=== PATIENT | male | born 1955 | race Caucasian/White ===

== ENCOUNTER 2021-11-30 05:06 | Emergency (ER) | payer OTHER, MEDICARE, MEDICAID, SELFPAY ==
--- NOTE | 2021-11-30 05:18 | ED_ITS ---
Documented by User: Jayesh Luther MD 12/12/21 01:41 HPI - General Adult General: Chief complaint: Shortness of Breath/Dyspnea Stated complaint: pt states low o2, high bp, heart problems Time Seen by Provider: 11/30/21 05:18 History of Present Illness: Mr. Siegel is a 66-year-old gentleman with significant past medical history of hypertension, hyperlipidemia, history of stroke on Eliquis, history of COPD with continued tobacco abuse who presents to the emergency department due to shortness of breath. Onset of symptoms was gradual few days ago. He endorses dyspnea on exertion as well as lying flat, this is gotten to the point that is marked including tachycardia with minimal exertion. He denies irregularity or associated chest pain. Mild associated increased cough. Overall course of symptoms has been worsening. Intensity is moderate to severe. No other specific changes in health, exacerbating, or alleviating factors identified. Onset (ago): day(s) Severity: moderate Exacerbating factors: movement Review of Systems General: Reports: 10 or more systems reviewed and unremarkable except in HPI and below PFSH ED PFSH: Medical History COPD (chronic obstructive pulmonary disease) Hypertension Stroke Social History Smoking and tobacco status: current every day smoker Physical Exam Const: COMMON NORMALS: alert GENERAL APPEARANCE: cooperative, well developed and ill appearing (Mildly) HENMT: COMMON NORMALS: normocephalic and atraumatic HEAD & SCALP: normocephalic and atraumatic THROAT: posterior oropharynx normal Eye: COMMON NORMALS: conjunctivae normal CONJUNCTIVA: Yes conjunctivae normal SCLERA: sclerae normal Neck/C-Spine: COMMON NORMALS: supple GENERAL: Yes trachea midline Resp: EFFORT & INSPECTION: Yes able to speak in complete sentences and Yes tachypneic AUSCULTATION: diminished lung sounds Cardio: COMMON NORMALS: regular rhythm RATE: tachycardic RHYTHM: regular rhythm GI: COMMON NORMALS: Soft to palpation PALPATION: Yes Soft to palpation and No Tenderness to palpation present (GI) PERCUSSION: normal to percussion Extremity: GENERAL: Yes normal exam except as noted and No edema Neuro: COMMON NORMALS: moves all extremities SENSORIUM/ORIENTATION: Yes alert and No Orientation impaired Psych: COMMON NORMALS: mental status grossly normal and Normal thought process present THOUGHT PROCESS: Normal thought process present Course ED course: - Patient was seen and evaluated by me at bedside - Patient placed on cardiac monitors, IV access obtained - Initial evaluation notable for exam as above - RT and COPD exacerbation treatment ordered -Patient care handed off to Dr. Mccauley pending completion of ED evaluation and reassessment for disposition. Vital Signs: Vital signs: Vital Signs Temperature 98.2 F 11/30/21 05:21 Pulse Rate 96 11/30/21 08:52 Respiratory Rate 17 11/30/21 08:52 Blood Pressure 136/84 11/30/21 05:21 Pulse Oximetry 92 11/30/21 08:52 MDM - General Adult Medical Records I reviewed the patient's medical records. Lab Data I reviewed the patient's lab results. : 11/30/21 05:31 11/30/21 05:31 Radiology Impressions Chest X-Ray 11/30/21 05:22 IMPRESSION: Consolidation in the peripheral left lower lung concerning for recurrent pneumonia. ADDENDUM: 11/30/21 0649 THIS REPORT CONTAINS FINDINGS THAT MAY BE CRITICAL TO PATIENT CARE. The findings were verbally communicated via telephone conference with ER Physician at 6:45 AM CDT on 11/30/2021. The findings were acknowledged and understood. ADDENDUM: 11/30/[address] Mccauley Laboratory Results WBC 21.3 10^3/uL (4.0-10.0) H 11/30/21 05:31 RBC 4.84 10^6/uL (4.1-5.3) 11/30/21 05:31 Hgb 14.7 g/dL (11.7-16.6) 11/30/21 05:31 Hct 43.3 % (42.0-52.0) 11/30/21 05:31 MCV 89.5 fl (80-94) 11/30/21 05:31 MCH 30.4 pg (28.0-34.0) 11/30/21 05:31 MCHC 33.9 g/dL (30.0-36.0) 11/30/21 05:31 RDW 12.4 % (12.1-15.1) 11/30/21 05:31 Plt Count 361 10^3/cmm (130-400) 11/30/21 05:31 MPV 8.8 fL (7.4-10.4) 11/30/21 05:31 Neut % (Auto) 84.4 % 11/30/21 05:31 Lymph % (Auto) 9.8 % 11/30/21 05:31 Runnels % (Auto) 4.5 % 11/30/21 05:31 Eos % (Auto) 0.3 % 11/30/21 05:31 Baso % (Auto) 0.3 % 11/30/21 05:31 Neut # (Auto) 17.97 10^3/uL (1.8-7.7) H 11/30/21 05:31 Lymph # (Auto) 2.1 10^3/uL (0.8-4.8) 11/30/21 05:31 Runnels # (Auto) 1.0 10^3/uL (0.2-0.9) H 11/30/21 05:31 Eos # (Auto) 0.1 10^3/uL (0.0-0.8) 11/30/21 05:31 Baso # (Auto) 0.1 10^3/uL (0.0-0.1) 11/30/21 05:31 Nucleated RBC % (auto) 0 % 11/30/21 05:31 Nucleated RBCs # 0.0 /100WBC 11/30/21 05:31 PT 19.20 SECONDS (12.1-14.9) H 11/30/21 05:31 INR 1.58 (0.8-1.2) H 11/30/21 05:31 Sodium 131 mmol/L (136-145) L 11/30/21 05:31 Potassium 4.3 mmol/L (3.5-5.1) 11/30/21 05:31 Chloride 95 mmol/L (98-107) L 11/30/21 05:31 Carbon Dioxide 21 mmol/L (22-29) L 11/30/21 05:31 Anion Gap 19.3 (5-19) H 11/30/21 05:31 BUN 12 mg/dL (8-23) 11/30/21 05:31 Creatinine 0.8 mg/dL (0.7-1.2) 11/30/21 05:31 GFR Calculation 97.0 mL/min (90-130) 11/30/21 05:31 Glucose 176 mg/dL (65-115) H 11/30/21 05:31 Calculated Osmolality 276 mOsm/kg (285-295) L 11/30/21 05:31 Lactate 1.6 mmol/L (0.5-2.2) 11/30/21 06:14 Calcium 9.6 mg/dL (8.5-10.5) 11/30/21 05:31 Total Bilirubin 0.4 mg/dL (0.15-1.2) 11/30/21 05:31 AST 8 U/L (0-40) 11/30/21 05:31 ALT 12 U/L (0-41) 11/30/21 05:31 Alkaline Phosphatase 131 IU/L (40-130) H 11/30/21 05:31 Troponin T Baseline 15 ng/L (0-15) 11/30/21 05:31 C-Reactive Protein 196.4 mg/L (0.0-4.9) H 11/30/21 05:31 NT-Pro-B Natriuret Pep 158 pg/mL (0-125) H 11/30/21 05:31 Total Protein 8.3 g/dL (6.6-8.7) 11/30/21 05:31 Albumin 3.7 g/dL (3.5-5.2) 11/30/21 05:31 Globulin 4.6 g/dL (1.3-4.6) 11/30/21 05:31 Procalcitonin 0.18 ng/mL (0-0.5) 11/30/21 05:31 TSH 2.52 uIU/mL (0.27-4.20) 11/30/21 05:31 Coronavirus 229E (PCR) Not detected (NOT DETECT) 11/30/21 07:40 SARS-CoV-2 (PCR) Not detected (NOT DETECT) 11/30/21 07:40 Discharge Plan Discharge Patient Disposition: Home Clinical Impression: Community acquired pneumonia, Acute exacerbation of chronic obstructive airways disease, Leukocytosis, Hyponatremia Condition: Stable Prescriptions: New Medrol (Mathieu) 4 mg tablets,dose pack See Rx Instructions .ROUTE .COMPLEX Qty: 21 0RF Rx Instructions: orally per package directions albuterol sulfate 90 mcg/actuation HFA aerosol inhaler 2 inh INHALATION Q4H PRN (Reason: shortness of breath or wheezing) Qty: 18 0RF Discharge Orders: Discharge ED (Routine); Ordered 11/30/21 Ordered By: Roberto Mccauley Other Ambulatory Orders: DME: Oxygen (Order) Location: None Selected Ordered By: Roberto Mccauley Referrals: Felton Edgar [Primary Care Provider] - Patient Instructions: Opioid Safety Activity Restrictions/Additional Instructions: Follow-up with your primary care doctor within the next 3 to 5 days. If you have any worsening symptoms return. Wear oxygen continuously. Sign Out Sign Out Data: Patient Sign Out occurred on 11/30/21 at 06:52. Patient's care was discussed, and care was transferred from to Roberto Mccauley DO. Coding Level of Care Code ED Embalmer/Funeral Director for Chg Fwd Exam Comprehensive Documented by User: Roberto Mccauley DO 12/09/21 15:57 HPI - General Adult General: Chief complaint: Shortness of Breath/Dyspnea Stated complaint: pt states low o2, high bp, heart problems Time Seen by Provider: 11/30/21 05:18 [facility] ED PFSH: Medical History COPD (chronic obstructive pulmonary disease) Hypertension Stroke Social History Smoking and tobacco status: current every day smoker Course Vital Signs: Vital signs: Vital Signs Temperature 98.2 F 11/30/21 05:21 Pulse Rate 96 11/30/21 08:52 Respiratory Rate 17 11/30/21 08:52 Blood Pressure 136/84 11/30/21 05:21 Pulse Oximetry 92 11/30/21 08:52 MDM - General Adult Medical Decision Making Care assumed at change of shift. Patient has significantly elevated CRP as well as leukocytosis. However looking back through his records the previous blood counts we have are frequently elevated over 20,000. He does not take steroids on a regular basis. Also he is on Eliquis although in talking to him I am not entirely sure why. He states he had a stroke but he does not remember ever being told he had atrial fibrillation or DVT. He also has known coronary disease has previously had a stent. He normally does not wear oxygen but is requiring it now. Chest x-ray shows a left lower lobe pneumonia which appears to be recurrent. On exam his lung sounds are relatively clear other than some slight rales at the left base. He would prefer to go home. His oxygen nation improved with 2 L by nasal cannula. We will discharge him home with home oxygen start him on doxycycline and steroid taper. Strongly recommend he follow-up with his primary care doctor for follow-up chest x-ray and lab work including a CBC BMP to reevaluate his leukocytosis and hyponatremia and chest x-ray to document resolution of his pneumonia. He has any worsening symptoms he was asked to return to the emergency room. His CRP is marked elevated this could be due to his pneumonia or due to COVID which we are screening him for. If he does have COVID he is tolerating relatively well. He does not have a chest x-ray consistent with a typical COVID course at this time. Medical Records I reviewed the patient's medical records. Lab Data I reviewed the patient's lab results. : 11/30/21 05:31 11/30/21 05:31 Radiology Impressions Chest X-Ray 11/30/21 05:22 IMPRESSION: Consolidation in the peripheral left lower lung concerning for recurrent pneumonia. ADDENDUM: 11/30/21 0649 THIS REPORT CONTAINS FINDINGS THAT MAY BE CRITICAL TO PATIENT CARE. The findings were verbally communicated via telephone conference with ER Physician at 6:45 AM CDT on 11/30/2021. The findings were acknowledged and understood. ADDENDUM: 11/30/21 [address] Mccauley Laboratory Results WBC 21.3 10^3/uL (4.0-10.0) H 11/30/21 05:31 RBC 4.84 10^6/uL (4.1-5.3) 11/30/21 05:31 Hgb 14.7 g/dL (11.7-16.6) 11/30/21 05:31 Hct 43.3 % (42.0-52.0) 11/30/21 05:31 MCV 89.5 fl (80-94) 11/30/21 05:31 MCH 30.4 pg (28.0-34.0) 11/30/21 05:31 MCHC 33.9 g/dL (30.0-36.0) 11/30/21 05:31 RDW 12.4 % (12.1-15.1) 11/30/21 05:31 Plt Count 361 10^3/cmm (130-400) 11/30/21 05:31 MPV 8.8 fL (7.4-10.4) 11/30/21 05:31 Neut % (Auto) 84.4 % 11/30/21 05:31 Lymph % (Auto) 9.8 % 11/30/21 05:31 Runnels % (Auto) 4.5 % 11/30/21 05:31 Eos % (Auto) 0.3 % 11/30/21 05:31 Baso % (Auto) 0.3 % 11/30/21 05:31 Neut # (Auto) 17.97 10^3/uL (1.8-7.7) H 11/30/21 05:31 Lymph # (Auto) 2.1 10^3/uL (0.8-4.8) 11/30/21 05:31 Runnels # (Auto) 1.0 10^3/uL (0.2-0.9) H 11/30/21 05:31 Eos # (Auto) 0.1 10^3/uL (0.0-0.8) 11/30/21 05:31 Baso # (Auto) 0.1 10^3/uL (0.0-0.1) 11/30/21 05:31 Nucleated RBC % (auto) 0 % 11/30/21 05:31 Nucleated RBCs # 0.0 /100WBC 11/30/21 05:31 PT 19.20 SECONDS (12.1-14.9) H 11/30/21 05:31 INR 1.58 (0.8-1.2) H 11/30/21 05:31 Sodium 131 mmol/L (136-145) L 11/30/21 05:31 Potassium 4.3 mmol/L (3.5-5.1) 11/30/21 05:31 Chloride 95 mmol/L (98-107) L 11/30/21 05:31 Carbon Dioxide 21 mmol/L (22-29) L 11/30/21 05:31 Anion Gap 19.3 (5-19) H 11/30/21 05:31 BUN 12 mg/dL (8-23) 11/30/21 05:31 Creatinine 0.8 mg/dL (0.7-1.2) 11/30/21 05:31 GFR Calculation 97.0 mL/min (90-130) 11/30/21 05:31 Glucose 176 mg/dL (65-115) H 11/30/21 05:31 Calculated Osmolality 276 mOsm/kg (285-295) L 11/30/21 05:31 Lactate 1.6 mmol/L (0.5-2.2) 11/30/21 06:14 Calcium 9.6 mg/dL (8.5-10.5) 11/30/21 05:31 Total Bilirubin 0.4 mg/dL (0.15-1.2) 11/30/21 05:31 AST 8 U/L (0-40) 11/30/21 05:31 ALT 12 U/L (0-41) 11/30/21 05:31 Alkaline Phosphatase 131 IU/L (40-130) H 11/30/21 05:31 Troponin T Baseline 15 ng/L (0-15) 11/30/21 05:31 C-Reactive Protein 196.4 mg/L (0.0-4.9) H 11/30/21 05:31 NT-Pro-B Natriuret Pep 158 pg/mL (0-125) H 11/30/21 05:31 Total Protein 8.3 g/dL (6.6-8.7) 11/30/21 05:31 Albumin 3.7 g/dL (3.5-5.2) 11/30/21 05:31 Globulin 4.6 g/dL (1.3-4.6) 11/30/21 05:31 Procalcitonin 0.18 ng/mL (0-0.5) 11/30/21 05:31 TSH 2.52 uIU/mL (0.27-4.20) 11/30/21 05:31 Coronavirus 229E (PCR) Not detected (NOT DETECT) 11/30/21 07:40 SARS-CoV-2 (PCR) Not detected (NOT DETECT) 11/30/21 07:40 Discharge Plan Discharge Patient Disposition: Home Clinical Impression: Community acquired pneumonia, Acute exacerbation of chronic obstructive airways disease, Leukocytosis, Hyponatremia Condition: Stable Prescriptions: New Medrol (Mathieu) 4 mg tablets,dose pack See Rx Instructions .ROUTE .COMPLEX Qty: 21 0RF Rx Instructions: orally per package directions albuterol sulfate 90 mcg/actuation HFA aerosol inhaler 2 inh INHALATION Q4H PRN (Reason: shortness of breath or wheezing) Qty: 18 0 RF Discharge Orders: Discharge ED (Routine); Ordered 11/30/21 Ordered By: Roberto Mccauley Other Ambulatory Orders: DME: Oxygen (Order) Location: None Selected Ordered By: Roberto Mccauley Referrals: Felton Edgar [Primary Care Provider] - Patient Instructions: Opioid Safety Activity Restrictions/Additional Instructions: Follow-up with your primary care doctor within the next 3 to 5 days. If you have any worsening symptoms return. Wear oxygen continuously. Sign Out Sign Out Data: Patient Sign Out occurred on 11/30/21 at 06:52. Patient's care was discussed, and care was transferred from to Roberto Mccauley DO. Coding Level of Care Code ED Embalmer/Funeral Director for Bernice Fwd Exam Comprehensive
[2021-11-30 05:21] VITALS: BP 136/84; PULSE 120; RESP 24; TEMP 36.8; O2SAT 91; BMI 33.2
--- NOTE | 2021-11-30 05:22 | XRR_ITS ---
PROCEDURE INFORMATION: Exam: XR Chest Exam date and time: 11/30/2021 5:52 AM Age: 66 years old Clinical indication: Shortness of breath; Patient HX: C/O SOB with elevated heart rate. TECHNIQUE: Imaging protocol: XR of the chest. Views: 1 view. COMPARISON: 1. CT[place] Chest[place]ulmonary [place] [id number] 09/09/2018 8:26 AM 2. CR Chest 1 [place] [id number] 09/09/2018 7:04 AM FINDINGS: Lungs: Consolidation in the peripheral left lower lung concerning for recurrent pneumonia. The remainder of the lung parenchyma is clear. Pleural spaces: No pneumothorax. No pleural effusion. Heart/Mediastinum: The cardiomediastinal silhouette is within normal limits. Bones/joints: Unremarkable. XR/XR chest 1V portable [id number] IMPRESSION: Consolidation in the peripheral left lower lung concerning for recurrent pneumonia.
--- NOTE | 2021-11-30 05:23 | ECG_ITS ---
[facility] Test Date: 2021-11-30 Pat Name: Chacorta Siegel Department: Room: Gender: Male Retention Representative: : [id number] Requested By: Jayesh Luther Order Number: [id number] Jannie MD: Sada Fay M.D. Measurements Intervals [place] Rate: 115 P: 76 AK: 165 QRS: -86 QRSD: 89 T: 79 QT: 307 QTc: 426 Interpretive Statements SINUS TACHYCARDIA LEFT AXIS DEVIATION [QRS AXIS < -30] POSSIBLE RIGHT VENTRICULAR CONDUCTION DELAY [RSR (QR) IN V1/V2] POSSIBLE ANTERIOR MYOCARDIAL INFARCTION , OF INDETERMINATE AGE [30 ms Q WAVE IN V3/V4, OR R < 0.2 mV IN V4] Compared to ECG 09/09/2018 12:38:22 Left-axis deviation now present Sinus rhythm no longer present Myocardial infarct finding still present Electronically Signed On 11-30-2021 20:10:01 CDT by Sada Fay M.D. [id number]
[2021-11-30 05:37] LABS: Basophils # 0.1 10^3/uL (0.0-0.1); Basophils % 0.3 %; Eosinophils # 0.1 10^3/uL (0.0-0.8); Eosinophils % 0.3 %; Hematocrit 43.3 % (42.0-52.0); Hemoglobin 14.7 g/dL (11.7-16.6); Lymphocytes # 2.1 10^3/uL (0.8-4.8); Lymphocytes % 9.8 %; Mean Corpuscular HGB Conc 33.9 g/dL (30.0-36.0); Mean Corpuscular Hemoglobin 30.4 pg (28.0-34.0); Mean Corpuscular Volume 89.5 fl (80-94); Mean Platelet Volume 8.8 fL (7.4-10.4); Monocytes % 4.5 %; Neutrophils # 17.97 10^3/uL (1.8-7.7); Neutrophils % 84.4 %; Nucleated Red Blood Cells % 0 %; Platelet Count 361 10^3/cmm (130-400); Red Blood Count 4.84 10^6/uL (4.1-5.3); Red Cell Distribution Width 12.4 % (12.1-15.1); White Blood Count 21.3 10^3/uL (4.0-10.0)
[2021-11-30 05:57] LABS: INR 1.58 (0.8-1.2)
[2021-11-30 06:07] LABS: Troponin(5th) Baseline 15 ng/L (0-15)
[2021-11-30 06:14] VITALS: PULSE 104; RESP 18; O2SAT 94
[2021-11-30 06:14] LABS: NT Pro B Type Natriuretic Pept 158 pg/mL (0-125); Procalcitonin 0.18 ng/mL (0-0.5); Thyroid Stimulating Hormone 2.52 uIU/mL (0.27-4.20)
[2021-11-30] MEDS: ipratropium-albuterol 3 mL Neb INHALATION (06:14)
[2021-11-30 06:18] VITALS: PULSE 103
[2021-11-30] MEDS: sodium chloride 0.9% 1,000 ML 999 ML IV (06:18)
[2021-11-30] MEDS: doxycycline 100 MG in sodium chloride 0.9% (plus) 100 ML IV (06:19)
[2021-11-30 06:25] LABS: Alanine Aminotransferase 12 U/L (0-41); Albumin Level 3.7 g/dL (3.5-5.2); Alkaline Phosphatase 131 IU/L (40-130); Anion Gap 19.3 (5-19); Aspartate Amino Transferase 8 U/L (0-40); Blood Urea Nitrogen 12 mg/dL (8-23); C Reactive Protein 196.4 mg/L (0.0-4.9); Calcium 9.6 mg/dL (8.5-10.5); Carbon Dioxide 21 mmol/L (22-29); Chloride 95 mmol/L (98-107); Creatinine Clr Calc Pharmacy 98.5104; Globulin 4.6 g/dL (1.3-4.6); Glucose 176 mg/dL (65-115); Osmolality Calculated 276 mOsm/kg (285-295); Potassium 4.3 mmol/L (3.5-5.1); Sodium 131 mmol/L (136-145); Total Bilirubin 0.4 mg/dL (0.15-1.2); Total Protein 8.3 g/dL (6.6-8.7)
[2021-11-30 06:42] LABS: Lactate (Lactic Acid level) 1.6 mmol/L (0.5-2.2)
[2021-11-30 08:46] VITALS: O2SAT 85; O2SAT 90; O2SAT 93
[2021-11-30 08:51] VITALS: PULSE 96; RESP 17; O2SAT 92
[2021-11-30 08:52] VITALS: PULSE 96; RESP 17; O2SAT 92
[2021-11-30 10:39] LABS: Adenovirus Not Detected (NOT DETECT); Chlamydia Pneumoniae Not Detected (NOT DETECT); Coronavirus 229E,HKU1,NL63,OC4 Not Detected (NOT DETECT); Human Metapneumovirus Not Detected (NOT DETECT); Human Rhinovirus/Enterovirus Not Detected (NOT DETECT); Influenza A Not Detected (NOT DETECT); Influenza A H1 Not Detected (NOT DETECT); Influenza A H1-2009 Not Detected (NOT DETECT); Influenza A H3 Not Detected (NOT DETECT); Influenza B Not Detected (NOT DETECT); Mycoplasma Pneumoniae Not Detected (NOT DETECT); Parainfluenza Virus Type 1 Not Detected (NOT DETECT); Parainfluenza Virus Type 2 Not Detected (NOT DETECT); Parainfluenza Virus Type 3 Not Detected (NOT DETECT); Parainfluenza Virus Type 4 Not Detected (NOT DETECT); Respiratory Syncytial Virus A Not Detected (NOT DETECT); Respiratory Syncytial Virus B Not Detected (NOT DETECT); SARS-COV-2 Not Detected (NOT DETECT)
== END 2021-11-30 08:53 | disposition home or self-care (01) ==
PROVIDERS: Emergency Medicine; Emergency Provider Family Medicine; PCP Internal Medicine
DX: J18.9 Pneumonia, unspecified organism (principal); J44.1 Chronic obstructive pulmonary disease with (acute) exacerbation; J44.0 Chronic obstructive pulmonary disease with (acute) lower respiratory infection; D72.829 Elevated white blood cell count, unspecified; E87.1 Hypo-osmolality and hyponatremia; I10 Essential (primary) hypertension; F17.200 Nicotine dependence, unspecified, uncomplicated; I25.10 Atherosclerotic heart disease of native coronary artery without angina pectoris; Z86.73 Personal history of transient ischemic attack (TIA), and cerebral infarction without residual deficits; Z95.5 Presence of coronary angioplasty implant and graft; Z20.822 Contact with and (suspected) exposure to COVID-19; Z79.01 Long term (current) use of anticoagulants
CPT/HCPCS: 71045; 80053; 83605; 83880; 84145; 84443; 84484; 85025; 85610; 86140; 87635; 93005; 94640; 96365; 96375; 99285; J2930; J3490; J7030

== ENCOUNTER 2021-12-01 14:16 | Emergency (ER) | payer OTHER, MEDICARE, MEDICAID, SELFPAY ==
[2021-12-01 14:27] VITALS: BP 108/52; PULSE 105; RESP 18; TEMP 36.9; O2SAT 95; BMI 34.2
--- NOTE | 2021-12-01 15:32 | PC.NURSE ---
hr:102 rr: 18 bp: 125/70 o2:90
== END 2021-12-01 16:15 | disposition left against medical advice (07) ==
PROVIDERS: Emergency Provider Family Medicine; PCP Internal Medicine
DX: Z53.21 Procedure and treatment not carried out due to patient leaving prior to being seen by health care provider (principal); I95.9 Hypotension, unspecified

== ENCOUNTER 2021-12-27 05:20 | Emergency (ER) | payer OTHER, MEDICARE, MEDICAID, SELFPAY ==
[2021-12-27 05:28] VITALS: BP 104/82; PULSE 113; RESP 20; TEMP 36.6; O2SAT 95; BMI 33.3
--- NOTE | 2021-12-27 05:29 | CTR_ITS ---
PROCEDURE INFORMATION: Exam: CT Neck With Contrast Exam date and time: 12/27/2021 6:22 AM Age: 66 years old Clinical indication: Neck pain TECHNIQUE: Imaging protocol: Computed tomography of the neck with contrast. Total images: 2 Radiation optimization: All CT scans at this facility use at least one of these dose optimization techniques: automated exposure control; mA and/or kV adjustment per patient size (includes targeted exams where dose is matched to clinical indication); or iterative reconstruction. Contrast material: OMNI 350; Contrast volume: 95 ml; Contrast route: INTRAVENOUS (IV); COMPARISON: CT head wo con* [id number] 05/02/2018 9:21 AM RADIATION DOSE METRICS: Total DLP (mGy-cm): 508.13 FINDINGS: Pharynx: Irregular fluid collections within the para tonsillar tissues bilaterally right greater than left with irregular lobulated wall enhancement. Communication with oropharynx and hypopharynx noted and findings felt to represent abscesses. A necrotic mass could give a similar appearance. Irregular fluid collection is largest on the right and measures approximately 4.1 x 2.4 x 2.0 cm. Larynx: Unremarkable. Epiglottis is normal. Prevertebral and retropharyngeal spaces: No extension into the prevertebral/retropharyngeal space. Salivary glands: Normal. Glands are normal in size. Thyroid: Normal. No enlarged or calcified nodules. Lymph nodes: Mildly prominent enhancing lymph nodes in the neck bilaterally. Largest in the right jugular chain along anterior margin of the sternocleidomastoid muscle has short axis diameter of 12 mm. Trachea: Visualized trachea is unremarkable. Lungs: Moderate centrilobular emphysematous changes are present. Ground-glass opacity present in the left upper lobe nonspecific and may represent atelectasis, edema and or pneumonia. Esophagus: Debris noted and upper thoracic esophagus. Bones/joints: Unremarkable. No acute fracture. Vasculature: Mild atherosclerotic disease is evident. Calcified atherosclerotic plaque is noted at the carotid bifurcations bilaterally. Soft tissues: Unremarkable. No significant soft tissue swelling. Other findings: Examination is motion limited. CT/CT neck w con* [id number] IMPRESSION: 1. Irregular fluid collections within the para tonsillar tissues bilaterally right greater than left with irregular lobulated wall enhancement. Communication with oropharynx and hypopharynx noted and findings felt to represent abscesses. A necrotic mass could give a similar appearance. Irregular fluid collection is largest on the right and measures approximately 4.1 x 2.4 x 2.0 cm. 2. No extension into the prevertebral/retropharyngeal space. 3. Mildly prominent enhancing lymph nodes in the neck bilaterally. Largest in the right jugular chain along anterior margin of the sternocleidomastoid muscle has short axis diameter of 12 mm. 4. Debris noted and upper thoracic esophagus. 5. Moderate centrilobular emphysematous changes are present. 6. Ground-glass opacity present in the left upper lobe nonspecific and may represent atelectasis, edema and or pneumonia.
--- NOTE | 2021-12-27 05:36 | W.ED.GENADLT ---
HPI - General Adult General: Chief complaint: General Medical Stated complaint: unable to eat or drink Time Seen by Provider: 12/27/21 05:29 Source: patient Mode of arrival: ambulatory Limitations: no limitations History of Present Illness: 66-year-old male has a history of COPD states that he has had a cough over the last 2 to 3 weeks seen here 2 weeks ago with his cough. He states that today though he started having severe sore throat after coughing fit. He states that he is having pain in the right side of his throat with slight muffled voice and he said he is having painful and difficulty swallowing. He is handling secretions well here. He had no fever no vomiting no diarrhea. Associated symptoms: Deny chest pain, headache(s), nausea, rash or vomiting Review of Systems Const: Denies: fever(s), chills, body aches or change in appetite Eyes: Denies: blurry vision or eye discomfort ENMT: Reports: throat pain and odynophagia Card: Denies: chest pain Resp: Reports: non-productive cough GI: Denies: abdominal pain, nausea, vomiting or diarrhea : Denies: dysuria Musc: Denies: neck pain or back pain Skin/Breast: Denies: rash Neuro: Denies: headache(s) Psych: Denies: depression Paco/Lymph: Denies: easy bruising All/Imm: Denies: urticaria PFSH ED PFSH: Medical History COPD (chronic obstructive pulmonary disease) Hypertension Stroke Social History Smoking and tobacco status: current every day smoker Physical Exam Const: COMMON NORMALS: patient oriented x3 HENMT: COMMON NORMALS: normocephalic and atraumatic HEAD & SCALP: normocephalic and atraumatic OTHER: slight uvula devation to left with erythema to posterior pharynx no difficulty handling secretions Eye: COMMON NORMALS: Equal, round and reactive pupils present and EOMs intact bilaterally PUPIL: Yes Equal, round and reactive pupils present Neck/C-Spine: COMMON NORMALS: full ROM and supple Chest: COMMONS NORMALS: normal inspection of the chest and normal palpation of entire chest wall Resp: COMMON NORMALS: normal respiratory effort, No retractions, No use of accessory muscles and clear to auscultation bilaterally AUSCULTATION: clear to auscultation bilaterally Cardio: COMMON NORMALS: regular rhythm and No murmurs present (Cardio) RATE: tachycardic RHYTHM: regular rhythm GI: COMMON NORMALS: Normal to inspection, nondistended, normoactive bowel sounds present, Soft to palpation, non-tender and no masses PALPATION: Yes Soft to palpation Extremity: COMMON NORMALS: normal to inspection and full ROM Neuro: COMMON NORMALS: patient oriented x3, moves all extremities and no focal motor deficits Psych: COMMON NORMALS: mental status grossly normal, Normal thought process present and cooperative THOUGHT PROCESS: Normal thought process present Skin: COMMON NORMALS: no rashes or lesions noted and no wounds GENERAL SKIN EXAM: no rashes or lesions noted Course Vital Signs: Vital signs: Vital Signs Temperature 97.9 F 12/27/21 05:28 Pulse Rate 88 12/27/21 07:19 Respiratory Rate 23 H 12/27/21 07:19 Blood Pressure 109/60 12/27/21 07:19 Pulse Oximetry 94 12/27/21 07:19 [facility] - General Adult Medical Decision Making pt care turned over to dr. seals pending ct soft tissue neck Lab Data : 12/27/21 05:40 12/27/21 05:[address] 12/27/21 05:29 IMPRESSION: 1. Irregular fluid collections within the para tonsillar tissues bilaterally right greater than left with irregular lobulated wall enhancement. Communication with oropharynx and hypopharynx noted and findings felt to represent abscesses. A necrotic mass could give a similar appearance. Irregular fluid collection is largest on the right and measures approximately 4.1 x 2.4 x 2.0 cm. 2. No extension into the prevertebral/retropharyngeal space. 3. Mildly prominent enhancing lymph nodes in the neck bilaterally. Largest in the right jugular chain along anterior margin of the sternocleidomastoid muscle has short axis diameter of 12 mm. 4. Debris noted and upper thoracic esophagus. 5. Moderate centrilobular emphysematous changes are present. 6. Ground-glass opacity present in the left upper lobe nonspecific and may represent atelectasis, edema and or pneumonia. Laboratory Results WBC 14.0 10^3/uL (4.0-10.0) H 12/27/21 05:40 RBC 4.91 10^6/uL (4.1-5.3) 12/27/21 05:40 Hgb 14.5 g/dL (11.7-16.6) 12/27/21 05:40 Hct 42.4 % (42.0-52.0) 12/27/21 05:40 MCV 86.4 fl (80-94) 12/27/21 05:40 MCH 29.5 pg (28.0-34.0) 12/27/21 05:40 MCHC 34.2 g/dL (30.0-36.0) 12/27/21 05:40 RDW 12.8 % (12.1-15.1) 12/27/21 05:40 Plt Count 541 10^3/cmm (130-400) H 12/27/21 05:40 MPV 9.0 fL (7.4-10.4) 12/27/21 05:40 Neut % (Auto) 71.3 % 12/27/21 05:40 Lymph % (Auto) 19.9 % 12/27/21 05:40 Harvey % (Auto) 6.5 % 12/27/21 05:40 Eos % (Auto) 0.8 % 12/27/21 05:40 Baso % (Auto) 0.4 % 12/27/21 05:40 Neut # (Auto) 9.95 10^3/uL (1.8-7.7) H 12/27/21 05:40 Lymph # (Auto) 2.8 10^3/uL (0.8-4.8) 12/27/21 05:40 Harvey # (Auto) 0.9 10^3/uL (0.2-0.9) 12/27/21 05:40 Eos # (Auto) 0.1 10^3/uL (0.0-0.8) 12/27/21 05:40 Baso # (Auto) 0.1 10^3/uL (0.0-0.1) 12/27/21 05:40 Nucleated RBC % (auto) 0 % 12/27/21 05:40 Nucleated RBCs # 0.0 /100WBC 12/27/21 05:40 Sodium 132 mmol/L (136-145) L 12/27/21 05:40 Potassium 4.4 mmol/L (3.5-5.1) 12/27/21 05:40 Chloride 96 mmol/L (98-107) L 12/27/21 05:40 Carbon Dioxide 20 mmol/L (22-29) L 12/27/21 05:40 Anion Gap 20.4 (5-19) H 12/27/21 05:40 BUN 14 mg/dL (8-23) 12/27/21 05:40 Creatinine 0.8 mg/dL (0.7-1.2) 12/27/21 05:40 GFR Calculation 97.0 mL/min (90-130) 12/27/21 05:40 Glucose 136 mg/dL (65-115) H 12/27/21 05:40 Calculated Osmolality 277 mOsm/kg (285-295) L 12/27/21 05:40 Calcium 9.3 mg/dL (8.5-10.5) 12/27/21 05:40 Total Bilirubin 0.3 mg/dL (0.15-1.2) 12/27/21 05:40 AST 14 U/L (0-40) 12/27/21 05:40 ALT 13 U/L (0-41) 12/27/21 05:40 Alkaline Phosphatase 102 IU/L (40-130) 12/27/21 05:40 Total Protein 7.7 g/dL (6.6-8.7) 12/27/21 05:40 Albumin 3.4 g/dL (3.5-5.2) L 12/27/21 05:40 Globulin 4.3 g/dL (1.3-4.6) 12/27/21 05:40 Discharge Plan Discharge Patient Disposition: Xfer Short-Term Hosp Condition: Stable Referrals: Felton Edgar [Primary Care Provider] - Coding Level of Care Code ED [facility] Fwd Exam Comprehensive
[2021-12-27] MEDS: sodium chloride 0.9% 1,000 ML 999 ML IV (05:43)
[2021-12-27] MEDS: dexamethasone 10 mg/mL INJ IVP (05:43)
[2021-12-27 05:47] LABS: Basophils # 0.1 10^3/uL (0.0-0.1); Basophils % 0.4 %; Eosinophils # 0.1 10^3/uL (0.0-0.8); Eosinophils % 0.8 %; Hematocrit 42.4 % (42.0-52.0); Hemoglobin 14.5 g/dL (11.7-16.6); Lymphocytes # 2.8 10^3/uL (0.8-4.8); Lymphocytes % 19.9 %; Mean Corpuscular HGB Conc 34.2 g/dL (30.0-36.0); Mean Corpuscular Hemoglobin 29.5 pg (28.0-34.0); Mean Corpuscular Volume 86.4 fl (80-94); Monocytes # 0.9 10^3/uL (0.2-0.9); Monocytes % 6.5 %; Neutrophils # 9.95 10^3/uL (1.8-7.7); Neutrophils % 71.3 %; Nucleated Red Blood Cells % 0 %; Platelet Count 541 10^3/cmm (130-400); Red Blood Count 4.91 10^6/uL (4.1-5.3); Red Cell Distribution Width 12.8 % (12.1-15.1)
[2021-12-27 06:03] LABS: Alanine Aminotransferase 13 U/L (0-41); Albumin Level 3.4 g/dL (3.5-5.2); Alkaline Phosphatase 102 IU/L (40-130); Anion Gap 20.4 (5-19); Aspartate Amino Transferase 14 U/L (0-40); Blood Urea Nitrogen 14 mg/dL (8-23); Calcium 9.3 mg/dL (8.5-10.5); Carbon Dioxide 20 mmol/L (22-29); Chloride 96 mmol/L (98-107); Globulin 4.3 g/dL (1.3-4.6); Glucose 136 mg/dL (65-115); Osmolality Calculated 277 mOsm/kg (285-295); Potassium 4.4 mmol/L (3.5-5.1); Sodium 132 mmol/L (136-145); Total Bilirubin 0.3 mg/dL (0.15-1.2); Total Protein 7.7 g/dL (6.6-8.7)
[2021-12-27] MEDS: iohexol 350 mg/mL 100 mL Btl IV (06:21)
[2021-12-27] MEDS: vancomycin 1,000 MG in sodium chloride 0.9% 250 ML 250 MG IV (07:18)
[2021-12-27 07:19] VITALS: BP 109/60; PULSE 88; RESP 23; O2SAT 94
[2021-12-27] MEDS: ampicillin-sulbactam 3 GM in sodium chloride 0.9% (plus) 50 ML IV (08:21)
[2021-12-27] MEDS: nicotine 21 mg Patch 1 PATCH TRANSDERMA (08:27)
[2021-12-27] MEDS: ketorolac 30 mg/mL INJ 15 MG IVP (09:11)
== END 2021-12-27 09:28 | disposition short-term general hospital (02) ==
PROVIDERS: Emergency Medicine; Emergency Provider Family Medicine; PCP Internal Medicine
DX: J36 Peritonsillar abscess (principal); R59.0 Localized enlarged lymph nodes; J44.9 Chronic obstructive pulmonary disease, unspecified; F17.200 Nicotine dependence, unspecified, uncomplicated; I10 Essential (primary) hypertension; Z86.73 Personal history of transient ischemic attack (TIA), and cerebral infarction without residual deficits
CPT/HCPCS: 70491; 80053; 85025; 96365; 96367; 96375; 99285; J0295; J1100; J1885; J3370; J7030; J7050; Q9967

== ENCOUNTER 2022-01-22 04:04 | Emergency (ER) | payer OTHER, MEDICARE, MEDICAID, SELFPAY ==
[2022-01-22] VITALS (7 sets, daily range): BP systolic 75–118; BP diastolic 53–66; PULSE 84–114; RESP 18–28; TEMP 37; O2SAT 91–94; BMI 34.2
--- NOTE | 2022-01-22 04:16 | ECG_ITS ---
[facility] Test Date: 2022-01-22 Pat Name: Chacorta Siegel Department: Room: Gender: Male [employer]: : [id number] Requested By: Mayur Sanchez Order Number: [id number] Jannie MD: Matthias Banerjee M.D. Measurements Intervals [place] Rate: 110 P: 56 VT: 150 QRS: 248 QRSD: 96 T: 45 QT: 321 QTc: 434 Interpretive Statements SINUS TACHYCARDIA POSSIBLE RIGHT VENTRICULAR HYPERTROPHY [SOME/ALL OF: PROMINENT R IN V1, LATE TRANSITION, RAD, TORI, SSS] POSSIBLE ANTERIOR MYOCARDIAL INFARCTION , OF INDETERMINATE AGE [30 ms Q WAVE IN V3/V4, OR R < 0.2 mV IN V4] Compared to ECG 11/30/2021 05:27:47 Atrial abnormality now present Left-axis deviation no longer present Myocardial infarct finding still present Electronically Signed On 01-22-2022 10:36:59 CDT by Matthias Banerjee M.D. [email or web address]
--- NOTE | 2022-01-22 04:44 | CTR_ITS ---
PROCEDURE INFORMATION: Exam: CTA Chest With Contrast Exam date and time: 01/22/2022 6:16 AM Age: 66 years old Clinical indication: Shortness of breath; Additional info: SOB, hypoxia, tachycardia TECHNIQUE: Imaging protocol: Computed tomographic angiography of the chest with contrast. 3D rendering (Not supervised by radiologist): MIP and/or 3D reconstructed images were created by the technologist. Radiation optimization: All CT scans at this facility use at least one of these dose optimization techniques: automated exposure control; mA and/or kV adjustment per patient size (includes targeted exams where dose is matched to clinical indication); or iterative reconstruction. Contrast material: OMNI 350; Contrast volume: 70 ml; Contrast route: INTRAVENOUS (IV); COMPARISON: CTA Chest-Pulmonary Emb [id number] 09/09/2018 8:26 AM RADIATION DOSE METRICS: Total DLP (mGy-cm): 396.51 FINDINGS: Pulmonary arteries: Normal. No pulmonary emboli. Aorta: Unremarkable. No aortic aneurysm. No aortic dissection. Lungs: Centrilobular emphysema is present. There is ground-glass opacities scattered throughout both lungs in a predominantly peripheral distribution, involving mainly the left lung. Pleural spaces: Unremarkable. No pneumothorax. No pleural effusion. Heart: Normal heart size. Coronary atherosclerotic calcifications seen. No pericardial effusion. Lymph nodes: Tiny calcified lymph nodes noted in the left hilar region, likely sequela of previous granulomatous disease. Liver: The liver demonstrates volume redistribution and nodular contour, consistent with cirrhosis. No discrete mass lesion seen. Spleen: There is tiny calcific densities scattered throughout the spleen, likely sequela of previous granulomatous disease. The spleen is otherwise unremarkable. Bones/joints: Degenerative changes of the spine seen. Old healed fracture deformity noted in the left lower ribcage. Soft tissues: Unremarkable. CT/CT angio chest PE protcl [id number] IMPRESSION: Commonly reported imaging features of (COVID-19) pneumonia are present. Other processes such as influenza pneumonia and organizing pneumonia, as can be seen with drug toxicity and connective tissue disease, can cause a similar imaging pattern.
--- NOTE | 2022-01-22 04:44 | CTR_ITS ---
PROCEDURE INFORMATION: Exam: CT Head Without Contrast Exam date and time: 01/22/2022 6:10 AM Age: 66 years old Clinical indication: Pain; Headache; Other: Throat cancer diagnosis recently; Additional info: Headache HX cancer TECHNIQUE: Imaging protocol: Computed tomography of the head without contrast. Radiation optimization: All CT scans at this facility use at least one of these dose optimization techniques: automated exposure control; mA and/or kV adjustment per patient size (includes targeted exams where dose is matched to clinical indication); or iterative reconstruction. COMPARISON: CT head wo con* [id number] 05/02/2018 9:21 AM RADIATION DOSE METRICS: Total DLP (mGy-cm): 1023.28 FINDINGS: Brain: Patchy hypoattenuation in the periventricular and subcortical white matter, consistent with chronic small vessel ischemia. No CT evidence of acute ischemia. No acute hemorrhage. No mass effect. Remote lacunar infarcts in the left basal ganglia. Cerebral ventricles: No ventriculomegaly. Paranasal sinuses: Moderate mucosal thickening of the left maxillary sinus. Mild mucosal thickening of the ethmoid air cells. Mastoid air cells: Visualized mastoid air cells are well aerated. Bones/joints: Unremarkable. No acute fracture. Soft tissues: Unremarkable. CT/CT head wo con* [id number] IMPRESSION: No acute intracranial abnormality. Please note that MRI is more sensitive for early changes of acute ischemia.
[2022-01-22] MEDS: sodium chloride 0.9% 1,000 ML 999 ML IV ×2 (04:55→09:26)
[2022-01-22 05:02] LABS: Basophils # 0.1 10^3/uL (0.0-0.1); Basophils % 0.3 %; Eosinophils # 0.2 10^3/uL (0.0-0.8); Eosinophils % 1.1 %; Hematocrit 41.9 % (42.0-52.0); Hemoglobin 13.7 g/dL (11.7-16.6); Lymphocytes # 2.8 10^3/uL (0.8-4.8); Lymphocytes % 14.2 %; Mean Corpuscular HGB Conc 32.7 g/dL (30.0-36.0); Mean Corpuscular Hemoglobin 29.3 pg (28.0-34.0); Mean Corpuscular Volume 89.5 fl (80-94); Mean Platelet Volume 9.7 fL (7.4-10.4); Monocytes # 1.3 10^3/uL (0.2-0.9); Monocytes % 6.8 %; Neutrophils # 14.83 10^3/uL (1.8-7.7); Neutrophils % 76.8 %; Nucleated Red Blood Cells % 0 %; Platelet Count 492 10^3/cmm (130-400); Red Blood Count 4.68 10^6/uL (4.1-5.3); Red Cell Distribution Width 13.3 % (12.1-15.1); White Blood Count 19.3 10^3/uL (4.0-10.0)
[2022-01-22] MEDS: iohexol 350 mg/mL 100 mL Btl IV (05:15)
[2022-01-22 05:19] LABS: Troponin(5th) Baseline 19 ng/L (0-15)
[2022-01-22 05:20] LABS: Lactate (Lactic Acid level) 2.1 mmol/L (0.5-2.2)
[2022-01-22 05:21] LABS: Alanine Aminotransferase 25 U/L (0-41); Albumin Level 3.2 g/dL (3.5-5.2); Alkaline Phosphatase 161 IU/L (40-130); Anion Gap 21.2 (5-19); Aspartate Amino Transferase 30 U/L (0-40); Blood Urea Nitrogen 46 mg/dL (8-23); C Reactive Protein 117.8 mg/L (0.0-4.9); Calcium 10.1 mg/dL (8.5-10.5); Carbon Dioxide 23 mmol/L (22-29); Chloride 93 mmol/L (98-107); Globulin 4.4 g/dL (1.3-4.6); Glomerular Filtration Rate 55.4 mL/min (90-130); Glucose 129 mg/dL (65-115); Osmolality Calculated 290 mOsm/kg (285-295); Potassium 4.2 mmol/L (3.5-5.1); Sodium 133 mmol/L (136-145); Total Bilirubin 0.3 mg/dL (0.15-1.2); Total Protein 7.6 g/dL (6.6-8.7)
[2022-01-22 05:24] LABS: D Dimer 7.11 ug/mIFEU (0-0.59)
[2022-01-22 05:28] LABS: Procalcitonin 0.31 ng/mL (0-0.5)
[2022-01-22 05:41] LABS: ABG PCO2 40.2 mmHg (35-45); ABG PH Result 7.39 (7.35-7.45); Base Excess ABG -0.9 mmol/L (-2.0-2.0); Blood Gas Allen Test Pos; Blood Gas Sample Site Radial, left; Blood Gas Sample Type Arterial; HCO3 ABG 24.1 mmol/L (22-26); Oxygen Device NC; PO2 ABG 63.6 mmHg (80.0-100.0)
--- NOTE | 2022-01-22 06:00 | W.ED.GENADLT ---
Documented by User: Mayur Henderson DO 01/22/22 19:07 HPI - General Adult General: Chief complaint: General Medical Stated complaint: weakness Time Seen by Provider: 01/22/22 04:22 History of Present Illness: 66-year-old gentleman who was diagnosed with throat cancer on 12/27. He recently had biopsies performed a couple of weeks ago. He does not know the results of these yet. He presents with multiple complaints including headache, shortness of breath, decreased appetite, weight loss, generalized weakness. He denies any fever. He has a chronic cough with sputum production, as he is a smoker. This has not changed significantly. Onset (ago): day(s) Radiation: non-radiation Severity: moderate Quality: other Pain Consistency: other Relieving factors: other Associated symptoms: Reports no associated symptoms, dyspnea and nausea; Deny chest pain, fevers/chills or vomiting Review of Systems Const: Denies: fever(s) ENMT: Reports: throat pain Card: Denies: chest pain Resp: Reports: dyspnea and productive cough GI: Reports: nausea; Denies: vomiting PFSH ED PFSH: Medical History COPD (chronic obstructive pulmonary disease) Hypertension Stroke Social History Smoking and tobacco status: current every day smoker Physical Exam Const: GENERAL APPEARANCE: cooperative and ill appearing (Mildly); not frail appearing HENMT: COMMON NORMALS: normocephalic, atraumatic and Normal external nose present HEAD & SCALP: normocephalic and atraumatic FACE & SINUS: normal facial exam NOSE: Normal external nose present Eye: COMMON NORMALS: Equal, round and reactive pupils present PUPIL: Yes Equal, round and reactive pupils present Chest: COMMONS NORMALS: normal inspection of the chest CHEST: Yes Symmetrical chest wall rise Resp: EFFORT & INSPECTION: Yes symmetric chest movement and Yes tachypneic AUSCULTATION: wheezes (intermittent) and diminished lung sounds Cardio: COMMON NORMALS: regular rate and regular rhythm RATE: regular rate RHYTHM: regular rhythm GI: COMMON NORMALS: Normal to inspection, nondistended, normoactive bowel sounds present, Soft to palpation and non-tender PALPATION: Yes Soft to palpation Neuro: HANSEL COMA SCALE: document GCS findings [place] coma scale eye opening: Spontaneous [place] coma scale verbal response: Orientated [place] coma scale motor response: Obey commands [place] coma scale total score: 15 Course Vital Signs: Vital signs: Vital Signs Temperature 98.6 F 01/22/22 04:10 Pulse Rate 84 01/22/22 09:37 Respiratory Rate 22 H 01/22/22 09:37 Blood Pressure 106/56 01/22/22 09:37 Pulse Oximetry 91 01/22/22 09:37 Oxygen Delivery Me thod 01/22/22 09:37 Oxygen Flow Rate 3 01/22/22 09:37 MDM - General Adult Medical Decision Making White blood cell count is 19.3. D-dimer is 7. Creatinine is 1.3 with a BUN of 46. CT of the head, and CTA of the chest are pending at this point. He will be checked out to Dr. Hernandez at shift change. Lab Data : 01/22/22 04:23 01/22/22 04:23 Radiology Impressions Chest CTA 01/22/22 04:44 IMPRESSION: Commonly reported imaging features of (COVID-19) pneumonia are present. Other processes such as influenza pneumonia and organizing pneumonia, as can be seen with drug toxicity and connective tissue disease, can cause a similar imaging pattern. Head CT 01/22/22 04:44 IMPRESSION: No acute intracranial abnormality. Please note that MRI is more sensitive for early changes of acute ischemia. Laboratory Results WBC 19.3 10^3/uL (4.0-10.0) H 01/22/22 04:23 RBC 4.68 10^6/uL (4.1-5.3) 01/22/22 04:23 Hgb 13.7 g/dL (11.7-16.6) 01/22/22 04:23 Hct 41.9 % (42.0-52.0) L 01/22/22 04:23 MCV 89.5 fl (80-94) 01/22/22 04:23 MCH 29.3 pg (28.0-34.0) 01/22/22 04:23 MCHC 32.7 g/dL (30.0-36.0) 01/22/22 04:23 RDW 13.3 % (12.1-15.1) 01/22/22 04:23 Plt Count 492 10^3/cmm (130-400) H 01/22/22 04:23 MPV 9.7 fL (7.4-10.4) 01/22/22 04:23 Neut % (Auto) 76.8 % 01/22/22 04:23 Lymph % (Auto) 14.2 % 01/22/22 04:23 [place] % (Auto) 6.8 % 01/22/22 04:23 Eos % (Auto) 1.1 % 01/22/22 04:23 Baso % (Auto) 0.3 % 01/22/22 04:23 Neut # (Auto) 14.83 10^3/uL (1.8-7.7) H 01/22/22 04:23 Lymph # (Auto) 2.8 10^3/uL (0.8-4.8) 01/22/22 04:23 [place] # (Auto) 1.3 10^3/uL (0.2-0.9) H 01/22/22 04:23 Eos # (Auto) 0.2 10^3/uL (0.0-0.8) 01/22/22 04:23 Baso # (Auto) 0.1 10^3/uL (0.0-0.1) 01/22/22 04:23 Nucleated RBC % (auto) 0 % 01/22/22 04:23 Nucleated RBCs # 0.0 /100WBC 01/22/22 04:23 D-Dimer 7.11 ug/mIFEU (0-0.59) H 01/22/22 04:23 Specimen Type Arterial 01/22/22 05:29 Sample Site Radial, left 01/22/22 05:29 ABG pH 7.39 (7.35-7.45) 01/22/22 05:29 ABG pCO2 40.2 mmHg (35-45) 01/22/22 05:29 ABG pO2 63.6 mmHg (80.0-100.0) L 01/22/22 05:29 ABG HCO3 24.1 mmol/L (22-26) 01/22/22 05:29 ABG Base Excess -0.9 mmol/L (-2.0-2.0) 01/22/22 05:29 Roge Test Pos 01/22/22 05:29 Hematocrit 37.0 % (42-52) L 01/22/22 05:29 O2 Delivery Device Nc 01/22/22 05:29 O2 Liters/Min 2.0 % 01/22/22 05:29 Criminal Psychologist ID Xiomara 01/22/22 05:29 Sodium 133 mmol/L (136-145) L 01/22/22 04:23 Potassium 4.2 mmol/L (3.5-5.1) 01/22/22 04:23 Chloride 93 mmol/L (98-107) L 01/22/22 04:23 Carbon Dioxide 23 mmol/L (22-29) 01/22/22 04:23 Anion Gap 21.2 (5-19) H 01/22/22 04:23 BUN 46 mg/dL (8-23) H 01/22/22 04:23 Creatinine 1.3 mg/dL (0.7-1.2) H 01/22/22 04:23 GFR Calculation 55.4 mL/min (90-130) L 01/22/22 04:23 Glucose 129 mg/dL (65-115) H 01/22/22 04:23 Calculated Osmolality 290 mOsm/kg (285-295) 01/22/22 04:23 Lactate 2.1 mmol/L (0.5-2.2) 01/22/22 04:23 Calcium 10.1 mg/dL (8.5-10.5) 01/22/22 04:23 Total Bilirubin 0.3 mg/dL (0.15-1.2) 01/22/22 04:23 AST 30 U/L (0-40) 01/22/22 04:23 ALT 25 U/L (0-41) 01/22/22 04:23 Alkaline Phosphatase 161 IU/L (40-130) H 01/22/22 04:23 Troponin T Baseline 19 ng/L (0-15) H 01/22/22 04:23 Troponin T 120 Minute 18.08 ng/L (0-15) H 01/22/22 06:34 Delta Troponin T -0.92 ABS# (0-10) L 01/22/22 06:34 C-Reactive Protein 117.8 mg/L (0.0-4.9) H 01/22/22 04:23 Total Protein 7.6 g/dL (6.6-8.7) 01/22/22 04:23 Albumin 3.2 g/dL (3.5-5.2) L 01/22/22 04:23 Globulin 4.4 g/dL (1.3-4.6) 01/22/22 04:23 Procalcitonin 0.31 ng/mL (0-0.5) 01/22/22 04:23 Urine Color Yellow (Yellow) 01/22/22 07:58 Urine Appearance Sl hazy (CLEAR) 01/22/22 07:58 Urine pH 5 (5-7) 01/22/22 07:58 Ur Specific [place] 1.005 (1.005-1.030) 01/22/22 07:58 Urine Protein Neg (Negative) 01/22/22 07:58 Urine Glucose (UA) Norm (Normal) 01/22/22 07:58 Urine Ketones 1+ (Negative) H 01/22/22 07:58 Urine Blood 3+ (Negative) H 01/22/22 07:58 Urine Nitrate Negative (Negative) 01/22/22 07:58 Urine Bilirubin Neg (Negative) 01/22/22 07:58 Urine Urobilinogen 1 mg/dL (Negative) H 01/22/22 07:58 Ur Leukocyte Esterase Negative (Negative) 01/22/22 07:58 Urine RBC 40-50 /hpf (0-2) H 01/22/22 07:58 Urine WBC 0-4 /hpf (0-5) H 01/22/22 07:58 Ur Squamous Epith Cells 0-4 /hpf (0-5) H 01/22/22 07:58 Ur Transition Epith Cell 0-4 /hpf 01/22/22 07:58 Amorphous Sediment Not Reportable 01/22/22 07:58 Urine Bacteria Trace /hpf (NONE) 01/22/22 07:58 Coarse Granular Casts 0-4 /lpf H 01/22/22 07:58 Other Casts Waxy /lpf 01/22/22 07:58 Urine Mucus Trace /hpf 01/22/22 07:58 SARS-CoV-2 Ag (Rapid) Negative (Negative) 01/22/22 08:30 Discharge Plan Discharge Patient Disposition: Home Clinical Impression: Left lower lobe pneumonia Condition: Stable Prescriptions: New azithromycin 250 mg tablet 250 mg PO DAILY 4 Days Qty: 4 0RF Rx Instructions: start on 01/23/22 lidocaine HCl 4 % (40 mg/mL) solution 2.5 ml mucous membrane Q6H PRN (Reason: pain) Qty: 50 0RF Rx Instructions: Swish, gargle and spit cefpodoxime 200 mg tablet 200 mg PO BID Qty: 14 0RF Rx Instructions: must administer with a meal/food No Action Medrol (Mathieu) 4 mg tablets,dose pack See Rx Instructions .ROUTE .COMPLEX Qty: 21 0RF Rx Instructions: orally per package directions albuterol sulfate 90 mcg/actuation HFA aerosol inhaler 2 inh INHALATION Q4H PRN (Reason: shortness of breath or wheezing) Qty: 18 0RF Discharge Orders: Discharge ED (Routine); Ordered 01/22/22 Ordered By: Shen Hernandez Referrals: Felton Edgar [Primary Care Provider] - Discharge Diet: Advance as tolerated Discharge Activity: Increase activity as tolerated Patient Instructions: Pneumonia (ED), Opioid Safety Activity Restrictions/Additional Instructions: Please wear your home oxygen at 2 to 3 L as needed Please follow-up with your primary care provider in 2 to 3 days for recheck Sign Out Sign Out Data: Patient Sign Out occurred on 01/22/22 at 06:40. Patient's care was discussed, and care was transferred from to Shen Hernandez DO. Coding Level of Care Code ED Concrete Bucket Loader for Chg Fwd Exam Expanded Problem Focused Documented by User: Shen Hernandez DO 01/22/22 10:14 HPI - General Adult General: Chief complaint: General Medical Stated complaint: weakness Time Seen by Provider: 01/22/22 04:22 [facility] ED PFSH: Medical History COPD (chronic obstructive pulmonary disease) Hypertension Stroke Social History Smoking and tobacco status: current every day smoker Course Vital Signs: Vital signs: Vital Signs Temperature 98.6 F 01/22/22 04:10 Pulse Rate 84 01/22/22 09:37 Respiratory Rate 22 H 01/22/22 09:37 Blood Pressure 106/56 01/22/22 09:37 Pulse Oximetry 91 01/22/22 09:37 Oxygen Delivery Me thod 01/22/22 09:37 Oxygen Flow Rate 3 01/22/22 09:37 MDM - General Adult Medical Decision Making White blood cell count is 19.3. D-dimer is 7. Creatinine is 1.3 with a BUN of 46. CT of the head, and CTA of the chest are pending at this point. He will be checked out to Dr. Hernandez at shift change. [id number] patient was recommended admission for pneumonia. However patient reports that he has oxygen at home and would prefer just to go home and be treated on outpatient basis. I will give him cefpodoxime and azithromycin for the pneumonia. He would also like something for throat discomfort and will give him a lidocaine swish and spit oral rinse. Patient had some abnormal low blood pressure readings however these were likely cuff issues since he had a very strong bounding pulses no mentation changes. I did give him an additional liter fluids since he went to be DC'd. Patient remained stable throughout the stay. He should follow-up with a primary care provider as needed. I instructed him to use his oxygen at 2 to 3 L at home. Patient stable upon discharge Lab Data : 01/22/22 04:23 01/22/22 04:23 Radiology Impressions Chest CTA 01/22/22 04:44 IMPRESSION: Commonly reported imaging features of (COVID-19) pneumonia are present. Other processes such as influenza pneumonia and organizing pneumonia, as can be seen with drug toxicity and connective tissue disease, can cause a similar imaging pattern. Head CT 01/22/22 04:44 IMPRESSION: No acute intracranial abnormality. Please note that MRI is more sensitive for early changes of acute ischemia. Laboratory Results WBC 19.3 10^3/uL (4.0-10.0) H 01/22/22 04:23 RBC 4.68 10^6/uL (4.1-5.3) 01/22/22 04:23 Hgb 13.7 g/dL (11.7-16.6) 01/22/22 04:23 Hct 41.9 % (42.0-52.0) L 01/22/22 04:23 MCV 89.5 fl (80-94) 01/22/22 04:23 MCH 29.3 pg (28.0-34.0) 01/22/22 04:23 MCHC 32.7 g/dL (30.0-36.0) 01/22/22 04:23 RDW 13.3 % (12.1-15.1) 01/22/22 04:23 Plt Count 492 10^3/cmm (130-400) H 01/22/22 04:23 MPV 9.7 fL (7.4-10.4) 01/22/22 04:23 Neut % (Auto) 76.8 % 01/22/22 04:23 Lymph % (Auto) 14.2 % 01/22/22 04:23 [place] % (Auto) 6.8 % 01/22/22 04:23 Eos % (Auto) 1.1 % 01/22/22 04:23 Baso % (Auto) 0.3 % 01/22/22 04:23 Neut # (Auto) 14.83 10^3/uL (1.8-7.7) H 01/22/22 04:23 Lymph # (Auto) 2.8 10^3/uL (0.8-4.8) 01/22/22 04:23 [place] # (Auto) 1.3 10^3/uL (0.2-0.9) H 01/22/22 04:23 Eos # (Auto) 0.2 10^3/uL (0.0-0.8) 01/22/22 04:23 Baso # (Auto) 0.1 10^3/uL (0.0-0.1) 01/22/22 04:23 Nucleated RBC % (auto) 0 % 01/22/22 04:23 Nucleated RBCs # 0.0 /100WBC 01/22/22 04:23 D-Dimer 7.11 ug/mIFEU (0-0.59) H 01/22/22 04:23 Specimen Type Arterial 01/22/22 05:29 Sample Site Radial, left 01/22/22 05:29 ABG pH 7.39 (7.35-7.45) 01/22/22 05:29 ABG pCO2 40.2 mmHg (35-45) 01/22/22 05:29 ABG pO2 63.6 mmHg (80.0-100.0) L 01/22/22 05:29 ABG HCO3 24.1 mmol/L (22-26) 01/22/22 05:29 ABG Base Excess -0.9 mmol/L (-2.0-2.0) 01/22/22 05:29 Roge Test Pos 01/22/22 05:29 Hematocrit 37.0 % (42-52) L 01/22/22 05:29 O2 Delivery Device Nc 01/22/22 05:29 O2 Liters/Min 2.0 % 01/22/22 05:29 Criminal Psychologist ID Hensa 01/22/22 05:29 Sodium 133 mmol/L (136-145) L 01/22/22 04:23 Potassium 4.2 mmol/L (3.5-5.1) 01/22/22 04:23 Chloride 93 mmol/L (98-107) L 01/22/22 04:23 Carbon Dioxide 23 mmol/L (22-29) 01/22/22 04:23 Anion Gap 21.2 (5-19) H 01/22/22 04:23 BUN 46 mg/dL (8-23) H 01/22/22 04:23 Creatinine 1.3 mg/dL (0.7-1.2) H 01/22/22 04:23 GFR Calculation 55.4 mL/min (90-130) L 01/22/22 04:23 Glucose 129 mg/dL (65-115) H 01/22/22 04:23 Calculated Osmolality 290 mOsm/kg (285-295) 01/22/22 04:23 Lactate 2.1 mmol/L (0.5-2.2) 01/22/22 04:23 Calcium 10.1 mg/dL (8.5-10.5) 01/22/22 04:23 Total Bilirubin 0.3 mg/dL (0.15-1.2) 01/22/22 04:23 AST 30 U/L (0-40) 01/22/22 04:23 ALT 25 U/L (0-41) 01/22/22 04:23 Alkaline Phosphatase 161 IU/L (40-130) H 01/22/22 04:23 Troponin T Baseline 19 ng/L (0-15) H 01/22/22 04:23 Troponin T 120 Minute 18.08 ng/L (0-15) H 01/22/22 06:34 Delta Troponin T -0.92 ABS# (0-10) L 01/22/22 06:34 C-Reactive Protein 117.8 mg/L (0.0-4.9) H 01/22/22 04:23 Total Protein 7.6 g/dL (6.6-8.7) 01/22/22 04:23 Albumin 3.2 g/dL (3.5-5.2) L 01/22/22 04:23 Globulin 4.4 g/dL (1.3-4.6) 01/22/22 04:23 Procalcitonin 0.31 ng/mL (0-0.5) 01/22/22 04:23 Urine Color Yellow (Yellow) 01/22/22 07:58 Urine Appearance Sl hazy (CLEAR) 01/22/22 07:58 Urine pH 5 (5-7) 01/22/22 07:58 Ur Specific [place] 1.005 (1.005-1.030) 01/22/22 07:58 Urine Protein Neg (Negative) 01/22/22 07:58 Urine Glucose (UA) Norm (Normal) 01/22/22 07:58 Urine Ketones 1+ (Negative) H 01/22/22 07:58 Urine Blood 3+ (Negative) H 01/22/22 07:58 Urine Nitrate Negative (Negative) 01/22/22 07:58 Urine Bilirubin Neg (Negative) 01/22/22 07:58 Urine Urobilinogen 1 mg/dL (Negative) H 01/22/22 07:58 Ur Leukocyte Esterase Negative (Negative) 01/22/22 07:58 Urine RBC 40-50 /hpf (0-2) H 01/22/22 07:58 Urine WBC 0-4 /hpf (0-5) H 01/22/22 07:58 Ur Squamous Epith Cells 0-4 /hpf (0-5) H 01/22/22 07:58 Ur Transition Epith Cell 0-4 /hpf 01/22/22 07:58 Amorphous Sediment Not Reportable 01/22/22 07:58 Urine Bacteria Trace /hpf (NONE) 01/22/22 07:58 Coarse Granular Casts 0-4 /lpf H 01/22/22 07:58 Other Casts Waxy /lpf 01/22/22 07:58 Urine Mucus Trace /hpf 01/22/22 07:58 SARS-CoV-2 Ag (Rapid) Negative (Negative) 01/22/22 08:30 Discharge Plan Discharge Patient Disposition: Home Clinical Impression: Left lower lobe pneumonia Condition: Stable Prescriptions: New azithromycin 250 mg tablet 250 mg PO DAILY 4 Days Qty: 4 0RF Rx Instructions: start on 01/23/22 lidocaine HCl 4 % (40 mg/mL) solution 2.5 ml mucous membrane Q6H PRN (Reason: pain) Qty: 50 0RF Rx Instructions: Swish, gargle and spit cefpodoxime 200 mg tablet 200 mg PO BID Qty: 14 0RF Rx Instructions: must administer with a meal/food No Action Medrol (Mathieu) 4 mg tablets,dose pack See Rx Instructions .ROUTE .COMPLEX Qty: 21 0RF Rx Instructions: orally per package directions albuterol sulfate 90 mcg/actuation HFA aerosol inhaler 2 inh INHALATION Q4H PRN (Reason: shortness of breath or wheezing) Qty: 18 0RF Discharge Orders: Discharge ED (Routine); Ordered 01/22/22 Ordered By: Shen Hernandez Referrals: Felton Edgar [Primary Care Provider] - Discharge Diet: Advance as tolerated Discharge Activity: Increase activity as tolerated Patient Instructions: Pneumonia (ED), Opioid Safety Activity Restrictions/Additional Instructions: Please wear your home oxygen at 2 to 3 L as needed Please follow-up with your primary care provider in 2 to 3 days for recheck Sign Out Sign Out Data: Patient Sign Out occurred on 01/22/22 at 06:40. Patient's care was discussed, and care was transferred from to Shen Hernandez DO. Coding Level of Care Code ED Concrete Bucket Loader for Chg Fwd Exam Expanded Problem Focused
--- NOTE | 2022-01-22 06:36 | ECG_ITS ---
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 Measurements Intervals [place] Rate: 99 P: 38 [place]: 173 QRS: -59 QRSD: 100 T: 44 QT: 335 QTc: 432 Interpretive Statements SINUS RHYTHM LEFT AXIS DEVIATION [QRS AXIS < -30] ANTERIOR MYOCARDIAL INFARCTION , OF INDETERMINATE AGE [40+ ms Q WAVE AND/OR ST/T ABNORMALITY IN V3/V4] INFERIOR MYOCARDIAL INFARCTION , OF INDETERMINATE AGE [40+ ms Q WAVE AND/OR ST/T ABNORMALITY IN II/aVF] Compared to ECG 01/22/2022 04:16:59 Left-axis deviation now present Sinus tachycardia no longer present Atrial abnormality no longer present Myocardial infarct finding still present Electronically Signed On 01-22-2022 10:39:29 CDT by Matthias Banerjee M.D. [email or web address]
[2022-01-22 07:05] LABS: Troponin 5 2HR 18.08 ng/L (0-15)
[2022-01-22 07:15] LABS: Troponin 5 2HR Delta -0.92 ABS# (0-10)
[2022-01-22] MEDS: cefTRIAXone 1,000 MG in sodium chloride 0.9% (plus) 50 ML 100 MG IV (07:43)
[2022-01-22] MEDS: azithromycin 500 MG in sodium chloride 0.9% 250 ML 250 MG IV (07:46)
[2022-01-22] MEDS: ipratropium-albuterol 3 mL Neb INHALATION (07:53)
[2022-01-22 08:20] LABS: Glucose Urine UA Norm (Normal); Protein Urine Neg (Negative); Specific Gravity, Urine 1.005 (1.005-1.030); Urine Appearance SL Hazy (CLEAR); Urine Color Yellow (Yellow); pH Urine 5 (5-7)
[2022-01-22 08:21] LABS: Add Urine Microscopic? YES; Bilirubin Urine Neg (Negative); Blood Urine 3+ (Negative); Ketones Urine 1+ (Negative); Leukocyte Esterase Urine Negative (Negative); Nitrate Urine Negative (Negative); Urobilinogen Urine 1 mg/dL (Negative)
[2022-01-22 08:39] LABS: RBC Urine 40-50 /hpf (0-2); WBC Urine 0-4 /hpf (0-5)
[2022-01-22 08:40] LABS: Add Urine Culture? Yes; Bacteria Urine TRACE /hpf; Coarse Granular Casts Urine 0-4 /lpf; Mucus Urine TRACE /hpf; Other Casts Urine WAXY /lpf; Squamous Epithelial Cell Urine 0-4 /hpf (0-5); Transitional Epi Cells Urine 0-4 /hpf
--- NOTE | 2022-01-22 09:08 | PC.NURSE ---
NOTIFIED DR. SKY OF VS OF HR OF 87BPM AND BP OF 75/53 HE VERBALIZED HE WOULD PUT ORDERS IN.
[2022-01-22 09:14] LABS: SARS Covid-2 Antigen Negative (Negative)
--- NOTE | 2022-01-22 09:40 | PC.NURSE ---
DR. SKY VERBALIZED AFTER ASSESSING PT AND EVALUATING MOST CURRENT VS THAT PT CAN BE DC'D AFTER FLUIDS.
--- NOTE | 2022-01-22 10:05 | PC.NURSE ---
APPROX 300 ML OF FLUID REMAIN PT STATES THAT THEY WOULD LIKE TO LEAVE. DR. SKY NOTIFIED VERBALIZED UNDERSTANDING AND VO TO CONTINUE WITH DC.
== END 2022-01-22 10:23 | disposition home or self-care (01) ==
PROVIDERS: Emergency Medicine; Emergency Provider Student in an Organized Health Care Education/Training Program; PCP Internal Medicine
DX: J18.1 Lobar pneumonia, unspecified organism (principal); J44.9 Chronic obstructive pulmonary disease, unspecified; I10 Essential (primary) hypertension; Z86.73 Personal history of transient ischemic attack (TIA), and cerebral infarction without residual deficits
CPT/HCPCS: 36415; 36600; 70450; 71275; 80053; 81001; 82803; 83605; 84145; 84484; 85025; 85378; 86140; 87040; 87086; 87426; 93005; 94640; 96365; 96367; 99285; J0456; J0696; J7030; J7050; Q9967

== ENCOUNTER 2022-01-25 08:56 | Inpatient (IN) | payer OTHER, MEDICARE, MEDICAID, SELFPAY ==
[2022-01-25] VITALS (13 sets, daily range): BP systolic 123–130; BP diastolic 73–82; PULSE 76–93; RESP 13–22; TEMP 36.2–36.5; O2SAT 86–98; BMI 33.3
--- NOTE | 2022-01-25 09:12 | ED_ITS ---
HPI - Neuro Symptoms/Deficit General: Chief Complaint: Neuro Symptoms/Deficit Stated Complaint: facial weakness, numbness to left arm Time Seen by Provider: 01/25/22 09:12 History of Present Illness: Mr. Siegel is a 66-year-old gentleman with history of stroke on Eliquis, hypertension, COPD, recent diagnosis of pneumonia who presents to the emergency department due to generalized symptoms. He reports approximately 4 days ago having gradual onset generalized malaise. He describes weakness and loss of coordination in his left arm specifically his hand losing dexterity as well as an off-balance feeling. Additionally he reports visual disturbance/hallucinations with things changing positions and believing that there are people in his yard though he does acknowledge that he knows that they are not there. Overall course of symptoms has worsened. Intensity is moderate. No other specific changes in health, exacerbating, or alleviating factors identified. Onset (ago): day(s) Location: left arm, ataxia and altered Severity: moderate Context: gradual onset On Anticoagulants: Yes Associated symptoms: Reports malaise Review of Systems General: Reports: 10 or more systems reviewed and unremarkable except in HPI and below Const: Reports: malaise [facility] ED PFSH: Medical History (Updated 01/30/22 @ 11:33 by John Justice MD) Acute exacerbation of chronic obstructive pulmonary disease COPD (chronic obstructive pulmonary disease) Coronary artery disease Diabetes mellitus Hyperlipidemia Hypertension Squamous cell carcinoma of right tonsil Stroke Throat cancer Surgical History (Updated 01/30/22 @ 08:12 by Nila Wright LPN) History of surgery on arm History of surgery on lower extremity Family History (Updated 01/30/22 @ 08:11 by Nila Wright LPN) Mother Cancer lung Father Stroke Sister Cancer lung Other Bleeding disorder Clotting disorder Diabetes Hyperlipidemia Denies family history of CAD (coronary artery disease) Dementia Psychiatric illness Chronic kidney disease (CKD) Suicide Anesthesia complication Lung disease Hypertension Social History (Updated 01/30/22 @ 08:08 by Nila Wright LPN) Smoking and tobacco status: current every day smoker (1.5 ppd) cigarettes Packs smoked per day: 1.5 Alcohol intake: current Alcohol intake frequency: holidays/special occasions only Physical Exam Const: COMMON NORMALS: patient oriented x3 and alert GENERAL APPEARANCE: cooperative and well developed HENMT: COMMON NORMALS: normocephalic and atraumatic HEAD & SCALP: normocephalic and atraumatic THROAT: posterior oropharynx normal Eye: COMMON NORMALS: conjunctivae normal CONJUNCTIVA: Yes conjunctivae normal SCLERA: sclerae normal Neck/C-Spine: COMMON NORMALS: supple GENERAL: Yes trachea midline Resp: COMMON NORMALS: normal respiratory effort and clear to auscultation bilaterally EFFORT & INSPECTION: Yes able to speak in complete sentences AUSCULTATION: clear to auscultation bilaterally Cardio: COMMON NORMALS: regular rate and regular rhythm RATE: regular rate RHYTHM: regular rhythm GI: COMMON NORMALS: Soft to palpation PALPATION: Yes Soft to palpation and No Tenderness to palpation present (GI) PERCUSSION: normal to percussion Extremity: GENERAL: Yes normal exam except as noted and No edema Neuro: COMMON NORMALS: patient oriented x3, CN's II-XII intact bilaterally, m oves all extremities, no focal motor deficits and no sensory deficits noted SENSORIUM/ORIENTATION: Yes alert and No Orientation impaired Psych: COMMON NORMALS: mental status grossly normal and Normal thought process present THOUGHT PROCESS: Normal thought process present Course ED course: - Patient was seen and evaluated by me at bedside - Patient placed on cardiac monitors, IV access obtained - Initial evaluation notable for exam as above. No focal neurodeficits. - Labs and xrays personally interpreted by me. EKG notable for sinus rhythm with nonspecific ST segment abnormalities. No STEMI. - RT treatment ordered - Labs notable for leukocytosis, normal hemoglobin. Metabolic panel with no acute electrolyte arrangement to explain symptoms. Initial lactate elevated. Urinalysis with RBCs. - Imaging notable for questionable infiltrate on chest x-ray, no pneumothorax. Head CT without acute pathology to explain symptoms. -Antibiotics ordered - Upon serial reexamination after treatment the patient was similar - Based on patient history, evaluation, and testing as interpreted the most likely cause of the patient's condition is pneumonia with neurologic symptoms of unclear etiology - The results of ED evaluation were discussed with the patient including plan for admission due to requirement for level of care not available if discharged to prevent significant worsening/deterioration. - Admitting service was contacted and Dr Weinberg with the hospitalist service agreed to admit the patient - Patient was admitted without further deterioration or significant events. Note: Click bubbles or prepopulated matson in note writing are used for assistance with data collection and billing and are inherently more limited than narrative and other text portions of this note. Please use narrative for additional clinical history and defer to narrative/free test for any case of contradictory information. If information appears in only free text or click bubble it should be considered present or absent as reported. Please contact note remote mortgage underwriter for clarifications of clinical information or contradictory information. MDM is a brief summary, contradictory or erroneous seeming information should be clarified and full note should be reviewed. Vital Signs: Vital signs: Vital Signs Temperature 97.4 F L 01/26/22 12:00 Pulse Rate 96 01/26/22 12:00 Respiratory Rate 18 01/26/22 12:00 Blood Pressure 125/78 01/26/22 12:00 Pulse Oximetry 92 01/26/22 12:00 Oxygen Delivery Me thod 01/26/22 12:00 Oxygen Flow Rate 2 01/26/22 09:50 MDM - Neuro Symptoms/Deficit Medical Decision Making 66-year-old gentleman with complex past medical history including recently diagnosed oropharyngeal cancer presenting with abnormal neurologic symptoms and hallucinations. Patient likely has pneumonia which may contribute to symptoms. Antibiotics given and patient admitted for further evaluation. Medical Records I reviewed the patient's medical records. Lab Data I reviewed the patient's lab results. : 01/26/22 04:45 01/26/22 04:45 Radiology Impressions Chest X-Ray 01/25/22 09:34 IMPRESSION: Minimal ground-glass density in the lung bases more prominent on the left versus the right may be consistent with mild airspace disease versus atelectasis or scarring. Head CT 01/25/22 09:34 IMPRESSION: 1. No evidence of intracranial hemorrhage or mass effect. 2. Mild small vessel changes. Moderate parenchymal volume loss. 3. No acute intracranial findings. Abdomen/Pelvis CT 01/25/22 14:31 IMPRESSION: 1. No evidence of urinary calculus or obstructive uropathy. 2. Mildly prominent prostate which indents the urinary bladder base. 3. Colonic diverticulosis without CT evidence of diverticulitis. 4. Atherosclerotic vascular disease including coronary artery disease. Head/Neck CTA 01/25/22 15:24 IMPRESSION: 1. No evidence of significant intracranial vascular disease or acute vessel occlusion. 2. Mild atrophy and chronic/remote ischemic changes without evidence of superimposed acute infarct, hemorrhage or mass-effect at this time. IMPRESSION: 1. Calcific plaque along the right carotid bifurcation and carotid bulb with mild less than 30% proximal right ICA stenosis with respect to the distal ICA lumen. 2. Calcific plaque along the left carotid bifurcation and carotid bulb with mild less than 50% proximal left ICA stenosis with respect to the distal ICA lumen. 3. Lobulated infiltrating necrotic pharyngeal/tonsillar mass right greater than left. Findings are highly suspicious for infiltrating neoplasm. 4. Mild cervical lymphadenopathy right greater than left. 5. Upper lung zone and biapical emphysema. REFERENCES: NASCET CRITERIA. The degree of internal carotid artery stenosis is based on NASCET criteria. Normal is no stenosis. Mild is less than 50% stenosis. Moderate is 50-69% stenosis. Severe is 70% to 99% stenosis. Total occlusion is no detectable patent lumen. ADDENDUM: 01/26/227 THIS REPORT CONTAINS FINDINGS THAT MAY BE CRITICAL TO PATIENT CARE. The findings were verbally communicated via telephone conference with IRISH Landon at 2:14 AM CDT on 01/26/2022. The findings were acknowledged and understood. Laboratory Results WBC 14.7 10^3/uL (4.0-10.0) H 01/25/22 09:51 RBC 4.05 10^6/uL (4.1-5.3) L 01/25/22 09:51 Hgb 11.7 g/dL (11.7-16.6) 01/25/22 09:51 Hct 36.5 % (42.0-52.0) L 01/25/22 09:51 MCV 90.1 fl (80-94) 01/25/22 09:51 MCH 28.9 pg (28.0-34.0) 01/25/22 09:51 MCHC 32.1 g/dL (30.0-36.0) 01/25/22 09:51 RDW 13.2 % (12.1-15.1) 01/25/22 09:51 Plt Count 480 10^3/cmm (130-400) H 01/25/22 09:51 MPV 9.5 fL (7.4-10.4) 01/25/22 09:51 Neut % (Auto) 72.6 % 01/25/22 09:51 Lymph % (Auto) 19.1 % 01/25/22 09:51 [place] % (Auto) 4.3 % 01/25/22 09:51 Eos % (Auto) 2.5 % 01/25/22 09:51 Baso % (Auto) 0.5 % 01/25/22 09:51 Neut # (Auto) 10.67 10^3/uL (1.8-7.7) H 01/25/22 09:51 Lymph # (Auto) 2.8 10^3/uL (0.8-4.8) 01/25/22 09:51 [place] # (Auto) 0.6 10^3/uL (0.2-0.9) 01/25/22 09:51 Eos # (Auto) 0.4 10^3/uL (0.0-0.8) 01/25/22 09:51 Baso # (Auto) 0.1 10^3/uL (0.0-0.1) 01/25/22 09:51 Nucleated RBC % (auto) 0 % 01/25/22 09:51 Nucleated RBCs # 0.0 /100WBC 01/25/22 09:51 Sodium 140 mmol/L (136-145) 01/25/22 09:51 Potassium 3.8 mmol/L (3.5-5.1) 01/25/22 09:51 Chloride 101 mmol/L (98-107) 01/25/22 09:51 Carbon Dioxide 25 mmol/L (22-29) 01/25/22 09:51 Anion Gap 17.8 (5-19) 01/25/22 09:51 BUN 16 mg/dL (8-23) 01/25/22 09:51 Creatinine 0.7 mg/dL (0.7-1.2) 01/25/22 09:51 GFR Calculation 113.2 mL/min (90-130) 01/25/22 09:51 Glucose 132 mg/dL (65-115) H 01/25/22 09:51 Calculated Osmolality 293 mOsm/kg (285-295) 01/25/22 09:51 Lactate 2.5 mmol/L (0.5-2.2) H 01/25/22 09:51 Calcium 9.6 mg/dL (8.5-10.5) 01/25/22 09:51 Magnesium 1.6 mg/dL (1.7-2.3) L 01/25/22 11:50 Total Bilirubin 0.2 mg/dL (0.15-1.2) 01/25/22 09:51 AST 24 U/L (0-40) 01/25/22 09:51 ALT 31 U/L (0-41) 01/25/22 09:51 Alkaline Phosphatase 132 IU/L (40-130) H 01/25/22 09:51 Troponin T Baseline 13 ng/L (0-15) 01/25/22 09:51 Troponin T 120 Minute 11.65 ng/L (0-15) 01/25/22 11:50 Delta Troponin T 0.92 ABS# (0-10) 01/25/22 11:50 C-Reactive Protein 27.8 mg/L (0.0-4.9) H 01/25/22 09:51 NT-Pro-B Natriuret Pep 122 pg/mL (0-125) 01/25/22 09:51 Total Protein 6.6 g/dL (6.6-8.7) 01/25/22 09:51 Albumin 3.2 g/dL (3.5-5.2) L 01/25/22 09:51 Globulin 3.4 g/dL (1.3-4.6) 01/25/22 09:51 Procalcitonin 0.13 ng/mL (0-0.5) 01/25/22 09:51 TSH 0.77 uIU/mL (0.27-4.20) 01/25/22 09:51 Urine Color Red (Yellow) 01/25/22 12:30 Urine Appearance Cloudy (CLEAR) 01/25/22 12:30 Urine pH 5 (5-7) 01/25/22 12:30 Ur Specific Hasty 1.020 (1.005-1.030) 01/25/22 12:30 Urine Protein 2+ (Negative) H 01/25/22 12:30 Urine Glucose (UA) Norm (Normal) 01/25/22 12:30 Urine Ketones Negative (Negative) 01/25/22 12:30 Urine Blood 3+ (Negative) H 01/25/22 12:30 Urine Nitrate Negative (Negative) 01/25/22 12:30 Urine Bilirubin 1+ (Negative) H 01/25/22 12:30 Urine Urobilinogen 1 mg/dL (Negative) H 01/25/22 12:30 Ur Leukocyte Esterase Trace (Negative) H 01/25/22 12:30 Urine RBC Too numerous to cnt /hpf (0-2) H 01/25/22 12:30 Urine WBC 10-15 /hpf (0-5) H 01/25/22 12:30 Ur Squamous Epith Cells 0-4 /hpf (0-5) H 01/25/22 12:30 Amorphous Sediment Not Reportable 01/25/22 12:30 Urine Bacteria 1+ /hpf (NONE) H 01/25/22 12:30 Fine Granular Casts 0-4 /lpf H 01/25/22 12:30 Urine Mucus Trace /hpf 01/25/22 12:30 Discharge Plan Discharge Patient Disposition: Admitted As Inpatient Admit Provider: Rodolfo Weinberg Clinical Impression: Pneumonia, Hypoxia, Acute exacerbation of chronic obstructive pulmonary disease, Hallucinations Condition: Stable Coding Level of Care Code ED Quality Control Inspector Heading for Chg Fwd Exam Comprehensive
--- NOTE | 2022-01-25 09:34 | CT_ITS ---
WS: [id number] CT HEAD TECHNIQUE: Noncontrast CT of the head obtained from the skullbase to the vertex. CLINICAL INFORMATION: LUE weakness, stroke like symptoms COMPARISON: CT January 22, 2022 DLP: 1052.[address] scans at [facility] use at least one of these dose optimization techniques: automated e xposure control; mA and/or kV adjustment per patient size (includes targeted exams where dose is matc hed to clinical indication); or iterative reconstruction. FINDINGS: No evidence of intracranial hemorrhage or mass effect. Ventricular system and basal cisterns are adrian nt. Mild small vessel changes with moderate parenchymal volume loss. Chronic lacunar infarcts LEFT co haresh radiata and LEFT thalamus. Intracranial vascular calcification. No extra-axial fluid collections . No evidence of mass or mass effect. Paranasal sinuses and mastoid air cells are well aerated. .Normal visualized soft tissues. CT/CT head wo con* [id number] IMPRESSION: 1. No evidence of intracranial hemorrhage or mass effect. 2. Mild small vessel changes. Moderate parenchymal volume loss. 3. No acute intracranial findings.
--- NOTE | 2022-01-25 09:34 | XRR_ITS ---
PROCEDURE INFORMATION: Exam: XR Chest Exam date and time: 01/25/2022 10:01 AM Age: 66 years old Clinical indication: Other: AMS; Patient HX: Facial weakness, numbness to left arm TECHNIQUE: Imaging protocol: Radiologic exam of the chest. Views: 1 view. COMPARISON: CT angio chest PE protcl [id number] 01/22/2022 6:16 AM FINDINGS: Lungs: Low left-sided lung volume compared to the right similar to prior exam. Minimal ground-glass density in the lung bases more prominent on the left versus the right. Pleural spaces: No pneumothorax. No pleural effusion. Heart/Mediastinum: The cardiomediastinal silhouette is within normal limits. Bones/joints: Unremarkable. XR/XR chest 1V portable [id number] IMPRESSION: Minimal ground-glass density in the lung bases more prominent on the left versus the right may be consistent with mild airspace disease versus atelectasis or scarring.
--- NOTE | 2022-01-25 09:35 | ECG_ITS ---
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 Measurements Intervals [place] Rate: 80 P: 29 [place]: 169 QRS: 44 QRSD: 100 T: 20 QT: 366 QTc: 422 Interpretive Statements SINUS RHYTHM INDETERMINATE AXIS ANTERIOR MYOCARDIAL INFARCTION , OF INDETERMINATE AGE [40+ ms Q WAVE AND/OR ST/T ABNORMALITY IN V3/V4] INFERIOR MYOCARDIAL INFARCTION , PROBABLY OLD [40+ ms Q WAVE AND/OR ST/T ABNORMALITY IN II/aVF] Compared to ECG 01/22/2022 06:36:10 Indeterminate axis now present Left-axis deviation no longer present Myocardial infarct finding still present Electronically Signed On 01-25-2022 19:39:28 CDT by Amanda Salomon M.D. [id number]
[2022-01-25 10:10] LABS: Basophils # 0.1 10^3/uL (0.0-0.1); Basophils % 0.5 %; Eosinophils # 0.4 10^3/uL (0.0-0.8); Eosinophils % 2.5 %; Hematocrit 36.5 % (42.0-52.0); Hemoglobin 11.7 g/dL (11.7-16.6); Lymphocytes # 2.8 10^3/uL (0.8-4.8); Lymphocytes % 19.1 %; Mean Corpuscular HGB Conc 32.1 g/dL (30.0-36.0); Mean Corpuscular Hemoglobin 28.9 pg (28.0-34.0); Mean Corpuscular Volume 90.1 fl (80-94); Mean Platelet Volume 9.5 fL (7.4-10.4); Monocytes # 0.6 10^3/uL (0.2-0.9); Monocytes % 4.3 %; Neutrophils # 10.67 10^3/uL (1.8-7.7); Neutrophils % 72.6 %; Nucleated Red Blood Cells % 0 %; Platelet Count 480 10^3/cmm (130-400); Red Blood Count 4.05 10^6/uL (4.1-5.3); Red Cell Distribution Width 13.2 % (12.1-15.1); White Blood Count 14.7 10^3/uL (4.0-10.0)
[2022-01-25 10:19] LABS: Lactate (Lactic Acid level) 2.5 mmol/L (0.5-2.2)
[2022-01-25 10:33] LABS: Troponin(5th) Baseline 13 ng/L (0-15)
[2022-01-25 10:46] LABS: Alanine Aminotransferase 31 U/L (0-41); Albumin Level 3.2 g/dL (3.5-5.2); Alkaline Phosphatase 132 IU/L (40-130); Anion Gap 17.8 (5-19); Aspartate Amino Transferase 24 U/L (0-40); Blood Urea Nitrogen 16 mg/dL (8-23); C Reactive Protein 27.8 mg/L (0.0-4.9); Calcium 9.6 mg/dL (8.5-10.5); Carbon Dioxide 25 mmol/L (22-29); Chloride 101 mmol/L (98-107); Globulin 3.4 g/dL (1.3-4.6); Glomerular Filtration Rate 113.2 mL/min (90-130); Glucose 132 mg/dL (65-115); NT Pro B Type Natriuretic Pept 122 pg/mL (0-125); Osmolality Calculated 293 mOsm/kg (285-295); Potassium 3.8 mmol/L (3.5-5.1); Procalcitonin 0.13 ng/mL (0-0.5); Sodium 140 mmol/L (136-145); Thyroid Stimulating Hormone 0.77 uIU/mL (0.27-4.20); Total Bilirubin 0.2 mg/dL (0.15-1.2); Total Protein 6.6 g/dL (6.6-8.7)
--- NOTE | 2022-01-25 10:49 | PC.PHAR ---
pt and pts verified pts medications-pts [facility] med list had bupropion hcl 150mg pt states not using-pts states the pt is no longer using the cyclobenzaprine 10mg tid prn rx filled 01/16/22 10d/s states the pt stop taking on 01/21/22-pts va med list has nicotine patches pt states he has not started using them-
--- NOTE | 2022-01-25 11:35 | ECG_ITS ---
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 Measurements Intervals [place] Rate: 73 P: 32 [place]: 156 QRS: 31 QRSD: 98 T: 17 QT: 375 QTc: 416 Interpretive Statements SINUS RHYTHM INDETERMINATE AXIS ANTERIOR MYOCARDIAL INFARCTION , OF INDETERMINATE AGE INFERIOR MYOCARDIAL INFARCTION , PROBABLY OLD Compared to ECG 01/25/2022 09:55:27 No significant changes Electronically Signed On 01-25-2022 19:47:55 CDT by Amanda Salomon M.D. [id number]
[2022-01-25] MEDS: ipratropium-albuterol 3 mL Neb INHALATION (12:15)
[2022-01-25 12:18] LABS: Troponin 5 2HR 11.65 ng/L (0-15)
[2022-01-25 12:26] LABS: Troponin 5 2HR Delta 0.92 ABS# (0-10)
--- NOTE | 2022-01-25 12:57 | PC.NURSE ---
AT 0930 PT O2 NOTED TO BE 88% ON ROOM AIR. UPON FURTHER ASSESSMENT, PT STATED 88-90 IS HIS NORMAL AT HOME AND HE WEARS OXYGEN NEEDED. PT HAS HX OF COPD AND STATES HE WAS AT HIS BASELINE SATURATION. PROVIDER AGREED THAT THIS SATURATION LEVEL WAS ACCEPTABLE FOR THIS PATIENT
[2022-01-25 13:38] LABS: Add Urine Microscopic? YES; Bilirubin Urine 1+ (Negative); Blood Urine 3+ (Negative); Glucose Urine UA Norm (Normal); Ketones Urine Negative (Negative); Leukocyte Esterase Urine Trace (Negative); Nitrate Urine Negative (Negative); Protein Urine 2+ (Negative); Urine Appearance Cloudy (CLEAR); Urine Color Red (Yellow); Urobilinogen Urine 1 mg/dL (Negative); pH Urine 5 (5-7)
[2022-01-25 13:39] LABS: RBC Urine TOO NUMEROUS TO CNT /hpf (0-2); Squamous Epithelial Cell Urine 0-4 /hpf (0-5)
[2022-01-25 13:40] LABS: Bacteria Urine 1+ /hpf
[2022-01-25 13:41] LABS: Add Urine Culture? Yes; Fine Granular Casts Urine 0-4 /lpf; Mucus Urine TRACE /hpf
[2022-01-25] MEDS: cefTRIAXone 1,000 MG in sodium chloride 0.9% (plus) 50 ML 100 MG IV (13:43)
--- NOTE | 2022-01-25 14:22 | P.HP_ITS ---
Providers/Chief Complaint Admitting Physician: Rodolfo Weinberg MD Primary Care Provider: Felton Edgar Chief Complaint: facial weakness, numbness to left arm History of Present Illness Chacorta Siegel is a 66 year old male who was presented to the emergency department twice lately. He would initially presented on 22 January and was diagnosed with a left lower lobe pneumonia. He did not want admitted at that time and was discharged on oxygen, 2 to 3 L as well as cefpodoxime and Zithromax. He reports he has been compliant with treatment. He had presented initially with 3 to 5-day history of shortness of breath, back discomfort, increased cough. He denied any fever or chills. He reports a lot of the symptoms have gone away but he is still short of breath, and significantly weak. He denies any chest pain or back discomfort. He reports his cough is productive at times but he swallows it. No pain with breathing, hematemesis, hemoptysis, blood in stool, black or tarry stool. He reports he also has a concern of his left hand being clumsy and numb but relates this is been going on several months. He reports he feels like he has had at least 1 hallucination in the evening where he saw somebody building a tent where others did not see this. He had not had anything happen like this before. He had recently been taking some tramadol and muscle relaxants he was not used to but does not believe he took any near this incident. He denies any hallucinations currently. Ports his speech is changed, and slurred at times but both believe it is related to his throat cancer he was recently diagnosed with. He is to see the oncologist next week. CTA was performed during one of his hospital visits, with some features consistent with COVID-19 pneumonia. A rapid COVID at that time was negative. Ports he feels off balance at times. He cannot really give me a reason he is on Eliquis. He believes it is for stroke prevention but denies history of atrial fibrillation. Review of Systems General: Reports: 10 or more systems reviewed and unremarkable except in HPI and below Const: Reports: fatigue and malaise; Denies: fever(s) or chills Eyes: Denies: change in vision ENMT: Reports: other (, Slurred speech, hoarse voice); Denies: throat pain Card: Denies: chest pain or palpitations Resp: Reports: dyspnea and productive cough; Denies: hemoptysis GI: Denies: abdominal pain, nausea, vomiting, hematochezia or melena : Denies: flank pain Musc: Denies: neck pain Skin/Breast: Denies: rash Neuro: Denies: headache(s) Psych: Denies: anxiety or depression Endo: Denies: polyuria Paco/Lymph: Denies: easy bruising All/Imm: Denies: urticaria Medications/Allergies Home Medications Medication Instructions Recorded Confirmed Last Taken Type albuterol sulfate 90 mcg/actuation 2 inh inhalation Q4H PRN shortness 11/30/21 01/25/22 Unknown Rx aerosol inhaler of breath or wheezing #18 grams azithromycin 250 mg tablet 250 mg PO DAILY 4 days #4 tabs 01/22/22 01/25/22 01/25/22 03:00 Rx cefpodoxime 200 mg tablet 200 mg PO BID #14 tabs 01/22/22 01/25/22 01/25/22 03:00 Rx apixaban 5 mg tablet (Eliquis) 5 mg PO BID 01/25/22 01/25/22 01/25/22 03:00 History cholecalciferol (vitamin D3) 50 2,000 unit PO QPM 01/25/22 01/25/22 01/24/22 History mcg (2,000 unit) tablet (Vitamin D3) cyanocobalamin (vitamin B-12) 1,000 mcg PO QAM 01/25/22 01/25/22 01/25/22 History 1,000 mcg tablet (Vitamin B-12) diltiazem HCl 360 mg capsule,24 360 mg PO QAM 01/25/22 01/25/22 01/25/22 History hr,extended release lidocaine HCl 2 % mucosal solution 5 ml mucous membrane Q6H PRN Pain 01/25/22 01/25/22 Unknown History (Lidocaine Viscous) lisinopril 40 mg tablet 40 mg PO BEDTIME 01/25/22 01/25/22 01/24/22 History metformin 1,000 mg tablet 500 mg PO QAM 01/25/22 01/25/22 01/25/22 03:00 History mometasone-formoterol HFA 200 2 puff inhalation BID 01/25/22 01/25/22 01/25/22 History mcg-5 mcg/actuation aerosol inhaler polyethylene glycol 3350 17 gram 17 g PO DAILY PRN Constipation 01/25/22 01/25/22 Unknown History oral powder packet (Miralax) rosuvastatin 20 mg tablet (Crestor) 10 mg PO QAM 01/25/22 01/25/22 01/25/22 03:00 History tiotropium bromide 2.5 2 inh inhalation QAM 01/25/22 01/25/22 01/25/22 History mcg/actuation mist for inhalation (Spiriva Respimat) Allergies Allergy/AdvReac Type Severity Reaction Status Date / Time No Known Allergies Allergy Verified 11/30/21 06:18 PFSH Acute PFSH: Medical History (Updated 01/25/22 @ 14:48 by Rodolfo Weinberg MD) COPD (chronic obstructive pulmonary disease) Coronary artery disease Diabetes mellitus Hyperlipidemia Hypertension Stroke Throat cancer Surgical History (Updated 01/25/22 @ 14:30 by Rodolfo Weinberg MD) History of surgery on arm History of surgery on lower extremity Social History (Updated 01/25/22 @ 14:38 by Rodolfo Weinberg MD) Smoking and tobacco status: current every day smoker Alcohol intake: never Vitals/I&O/Wt Last Vital Signs Temp 97.7 F 01/25/22 09:24 Pulse 89 01/25/22 14:08 Resp 22 H 01/25/22 14:08 BP 130/82 01/25/22 09:34 Pulse Ox 93 01/25/22 14:08 O2 Del Method 01/25/22 12:45 O2 Flow Rate 3 01/25/22 14:08 Weight last 48 hrs Weight 90.718 kg Physical Exam Narrative: General exam is a white male, with coarse voice, alert and oriented x3 denying any hallucinations. Mild tachypnea noted, on 3 L of oxygen. HEENT: Atraumatic and normocephalic. Pupils equally round. Oropharynx clear. Neck is supple no lymphadenopathy or thyromegaly Cardiovascular regular rate and rhythm without murmur. No S3 or S4 Lungs coarse breath sounds, with occasional expiratory wheeze. No crackles. Abdomen is soft with positive bowel sounds. No obvious organomegaly exam is deferred Extremities no cyanosis clubbing or edema Skin no rash Neuro: I do not find any neurologic deficit. Cranial nerves II through XII grossly intact. Cerebellar function intact. I cannot elicit weakness in the left upper extremity. Data : 01/25/22 09:51 01/25/22 09:51 Other Labs: Lactate 2.5 Calcium 9.6 LFTs normal with exception of alk phos with slight elevation of 132 Troponin 13 and repeat of 11 CRP 28 down from 118 Albumin 3.2 Urinalysis too numerous to count red blood cells with 10-15 white blood cells. 1+ bacteria. Negative nitrates. Previous urine demonstrated 40-50 red blood cells per high-powered field Previous COVID done on 01/22 was a rapid COVID and negative. CT head demonstrates no acute changes. Some chronic lacunar infarcts are present left whaley, left thalamus. Mild small vessel changes. Chest x-ray straits some groundglass opacities left greater than right, possible pneumonia CTA 07/25 was changes possibly consistent with COVID versus other pneumonia. Liver nodular possibly consistent with cirrhosis. Coronary artery calcifications noted. CT neck demonstrated abscess versus mass peritonsillar tissue bilaterally with no extension into the retropharyngeal space. This was done on 12/27 Cultures were collected EKG demonstrated sinus rhythm, normal axis, poor R wave progression. Cannot rule out previous anterior myocardial infarction Micro: Microbiology 01/25/22 11:55 Blood Culture - Preliminary Blood SPECIMEN COLLECTED 01/25/22 11:50 Blood Culture - Preliminary Blood SPECIMEN COLLECTED A&P Assessment and plan (1) Pneumonia: Recently diagnosed with pneumonia from the emergency department, and sent home on 3 L of oxygen. He has been receiving cephalosporin and Zithromax. At this point will initiate Zosyn ne and he is already been treated adequately for atypical organisms. Secondary to his throat cancer there may be risk of aspiration. ST evaluation Sputum culture Obtain COVID PCR Blood culture has already been obtained Status: Acute (2) Hypoxia: Likely secondary to pneumonia Status: Acute (3) Acute exacerbation of chronic obstructive pulmonary disease: Pulmonary toilet Inhaled steroid twice daily Smoking avoidance secondary to his tobacco dependence. Provide nicotine patch to try to prevent withdrawal in the hospital Dexamethasone currently. Status: Acute (4) Stroke: With past history of some occlusion or strokes. I believe he is on Eliquis for stroke prevention although I do not find a history of atrial fibrillation and records here at the hospital. Either way continue statin, Eliquis. Add low- dose aspirin. Check CTA head and neck, which does not need to be done stat or acutely considering chronicity of symptoms. CT head is already been done. Status: Acute (5) Hallucinations: Etiology unclear. Unlikely to be stroke related. Could have been related to tramadol, muscle relaxants which she recently took, hypoxia, or other etiology. Status: Acute (6) Throat cancer: Diagnosed with throat cancer. Previous CT suggested tonsillar cancer. He is to see oncology soon. This may contribute some to his slurred speech, voice change. Status: Acute (7) Diabetes mellitus: Mild sliding scale insulin, consistent carb diet Status: Acute (8) Coronary artery disease: Continue statin. Add low-dose aspirin Check echocardiogram secondary to history of coronary disease, recent elevation in troponin, abnormal EKG Status: Acute Plan Neurologic symptoms somewhat difficult to define with issues with imbalance, left hand clumsiness, hallucinations, slurred speech occurring at different times and with different chronicity. Check CTA head and neck. CT head is alre colin been done. Telemetry. Continue Eliquis. Add aspirin. Continue statin. Microscopic hematuria. Considering his acute illness will get CT renal protocol to rule out renal stone, bladder tumor. He had a significant amount of red blood cells noted microscopically last ER visit as well. Multiple other medical problems as noted in HPI Eliquis will suffice for DVT prophylaxis, SCDs as well Full code Attestations Medical Necessity Statement*: Will require greater than 2 midnight stay secondary to hypoxia with COPD exacerbation and pneumonia. Coding Level of Care Code Acute [facility] for [facility] Diagnoses Pneumonia J18.9 Hypoxia R09.02 Acute exacerbation of chronic obstructive pulmonary disease J44.1 Stroke I63.9 Hallucinations R44.3 Throat cancer C14.0 Diabetes mellitus E11.9 Coronary artery disease I25.10
--- NOTE | 2022-01-25 14:31 | CTR_ITS ---
PROCEDURE INFORMATION: Exam: CT Abdomen And Pelvis Without Contrast Exam date and time: 01/25/2022 11:38 PM Age: 66 years old Clinical indication: Other: Hematuria; Additional info: Microscopic hematuria TECHNIQUE: Imaging protocol: Computed tomography of the abdomen and pelvis without contrast. Radiation optimization: All CT scans at this facility use at least one of these dose optimization techniques: automated exposure control; mA and/or kV adjustment per patient size (includes targeted exams where dose is matched to clinical indication); or iterative reconstruction. COMPARISON: CT Abdomen/Pelvis [facility] [id number] 08/08/2018 10:05 AM RADIATION DOSE METRICS: Total DLP (mGy-cm): 681.03 FINDINGS: Lungs: Mild lingular and bibasilar atelectasis, fibrosis or scarring. Tiny right basilar calcified granuloma. Heart: Coronary artery calcifications. Liver: No acute abnormality on noncontrast imaging. Gallbladder and bile ducts: No acute abnormality. No calcified stones. No ductal dilation. Pancreas: No acute abnormality. No ductal dilation. Spleen: Punctate splenic calcified granulomas. Adrenal glands: No acute abnormality. No mass. Kidneys and ureters: Bilateral renal vascular calcifications. No renal or ureteral calculi. No hydronephrosis or hydroureter. Redemonstrated incidental tiny 8 mm left renal upper pole cyst. Stomach and bowel: No significant large or small bowel distention. Colonic diverticulosis without CT evidence of diverticulitis. Appendix: Appendix is visualized and appears normal. Intraperitoneal space: No significant fluid collection. No free air. Vasculature: Diffuse atherosclerotic vascular calcification. No aortic aneurysm. Lymph nodes: No enlarged lymph nodes. Urinary bladder: Incompletely distended urinary bladder. No bladder calculi. Reproductive: Mildly prominent prostate which indents the urinary bladder base. Bones/joints: Old left 10th and 11th rib fractures. Multilevel spondylosis and degenerative bony changes. Soft tissues: Small fat-containing right inguinal hernia. CT/CT kidney stone [id number] IMPRESSION: 1. No evidence of urinary calculus or obstructive uropathy. 2. Mildly prominent prostate which indents the urinary bladder base. 3. Colonic diverticulosis without CT evidence of diverticulitis. 4. Atherosclerotic vascular disease including coronary artery disease.
[2022-01-25] MEDS: doxycycline 100 MG in sodium chloride 0.9% (plus) 100 ML IV (14:40)
[2022-01-25 14:54] LABS: Magnesium 1.6 mg/dL (1.7-2.3)
[2022-01-25] MEDS: acetaminophen 500 mg Tablet 1000 MG PO (15:08)
--- NOTE | 2022-01-25 15:24 | CTR_ITS ---
PROCEDURE INFORMATION: Exam: CTA Head With Contrast, Arteriography Exam date and time: 01/25/2022 11:43 PM Age: 66 years old Clinical indication: Patient HX: C/O left hand numbness and altered gait. History of CVA. ; Additional info: Past history of CVA, recurrent intermittent vague symptoms, left hand numbness, imbalance TECHNIQUE: Imaging protocol: Computed tomographic angiography of the head with contrast. Exam focused on the arteries. 3D rendering (Not supervised by radiologist): MIP and/or 3D reconstructed images were created by the technologist. Radiation optimization: All CT scans at this facility use at least one of these dose optimization techniques: automated exposure control; mA and/or kV adjustment per patient size (includes targeted exams where dose is matched to clinical indication); or iterative reconstruction. Contrast material: OMNI 350; Contrast volume: 95 ml; Contrast route: INTRAVENOUS (IV); COMPARISON: CT head wo con* [id number] 01/25/2022 10:17 AM RADIATION DOSE METRICS: Total DLP (mGy-cm): 489.02 FINDINGS: ANTERIOR CIRCULATION: Right internal carotid artery: Unremarkable. Intracranial segment is patent with no significant stenosis. No aneurysm. Right middle cerebral artery: Unremarkable. No occlusion or significant stenosis. No aneurysm. Right anterior cerebral artery: Unremarkable. No occlusion or significant stenosis. No aneurysm. Left internal carotid artery: Unremarkable. Intracranial segment is patent with no significant stenosis. No aneurysm. Left middle cerebral artery: Unremarkable. No occlusion or significant stenosis. No aneurysm. Left anterior cerebral artery: Unremarkable. No occlusion or significant stenosis. No aneurysm. POSTERIOR CIRCULATION: Right vertebral artery: Unremarkable. No occlusion or significant stenosis. No aneurysm. Left vertebral artery: Unremarkable. No occlusion or significant stenosis. No aneurysm. Basilar artery: Unremarkable. No occlusion or significant stenosis. No aneurysm. Right posterior cerebral artery: Unremarkable. No occlusion or significant stenosis. No aneurysm. Left posterior cerebral artery: Unremarkable. No occlusion or significant stenosis. No aneurysm. Brain: Mild prominence of the sulci consistent with diffuse atrophy. No mass effect or midline shift. Periventricular and subcortical white matter low-attenuation consistent with chronic small vessel ischemic changes. Bilateral basal ganglia and thalami small remote lacunar infarcts. No evidence of acute intracranial hemorrhage. Cerebral ventricles: Ventricular prominence proportional to sulci. No hydrocephalus. Bones/joints: No acute osseous abnormality. No acute fracture. Soft tissues: No significant soft tissue abnormalities. PROCEDURE INFORMATION: Exam: CTA Neck With Contrast Exam date and time: 01/25/2022 11:43 PM Age: 66 years old Clinical indication: Patient HX: C/O left hand numbness and altered gait. History of CVA. ; Additional info: Past history of CVA, recurrent intermittent vague symptoms, left hand numbness, imbalance TECHNIQUE: Imaging protocol: Computed tomographic angiography of the neck with contrast. 3D rendering (Not supervised by radiologist): MIP and/or 3D reconstructed images were created by the technologist. Radiation optimization: All CT scans at this facility use at least one of these dose optimization techniques: automated exposure control; mA and/or kV adjustment per patient size (includes targeted exams where dose is matched to clinical indication); or iterative reconstruction. Contrast material: OMNI 350; Contrast volume: 95 ml; Contrast route: INTRAVENOUS (IV); COMPARISON: CT neck w con* [id number] 12/27/2021 6:22 AM RADIATION DOSE METRICS: Total DLP (mGy-cm): 489.02 FINDINGS: Limitations: Mild motion artifact. Right common carotid artery: Patent enhancing right common carotid artery. No significant stenosis. No dissection or occlusion. Right internal carotid artery: Calcific plaque along the right carotid bifurcation and carotid bulb with mild less than 30% proximal right ICA stenosis with respect to the distal ICA lumen. No dissection or occlusion. Right external carotid artery: Patent enhancing right external carotid artery. No occlusion or significant stenosis. Left common carotid artery: Patent enhancing left common carotid artery. No significant stenosis. No dissection or occlusion. Left internal carotid artery: Calcific plaque along the left carotid bifurcation and carotid bulb with mild less than 50% proximal left ICA stenosis with respect to the distal ICA lumen. No dissection or occlusion. Left external carotid artery: Patent enhancing left external carotid artery. No occlusion or significant stenosis. Right vertebral artery: Patent enhancing right vertebral artery. No significant stenosis. No dissection or occlusion. Left vertebral artery: Patent enhancing left vertebral artery. No significant stenosis. No dissection or occlusion. Pharynx: Lobulated infiltrating necrotic pharyngeal/tonsillar mass right greater than left. Pharyngeal lesion extension into the right parapharyngeal space and along the right aryepiglottic fold. Lymph nodes: Mild cervical lymphadenopathy right greater than left. Soft tissues: No significant soft tissue abnormalities. Bones/joints: No acute osseous abnormality. No acute fracture. Lungs: Upper lung zone and biapical emphysema. CT/CT angio headneck* [id number] IMPRESSION: 1. No evidence of significant intracranial vascular disease or acute vessel occlusion. 2. Mild atrophy and chronic/remote ischemic changes without evidence of superimposed acute infarct, hemorrhage or mass-effect at this time. IMPRESSION: 1. Calcific plaque along the right carotid bifurcation and carotid bulb with mild less than 30% proximal right ICA stenosis with respect to the distal ICA lumen. 2. Calcific plaque along the left carotid bifurcation and carotid bulb with mild less than 50% proximal left ICA stenosis with respect to the distal ICA lumen. 3. Lobulated infiltrating necrotic pharyngeal/tonsillar mass right greater than left. Findings are highly suspicious for infiltrating neoplasm. 4. Mild cervical lymphadenopathy right greater than left. 5. Upper lung zone and biapical emphysema. REFERENCES: NASCET CRITERIA. The degree of internal carotid artery stenosis is based on NASCET criteria. Normal is no stenosis. Mild is less than 50% stenosis. Moderate is 50-69% stenosis. Severe is 70% to 99% stenosis. Total occlusion is no detectable patent lumen.
--- NOTE | 2022-01-25 15:24 | USCV_ITS ---
Chacorta Siegel Age: 66 Gender: M : 1955 Exam Date: 01/25/2022 17:12 Ordering Phys: Rodolfo Weinberg MD Technologist: KATTY [place] [facility] [place]: ABNORMAL EKG BP: 123 / 73 HR: 82 Rhythm: Sinus Technical Quality: MEASUREMENTS (Male / Female) Normal Values 2D ECHO LVOT Diameter 2.1 cm LV Ejection Fraction MOD 2C 69.4 % LV Ejection Fraction 2C AL 68.5 % LA Diameter 4.1 cm LA Width 3.3 cm LA Height 3.6 cm RA Width 2.7 cm RA Height 4.6 cm Aorta at Sinotubular Diameter 2.6 cm IVC Diameter 1.6 cm DOPPLER AV Peak Velocity 146.0 cm/s LVOT Peak Velocity 118.0 cm/s AV Area Cont Eq vti 2.9 cm squared AV Area Cont Eq pk 2.7 cm squared MV Peak Velocity 94.0 cm/s MV Area PHT 3.9 cm squared Mitral E to A Ratio 0.7 MV E' Velocity 38.0 cm/s Mitral E to MV E' Ratio 6.4 Mitral E to LV E' Lateral Ratio 6.6 Mitral E to LV E' Septal Ratio 6.2 TR Peak Velocity 147.3 cm/s TR Peak Gradient 8.7 mmHg TR Mean Velocity 120.0 cm/s TR Mean Gradient 6.2 mmHg TR Velocity Time Integral 41.0 cm TV Peak E Velocity 52.0 cm/s Right Atrial Pressure 3.0 mmHg Pulmonary Artery Systolic Pressu 11.7 mmHg PV Peak Velocity 94.0 cm/s RV Acceleration Time 0.1 s RV Ejection Time 0.3 s RV AcT/ET 0.4 FINDINGS Left Ventricle Normal left ventricular size, systolic function and wall thickness, with no regional wall motion abnormalities. Left ventricular ejection fraction is estimated at 60 %. Grade I/IV diastolic dysfunction (abnormal relaxation filling pattern), normal to mildly elevated filling pressures. Right Ventricle Normal right ventricular size and systolic function. Normal right ventricular systolic pressure. Right Atrium The right atrium is normal in size. Left Atrium The left atrium is normal in size. Mitral Valve Structurally normal mitral valve. No mitral valve regurgitation. Aortic Valve Structurally normal aortic valve without significant sclerosis or stenosis. There is no aortic regurgitation. Tricuspid Valve Structurally normal tricuspid valve. Trace tricuspid valve regurgitation. Pulmonic Valve Pulmonic valve not well visualized. Pericardium Normal pericardium without effusion. Aorta Normal ascending aorta dimension. IVC The inferior vena cava pulmonary and hepatic veins appear normal. CONCLUSIONS Normal left ventricular size, systolic function and wall thickness, with no regional wall motion abnormalities. Left ventricular ejection fraction is estimated at 60 %. Grade I/IV diastolic dysfunction (abnormal relaxation filling pattern), normal to mildly elevated filling pressures. Dr. Matthias Banerjee MD (Electronically Signed) Final Date: 26 January 2022 08:30 S
--- NOTE | 2022-01-25 15:55 | ECG_ITS ---
[facility] Test Date: 2022-01-25 Pat Name: Chacorta Siegel Department: Room: 253 Gender: Male [employer]: : 1955 Requested By: Jayesh Luther Order Number: [id number] Jannie MD: Amanda Salomon M.D. Measurements Intervals [place] Rate: 79 P: 45 MS: 171 QRS: 73 QRSD: 97 T: 20 QT: 367 QTc: 423 Interpretive Statements SINUS RHYTHM ANTERIOR MYOCARDIAL INFARCTION , OF INDETERMINATE AGE [40+ ms Q WAVE AND/OR ST/T ABNORMALITY IN V3/V4] Compared to ECG 01/25/2022 11:35:44 Indeterminate axis no longer present Myocardial infarct finding still present Electronically Signed On 01-25-2022 19:45:16 CDT by Amanda Salomon M.D. [id number]
[2022-01-25] MEDS: piperacillin-tazobactam 3.375 GM in sodium chloride 0.9% (plus) 50 ML IV (16:27)
[2022-01-25] MEDS: dexamethasone 10 mg/mL INJ 6 MG IVP (16:28)
[2022-01-25] MEDS: nicotine 21 mg Patch 1 PATCH TRANSDERMA (16:28)
[2022-01-25] MEDS: magnesium sulfate premix 2 GM/50 ML PIGGYBACK IV (16:36)
[2022-01-25 16:43] LABS: Troponin 5 6HR 11.48 ng/L (0-15)
[2022-01-25 16:47] LABS: Troponin 5 6HR Delta 1.09 ng/L (0-12)
[2022-01-25 17:26] LABS: Glucose Point of Care 110 mg/dL (70-110)
[2022-01-25] MEDS: apixaban 5 mg Tablet PO (17:35)
[2022-01-25] MEDS: budesonide 0.5 mg/2 mL Neb INHALATION (20:13)
[2022-01-25] MEDS: lisinopril 20 mg Tablet 40 MG PO (21:43)
[2022-01-25 22:24] LABS: Glucose Point of Care 196 mg/dL (70-110)
[2022-01-25] MEDS: insulin lispro 100 unit/1 mL SUBCUT (22:33)
[2022-01-25] MEDS: iohexol 350 mg/mL 100 mL Btl IV (23:50)
[2022-01-26] VITALS: BP 95/53; PULSE 97; RESP 12; TEMP 36.5; O2SAT 96
[2022-01-26] MEDS: piperacillin-tazobactam 3.375 GM in sodium chloride 0.9% (plus) 50 ML IV ×2 (00:44→08:46)
[2022-01-26 04:00] VITALS: BP 135/78; PULSE 97; RESP 15; TEMP 36.7; O2SAT 95
[2022-01-26 04:51] LABS: Basophils % 0.1 %; Hematocrit 37.2 % (42.0-52.0); Hemoglobin 11.9 g/dL (11.7-16.6); Lymphocytes # 1.2 10^3/uL (0.8-4.8); Mean Corpuscular Volume 90.7 fl (80-94); Mean Platelet Volume 9.1 fL (7.4-10.4); Monocytes # 0.1 10^3/uL (0.2-0.9); Monocytes % 1.1 %; Neutrophils % 84.1 %; Nucleated Red Blood Cells % 0 %; Platelet Count 435 10^3/cmm (130-400); Red Cell Distribution Width 13.3 % (12.1-15.1); White Blood Count 9.2 10^3/uL (4.0-10.0)
[2022-01-26 05:21] LABS: Alanine Aminotransferase 24 U/L (0-41); Albumin Level 2.6 g/dL (3.5-5.2); Alkaline Phosphatase 120 IU/L (40-130); Anion Gap 16.7 (5-19); Aspartate Amino Transferase 20 U/L (0-40); Blood Urea Nitrogen 16 mg/dL (8-23); Calcium 9.3 mg/dL (8.5-10.5); Carbon Dioxide 23 mmol/L (22-29); Chloride 103 mmol/L (98-107); Globulin 4.3 g/dL (1.3-4.6); Glomerular Filtration Rate 135.2 mL/min (90-130); Glucose 140 mg/dL (65-115); Osmolality Calculated 289 mOsm/kg (285-295); Potassium 4.7 mmol/L (3.5-5.1); Sodium 138 mmol/L (136-145); Total Bilirubin 0.2 mg/dL (0.15-1.2); Total Protein 6.9 g/dL (6.6-8.7)
[2022-01-26] MEDS: dilTIAZem ER (24HR) 120 mg Capsule 360 MG PO (05:57)
[2022-01-26] MEDS: atorvastatin 40 mg Tablet 20 MG PO (05:57)
[2022-01-26 06:45] LABS: Glucose Point of Care 249 mg/dL (70-110)
[2022-01-26 08:00] VITALS: BP 126/74; PULSE 96; RESP 16; TEMP 36.7; O2SAT 93
[2022-01-26] MEDS: insulin lispro 100 unit/1 mL SUBCUT (08:46)
[2022-01-26] MEDS: aspirin 81 mg EC Tablet PO (08:46)
[2022-01-26] MEDS: apixaban 5 mg Tablet PO (08:46)
[2022-01-26 09:50] VITALS: PULSE 97; RESP 17; O2SAT 94
[2022-01-26] MEDS: budesonide 0.5 mg/2 mL Neb INHALATION (09:50)
[2022-01-26] MEDS: ipratropium-albuterol 3 mL Neb INHALATION (09:50)
[2022-01-26 09:57] VITALS: PULSE 102
--- NOTE | 2022-01-26 09:59 | PC.CHAP ---
Pastoral Care Encounter/Spiritual Assessment Type of Contact [] Declined road design engineer visit [] Patient/Family/Request visit [] Outpatient visit [] Follow-up visit [] Physician referral [] Code/Alert [] Routine visit [] Staff referral [] Actively dying [] Patient sleeping [] Family support [] [] Out of room [] Palliative care [] [] Receiving care in room [] Pre-surgical visit [] Trauma [] Long length of stay [] ICU visit [x] Other: Lsolation Relational/Emotional Strength [] Patient feels connected with others/family/visitors/staff [] Distress [] Loneliness/isolation [] Abandonment Spirituality of Patient [] Person of Sonya [] Attends Amish of their Sonya [] Believes in Prayer [] Reads Bible or Gnosticist materials [] There are Spiritual issues to be addressed Top Frame Fitter Interventions [] Prayer [] Active listening [] Non-anxious presence [] Spiritual/emotional support [] Crisis/trauma care [] Spiritual counseling [] Bereavement support [] Provided bereavement packet [] Provided Bible/devotional materials [] Provided toy/stuffed animal, coloring book to patient or family member [] Provided Communion [] Anointing/[place] [] Salvation [] Completed spiritual assessment [] Other: Impact on Illness or Injury [] Angry [] Fearful [] Anxious [] Often cries [] Exhaustion [] Unable to work [] Unable to attend oriental orthodox [] Unable to walk/stand [] Unable to read [] Unable to drive [] Unable to eat/drink [] Unable to sleep [] Unable to be with family [] Patient intubated [] Other: Summary Lsolation Time spent with patient 5 mins
[2022-01-26 10:58] LABS: Adenovirus Not Detected (NOT DETECT); Chlamydia Pneumoniae Not Detected (NOT DETECT); Coronavirus 229E,HKU1,NL63,OC4 Not Detected (NOT DETECT); Human Metapneumovirus Not Detected (NOT DETECT); Human Rhinovirus/Enterovirus Not Detected (NOT DETECT); Influenza A Not Detected (NOT DETECT); Influenza A H1 Not Detected (NOT DETECT); Influenza A H1-2009 Not Detected (NOT DETECT); Influenza A H3 Not Detected (NOT DETECT); Influenza B Not Detected (NOT DETECT); Mycoplasma Pneumoniae Not Detected (NOT DETECT); Parainfluenza Virus Type 1 Not Detected (NOT DETECT); Parainfluenza Virus Type 2 Not Detected (NOT DETECT); Parainfluenza Virus Type 3 Not Detected (NOT DETECT); Parainfluenza Virus Type 4 Not Detected (NOT DETECT); Respiratory Syncytial Virus A Not Detected (NOT DETECT); Respiratory Syncytial Virus B Not Detected (NOT DETECT); SARS-COV-2 Not Detected (NOT DETECT)
[2022-01-26 11:12] LABS: Glucose Point of Care 139 mg/dL (70-110)
[2022-01-26 12:00] VITALS: BP 125/78; PULSE 96; RESP 18; TEMP 36.3; O2SAT 92
--- NOTE | 2022-01-26 12:29 | P.DS_ITS ---
Discharge Providers Date of Admission: 01/25/22 15:24 Date of Discharge: January 26, 2022 Attending Provider at Admission: Rodolfo Weinberg MD Attending Provider at Discharge: Rodolfo Weinberg MD Primary Care Provider: Felton Edgar Diagnoses at Discharge Discharge Diagnosis (1) Pneumonia: Status: Acute (2) Hypoxia: Status: Acute (3) Acute exacerbation of chronic obstructive pulmonary disease: Status: Acute (4) Stroke: Status: Acute (5) Hallucinations: Status: Acute (6) Throat cancer: Status: Acute (7) Diabetes mellitus: Status: Acute (8) Coronary artery disease: Status: Acute Reason for Visit Reason for Visit: facial weakness, numbness to left arm Hospital Course Hospital Course Chacorta is a 66-year-old white male who presented to the hospital with complaints of weakness, cough, recent treatment for pneumonia, and some neurologic symptoms that were different agents. He also had some hallucinations but he been taking some tramadol and muscle relaxants. A CTA head performed on an earlier ER visit and was consistent with pneumonia and likely COVID. During this stay, he was treated for pneumonia with IV antibiotics. He was treated for COPD exacerbation with IV steroids and frequent nebs. A COVID PCR was done and negative. Secondary to his neurologic symptoms, a CTA of the head and neck was obtained which demonstrated some atherosclerotic disease but no surgical disease. Noncontrast CT of head had already been done. No evidence of stroke was noted on CTA head and neck. The patient had no hallucinations while in the hospital. He was currently under evaluation for throat cancer and has an oncology visit next week. An echocardiogram was also done secondary to history of coronary disease, previous elevation in troponin and abnormal EKG. This demonstrated preserved EF, mild diastolic dysfunction. After spending the night in the hospital energy was significantly better. He denied any significant shortness of breath. He reported he would like to go home. With his significant improvement, adequate oxygenation on 2 L of nasal cannula which he is chronically on it was thought he could be discharged home in stable condition with close follow-up with his oncologist as well as his primary care provider. He was instructed not to take his metformin for 2 days secondary to radiologic dye he received. His questions were answered and he agreed with plan. He will finish a course of Augmentin for his pneumonia. This was chosen secondary to possibility of aspiration secondary to his throat malignancy. He will also finish a short course of steroids. He is return for any significant hallucinations. He is to avoid any muscle relaxants or tramadol. Physical Exam Narrative: General exam no apparent distress Neck is supple no lymphadenopathy or thyromegaly Cardiovascular regular rate and rhythm without murmur Lungs diminished breath sounds at the bases and a few coarse breath sounds but no wheezing today. Abdomen is soft nontender positive bowel sounds Extremities no cyanosis clubbing or edema Neuro no obvious focal deficits Discharge Data Studies Completed and Pending Completed Studies During Hospitalization Category Date Time Status CT abdomen renal stone [CT kidney stone 84901] Urgent Cat Scan 01/25/22 14:[address] head wo con* [id number] Stat Cat Scan 01/25/22 09:34 Completed CTA head neck [CT angio headneck* 64410/[id number]] Routine Cat Scan 01/25/22 15:24 Completed XR chest 1V portable [id number] Urgent Exams 01/25/22 09:34 Completed US echo complete [CV. echo complete* [id number]] Routine Ultrasound 01/25/22 15:24 Completed Pending at discharge Category Date Time Status Blood Culture Stat Lab 01/25/22 11:55 Results COVID OZH [Coronavirus PCR] Routine Lab 01/25/22 13:50 Uncollected Sputum Culture and Gram Stain Routine Lab 01/25/22 14:31 Ordered Urine Culture Routine Lab 01/25/22 21:30 Received Urine Culture Stat Lab 01/25/22 12:30 Results Radiology Impressions Chest X-Ray 01/25/22 09:34 IMPRESSION: Minimal ground-glass density in the lung bases more prominent on the left versus the right may be consistent with mild airspace disease versus atelectasis or scarring. Head CT 01/25/22 09:34 IMPRESSION: 1. No evidence of intracranial hemorrhage or mass effect. 2. Mild small vessel changes. Moderate parenchymal volume loss. 3. No acute intracranial findings. Abdomen/Pelvis CT 01/25/22 14:31 IMPRESSION: 1. No evidence of urinary calculus or obstructive uropathy. 2. Mildly prominent prostate which indents the urinary bladder base. 3. Colonic diverticulosis without CT evidence of diverticulitis. 4. Atherosclerotic vascular disease including coronary artery disease. Head/Neck CTA 01/25/22 15:24 IMPRESSION: 1. No evidence of significant intracranial vascular disease or acute vessel occlusion. 2. Mild atrophy and chronic/remote ischemic changes without evidence of superimposed acute infarct, hemorrhage or mass-effect at this time. IMPRESSION: 1. Calcific plaque along the right carotid bifurcation and carotid bulb with mild less than 30% proximal right ICA stenosis with respect to the distal ICA lumen. 2. Calcific plaque along the left carotid bifurcation and carotid bulb with mild less than 50% proximal left ICA stenosis with respect to the distal ICA lumen. 3. Lobulated infiltrating necrotic pharyngeal/tonsillar mass right greater than left. Findings are highly suspicious for infiltrating neoplasm. 4. Mild cervical lymphadenopathy right greater than left. 5. Upper lung zone and biapical emphysema. REFERENCES: NASCET CRITERIA. The degree of internal carotid artery stenosis is based on NASCET criteria. Normal is no stenosis. Mild is less than 50% stenosis. Moderate is 50-69% stenosis. Severe is 70% to 99% stenosis. Total occlusion is no detectable patent lumen. ADDENDUM: 01/26/22 0217 THIS REPORT CONTAINS FINDINGS THAT MAY BE CRITICAL TO PATIENT CARE. The findings were verbally communicated via telephone conference with IRISH Landon at 2:14 AM CDT on 01/26/2022. The findings were acknowledged and understood. Laboratory Results WBC 9.2 10^3/uL (4.0-10.0) 01/26/22 04:45 RBC 4.10 10^6/uL (4.1-5.3) 01/26/22 04:45 Hgb 11.9 g/dL (11.7-16.6) 01/26/22 04:45 Hct 37.2 % (42.0-52.0) L 01/26/22 04:45 MCV 90.7 fl (80-94) 01/26/22 04:45 MCH 29.0 pg (28.0-34.0) 01/26/22 04:45 MCHC 32.0 g/dL (30.0-36.0) 01/26/22 04:45 RDW 13.3 % (12.1-15.1) 01/26/22 04:45 Plt Count 435 10^3/cmm (130-400) H 01/26/22 04:45 MPV 9.1 fL (7.4-10.4) 01/26/22 04:45 Neut % (Auto) 84.1 % 01/26/22 04:45 Lymph % (Auto) 13.0 % 01/26/22 04:45 [place] % (Auto) 1.1 % 01/26/22 04:45 Eos % (Auto) 0.0 % 01/26/22 04:45 Baso % (Auto) 0.1 % 01/26/22 04:45 Neut # (Auto) 7.70 10^3/uL (1.8-7.7) 01/26/22 04:45 Lymph # (Auto) 1.2 10^3/uL (0.8-4.8) 01/26/22 04:45 [place] # (Auto) 0.1 10^3/uL (0.2-0.9) L 01/26/22 04:45 Eos # (Auto) 0.0 10^3/uL (0.0-0.8) 01/26/22 04:45 Baso # (Auto) 0.0 10^3/uL (0.0-0.1) 01/26/22 04:45 Nucleated RBC % (auto) 0 % 01/26/22 04:45 Nucleated RBCs # 0.0 /100WBC 01/26/22 04:45 Sodium 138 mmol/L (136-145) 01/26/22 04:45 Potassium 4.7 mmol/L (3.5-5.1) 01/26/22 04:45 Chloride 103 mmol/L (98-107) 01/26/22 04:45 Carbon Dioxide 23 mmol/L (22-29) 01/26/22 04:45 Anion Gap 16.7 (5-19) 01/26/22 04:45 BUN 16 mg/dL (8-23) 01/26/22 04:45 Creatinine 0.6 mg/dL (0.7-1.2) L 01/26/22 04:45 GFR Calculation 135.2 mL/min (90-130) H 01/26/22 04:45 Glucose 140 mg/dL (65-115) H 01/26/22 04:45 POC Glucose 139 mg/dL (70-110) H 01/26/22 10:59 Calculated Osmolality 289 mOsm/kg (285-295) 01/26/22 04:45 Lactate 2.5 mmol/L (0.5-2.2) H 01/25/22 09:51 Calcium 9.3 mg/dL (8.5-10.5) 01/26/22 04:45 Magnesium 1.6 mg/dL (1.7-2.3) L 01/25/22 11:50 Total Bilirubin 0.2 mg/dL (0.15-1.2) 01/26/22 04:45 AST 20 U/L (0-40) 01/26/22 04:45 ALT 24 U/L (0-41) 01/26/22 04:45 Alkaline Phosphatase 120 IU/L (40-130) 01/26/22 04:45 Troponin T Baseline 13 ng/L (0-15) 01/25/22 09:51 Troponin T 120 Minute 11.65 ng/L (0-15) 01/25/22 11:50 Delta Troponin T 0.92 ABS# (0-10) 01/25/22 11:50 Troponin T Hi Sens 6Hr 11.48 ng/L (0-15) 01/25/22 16:03 Troponin T Hi Sens 6Hr Delta 1.09 ng/L (0-12) 01/25/22 16:03 C-Reactive Protein 27.8 mg/L (0.0-4.9) H 01/25/22 09:51 NT-Pro-B Natriuret Pep 122 pg/mL (0-125) 01/25/22 09:51 Total Protein 6.9 g/dL (6.6-8.7) 01/26/22 04:45 Albumin 2.6 g/dL (3.5-5.2) L 01/26/22 04:45 Globulin 4.3 g/dL (1.3-4.6) 01/26/22 04:45 Procalcitonin 0.13 ng/mL (0-0.5) 01/25/22 09:51 TSH 0.77 uIU/mL (0.27-4.20) 01/25/22 09:51 Urine Color Red (Yellow) 01/25/22 12:30 Urine Appearance Cloudy (CLEAR) 01/25/22 12:30 Urine pH 5 (5-7) 01/25/22 12:30 Ur Specific [place] 1.020 (1.005-1.030) 01/25/22 12:30 Urine Protein 2+ (Negative) H 01/25/22 12:30 Urine Glucose (UA) Norm (Normal) 01/25/22 12:30 Urine Ketones Negative (Negative) 01/25/22 12:30 Urine Blood 3+ (Negative) H 01/25/22 12:30 Urine Nitrate Negative (Negative) 01/25/22 12:30 Urine Bilirubin 1+ (Negative) H 01/25/22 12:30 Urine Urobilinogen 1 mg/dL (Negative) H 01/25/22 12:30 Ur Leukocyte Esterase Trace (Negative) H 01/25/22 12:30 Urine RBC Too numerous to cnt /hpf (0-2) H 01/25/22 12:30 Urine WBC 10-15 /hpf (0-5) H 01/25/22 12:30 Ur Squamous Epith Cells 0-4 /hpf (0-5) H 01/25/22 12:30 Amorphous Sediment Not Reportable 01/25/22 12:30 Urine Bacteria 1+ /hpf (NONE) H 01/25/22 12:30 Fine Granular Casts 0-4 /lpf H 01/25/22 12:30 Urine Mucus Trace /hpf 01/25/22 12:30 Coronavirus 229E (PCR) Not detected (NOT DETECT) 01/25/22 20:50 SARS-CoV-2 (PCR) Not detected (NOT DETECT) 01/25/22 20:50 SARS-CoV-2 RNA (RT-PCR) Cancelled 01/25/22 20:50 Vitals Last Vital Signs Temp 98.0 F 01/26/22 08:00 Pulse 102 H 01/26/22 09:57 Resp 17 01/26/22 09:50 BP 126/74 01/26/22 08:00 Pulse Ox 94 01/26/22 09:50 O2 Del Method 01/26/22 09:50 O2 Flow Rate 2 01/26/22 09:50 Discharge Plan Discharge Patient Disposition: Home Condition: Stable Prescriptions: New amoxicillin-pot clavulanate 875-125 mg tablet 1 tab PO BID Qty: 14 0RF prednisone 20 mg tablet 20 mg PO DAILY 4 Days Qty: 8 0RF aspirin 81 mg Tablet,Delayed Release (Dr/Ec) 81 mg PO DAILY Qty: 30 0RF Continued albuterol sulfate 90 mcg/actuation HFA aerosol inhaler 2 inh INHALATION Q4H PRN (Reason: shortness of breath or wheezing) Qty: 18 0RF Vitamin B-12 1,000 mcg Tablet 1,000 mcg PO QAM diltiazem HCl 360 mg Capsule,Extended Release 24 Hr 360 mg PO QAM metformin 1,000 mg Tablet 500 mg PO QAM Lidocaine Viscous 2 % solution 5 ml mucous membrane Q6H PRN (Reason: Pain) lisinopril 40 mg Tablet 40 mg PO BEDTIME Crestor 20 mg Tablet 10 mg PO QAM Vitamin D3 50 mcg (2,000 unit) Tablet 2,000 unit PO QPM Eliquis 5 mg Tablet 5 mg PO BID Spiriva Respimat 2.5 mcg/actuation Mist 2 inh INHALATION QAM mometasone-formoterol 200-5 mcg/actuation Hfa Aerosol Inhaler 2 puff INHALATION BID Miralax 17 gram Powder In Packet 17 g PO DAILY PRN (Reason: Constipation) Discontinued azithromycin 250 mg tablet 250 mg PO DAILY 4 Days Qty: 4 0RF Rx Instructions: start on 01/23/22 cefpodoxime 200 mg tablet 200 mg PO BID Qty: 14 0RF Rx Instructions: must administer with a meal/food Discharge Orders: Discharge Order (Routine); Ordered 01/26/22 Ordered By: Rodolfo Weinberg Referrals: Felton Edgar [Primary Care Provider] - 4-7 days Patient Instructions: Opioid Safety Activity Restrictions/Additional Instructions: Do not take your metformin until January 28 secondary to radiological dye you rec eived. Take all medicine as prescribed Follow-up with your oncologist next week with the appointment you already have See your primary care provider in 3 to 5 days. No smoking Use your 2 L of oxygen continuously. Discharge Attestations Time Spent in Discharge Care*: greater than 30 min Quality Metrics Clinical Quality Measures [ No reported AMI, CVA or VTE this stay] Coding Level of Care Code Acute Chg [facility] note Diagnoses Pneumonia J18.9 Hypoxia R09.02 Acute exacerbation of chronic obstructive pulmonary disease J44.1 Stroke I63.9 Hallucinations R44.3 Throat cancer C14.0 Diabetes mellitus E11.9 Coronary artery disease I25.10
--- NOTE | 2022-01-26 13:27 | PC.OT ---
OT EVAL ATTEMPTED. PT DISCHARGED BEFORE OT EVAL OCCURED.
== END 2022-01-26 13:00 | disposition home or self-care (01) | DRG 190 ==
LOC: ER 13:46 → MEDSURG 01-26 08:13
PROVIDERS: Admitting Provider Internal Medicine; Emergency Provider Emergency Medicine; PCP Internal Medicine; Visit Provider Internal Medicine
DX: J44.0 Chronic obstructive pulmonary disease with (acute) lower respiratory infection (principal); J18.9 Pneumonia, unspecified organism; R44.3 Hallucinations, unspecified; J44.1 Chronic obstructive pulmonary disease with (acute) exacerbation; C11.1 Malignant neoplasm of posterior wall of nasopharynx; I25.10 Atherosclerotic heart disease of native coronary artery without angina pectoris; E11.9 Type 2 diabetes mellitus without complications; E78.5 Hyperlipidemia, unspecified; I10 Essential (primary) hypertension; F17.210 Nicotine dependence, cigarettes, uncomplicated; Z79.51 Long term (current) use of inhaled steroids; Z79.01 Long term (current) use of anticoagulants
CPT/HCPCS: 36415; 36416; 70450; 70496; 70498; 71045; 74176; 80053; 81001; 82962; 83605; 83735; 83880; 84145; 84443; 84484; 85025; 86140; 87040; 87086; 87635; 92610; 93005; 93306; 94640; 96365; 96367; 96372; 99285; J0696; J1100; J1815; J2543; J3475; J3490; J7626; Q9967

== ENCOUNTER 2022-02-20 08:00 | Oncology outpatient (recurring) (ONCR) | payer OTHER, MEDICARE, MEDICAID, SELFPAY ==
--- NOTE | 2022-02-01 09:39 | N.ONRAD NP_ITS ---
Radiation Oncology Consultation Patient Name: Chacorta Sigeel Date of : 1955 Date of Service: 02/01/2022 Attending Physician: Rahat Parham M.D. Chacorta Siegel was seen in consultation this morning of the [facility] for evaluation regarding head and neck radiotherapy in the management of a recently diagnosed tonsil cancer. The patient was evaluated at the [facility]'s Emergency Department in December for odynophagia. A CT scan of the neck (independently visualized in synapse) ordered on December 27, 2021 demonstrated irregular fluid collections within the bilateral sienna-tonsillar tissues measuring 4.1 cm x 2.4 cm x 2 cm and bilateral enhancing cervical lymphadenopathy. He was transferred to [facility] in [place], [place] for further management. A flexible laryngoscopy was performed by the on-call wildlife ecology professor. Significant findings included enlargement of the right tonsil with exudate. 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 A repeat neck CT scan described irregular mucosal thickening and enhancement of the oropharyngeal and hypopharyngeal mucosa involving the tonsils, glossotonsillar pillars, base of tongue, and inferior soft palate. Also reported were bilateral cervical lymphadenopathy within level II and level III lymph node stations. He was discharged with referral for definitive management. The patient was evaluated for definitive head and neck radiotherapy. I discussed with Mr. 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 I will order a PET scan to complete staging and have requested an otolaryngology consultation for surgical evaluation. If the patient elects definitive chemoradiotherapy, I would recommend a 7 week course of radiation therapy. Prior to beginning treatment, a radiotherapy planning CT scan with contrast will be acquired and co-registered to the patient's PET CT scan to delineate the gross target volumes. I reviewed the potential toxicities of head and neck radiotherapy. A dental evaluation has been requested. The patient has verbalized understanding and would like to proceed as advocated. The patient's medical treatment has been discussed with Celeste Justice M.D. Signed by: Dr. Rahat Parham 03/08/2022 1:18:34 PM
[2022-02-20 09:05] LABS: Basophils # 0.1 10^3/uL (0.0-0.1); Basophils % 0.4 %; Eosinophils # 0.2 10^3/uL (0.0-0.8); Eosinophils % 0.8 %; Hematocrit 40.5 % (42.0-52.0); Hemoglobin 12.7 g/dL (11.7-16.6); Lymphocytes # 2.9 10^3/uL (0.8-4.8); Mean Corpuscular HGB Conc 31.4 g/dL (30.0-36.0); Mean Corpuscular Volume 89.2 fl (80-94); Mean Platelet Volume 9.3 fL (7.4-10.4); Monocytes % 5.1 %; Neutrophils % 76.6 %; Nucleated Red Blood Cells % 0 %; Platelet Count 581 10^3/cmm (130-400); Red Blood Count 4.54 10^6/uL (4.1-5.3); Red Cell Distribution Width 13.9 % (12.1-15.1); White Blood Count 19.2 10^3/uL (4.0-10.0)
[2022-02-20 09:18] LABS: Alanine Aminotransferase 25 U/L (0-41); Alkaline Phosphatase 119 U/L (40-130); Aspartate Amino Transferase 27 U/L (0-40); Blood Urea Nitrogen 34 mg/dL (8-23); Calcium 10.4 mg/dL (8.5-10.5); Carbon Dioxide 25 mmol/L (22-29); Chloride 93 mmol/L (98-107); Globulin 4.4 g/dL (1.3-4.6); Glucose 123 mg/dL (65-115); Osmolality Calculated 287 mOsm/kg (285-295); Sodium 134 mmol/L (136-145); Total Bilirubin 0.2 mg/dL (0.15-1.2); Total Protein 7.4 g/dL (6.6-8.7)
[2022-02-20 09:22] LABS: Anion Gap 20.5 (5-19); Potassium 4.5 mmol/L (3.5-5.1)
[2022-02-20 11:00] VITALS: BP 76/50; PULSE 118; RESP 14; TEMP 35.7
--- NOTE | 2022-02-20 14:52 | PC.NURSE ---
pt BP still low, Dr. valentine wants patient sent to ER for evaluation and rule out of sepsis. PT agrees with plan, family notified, at bed side. IV fluids completed, disconnected. IV access left in place. REport called to charge nurse at ER. Pt placed in wheel chair and wheeled over to ER registration desk. patient checked in.
== END 2022-02-22 23:59 | disposition home or self-care (01) ==
PROVIDERS: Nurse Practitioner; PCP Internal Medicine; Visit Provider Radiology Radiation Oncology
DX: C09.8 Malignant neoplasm of overlapping sites of tonsil (principal); C77.8 Secondary and unspecified malignant neoplasm of lymph nodes of multiple regions; J43.9 Emphysema, unspecified; F17.210 Nicotine dependence, cigarettes, uncomplicated; Z99.81 Dependence on supplemental oxygen; E11.9 Type 2 diabetes mellitus without complications; Z79.4 Long term (current) use of insulin; J18.9 Pneumonia, unspecified organism; Z79.2 Long term (current) use of antibiotics; E86.0 Dehydration; Z79.899 Other long term (current) drug therapy
CPT/HCPCS: 36415; 80053; 85025; 96365; 99204; 99214; 99215

== ENCOUNTER 2022-02-20 11:42 | Inpatient (IN) | payer OTHER, MEDICARE, SELFPAY ==
[2022-02-20] VITALS (38 sets, daily range): BP systolic 75–140; BP diastolic 51–79; PULSE 56–120; RESP 13–116; TEMP 36.4–37; O2SAT 86–100; BMI 27.3; BMI 27.5
--- NOTE | 2022-02-20 11:55 | CT_ITS ---
WS: [id number] CT CHEST, ABDOMEN AND PELVIS WITH CONTRAST. HISTORY: sepsis TECHNIQUE: Contiguous 5 mm axial imaging performed through the chest, abdomen and pelvis with IV cont rast, oral contrast has not been provided. Coronal and sagittal reformats chest. Coronal and sagittal reformats through the abdomen and pelvis. All CT scans at [facility] use at least one of the se dose optimization techniques: automated exposure control; mA and/or kV adjustment per patient size (includes targeted exams where dose is matched to clinical indication); or iterative reconstruction. CONTRAST: Omnipaque 350; 95 mL IV. DLP: 1193.98 mGy.cm COMPARISON: 01/25/[address]: Mild pulmonary hyperinflation. Groundglass attenuation with mild tree-in-bud airspace disea se involving the LEFT upper lobe into the lingula. Similar findings to a lesser extent in the periphe ry of the LEFT lower lobe. No mass or focal nodule. Normal size pulmonary artery. Mild atherosclerosi s aorta. Heart is normal size. No hiatal hernia. No axillary, mediastinal or hilar adenopathy. Bilate ral gynecomastia. Abdomen CT: Cirrhotic appearance of the liver. No bile duct dilatation or mass. Mild gallbladder hydr ops with no wall thickening or adjacent inflammation. Normal common bile duct. Normal pancreas. Yolanda l size spleen with a few scattered granulomata. Calcification in the periphery of the spleen. No adre nal mass. Mild bilateral perinephric stranding with no obstruction. Neither ureter is dilated. Mild a therosclerosis aorta. Small amount of calcium at the origin of the celiac axis and SMA. No ascites or adenopathy. Stomach is moderately well distended with fluid. No small bowel obstruction or wall thickening. The a ppendix is normal. Numerous diverticula in the descending and sigmoid colon. Pelvic CT: No free fluid or adenopathy. Minimally distended urinary bladder. Mild heterogeneity withi n a nonenlarged prostate gland. No osteoblastic or osteolytic bone lesions. Healed rib fracture in the posterior lateral lower LEFT t horax. CT/CT chest abd pel w con* IMPRESSION: 1. Mixture of groundglass attenuation and tree-in-bud airspace disease LEFT up per lobe with lesser extension into the LEFT lower lobe. Consider consider endo bronchial pneumonia/pneumonitis and aspiration pneumonia. 2. Cirrhotic liver. 3. Distal colon diverticulosis without acute diverticulitis. 4. Normal appendix. 5. No renal obstruction.
--- NOTE | 2022-02-20 11:55 | CT_ITS ---
WS: [id number] CT NECK WITH CONTRAST HISTORY: sepsis, throat cancer TECHNIQUE: Contiguous 5 mm axial images are performed through the neck with intravenous contrast. Sag ittal and coronal reformats are also submitted. All CT scans at [facility] use at least one o f these dose optimization techniques: automated exposure control; mA and/or kV adjustment per patient size (includes targeted exams where dose is matched to clinical indication); or iterative reconstruc tion. CONTRAST: CONTRAST: Omnipaque 350; 75 mL IV. DLP: 1193.98 mGy.cm COMPARISON: 12/27/2021 Patient has a known large necrotic mass centered in the RIGHT peritonsillar bed. This mass extends fr om the RIGHT tongue base to involve the palatine and lingual tonsil inferiorly by 7.[address] and ju st above the level of the thyroid cartilage. Lobulated enhancing component in the periphery. There ar e cystic changes centrally. Mass extends across the midline at the level of the hypopharynx. Transver se diameter by 4.6 cm. Anterior posterior diameter 3.4 cm at its maximum. Tumor appears to extend int o the uvula and through the vallecula and the posterior oropharyngeal wall. Mass crosses the midline both anteriorly and posteriorly. Enlarged cervical chain lymph nodes bilaterally. These lymph nodes are hyperemic. The largest at leve l IIa on the RIGHT measures 1.4 cm transversely. There are additional hypervascular enlarged lymph no mirna with loss of the normal fatty slim bilaterally. No osseous abnormalities. Visualized portions of the skull base demonstrate no abnormalities. Orbits and globes are within norm al limits. No soft tissue masses. Small amount of mucus in the LEFT maxillary sinus. Lung apices are clear. CT/CT neck w con* [id number] IMPRESSION: 1. Necrotic soft tissue mass has been previously described centered in the RIG HT tonsillar bed and hypopharynx. Necrotic neoplasm is likely. Mass extends ove r a length of 7.3 cm beginning at the RIGHT tongue base. There is extension acr oss the midline with narrowing of the ifeanyi- pharynx. No significant improvement since 12/27/2021. 2. Bilateral cervical chain lymphadenopathy.
--- NOTE | 2022-02-20 11:56 | XR_ITS ---
WS: [id number] Exam: XR chest 1V portable [id number] Date/Time of Exam: 02/20/2022 11:59 AM Reason For Exam: sepsis Comparison 01/25/2022. The lungs are fully expanded. Areas of chronic plaque atelectasis in the bilateral bases. Normal card iomediastinal silhouette. Regional bony elements are intact. XR/XR chest 1V portable [id number] IMPRESSION: 1. No acute cardiopulmonary finding. No change. 2. Areas of chronic mild plaque atelectasis in the bilateral lung bases
--- NOTE | 2022-02-20 11:58 | ED_ITS ---
HPI - General Adult General: Chief complaint: General Medical Stated complaint: Possible hypotension/sepis eval Time Seen by Provider: 02/20/22 11:49 History of Present Illness: 66-year-old male with a history of throat cancer who is not currently on chemo presents due to hypotension and concern for sepsis. Last week he was diagnosed with pneumonia and has been on oral antibiotics since then. Today during an oncology appointment his blood pressure was in the 70s over 50s and he was sent to the ER. Does report some sore throat which she has had chronically due to his throat cancer and is not changed today. Reports some cough and abdominal pain that is diffuse. Denies nausea vomiting diarrhea or constipation. Denies headache or neck pain. Denies rash or fever. Normally blood pressures are normotensive. Review of Systems Narrative: - CONSTITUTIONAL: Denies weight loss, fever and chills. - HEENT: As above - RESPIRATORY: As above - CV: Denies palpitations and CP. - GI: As above - : Denies dysuria and urinary frequency. - MSK: Denies myalgia and joint pain. - SKIN: Denies rash and pruritus. - NEUROLOGICAL: Denies headache, weakness, numbness and syncope. - PSYCHIATRIC: Denies suicidal ideation PFSH ED PFSH: Medical History Acute exacerbation of chronic obstructive pulmonary disease COPD (chronic obstructive pulmonary disease) Coronary artery disease Diabetes mellitus Hyperlipidemia Hypertension Squamous cell carcinoma of right tonsil Stroke Throat cancer Surgical History History of surgery on arm History of surgery on lower extremity Family History Mother Cancer lung Father Stroke Sister Cancer lung Other Bleeding disorder Clotting disorder Diabetes Hyperlipidemia Denies family history of CAD (coronary artery disease) Dementia Psychiatric illness Chronic kidney disease (CKD) Suicide Anesthesia complication Lung disease Hypertension Social History Smoking and tobacco status: current every day smoker (1 ppd, smoked since 1971) cigarettes Packs smoked per day: 1.5 Alcohol intake: never Physical Exam Narrative: EXAM NARRATIVE: - GENERAL: Alert and oriented x 3. No acute distress. Well-nourished. - EYES: EOMI. Anicteric. - HENT: Atraumatic, no C-spine tenderness. Moist mucous membranes. No scleral icterus. No cervical lymphadenopathy. Uvula is midline, no stridor, no induration under the tongue around neck, no signs of Rocky's angina. - LUNGS: Clear to auscultation bilaterally. No accessory muscle use. Equal lung sounds bilaterally. No respiratory distress. - CARDIOVASCULAR: Regular rate and rhythm. No murmur. No JVD. - ABDOMEN: Soft, mild diffuse tenderness, non-distended. Negative CVA tenderness bilaterally, no rebound or guarding, negative Madrid sign. No palpable masses. - EXTREMITIES: No edema. Non-tender. - SKIN: No rashes or lesions. Warm. - NEUROLOGIC: No meningismus or focal neurological deficits. CN II-XII grossly intact. - PSYCHIATRIC: Cooperative. Appropriate mood and affect. Course Vital Signs: Vital signs: Vital Signs Temperature 98.2 F 02/20/22 11:52 Pulse Rate 108 H 02/20/22 14:06 Respiratory Rate 15 02/20/22 14:06 Blood Pressure 81/62 02/20/22 14:06 Pulse Oximetry 94 02/20/22 14:06 Oxygen Delivery Me thod 02/20/22 11:52 MDM - General Adult Medical Decision Making 66-year-old presents due to hypotension. Patient does have a history of cancer but is not on chemotherapy and recently was diagnosed with pneumonia and had outpatient antibiotics. Upon arrival he is hypotensive and tachycardic. Sepsis order set initiated. Does complain of mild sore throat but CT scan does not reveal significant change compared to previous however there is a necrotic appearing lesion. Imaging of the chest abdomen pelvis is concerning for possible pneumonia. Remainder of lab work and imaging reviewed. Discussed with hospitalist and they agreed patient would benefit from admission. Patient admitted in stable condition. Further evaluation management per hospitalist team. Lab Data : 02/20/22 12:15 02/20/22 12:15 Radiology Impressions Chest/Abdomen/Pelvis CT 02/20/22 11:55 IMPRESSION: 1. Mixture of groundglass attenuation and tree-in-bud airspace disease LEFT upper lobe with lesser extension into the LEFT lower lobe. Consider consider endobronchial pneumonia/pneumonitis and aspiration pneumonia. 2. Cirrhotic liver. 3. Distal colon diverticulosis without acute diverticulitis. 4. Normal appendix. 5. No renal obstruction. Neck CT 02/20/22 11:55 IMPRESSION: 1. Necrotic soft tissue mass has been previously described centered in the RIGHT tonsillar bed and hypopharynx. Necrotic neoplasm is likely. Mass extends over a length of 7.3 cm beginning at the RIGHT tongue base. There is extension across the midline with narrowing of the ifeanyi- pharynx. No significant improvement since 12/27/2021. 2. Bilateral cervical chain lymphadenopathy. Chest X-Ray 02/20/22 11:56 IMPRESSION: 1. No acute cardiopulmonary finding. No change. 2. Areas of chronic mild plaque atelectasis in the bilateral lung bases Laboratory Results WBC 21.9 10^3/uL (4.0-10.0) H 02/20/22 12:15 RBC 4.42 10^6/uL (4.1-5.3) 02/20/22 12:15 Hgb 12.5 g/dL (11.7-16.6) 02/20/22 12:15 Hct 39.1 % (42.0-52.0) L 02/20/22 12:15 MCV 88.5 fl (80-94) 02/20/22 12:15 MCH 28.3 pg (28.0-34.0) 02/20/22 12:15 MCHC 32.0 g/dL (30.0-36.0) 02/20/22 12:15 RDW 14.0 % (12.1-15.1) 02/20/22 12:15 Plt Count 539 10^3/cmm (130-400) H 02/20/22 12:15 MPV 8.8 fL (7.4-10.4) 02/20/22 12:15 Neut % (Auto) 82.3 % 02/20/22 12:15 Lymph % (Auto) 8.7 % 02/20/22 12:15 Har[place]on % (Auto) 5.7 % 02/20/22 12:15 Eos % (Auto) 0.3 % 02/20/22 12:15 Baso % (Auto) 0.3 % 02/20/22 12:15 Neut # (Auto) 18.01 10^3/uL (1.8-7.7) H 02/20/22 12:15 Lymph # (Auto) 1.9 10^3/uL (0.8-4.8) 02/20/22 12:15 Haralson # (Auto) 1.3 10^3/uL (0.2-0.9) H 02/20/22 12:15 Eos # (Auto) 0.1 10^3/uL (0.0-0.8) 02/20/22 12:15 Baso # (Auto) 0.1 10^3/uL (0.0-0.1) 02/20/22 12:15 Nucleated RBC % (auto) 0 % 02/20/22 12:15 Nucleated RBCs # 0.0 /100WBC 02/20/22 12:15 Sodium 133 mmol/L (136-145) L 02/20/22 12:15 Potassium 4.8 mmol/L (3.5-5.1) 02/20/22 12:15 Chloride 93 mmol/L (98-107) L 02/20/22 12:15 Carbon Dioxide 27 mmol/L (22-29) 02/20/22 12:15 Anion Gap 17.8 (5-19) 02/20/22 12:15 BUN 35 mg/dL (8-23) H 02/20/22 12:15 Creatinine 1.4 mg/dL (0.7-1.2) H 02/20/22 12:15 GFR Calculation 50.9 mL/min (90-130) L 02/20/22 12:15 Glucose 101 mg/dL (65-115) 02/20/22 12:15 Calculated Osmolality 284 mOsm/kg (285-295) L 02/20/22 12:15 Lactate 2.8 mmol/L (0.5-2.2) H 02/20/22 12:15 Calcium 10.2 mg/dL (8.5-10.5) 02/20/22 12:15 Magnesium 1.9 mg/dL (1.7-2.3) 02/20/22 12:15 Total Bilirubin 0.2 mg/dL (0.15-1.2) 02/20/22 12:15 AST 28 U/L (0-40) 02/20/22 12:15 ALT 25 U/L (0-41) 02/20/22 12:15 Alkaline Phosphatase 121 U/L (40-130) 02/20/22 12:15 Troponin T Baseline 25 ng/L (0-15) H 02/20/22 12:15 Troponin T 120 Minute 20.71 ng/L (0-15) H 02/20/22 14:10 Delta Troponin T -4.29 ABS# (0-10) L 02/20/22 14:10 Total Protein 7.3 g/dL (6.6-8.7) 02/20/22 12:15 Albumin 3.0 g/dL (3.5-5.2) L 02/20/22 12:15 Globulin 4.3 g/dL (1.3-4.6) 02/20/22 12:15 Lipase 23 U/L (13-60) 02/20/22 12:15 Amorphous Sediment Not Reportable 02/20/22 14:56 Coronavirus 229E (PCR) Not detected (NOT DETECT) 02/20/22 12:15 SARS-CoV-2 (PCR) Not detected (NOT DETECT) 02/20/22 12:15 EKG Data EKG 1: Computer generated interpretation: Chest/Abdomen/Pelvis CT 02/20/22 11:55 IMPRESSION: 1. Mixture of groundglass attenuation and tree-in-bud airspace disease LEFT upper lobe with lesser extension into the LEFT lower lobe. Consider consider endobronchial pneumonia/pneumonitis and aspiration pneumonia. 2. Cirrhotic liver. 3. Distal colon diverticulosis without acute diverticulitis. 4. Normal appendix. 5. No renal obstruction. Neck CT 02/20/22 11:55 IMPRESSION: 1. Necrotic soft tissue mass has been previously described centered in the RIGHT tonsillar bed and hypopharynx. Necrotic neoplasm is likely. Mass extends over a length of 7.3 cm beginning at the RIGHT tongue base. There is extension across the midline with narrowing of the ifeanyi- pharynx. No significant improvement since 12/27/2021. 2. Bilateral cervical chain lymphadenopathy. Chest X-Ray 02/20/22 11:56 IMPRESSION: 1. No acute cardiopulmonary finding. No change. 2. Areas of chronic mild plaque atelectasis in the bilateral lung bases Other EKG comments: Sinus tachycardia, rate of 120, no sign of acute ischemia or other acute abnormality. Critical Care Time Critical Care Time: Critical Care Time: Yes Total Critical Care Time: 35 Attestation: This case had a high probability of a clinically significant, sudden, or life threatening deterioration of this patient's condition which required my full and direct attention, intervention and personal management. Discharge Plan Discharge Condition: Stable Prescriptions: No Action oxycodone-acetaminophen [Percocet] 5-325 mg tablet 1 - 2 tab PO .q4-6hr PRN (Reason: pain) 30 Days Qty: 60 0RF Lidocaine Viscous 2 % solution 5 ml mucous membrane Q6H PRN (Reason: Pain) Qty: 100 0RF albuterol sulfate 90 mcg/actuation HFA aerosol inhaler 2 inh INHALATION Q4H PRN (Reason: shortness of breath or wheezing) Qty: 18 0RF cyanocobalamin (vitamin B-12) [Vitamin B-12] 1,000 mcg Tablet 1,000 mcg PO QAM metformin 1,000 mg Tablet 500 mg PO QAM rosuvastatin [Crestor] 20 mg Tablet 10 mg PO QAM cholecalciferol (vitamin D3) [Vitamin D3] 50 mcg (2,000 unit) Tablet 2,000 unit PO QPM Eliquis 5 mg Tablet 5 mg PO BID Spiriva Respimat 2.5 mcg/actuation Mist 2 inh INHALATION QAM mometasone-formoterol 200-5 mcg/actuation Hfa Aerosol Inhaler 2 puff INHALATION BID polyethylene glycol 3350 [Miralax] 17 gram Powder In Packet 17 g PO DAILY PRN (Reason: Constipation) aspirin 81 mg Tablet,Delayed Release (Dr/Ec) 81 mg PO DAILY Qty: 30 0RF diltiazem HCl 360 mg Capsule,Extended Release 24 Hr 360 mg PO DAILY lisinopril 40 mg Tablet 40 mg PO DAILY cyclobenzaprine 10 mg Tablet 10 mg PO TID PRN (Reason: Muscle Spasm) nicotine 14 mg/24 hr Patch 24 Hour 1 patch TRANSDERMAL Q24H nicotine 7 mg/24 hr Patch 24 Hour 1 patch TRANSDERMAL Q24H nicotine (polacrilex) 4 mg Mini Lozenge 4 mg BUCCAL Q4H PRN (Reason: Smoking Cessation) Referrals: Felton Edgar [Primary Care Provider] - Coding Level of Care Code ED Stretching Machine Tender Frame for Bernice Day
--- NOTE | 2022-02-20 12:19 | ECG_ITS ---
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 Measurements Intervals [place] Rate: 120 P: 46 ID: 144 QRS: 240 QRSD: 86 T: 46 QT: 311 QTc: 440 Interpretive Statements SINUS TACHYCARDIA POSSIBLE RIGHT VENTRICULAR HYPERTROPHY [SOME/ALL OF: PROMINENT R IN V1, LATE TRANSITION, RAD, TORI, SSS] ANTERIOR MYOCARDIAL INFARCTION , OF INDETERMINATE AGE [40+ ms Q WAVE AND/OR ST/T ABNORMALITY IN V3/V4] Compared to ECG 01/25/2022 15:55:02 Sinus rhythm no longer present Myocardial infarct finding still present Electronically Signed On 02-20-2022 14:00:57 CDT by Matthias Banerjee M.D. [id number]
[2022-02-20] MEDS: sodium chloride 0.9% 1,000 ML 999 ML IV ×2 (12:21→16:20)
[2022-02-20 12:24] LABS: Basophils # 0.1 10^3/uL (0.0-0.1); Basophils % 0.3 %; Eosinophils # 0.1 10^3/uL (0.0-0.8); Eosinophils % 0.3 %; Hematocrit 39.1 % (42.0-52.0); Hemoglobin 12.5 g/dL (11.7-16.6); Lymphocytes # 1.9 10^3/uL (0.8-4.8); Lymphocytes % 8.7 %; Mean Corpuscular Hemoglobin 28.3 pg (28.0-34.0); Mean Corpuscular Volume 88.5 fl (80-94); Mean Platelet Volume 8.8 fL (7.4-10.4); Monocytes # 1.3 10^3/uL (0.2-0.9); Monocytes % 5.7 %; Neutrophils # 18.01 10^3/uL (1.8-7.7); Neutrophils % 82.3 %; Nucleated Red Blood Cells % 0 %; Platelet Count 539 10^3/cmm (130-400); Red Blood Count 4.42 10^6/uL (4.1-5.3); White Blood Count 21.9 10^3/uL (4.0-10.0)
[2022-02-20 12:41] LABS: Troponin(5th) Baseline 25 ng/L (0-15)
[2022-02-20 12:42] LABS: Alanine Aminotransferase 25 U/L (0-41); Alkaline Phosphatase 121 U/L (40-130); Anion Gap 17.8 (5-19); Aspartate Amino Transferase 28 U/L (0-40); Blood Urea Nitrogen 35 mg/dL (8-23); Calcium 10.2 mg/dL (8.5-10.5); Carbon Dioxide 27 mmol/L (22-29); Chloride 93 mmol/L (98-107); Globulin 4.3 g/dL (1.3-4.6); Glomerular Filtration Rate 50.9 mL/min (90-130); Glucose 101 mg/dL (65-115); Lactate (Lactic Acid level) 2.8 mmol/L (0.5-2.2); Lipase 23 U/L (13-60); Magnesium 1.9 mg/dL (1.7-2.3); Osmolality Calculated 284 mOsm/kg (285-295); Potassium 4.8 mmol/L (3.5-5.1); Sodium 133 mmol/L (136-145); Total Bilirubin 0.2 mg/dL (0.15-1.2); Total Protein 7.3 g/dL (6.6-8.7)
[2022-02-20] MEDS: iohexol 350 mg/mL 100 mL Btl IV ×2 (12:59→13:04)
[2022-02-20] MEDS: cefepime 2,000 MG in sodium chloride 0.9% (plus) 50 ML 100 MG IV (13:15)
[2022-02-20] MEDS: vancomycin 1,500 MG/300 ML PIGGYBACK 250 MG IV (13:29)
--- NOTE | 2022-02-20 13:57 | ECG_ITS ---
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 Measurements Intervals [place] Rate: 112 P: 49 OR: 148 QRS: -76 QRSD: 94 T: 56 QT: 326 QTc: 446 Interpretive Statements SINUS TACHYCARDIA LEFT AXIS DEVIATION [QRS AXIS < -30] ANTERIOR MYOCARDIAL INFARCTION , OF INDETERMINATE AGE [40+ ms Q WAVE AND/OR ST/T ABNORMALITY IN V3/V4] Compared to ECG 02/20/2022 12:19:10 Left-axis deviation now present Atrial abnormality no longer present Myocardial infarct finding still present Electronically Signed On 02-21-2022 16:35:22 CDT by Livan Napier M.D. [id number]
--- NOTE | 2022-02-20 13:59 | PC.NURSE ---
PY PLACED ON CONTINUOUS NIBP, SPO2, AND CM
[2022-02-20 14:35] LABS: Adenovirus Not Detected (NOT DETECT); Chlamydia Pneumoniae Not Detected (NOT DETECT); Coronavirus 229E,HKU1,NL63,OC4 Not Detected (NOT DETECT); Human Metapneumovirus Not Detected (NOT DETECT); Human Rhinovirus/Enterovirus Not Detected (NOT DETECT); Influenza A Not Detected (NOT DETECT); Influenza A H1 Not Detected (NOT DETECT); Influenza A H1-2009 Not Detected (NOT DETECT); Influenza A H3 Not Detected (NOT DETECT); Influenza B Not Detected (NOT DETECT); Mycoplasma Pneumoniae Not Detected (NOT DETECT); Parainfluenza Virus Type 1 Not Detected (NOT DETECT); Parainfluenza Virus Type 2 Not Detected (NOT DETECT); Parainfluenza Virus Type 3 Not Detected (NOT DETECT); Parainfluenza Virus Type 4 Not Detected (NOT DETECT); Respiratory Syncytial Virus A Not Detected (NOT DETECT); Respiratory Syncytial Virus B Not Detected (NOT DETECT); SARS-COV-2 Not Detected (NOT DETECT)
[2022-02-20 15:31] LABS: Troponin 5 2HR 20.71 ng/L (0-15)
[2022-02-20 15:32] LABS: Troponin 5 2HR Delta -4.29 ABS# (0-10)
[2022-02-20 15:54] LABS: Add Urine Culture? Yes; Amorphous Sediment Urine 1+ /hpf; Bacteria Urine 1+ /hpf; Bilirubin Urine Neg (Negative); Blood Urine 3+ (Negative); Glucose Urine UA Norm (Normal); Ketones Urine Negative (Negative); Leukocyte Esterase Urine Trace (Negative); Mucus Urine TRACE /hpf; Nitrate Urine Negative (Negative); Protein Urine 1+ (Negative); Specific Gravity, Urine 1.005 (1.005-1.030); Squamous Epithelial Cell Urine 0-4 /hpf (0-5); Urine Appearance Hazy (CLEAR); Urine Color Yellow (Yellow); Urobilinogen Urine Norm (Negative); WBC Urine >100 /hpf (0-5); pH Urine 5 (5-7)
[2022-02-20] MEDS: lidocaine 2% viscous 15 mL UDC PO (16:20)
[2022-02-20 16:25] LABS: Cortisol Random 19.72 ug/dL (2.47-19.5)
--- NOTE | 2022-02-20 17:17 | P.HP_ITS ---
Providers/Chief Complaint Primary Care Provider: Felton Edgar Chief Complaint: Possible hypotension/sepis eval History of Present Illness Pleasant 66-year-old gentleman with recently diagnosed tonsil cancer, currently in process of evaluation by oncology, radiation oncology, was sent over to ER for evaluation from oncology clinic where he was noted to be hypotensive, blood pressures in the 70s over 50s. He states that he has been feeling out of sorts in the last several days. He has been coughing with productive cough. Denies chest pain. Has been having difficult time eating, with dysphagia has not been able to take in solids. Has been drinking ensures. Occasionally coughs with food or drink, not commonly. Some chills at home, no fever. Has been having some dysuria. In ER noted again hypotensive, as low as 76/50. Received fluid boluses. Afebrile with leukocytosis 21.9, predominantly neutrophilic. With CHRIS, creatinine 1.4, lactic acidosis 2.8. Chest x-ray nonacute, areas of chronic mild plaque atelectasis and bilateral lower lungs. CT of the neck with noted necrotic soft tissue mass previously described centered in the right tonsillar bed and hypopharynx. Necrotic neoplasm likely. Mass extends over a length of 7.3 cm beginning in the right tongue base. There is extension across the midline with narrowing of the oropharynx. No significant improvement since 12/27/2021. Bilateral cervical chain lymphadenopathy. CT chest abdomen pelvis with contrast with noted mixture of groundglass attenuation and tree-in-bud airspace disease left upper lobe with lesser extension into the left lower lobe. Consider endobronchial pneumonia/pneumonitis and aspiration pneumonia. Cirrhotic liver. Distal colon diverticulosis without diverticulitis. Normal appendix. No renal obstruction. UA with 5-10 RBC, more than 100 WBC, 0-4 squamous Pelo cells. 1+ bacteria. Negative nitrate. Negative COVID-19 PCR. In ER blood cultures collected. He is started on cefepime and vancomycin. She asked me if he can go home, but in discussion with him and his son of the findings so far he is agreeable to stay for further assessment and treatment. Review of Systems Const: Reports: chills, change in weight, malaise and other (Poor oral intake due to dysphagia); Denies: fever(s) Eyes: Denies: change in vision, eye discomfort or eye redness ENMT: Denies: throat pain, oral sores or ear or mastoid pain Card: Denies: chest pain, edema, pre-syncope or dyspnea on exertion Resp: Denies: dyspnea, productive cough, change in phlegm color or hemoptysis GI: Denies: abdominal pain, nausea, vomiting, diarrhea, constipation, hematochezia or melena : Denies: flank pain, difficulty urinating, urinary frequency or hematuria Musc: Denies: back pain, joint swelling or joint redness Skin/Breast: Denies: rash or new lesions Neuro: Reports: headache(s); Denies: numbness in extremities, weakness in extremities, dizziness, confusion or seizure-like activity Endo: Denies: polyuria or polydipsia Paco/Lymph: Denies: easy bleeding or tender lymph nodes All/Imm: Denies: urticaria or tongue swelling Medications/Allergies Home Medications Medication Instructions Recorded Confirmed Last Taken Type albuterol sulfate 90 mcg/actuation 2 inh inhalation Q4H PRN shortness 11/30/21 02/20/22 Unknown Rx aerosol inhaler of breath or wheezing #18 grams apixaban 5 mg tablet (Eliquis) 5 mg PO BID 01/25/22 02/20/22 02/20/22 History cholecalciferol (vitamin D3) 50 2,000 unit PO QPM 01/25/22 02/20/22 02/20/22 History mcg (2,000 unit) tablet (Vitamin D3) cyanocobalamin (vitamin B-12) 1,000 mcg PO QAM 01/25/22 02/20/22 02/20/22 History 1,000 mcg tablet (Vitamin B-12) metformin 1,000 mg tablet 500 mg PO QAM 01/25/22 02/20/22 02/20/22 History mometasone-formoterol HFA 200 2 puff inhalation BID 01/25/22 02/20/22 02/20/22 History mcg-5 mcg/actuation aerosol inhaler polyethylene glycol 3350 17 gram 17 g PO DAILY PRN Constipation 01/25/22 02/20/22 Unknown History oral powder packet (Miralax) rosuvastatin 20 mg tablet (Crestor) 10 mg PO QAM 01/25/22 02/20/22 02/20/22 History tiotropium bromide 2.5 2 inh inhalation QAM 01/25/22 02/20/22 02/20/22 History mcg/actuation mist for inhalation (Spiriva Respimat) aspirin 81 mg tablet,delayed 81 mg PO DAILY #30 tabs 01/26/22 02/20/22 02/20/22 Rx release lidocaine HCl 2 % mucosal solution 5 ml mucous membrane Q6H PRN Pain 02/03/22 02/20/22 Unknown Rx (Lidocaine Viscous) #100 mL cyclobenzaprine 10 mg tablet 10 mg PO TID PRN Muscle Spasm 02/20/22 02/20/22 Unknown History diltiazem HCl 360 mg capsule,24 360 mg PO DAILY 02/20/22 02/20/22 02/16/22 History hr,extended release lisinopril 40 mg tablet 40 mg PO DAILY 02/20/22 02/20/22 02/16/22 History nicotine (polacrilex) 4 mg buccal 4 mg buccal Q4H PRN Smoking 02/20/22 02/20/22 Unknown History mini lozenge Cessation nicotine 14 mg/24 hr daily 1 patch transdermal Q24H 02/20/22 02/20/22 Unknown History transdermal patch nicotine 7 mg/24 hr daily 1 patch transdermal Q24H 02/20/22 02/20/22 Unknown History transdermal patch oxycodone-acetaminophen 5 mg-325 1 - 2 tab PO .q4-6hr PRN pain 30 02/20/22 02/20/22 Unknown Rx mg tablet (Percocet) days #60 tabs Allergies Allergy/AdvReac Type Severity Reaction Status Date / Time No Known Allergies Allergy Verified 02/20/22 12:23 PFSH Acute PFSH: Medical History (Updated 02/20/22 @ 18:11 by Gianfranco Mendez MD) Acute exacerbation of chronic obstructive pulmonary disease COPD (chronic obstructive pulmonary disease) Coronary artery disease Diabetes mellitus Hyperlipidemia Hypertension Squamous cell carcinoma of right tonsil Stroke Throat cancer Surgical History (Updated 02/20/22 @ 18:11 by Gianfranco Mendez MD) History of heart artery stent 1996 History of surgery on arm History of surgery on lower extremity Family History Mother Cancer lung Father Stroke Sister Cancer lung Other Bleeding disorder Clotting disorder Diabetes Hyperlipidemia Denies family history of CAD (coronary artery disease) Dementia Psychiatric illness Chronic kidney disease (CKD) Suicide Anesthesia complication Lung disease Hypertension Social History Smoking and tobacco status: current every day smoker (1 ppd, smoked since 1971) cigarettes Packs smoked per day: 1.5 Alcohol intake: never Lives independently: Yes Household members: family Vitals/I&O/Wt Last Vital Signs Temp 98.2 F 02/20/22 11:52 Pulse 110 H 02/20/22 16:00 Resp 21 H 02/20/22 16:00 BP 114/62 02/20/22 16:00 Pulse Ox 93 02/20/22 16:00 O2 Del Method 02/20/22 16:00 02/20/22 02/20/22 02/20/22 06:59 14:59 22:59 Intake Total 1350 / 1350 Balance 1350 / 1350 Weight last 48 hrs Weight 74.389 kg Physical Exam Narrative: Son at bedside Const: COMMON NORMALS: patient oriented x3 and alert GENERAL APPEARANCE: cooperative ORIENTATION/CONSCIOUSNESS: Yes awake OTHER: COCOPAH HENMT: COMMON NORMALS: oropharynx normal Neck/C-Spine: COMMON NORMALS: no JVD Resp: COMMON NORMALS: normal respiratory effort and clear to auscultation bilaterally AUSCULTATION: clear to auscultation bilaterally Cardio: COMMON NORMALS: no JVD, regular rhythm, S1 normal heart sound present, S2 normal heart sound present and No murmurs present (Cardio) RHYTHM: regular rhythm HEART SOUNDS: S1 normal heart sound present and S2 normal heart sound present GI: COMMON NORMALS: Normal to inspection, nondistended, normoactive bowel sounds present, Soft to palpation and non-tender PALPATION: Yes Soft to palpation Extremity: COMMON NORMALS: no joint enlargement and no pedal edema Neuro: COMMON NORMALS: patient oriented x3 and moves all extremities SENSORIUM/ORIENTATION: Yes alert Skin: COMMON NORMALS: no rashes or lesions noted GENERAL SKIN EXAM: no rashes or lesions noted Data : 02/20/22 12:15 02/20/22 12:15 Micro: Microbiology 02/20/22 12:27 Blood Culture - Preliminary Blood SPECIMEN COLLECTED 02/20/22 12:27 Blood Culture - Preliminary Blood SPECIMEN COLLECTED A&P Assessment and plan (1) Pneumonia: Pneumonia, possible sepsis, leukocytosis 12.9, tachycardia 110. Hypotension. Lactic acidosis 2.8. Endorgan injury with CHRIS creatinine 1.4. With Continue cefepime, vancomycin. Follow-up blood culture. Follow-up urine culture. Collect sputum culture. MRSA PCR. COVID-19 PCR negative. Possibility of component of aspiration pneumonia, intermittent cough with food/drink, possible aspiration pneumonia on imaging. We will request ST evalua tion as well. Status: Acute (2) UTI (urinary tract infection): Continue cefepime. Follow-up urine culture. No sign of obstructive uropathy on CT. Status: Acute (3) Hypotension: Hypotensive at oncology clinic and on presentation here. Possibly septic shock. Did respond to initial fluid challenge. Blood pressure improved. Has been endorsing orthopnea as well. We will keep fluid resuscitation conservative. He states he has not been on his blood pressure medications, diltiazem, lisinopril for a while. Possible contribution of hypovolemia due to poor oral intake. Serum cortisol level requested. Status: Acute (4) Dysphagia: Has been having difficulty eating solids. Has had poor oral intake due to this. ST evaluation. For liquid diet. Protein shakes. Status: Acute (5) Squamous cell carcinoma of right tonsil: Pending additional evaluation by oncology. Status: Acute Plan Incidentally noted liver cirrhosis: Will need follow-up. COPD: Currently does not appear exacerbation CAD DM2 HLD HTN History of CVA Smoking addiction: Nicotine replacement Attestations Medical Necessity Statement*: Admission of over 2 midnights anticipated for assessment of management of possible sepsis, possible septic shock, pneumonia, dysphagia and gentleman with tonsil cancer, UTI Coding Level of Care Code Acute Applications Engineer Manufacturing for [facility] Fwd Exam Comprehensive Diagnoses Pneumonia J18.9 UTI (urinary tract infection) N39.0 Hypotension I95.9 Dysphagia R13.10 Squamous cell carcinoma of right tonsil C09.9
--- NOTE | 2022-02-20 17:55 | ECG_ITS ---
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 Measurements Intervals [place] Rate: 102 P: 28 OR: 152 QRS: 236 QRSD: 96 T: 44 QT: 326 QTc: 425 Interpretive Statements SINUS TACHYCARDIA INDETERMINATE AXIS POSSIBLE INFERIOR MYOCARDIAL INFARCTION , PROBABLY OLD [30 ms Q WAVE IN II/aVF] ANTEROSEPTAL MYOCARDIAL INFARCTION , OF INDETERMINATE AGE [40+ ms Q WAVE IN V1-V4] Compared to ECG 02/20/2022 14:59:48 Indeterminate axis now present Left-axis deviation no longer present Myocardial infarct finding still present Electronically Signed On 02-21-2022 16:34:28 CDT by Livan Napier M.D. [id number]
[2022-02-20 18:43] LABS: Troponin 5 6HR 21.61 ng/L (0-15)
[2022-02-20 18:44] LABS: Troponin 5 6HR Delta -3.39 ng/L (0-12)
--- NOTE | 2022-02-20 20:13 | PC.NURSE ---
Antigen not completed secondary to pt having PCR done at noon today. Those have been resulted. Spoke with ED who said no need to do antigen if PCR already completed.
--- NOTE | 2022-02-20 21:55 | PC.PHAR ---
Vancomycin is dosed at 1250mg IVPB every 24 hours to produce a predicted trough level of 14.16 (population based pharmacokinetic analysis). A trough level has been ordered from the lab to be obtained before the fourth dose to confirm and adjust if needed.
[2022-02-20] MEDS: nicotine 14 mg Patch 1 PATCH TRANSDERMA (22:39)
[2022-02-20] MEDS: pantoprazole 40 mg SDV IVP (22:39)
[2022-02-20] MEDS: acetaminophen 325 mg Tablet 650 MG PO (22:42)
[2022-02-20 23:22] LABS: Glucose Point of Care 104 mg/dL (70-110)
[2022-02-21] VITALS (74 sets, daily range): BP systolic 85–150; BP diastolic 49–104; PULSE 55–133; RESP 14–34; TEMP 36.6–36.8; O2SAT 81–97; BMI 27.8
[2022-02-21] MEDS: cefepime 2,000 MG in sodium chloride 0.9% (plus) 50 ML 100 MG IV ×3 (00:57→22:58)
[2022-02-21 04:13] LABS: Basophils # 0.1 10^3/uL (0.0-0.1); Basophils % 0.4 %; Eosinophils # 0.3 10^3/uL (0.0-0.8); Eosinophils % 1.6 %; Hematocrit 33.1 % (42.0-52.0); Hemoglobin 10.3 g/dL (11.7-16.6); Mean Corpuscular HGB Conc 31.1 g/dL (30.0-36.0); Mean Corpuscular Hemoglobin 28.1 pg (28.0-34.0); Mean Corpuscular Volume 90.4 fl (80-94); Mean Platelet Volume 9.2 fL (7.4-10.4); Monocytes # 0.9 10^3/uL (0.2-0.9); Monocytes % 5.8 %; Neutrophils # 12.05 10^3/uL (1.8-7.7); Nucleated Red Blood Cells % 0 %; Platelet Count 484 10^3/cmm (130-400); Red Blood Count 3.66 10^6/uL (4.1-5.3); Red Cell Distribution Width 14.1 % (12.1-15.1); White Blood Count 15.6 10^3/uL (4.0-10.0)
[2022-02-21 04:29] LABS: Alanine Aminotransferase 20 U/L (0-41); Albumin Level 2.6 g/dL (3.5-5.2); Alkaline Phosphatase 102 U/L (40-130); Anion Gap 15.1 (5-19); Aspartate Amino Transferase 21 U/L (0-40); Blood Urea Nitrogen 26 mg/dL (8-23); Calcium 9.4 mg/dL (8.5-10.5); Carbon Dioxide 23 mmol/L (22-29); Chloride 102 mmol/L (98-107); Globulin 3.7 g/dL (1.3-4.6); Glucose 95 mg/dL (65-115); Osmolality Calculated 287 mOsm/kg (285-295); Potassium 4.1 mmol/L (3.5-5.1); Sodium 136 mmol/L (136-145); Total Bilirubin 0.2 mg/dL (0.15-1.2); Total Protein 6.3 g/dL (6.6-8.7)
--- NOTE | 2022-02-21 05:21 | ECG_ITS ---
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 Measurements Intervals Walker Rate: 105 P: 49 NE: 163 QRS: 206 QRSD: 88 T: 28 QT: 317 QTc: 420 Interpretive Statements SINUS TACHYCARDIA POSSIBLE RIGHT VENTRICULAR HYPERTROPHY [SOME/ALL OF: PROMINENT R IN V1, LATE TRANSITION, RAD, TORI, SSS] INFERIOR MYOCARDIAL INFARCTION , PROBABLY OLD [40+ ms Q WAVE AND/OR ST/T ABNORMALITY IN II/aVF] ANTEROSEPTAL MYOCARDIAL INFARCTION , OF INDETERMINATE AGE [40+ ms Q WAVE IN V1-V4] Compared to ECG 02/20/2022 17:55:32 Indeterminate axis no longer present Myocardial infarct finding still present Electronically Signed On 02-21-2022 16:26:51 CDT by Livan Napier M.D. [id number]
[2022-02-21] MEDS: atorvastatin 40 mg Tablet PO (05:33)
[2022-02-21 05:45] LABS: Glucose Point of Care 100 mg/dL (70-110)
[2022-02-21] MEDS: apixaban 5 mg Tablet PO ×2 (08:32→17:22)
[2022-02-21] MEDS: aspirin 81 mg EC Tablet PO (08:32)
--- NOTE | 2022-02-21 10:22 | PC.CHAP ---
Pastoral Care Encounter/Spiritual Assessment Type of Contact [] Declined vice president visit [] Patient/Family/Request visit [] Outpatient visit [] Follow-up visit [] Physician referral [] Code/Alert [x Routine visit [] Staff referral [] Actively dying [x] Patient sleeping [] Family support [] [] Out of room [] Palliative care [] [] Receiving care in room [] Pre-surgical visit [] Trauma [] Long length of stay [x] ICU visit [] Other: Relational/Emotional Strength [] Patient feels connected with others/family/visitors/staff [] Distress [] Loneliness/isolation [] Abandonment Spirituality of Patient [] Person of Sonya [] Attends Orthodoxy of their Sonya [] Believes in Prayer [] Reads Bible or Zoroastrian materials [] There are Spiritual issues to be addressed Double Spindle Shaper Operator Interventions [x] Prayer [] Active listening [] Non-anxious presence [] Spiritual/emotional support [] Crisis/trauma care [] Spiritual counseling [] Bereavement support [] Provided bereavement packet [] Provided Bible/devotional materials [] Provided toy/stuffed animal, coloring book to patient or family member [] Provided Communion [] Anointing/[place] [] Salvation [x] Completed spiritual assessment [] Other: Impact on Illness or Injury [] Angry [] Fearful [] Anxious [] Often cries [] Exhaustion [] Unable to work [] Unable to attend scientologist [] Unable to walk/stand [] Unable to read [] Unable to drive [] Unable to eat/drink [] Unable to sleep [] Unable to be with family [] Patient intubated [] Other: Summary Time spent with patient
[2022-02-21 12:41] LABS: Glucose Point of Care 113 mg/dL (70-110)
--- NOTE | 2022-02-21 13:38 | PM.PN ---
Subjective Subjective: Today he is feeling better. He denies chest pain or pressure. He has been having some cough. Requiring low rate oxygen support. Requesting some more solid oral intake, tolerating liquids, but wanted some pudding. Vitals/I&O/Wt Last Vital Signs Temp 97.8 F 02/21/22 05:25 Pulse 126 H 02/21/22 13:00 Resp 26 H 02/21/22 13:00 BP 110/57 02/21/22 13:00 Pulse Ox 96 02/21/22 13:00 O2 Del Method 02/21/22 13:00 O2 Flow Rate 1 02/21/22 13:00 02/20/22 02/21/22 02/21/22 22:59 06:59 14:59 Intake Total 2350 / 2350 200 / 2550 730 / 730 Output Total 175 / 175 350 / 525 300 / 300 Balance 2175 / 2175 -150 / 2025 430 / 430 Weight last 48 hrs Weight 75.863 kg Weight 74.984 kg Weight 74.389 kg Physical Exam Narrative: at bedside Const: COMMON NORMALS: patient oriented x3 and alert GENERAL APPEARANCE: cooperative ORIENTATION/CONSCIOUSNESS: Yes awake OTHER: [place] HENMT: COMMON NORMALS: oropharynx normal Neck/C-Spine: COMMON NORMALS: no JVD Resp: COMMON NORMALS: normal respiratory effort AUSCULTATION: wheezes (mild) Cardio: COMMON NORMALS: no JVD, regular rhythm, S1 normal heart sound present, S2 normal heart sound present and No murmurs present (Cardio) RHYTHM: regular rhythm HEART SOUNDS: S1 normal heart sound present and S2 normal heart sound present GI: COMMON NORMALS: Normal to inspection, nondistended, normoactive bowel sounds present, Soft to palpation and non-tender PALPATION: Yes Soft to palpation Extremity: COMMON NORMALS: no joint enlargement and no pedal edema Neuro: COMMON NORMALS: patient oriented x3 and moves all extremities SENSORIUM/ORIENTATION: Yes alert Skin: COMMON NORMALS: no rashes or lesions noted GENERAL SKIN EXAM: no rashes or lesions noted Data : 02/21/22 03:24 02/21/22 03:24 Micro: Microbiology 02/20/22 12:27 Blood Culture - Preliminary Blood NEGATIVE TO DATE 02/20/22 12:27 Blood Culture - Preliminary Blood NEGATIVE TO DATE 02/21/22 06:43 MRSA Culture - Final Nose 02/20/22 14:56 Urine Culture - Preliminary Urine,Clean Catch A&P Assessment and plan (1) Pneumonia: Requiring low rate oxygen support. Continue empiric antibiotic coverage with cefepime and vancomycin. Pneumonia, possible sepsis, leukocytosis 12.9, tachycardia 110. Hypotension. Lactic acidosis 2.8. Endorgan injury with CHRIS creatinine 1.4. With Continue cefepime, vancomycin. Follow-up blood culture. So far negative. Follow-up urine culture. So far negative. Collect sputum culture. Negative MRSA PCR. COVID-19 PCR negative. Possibility of component of aspiration pneumonia, intermittent cough with food/drink, possible aspiration pneumonia on imaging. Requested ST evaluation as well. Status: Acute (2) UTI (urinary tract infection): Continue cefepime. Follow-up urine culture. No sign of obstructive uropathy on CT. Status: Acute (3) Hypotension: Hypotension is better. He is having flutter intermittently and sinus tachycardia. Hypotensive at oncology clinic and on presentation here. Possibly septic shock. Did respond to initial fluid challenge. Blood pressure improved. Has been endorsing orthopnea as well. We will keep fluid resuscitation conservative. He states he has not been on his blood pressure medications, diltiazem, lisinopril for a while. Possible contribution of hypovolemia due to poor oral intake. Serum cortisol adequate. Status: Acute (4) Dysphagia: Has been having difficulty eating solids. Has had poor oral intake due to this. ST evaluation. For liquid diet. Protein shakes. Status: Acute (5) Squamous cell carcinoma of right tonsil: Pending additional evaluation by oncology. Status: Acute (6) Tachycardia: Sinus tachycardia, but does appear to have some intermittent runs of flutter. He is not on Cardizem. Blood pressure is soft. We will give a dose of digoxin. Continue Eliquis. Status: Acute Plan Incidentally noted liver cirrhosis: Will need follow-up. COPD: Currently does not appear exacerbation CAD DM2 HLD HTN History of CVA Smoking addiction: Nicotine replacement Attestations Medical Necessity Statement*: Continue admission for assessment management of pneumonia, UTI, possible sepsis. 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
[2022-02-21] MEDS: vancomycin 1,250 MG/250 ML PIGGYBACK 250 MG IV (13:39)
--- NOTE | 2022-02-21 13:57 | PC.NURSE ---
Report called to IRISH Chan. Patient and belongings taken to room 255-1, accompanied by . Beside report given. PT AAOx4, no complaints of pain or discomfort, oriented to room and call system.
[2022-02-21] MEDS: oxyCODONE-APAP 5-325 mg Tablet 1 TAB PO ×2 (14:36→18:45)
[2022-02-21] MEDS: lanolin oint 7 gm 1 APPLIC TOPICAL (14:37)
[2022-02-21] MEDS: digoxin 250 mcg/ml INJ 2 mL IVP (14:37)
[2022-02-21 17:20] LABS: Glucose Point of Care 105 mg/dL (70-110)
[2022-02-21] MEDS: nicotine 14 mg Patch 1 PATCH TRANSDERMA (19:49)
[2022-02-21] MEDS: pantoprazole 40 mg SDV IVP (19:50)
[2022-02-21 20:37] LABS: Glucose Point of Care 108 mg/dL (70-110)
[2022-02-22] VITALS (8 sets, daily range): BP systolic 87–121; BP diastolic 62–74; PULSE 92–124; RESP 16–18; TEMP 36.4–36.7; O2SAT 90–96
--- NOTE | 2022-02-22 02:12 | PC.NURSE ---
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 Original Note: Dr. Coronado notified of patient's heart rate ranging from 40s-130s on monitor. Strips printed, posted in patient's chart, and shown to Dr. Coronado. Patient is asymptomatic. Oxygen saturation 93 percent on room air.
[2022-02-22 04:41] LABS: Basophils # 0.1 10^3/uL (0.0-0.1); Basophils % 0.4 %; Eosinophils # 0.2 10^3/uL (0.0-0.8); Eosinophils % 1.7 %; Hematocrit 34.1 % (42.0-52.0); Hemoglobin 10.7 g/dL (11.7-16.6); Lymphocytes # 1.5 10^3/uL (0.8-4.8); Lymphocytes % 11.2 %; Mean Corpuscular HGB Conc 31.4 g/dL (30.0-36.0); Mean Corpuscular Hemoglobin 27.6 pg (28.0-34.0); Mean Corpuscular Volume 88.1 fl (80-94); Mean Platelet Volume 8.8 fL (7.4-10.4); Monocytes # 0.8 10^3/uL (0.2-0.9); Monocytes % 5.6 %; Neutrophils # 10.83 10^3/uL (1.8-7.7); Neutrophils % 79.5 %; Nucleated Red Blood Cells % 0 %; Platelet Count 431 10^3/cmm (130-400); Red Blood Count 3.87 10^6/uL (4.1-5.3); Red Cell Distribution Width 13.9 % (12.1-15.1); White Blood Count 13.6 10^3/uL (4.0-10.0)
[2022-02-22 05:09] LABS: Alanine Aminotransferase 22 U/L (0-41); Albumin Level 2.5 g/dL (3.5-5.2); Alkaline Phosphatase 102 U/L (40-130); Anion Gap 11.9 (5-19); Aspartate Amino Transferase 24 U/L (0-40); Blood Urea Nitrogen 17 mg/dL (8-23); Calcium 9.9 mg/dL (8.5-10.5); Carbon Dioxide 26 mmol/L (22-29); Chloride 102 mmol/L (98-107); Globulin 3.7 g/dL (1.3-4.6); Glomerular Filtration Rate 135.2 mL/min (90-130); Glucose 105 mg/dL (65-115); Osmolality Calculated 284 mOsm/kg (285-295); Potassium 3.9 mmol/L (3.5-5.1); Sodium 136 mmol/L (136-145); Total Bilirubin 0.2 mg/dL (0.15-1.2); Total Protein 6.2 g/dL (6.6-8.7)
[2022-02-22 06:26] LABS: Glucose Point of Care 118 mg/dL (70-110)
[2022-02-22] MEDS: oxyCODONE-APAP 5-325 mg Tablet 1 TAB PO ×2 (06:59→11:27)
[2022-02-22] MEDS: apixaban 5 mg Tablet PO (08:37)
[2022-02-22] MEDS: aspirin 81 mg EC Tablet PO (08:38)
[2022-02-22] MEDS: atorvastatin 40 mg Tablet PO (08:38)
[2022-02-22 11:52] LABS: Glucose Point of Care 128 mg/dL (70-110)
--- NOTE | 2022-02-22 13:22 | P.DS_ITS ---
Discharge Providers Date of Admission: 02/20/22 15:45 Date of Discharge: February 22, 2022 Attending Provider at Admission: Gianfranco Mendez Attending Provider at Discharge: Gianfranco Mendez Primary Care Provider: Felton Edgar Diagnoses at Discharge Discharge Diagnosis (1) Pneumonia: Status: Acute (2) UTI (urinary tract infection): Status: Acute (3) Hypotension: Status: Acute (4) Dysphagia: Status: Acute (5) Squamous cell carcinoma of right tonsil: Status: Acute (6) Tachycardia: Status: Acute Reason for Visit Reason for Visit: Possible hypotension/sepis eval Hospital Course Hospital Course Pleasant 66-year-old gentleman with recently diagnosed tonsil cancer, currently in process of evaluation by oncology, radiation oncology as well as referral to surgery for arrangements for Port-A-Cath and PEG tube, was sent over to ER for evaluation from oncology clinic where he was noted to be hypotensive, blood pressures in the 70s over 50s. He states that he has been feeling out of sorts in the last several days. He has been coughing with productive cough. Denies chest pain. Has been having difficult time eating, with dysphagia has not been able to take in solids. Has been drinking ensures. Occasionally coughs with food or drink, not commonly. Some chills at home, no fever. Has been having some dysuria. In ER noted again hypotensive, as low as 76/50. On presentation with CHRIS, creatinine 1.4. With lactic acidosis of 2.8. Chest x-ray nonacute, areas of chronic mild plaque atelectasis and bilateral lower lungs. CT of the neck with noted necrotic soft tissue mass previously described centered in the right tonsillar bed and hypopharynx. Necrotic neoplasm likely. Mass extends over a length of 7.3 cm beginning in the right tongue base. There is extension across the midline with narrowing of the oropharynx. No significant improvement since 12/27/2021. Bilateral cervical chain lymphadenopathy. CT chest abdomen pelvis with contrast with noted mixture of groundglass attenuation and tree-in-bud airspace disease left upper lobe with lesser extension into the left lower lobe. Consider endobronchial pneumonia/pneumonitis and aspiration pneumonia. Cirrhotic liver. Distal colon diverticulosis without diverticulit is. Normal appendix. No renal obstruction. UA with 5-10 RBC, more than 100 WBC, 0-4 squamous Pelo cells. 1+ bacteria. Negative nitrate. Negative COVID-19 PCR. He received fluid resuscitation with improvement in blood pressure. Diltiazem and lisinopril were not resumed. He was treated with cefepime and vancomycin for pneumonia, UTI. His blood pressure is gradually improved. His heart rates remain variable, with sinus tachycardia likely secondary to pneumonia and UTI and anticipated to improve, with intermittent atrial flutter, but also noted intermittent bradycardia, especially at night. Discussed with him and his spouse, especially 1 episodes was down below 30 bpm, although he was not otherwise symptomatic. He states he has been previously told about having sleep apnea although was hesitant in proceeding with sleep study. Currently sleep apnea likely exacerbated also with tonsillar mass. Discussed with him and his spouse. Today he states he is feeling much better and requested to return home. He states his breathing has been much better, he has been feeling much more energetic, and states that he would likely discharge but would return in case of any trouble. His oxygen requirement has decreased. He was assessed by speech therapy as well. We discussed with him regarding tachycardia, as well as episodes of bradycardia. Sinus tachycardia has been improving, heart rates have been decreasing likely should continue to improve with resolution of pneumonia and UTI. She will continue on empiric antibiotic. However, discussed with him also intermittent atrial flutter as well as intermittent bradycardia and concern that he may be progressing to sick sinus syndrome. Discussed with him again regarding sleep study, and likely the symptoms also should improve with treatment of GIDEON as well as with initiation of treatment for his cancer which she would not like to delay further. However, we discussed also evaluating further with cardiac event monitor to which she is agreeable. He is also agreeable for referral for sleep study in the next 1-2 weeks. He has had improved oral intake while in the hospital with full liquid diet. He has been taking nutritional supplements as well. He is encouraged to continue dysphagia diet after discharge to maintain adequate oral intake. He has follow- up appointment with surgery as mentioned for consideration of PEG and Port-A-Cath placement. Please follow-up regarding recovery from current infections. Reassess risk of aspiration. Continue arrangements for treatment of malignancy. Encouraged him to quit smoking. Physical Exam Narrative: at bedside Const: COMMON NORMALS: patient oriented x3 and alert GENERAL APPEARANCE: cooperative ORIENTATION/CONSCIOUSNESS: Yes awake OTHER: [place] HENMT: COMMON NORMALS: oropharynx normal Neck/C-Spine: COMMON NORMALS: no JVD Resp: COMMON NORMALS: normal respiratory effort OTHER: Few rhonchi Cardio: COMMON NORMALS: no JVD, regular rhythm, S1 normal heart sound present, S2 normal heart sound present and No murmurs present (Cardio) RHYTHM: regular rhythm HEART SOUNDS: S1 normal heart sound present and S2 normal heart sound present GI: COMMON NORMALS: Normal to inspection, nondistended, normoactive bowel sounds present, Soft to palpation and non-tender PALPATION: Yes Soft to palpation Extremity: COMMON NORMALS: no joint enlargement and no pedal edema Neuro: COMMON NORMALS: patient oriented x3 and moves all extremities SENSORIUM/ORIENTATION: Yes alert Skin: COMMON NORMALS: no rashes or lesions noted GENERAL SKIN EXAM: no rashes or lesions noted Discharge Data Studies Completed and Pending Completed Studies During Hospitalization Category Date Time Status CT chest abd pel w con* Stat Cat Scan 02/20/22 11:[address] neck w con* [id number] Stat Cat Scan 02/20/22 11:55 Completed XR chest 1V portable [id number] Stat Exams 02/20/22 11:56 Completed Pending at discharge Category Date Time Status Blood Culture Stat Lab 02/20/22 12:27 Results Complete Blood Count w/Auto AM LABS Lab 02/23/22 04:00 Ordered Comprehensive Metabolic Panel AM LABS Lab 02/23/22 04:00 Ordered Sputum Culture and Gram Stain Routine Lab 02/21/22 09:16 Received Radiology Impressions Chest/Abdomen/Pelvis CT 02/20/22 11:55 IMPRESSION: 1. Mixture of groundglass attenuation and tree-in-bud airspace disease LEFT upper lobe with lesser extension into the LEFT lower lobe. Consider consider endobronchial pneumonia/pneumonitis and aspiration pneumonia. 2. Cirrhotic liver. 3. Distal colon diverticulosis without acute diverticulitis. 4. Normal appendix. 5. No renal obstruction. Neck CT 02/20/22 11:55 IMPRESSION: 1. Necrotic soft tissue mass has been previously described centered in the RIGHT tonsillar bed and hypopharynx. Necrotic neoplasm is likely. Mass extends over a length of 7.3 cm beginning at the RIGHT tongue base. There is extension across the midline with narrowing of the ifeanyi- pharynx. No significant improvement since 12/27/2021. 2. Bilateral cervical chain lymphadenopathy. Chest X-Ray 02/20/22 11:56 IMPRESSION: 1. No acute cardiopulmonary finding. No change. 2. Areas of chronic mild plaque atelectasis in the bilateral lung bases Laboratory Results WBC 13.6 10^3/uL (4.0-10.0) H 02/22/22 04:31 RBC 3.87 10^6/uL (4.1-5.3) L 02/22/22 04:31 Hgb 10.7 g/dL (11.7-16.6) L 02/22/22 04:31 Hct 34.1 % (42.0-52.0) L 02/22/22 04:31 MCV 88.1 fl (80-94) 02/22/22 04:31 MCH 27.6 pg (28.0-34.0) L 02/22/22 04:31 MCHC 31.4 g/dL (30.0-36.0) 02/22/22 04:31 RDW 13.9 % (12.1-15.1) 02/22/22 04:31 Plt Count 431 10^3/cmm (130-400) H 02/22/22 04:31 MPV 8.8 fL (7.4-10.4) 02/22/22 04:31 Neut % (Auto) 79.5 % 02/22/22 04:31 Lymph % (Auto) 11.2 % 02/22/22 04:31 Sully % (Auto) 5.6 % 02/22/22 04:31 Eos % (Auto) 1.7 % 02/22/22 04:31 Baso % (Auto) 0.4 % 02/22/22 04:31 Neut # (Auto) 10.83 10^3/uL (1.8-7.7) H 02/22/22 04:31 Lymph # (Auto) 1.5 10^3/uL (0.8-4.8) 02/22/22 04:31 Sully # (Auto) 0.8 10^3/uL (0.2-0.9) 02/22/22 04:31 Eos # (Auto) 0.2 10^3/uL (0.0-0.8) 02/22/22 04:31 Baso # (Auto) 0.1 10^3/uL (0.0-0.1) 02/22/22 04:31 Nucleated RBC % (auto) 0 % 02/22/22 04:31 Nucleated RBCs # 0.0 /100WBC 02/22/22 04:31 Sodium 136 mmol/L (136-145) 02/22/22 04:31 Potassium 3.9 mmol/L (3.5-5.1) 02/22/22 04:31 Chloride 102 mmol/L (98-107) 02/22/22 04:31 Carbon Dioxide 26 mmol/L (22-29) 02/22/22 04:31 Anion Gap 11.9 (5-19) 02/22/22 04:31 BUN 17 mg/dL (8-23) 02/22/22 04:31 Creatinine 0.6 mg/dL (0.7-1.2) L 02/22/22 04:31 GFR Calculation 135.2 mL/min (90-130) H 02/22/22 04:31 Glucose 105 mg/dL (65-115) 02/22/22 04:31 POC Glucose 128 mg/dL (70-110) H 02/22/22 11:10 Calculated Osmolality 284 mOsm/kg (285-295) L 02/22/22 04:31 Lactate 2.8 mmol/L (0.5-2.2) H 02/20/22 12:15 Calcium 9.9 mg/dL (8.5-10.5) 02/22/22 04:31 Magnesium 1.9 mg/dL (1.7-2.3) 02/20/22 12:15 Total Bilirubin 0.2 mg/dL (0.15-1.2) 02/22/22 04:31 AST 24 U/L (0-40) 02/22/22 04:31 ALT 22 U/L (0-41) 02/22/22 04:31 Alkaline Phosphatase 102 U/L (40-130) 02/22/22 04:31 Troponin T Baseline 25 ng/L (0-15) H 02/20/22 12:15 Troponin T 120 Minute 20.71 ng/L (0-15) H 02/20/22 14:10 Delta Troponin T -4.29 ABS# (0-10) L 02/20/22 14:10 Troponin T Hi Sens 6Hr 21.61 ng/L (0-15) H 02/20/22 18:15 Troponin T Hi Sens 6Hr Delta -3.39 ng/L (0-12) L 02/20/22 18:15 Total Protein 6.2 g/dL (6.6-8.7) L 02/22/22 04:31 Albumin 2.5 g/dL (3.5-5.2) L 02/22/22 04:31 Globulin 3.7 g/dL (1.3-4.6) 02/22/22 04:31 Lipase 23 U/L (13-60) 02/20/22 12:15 Random Cortisol 19.72 ug/dL (2.47-19.5) H 02/20/22 12:15 Urine Color Yellow (Yellow) 02/20/22 14:56 Urine Appearance Hazy (CLEAR) A 02/20/22 14:56 Urine pH 5 (5-7) 02/20/22 14:56 Ur Specific [place] 1.005 (1.005-1.030) 02/20/22 14:56 Urine Protein 1+ (Negative) H 02/20/22 14:56 Urine Glucose (UA) Norm (Normal) 02/20/22 14:56 Urine Ketones Negative (Negative) 02/20/22 14:56 Urine Blood 3+ (Negative) H 02/20/22 14:56 Urine Nitrate Negative (Negative) 02/20/22 14:56 Urine Bilirubin Neg (Negative) 02/20/22 14:56 Urine Urobilinogen Norm mg/dL (Negative) 02/20/22 14:56 Ur Leukocyte Esterase Trace (Negative) H 02/20/22 14:56 Urine RBC 5-10 /hpf (0-2) H 02/20/22 14:56 Urine WBC >100 /hpf (0-5) H 02/20/22 14:56 Ur Squamous Epith Cells 0-4 /hpf (0-5) H 02/20/22 14:56 Amorphous Sediment 1+ /hpf 02/20/22 14:56 Urine Bacteria 1+ /hpf (NONE) H 02/20/22 14:56 Urine Mucus Trace /hpf 02/20/22 14:56 Coronavirus 229E (PCR) Not detected (NOT DETECT) 02/20/22 12:15 SARS-CoV-2 (PCR) Not detected (NOT DETECT) 02/20/22 12:15 Vitals Last Vital Signs Temp 98 F 02/22/22 12:00 Pulse 124 H 02/22/22 12:00 Resp 18 02/22/22 12:00 BP 87/62 02/22/22 12:00 Pulse Ox 94 02/22/22 12:00 O2 Del Method 02/22/22 03:46 O2 Flow Rate 1 02/22/22 08:00 Discharge Plan Discharge Patient Disposition: Home Condition: Stable Prescriptions: New levofloxacin 500 mg tablet 500 mg PO DAILY 5 Days Qty: 5 0RF Continued oxycodone-acetaminophen [Percocet] 5-325 mg tablet 1 - 2 tab PO .q4-6hr PRN (Reason: pain) 30 Days Qty: 60 0RF Lidocaine Viscous 2 % solution 5 ml mucous membrane Q6H PRN (Reason: Pain) Qty: 100 0RF albuterol sulfate 90 mcg/actuation HFA aerosol inhaler 2 inh INHALATION Q4H PRN (Reason: shortness of breath or wheezing) Qty: 18 0RF cyanocobalamin (vitamin B-12) [Vitamin B-12] 1,000 mcg Tablet 1,000 mcg PO QAM metformin 1,000 mg Tablet 500 mg PO QAM rosuvastatin [Crestor] 20 mg Tablet 10 mg PO QAM cholecalciferol (vitamin D3) [Vitamin D3] 50 mcg (2,000 unit) Tablet 2,000 unit PO QPM Eliquis 5 mg Tablet 5 mg PO BID Spiriva Respimat 2.5 mcg/actuation Mist 2 inh INHALATION QAM mometasone-formoterol 200-5 mcg/actuation Hfa Aerosol Inhaler 2 puff INHALATION BID polyethylene glycol 3350 [Miralax] 17 gram Powder In Packet 17 g PO DAILY PRN (Reason: Constipation) aspirin 81 mg Tablet,Delayed Release (Dr/Ec) 81 mg PO DAILY Qty: 30 0RF cyclobenzaprine 10 mg Tablet 10 mg PO TID PRN (Reason: Muscle Spasm) nicotine 14 mg/24 hr Patch 24 Hour 1 patch TRANSDERMAL Q24H nicotine (polacrilex) 4 mg Mini Lozenge 4 mg BUCCAL Q4H PRN (Reason: Smoking Cessation) Discontinued diltiazem HCl 360 mg Capsule,Extended Release 24 Hr 360 mg PO DAILY lisinopril 40 mg Tablet 40 mg PO DAILY nicotine 7 mg/24 hr Patch 24 Hour 1 patch TRANSDERMAL Q24H Discharge Orders: Discharge Order (Routine); Ordered 02/22/22 Ordered By: Gianfranco Mendez Other Ambulatory Orders: MCT/Event Monitor 21 Days (Routine) Timeframe: 1 Day Facility: [facility] - Location: Radiology Ordered By: Gianfranco Mendez Sleep Study/Titration (Routine) Timeframe: 2 Weeks Facility: [facility] - Location: [facility] Ordered By: Gianfranco Mendez Referrals: Matthias Banerjee MD [Physician] - 04/20/22 12:45 pm (Tachy taz. MONITOR APPT: SundayMar.01 @ 1:[address] Redmond will see him in [facility] because he is not a current patient with heartcare. ) Felton Edgar [Primary Care Provider] - (WILL CALL PATIENT WITH FOLLOW UP APPOINTMENT.) Katrina Gaytan MD [Referring] - None (First available appt - to be contacted) Discharge Diet: Full LIquid Discharge Activity: Oxygen as instructed Patient Instructions: Levofloxacin (By mouth), How to Stop Smoking (GEN), Urinary Tract Infection in Men (GEN), Cigarette Smoking and Your Health (GEN), Using Oxygen at Home (GEN), Community Acquired Pneumonia (GEN), Bradycardia (GEN), Hypoxia (GEN), Sleep Study (GEN), Holter Monitor (GEN), Obstructive Sleep Apnea Activity Restrictions/Additional Instructions: Complete antibiotic course for pneumonia and urinary tract infection. Resume your prehospitalization follow-up with specialist physicians. As discussed you are also being set up with a heart monitor to further assess episodes of fast and slow heart rate. It is also suspected these likely are related to your sleep apnea as well, so you are also referred for sleep study as we had discussed. Treatment of sleep apnea may help prevent worsening of slow and/or fast heart rates. Discharge Attestations Time Spent in Discharge Care*: greater than 30 min Quality Metrics Clinical Quality Measures [ No reported AMI, CVA or VTE this stay] Coding Level of Care Code Acute Chg FW DC note Diagnoses Pneumonia J18.9 UTI (urinary tract infection) N39.0 Hypotension I95.9 Dysphagia R13.10 Squamous cell carcinoma of right tonsil C09.9 Tachycardia R00.0
== END 2022-02-22 14:29 | disposition home or self-care (01) | DRG 178 ==
LOC: ER 17:58 → ICU 20:49 → MEDSURG 02-21 14:36
PROVIDERS: Admitting Provider Internal Medicine; Emergency Provider Emergency Medicine; PCP Internal Medicine; Visit Provider Internal Medicine
DX: J69.0 Pneumonitis due to inhalation of food and vomit (principal); E87.2 Acidosis; I48.92 Unspecified atrial flutter; N17.9 Acute kidney failure, unspecified; N39.0 Urinary tract infection, site not specified; J44.9 Chronic obstructive pulmonary disease, unspecified; C09.8 Malignant neoplasm of overlapping sites of tonsil; I95.9 Hypotension, unspecified; K74.60 Unspecified cirrhosis of liver; I25.10 Atherosclerotic heart disease of native coronary artery without angina pectoris; E11.9 Type 2 diabetes mellitus without complications; E78.5 Hyperlipidemia, unspecified; F17.210 Nicotine dependence, cigarettes, uncomplicated; R13.10 Dysphagia, unspecified; G47.30 Sleep apnea, unspecified; R00.1 Bradycardia, unspecified; R00.0 Tachycardia, unspecified; I10 Essential (primary) hypertension; Z79.82 Long term (current) use of aspirin; Z79.01 Long term (current) use of anticoagulants; Z79.84 Long term (current) use of oral hypoglycemic drugs; Z79.51 Long term (current) use of inhaled steroids; Z79.891 Long term (current) use of opiate analgesic; Z86.73 Personal history of transient ischemic attack (TIA), and cerebral infarction without residual deficits
CPT/HCPCS: 36415; 36416; 70491; 71045; 71260; 74177; 80053; 81001; 82533; 82962; 83605; 83690; 83735; 84484; 85025; 87040; 87070; 87086; 87205; 87635; 87641; 92523; 92610; 93005; 94760; 96365; 99215; 99285; C9113; J0692; J1160; J3370; J7030; Q9967

== ENCOUNTER → 2022-02-23 12:43 | Outpatient (BNVA) | payer OTHER, MEDICARE, MEDICAID, SELFPAY | PROVIDERS: PCP Internal Medicine; Referring Provider Radiology Radiation Oncology; Visit Provider Surgery | DX: C09.9 Malignant neoplasm of tonsil, unspecified (principal); R13.10 Dysphagia, unspecified | CPT/HCPCS: 99203 ==

== ENCOUNTER 2022-02-28 14:10 | Emergency (ER) | payer OTHER, SELFPAY ==
[2022-02-28 14:47] VITALS: BP 99/63; PULSE 115; RESP 14; TEMP 36.9; O2SAT 95
--- NOTE | 2022-02-28 14:53 | XRR_ITS ---
PROCEDURE INFORMATION: Exam: XR Chest Exam date and time: 02/28/2022 3:02 PM Age: 66 years old Clinical indication: Cough and shortness of breath; Patient HX: HX of throat cancer TECHNIQUE: Imaging protocol: Radiologic exam of the chest. Views: 1 view. COMPARISON: CT chest abd pel w con* 02/20/2022 12:45 PM FINDINGS: Lungs: The lung bases are suboptimally assessed due to technique however the upper lungs are clear of focal consolidation. Probable mild interstitial prominence in the lateral left lung base. Most recent CT demonstrated ground-glass and tree-in-bud opacities in this region. There probably has been minimal interval change. Reassessment by CT may be obtained if clinically indicated. Pleural spaces: Unremarkable. No pleural effusion. No pneumothorax. Heart/Mediastinum: Cardiac silhouette appears normal in size. No obvious vascular congestion. Bones/joints: No acute osseous findings. Other findings: Two frontal views submitted. XR/XR chest 1V portable [id number] IMPRESSION: Left basilar interstitial opacities. See discussion above.
[2022-02-28 17:17] LABS: Basophils # 0.1 10^3/uL (0.0-0.1); Basophils % 0.3 %; Eosinophils # 0.1 10^3/uL (0.0-0.8); Eosinophils % 0.6 %; Hematocrit 37.1 % (42.0-52.0); Hemoglobin 11.9 g/dL (11.7-16.6); Lymphocytes # 2.1 10^3/uL (0.8-4.8); Lymphocytes % 8.9 %; Mean Corpuscular HGB Conc 32.1 g/dL (30.0-36.0); Mean Corpuscular Hemoglobin 28.1 pg (28.0-34.0); Mean Corpuscular Volume 87.7 fl (80-94); Mean Platelet Volume 8.6 fL (7.4-10.4); Monocytes # 1.1 10^3/uL (0.2-0.9); Monocytes % 4.6 %; Neutrophils # 19.95 10^3/uL (1.8-7.7); Neutrophils % 84.6 %; Nucleated Red Blood Cells % 0 %; Platelet Count 539 10^3/cmm (130-400); Red Blood Count 4.23 10^6/uL (4.1-5.3); Red Cell Distribution Width 14.6 % (12.1-15.1); White Blood Count 23.6 10^3/uL (4.0-10.0)
[2022-02-28 17:43] LABS: Alanine Aminotransferase 7 U/L (0-41); Albumin Level 2.8 g/dL (3.5-5.2); Alkaline Phosphatase 116 U/L (40-130); Blood Urea Nitrogen 12 mg/dL (8-23); Calcium 9.7 mg/dL (8.5-10.5); Carbon Dioxide 28 mmol/L (22-29); Chloride 101 mmol/L (98-107); Globulin 4.1 g/dL (1.3-4.6); Glomerular Filtration Rate 166.9 mL/min (90-130); Glucose 110 mg/dL (65-115); Osmolality Calculated 292 mOsm/kg (285-295); Sodium 141 mmol/L (136-145); Total Bilirubin 0.2 mg/dL (0.15-1.2); Total Protein 6.9 g/dL (6.6-8.7)
[2022-02-28 17:50] LABS: Anion Gap 16.2 (5-19); Aspartate Amino Transferase 13 U/L (0-40); Potassium 4.2 mmol/L (3.5-5.1)
--- NOTE | 2022-02-28 17:55 | ED_ITS ---
HPI - General Adult General: Chief complaint: General Medical Stated complaint: puking blood Time Seen by Provider: 02/28/22 14:53 History of Present Illness: 66-year-old male patient presents to the emergency department with blood-tinged sputum. Patient states he has throat cancer and had a coughing spell and noticed his sputum had blood in it. Patient denies any chest pain or shortness of breath. Patient denies any throat swelling or difficulty swallowing that is not his normal for him secondary to his throat cancer. Patient denies any chest pain. Patient denies any new or worsening shortness of breath. Patient denies any fever. Associated symptoms: Deny chest pain, confusion, diaphoresis, dyspnea, headache(s), malaise, nausea, rash, palpitations, syncope or vomiting Review of Systems 2 Const: Denies: fever(s), chills, body aches, change in appetite, change in weight, fatigue, malaise or diaphoresis Eyes: Denies: change in vision, blurry vision, blind spots, photophobia, eye discomfort, eye discharge, eye redness, floaters or seeing flashes ENMT: Denies: throat pain, enlarged tonsils, odynophagia, mouth pain, swelling of lips/tongue, oral sores, bleeding gums, dental pain, dry mouth, ear or mastoid pain, ear discharge, change in hearing, tinnitus, disequilibrium, nasal discharge, nasal congestion, post nasal drip or sinus pain Card: Denies: chest pain, palpitations, irregular heart rhythm, edema, swelling of feet/ankles, lightheadedness, syncope, pre-syncope, dyspnea on exertion, orthopnea, leg pain with exertion or acrocyanosis Resp: Denies: dyspnea, non-productive cough, wheezing, stridor, pain on inspiration, change in phlegm color, hemoptysis or chest congestion GI: Denies: abdominal pain, nausea, vomiting, hematemesis, dysphagia, diarrhea, constipation, GI cramping, change in bowel habits or rectal pain : Denies: flank pain, dysuria, urinary frequency, urinary urgency, urinary hesitancy or hematuria Musc: Denies: neck pain, back pain, extremity pain, extremity swelling, joint pain, joint swelling, joint redness, joint warmth or deformity Skin/Breast: Denies: rash, pruritus, erythema, sores, new lesions, changes in skin color or dry skin Neuro: Denies: headache(s), numbness in extremities, weakness in extremities, sensory changes, lack of coordination, difficulty walking, frequent falls, dizziness, vertigo, confusion, behavioral changes, Slurred speech present, difficulty communicating thoughts or seizure-like activity Psych: Denies: anxiety, depression, suicidal ideation or homicidal ideation Endo: Denies: polyuria, polydipsia, tired all the time, cold intolerance, excessive sweating, flushing, hot flashes or heat intolerance Paco/Lymph: Denies: easy bruising, easy bleeding, petechiae, purpura, enlarged lymph nodes or tender lymph nodes All/Imm: Denies: urticaria, throat swelling, tongue swelling, facial swelling, acute wheezing or itchy eyes PFSH ED PFSH: Medical History Acute exacerbation of chronic obstructive pulmonary disease COPD (chronic obstructive pulmonary disease) Coronary artery disease Diabetes mellitus Hyperlipidemia Hypertension GIDEON (obstructive sleep apnea) Squamous cell carcinoma of right tonsil Stroke Throat cancer Surgical History History of heart artery stent 1996 History of surgery on arm History of surgery on lower extremity Family History Mother Cancer lung Father Stroke Sister Cancer lung Other Bleeding disorder Clotting disorder Diabetes Hyperlipidemia Denies family history of CAD (coronary artery disease) Dementia Psychiatric illness Chronic kidney disease (CKD) Suicide Anesthesia complication Lung disease Hypertension Social History Smoking and tobacco status: current every day smoker (1 ppd, smoked since 1971) cigarettes Packs smoked per day: 1.5 Alcohol intake: never Lives independently: Yes Household members: family Physical Exam Const: COMMON NORMALS: no acute distress, average body habitus, patient oriented x3, no limitations, healthy appearing, alert and well nourished HENMT: COMMON NORMALS: normocephalic, atraumatic, hearing grossly normal bilaterally, EAC's normal, TM's normal bilaterally, Normal external nose p resent, Normal nasal mucous membranes and turbinates present, moist oral mucous membranes and oropharynx normal HEAD & SCALP: normocephalic and atraumatic NOSE: Normal external nose present and Normal nasal mucous membranes and turbinates present EXTERNAL AUDITORY CANAL: EAC's normal TYMPANIC MEMBRANE: TM's normal bilaterally THROAT: other (Patient has erythema to the posterior oropharynx patient has a swollen uvul) Neck/C-Spine: COMMON NORMALS: full ROM, no lymphadenopathy, supple, no meningeal signs, no JVD, Thyroid normal and No carotid bruits THYROID: Thyroid normal Chest: COMMONS NORMALS: normal inspection of the chest and normal palpation of entire chest wall Resp: COMMON NORMALS: normal respiratory effort, No retractions, No use of accessory muscles, clear to auscultation bilaterally and percussion normal AUSCULTATION: clear to auscultation bilaterally PERCUSSION: percussion normal Cardio: COMMON NORMALS: no JVD, regular rate and regular rhythm RATE: regular rate RHYTHM: regular rhythm GI: COMMON NORMALS: Normal to inspection, nondistended, normoactive bowel sounds present, Soft to palpation and non-tender PALPATION: Yes Soft to palpation Neuro: COMMON NORMALS: patient oriented x3, CN's II-XII intact bilaterally, moves all extremities, no focal motor deficits and no sensory deficits noted SENSORIUM/ORIENTATION: Yes alert MENINGEAL SIGNS: Yes no meningeal signs Course Vital Signs: Vital signs: Vital Signs Temperature 98.4 F 02/28/22 14:47 Pulse Rate 115 H 02/28/22 14:47 Respiratory Rate 14 02/28/22 14:47 Blood Pressure 99/63 02/28/22 14:47 Pulse Oximetry 95 02/28/22 14:47 Oxygen Delivery Me thod 02/28/22 14:47 MDM - General Adult Medical Decision Making Patient is well-appearing nontoxic and in no acute distress.rtness of breath. Patient denies any throat swelling or difficulty swallowing that is not his normal for him secondary to his throat cancer. Patient denies any chest pain. Patient denies any new or worsening shortness of breath. Patient denies any fever. Patient is noted to have erythema noted to the posterior oropharynx as well as uvula swelling. Patient states this is all normal findings for him as he has severe extended throat cancer. Patient states he does not have any changes to his breathing swallowing or throat pain. Patient's H&H is stable however patient did have an elevated white blood cell count of 23.6 patient does tend to run high on his white blood cell count however this is quite a bit of a jump from his previous based on these findings I feel ordering a CT chest and throat is indicated to rule out any life-threatening or serious conditions given patient's complaint and past medical history as well as lab findings. Patient does not want to have a CT of his chest done patient states he sees his oncologist tomorrow and his oncologist can take care of this however he sees fit. I described and discussed with patient and family at bedside how serious this could be and by not having this checked he could possibly worsen his medical condition become disabled or even . Patient is not intoxicated does not have altered mental status and has the capacity to make his own medical decisions while I tried to convince him to stay and have these test done patient still refuses to have these and wants to sign out AGAINST MEDICAL ADVICE I tried to answer all of his questions to the best of my ability patient assures me he will follow-up with his oncologist tomorrow and return to the ER with any worsening of his symptoms Lab Data : 02/28/22 17:07 02/28/22 17:07 Radiology Impressions Chest X-Ray 02/28/22 14:53 IMPRESSION: Left basilar interstitial opacities. See discussion above. Laboratory Results WBC 23.6 10^3/uL (4.0-10.0) H 02/28/22 17:07 RBC 4.23 10^6/uL (4.1-5.3) 02/28/22 17:07 Hgb 11.9 g/dL (11.7-16.6) 02/28/22 17:07 Hct 37.1 % (42.0-52.0) L 02/28/22 17:07 MCV 87.7 fl (80-94) 02/28/22 17:07 MCH 28.1 pg (28.0-34.0) 02/28/22 17:07 MCHC 32.1 g/dL (30.0-36.0) 02/28/22 17:07 RDW 14.6 % (12.1-15.1) 02/28/22 17:07 Plt Count 539 10^3/cmm (130-400) H 02/28/22 17:07 MPV 8.6 fL (7.4-10.4) 02/28/22 17:07 Neut % (Auto) 84.6 % 02/28/22 17:07 Lymph % (Auto) 8.9 % 02/28/22 17:07 [place] % (Auto) 4.6 % 02/28/22 17:07 Eos % (Auto) 0.6 % 02/28/22 17:07 Baso % (Auto) 0.3 % 02/28/22 17:07 Neut # (Auto) 19.95 10^3/uL (1.8-7.7) H 02/28/22 17:07 Lymph # (Auto) 2.1 10^3/uL (0.8-4.8) 02/28/22 17:07 [place] # (Auto) 1.1 10^3/uL (0.2-0.9) H 02/28/22 17:07 Eos # (Auto) 0.1 10^3/uL (0.0-0.8) 02/28/22 17:07 Baso # (Auto) 0.1 10^3/uL (0.0-0.1) 02/28/22 17:07 Nucleated RBC % (auto) 0 % 02/28/22 17:07 Nucleated RBCs # 0.0 /100WBC 02/28/22 17:07 Sodium 141 mmol/L (136-145) 02/28/22 17:07 Potassium 4.2 mmol/L (3.5-5.1) 02/28/22 17:07 Chloride 101 mmol/L (98-107) 02/28/22 17:07 Carbon Dioxide 28 mmol/L (22-29) 02/28/22 17:07 Anion Gap 16.2 (5-19) 02/28/22 17:07 BUN 12 mg/dL (8-23) 02/28/22 17:07 Creatinine 0.5 mg/dL (0.7-1.2) L 02/28/22 17:07 GFR Calculation 166.9 mL/min (90-130) H 02/28/22 17:07 Glucose 110 mg/dL (65-115) 02/28/22 17:07 Calculated Osmolality 292 mOsm/kg (285-295) 02/28/22 17:07 Calcium 9.7 mg/dL (8.5-10.5) 02/28/22 17:07 Total Bilirubin 0.2 mg/dL (0.15-1.2) 02/28/22 17:07 AST 13 U/L (0-40) 02/28/22 17:07 ALT 7 U/L (0-41) 02/28/22 17:07 Alkaline Phosphatase 116 U/L (40-130) 02/28/22 17:07 Total Protein 6.9 g/dL (6.6-8.7) 02/28/22 17:07 Albumin 2.8 g/dL (3.5-5.2) L 02/28/22 17:07 Globulin 4.1 g/dL (1.3-4.6) 02/28/22 17:07 Discharge Plan Discharge Patient Disposition: Left Against Medical Advice Clinical Impression: Throat cancer Condition: Stable Prescriptions: No Action oxycodone-acetaminophen [Percocet] 5-325 mg tablet 1 - 2 tab PO .q4-6hr PRN (Reason: pain) 30 Days Qty: 60 0RF Lidocaine Viscous 2 % solution 5 ml mucous membrane Q6H PRN (Reason: Pain) Qty: 100 0RF albuterol sulfate 90 mcg/actuation HFA aerosol inhaler 2 inh INHALATION Q4H PRN (Reason: shortness of breath or wheezing) Qty: 18 0RF prochlorperazine maleate [Compazine] 10 mg tablet 10 mg PO Q4H PRN (Reason: Mild Nausea) Qty: 30 3RF lorazepam 1 mg tablet 0.5 - 1 mg PO Q6H PRN (Reason: Severe Nausea) Qty: 30 3RF cyanocobalamin (vitamin B-12) [Vitamin B-12] 1,000 mcg Tablet 1,000 mcg PO QAM metformin 1,000 mg Tablet 500 mg PO QAM rosuvastatin [Crestor] 20 mg Tablet 10 mg PO QAM cholecalciferol (vitamin D3) [Vitamin D3] 50 mcg (2,000 unit) Tablet 2,000 unit PO QPM Eliquis 5 mg Tablet 5 mg PO BID Spiriva Respimat 2.5 mcg/actuation Mist 2 inh INHALATION QAM mometasone-formoterol 200-5 mcg/actuation Hfa Aerosol Inhaler 2 puff INHALATION BID polyethylene glycol 3350 [Miralax] 17 gram Powder In Packet 17 g PO DAILY PRN (Reason: Constipation) aspirin 81 mg Tablet,Delayed Release (Dr/Ec) 81 mg PO DAILY Qty: 30 0RF cyclobenzaprine 10 mg Tablet 10 mg PO TID PRN (Reason: Muscle Spasm) nicotine 14 mg/24 hr Patch 24 Hour 1 patch TRANSDERMAL Q24H nicotine (polacrilex) 4 mg Mini Lozenge 4 mg BUCCAL Q4H PRN (Reason: Smoking Cessation) Discharge Orders: Discharge ED (Routine); Ordered 02/28/22 Ordered By: Maylin Mcclure Referrals: Katrina Gaytan MD [Primary Care Provider] - Activity Restrictions/Additional Instructions: Please keep your oncology appointment tomorrow with oncologist and discuss todays test results Please return immedtialy to ER with any worsening of symptoms Coding Level of Care Code ED Schedule Planning Manager for Chg Fwd Exam Comprehensive
== END 2022-02-28 18:11 | disposition left against medical advice (07) ==
PROVIDERS: Emergency Provider Registered Nurse; PCP Family Medicine
DX: C14.0 Malignant neoplasm of pharynx, unspecified (principal); Z53.29 Procedure and treatment not carried out because of patient's decision for other reasons; F17.210 Nicotine dependence, cigarettes, uncomplicated; J44.9 Chronic obstructive pulmonary disease, unspecified; E11.9 Type 2 diabetes mellitus without complications; I10 Essential (primary) hypertension; E78.5 Hyperlipidemia, unspecified
CPT/HCPCS: 71045; 80053; 85025; 99284

== ENCOUNTER 2022-03-07 05:40 | Day surgery (SDC) | payer OTHER, SELFPAY ==
[2022-03-06 11:07] VITALS: BMI 27.8
[2022-03-07] VITALS (13 sets, daily range): BP systolic 90–132; BP diastolic 61–92; PULSE 86–125; RESP 16–20; TEMP 36.5–37.1; O2SAT 90–100
--- NOTE | 2022-03-07 | SCC_ITS ---
Procedure done: 1. Placement of PowerPort via left subclavian vein 2. Fluoroscopic guidance and interpretation for placement of catheter 3. Percutaneous endoscopic guided gastrostomy feeding tube placement 10.5 seconds of fluoroscopic guidance, for a cumulative dose of 1.96 mGy, was provided to Dr. Mead by the radiology department. C-arm images of the chest were saved for the patient's permanent record. [facility]
--- NOTE | 2022-03-07 06:08 | W.PM.OPSUD ---
Surgery/Procedure H&P Update DATE OF PROCEDURE: March 07, 2022 DATE H&P PERFORMED: 02/23/22 H&P UPDATE INFORMATION: I have reviewed H&P completed within last 30 days, I have examined patient prior to procedure and Changes to prior documentation as noted here (Patient was placed recently on Holter monitor, will defer to anesthesia for further preop evaluation) PREOP DIAGNOSIS: Tonsillar cancer PRIMARY INDICATION FOR PROCEDURE: The same PLANNED PROCEDURE: Operation Date: 03/07/22 07:00 Proposed Procedures p endoscopic guided gastrostomy feeding tube and power port placement [id number],C09.9(Not Applicable) - Vinicius Mead MD s Power Port Placement(Not Applicable) - Vinicius Mead MD
--- NOTE | 2022-03-07 06:20 | P.ANESASSM_ITS ---
Pre-Anesthetic Assessment Height/Weight: Height 1.65 m Weight 75.75 kg Temp Pulse Resp BP Pulse Ox O2 Del Method 97.7 F 125 H 18 103/80 97 03/07/22 06:09 03/07/22 06:03/07/22 06:09 03/07/22 06:09 03/07/22 06:03/07/22 06:09 Preop Diagnosis: Tonsillar cancer Operation Date: 03/07/22 07:00 Proposed Procedures p endoscopic guided gastrostomy feeding tube and power port placement [id number],C09.9(Not Applicable) - Vinicius Mead MD s Power Port Placement(Not Applicable) - Vinicius Mead MD Familial anesthetic complications: none Was Beta Hui taken within 24 hours: N/A Was Clonidine taken within 24 hours: N/A Last intake: 03/06/22 Social Tobacco and No alcohol Exam alert, oriented x 3 and regular rate & rhythm wheezing b/l Airway Submandibular: within normal limits Cervical ROM: within normal limits Mallampati: Class III Dentition: false Pulmonary Chronic Obstructive Pulmonary Disease, Sleep Apnea and Shortness of Breath throat cancer CV/HEM Arrythmia (Sinus tachycardia on Holter, concern for sick sinus ), Coronary Artery Disease (Hx of CA stent ) and Hypertension None reported Hepatic None reported GI Dysphagia Metabolic Diabetes Mellitus and Hyperlipidemia Neuropsych Cerebrovascular Accident (Residual facial weakness ) Anesthetic Plan ASA status: 4 Anesthesia: Anesthesia Evaluation and General Other: We discussed risk and benefits of general anesthesia including PONV, sore throat (sometimes severe), corneal abrasion, positioning and peripheral nerve injuries, life threatening allergic reaction, post operative ICU admission requiring prolonged intubation, aspiration, stroke, heart attack, , and rare incidences of recall. Patient consents to proceed with general anesthesia. ' Plan maintenance of SV, sedation, topicalization of airway, video laryngoscope intubation, general anesthesia - discussed with patient. Risk of > 500 ml blood loss (7ml/kg in children): No Medications/Allergies Home Medications Medication Instructions Recorded Confirmed Last Taken Type albuterol sulfate 90 mcg/actuation 2 inh inhalation Q4H PRN shortness 11/30/21 03/07/22 03/06/22 Rx aerosol inhaler of breath or wheezing #18 grams apixaban 5 mg tablet (Eliquis) 5 mg PO BID 01/25/22 03/06/22 03/05/22 03:00 History cholecalciferol (vitamin D3) 50 2,000 unit PO QPM 01/25/22 03/07/22 03/06/22 History mcg (2,000 unit) tablet (Vitamin D3) cyanocobalamin (vitamin B-12) 1,000 mcg PO QAM 01/25/22 03/07/22 03/07/22 03:00 History 1,000 mcg tablet (Vitamin B-12) metformin 1,000 mg tablet 500 mg PO QAM 01/25/22 03/07/22 03/07/22 03:00 History mometasone-formoterol HFA 200 2 puff inhalation BID 01/25/22 03/06/22 02/20/22 History mcg-5 mcg/actuation aerosol inhaler polyethylene glycol 3350 17 gram 17 g PO DAILY PRN Constipation 01/25/22 03/06/22 Unknown History oral powder packet (Miralax) rosuvastatin 20 mg tablet (Crestor) 10 mg PO QAM 01/25/22 03/07/22 03/07/22 03:00 History tiotropium bromide 2.5 2 inh inhalation QAM 01/25/22 03/07/22 03/07/22 History mcg/actuation mist for inhalation (Spiriva Respimat) aspirin 81 mg tablet,delayed 81 mg PO DAILY #30 tabs 01/26/22 03/07/22 03/07/22 03:00 Rx release oxycodone-acetaminophen 5 mg-325 1 - 2 tab PO .q4-6hr PRN pain 30 02/20/22 03/07/22 03/07/22 03:00 Rx mg tablet (Percocet) days #60 tabs lidocaine HCl 2 % mucosal solution 5 ml mucous membrane Q6H PRN Pain 02/22/22 03/06/22 Unknown Rx (Lidocaine Viscous) #100 mL acetaminophen 500 mg tablet 1,000 mg PO BID 03/06/22 03/07/22 03/07/22 03:00 History Allergies Allergy/AdvReac Type Severity Reaction Status Date / Time No Known Allergies Allergy Verified 03/06/22 11:00 [facility] Anesthesia Medical History Acute exacerbation of chronic obstructive pulmonary disease COPD (chronic obstructive pulmonary disease) Coronary artery disease Diabetes mellitus Hyperlipidemia Hypertension GIDEON (obstructive sleep apnea) Squamous cell carcinoma of right tonsil Stroke Throat cancer Surgical History History of heart artery stent 1996 History of surgery on arm History of surgery on lower extremity Family History Mother Cancer lung Father Stroke Sister Cancer lung Other Bleeding disorder Clotting disorder Diabetes Hyperlipidemia Denies family history of CAD (coronary artery disease) Dementia Psychiatric illness Chronic kidney disease (CKD) Suicide Anesthesia complication Lung disease Hypertension Social History Smoking and tobacco status: current every day smoker (1 ppd, smoked since 1971) cigarettes Packs smoked per day: 1.5 Alcohol intake: never Lives independently: Yes Household members: family Data Anesthesia Cardiac Studies: Echocardiogram 01/25/22
[2022-03-07] MEDS: sodium chloride 0.9% 1,000 ML 30 ML IV (06:30)
[2022-03-07 06:42] LABS: Glucose Point of Care 119 mg/dL (70-110)
--- NOTE | 2022-03-07 06:47 | SC_ITS ---
WS: [id number] INTRAOPERATIVE TECHNIQUE: 2 Spot fluoroscopic images for intraoperative purposes. FLUOROSCOPY TIME: 10.5 seconds CLINICAL INFORMATION: intra-op COMPARISON: None. FINDINGS: RIGHT Port-A-Cath with tip in the mid to distal SVC. No visualized pneumothorax. Endotracheal tube wi th tip above the bladimir. SC/C-arm [place] for CVA [id number] IMPRESSION: Images obtained for intraoperative purposes.
[2022-03-07] MEDS: lidocaine 4% PF 5 mL INJ INHALATION (07:18)
[2022-03-07] MEDS: ceFAZolin 2,000 MG in sodium chloride 0.9% (plus) 50 ML 100 MG IV (07:20)
--- NOTE | 2022-03-07 07:34 | XRR_ITS ---
PROCEDURE INFORMATION: Exam: XR Chest Exam date and time: 03/07/2022 7:38 AM Age: 66 years old Clinical indication: Device placement; Ett placement (vent status); Additional info: Intubation TECHNIQUE: Imaging protocol: Radiologic exam of the chest. Views: 1 view. COMPARISON: CR XR chest 1V portable [id number] 02/28/2022 3:02 PM FINDINGS: Tubes, catheters and devices: Endotracheal tube just below the thoracic inlet approximately 7 to 8 cm above the bladimir. Lungs: The lung parenchyma is clear. Pleural spaces: No pneumothorax. No pleural effusion. Heart/Mediastinum: The cardiomediastinal silhouette is within normal limits. Bones/joints: Unremarkable. Other findings: Patient is rotated on the radiograph. XR/XR chest 1V portable [id number] IMPRESSION: No acute cardiopulmonary abnormality identified.
[2022-03-07] MEDS: heparin, porcine 1,000 unit/mL INJ 10 mL 10000 UNIT IRRIGATION (08:03)
--- NOTE | 2022-03-07 08:43 | PM.OP ---
Operative Report Date of procedure: March 07, 2022 Pre-op diagnosis: Preop Diagnosis Tonsillar cancer Post-op diagnosis: The same Procedure done: 1. Placement of PowerPort via left subclavian vein 2. Fluoroscopic guidance and interpretation for placement of catheter 3. Percutaneous endoscopic guided gastrostomy feeding tube placement Implants: Right upper chest PowerPort Upper abdominal peg tube 20 Gabonese Surgeon: Vinicius Mead MD Process Engineering Intern: body technician/painter Johana NOE tech Shefali Circulating nurse Sue Anesthesia: General (Dr. Hunt/GALI Mireles and COAGULATION OPERATOR student Robin) Procedure: Patient was identified in the holding area and taken to the operative room and placed in supine position patient was intubated by the anesthesia provider ,both arms were tucked,Time-out was done verifying the patient's name/date of /planned procedure and destination after the procedure, all were in agreement. SCDs confirmed to be functioning, preoperative antibiotics administered per protocol, and beta nai protocol was confirmed, appropriate positioning of the patient was done by me and the staff. Prior to start the port placement procedure I elected to perform a chest x-ray that did show appropriate position of the endotracheal tube and no evidence of pneumothorax. Also I did talk with Dr. Zhang nutrition services manager on-call for potential removal of the Holter monitor during the procedure and replace it at the end and he did agree on that as it did not show to cause any harm to the patient. Medications were reviewed to assess for anticoagulant usage. Risks and benefits and prevention of central line associated blood stream infection (CLABSI) were discussed with the patient/CPOA, and a consent was obtained. Monitors were in place and monitored throughout the procedure. All necessary supplies were available prior to start. Hand hygiene was completed prior to starting. Maximum barrier technique was utilized including a sterile gown, sterile gloves with a hat and mask. Site was was prepped with [chlorhexidine] and a full body drape was placed. 5 mL of 2% lidocaine was injected into the skin with a 25 gauge needle. Prep& drape was done under the usual sterile technique, lidocaine 2% was injected at the site of the stick, started by right sub-clavian vein stick that retrieved venous blood was obtained from the first stick, a guide wire was then threaded and under the guidance of fluoroscopy position was confirmed to be in the IVC and my interpretation, there were no PVC changes, at that point the guide wire was secured to the drapes with a hemostat and the needle was taken out, attention was then deviated towards creation of a pocket for the port were lidocaine 2% was injected using an 15 blade knife skin incision was created dissection using the Bovie to create a pocket for the Power Port to be accommodated. Hemostasis was secured, after the port being appropriately flushed it was inserted into the pocket and a tunneler was used to accommodate the catheter of the port catheter to be delivered through the incision first created at the site of the stick, at that point under fluoroscopy an estimated length was measured for the catheter and was cut at the designed level, followed by that a dilator with the sheath introduced onto the guide wire the dilator and the wire were retrieved and the catheter of the port was introduced via the sheath where it was peeled off and the catheter maintained to be in the SVC that was confirmed with fluoroscopy, and the fluoroscopy interpretation was done by me throughout the entire procedure. The port was kept in its pocket,3-0 Vicryl deep subdermal interrupted sutures, skin was then closed by 4-0 Monocryl as subcuticular closure.The port was appropriately flushed with heparin and venous blood was withdrawn without difficulty.The stick site was closed by 4-0 Monocryl and Dermabond was used followed by dressing.Count was correct at the end of the procedure.Patient tolerated the procedure well was taken to the recovery area. Attention now was deviated towards the PEG tube placement; Patient continued to be in supine position after a bite block was placed in her mouth, started by introducing the EGD via the mouth under direct visualization, the patient was continuously monitored via front desk monitor, I was able to assess the esophagus stomach and duodenum till the second part. GE junction at 40 cm from the incisors,the remaining of the examination was unremarkable except for prepyloric gastritis. I was able to identify a good light reflex through the anterior abdominal wall, corresponding to appropriate indentation of the examining finger At this point prep and drape of the anterior abdominal wall was done under the usual sterile technique, sterile gowns and gloves were used, lidocaine was infiltrated at the site of the needle insertion, my speech assistant held onto the EGD, under direct visualization a needle with the sheath was inserted by me that come with the PEG kit, once the needle and catheter were inserted into the inflated stomach, a needle was taken out, and through the catheter the blue loop wire introduced through the catheter, and via the working channel of the EGD, the retrieval device was inserted under direct visualization, the blue loop was caught by the retrieval device, at this point the scope was taken out and a firm conductor/brakeman was continued to be applied onto the blue loop wire, the blue loop was then released and the PEG tube was tightened to it outside the patient's mouth, and with the remaining of the blue loop wire was Outside the abdominal wall, I was able to pull the PEG down all the way to the stomach, and have it placed in a good position at the level of 4-5 cm at the skin. The EGD was reintroduced by me, there was no evidence of bleeding, good spinning of the PEG tube was witnessed The scope was then retrieved and on my way back there was no active bleeding at the site of the growth or around the endotracheal tube. The scope was retrieved under direct visualization and gas was deflated,no biopsies were obtained at that point. The PEG tube base and clamp were applied and the PEG tube was connected to gravity. Patient tolerated the procedure well and was taken to the recovery area after being extubated I was present for the whole entire procedure
--- NOTE | 2022-03-07 09:17 | SUR.PHASEI ---
0855 PT TO PACU 5 PT AWAKES TO VOICE, GOOD RESP EFFORT, PT ON 8L MASK, PT GURGLING AND COUGHING SUCTIONED WITH YANKER SX SATS 100% ON MASK, MONITOR SR NO ECTOPY NOTED RT SUBCLAVIAN CHEST PORT SITE D/I HOB AT 40 DEGREES, ABDOMEN SOFT WITH DRESSING TO ABDOMEN IN PLACE ABD BINDER , BILAT SCDS ON IV#20 TO LT FA, PATENT TO NS 100ML UP AT KVO RATE PER GRAVITY, ID BRACELET TO RT WRIST, PT ID'D WITH 2 IDENTIFIERS [id number] PT MORE ALERT COUGHING UP PINK TINGED SECRETIONS IN MODERATE AMT PT USING YANKER SX PER SELF AT TIMES, HOB AT 40 DEGREES , PT DENIES PAIN VSS RESP EVEN AND UNLABORED, PT ORIENTED X
--- NOTE | 2022-03-07 09:39 | SUR.PHASEI ---
0932 PT AWAKE ALERT TALKATIVE PT COUGHS ONLY OCCASIONALLY , HAS NO GURGLING WITH RESP NOW, PT STILL USES YANKER SX NEEDED FOR LT PINK SECRETIONS, DRESSING X 2 SITE D/I PT TO OPS ROOM 3 HANDOFF AT BEDSIDE WITH ASPEN RN, PT FAMILY IN ROOM. PT ON 2LNC VSS.
--- NOTE | 2022-03-07 15:28 | ANE.PACU2 ---
Inpatient post-anesthesia follow up: Airway intact: Yes Vital signs: Temperature 98.7 F Pulse Rate 99 Respiratory Rate 20 Blood Pressure 127/76 Pulse Oximetry 97 Oxygen Delivery Me thod Room Air Oxygen Flow Rate 2 Fraction of Inspir ed Oxygen Hydration adequate: Yes Nausea and vomiting: No Pain level: 1 Mental status: Baseline
== END 2022-03-07 10:38 | disposition home or self-care (01) ==
PROVIDERS: PCP Family Medicine; Visit Provider Surgery
PROC: 0DH63UZ Insertion of Feeding Device into Stomach, Percutaneous Approach (ICD-10-PCS; CPT 43246; principal; 2022-03-07 07:00)
PROC: (CPT 36561; 2022-03-07 07:00)
DX: C09.9 Malignant neoplasm of tonsil, unspecified (principal); J44.9 Chronic obstructive pulmonary disease, unspecified; I25.10 Atherosclerotic heart disease of native coronary artery without angina pectoris; Z95.5 Presence of coronary angioplasty implant and graft; I10 Essential (primary) hypertension; E11.9 Type 2 diabetes mellitus without complications; E78.5 Hyperlipidemia, unspecified; Z86.73 Personal history of transient ischemic attack (TIA), and cerebral infarction without residual deficits; Z79.82 Long term (current) use of aspirin; G47.33 Obstructive sleep apnea (adult) (pediatric)
CPT/HCPCS: 36561; 36416; 71045; 76000; 77001; 82962; 94640; C1788; J1100; J1644; J2250; J2370; J2405; J2704; J3010; J3490; J7030

== ENCOUNTER → 2022-03-13 07:44 | Outpatient (BNVA) | payer OTHER, MEDICARE, SELFPAY | PROVIDERS: PCP Family Medicine; Visit Provider Nurse Practitioner | DX: Z51.0 Encounter for antineoplastic radiation therapy (principal); C09.8 Malignant neoplasm of overlapping sites of tonsil; J43.2 Centrilobular emphysema; C77.0 Secondary and unspecified malignant neoplasm of lymph nodes of head, face and neck; N40.0 Benign prostatic hyperplasia without lower urinary tract symptoms; F17.210 Nicotine dependence, cigarettes, uncomplicated; Z99.81 Dependence on supplemental oxygen; E11.9 Type 2 diabetes mellitus without complications; Z79.4 Long term (current) use of insulin; R11.2 Nausea with vomiting, unspecified; F41.9 Anxiety disorder, unspecified; Z79.899 Other long term (current) drug therapy | CPT/HCPCS: 77336; 77386; 99024; 99214; 99215 ==

== ENCOUNTER 2022-03-15 11:31 | Emergency (ER) | payer OTHER, SELFPAY ==
[2022-03-15 11:54] VITALS: BMI 26.1
--- NOTE | 2022-03-15 13:42 | W.ED.GENADLT ---
HPI - General Adult General: Chief complaint: General Medical Stated complaint: FEEDING TUBE LEAKING Time Seen by Provider: 03/15/22 13:19 History of Present Illness: Patient is a 66-year-old male comes to the ED with feeding tube issues. Patient had a gastrostomy feeding tube placed on March 07. Since tubes been placed he has had a lot of drainage outside of the tube or around surgical wound site. He describes some of the drainage as stomach contents. Patient has not done any feedings through PEG tube yet. He is still doing oral intake and had food via p.o. today and drainage around PEG tube was worse today. He has a follow-up appointment with Dr. Mead on 03/13 for same complaint. Associated symptoms: Deny chest pain, dyspnea, headache(s), nausea, rash, palpitations or vomiting Review of Systems Narrative: PEG tube complaints Const: Denies: fever(s), chills or fatigue Eyes: Denies: change in vision or eye discomfort ENMT: Denies: throat pain, odynophagia, nasal discharge or nasal congestion Card: Denies: chest pain, palpitations, edema, swelling of feet/ankles, dyspnea on exertion or orthopnea Resp: Denies: dyspnea, productive cough or non-productive cough GI: Denies: abdominal pain, nausea, vomiting, diarrhea, constipation or hematochezia : Denies: flank pain, difficulty urinating, dysuria or hematuria Musc: Denies: neck pain, back pain or extremity swelling Skin/Breast: Denies: rash or new lesions Neuro: Denies: headache(s), numbness in extremities or weakness in extremities PFSH ED PFSH: Medical History Acute exacerbation of chronic obstructive pulmonary disease COPD (chronic obstructive pulmonary disease) Coronary artery disease Diabetes mellitus Hyperlipidemia Hypertension GIDEON (obstructive sleep apnea) Squamous cell carcinoma of right tonsil Stroke Throat cancer Surgical History History of heart artery stent 1996 History of surgery on arm History of surgery on lower extremity Family History Mother Cancer lung Father Stroke Sister Cancer lung Other Bleeding disorder Clotting disorder Diabetes Hyperlipidemia Denies family history of CAD (coronary artery disease) Dementia Psychiatric illness Chronic kidney disease (CKD) Suicide Anesthesia complication Lung disease Hypertension Social History Smoking and tobacco status: current every day smoker cigarettes Packs smoked per day: 1.5 Alcohol intake: never Lives independently: Yes Household members: family Physical Exam Const: COMMON NORMALS: no acute distress, patient oriented x3 and alert GENERAL APPEARANCE: cooperative HENMT: COMMON NORMALS: normocephalic HEAD & SCALP: normocephalic MOUTH: Normal oral and palatal mucosa present THROAT: posterior oropharynx normal and uvula midline Neck/C-Spine: COMMON NORMALS: supple GENERAL: Yes normal visual inspection Resp: COMMON NORMALS: normal respiratory effort, No retractions, No use of accessory muscles and clear to auscultation bilaterally AUSCULTATION: clear to auscultation bilaterally Cardio: COMMON NORMALS: regular rate, regular rhythm, S1 normal heart sound present, S2 normal heart sound present, No gallops present (Cardio), No clicks present (Cardio), No murmurs present (Cardio) and Peripheral pulses 2+ throughout RATE: regular rate RHYTHM: regular rhythm HEART SOUNDS: S1 normal heart sound present and S2 normal heart sound present PERIPHERAL PULSES: Peripheral pulses 2+ throughout GI: COMMON NORMALS: Normal to inspection, nondistended, normoactive bowel sounds present, Soft to palpation, non-tender and no masses INSPECTION: Yes GI tube present PALPATION: Yes Soft to palpation OTHER: PEG tube in place and intact. Bag bag attached to PEG tube has stomach contents present. Skin around PEG tube appears a little irritated but no signs of any cellulitis or infection noted. : COMMON NORMALS: Yes no CVA tenderness BLADDER/KIDNEY EXAM: Yes no CVA tenderness Back/Pelvis: COMMON NORMALS: no CVA tenderness Extremity: COMMON NORMALS: normal to inspection Neuro: COMMON NORMALS: patient oriented x3 SENSORIUM/ORIENTATION: Yes alert GAIT: Yes Normal gait present Skin: GENERAL SKIN EXAM: dry skin Course Consultations: Consultation #1: I contacted Dr. Mead and told about patient case. Dr. Mead was the one who placed the PEG tube and saw patient 2 days ago for same complaint. He states that patient needs to cut back on oral intake and the oral intake is what is causing some leaking around PEG tube site. Patient needs to start tube feedings. He told me that he will have the office set an appointment up with patient tomorrow to discuss PEG tube education and coordinating feeding supplies to patient as well. Time: 14:00 MDM - General Adult Medical Decision Making Patient is a 66-year-old male comes to the ED with feeding tube issues. Patient had a gastrostomy feeding tube placed on March 07. Since tubes been placed he has had a lot of drainage outside of the tube or around surgical wound site. He describes some of the drainage as stomach contents. Patient has not done any feedings through PEG tube yet. He is still doing oral intake and had food via p.o. today and drainage around PEG tube was worse today. Vitals are stable. Patient appears nontoxic in no acute distress. PEG tube is intact and there is a little bit of irritation of skin around surgical site but no signs of any cellulitis or infection noted. I contacted Dr. Mead and told about patient case. Dr. Mead was the one who placed the PEG tube and saw patient 2 days ago for same complaint. He states that patient needs to cut back on oral intake and the oral intake is what is causing some leaking around PEG tube site. Patient needs to start tube feedings. He told me that he will have the office set an appointment up with patient tomorrow to discuss PEG tube education and coordinating feeding supplies to patient as well. Patient was stable for discharge home and told to cut down on any oral feedings and to contact Dr. Mead tomorrow for further instruction and coordinating supplies for feeding tube. Patient understood and agreed with plan. Discharge Plan Discharge Patient Disposition: Home Clinical Impression: Leaking PEG tube Condition: Stable Prescriptions: No Action prochlorperazine maleate [Compazine] 10 mg tablet 10 mg PO Q6H PRN (Reason: nausea and vomiting) Qty: 30 5RF lorazepam 0.5 mg tablet 0.5 mg PO TID PRN (Reason: nausea and vomiting) Qty: 30 1RF Rx Instructions: for SEVERE NAUSEA/VOMITING, anxiety and or insomnia Lidocaine Viscous 2 % solution 5 ml mucous membrane Q6H PRN (Reason: Pain) Qty: 100 0RF oxycodone-acetaminophen [Percocet] 5-325 mg tablet 1 - 2 tab PO .q4-6hr PRN (Reason: pain) 30 Days Qty: 60 0RF levofloxacin 500 mg tablet 500 mg PO DAILY Qty: 7 0RF albuterol sulfate 90 mcg/actuation HFA aerosol inhaler 2 inh INHALATION Q4H PRN (Reason: shortness of breath or wheezing) Qty: 18 0RF acetaminophen 500 mg Tablet 1,000 mg PO BID cyanocobalamin (vitamin B-12) [Vitamin B-12] 1,000 mcg Tablet 1,000 mcg PO QAM metformin 1,000 mg Tablet 500 mg PO QAM rosuvastatin [Crestor] 20 mg Tablet 10 mg PO QAM cholecalciferol (vitamin D3) [Vitamin D3] 50 mcg (2,000 unit) Tablet 2,000 unit PO QPM Eliquis 5 mg Tablet 5 mg PO BID Hold Instructions: Resume on 03/11/22. Spiriva Respimat 2.5 mcg/actuation Mist 2 inh INHALATION QAM mometasone-formoterol 200-5 mcg/actuation Hfa Aerosol Inhaler 2 puff INHALATION BID polyethylene glycol 3350 [Miralax] 17 gram Powder In Packet 17 g PO DAILY PRN (Reason: Constipation) aspirin 81 mg Tablet,Delayed Release (Dr/Ec) 81 mg PO DAILY Qty: 30 0RF Hold Instructions: Resume on 03/12/22. Discharge Orders: Discharge ED (Routine); Ordered 03/15/22 Ordered By: Daniel Rojas Referrals: Katrina Gaytan MD [Primary Care Provider] - Discharge Diet: Regular Discharge Activity: Increase activity as tolerated Patient Instructions: How to Use and Care for Your PEG Tube (ED) Activity Restrictions/Additional Instructions: Contact Dr. Mead office tomorrow morning and they will let you know the appointment time for telehealth visit tomorrow. Dr. Mead office will coordinate PEG tube feeding supplies and education. return to the ER or your medical provider if condition worsens. Please read and understand discharge instructions. Thank you for choosing [facility] for your healthcare needs today. Please realize this is an emergency room and that we are providing you with a medical screening exam and this may not be complete and all inclusive of all the testing and or work up that you may need to determine your ailment or severity of your illness. It is very important that you follow up as instructed or that you return to the Emergency Department should you have concerns or if your condition changes or worsens in any way. Coding Level of Care Code ED Pipe Bowl Paint Trimmer for Bernice Fwd Exam Comprehensive
== END 2022-03-15 15:00 | disposition home or self-care (01) ==
PROVIDERS: Emergency Provider Physician Assistant; PCP Family Medicine
DX: K94.29 Other complications of gastrostomy (principal); Z79.01 Long term (current) use of anticoagulants; Z79.84 Long term (current) use of oral hypoglycemic drugs; Z79.82 Long term (current) use of aspirin; F17.210 Nicotine dependence, cigarettes, uncomplicated; J44.9 Chronic obstructive pulmonary disease, unspecified; I25.10 Atherosclerotic heart disease of native coronary artery without angina pectoris; E11.9 Type 2 diabetes mellitus without complications; E78.5 Hyperlipidemia, unspecified; I10 Essential (primary) hypertension; Z85.89 Personal history of malignant neoplasm of other organs and systems
CPT/HCPCS: 99282

== ENCOUNTER → 2022-03-16 16:13 | Outpatient (BNVA) | payer OTHER, MEDICARE, SELFPAY | PROVIDERS: PCP Family Medicine; Visit Provider Surgery | DX: K94.23 Gastrostomy malfunction (principal) | CPT/HCPCS: 99212 ==

== ENCOUNTER 2022-03-17 08:07 | Oncology outpatient (recurring) (ONCR) | payer OTHER, SELFPAY ==
[2022-03-01 10:05] LABS: Basophils # 0.1 10^3/uL (0.0-0.1); Basophils % 0.5 %; Eosinophils # 0.2 10^3/uL (0.0-0.8); Eosinophils % 0.9 %; Hematocrit 36.3 % (42.0-52.0); Hemoglobin 11.6 g/dL (11.7-16.6); Lymphocytes # 3.3 10^3/uL (0.8-4.8); Lymphocytes % 17.1 %; Mean Corpuscular Hemoglobin 28.1 pg (28.0-34.0); Mean Corpuscular Volume 87.9 fl (80-94); Mean Platelet Volume 9.2 fL (7.4-10.4); Monocytes # 1.2 10^3/uL (0.2-0.9); Monocytes % 6.3 %; Neutrophils # 14.48 10^3/uL (1.8-7.7); Neutrophils % 74.4 %; Nucleated Red Blood Cells % 0 %; Platelet Count 567 10^3/cmm (130-400); Red Blood Count 4.13 10^6/uL (4.1-5.3); Red Cell Distribution Width 14.7 % (12.1-15.1); White Blood Count 19.5 10^3/uL (4.0-10.0)
[2022-03-01 10:23] LABS: Alanine Aminotransferase 6 U/L (0-41); Albumin Level 2.8 g/dL (3.5-5.2); Alkaline Phosphatase 113 U/L (40-130); Anion Gap 14.5 (5-19); Aspartate Amino Transferase 10 U/L (0-40); Blood Urea Nitrogen 14 mg/dL (8-23); Calcium 9.4 mg/dL (8.5-10.5); Carbon Dioxide 29 mmol/L (22-29); Chloride 98 mmol/L (98-107); Globulin 3.8 g/dL (1.3-4.6); Glomerular Filtration Rate 166.9 mL/min (90-130); Glucose 97 mg/dL (65-115); Osmolality Calculated 286 mOsm/kg (285-295); Potassium 3.5 mmol/L (3.5-5.1); Sodium 138 mmol/L (136-145); Total Bilirubin 0.2 mg/dL (0.15-1.2); Total Protein 6.6 g/dL (6.6-8.7)
[2022-03-02 14:42] LABS: Leukemia Profile (BBPL) See Report
--- NOTE | 2022-03-08 | CT_ITS ---
Radiation Therapy Planning CT images; total exam DLP: 887.97 mGy-cm MTDD
[2022-03-13 08:19] VITALS: BMI 26.3
[2022-03-13 08:22] LABS: Basophils # 0.1 10^3/uL (0.0-0.1); Basophils % 0.3 %; Eosinophils # 0.3 10^3/uL (0.0-0.8); Eosinophils % 1.7 %; Hematocrit 33.7 % (42.0-52.0); Hemoglobin 10.6 g/dL (11.7-16.6); Lymphocytes # 2.1 10^3/uL (0.8-4.8); Lymphocytes % 11.6 %; Mean Corpuscular HGB Conc 31.5 g/dL (30.0-36.0); Mean Corpuscular Hemoglobin 27.7 pg (28.0-34.0); Mean Corpuscular Volume 88.2 fl (80-94); Monocytes # 0.9 10^3/uL (0.2-0.9); Monocytes % 5.2 %; Neutrophils # 14.15 10^3/uL (1.8-7.7); Neutrophils % 80.2 %; Nucleated Red Blood Cells % 0 %; Platelet Count 490 10^3/cmm (130-400); Red Blood Count 3.82 10^6/uL (4.1-5.3); Red Cell Distribution Width 14.2 % (12.1-15.1); White Blood Count 17.6 10^3/uL (4.0-10.0)
[2022-03-13] MEDS: magnesium sulfate premix 2 GM/50 ML PIGGYBACK IV (08:53)
[2022-03-13] MEDS: sodium chlor 0.9% + KCl 20 mEq 20 MEQ/1,000 ML BAG 500 MEQ IV (08:53)
[2022-03-13 08:55] LABS: Alanine Aminotransferase 23 U/L (0-41); Albumin Level 2.3 g/dL (3.5-5.2); Alkaline Phosphatase 145 U/L (40-130); Anion Gap 10.3 (5-19); Aspartate Amino Transferase 30 U/L (0-40); Blood Urea Nitrogen 8 mg/dL (8-23); Carbon Dioxide 35 mmol/L (22-29); Chloride 96 mmol/L (98-107); Globulin 4.1 g/dL (1.3-4.6); Glomerular Filtration Rate 166.9 mL/min (90-130); Glucose 118 mg/dL (65-115); Osmolality Calculated 285 mOsm/kg (285-295); Potassium 3.3 mmol/L (3.5-5.1); Sodium 138 mmol/L (136-145); Total Bilirubin 0.3 mg/dL (0.15-1.2); Total Protein 6.4 g/dL (6.6-8.7)
[2022-03-13 12:22] VITALS: BP 112/72; PULSE 108; RESP 18; TEMP 36.4; O2SAT 97
[2022-03-14] MEDS: diphenhydrAMINE 50 mg/mL SDV 1mL 25 MG IVP (11:32)
[2022-03-14] MEDS: famotidine 20 mg/2 mL INJ IVP (11:33)
[2022-03-14] MEDS: OLANZapine 5 mg TABLET PO (11:41)
[2022-03-14] MEDS: fosaprepitant 150 MG in sodium chloride 0.9% 150 ML 300 MG IV (11:43)
[2022-03-14] MEDS: palonosetron 0.25 mg/5 mL SDV IVP (11:49)
[2022-03-14] MEDS: SODIUM CHLORIDE 0.9% IV (12:39)
[2022-03-14] MEDS: CISPLATIN IV (12:39)
[2022-03-14] MEDS: FUROsemide 10 mg/mL SDV 2mL 20 MG IVP (13:40)
[2022-03-14] MEDS: potassium chloride 20 MEQ in sodium chloride 0.9% 500 ML 500 MEQ IV (13:40)
== END 2022-03-24 23:59 | disposition home or self-care (01) ==
PROVIDERS: Internal Medicine Hematology & Oncology; Nurse Practitioner; PCP Family Medicine; Visit Provider Radiology Radiation Oncology
DX: Z53.9 Procedure and treatment not carried out, unspecified reason (principal)
CPT/HCPCS: 77300; 77301; 77334; 77338; 77386; 77470; 80053; 85025; 87070; 87075; 87205; 88184; 88185; 96365; 96366; 96367; 96368; 96375; 96413; 99212; 99214; J1100; J1200; J1453; J1940; J1956; J2405; J2469; J2704; J3475; J3480; J3490; J7030; J7040; J9060

== ENCOUNTER 2022-03-19 18:48 | Inpatient (IN) | payer OTHER, SELFPAY ==
[2022-03-19] VITALS (7 sets, daily range): BP systolic 85–119; BP diastolic 45–93; PULSE 101–121; RESP 16–21; TEMP 36.4–36.7; O2SAT 89–97; BMI 26.1
--- NOTE | 2022-03-19 18:51 | W.ED.GENADLT ---
HPI - General Adult General: Chief complaint: General Medical Stated complaint: PEG TUBE BLEED Time Seen by Provider: 03/19/22 18:50 History of Present Illness: Mr. Siegel was is a 66-year-old gentleman with complex past medical history including percutaneous gastrostomy tube placement on 03/07 who presents to the emergency department due to concern over bleeding from the site. He noticed nonpainful onset of bleeding earlier today. Otherwise has been a chronic baseline. No active bleeding upon arrival. Unsure of how much blood loss. He thinks he is back on his Eliquis and aspirin. No other specific changes in health, exacerbating, or alleviating factors identified. Onset (ago): hour(s) Review of Systems General: Reports: 10 or more systems reviewed and unremarkable except in HPI and below PFSH ED PFSH: Medical History Acute exacerbation of chronic obstructive pulmonary disease Cellulitis COPD (chronic obstructive pulmonary disease) Coronary artery disease Diabetes mellitus Hyperlipidemia Hypertension GIDEON (obstructive sleep apnea) Squamous cell carcinoma of right tonsil Stroke Throat cancer Surgical History History of heart artery stent 1996 History of surgery on arm History of surgery on lower extremity Family History Mother Cancer lung Father Stroke Sister Cancer lung Other Bleeding disorder Clotting disorder Diabetes Hyperlipidemia Denies family history of CAD (coronary artery disease) Dementia Psychiatric illness Chronic kidney disease (CKD) Suicide Anesthesia complication Lung disease Hypertension Social History Smoking and tobacco status: current every day smoker (1 ppd, smoked since 1971) cigarettes Packs smoked per day: 1.5 Alcohol intake: never Lives independently: Yes Household members: family Physical Exam Const: COMMON NORMALS: alert GENERAL APPEARANCE: cooperative and well developed HENMT: COMMON NORMALS: normocephalic and atraumatic HEAD & SCALP: normocephalic and atraumatic Eye: COMMON NORMALS: conjunctivae normal CONJUNCTIVA: Yes conjunctivae normal SCLERA: sclerae normal Neck/C-Spine: COMMON NORMALS: supple GENERAL: Yes trachea midline Resp: COMMON NORMALS: normal respiratory effort EFFORT & INSPECTION: Yes able to speak in complete sentences Cardio: COMMON NORMALS: regular rate and regular rhythm RATE: regular rate RHYTHM: regular rhythm GI: COMMON NORMALS: Soft to palpation PALPATION: Yes Soft to palpation, Yes Tenderness to palpation present (GI), No Guarding due to palpation present (GI) and No Rigid due to palpation OTHER: gastrostomy site without hemorrhage, significant area of skin irritation Extremity: GENERAL: Yes normal exam except as noted and No edema Neuro: COMMON NORMALS: moves all extremities SENSORIUM/ORIENTATION: Yes alert and No Orientation impaired Psych: COMMON NORMALS: mental status grossly normal and Normal thought process present THOUGHT PROCESS: Normal thought process present Course Vital Signs: Vital signs: Vital Signs Temperature 98.3 F 03/22/22 14:15 Pulse Rate 95 03/22/22 14:15 Respiratory Rate 16 03/22/22 14:15 Blood Pressure 155/90 03/22/22 14:15 Pulse Oximetry 96 03/22/22 14:15 Oxygen Delivery Me thod 03/22/22 11:19 Oxygen Flow Rate 6 03/20/22 14:30 [facility] - General Adult Medical Decision Making 66-year-old gentleman with concerns over leaking and bleeding G-tube. On exam no active hemorrhage however there is significant area of skin irritation. Leukocytosis and normocytic anemia on hematologic panel. Dehydration and hypokalemia on metabolic panel. No lobar consolidation or pneumothorax on chest x-ray. Protonix and fluids as well as potassium and magnesium replenishment ordered. CT imaging notable for erosion of G-tube bumper. General surgery service consulted and came to evaluate patient. Though the patient does have some postoperative free air his abdominal exam is not consistent with leaking gastric contents into the abdominal cavity. I suspect blood loss is secondary to gastric oozing secondary to postoperative procedure and Eliquis use. Patient admitted for further management. Medical Records I reviewed the patient's medical records. Lab Data I reviewed the patient's lab results. : 03/22/22 01:43 03/22/22 01:43 Radiology Impressions Chest X-Ray 03/19/22 19:15 IMPRESSION: 1. Interval placement of a right subclavian Port-A-Cath with the tip in the superior vena cava. 2. Linear atelectasis or scarring in right lower lobe. 3. Incidental/nonacute findings are listed in the report. The Abdomen/Pelvis CTA 03/19/22 20:19 IMPRESSION: 1. Interval placement of a percutaneous gastrostomy tube. The buried bumper has eroded through the anterior gastric wall and abuts the posterior surface of the anterior abdominal wall. Free intraperitoneal air and inflammation around the bumper as well as an additional few foci of inflammation more laterally in the left upper quadrant adjacent to the left lobe of the liver. 2. Mildly hyperdense focus in the right bladder base. This is better visualized compared with the prior imaging studies, possibly due to better bladder distention. It is uncertain whether this may represent a small bladder stone versus a bladder mass. Recommend clinical correlation and consider further evaluation with cystoscopy. 3. No evidence for gastrointestinal bleed. Nuclear medicine imaging with tagged red blood cell scan may be obtained for further evaluation if clinical concern for gastrointestinal bleed persists. 4. Multiple areas of fatty infiltration of the liver. 5. Atherosclerotic disease with multilevel stenoses in the pelvis. No occlusion, thrombosis, extravasation, dissection, or aneurysm. 6. Variant arterial anatomy as described in the report. 7. Incidental/nonacute findings are listed in the report. COMMENTS: THIS REPORT CONTAINS FINDINGS THAT MAY BE CRITICAL TO PATIENT CARE. The findings were verbally communicated via telephone conference with Dr. Giron at 9:53 PM CDT on 03/19/2022. The findings were acknowledged and understood. ADDENDUM: 03/19/22 [id number] THIS REPORT CONTAINS FINDINGS THAT MAY BE CRITICAL TO PATIENT CARE. The findings were verbally communicated via telephone conference with the patient's surgeon at 11:08 PM CDT on 03/19/2022. The findings were acknowledged and understood. Specifically, position of the gastric tube outside the gastric lumen within a largely contained perforation was discussed. Gastrografin Study 03/21/22 08:00 IMPRESSION: 1. Patent esophagus. 2. Prominent gastric mucosa suggesting mild gastritis. No gastric mass or ulceration. No duodenal ulcer. Barium spills freely into the proximal jejunum. Laboratory Results WBC 17.3 10^3/uL (4.0-10.0) H 03/19/22 19:17 RBC 2.73 10^6/uL (4.1-5.3) L 03/19/22 19:17 Hgb 7.7 g/dL (11.7-16.6) L 03/19/22 19:17 Hct 24.2 % (42.0-52.0) L 03/19/22 19:17 MCV 88.6 fl (80-94) 03/19/22 19:17 MCH 28.2 pg (28.0-34.0) 03/19/22 19:17 MCHC 31.8 g/dL (30.0-36.0) 03/19/22 19:17 RDW 14.3 % (12.1-15.1) 03/19/22 19:17 Plt Count 448 10^3/cmm (130-400) H 03/19/22 19:17 MPV 9.1 fL (7.4-10.4) 03/19/22 19:17 Neut % (Auto) 84.8 % 03/19/22 19:17 Lymph % (Auto) 8.8 % 03/19/22 19:17 [place] % (Auto) 3.4 % 03/19/22 19:17 Eos % (Auto) 1.2 % 03/19/22 19:17 Baso % (Auto) 0.1 % 03/19/22 19:17 Neut # (Auto) 14.67 10^3/uL (1.8-7.7) H 03/19/22 19:17 Lymph # (Auto) 1.5 10^3/uL (0.8-4.8) 03/19/22 19:17 [place] # (Auto) 0.6 10^3/uL (0.2-0.9) 03/19/22 19:17 Eos # (Auto) 0.2 10^3/uL (0.0-0.8) 03/19/22 19:17 Baso # (Auto) 0.0 10^3/uL (0.0-0.1) 03/19/22 19:17 Nucleated RBC % (auto) 0.2 % 03/19/22 19:17 Nucleated RBCs # 0.0 /100WBC 03/19/22 19:17 PT 20.20 SECONDS (12.1-14.9) H 03/19/22 19:17 INR 1.69 (0.8-1.2) H 03/19/22 19:17 APTT 34.9 SECONDS (23.9-36.7) 03/19/22 19:17 Sodium 137 mmol/L (136-145) 03/19/22 19:17 Potassium 2.6 mmol/L (3.5-5.1) L* 03/19/22 19:17 Chloride 87 mmol/L (98-107) L 03/19/22 19:17 Carbon Dioxide 39 mmol/L (22-29) H 03/19/22 19:17 Anion Gap 13.6 (5-19) 03/19/22 19:17 BUN 42 mg/dL (8-23) H 03/19/22 19:17 Creatinine 1.0 mg/dL (0.7-1.2) 03/19/22 19:17 GFR Calculation 75.0 mL/min (90-130) L 03/19/22 19:17 Glucose 135 mg/dL (65-115) H 03/19/22 19:17 Calculated Osmolality 297 mOsm/kg (285-295) H 03/19/22 19:17 Lactic Acid 2.0 mmol/L (0.5-2.2) 03/19/22 19:17 Calcium 8.6 mg/dL (8.5-10.5) 03/19/22 19:17 Magnesium 1.8 mg/dL (1.7-2.3) 03/19/22 19:17 Iron 44 ug/dL (59-158) L 03/19/22 19:17 TIBC 187 mcg/dl 03/19/22 19:17 % Saturation 23.5 % (20-50) 03/19/22 19:17 Unsat Iron Binding 143 ug/dL (112-347) 03/19/22 19:17 Ferritin 359 ng/mL (30-400) 03/19/22 19:17 Total Bilirubin 0.3 mg/dL (0.15-1.2) 03/19/22 19:17 AST 29 U/L (0-40) 03/19/22 19:17 ALT 23 U/L (0-41) 03/19/22 19:17 Alkaline Phosphatase 95 U/L (40-130) 03/19/22 19:17 C-Reactive Protein 75.1 mg/L (0.0-4.9) H 03/19/22 19:17 Total Protein 5.6 g/dL (6.6-8.7) L 03/19/22 19:17 Albumin 2.3 g/dL (3.5-5.2) L 03/19/22 19:17 Globulin 3.3 g/dL (1.3-4.6) 03/19/22 19:17 Procalcitonin 0.40 ng/mL (0-0.5) 03/19/22 19:17 Blood Type B Positive 03/19/22 19:17 Rho(D) Type Positive 03/19/22 19:17 Antibody Screen Negative 03/19/22 19:17 Crossmatch See Detail 03/19/22 19:17 Critical Care Time Critical Care Time: Critical Care Time: Yes Total Critical Care Time: 35 Attestation: Due to a high probability of clinically significant, possibly life threatening deterioration, the patient required my highest level of attention and preparedness to intervene emergently and I personally spent this critical care time directly and personally managing the patient. This critical care time included obtaining a history; examining the patient; pulse oximetry; ordering and review of laboratory and imaging studies; arranging urgent treatment with development of a management plan; evaluation of patient's response to treatment; frequent reassessment; and, discussions with other providers as applicable. It was exclusive of separately billable procedures. Primary system involved is vascular and GI. Discharge Plan Discharge Patient Disposition: Admitted As Inpatient Admit Provider: Barrett Burks Clinical Impression: Acute blood loss as cause of postoperative anemia, Leaking PEG tube, Hypokalemia Condition: Stable Discharge Diet: Full LIquid Discharge Activity: Resume usual activity Coding Level of Care Code ED Plant Puller for Bernice Day
--- NOTE | 2022-03-19 19:15 | XRR_ITS ---
PROCEDURE INFORMATION: Exam: XR Chest Exam date and time: 03/19/2022 7:20 PM Age: 66 years old Clinical indication: Shortness of breath; Additional info: Hypoxia TECHNIQUE: Imaging protocol: Radiologic exam of the chest. Views: 1 view. COMPARISON: CR XR chest 1V portable [id number] 03/07/2022 7:38 AM FINDINGS: Tubes, catheters and devices: Interval placement of a right subclavian Port-A-Cath with the tip in the superior vena cava. Lungs: Linear atelectasis or scarring in right lower lobe. No focal consolidation. No pulmonary edema. Pleural spaces: No pleural effusion. No pneumothorax. Heart/Mediastinum: Stable mild enlargement of the cardiac silhouette. Mediastinal contours are unremarkable. Bones/joints: Unremarkable for age. XR/XR chest 1V portable [id number] IMPRESSION: 1. Interval placement of a right subclavian Port-A-Cath with the tip in the superior vena cava. 2. Linear atelectasis or scarring in right lower lobe. 3. Incidental/nonacute findings are listed in the report. The
[2022-03-19 19:26] LABS: Basophils % 0.1 %; Eosinophils # 0.2 10^3/uL (0.0-0.8); Eosinophils % 1.2 %; Hematocrit 24.2 % (42.0-52.0); Hemoglobin 7.7 g/dL (11.7-16.6); Lymphocytes # 1.5 10^3/uL (0.8-4.8); Lymphocytes % 8.8 %; Mean Corpuscular HGB Conc 31.8 g/dL (30.0-36.0); Mean Corpuscular Hemoglobin 28.2 pg (28.0-34.0); Mean Corpuscular Volume 88.6 fl (80-94); Mean Platelet Volume 9.1 fL (7.4-10.4); Monocytes # 0.6 10^3/uL (0.2-0.9); Monocytes % 3.4 %; Neutrophils # 14.67 10^3/uL (1.8-7.7); Neutrophils % 84.8 %; Nucleated Red Blood Cells % 0.2 %; Platelet Count 448 10^3/cmm (130-400); Red Blood Count 2.73 10^6/uL (4.1-5.3); Red Cell Distribution Width 14.3 % (12.1-15.1); White Blood Count 17.3 10^3/uL (4.0-10.0)
[2022-03-19] MEDS: sodium chloride 0.9% 1,000 ML 999 ML IV (19:32)
[2022-03-19 19:38] LABS: INR 1.69 (0.8-1.2)
[2022-03-19 19:39] LABS: Partial Thromboplastin Time 34.9 SECONDS (23.9-36.7)
[2022-03-19 19:45] LABS: Alanine Aminotransferase 23 U/L (0-41); Albumin Level 2.3 g/dL (3.5-5.2); Alkaline Phosphatase 95 U/L (40-130); Anion Gap 13.6 (5-19); Aspartate Amino Transferase 29 U/L (0-40); Blood Urea Nitrogen 42 mg/dL (8-23); Calcium 8.6 mg/dL (8.5-10.5); Carbon Dioxide 39 mmol/L (22-29); Chloride 87 mmol/L (98-107); Globulin 3.3 g/dL (1.3-4.6); Glucose 135 mg/dL (65-115); Osmolality Calculated 297 mOsm/kg (285-295); Sodium 137 mmol/L (136-145); Total Bilirubin 0.3 mg/dL (0.15-1.2); Total Protein 5.6 g/dL (6.6-8.7)
[2022-03-19] MEDS: pantoprazole 40 mg SDV 80 MG IVP (19:45)
[2022-03-19 19:57] LABS: Potassium 2.6 mmol/L (3.5-5.1)
[2022-03-19] MEDS: potassium chloride premix 100 ML 25 MEQ IV (20:15)
[2022-03-19] MEDS: magnesium sulfate premix 2 GM/50 ML PIGGYBACK IV (20:15)
[2022-03-19] MEDS: potassium chloride oral liq 20 mEq/15 mL UDC 40 MEQ PO (20:15)
--- NOTE | 2022-03-19 20:19 | CTR_ITS ---
PROCEDURE INFORMATION: Exam: CTA Abdomen and Pelvis With Contrast, GI Bleeding Exam date and time: 03/19/2022 9:01 PM Age: 66 years old Clinical indication: Other: Gi bleed; Difficulty breathing or dyspnea TECHNIQUE: Imaging protocol: Computed tomographic angiography of the abdomen and pelvis with contrast. 3D rendering (Not supervised by radiologist): MIP and/or 3D reconstructed images were created by the technologist. Radiation optimization: All CT scans at this facility use at least one of these dose optimization techniques: automated exposure control; mA and/or kV adjustment per patient size (includes targeted exams where dose is matched to clinical indication); or iterative reconstruction. Contrast material: OMNIPAQUE 350; Contrast volume: 95 ml; Contrast route: INTRAVENOUS (IV); COMPARISON: CT chest abd pel w con* 02/20/2022 12:45 PM RADIATION DOSE METRICS: Total DLP (mGy-cm): 616.07 FINDINGS: Lungs: Visualized lungs are clear. Few centrilobular emphysematous changes in the visualized lungs. Pleural space: No pleural effusion. No pleural effusion. Heart: Stable moderate enlargement of the visualized portions of the heart. Visualized portions of the heart are unremarkable. Aorta: Moderate calcified and noncalcified plaque. No occlusion, thrombosis, stenosis, extravasation, dissection, or aneurysm. Celiac trunk and mesenteric arteries: Incidental note of a separate origin of the left hepatic artery from the aorta. The left hepatic artery also gives branches to the lesser curvature of the stomach. Mild calcified plaque at the celiac, superior mesenteric, and inferior mesenteric arteries. No occlusion, thrombosis, stenosis, extravasation, dissection, or aneurysm. Renal arteries: Mild calcified plaque bilaterally. No occlusion, thrombosis, stenosis, extravasation, dissection, or aneurysm. Right iliac arteries: Moderate calcified and noncalcified plaque. Up to 50% stenosis in the right internal and external iliac arteries. No occlusion, thrombosis, extravasation, dissection, or aneurysm. Left iliac arteries: Moderate calcified and noncalcified plaque. Up to 50% stenoses in the left common iliac, internal iliac, and external iliac arteries. No occlusion, thrombosis, extravasation, dissection, or aneurysm. Liver: The liver is unremarkable. Multiple areas of fatty infiltration of the liver. Gallbladder and bile ducts: The gallbladder is unremarkable. No biliary ductal dilatation. Pancreas: The pancreas is unremarkable. No pancreatic ductal dilatation. Spleen: Multiple calcified granulomas in the spleen. Calcification with mild retraction along the lateral surface of the spleen, suggesting sequela of remote trauma. Adrenal glands: The right and left adrenal glands are unremarkable. Kidneys and ureters: The right and left kidneys are unremarkable. The right and left ureters are unremarkable. Stomach and bowel: No evidence for gastrointestinal bleed. Interval placement of a percutaneous gastrostomy tube. The buried bumper has eroded through the anterior gastric wall and abuts the posterior surface of the anterior abdominal wall. Free intraperitoneal air and inflammation around the bumper as well as an additional few foci of inflammation more laterally in the left upper quadrant adjacent to the left lobe of the liver (series 6, images 23-35 and series 4, images 45-70). No acute abnormality in the small bowel or colon. Appendix: The appendix is visualized and is unremarkable. No findings to suggest acute appendicitis. Intraperitoneal space: No ascites. No intra-abdominal abscess. See also under stomach and bowel . Lymph nodes: No lymphadenopathy. Urinary bladder: Mildly hyperdense focus in the right bladder base measuring 6.7 x 5.7 mm (series 4, image 185). This is better visualized compared with the prior imaging studies, possibly due to better bladder distention. It is uncertain whether this may represent a small bladder stone versus a bladder mass. Recommend clinical correlation and consider further evaluation with cystoscopy. Reproductive: Stable mild enlargement of the prostate gland. Bones/joints: There is a bone island in the left proximal femur. Degenerative changes in the spine, sacroiliac joints, and hips. Soft tissues: No acute abnormality in the extra-abdominal soft tissues. CT/CT angio abdomen pelvis [id number] IMPRESSION: 1. Interval placement of a percutaneous gastrostomy tube. The buried bumper has eroded through the anterior gastric wall and abuts the posterior surface of the anterior abdominal wall. Free intraperitoneal air and inflammation around the bumper as well as an additional few foci of inflammation more laterally in the left upper quadrant adjacent to the left lobe of the liver. 2. Mildly hyperdense focus in the right bladder base. This is better visualized compared with the prior imaging studies, possibly due to better bladder distention. It is uncertain whether this may represent a small bladder stone versus a bladder mass. Recommend clinical correlation and consider further evaluation with cystoscopy. 3. No evidence for gastrointestinal bleed. Nuclear medicine imaging with tagged red blood cell scan may be obtained for further evaluation if clinical concern for gastrointestinal bleed persists. 4. Multiple areas of fatty infiltration of the liver. 5. Atherosclerotic disease with multilevel stenoses in the pelvis. No occlusion, thrombosis, extravasation, dissection, or aneurysm. 6. Variant arterial anatomy as described in the report. 7. Incidental/nonacute findings are listed in the report. COMMENTS: THIS REPORT CONTAINS FINDINGS THAT MAY BE CRITICAL TO PATIENT CARE. The findings were verbally communicated via telephone conference with Dr. Giron at 9:53 PM CDT on 03/19/2022. The findings were acknowledged and understood.
[2022-03-19 20:28] LABS: Magnesium 1.8 mg/dL (1.7-2.3)
--- NOTE | 2022-03-19 21:48 | PM.HP ---
Providers/Chief Complaint Primary Care Provider: Katrina Gaytan MD Chief Complaint: PEG TUBE BLEED History of Present Illness Chacorta Siegel is a 66 year old male with a past medical history of noninsulin-dependent type diabetes mellitus, history of CAD status post stenting to LAD, history of atrial flutter on Eliquis, history of CVA no documentation of atrial fibrillation that I could find in the chart, history of recently diagnosed tonsillar cancer seen by oncology, radiation oncology, status post port placement, PEG tube placement, recent round of chemotherapy on Sunday, with PEG tube placement with concerns for leak, hypertension, sleep apnea who presents [facility] due to black tarry seepage around PEG tube, he tells me he is chronically constipated, no nausea, no vomiting, no hemoptysis, no fevers, chills, does report fatigue, malaise, weight loss, poor appetite. He denies any bloody or black stools. But does tell me that around the PEG tube site and the PEG tube he has noticed black tarry output, and also bloody output. He is on Eliquis 5 mg twice daily for history of atrial flutter, diagnosed in 2019. Also on aspirin 81 mg once daily. He also reports erythema, tenderness, around PEG tube site Review of Systems Const: Denies: fever(s) Card: Denies: chest pain Resp: Denies: dyspnea GI: Denies: abdominal pain Medications/Allergies Home Medications Medication Instructions Recorded Confirmed Last Taken Type albuterol sulfate 90 mcg/actuation 2 inh inhalation Q4H PRN shortness 11/30/21 03/17/22 03/06/22 Rx aerosol inhaler of breath or wheezing #18 grams apixaban 5 mg tablet (Eliquis) 5 mg PO BID 01/25/22 03/17/22 03/05/22 03:00 History cholecalciferol (vitamin D3) 50 2,000 unit PO QPM 01/25/22 03/17/22 03/06/22 History mcg (2,000 unit) tablet (Vitamin D3) cyanocobalamin (vitamin B-12) 1,000 mcg PO QAM 01/25/22 03/17/22 03/07/22 03:00 History 1,000 mcg tablet (Vitamin B-12) metformin 1,000 mg tablet 500 mg PO QAM 01/25/22 03/17/22 03/07/22 03:00 History mometasone-formoterol HFA 200 2 puff inhalation BID 01/25/22 03/17/22 02/20/22 History mcg-5 mcg/actuation aerosol inhaler polyethylene glycol 3350 17 gram 17 g PO DAILY PRN Constipation 01/25/22 03/17/22 Unknown History oral powder packet (Miralax) rosuvastatin 20 mg tablet (Crestor) 10 mg PO QAM 01/25/22 03/17/22 03/07/22 03:00 History tiotropium bromide 2.5 2 inh inhalation QAM 01/25/22 03/17/22 03/07/22 History mcg/actuation mist for inhalation (Spiriva Respimat) aspirin 81 mg tablet,delayed 81 mg PO DAILY #30 tabs 01/26/22 03/17/22 03/07/22 03:00 Rx release lidocaine HCl 2 % mucosal solution 5 ml mucous membrane Q6H PRN Pain 02/22/22 03/17/22 Unknown Rx (Lidocaine Viscous) #100 mL acetaminophen 500 mg tablet 1,000 mg PO BID 03/06/22 03/17/22 03/07/22 03:00 History oxycodone-acetaminophen 5 mg-325 1 - 2 tab PO .q4-6hr PRN pain 30 03/08/22 03/17/22 Unknown Rx mg tablet (Percocet) days #60 tabs lorazepam 0.5 mg tablet 0.5 mg PO TID PRN nausea and 03/13/22 03/17/22 Unknown Rx vomiting #30 tabs prochlorperazine maleate 10 mg 10 mg PO Q6H PRN nausea and 03/13/22 03/17/22 Unknown Rx tablet (Compazine) vomiting #30 tabs levofloxacin 500 mg tablet 500 mg PO DAILY #7 tabs 03/14/22 03/17/22 Unknown Rx Allergies Allergy/AdvReac Type Severity Reaction Status Date / Time No Known Allergies Allergy Verified 03/19/22 18:55 PFSH Acute PFSH: Medical History Acute exacerbation of chronic obstructive pulmonary disease COPD (chronic obstructive pulmonary disease) Coronary artery disease Diabetes mellitus Hyperlipidemia Hypertension GIDEON (obstructive sleep apnea) Squamous cell carcinoma of right tonsil Stroke Throat cancer Surgical History History of heart artery stent 1996 History of surgery on arm History of surgery on lower extremity Family History Mother Cancer lung Father Stroke Sister Cancer lung Other Bleeding disorder Clotting disorder Diabetes Hyperlipidemia Denies family history of CAD (coronary artery disease) Dementia Psychiatric illness Chronic kidney disease (CKD) Suicide Anesthesia complication Lung disease Hypertension Social History Smoking and tobacco status: current every day smoker cigarettes Packs smoked per day: 1.5 Alcohol intake: never Lives independently: Yes Household members: family Vitals/I&O/Wt Last Vital Signs Temp 97.6 F 03/19/22 19:25 Pulse 105 H 03/19/22 21:00 Resp 18 03/19/22 21:00 BP 99/60 03/19/22 21:00 Pulse Ox 97 03/19/22 21:00 O2 Del Method 03/19/22 21:00 Weight last 48 hrs Weight 71.214 kg Physical Exam Const: COMMON NORMALS: no acute distress and patient oriented x3 HENMT: COMMON NORMALS: normocephalic HEAD & SCALP: normocephalic Neck/C-Spine: COMMON NORMALS: no JVD Resp: COMMON NORMALS: normal respiratory effort, No retractions, No use of accessory muscles and clear to auscultation bilaterally AUSCULTATION: clear to auscultation bilaterally Cardio: COMMON NORMALS: no JVD, regular rate, regular rhythm, S1 normal heart sound present and S2 normal heart sound present RATE: regular rate RHYTHM: regular rhythm HEART SOUNDS: S1 normal heart sound present and S2 normal heart sound present GI: COMMON NORMALS: Normal to inspection, nondistended, normoactive bowel sounds present, Soft to palpation and no masses PALPATION: Yes Soft to palpation OTHER: On exam, PEG tube site, does have black tarry discharge around PEG tube site, with surrounding erythema, swelling, irregular borders, measuring 3 x 4 cm, round Extremity: COMMON NORMALS: capillary refill normal, no clubbing, cyanosis or edema, no calf tenderness and no pedal edema Neuro: COMMON NORMALS: patient oriented x3 Psych: COMMON NORMALS: mental status grossly normal Data : 03/19/22 19:17 03/19/22 19:17 Micro: Microbiology 03/19/22 19:18 Blood Culture - Preliminary Blood SPECIMEN COLLECTED 03/19/22 19:17 Blood Culture - Preliminary Blood SPECIMEN COLLECTED A&P Assessment and plan (1) Leaking PEG tube: (2) Acute blood loss as cause of postoperative anemia: (3) Hypokalemia: (4) Cellulitis: (5) COPD (chronic obstructive pulmonary disease): (6) Hypertension: (7) Throat cancer: (8) Diabetes mellitus: (9) Coronary artery disease: Plan Status post PEG tube placement, PEG tube CT scan shows 1. Interval placement of a percutaneous gastrostomy tube. The buried bumper has eroded through the anterior gastric wall and abuts the posterior surface of the anterior abdominal wall. Free intraperitoneal air and inflammation around the bumper as well as an additional few foci of inflammation more laterally in the left upper quadrant adjacent to the left lobe of the liver. 2. Mildly hyperdense focus in the right bladder base. This is better visualized compared with the prior imaging studies, possibly due to better bladder distention. It is uncertain whether this may represent a small bladder stone versus a bladder mass. Recommend clinical correlation and consider further evaluation with cystoscopy. 3. No evidence for gastrointestinal bleed. Nuclear medicine imaging with tagged red blood cell scan may be obtained for further evaluation if clinical concern for gastrointestinal bleed persists. 4. Multiple areas of fatty infiltration of the liver. 5. Atherosclerotic disease with multilevel stenoses in the pelvis. No occlusion, thrombosis, extravasation, dissection, or aneurysm. 6. Variant arterial anatomy as described in the report. 7. Incidental/nonacute findings are listed in the report. -Dr. Mead has been called by ER physician will come in and take a look at patient, and there are plans on repeating CAT scan Concerns for GI bleed -Is on Eliquis, aspirin -Hold Eliquis, hold aspirin -Serial hemoglobins, ferritin, iron, Hemoccult stool -Transfuse less than 7 -Protonix, Carafate Hypokalemia, has received replacement Type 2 diabetes mellitus, low-dose sliding scale PEG tube site, with surrounding erythema, tenderness -Concerning for cellulitis, continue vancomycin, cefepime, is on chemotherapy,, immunocompromise state Squamous cell carcinoma right tonsil -Status postchemotherapy SCDs for DVT prophylaxis, full code Attestations Medical Necessity Statement*: Patient requires hospital station in due to PEG tube findings, GI bleed, cellulitis, inpatient, greater than 2 midnights Coding Level of Care Code Acute Personal Injury Paralegal for Chg Fwd Exam Comprehensive Diagnoses Leaking PEG tube K94.23 Acute blood loss as cause of postoperative anemia D62 Hypokalemia E87.6 Cellulitis L03.90 COPD (chronic obstructive pulmonary disease) J44.9 Hypertension I10 Throat cancer C14.0 Diabetes mellitus E11.9 Coronary artery disease I25.10
[2022-03-19 22:12] LABS: C Reactive Protein 75.1 mg/L (0.0-4.9)
--- NOTE | 2022-03-19 22:41 | P.CONIM_ITS ---
Providers/Reason For Consult Consulting Physician/Specialty*: Vinicius Mead MD Reason for Consult*: G tube complications Requesting Physician: Attending Physician: Barrett Burks MD Primary Care Provider: Katrina Gaytan MD History of Present Illness History of Present Illness Mr.Kenneth Dick Siegel is a 66 year old male well known to me as he did undergo a peg tube placement 03/07/22 and he has been having some leaking arround it and appropriate and in-depth education was given to the patient and the family by my staff and myself for the coming week or so, but today he came to the ED as he started to have bleeding arround the tube,questinoable trauma applied to the PEG,patient and family not certain.A CT scan done and showed: 1. Interval placement of a percutaneous gastrostomy tube. The buried bumper has eroded through the anterior gastric wall and abuts the posterior surface of the anterior abdominal wall. Free intraperitoneal air and inflammation around the bumper as well as an additional few foci of inflammation more laterally in the left upper quadrant adjacent to the left lobe of the liver. 2. Mildly hyperdense focus in the right bladder base. This is better visualized compared with the prior imaging studies, possibly due to better bladder distention. It is uncertain whether this may represent a small bladder stone versus a bladder mass. Recommend clinical correlation and consider further evaluation with cystoscopy. 3. No evidence for gastrointestinal bleed. Nuclear medicine imaging with tagged red blood cell scan may be obtained for further evaluation if clinical concern for gastrointestinal bleed persists. 4. Multiple areas of fatty infiltration of the liver. 5. Atherosclerotic disease with multilevel stenoses in the pelvis. No occlusion, thrombosis, extravasation, dissection, or aneurysm. 6. Variant arterial anatomy as described in the report. General surgery was consulted for further evaluation Review of Systems General: Reports: 10 or more systems reviewed and unremarkable except in HPI and below Medications/Allergies Home Medications Medication Instructions Recorded Confirmed Last Taken Type albuterol sulfate 90 mcg/actuation 2 inh inhalation Q4H PRN shortness 11/30/21 03/17/22 03/06/22 Rx aerosol inhaler of breath or wheezing #18 grams apixaban 5 mg tablet (Eliquis) 5 mg PO BID 01/25/22 03/17/22 03/05/22 03:00 History cholecalciferol (vitamin D3) 50 2,000 unit PO QPM 01/25/22 03/17/22 03/06/22 History mcg (2,000 unit) tablet (Vitamin D3) cyanocobalamin (vitamin B-12) 1,000 mcg PO QAM 01/25/22 03/17/22 03/07/22 03:00 History 1,000 mcg tablet (Vitamin B-12) metformin 1,000 mg tablet 500 mg PO QAM 01/25/22 03/17/22 03/07/22 03:00 History mometasone-formoterol HFA 200 2 puff inhalation BID 01/25/22 03/17/22 02/20/22 History mcg-5 mcg/actuation aerosol inhaler polyethylene glycol 3350 17 gram 17 g PO DAILY PRN Constipation 01/25/22 03/17/22 Unknown History oral powder packet (Miralax) rosuvastatin 20 mg tablet (Crestor) 10 mg PO QAM 01/25/22 03/17/22 03/07/22 03:00 History tiotropium bromide 2.5 2 inh inhalation QAM 01/25/22 03/17/22 03/07/22 History mcg/actuation mist for inhalation (Spiriva Respimat) aspirin 81 mg tablet,delayed 81 mg PO DAILY #30 tabs 01/26/22 03/17/22 03/07/22 03:00 Rx release lidocaine HCl 2 % mucosal solution 5 ml mucous membrane Q6H PRN Pain 02/22/22 03/17/22 Unknown Rx (Lidocaine Viscous) #100 mL acetaminophen 500 mg tablet 1,000 mg PO BID 03/06/22 03/17/22 03/07/22 03:00 History oxycodone-acetaminophen 5 mg-325 1 - 2 tab PO .q4-6hr PRN pain 30 03/08/22 03/17/22 Unknown Rx mg tablet (Percocet) days #60 tabs lorazepam 0.5 mg tablet 0.5 mg PO TID PRN nausea and 03/13/22 03/17/22 Unknown Rx vomiting #30 tabs prochlorperazine maleate 10 mg 10 mg PO Q6H PRN nausea and 03/13/22 03/17/22 Unknown Rx tablet (Compazine) vomiting #30 tabs levofloxacin 500 mg tablet 500 mg PO DAILY #7 tabs 03/14/22 03/17/22 Unknown Rx Allergies Allergy/AdvReac Type Severity Reaction Status Date / Time No Known Allergies Allergy Verified 03/19/22 18:55 Current Medications Generic Name Dose Route Start Last Admin Trade Name Anali PRN Reason Stop Dose Admin Potassium Chloride 100 mls @ 25 mls/hr 03/19/22 19:59 03/19/22 20:15 K-Paul IV 03/19/22 23:58 25 mls/hr ONCE ONE Administration PFSH Acute PFSH: Medical History Acute exacerbation of chronic obstructive pulmonary disease COPD (chronic obstructive pulmonary disease) Coronary artery disease Diabetes mellitus Hyperlipidemia Hypertension GIDEON (obstructive sleep apnea) Squamous cell carcinoma of right tonsil Stroke Throat cancer Surgical History History of heart artery stent 1996 History of surgery on arm History of surgery on lower extremity Family History Mother Cancer lung Father Stroke Sister Cancer lung Other Bleeding disorder Clotting disorder Diabetes Hyperlipidemia Denies family history of CAD (coronary artery disease) Dementia Psychiatric illness Chronic kidney disease (CKD) Suicide Anesthesia complication Lung disease Hypertension Social History Smoking and tobacco status: current every day smoker cigarettes Packs smoked per day: 1.5 Alcohol intake: never Lives independently: Yes Household members: family Vitals/I&O/Wt Last Vital Signs Temp 98.1 F 03/19/22 22:23 Pulse 101 H 03/19/22 22:23 Resp 18 03/19/22 22:23 BP 103/60 03/19/22 22:23 Pulse Ox 97 03/19/22 22:23 O2 Del Method 03/19/22 21:00 Weight last 48 hrs Weight 157 lb Physical Exam Const: COMMON NORMALS: no acute distress and patient oriented x3 GENERAL APPEARANCE: cooperative ORIENTATION/CONSCIOUSNESS: Yes awake, Yes oriented to person, Yes oriented to place and Yes oriented to time HENMT: COMMON NORMALS: normocephalic HEAD & SCALP: normocephalic Eye: COMMON NORMALS: Equal, round and reactive pupils present and no scleral icterus PUPIL: Yes Equal, round and reactive pupils present Lymph: LYMPHATIC: no lymphadenopathy noted Chest: COMMONS NORMALS: normal inspection of the chest Resp: COMMON NORMALS: normal respiratory effort and clear to auscultation bilaterally AUSCULTATION: clear to auscultation bilaterally Cardio: COMMON NORMALS: S1 normal heart sound present and S2 normal heart sound present; negative for No murmurs present (Cardio) HEART SOUNDS: S1 normal heart sound present and S2 normal heart sound present GI: COMMON NORMALS: Soft to palpation; negative for No hepatosplenomegaly present INSPECTION: Yes normal to inspection PALPATION: Yes Soft to palpation, No Firmness to palpation present (GI), No Tenderness to palpation present (GI), No Guarding due to palpation present (GI), No Rigid due to palpation, No No hepatosplenomegaly present, Yes Splenomegaly present and Yes Other GI palpation findings present (PEG tube in p lace and no active bleeding) Neuro: COMMON NORMALS: patient oriented x3 SENSORIUM/ORIENTATION: Yes oriented to person, Yes oriented to place and Yes oriented to time Psych: COMMON NORMALS: mental status grossly normal Skin: COMMON NORMALS: no rashes or lesions noted GENERAL SKIN EXAM: no rashes or lesions noted Data : 03/20/22 04:38 03/20/22 04:38 Micro: Microbiology 03/19/22 19:18 Blood Culture - Preliminary Blood SPECIMEN COLLECTED 03/19/22 19:17 Blood Culture - Preliminary Blood SPECIMEN COLLECTED A&P Assessment and plan (1) PEG tube malfunction: I was abale to discuss the case with the [employer] service engineer Dr Reis and he is certain that the PEG tube is dislodged and leaving behind contained perforation,yet not in contunuity with general peritoneum. So basically it is a contained perforation. Patint does not have signs of peritonitis and I will plan to take him for surgery after resusscitation and correction of electrolytes/INR and hemoglobin levels and perform a diagnotic lapaproscopy possible open. Likely a partial gastrectomy and remove the current tube and intraoperative EGD Broad spetrum antibiotics. IVF resussciation. I Did discuss in length and in depth with the patient as well as his and his son that the rationale to take the tube out and perform a partial gastrectomy would be potentially the best approach, as placing another tube now it will be suboptimal due to the surrounding environment of inflammation associated with the partially dislodged tube. I did discuss the case with Dr. Justice over the phone as well and both of us agreed on the plan of care now once the patient heals from this process and he will to require a feeding tube down the road we can provide him with one. Plan of care; After thorough history and physical examination and reviewing the chart and images with my personal interpretation, plan to perform a laparoscopic partial gastrectomy possible open with intraoperative diagnostic esophagogastroduodenoscopy with possible biopsy. I discussed with the patient and his family in detail the risk,benefits,alternatives and indications.The risk of aspiration, bleeding, soft tissue injury, perforation of the stomach/esophagus and other potential concomitant complications were explained to the patient in details,also the potential need for Thoracic and or open abdominal surgery to repair any complications.The patient understood this well and did agree to proceed. Rationale was carefully and clearly discussed with the patient.Appropriate informed consent have been reviewed and signed All questions have been answered and all concerns have been addressed to p cortney's satisfaction. discussed with the patient and family,agreed to proceed accordingly Consult Attestations Time Spent in Patient Care: 16 - 35 minutes Coding Level of Care Code Acute Bowling Ball Marker for Chg Fwd Exam Comprehensive Diagnoses PEG tube malfunction K94.23
[2022-03-19 22:52] LABS: Hematocrit 22.8 % (42.0-52.0)
--- NOTE | 2022-03-19 22:55 | PC.PHAR ---
Pharmacokinetic dosing service Date: 03/19/22 Time: 2254 Objective: Patient: Chacorta Siegel Floor: 258[address]1 Age: 66 yo Serum creatinine: 1.0 mg/dL Height: 65.0 Inches Weight (kg): 71.214 Diagnosis: Relevant medical/social history: Cultures and sensitivities: Other labs: Assessment: IBW (kg): 61.50 Dosing wt(kg): 71.214 Estimated Creatinine clearance (ml/min): 64.1 CRCL method: Cockcroft and Gault using ibw(default). Drug selected: Vancomycin Loading dose (mg): 0 Vd (liters): 64.1 (factor used: 0.9 L/kg) Larry (hr-1): 0.058 Half life (hrs): 11.95 Recommended dose: 1000 mg Interval: 12 hrs Infusion time (hrs): 1 Predicted peak (mcg/mL): 30.2 Predicted trough (mcg/mL): 15.96 Total body weight is being used for vancomycin dosing. Renal function is stable [ ] /unstable [ ] Recommendations: Give Vancomycin 1000 mg q 12 hrs with an expected Cpeak of 30.2 mcg/ml and an expected Ctrough of 15.96 mcg/ml Renal dosing of other antibiotics (review renal dosing of other medications and list guidelines here): Thank you for the consult, will continue to follow. Signature: Camila Barboza [facility]
[2022-03-19] MEDS: morphine 4 mg/mL SDV 1 mL 2 MG IVP (23:59)
[2022-03-20] VITALS (30 sets, daily range): BP systolic 104–160; BP diastolic 55–86; PULSE 78–100; RESP 15–24; TEMP 36.2–36.9; O2SAT 90–100
[2022-03-20] MEDS: sodium chlor 0.9% + KCl 40 mEq 40 MEQ/1,000 ML BAG 125 MEQ IV ×3 (00:01→17:04)
[2022-03-20 00:22] LABS: Ferritin 359 ng/mL (30-400); Iron 44 ug/dL (59-158); Percent Saturation 23.5 % (20-50); Total Iron Binding Capacity 187 mcg/dl; Unsaturated Iron Binding 143 ug/dL (112-347)
[2022-03-20] MEDS: piperacillin-tazobactam 3.375 GM in sodium chloride 0.9% (plus) 50 ML IV ×3 (01:17→17:04)
--- NOTE | 2022-03-20 03:34 | PC.NURSE ---
Discussed order to receive 1 unit PRBC and 1 unit FFP with patient. Patient declines stating he wanted to discuss with his oncologist prior to receiving any blood products. Update Dr. Burks, no further orders at this time. Will continue to monitor patient.
[2022-03-20 05:12] LABS: Basophils % 0.1 %; Eosinophils # 0.2 10^3/uL (0.0-0.8); Eosinophils % 1.9 %; Lymphocytes # 1.2 10^3/uL (0.8-4.8); Lymphocytes % 10.9 %; Mean Corpuscular Hemoglobin 27.8 pg (28.0-34.0); Mean Corpuscular Volume 92.8 fl (80-94); Mean Platelet Volume 9.3 fL (7.4-10.4); Monocytes # 0.4 10^3/uL (0.2-0.9); Monocytes % 3.4 %; Neutrophils # 9.25 10^3/uL (1.8-7.7); Neutrophils % 81.7 %; Nucleated Red Blood Cells % 0.3 %; Platelet Count 368 10^3/cmm (130-400); Red Blood Count 2.23 10^6/uL (4.1-5.3); Red Cell Distribution Width 14.6 % (12.1-15.1); White Blood Count 11.3 10^3/uL (4.0-10.0)
[2022-03-20 05:25] LABS: Anion Gap 10.4 (5-19); Blood Urea Nitrogen 30 mg/dL (8-23); Carbon Dioxide 33 mmol/L (22-29); Chloride 101 mmol/L (98-107); Creatinine Clr Calc Pharmacy 108.5495; Glomerular Filtration Rate 113.2 mL/min (90-130); Glucose 97 mg/dL (65-115); Magnesium 2.4 mg/dL (1.7-2.3); Osmolality Calculated 298 mOsm/kg (285-295); Potassium 3.4 mmol/L (3.5-5.1); Sodium 141 mmol/L (136-145)
[2022-03-20 05:34] LABS: Hematocrit 20.7 % (42.0-52.0); Hemoglobin 6.2 g/dL (11.7-16.6)
--- NOTE | 2022-03-20 06:35 | PC.NURSE ---
Discussed with patient importance of transfusion of FFP and PRBC as H&H continues to drop to critical value. Spoke with Dr Burks regarding the lab values as well. After educating patient about the importance of the transfusion, and patient in agreeance to transfusion.
[2022-03-20 06:49] LABS: Glucose Point of Care 113 mg/dL (70-110)
[2022-03-20] MEDS: sodium chloride 0.9% (100 ml) 100 ML ×2 (08:26→08:27)
[2022-03-20] MEDS: pantoprazole 40 mg SDV IVP ×2 (09:45→18:00)
--- NOTE | 2022-03-20 10:20 | PM.PN ---
Subjective Subjective: This morning. Patient will be going for surgery secondary to dislodged PEG tube and perforation. Procedure will be today around 10:30 AM. Vitals/I&O/Wt Last Vital Signs Temp 97.2 F L 03/20/22 10:10 Pulse 98 03/20/22 10:10 Resp 16 03/20/22 10:10 BP 124/72 03/20/22 10:10 Pulse Ox 91 03/20/22 10:10 O2 Del Method 03/20/22 10:10 03/19/22 03/20/22 03/20/22 22:59 06:59 14:59 Intake Total 50 / 50 1400 / 1450 1488.000 / 1488.000 Balance 50 / 50 1400 / 1450 1488.000 / 1488.000 Weight last 48 hrs Weight 116.165 kg Weight 71.214 kg Physical Exam Narrative: General: Alert oriented x3, patient seen sitting up in bed appearing comfortable at this time with family at bedside. HEENT: Normocephalic, atraumatic, EOMI, breathing normally. Cardio: Regular rate rhythm, normal S1-S2, Respiratory: Good bilateral air entry, no wheezes no rhonchi appreciated GI: Abdomen soft, nontender, nondistended, bowel sounds +, PEG tube in place Extremities: NO LE EDEMA Data : 03/20/22 04:38 03/20/22 04:38 Micro: Microbiology 03/19/22 19:18 Blood Culture - Preliminary Blood SPECIMEN COLLECTED 03/19/22 19:17 Blood Culture - Preliminary Blood SPECIMEN COLLECTED A&P Assessment and plan (1) Leaking PEG tube: (2) Acute blood loss as cause of postoperative anemia: (3) Hypokalemia: (4) Cellulitis: (5) COPD (chronic obstructive pulmonary disease): (6) Hypertension: (7) Throat cancer: (8) Diabetes mellitus: (9) Coronary artery disease: Plan #Perforation secondary to PEG tube dislodgment #Initially PEG tube placed secondary to squamous cell carcinoma right tonsil #Anemia, postoperative? #Diabetes mellitus #Hypertension #CAD #COPD #Immunocompromise status #Squamous cell cancer right tonsil status postchemotherapy -Continue to hold Eliquis and aspirin ? Continue to monitor H&H ? Check ferritin, iron panel, FOBT ? Transfuse less than 7 ? Continue Protonix twice daily, Carafate ? Continue to replete electrolytes ? Order sliding scale ? Concern for cellulitis around PEG tube site. Continue vancomycin, cefepime. -Metformin on hold. ? Rosuvastatin continued ? Further management to be decided after surgery. SCDs for DVT prophylaxis, full code Attestations Medical Necessity Statement*: Patient going for surgical repair of PEG tube site today. Coding Level of Care Code Acute Racecourse Barrier Attendant for Chg Fwd Diagnoses Leaking PEG tube K94.23 Acute blood loss as cause of postoperative anemia D62 Hypokalemia E87.6 Cellulitis L03.90 COPD (chronic obstructive pulmonary disease) J44.9 Hypertension I10 Throat cancer C14.0 Diabetes mellitus E11.9 Coronary artery disease I25.10
--- NOTE | 2022-03-20 10:24 | PC.PHAR ---
pts verified pts medications
[2022-03-20] MEDS: sodium chloride 0.9% 1,000 ML 30 ML IV (11:15)
--- NOTE | 2022-03-20 11:30 | PC.CHAP ---
Pastoral Care Encounter/Spiritual Assessment Type of Contact [] Declined application support intern visit [] Patient/Family/Request visit [] Outpatient visit [] Follow-up visit [] Physician referral [] Code/Alert [x Routine visit [] Staff referral [] Actively dying [] Patient sleeping [] Family support [] [] Out of room [] Palliative care [] [] Receiving care in room [] Pre-surgical visit [] Trauma [] Long length of stay [] ICU visit [] Other: Relational/Emotional Strength [x] Patient feels connected with others/family/visitors/staff [] Distress [] Loneliness/isolation [] Abandonment Spirituality of Patient [x]x Person of Sonya [] Attends Methodist of their Sonya [x] Believes in Prayer [] Reads Bible or Buddhism materials [] There are Spiritual issues to be addressed Band Edger Interventions [x] Prayer [x] Active listening [] Non-anxious presence [] Spiritual/emotional support [] Crisis/trauma care [] Spiritual counseling [] Bereavement support [] Provided bereavement packet [] Provided Bible/devotional materials [] Provided toy/stuffed animal, coloring book to patient or family member [] Provided Communion [] Anointing/Archbald [] Salvation [x] Completed spiritual assessment [] Other: Impact on Illness or Injury [] Angry [] Fearful [] Anxious [] Often cries [] Exhaustion [] Unable to work [] Unable to attend anabaptism [] Unable to walk/stand [] Unable to read [] Unable to drive [] Unable to eat/drink [] Unable to sleep [] Unable to be with family [] Patient intubated [] Other: Summary Time spent with patient 15 min x
--- NOTE | 2022-03-20 12:56 | ANES.PREANE2 ---
Pre-Anesthetic Assessment Height/Weight: Height 1.65 m Weight 116.165 kg Temp Pulse Resp BP Pulse Ox O2 Del Method 97.3 F L 96 16 127/80 90 03/20/22 10:30 03/20/22 10:30 03/20/22 10:30 03/20/22 10:30 03/20/22 10:30 03/20/22 10:10 Preop Diagnosis: Tonsillar cancer Operation Date: 03/20/22 10:30 Proposed Procedures p laparoscopic partial gastrectomy(Not Applicable) - Vinicius Mead MD Familial anesthetic complications: none Was Beta Hui taken within 24 hours: N/A Was Clonidine taken within 24 hours: N/A Last intake: Intake Last Liquid Date 03/19/22 Last Liquid Time 18:30 Last Solid Date 03/19/22 Last Solid Time 09:00 Social Tobacco and No alcohol Exam alert, oriented x 3 and regular rate & rhythm rhonchi Airway Submandibular: within normal limits Cervical ROM: within normal limits Mallampati: Class III Dentition: false Comments: Comments: h/o laryngeal/tonsillar CA, no strider Pulmonary Chronic Obstructive Pulmonary Disease and Sleep Apnea CV/HEM Anemia (severe), Arrythmia, Coronary Artery Disease and Hypertension Metabolic Diabetes Mellitus, Hyperlipidemia and Morbid Obesity Anesthetic Plan ASA status: 3 Anesthesia: General Medications/Allergies Home Medications Medication Instructions Recorded Confirmed Last Taken Type albuterol sulfate 90 mcg/actuation 2 inh inhalation Q4H PRN shortness 11/30/21 03/20/22 03/06/22 Rx aerosol inhaler of breath or wheezing #18 grams apixaban 5 mg tablet (Eliquis) 5 mg PO BID 01/25/22 03/20/22 03/05/22 03:00 History cyanocobalamin (vitamin B-12) 1,000 mcg PO QAM 01/25/22 03/20/22 03/07/22 03:00 History 1,000 mcg tablet (Vitamin B-12) metformin 1,000 mg tablet 500 mg PO QAM 01/25/22 03/20/22 03/07/22 03:00 History mometasone-formoterol HFA 200 2 puff inhalation BID 01/25/22 03/20/22 02/20/22 History mcg-5 mcg/actuation aerosol inhaler polyethylene glycol 3350 17 gram 17 g PO DAILY PRN Constipation 01/25/22 03/20/22 Unknown History oral powder packet (Miralax) rosuvastatin 20 mg tablet (Crestor) 10 mg PO QAM 01/25/22 03/20/22 03/07/22 03:00 History tiotropium bromide 2.5 2 inh inhalation QAM 01/25/22 03/20/22 03/07/22 History mcg/actuation mist for inhalation (Spiriva Respimat) lidocaine HCl 2 % mucosal solution 5 ml mucous membrane Q6H PRN Pain 02/22/22 03/20/22 Unknown Rx (Lidocaine Viscous) #100 mL acetaminophen 500 mg tablet 1,000 mg PO BID 03/06/22 03/20/22 03/07/22 03:00 History oxycodone-acetaminophen 5 mg-325 1 - 2 tab PO .q4-6hr PRN pain 30 03/08/22 03/20/22 Unknown Rx mg tablet (Percocet) days #60 tabs lorazepam 0.5 mg tablet 0.5 mg PO TID PRN nausea and 03/13/22 03/20/22 Unknown Rx vomiting #30 tabs prochlorperazine maleate 10 mg 10 mg PO Q6H PRN nausea and 03/13/22 03/20/22 Unknown Rx tablet (Compazine) vomiting #30 tabs levofloxacin 500 mg tablet 500 mg PO DAILY #7 tabs 03/14/22 03/20/22 Unknown Rx albuterol sulfate 2.5 mg inhalation Q6H PRN 03/20/22 03/20/22 Unknown History Shortness Of Breath aspirin 81 mg tablet,delayed 81 mg PO QAM 03/20/22 03/20/22 Unknown History release cholecalciferol (vitamin D3) 25 25 mcg PO QPM 03/20/22 03/20/22 Unknown History mcg (1,000 unit) tablet (Vitamin D3) cyclobenzaprine 10 mg tablet 10 mg PO TID PRN Muscle Spasm 03/20/22 03/20/22 Unknown History Allergies Allergy/AdvReac Type Severity Reaction Status Date / Time No Known Allergies Allergy Verified 03/20/22 10:23 Current Medications Generic Name Dose Route Start Last Admin Trade Name Freq PRN Reason Stop Dose Admin Aspirin 81 mg 03/20/22 09:00 03/20/22 09:45 Aspirin 81 Mg Ec Tablet PO Not Given DAILY SAMMY Atorvastatin Calcium 80 mg 03/20/22 06:00 03/20/22 05:31 Atorvastatin 40 Mg Tablet PO Not Given QAM SAMMY Cyanocobalamin 1,000 mcg 03/20/22 06:00 03/20/22 05:31 Cyanocobalamin 1,000 Mcg Tablet PO Not Given QAM SAMMY Vancomycin HCl 1,000 mg/ 250 mls @ 250 mls/hr 03/19/22 23:00 03/20/22 01:00 Sodium Chloride IV Infused Q12H SAMMY Infusion Piperacillin Sod/Tazobactam 50 mls @ 12.5 mls/hr 03/20/22 00:00 03/20/22 10:10 Sod 3.375 gm/ Sodium Chloride IV Infused Q8H SAMMY Infusion Protocol Potassium Chloride/Sodium Chloride 40 meq in 1,000 mls @ 125 mls/hr 03/19/22 23:30 03/20/22 08:26 Sodium Chlor 0.9% + Kcl 40 Meq IV 125 mls/hr .Q8H SAMMY Administration Sodium Chloride 1,000 mls @ 30 mls/hr 03/20/22 11:15 03/20/22 11:15 Sodium Chloride 0.9% IV 03/21/22 11:14 30 mls/hr .Q24H SAMMY Administration Insulin Human Lispro 0 unit 03/20/22 08:00 03/20/22 07:39 Insulin Lispro 100 Unit/1 Ml SUBCUT Not Given TIDWM SAMMY Protocol Morphine Sulfate 2 mg 03/19/22 23:41 03/19/22 23:59 Morphine 4 Mg/Ml Sdv 1 Ml IVP 2 mg Q2H PRN Administration SEVERE PAIN Pantoprazole Sodium 40 mg 03/20/22 07:00 03/20/22 09:45 Pantoprazole 40 Mg Sdv IVP 40 mg Q12H SAMMY Administration Sucralfate 1 gm 03/19/22 22:33 03/19/22 23:43 Sucralfate 1 Gm/10 Ml Oral Liq Udc PO Not Given Q12H SAMMY PFSH Anesthesia Medical History Acute exacerbation of chronic obstructive pulmonary disease COPD (chronic obstructive pulmonary disease) Coronary artery disease Diabetes mellitus Hyperlipidemia Hypertension GIDEON (obstructive sleep apnea) Squamous cell carcinoma of right tonsil Stroke Throat cancer Surgical History History of heart artery stent 1996 History of surgery on arm History of surgery on lower extremity Family History Mother Cancer lung Father Stroke Sister Cancer lung Other Bleeding disorder Clotting disorder Diabetes Hyperlipidemia Denies family history of CAD (coronary artery disease) Dementia Psychiatric illness Chronic kidney disease (CKD) Suicide Anesthesia complication Lung disease Hypertension Social History Smoking and tobacco status: current every day smoker cigarettes Packs smoked per day: 1.5 Alcohol intake: never Lives independently: Yes Household members: family Data Anesthesia : 03/20/22 04:38 03/20/22 04:38 Short CBC 03/19/22 03/19/22 03/20/22 Range/Units 19:17 22:34 04:38 WBC 17.3 H 11.3 H (4.0-10.0) 10^3/uL Hgb 7.7 L 7.0 L 6.2 L* (11.7-16.6) g/dL Hct 24.2 L 22.8 L 20.7 L* (42.0-52.0) % MCV 88.6 92.8 (80-94) fl Plt Count 448 H 368 (130-400) 10^3/cmm Neut % (Auto) 84.8 81.7 % Neut # (Auto) 14.67 H 9.25 H (1.8-7.7) 10^3/uL BMP 03/19/22 03/20/22 19:17 04:38 Sodium 137 141 Potassium 2.6 L* 3.4 L Chloride 87 L 101 Carbon Dioxide 39 H 33 H BUN 42 H 30 H Creatinine 1.0 0.7 Glucose 135 H 97 Calcium 8.6 8.0 L Liver Function 03/19/22 Range/Units 19:17 Total Bilirubin 0.3 (0.15-1.2) mg/dL AST 29 (0-40) U/L ALT 23 (0-41) U/L Alkaline Phosphatase 95 (40-130) U/L Albumin 2.3 L (3.5-5.2) g/dL Blood Bank 03/19/22 19:17 Blood Type B Positive Rho(D) Type Positive Antibody Screen Negative Coags 03/19/22 03/19/22 19:17 19:17 PT 20.20 H INR 1.69 H APTT 34.9 C-Reactive Protein 75.1 H Microbiology 03/19/22 19:18 Blood Culture - Preliminary Blood SPECIMEN COLLECTED 03/19/22 19:17 Blood Culture - Preliminary Blood SPECIMEN COLLECTED Cardiac Studies: Echocardiogram 01/25/22
--- NOTE | 2022-03-20 13:09 | PC.SLP ---
Patient was taken to surgery prior to my arrival to assess. Patient will be assessed on 03/21 if he is able to to fully participate in the evaluation.
--- NOTE | 2022-03-20 14:15 | PM.OP ---
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 will smart, Chi and carry) Estimated blood loss (mL): 50 IV fluids (mL): 1,000 IV fluids: 250 mL 25 percent albumin and blood transfusion 350 ml Urine output (mL): 250 Procedure: Patient was identified in the holding area,preoperative IV fluid hydration, patient was then taken to the operating room where the patient was placed in supine position, intubated by anesthesia prophylactic antibiotics were given per protocol, Time-out was done verifying the patient's name/date of /planned procedure and destination after the procedure, all were in agreement.SCDs confirmed to be functioning, and beta nai protocol was confirmed. A Denise catheter was inserted by the circulating nurse revealing clear urine. A foot board was applied to secure the patient while the patient is placed in reversed Trendelenburg, all pressure points were padded, and the patient was appropriately secured to the table, anesthesia was asked to rotate the table back and forth to verify that the patient is appropriately secured, and that was the case. The abdomen was prepped and draped under the usual sterile technique. A transverse incision was made with a 15 blade scalpel approximately 20 cm below the xiphoid process and 3 cm left of the midline. A 5 mm optical trocar port was placed under direct vision into the peritoneal cavity without initial evidence of injury to peritoneal structures upon entry. The peritoneal cavity was insufflated with carbon dioxide gas up to 15 mmHg pressure. A 30? angle laparoscopy was placed through the port into the peritoneal cavity there was no significant blood, fluid, or evidence of intra-abdominal injury under direct visualization, trocars were then used; a 12 mm trocar port was placed in the right epigastric region and a 5 mm trocar port was placed in the mid epigastric region more caudad than and medial to the previous port. A 5 mm trocar port was placed in the left lateral flank and additional 5 mm trocar was inserted at the right lower quadrant. There after the index 5 mm trocar was switched to a 12 mm trocar under direct visualization after extending the skin incision. I lifted the omentum up to make sure there were no injuries and there were superficial mesenteric tears at the index trocar insertion, the underlying transverse colon and small bowel viscera were normal otherwise. I managed to put couple of 2-0 silk sutures under direct visual visualization to approximate the mesentery without compromising the blood supply of the bowel. Patient was then placed in the reversed Trendelenburg. Following this, the greater curvature of the stomach was freed from the omentum using the LigaSure device, omentum sealing the PEG tube onto the contained perforated stomach were taken down. This dissection was carried from approximately 4 cm-6 cm proximal to the pylorus and extending slightly proximally. There was intense adhesions and inflammation surrounding the gastrotomy site that was all freed bluntly and by LigaSure dissection.During this process the posterior aspect of the stomach was mobilized from the underlying peritoneum and the posterior aspect of the stomach was well exposed. With the greater curvature of the stomach exposed from within 4-6 cm of the pylorus and extending proximal which also included the posterior stomach. Using the [place] Laparoscopic HECTOR linear cutting stapler with [place] Endopath enforcement, a series of олег were used to transect the stomach in a vertical fashion. This was carried all the way to about 2 inches proximal to the perforated distal stomach. [place] 60 mm Green loads were used for the distal third of the stomach and Gold loads were used for the more proximal part of the stomach with reinforcement and then blue load as a final stapler without reinforcement material. There was no encroachment onto the lumen of the stomach. The staple line along the remaining stomach was tested for leaks and bleeding under direct vision.standard diagnostic EGD via the mouth by my me after I scrubbed out, insufflation was achieved using CO2 gas and the staple line submerged under saline, meanwhile a clamp was applied distally onto the end of the stomach to allow insufflation test for leak. There was no evidence of leak .There was adequate hemostasis along the staple line.EGD was taken out at this point after deflation of the stomach. I scrubbed the back in. The transected partial stomach,was removed from the peritoneum through the first 12 mm trocar site using Endo Catch bag, and was sent for permanent pathology. Prior to closure of the fascia. A final look laparoscopy identified no injuries or bleeding. And sutures marked approximately. At that point the PEG tube was removed and the site was cleaned and irrigated and I elected to apply a [id number] PDS suture to approximate the edges. Followed by packing of the wound. An interrupted #1 PDS suture on a granny needle suture passer was used to close the right epigastric and the other 12 mm trocar left of the midline fascial defects under direct visualization. The other trocars were removed under direct vision and no evidence of bleeding was identified. I elected to place pieces of Surgicel towards the distal part of the stomach and onto the repaired mesenteric tears that were approximated by 2-0 silk sutures to secure final hemostasis. The pneumoperitoneum was decompressed. All skin incisions were irrigated with saline, then closed with олег, followed by application of sterile dressings. The patient was extubated and taken to the recovery room with normal vital signs. The site of the PEG tube removal was irrigated and packed with half-inch Nu Gauze. Denise catheter was maintained All counts of instruments, sponges and needles were completed at the end of the procedure I was present for the whole entire procedure
[2022-03-20 15:54] LABS: Hematocrit 31.6 % (42.0-52.0); Hemoglobin 9.9 g/dL (11.7-16.6)
--- NOTE | 2022-03-20 15:55 | ANE.PACU2 ---
Inpatient post-anesthesia follow up: Airway intact: Yes Vital signs: Temperature 97.1 F Pulse Rate 85 Respiratory Rate 18 Blood Pressure 129/72 Pulse Oximetry 93 Oxygen Delivery Me thod Room Air Oxygen Flow Rate 6 Fraction of Inspir ed Oxygen Hydration adequate: Yes Nausea and vomiting: No Pain level: 3 Mental status: Baseline
[2022-03-20 16:59] LABS: Glucose Point of Care 128 mg/dL (70-110)
[2022-03-20] MEDS: oxyCODONE-APAP 5-325 mg Tablet 1 TAB PO (17:03)
[2022-03-20] MEDS: vancomycin 1,000 MG in sodium chloride 0.9% 250 ML 250 MG IV ×2 (17:04)
[2022-03-20 21:11] LABS: Glucose Point of Care 96 mg/dL (70-110)
[2022-03-20] MEDS: sucralfate 1 gm/10 mL Oral Liq UDC PO (21:49)
[2022-03-21] VITALS (9 sets, daily range): BP systolic 136–164; BP diastolic 74–94; PULSE 88–100; RESP 15–19; TEMP 36.6–36.9; O2SAT 93–95
[2022-03-21] MEDS: piperacillin-tazobactam 3.375 GM in sodium chloride 0.9% (plus) 50 ML IV ×3 (00:05→20:53)
[2022-03-21] MEDS: oxyCODONE-APAP 5-325 mg Tablet 1 TAB PO ×3 (00:16→15:55)
[2022-03-21] MEDS: sodium chlor 0.9% + KCl 40 mEq 40 MEQ/1,000 ML BAG 125 MEQ IV ×3 (01:16→19:19)
[2022-03-21 02:39] LABS: Basophils % 0.2 %; Eosinophils % 0.2 %; Hematocrit 29.6 % (42.0-52.0); Lymphocytes # 0.7 10^3/uL (0.8-4.8); Lymphocytes % 5.3 %; Mean Corpuscular HGB Conc 30.4 g/dL (30.0-36.0); Mean Corpuscular Hemoglobin 29.3 pg (28.0-34.0); Mean Corpuscular Volume 96.4 fl (80-94); Mean Platelet Volume 9.6 fL (7.4-10.4); Monocytes # 0.4 10^3/uL (0.2-0.9); Neutrophils % 89.2 %; Nucleated Red Blood Cells % 0.2 %; Platelet Count 302 10^3/cmm (130-400); Red Blood Count 3.07 10^6/uL (4.1-5.3); Red Cell Distribution Width 14.3 % (12.1-15.1); White Blood Count 13.2 10^3/uL (4.0-10.0)
[2022-03-21] MEDS: vancomycin 1,000 MG in sodium chloride 0.9% 250 ML 250 MG IV ×2 (04:59→17:31)
[2022-03-21 05:42] LABS: Blood Urea Nitrogen 12 mg/dL (8-23); Calcium 8.4 mg/dL (8.5-10.5); Carbon Dioxide 19 mmol/L (22-29); Chloride 106 mmol/L (98-107); Glomerular Filtration Rate 135.2 mL/min (90-130); Glucose 87 mg/dL (65-115); Osmolality Calculated 287 mOsm/kg (285-295); Sodium 139 mmol/L (136-145)
[2022-03-21 05:47] LABS: Anion Gap 18.9 (5-19); Creatinine Clr Calc Pharmacy 108.5495; Potassium 4.9 mmol/L (3.5-5.1)
--- NOTE | 2022-03-21 06:53 | P.PN_ITS ---
Subjective Subjective: Overall patient feels better No acute events overnight Medications: Reviewed: Yes Vitals/I&O/Wt Last Vital Signs Temp 97.8 F 03/21/22 04:00 Pulse 88 03/21/22 04:00 Resp 16 03/21/22 04:58 BP 164/75 03/21/22 04:00 Pulse Ox 94 03/21/22 04:00 O2 Del Method 03/21/22 04:00 O2 Flow Rate 6 03/20/22 14:30 03/20/22 03/20/22 03/21/22 14:59 22:59 06:59 Intake Total 2238.000 / 2238.000 2360 / 4598.000 1300 / 5898.000 Output Total 550 / 550 1450 / 2000 Balance 1688.000 / 0472.481 8705 / 4048.000 -150 / 3898.000 Weight last 48 hrs Weight 256 lb 1.6 oz Weight 157 lb Physical Exam Narrative: Patient is conscious alert oriented X3 No apparent distress BMI 43 Head and neck examination PERRLA Abdomen nontender except mildly at the incision sites. Dressing in place nondistended soft no organomegaly guarding or rigidity/no signs of peritonitis Urinary Catheter Management: Denise: Cath Placed During This Visit: yes Reason for Continuing Indwelling Catheter: Perioperative Use in Selected Surgeries Urinary Catheter Date of Insertion: 03/20/22 Urinary Catheter Time of Insertion: 12:30 Data : 03/22/22 01:43 03/22/22 01:43 Micro: Microbiology 03/19/22 19:18 Blood Culture - Preliminary Blood NEGATIVE TO DATE 03/19/22 19:17 Blood Culture - Preliminary Blood NEGATIVE TO DATE 03/20/22 01:20 MRSA Culture - Final Nose A&P Assessment and plan (1) PEG tube malfunction: Assessment 66 years old gentleman status post laparoscopic partial gastrectomy and removal of PEG tube 03/20/2022 Plan DC Denise catheter patient has been having adequate urine output Dressing change as ordered in the form of daily packing of the wound with half- inch Nu Gauze wet-to-dry and application of zinc oxide cream 2-3 times a day on the excoriated skin area or as needed Encourage ambulation with assistance Incentive spirometer every hour Before we start feeding the patient on clear liquid diet we will obtain an upper GI study once this is done we will start feeding the patient slowly and focus on protein shakes. Patient and family education and set expectations Assurance and education All questions have been answered and all concerns have been addressed to patient's satisfaction. Attestations Medical Necessity Statement*: Patient requiring inpatient hospitalization for perioperative care Time Spent in Patient Care: 16 - 35 minutes Coding Level of Care Code Acute Gravity Prospecting Supervisor for Chg Fwd Diagnoses PEG tube malfunction K94.23
[2022-03-21 06:54] LABS: Glucose Point of Care 93 mg/dL (70-110)
--- NOTE | 2022-03-21 08:00 | FL_ITS ---
WS: [id number] Exam: [place] upper GI gastrografin [id number] Date/Time of Exam: 03/21/2022 9:07 AM Reason For Exam: Status post partial gastrectomy after dislodgment of PEG tub Swallowing function at the level of the oropharynx was normal. The esophagus is smooth in contour wit h normal motility. The stomach is freely distensible. Prominent gastric mucosa suggesting mild gastri tis. No gastric mass or ulceration. The duodenal bulb is smooth in contour without ulcer. The duodena l C-loop is not widened or displaced. Free spillage of contrast into the proximal small bowel. FL/FL upper GI gastrografin [id number] IMPRESSION: 1. Patent esophagus. 2. Prominent gastric mucosa suggesting mild gastritis. No gastric mass or ulcer ation. No duodenal ulcer. Barium spills freely into the proximal jejunum.
[2022-03-21] MEDS: diatrizoate meglumine 120 mL Sol PO (09:51)
[2022-03-21] MEDS: atorvastatin 40 mg Tablet 80 MG PO (11:11)
[2022-03-21] MEDS: sucralfate 1 gm/10 mL Oral Liq UDC PO ×2 (11:11→20:53)
[2022-03-21] MEDS: cyanocobalamin 1,000 mcg Tablet 1000 MCG PO (11:12)
[2022-03-21 12:07] LABS: Glucose Point of Care 116 mg/dL (70-110)
[2022-03-21] MEDS: pantoprazole 40 mg SDV IVP ×2 (12:13→20:53)
--- NOTE | 2022-03-21 12:57 | PM.PN ---
Subjective Subjective: seen this am after upper gi series study. pt had swallow study and drinking sprite when seen. he was very happy that he is able to drink. placed on clear liquid diet. Vitals/I&O/Wt Last Vital Signs Temp 98.2 F 03/21/22 12:00 Pulse 93 03/21/22 12:00 Resp 15 03/21/22 12:00 BP 136/79 03/21/22 12:00 Pulse Ox 95 03/21/22 12:00 O2 Del Method 03/21/22 08:00 O2 Flow Rate 6 03/20/22 14:30 03/20/22 03/21/22 03/21/22 22:59 06:59 14:59 Intake Total 2360 / 4598.000 1300 / 5898.000 1000 / 1000 Output Total 1450 / 2000 Balance 2360 / 4048.000 -150 / 3898.000 1000 / 1000 Weight last 48 hrs Weight 116.165 kg Weight 71.214 kg Physical Exam Narrative: General: Alert oriented x3, patient seen sitting up in bed appearing comfortable at this time with significant other at bedside. HEENT: Normocephalic, atraumatic, EOMI, breathing normally. Cardio: Regular rate rhythm, normal S1-S2, Respiratory: Good bilateral air entry, no wheezes no rhonchi appreciated GI: Abdomen soft, nontender, nondistended, bowel sounds +, abdomen covered with dressing. I did not take down dressing. Extremities: NO LE EDEMA Urinary Catheter Management: Denise: Cath Placed During This Visit: yes Reason for Continuing Indwelling Catheter: Perioperative Use in Selected Surgeries Urinary Catheter Date of Insertion: 03/20/22 Urinary Catheter Time of Insertion: 12:30 Data : 03/21/22 13:18 03/21/22 05:01 Micro: Microbiology 03/19/22 19:18 Blood Culture - Preliminary Blood NEGATIVE TO DATE 03/19/22 19:17 Blood Culture - Preliminary Blood NEGATIVE TO DATE 03/20/22 01:20 MRSA Culture - Final Nose A&P Assessment and plan (1) Leaking PEG tube: (2) Acute blood loss as cause of postoperative anemia: (3) Hypokalemia: (4) Cellulitis: (5) COPD (chronic obstructive pulmonary disease): (6) Hypertension: (7) Throat cancer: (8) Diabetes mellitus: (9) Coronary artery disease: Plan #Perforation secondary to PEG tube dislodgment s/p surgical repair and PEG removal, POD 1 #Initially PEG tube placed secondary to squamous cell carcinoma right tonsil #Anemia, postoperative? #Diabetes mellitus #Hypertension #CAD #COPD #Immunocompromise status #Squamous cell cancer right tonsil status postchemotherapy #severe protein calorie malnutrition -Continue to hold Eliquis and aspirin. Will discuss with sx regarding resuming them. ? iron panel, ferritin ok. ? Transfuse less than 7. HB 9.9 today. ? Continue Protonix twice daily, Carafate ? Continue to replete electrolytes ? Order sliding scale ? Concern for cellulitis around PEG tube site. Continue vancomycin, cefepime. -Metformin on hold. ? Rosuvastatin continued ? Speech eval complete. gi series complete - start clear liquids - f/u with gen surg outpt - Dressing change as ordered in the form of daily packing of the wound with half-inch Nu Gauze wet-to-dry and application of zinc oxide cream 2-3 times a day on the excoriated skin area or as needed -Encourage ambulation with assistance -nutrition consult placed. optimize nutrition. encourage protein shakes - advance diet as tolerated SCDs for DVT prophylaxis, full code Attestations Medical Necessity Statement*: possible dc in 24-48 hours Coding Level of Care Code Acute Featheredge Machine Operator for g Fwd Diagnoses Leaking PEG tube K94.23 Acute blood loss as cause of postoperative anemia D62 Hypokalemia E87.6 Cellulitis L03.90 COPD (chronic obstructive pulmonary disease) J44.9 Hypertension I10 Throat cancer C14.0 Diabetes mellitus E11.9 Coronary artery disease I25.10
[2022-03-21 13:44] LABS: Hematocrit 31.9 % (42.0-52.0); Hemoglobin 9.9 g/dL (11.7-16.6)
[2022-03-21 17:42] LABS: Glucose Point of Care 117 mg/dL (70-110)
--- NOTE | 2022-03-21 18:37 | PC.NURSE ---
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
[2022-03-21 20:58] LABS: Glucose Point of Care 114 mg/dL (70-110)
[2022-03-21] MEDS: hyDROXYzine 25 mg Capsule PO (23:07)
[2022-03-22] VITALS (8 sets, daily range): BP systolic 145–167; BP diastolic 82–90; PULSE 90–111; RESP 16–20; TEMP 36.4–36.8; O2SAT 94–97; BMI 42.5
[2022-03-22 01:53] LABS: Basophils % 0.1 %; Eosinophils # 0.1 10^3/uL (0.0-0.8); Eosinophils % 0.7 %; Hematocrit 30.5 % (42.0-52.0); Hemoglobin 9.6 g/dL (11.7-16.6); Lymphocytes # 1.2 10^3/uL (0.8-4.8); Lymphocytes % 7.6 %; Mean Corpuscular HGB Conc 31.5 g/dL (30.0-36.0); Mean Corpuscular Hemoglobin 28.8 pg (28.0-34.0); Mean Corpuscular Volume 91.6 fl (80-94); Mean Platelet Volume 9.1 fL (7.4-10.4); Monocytes # 0.6 10^3/uL (0.2-0.9); Neutrophils # 13.68 10^3/uL (1.8-7.7); Neutrophils % 86.2 %; Nucleated Red Blood Cells % 0.2 %; Platelet Count 330 10^3/cmm (130-400); Red Blood Count 3.33 10^6/uL (4.1-5.3); Red Cell Distribution Width 14.5 % (12.1-15.1); White Blood Count 15.9 10^3/uL (4.0-10.0)
[2022-03-22 02:12] LABS: Anion Gap 15.4 (5-19); Blood Urea Nitrogen 7 mg/dL (8-23); Calcium 8.6 mg/dL (8.5-10.5); Carbon Dioxide 24 mmol/L (22-29); Chloride 108 mmol/L (98-107); Creatinine Clr Calc Pharmacy 108.5495; Glomerular Filtration Rate 135.2 mL/min (90-130); Glucose 97 mg/dL (65-115); Osmolality Calculated 294 mOsm/kg (285-295); Potassium 4.4 mmol/L (3.5-5.1); Sodium 143 mmol/L (136-145)
[2022-03-22] MEDS: vancomycin 1,000 MG in sodium chloride 0.9% 250 ML 250 MG IV (03:04)
[2022-03-22] MEDS: sodium chlor 0.9% + KCl 40 mEq 40 MEQ/1,000 ML BAG 125 MEQ IV (03:20)
[2022-03-22 05:30] LABS: Vancomycin Trough 30.7 ug/mL (10-15)
[2022-03-22 06:44] LABS: Glucose Point of Care 90 mg/dL (70-110)
--- NOTE | 2022-03-22 06:55 | PM.PN ---
Subjective Subjective: Patient was seen and evaluated today and yesterday evening as well. Continues to do well and tolerating p.o. intake. Upper GI study was done yesterday per my request and it did show 1. Patent esophagus. 2. Prominent gastric mucosa suggesting mild gastritis. No gastric mass or ulceration. No duodenal ulcer. Barium spills freely into the proximal jejunum. ? Started on clear liquid diet with aspiration precautions. Medications: Reviewed: Yes Vitals/I&O/Wt Last Vital Signs Temp 97.9 F 03/22/22 04:00 Pulse 98 03/22/22 04:00 Resp 16 03/22/22 04:00 BP 167/82 03/22/22 04:00 Pulse Ox 97 03/22/22 04:00 O2 Del Method 03/22/22 04:00 O2 Flow Rate 6 03/20/22 14:30 03/21/22 03/21/22 03/22/22 14:59 22:59 06:59 Intake Total 1480 / 1480 1300 / 2780 1300 / 4080 Output Total 200 / 200 Balance 1480 / 1480 1300 / 2780 1100 / 3880 Physical Exam Narrative: Patient is conscious alert oriented X3 No apparent distress Head and neck examination PERRLA Abdomen nontender soft mildly at the incision sites and skin excoriation is stable and responding to local measures , pack was removed and repacked by half-inch Nu Gauze nondistended soft no organomegaly guarding or rigidity/no signs of peritonitis Rest of the incisions are clean dry and intact and skin олег in place Urinary Catheter Management: Denise: Cath Placed During This Visit: yes Reason for Continuing Indwelling Catheter: Perioperative Use in Selected Surgeries Urinary Catheter Date of Insertion: 03/20/22 Urinary Catheter Time of Insertion: 12:30 Data : 03/22/22 01:43 03/22/22 01:43 A&P Assessment and plan (1) PEG tube malfunction: Assessment 66 years old gentleman status post laparoscopic partial gastrectomy and removal of PEG tube 03/20/2022 Plan Continue Dressing change as ordered in the form of daily packing of the wound with half-inch Nu Gauze wet-to-dry and application of zinc oxide cream 2-3 times a day on the excoriated skin area or as needed Encourage ambulation with assistance Incentive spirometer every hour Will advance to full liquid diet and protein shakes(patient was educated that he would be on full liquid diet at least for the coming week before starting and advancing to soft GI diet) Patient and family education and set expectations From surgical standpoint of view patient can be discharged home when appropriate by medical service. Assurance and education All questions have been answered and all concerns have been addressed to patient's satisfaction. Attestations Medical Necessity Statement*: Per admitting service Time Spent in Patient Care: 16 - 35 minutes Coding Level of Care Code Acute Conference And Event Organiser for Chg Fwd Diagnoses PEG tube malfunction K94.23
[2022-03-22] MEDS: cyanocobalamin 1,000 mcg Tablet 1000 MCG PO (08:59)
[2022-03-22] MEDS: pantoprazole 40 mg SDV IVP (08:59)
[2022-03-22] MEDS: atorvastatin 40 mg Tablet 80 MG PO (08:59)
[2022-03-22] MEDS: piperacillin-tazobactam 3.375 GM in sodium chloride 0.9% (plus) 50 ML IV (09:00)
[2022-03-22] MEDS: oxyCODONE-APAP 5-325 mg Tablet 1 TAB PO (09:02)
[2022-03-22] MEDS: sucralfate 1 gm/10 mL Oral Liq UDC PO (10:10)
--- NOTE | 2022-03-22 10:43 | PC.SOCIAL ---
IMM update IMM updated with patient at bedside. Copy of page 2 provided. Patient verbalized understanding. Copy in chart initialed, dated and timed.
[2022-03-22 12:58] LABS: Glucose Point of Care 88 mg/dL (70-110)
--- NOTE | 2022-03-22 13:54 | PM.DCS ---
Discharge Providers Date of Admission: 03/19/22 20:51 Date of Discharge: March 22, 2022 Attending Provider at Admission: Barrett Burks MD Attending Provider at Discharge: Cristine Whitley MD Primary Care Provider: Katrina Gaytan MD Diagnoses at Discharge Discharge Diagnosis (1) PEG tube malfunction: Status: Resolved Reason for Visit Reason for Visit: PEG TUBE BLEED Brief History: Chacorta Siegel is a 66 year old male with a past medical history of noninsulin-dependent type diabetes mellitus, history of CAD status post stenting to LAD, history of atrial flutter on Eliquis, history of CVA no documentation of atrial fibrillation that I could find in the chart, history of recently diagnosed tonsillar cancer seen by oncology, radiation oncology, status post port placement, PEG tube placement, recent round of chemotherapy on Sunday, with PEG tube placement with concerns for leak, hypertension, sleep apnea who presents [facility] due to black tarry seepage around PEG tube, he tells me he is chronically constipated, no nausea, no vomiting, no hemoptysis, no fevers, chills, does report fatigue, malaise, weight loss, poor appetite.? He denies any bloody or black stools.? But does tell me that around the PEG tube site and the PEG tube he has noticed black tarry output, and also bloody output.? He is on Eliquis 5 mg twice daily for history of atrial flutter, diagnosed in 2019.? Also on aspirin 81 mg once daily.? He also reports erythema, tenderness, around PEG tube site Hospital Course Hospital Course Patient was admitted for dislodged PEG tube and perforation. He was taken to surgery for repair and PEG tube removal. Hemoglobin was also low during that admission but patient did not require blood transfusion. Most likely etiology was bleeding due to perforation and PEG tube dislodgment. Evaluation was done and patient was started on clear liquids. He is to remain on full liquid diet until seen by surgery as an outpatient. He also had a little bit of cellulitis around PEG tube site. He was placed on vancomycin and Zosyn during hospital stay. Patient was discharged home on Augmentin. Of note during hospital stay GI series was also completed postsurgery which did not show any leaks. Patient able to ambulate and was taught dressing changes. Patient discharged home in stable condition. Discussed with general surgery. Eliquis to be resumed within 48 hours of discharge. Physical Exam Narrative: General: Alert oriented x3, patient seen sitting up in bed appearing comfortable at this time with significant other at bedside. HEENT: Normocephalic, atraumatic, EOMI, breathing normally. Cardio: Regular rate rhythm, normal S1-S2, Respiratory: Good bilateral air entry, no wheezes no rhonchi appreciated GI: Abdomen soft, nontender, nondistended, bowel sounds +, abdomen covered with dressing. I did not take down dressing. Extremities: NO LE EDEMA Urinary Catheter Management: Denise: Cath Placed During This Visit: yes Reason for Continuing Indwelling Catheter: Perioperative Use in Selected Surgeries Urinary Catheter Date of Insertion: 03/20/22 Urinary Catheter Time of Insertion: 12:30 Discharge Data Studies Completed and Pending Completed Studies During Hospitalization Category Date Time Status CTA abdomen pelvis [CT angio abdomen pelvis 83224] Stat Cat Scan 03/19/22 20:19 Completed [place] upper GI gastrografin [id number] Routine Exams 03/21/22 08:00 Completed XR chest 1V portable [id number] Stat Exams 03/19/22 19:15 Completed Pending at discharge Category Date Time Status ES surgery / GI images Routine Exams 03/20/22 10:25 Ordered ABO/Rh Type Routine Lab 03/19/22 19:17 Results Blood Culture Stat Lab 03/19/22 19:18 Results Complete Crossmatch Routine Lab 03/19/22 19:17 Results FFP [Frozen Plasma FZ <24 1st Cont] Routine Lab 03/19/22 19:17 Results Gastricult Occult BLD Stat Lab 03/19/22 18:59 Ordered Leukocyte Reduced RBC Stat Lab 03/19/22 19:17 Results Type and Screen Routine Lab 03/19/22 19:17 Results Vancomycin Trough Timed Lab 03/22/22 16:00 Ordered Pathology: Surgical [PTH] Routine Pth 03/20/22 14:33 Received Radiology Impressions Chest X-Ray 03/19/22 19:15 IMPRESSION: 1. Interval placement of a right subclavian Port-A-Cath with the tip in the superior vena cava. 2. Linear atelectasis or scarring in right lower lobe. 3. Incidental/nonacute findings are listed in the report. The Abdomen/Pelvis CTA 03/19/22 20:19 IMPRESSION: 1. Interval placement of a percutaneous gastrostomy tube. The buried bumper has eroded through the anterior gastric wall and abuts the posterior surface of the anterior abdominal wall. Free intraperitoneal air and inflammation around the bumper as well as an additional few foci of inflammation more laterally in the left upper quadrant adjacent to the left lobe of the liver. 2. Mildly hyperdense focus in the right bladder base. This is better visualized compared with the prior imaging studies, possibly due to better bladder distention. It is uncertain whether this may represent a small bladder stone versus a bladder mass. Recommend clinical correlation and consider further evaluation with cystoscopy. 3. No evidence for gastrointestinal bleed. Nuclear medicine imaging with tagged red blood cell scan may be obtained for further evaluation if clinical concern for gastrointestinal bleed persists. 4. Multiple areas of fatty infiltration of the liver. 5. Atherosclerotic disease with multilevel stenoses in the pelvis. No occlusion, thrombosis, extravasation, dissection, or aneurysm. 6. Variant arterial anatomy as described in the report. 7. Incidental/nonacute findings are listed in the report. COMMENTS: THIS REPORT CONTAINS FINDINGS THAT MAY BE CRITICAL TO PATIENT CARE. The findings were verbally communicated via telephone conference with Dr. Giron at 9:53 PM CDT on 03/19/2022. The findings were acknowledged and understood. ADDENDUM: 03/19/22 [id number] THIS REPORT CONTAINS FINDINGS THAT MAY BE CRITICAL TO PATIENT CARE. The findings were verbally communicated via telephone conference with the patient's surgeon at 11:08 PM CDT on 03/19/2022. The findings were acknowledged and understood. Specifically, position of the gastric tube outside the gastric lumen within a largely contained perforation was discussed. Gastrografin Study 03/21/22 08:00 IMPRESSION: 1. Patent esophagus. 2. Prominent gastric mucosa suggesting mild gastritis. No gastric mass or ulceration. No duodenal ulcer. Barium spills freely into the proximal jejunum. Laboratory Results WBC 15.9 10^3/uL (4.0-10.0) H 03/22/22 01:43 RBC 3.33 10^6/uL (4.1-5.3) L 03/22/22 01:43 Hgb 9.6 g/dL (11.7-16.6) L 03/22/22 01:43 Hct 30.5 % (42.0-52.0) L 03/22/22 01:43 MCV 91.6 fl (80-94) 03/22/22 01:43 MCH 28.8 pg (28.0-34.0) 03/22/22 01:43 MCHC 31.5 g/dL (30.0-36.0) 03/22/22 01:43 RDW 14.5 % (12.1-15.1) 03/22/22 01:43 Plt Count 330 10^3/cmm (130-400) 03/22/22 01:43 MPV 9.1 fL (7.4-10.4) 03/22/22 01:43 Neut % (Auto) 86.2 % 03/22/22 01:43 Lymph % (Auto) 7.6 % 03/22/22 01:43 Gilchrist % (Auto) 4.0 % 03/22/22 01:43 Eos % (Auto) 0.7 % 03/22/22 01:43 Baso % (Auto) 0.1 % 03/22/22 01:43 Neut # (Auto) 13.68 10^3/uL (1.8-7.7) H 03/22/22 01:43 Lymph # (Auto) 1.2 10^3/uL (0.8-4.8) 03/22/22 01:43 Gilchrist # (Auto) 0.6 10^3/uL (0.2-0.9) 03/22/22 01:43 Eos # (Auto) 0.1 10^3/uL (0.0-0.8) 03/22/22 01:43 Baso # (Auto) 0.0 10^3/uL (0.0-0.1) 03/22/22 01:43 Nucleated RBC % (auto) 0.2 % 03/22/22 01:43 Nucleated RBCs # 0.0 /100WBC 03/22/22 01:43 PT 20.20 SECONDS (12.1-14.9) H 03/19/22 19:17 INR 1.69 (0.8-1.2) H 03/19/22 19:17 APTT 34.9 SECONDS (23.9-36.7) 03/19/22 19:17 Sodium 143 mmol/L (136-145) 03/22/22 01:43 Potassium 4.4 mmol/L (3.5-5.1) 03/22/22 01:43 Chloride 108 mmol/L (98-107) H 03/22/22 01:43 Carbon Dioxide 24 mmol/L (22-29) 03/22/22 01:43 Anion Gap 15.4 (5-19) 03/22/22 01:43 BUN 7 mg/dL (8-23) L 03/22/22 01:43 Creatinine 0.6 mg/dL (0.7-1.2) L 03/22/22 01:43 GFR Calculation 135.2 mL/min (90-130) H 03/22/22 01:43 Glucose 97 mg/dL (65-115) 03/22/22 01:43 POC Glucose 88 mg/dL (70-110) 03/22/22 12:54 Calculated Osmolality 294 mOsm/kg (285-295) 03/22/22 01:43 Lactic Acid 2.0 mmol/L (0.5-2.2) 03/19/22 19:17 Calcium 8.6 mg/dL (8.5-10.5) 03/22/22 01:43 Magnesium 2.0 mg/dL (1.7-2.3) 03/21/22 05:01 Iron 44 ug/dL (59-158) L 03/19/22 19:17 TIBC 187 mcg/dl 03/19/22 19:17 % Saturation 23.5 % (20-50) 03/19/22 19:17 Unsat Iron Binding 143 ug/dL (112-347) 03/19/22 19:17 Ferritin 359 ng/mL (30-400) 03/19/22 19:17 Total Bilirubin 0.3 mg/dL (0.15-1.2) 03/19/22 19:17 AST 29 U/L (0-40) 03/19/22 19:17 ALT 23 U/L (0-41) 03/19/22 19:17 Alkaline Phosphatase 95 U/L (40-130) 03/19/22 19:17 C-Reactive Protein 75.1 mg/L (0.0-4.9) H 03/19/22 19:17 Total Protein 5.6 g/dL (6.6-8.7) L 03/19/22 19:17 Albumin 2.3 g/dL (3.5-5.2) L 03/19/22 19:17 Globulin 3.3 g/dL (1.3-4.6) 03/19/22 19:17 Procalcitonin 0.40 ng/mL (0-0.5) 03/19/22 19:17 Vancomycin Trough 30.7 ug/mL (10-15) H* 03/22/22 04:41 Blood Type B Positive 03/19/22 19:17 Rho(D) Type Positive 03/19/22 19:17 Antibody Screen Negative 03/19/22 19:17 Crossmatch See Detail 03/19/22 19:17 Vitals Last Vital Signs Temp 98.3 F 03/22/22 11:19 Pulse 95 03/22/22 11:19 Resp 16 03/22/22 11:19 BP 155/90 03/22/22 11:19 Pulse Ox 96 03/22/22 11:19 O2 Del Method 03/22/22 11:19 O2 Flow Rate 6 03/20/22 14:30 Discharge Plan Discharge Patient Disposition: Home Condition: Stable Prescriptions: New sucralfate 1 gram tablet 1 g PO BID 7 Days Qty: 14 0RF amoxicillin-pot clavulanate 875-125 mg tablet 1 tab PO BID 7 Days Qty: 14 0RF Protonix 40 mg tablet,delayed release (DR/EC) 40 mg PO DAILY 30 Days Qty: 30 0RF Continued prochlorperazine maleate [Compazine] 10 mg tablet 10 mg PO Q6H PRN (Reason: nausea and vomiting) Qty: 30 5RF lorazepam 0.5 mg tablet 0.5 mg PO TID PRN (Reason: nausea and vomiting) Qty: 30 1RF Rx Instructions: for SEVERE NAUSEA/VOMITING, anxiety and or insomnia Lidocaine Viscous 2 % solution 5 ml mucous membrane Q6H PRN (Reason: Pain) Qty: 100 0RF oxycodone-acetaminophen [Percocet] 5-325 mg tablet 1 - 2 tab PO .q4-6hr PRN (Reason: pain) 30 Days Qty: 60 0RF albuterol sulfate 90 mcg/actuation HFA aerosol inhaler 2 inh INHALATION Q4H PRN (Reason: shortness of breath or wheezing) Qty: 18 0RF acetaminophen 500 mg Tablet 1,000 mg PO BID cyclobenzaprine 10 mg Tablet 10 mg PO TID PRN (Reason: Muscle Spasm) albuterol sulfate 2.5 mg /3 mL (0.083 %) Solution For Nebulization 2.5 mg INHALATION Q6H PRN (Reason: Shortness Of Breath) aspirin 81 mg Tablet,Delayed Release (Dr/Ec) 81 mg PO QAM Vitamin D3 25 mcg (1,000 unit) Tablet 25 mcg PO QPM cyanocobalamin (vitamin B-12) [Vitamin B-12] 1,000 mcg Tablet 1,000 mcg PO QAM metformin 1,000 mg Tablet 500 mg PO QAM rosuvastatin [Crestor] 20 mg Tablet 10 mg PO QAM Spiriva Respimat 2.5 mcg/actuation Mist 2 inh INHALATION QAM mometasone-formoterol 200-5 mcg/actuation Hfa Aerosol Inhaler 2 puff INHALATION BID polyethylene glycol 3350 [Miralax] 17 gram Powder In Packet 17 g PO DAILY PRN (Reason: Constipation) Held Eliquis 5 mg Tablet 5 mg PO BID Hold Instructions: Resume on 03/11/22. Discontinued levofloxacin 500 mg tablet 500 mg PO DAILY Qty: 7 0RF Rx Instructions: rx filled 03/14/22 7d/s Discharge Orders: Discharge Order (Routine); Ordered 03/22/22 Ordered By: Cristine Whitley Other Ambulatory Orders: Basic Metabolic Panel (Routine) Timeframe: 3 Days Facility: [facility] - Location: Lab - Main Lab Ordered By: Cristine Whitley Referrals: Vinicius Mead MD [Physician] - 03/30/22 2:50 pm Katrina Gaytan MD [Primary Care Provider] - 03/30/22 8:30 am Discharge Diet: Full LIquid Discharge Activity: Resume usual activity Patient Instructions: Opioid Safety Activity Restrictions/Additional Instructions: Please follow-up for liquid diet until seen by general surgery as an outpatient. Please resume your Eliquis tomorrow 03/23/2022. Discharge Attestations Time Spent in Discharge Care*: less than 30 min Quality Metrics Clinical Quality Measures [ No reported AMI, CVA or VTE this stay] Coding Level of Care Code Acute Chg FW DC note Diagnoses PEG tube malfunction K94.23
== END 2022-03-22 14:16 | disposition home or self-care (01) | DRG 326 ==
LOC: ER 20:54 → MEDSURG 21:58
PROVIDERS: Anesthesiology; Surgery; Admitting Provider Family Medicine; Emergency Provider Emergency Medicine; PCP Family Medicine; Visit Provider Internal Medicine
PROC: 0DB64Z3 Excision of Stomach, Percutaneous Endoscopic Approach, Vertical (ICD-10-PCS; CPT 43775; principal; 2022-03-20 10:30)
PROC: 0DJ08ZZ Inspection of Upper Intestinal Tract, Via Natural or Artificial Opening Endoscopic (ICD-10-PCS; CPT 43235; 2022-03-20 10:30)
DX: K94.23 Gastrostomy malfunction (principal); E43 Unspecified severe protein-calorie malnutrition; I48.92 Unspecified atrial flutter; Z68.41 Body mass index [BMI] 40.0-44.9, adult; D84.821 Immunodeficiency due to drugs; L03.311 Cellulitis of abdominal wall; D62 Acute posthemorrhagic anemia; E11.9 Type 2 diabetes mellitus without complications; I25.10 Atherosclerotic heart disease of native coronary artery without angina pectoris; Z95.5 Presence of coronary angioplasty implant and graft; Z86.73 Personal history of transient ischemic attack (TIA), and cerebral infarction without residual deficits; C09.9 Malignant neoplasm of tonsil, unspecified; Z95.828 Presence of other vascular implants and grafts; Z79.899 Other long term (current) drug therapy; I10 Essential (primary) hypertension; G47.33 Obstructive sleep apnea (adult) (pediatric); K59.09 Other constipation; F17.210 Nicotine dependence, cigarettes, uncomplicated; Z79.82 Long term (current) use of aspirin; Z79.51 Long term (current) use of inhaled steroids; Z79.891 Long term (current) use of opiate analgesic; T45.1X5A Adverse effect of antineoplastic and immunosuppressive drugs, initial encounter; E87.6 Hypokalemia
CPT/HCPCS: 36415; 36416; 36430; 51702; 71045; 74174; 74240; 80048; 80053; 80202; 82728; 82962; 83540; 83550; 83605; 83735; 84145; 85014; 85018; 85025; 85610; 85730; 86140; 86850; 86900; 86920; 86927; 87040; 87641; 88300; 88309; 92523; 92524; 92610; 96365; 96367; 96375; 99285; C9113; J0330; J2270; J2370; J2405; J2543; J2704; J2710; J3010; J3370; J3475; J3480; J3490; J7030; J7050; P9016; P9017; P9041; Q9963; Q9967

== ENCOUNTER → 2022-03-30 14:45 | Outpatient (BNVA) | payer OTHER, MEDICARE, SELFPAY | PROVIDERS: PCP Family Medicine; Visit Provider Surgery | DX: Z09 Encounter for follow-up examination after completed treatment for conditions other than malignant neoplasm (principal) | CPT/HCPCS: 99024 ==

== ENCOUNTER → 2022-04-03 07:47 | Outpatient (BNVA) | payer OTHER, MEDICARE, SELFPAY | PROVIDERS: PCP Family Medicine; Visit Provider Nurse Practitioner | DX: Z51.0 Encounter for antineoplastic radiation therapy (principal); C09.8 Malignant neoplasm of overlapping sites of tonsil; C77.8 Secondary and unspecified malignant neoplasm of lymph nodes of multiple regions; J43.2 Centrilobular emphysema; N40.0 Benign prostatic hyperplasia without lower urinary tract symptoms; F17.210 Nicotine dependence, cigarettes, uncomplicated; Z99.81 Dependence on supplemental oxygen; E11.9 Type 2 diabetes mellitus without complications; Z95.828 Presence of other vascular implants and grafts; D64.9 Anemia, unspecified; Z79.899 Other long term (current) drug therapy; Z79.4 Long term (current) use of insulin | CPT/HCPCS: 77386; 99214 ==

== ENCOUNTER → 2022-04-10 07:57 | Outpatient (BNVA) | payer OTHER, MEDICARE, SELFPAY | PROVIDERS: PCP Family Medicine; Visit Provider Nurse Practitioner | DX: Z51.0 Encounter for antineoplastic radiation therapy (principal); C09.8 Malignant neoplasm of overlapping sites of tonsil; C77.8 Secondary and unspecified malignant neoplasm of lymph nodes of multiple regions; Z79.899 Other long term (current) drug therapy | CPT/HCPCS: 77386; 99214 ==

== ENCOUNTER 2022-04-13 06:46 | Outpatient (CLI) | payer OTHER, MEDICARE, SELFPAY ==
--- NOTE | 2022-04-13 | USCV_ITS ---
Chacorta Siegel Age: 66 Gender: M : 1955 Exam Date: 04/13/2022 07:04 Ordering Phys: Katrina Gaytan MD Technologist: DAYSI Exam Location[place] [facility] [place]: AAA Screening HISTORY: Diameter (cm) AP x Transverse x Length Velocity (cm/s) Waveform Prox Aorta: 2.16 x 2.78 x 55.40 Triphasic Mid Aorta: 1.97 x 2.13 x 63.85 Triphasic Distal Aorta: 1.65 x 1.58 x 30.10 Triphasic Right Iliac Prox: 1.51 x 1.09 x 49.40 Triphasic Left Iliac Prox: 1.28 x 1.07 x 80.00 Triphasic Stent Prox Landing x x Aneurysmal Sac Max x x Lt Lat Sac Dim Rt Lat Sac Dim Stent Dist Landing x x Right Iliac Stent x x Left Iliac Stent x x Right Renal Art Left Renal Art FINDINGS: Limited exam due to heavy gas. No AAA seen at this time Mild diffuse plaques in the abdominal aorta Normal Doppler flow velocities in the aorta and iliac arteries Normal aortic and iliac artery dimensions CONCLUSIONS 1. Normal abdominal aortic dimensions with no evidence of aneurysm. 2. Normal /near normal proximal common iliac artery dimensions. 3. No evidence of any significant stenosis in the abdominal aorta or in the proximal common iliac arteries, based on the Doppler flow velocities. 4. Mild diffuse plaques in the abdominal aorta. Dr Sada Fay MD FAC (Electronically Signed) Final Date: 13 April 2022 22:37 S
== END 2022-04-13 06:47 | disposition home or self-care (01) ==
LOC: RAD 06:47
PROVIDERS: PCP Family Medicine; Visit Provider Family Medicine
DX: Z13.6 Encounter for screening for cardiovascular disorders (principal); I70.0 Atherosclerosis of aorta
CPT/HCPCS: 76706

== ENCOUNTER → 2022-04-20 12:45 | Outpatient (BNVA) | payer OTHER, SELFPAY | PROVIDERS: PCP Family Medicine; Visit Provider Internal Medicine Cardiovascular Disease | DX: R00.0 Tachycardia, unspecified (principal); I10 Essential (primary) hypertension; F17.210 Nicotine dependence, cigarettes, uncomplicated; I25.10 Atherosclerotic heart disease of native coronary artery without angina pectoris | CPT/HCPCS: 99204 ==

== ENCOUNTER 2022-04-24 09:00 | Oncology outpatient (recurring) (ONCR) | payer OTHER, MEDICARE, MEDICAID, SELFPAY ==
[2022-03-27 08:18] VITALS: BMI 26.5
[2022-03-27 08:35] LABS: Basophils % 0.4 %; Eosinophils # 0.1 10^3/uL (0.0-0.8); Eosinophils % 1.2 %; Hematocrit 29.8 % (42.0-52.0); Hemoglobin 9.2 g/dL (11.7-16.6); Lymphocytes # 1.3 10^3/uL (0.8-4.8); Mean Corpuscular HGB Conc 30.9 g/dL (30.0-36.0); Mean Corpuscular Hemoglobin 28.4 pg (28.0-34.0); Mean Platelet Volume 9.3 fL (7.4-10.4); Monocytes # 0.5 10^3/uL (0.2-0.9); Monocytes % 4.5 %; Neutrophils # 8.94 10^3/uL (1.8-7.7); Neutrophils % 81.1 %; Nucleated Red Blood Cells % 0 %; Platelet Count 407 10^3/cmm (130-400); Red Blood Count 3.24 10^6/uL (4.1-5.3); Red Cell Distribution Width 14.6 % (12.1-15.1)
[2022-03-27 09:04] LABS: Alanine Aminotransferase 15 U/L (0-41); Albumin Level 2.2 g/dL (3.5-5.2); Alkaline Phosphatase 123 U/L (40-130); Anion Gap 12.8 (5-19); Aspartate Amino Transferase 13 U/L (0-40); Blood Urea Nitrogen 6 mg/dL (8-23); Calcium 8.1 mg/dL (8.5-10.5); Carbon Dioxide 27 mmol/L (22-29); Chloride 106 mmol/L (98-107); Globulin 3.1 g/dL (1.3-4.6); Glomerular Filtration Rate 113.2 mL/min (90-130); Glucose 87 mg/dL (65-115); Osmolality Calculated 291 mOsm/kg (285-295); Potassium 3.8 mmol/L (3.5-5.1); Sodium 142 mmol/L (136-145); Total Bilirubin 0.2 mg/dL (0.15-1.2); Total Protein 5.3 g/dL (6.6-8.7)
--- NOTE | 2022-03-27 11:23 | ONCRAD TMN_ITS ---
Radiation Oncology Treatment Management Note Patient Name: Chacorta Siegel Date of : 1955 Date of Service: 03/27/2022 Attending Physician: Rahat Parham M.D. 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 The patient was evaluated at the [facility]'s Emergency Department in December for odynophagia. A CT scan of the neck ordered on December 27, 2021 demonstrated irregular fluid collections within the bilateral sienna-tonsillar tissues measuring 4.1 cm x 2.4 cm x 2 cm and bilateral enhancing cervical lymphadenopathy. He was transferred to the [facility] in [place], [place] for further management. A flexible laryngoscopy was performed by the on-call tube skiver. Significant findings included enlargement of the right tonsil with exudate. 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 A repeat neck CT scan described irregular mucosal thickening and enhancement of the oropharyngeal and hypopharyngeal mucosa involving the tonsils, glossotonsillar pillars, base of tongue, and inferior soft palate. Also reported were bilateral cervical lymphadenopathy within level II and level III lymph node stations. He was discharged with referral for definitive management. PET imaging obtained on February 07, 2022 confirmed hypermetabolic activity within the oropharyngeal mass and bilateral cervical levels II and III. Combined modality treatment was recommended. The patient has received 12 Gy of a prescribed 50 [place] with an intensity modulated radiotherapy plan utilizing a step and shoot treatment technique. An additional 20 Gy will be delivered to the gross tumor volume and high risk cervical lymph nodes subsequent to the initial treatment plan. He has been prescribed cisplatin (40 mg/m2) weekly during radiotherapy. Upon review of systems, he denied any complaints related to radiotherapy. On physical examination, the patient weighed 159 lbs. His temperature was 97.5 ???F and the blood pressure was 120/74 mmHg. His pulse was 107 bpm and the respiratory rate was 16. There was no erythema within the treatment matson. Continue head and neck radiotherapy as planned. Signed by: Dr. Rahat Parham 03/27/2022 11:23:01 AM
[2022-03-27] MEDS: fosaprepitant 150 MG in sodium chloride 0.9% 150 ML 300 MG IV (11:39)
[2022-03-27] MEDS: famotidine 20 mg/2 mL INJ IVP (11:40)
[2022-03-27] MEDS: OLANZapine 5 mg TABLET PO (11:40)
[2022-03-27] MEDS: diphenhydrAMINE 50 mg/mL SDV 1mL 25 MG IVP (11:40)
[2022-03-27] MEDS: palonosetron 0.25 mg/5 mL SDV IVP (12:21)
[2022-03-27] MEDS: CISPLATIN IV (13:04)
[2022-03-27] MEDS: SODIUM CHLORIDE 0.9% IV (13:04)
[2022-03-27 13:28] LABS: Ferritin 250 ng/mL (30-400); Iron 18 ug/dL (59-158); Percent Saturation 12.3 % (20-50); Total Iron Binding Capacity 146 mcg/dl; Unsaturated Iron Binding 128 ug/dL (112-347)
[2022-03-27 13:43] LABS: Vitamin B12 1045 pg/mL (232-1245)
[2022-03-27] MEDS: potassium chloride 20 MEQ in sodium chloride 0.9% 500 ML 500 MEQ IV (14:13)
[2022-03-27] MEDS: FUROsemide 10 mg/mL SDV 2mL 20 MG IVP (14:20)
[2022-03-27 16:01] VITALS: BP 122/64; PULSE 66; RESP 16; TEMP 36.1; O2SAT 98
[2022-04-03 08:15] LABS: Basophils % 0.3 %; Eosinophils # 0.1 10^3/uL (0.0-0.8); Eosinophils % 1.4 %; Hematocrit 31.5 % (42.0-52.0); Hemoglobin 9.7 g/dL (11.7-16.6); Lymphocytes # 1.2 10^3/uL (0.8-4.8); Lymphocytes % 12.6 %; Mean Corpuscular HGB Conc 30.8 g/dL (30.0-36.0); Mean Corpuscular Hemoglobin 28.1 pg (28.0-34.0); Mean Corpuscular Volume 91.3 fl (80-94); Mean Platelet Volume 8.8 fL (7.4-10.4); Monocytes # 0.6 10^3/uL (0.2-0.9); Monocytes % 6.2 %; Neutrophils # 7.37 10^3/uL (1.8-7.7); Neutrophils % 77.7 %; Nucleated Red Blood Cells % 0 %; Platelet Count 286 10^3/cmm (130-400); Red Blood Count 3.45 10^6/uL (4.1-5.3); Red Cell Distribution Width 14.7 % (12.1-15.1); White Blood Count 9.5 10^3/uL (4.0-10.0)
[2022-04-03 08:39] LABS: Alanine Aminotransferase 10 U/L (0-41); Albumin Level 2.5 g/dL (3.5-5.2); Alkaline Phosphatase 127 U/L (40-130); Anion Gap 14.2 (5-19); Aspartate Amino Transferase 14 U/L (0-40); Blood Urea Nitrogen 10 mg/dL (8-23); Calcium 8.6 mg/dL (8.5-10.5); Carbon Dioxide 30 mmol/L (22-29); Chloride 98 mmol/L (98-107); Globulin 3.6 g/dL (1.3-4.6); Glomerular Filtration Rate 166.9 mL/min (90-130); Glucose 106 mg/dL (65-115); Osmolality Calculated 285 mOsm/kg (285-295); Potassium 4.2 mmol/L (3.5-5.1); Sodium 138 mmol/L (136-145); Total Bilirubin 0.2 mg/dL (0.15-1.2); Total Protein 6.1 g/dL (6.6-8.7)
[2022-04-03] MEDS: famotidine 20 mg/2 mL INJ IVP (10:48)
[2022-04-03] MEDS: OLANZapine 5 mg TABLET PO (10:48)
[2022-04-03] MEDS: diphenhydrAMINE 50 mg/mL SDV 1mL 25 MG IVP (10:49)
[2022-04-03] MEDS: fosaprepitant 150 MG in sodium chloride 0.9% 150 ML 300 MG IV (10:55)
[2022-04-03] MEDS: palonosetron 0.25 mg/5 mL SDV IVP (11:29)
[2022-04-03] MEDS: SODIUM CHLORIDE 0.9% IV (11:54)
[2022-04-03] MEDS: CISPLATIN IV (11:54)
[2022-04-03] MEDS: FUROsemide 10 mg/mL SDV 2mL 20 MG IVP (13:04)
[2022-04-03] MEDS: potassium chloride 20 MEQ in sodium chloride 0.9% 500 ML 500 MEQ IV (13:04)
[2022-04-03 14:25] VITALS: BP 139/81; PULSE 107; TEMP 36.5; O2SAT 97
[2022-04-10 08:23] LABS: Basophils % 0.4 %; Eosinophils # 0.1 10^3/uL (0.0-0.8); Eosinophils % 1.3 %; Hematocrit 30.5 % (42.0-52.0); Hemoglobin 9.7 g/dL (11.7-16.6); Lymphocytes # 0.8 10^3/uL (0.8-4.8); Lymphocytes % 11.4 %; Mean Corpuscular HGB Conc 31.8 g/dL (30.0-36.0); Mean Corpuscular Hemoglobin 28.5 pg (28.0-34.0); Mean Corpuscular Volume 89.7 fl (80-94); Mean Platelet Volume 8.9 fL (7.4-10.4); Monocytes # 0.5 10^3/uL (0.2-0.9); Monocytes % 6.7 %; Neutrophils # 5.64 10^3/uL (1.8-7.7); Neutrophils % 78.7 %; Nucleated Red Blood Cells % 0 %; Platelet Count 239 10^3/cmm (130-400); Red Cell Distribution Width 14.9 % (12.1-15.1); White Blood Count 7.2 10^3/uL (4.0-10.0)
[2022-04-10 08:56] LABS: Alanine Aminotransferase 9 U/L (0-41); Albumin Level 2.7 g/dL (3.5-5.2); Alkaline Phosphatase 120 U/L (40-130); Anion Gap 15.2 (5-19); Aspartate Amino Transferase 11 U/L (0-40); Blood Urea Nitrogen 8 mg/dL (8-23); Calcium 8.5 mg/dL (8.5-10.5); Carbon Dioxide 28 mmol/L (22-29); Chloride 97 mmol/L (98-107); Globulin 3.1 g/dL (1.3-4.6); Glomerular Filtration Rate 166.9 mL/min (90-130); Glucose 122 mg/dL (65-115); Osmolality Calculated 284 mOsm/kg (285-295); Potassium 3.2 mmol/L (3.5-5.1); Sodium 137 mmol/L (136-145); Total Bilirubin 0.2 mg/dL (0.15-1.2); Total Protein 5.8 g/dL (6.6-8.7)
[2022-04-10] MEDS: sodium chloride 0.9% 250 ML IV (11:18)
[2022-04-10] MEDS: famotidine 20 mg/2 mL INJ IVP (11:19)
[2022-04-10] MEDS: diphenhydrAMINE 50 mg/mL SDV 1mL 25 MG IVP (11:19)
[2022-04-10] MEDS: OLANZapine 5 mg TABLET PO (11:20)
[2022-04-10] MEDS: palonosetron 0.25 mg/5 mL SDV IVP (11:25)
[2022-04-10] MEDS: fosaprepitant 150 MG in sodium chloride 0.9% 150 ML 300 MG IV (11:47)
[2022-04-10] MEDS: CISPLATIN IV (12:29)
[2022-04-10] MEDS: SODIUM CHLORIDE 0.9% IV (12:29)
[2022-04-10] MEDS: FUROsemide 10 mg/mL SDV 2mL 20 MG IVP (13:47)
[2022-04-10] MEDS: potassium chloride 20 MEQ in sodium chloride 0.9% 500 ML 500 MEQ IV (13:51)
[2022-04-10 15:12] VITALS: BP 129/84; PULSE 108; TEMP 36.5; O2SAT 99
[2022-04-17 08:26] LABS: Basophils % 0.5 %; Eosinophils # 0.1 10^3/uL (0.0-0.8); Eosinophils % 0.8 %; Hematocrit 31.3 % (42.0-52.0); Lymphocytes % 17.2 %; Mean Corpuscular HGB Conc 31.9 g/dL (30.0-36.0); Mean Corpuscular Hemoglobin 28.3 pg (28.0-34.0); Mean Corpuscular Volume 88.7 fl (80-94); Mean Platelet Volume 9.5 fL (7.4-10.4); Monocytes # 0.6 10^3/uL (0.2-0.9); Monocytes % 9.8 %; Neutrophils # 4.14 10^3/uL (1.8-7.7); Nucleated Red Blood Cells % 0 %; Platelet Count 242 10^3/cmm (130-400); Red Blood Count 3.53 10^6/uL (4.1-5.3); Red Cell Distribution Width 15.6 % (12.1-15.1); White Blood Count 5.9 10^3/uL (4.0-10.0)
[2022-04-17 08:44] LABS: Alanine Aminotransferase 9 U/L (0-41); Albumin Level 2.7 g/dL (3.5-5.2); Alkaline Phosphatase 124 U/L (40-130); Anion Gap 16.1 (5-19); Aspartate Amino Transferase 13 U/L (0-40); Blood Urea Nitrogen 11 mg/dL (8-23); Calcium 8.8 mg/dL (8.5-10.5); Carbon Dioxide 28 mmol/L (22-29); Chloride 97 mmol/L (98-107); Globulin 3.6 g/dL (1.3-4.6); Glomerular Filtration Rate 135.2 mL/min (90-130); Glucose 112 mg/dL (65-115); Osmolality Calculated 284 mOsm/kg (285-295); Potassium 4.1 mmol/L (3.5-5.1); Sodium 137 mmol/L (136-145); Total Bilirubin 0.2 mg/dL (0.15-1.2); Total Protein 6.3 g/dL (6.6-8.7)
[2022-04-17] MEDS: OLANZapine 5 mg TABLET PO (11:02)
[2022-04-17] MEDS: sodium chloride 0.9% 250 ML IV (11:02)
[2022-04-17] MEDS: diphenhydrAMINE 50 mg/mL SDV 1mL 25 MG IVP (11:03)
[2022-04-17] MEDS: famotidine 20 mg/2 mL INJ IVP (11:03)
[2022-04-17] MEDS: palonosetron 0.25 mg/5 mL SDV IVP (11:10)
[2022-04-17] MEDS: fosaprepitant 150 MG in sodium chloride 0.9% 150 ML 300 MG IV (11:30)
[2022-04-17] MEDS: CISPLATIN IV (12:08)
[2022-04-17] MEDS: SODIUM CHLORIDE 0.9% IV (12:08)
[2022-04-17] MEDS: FUROsemide 10 mg/mL SDV 2mL 20 MG IVP (13:21)
[2022-04-17] MEDS: potassium chloride 20 MEQ in sodium chloride 0.9% 500 ML 500 MEQ IV (13:25)
[2022-04-17 15:06] VITALS: BP 125/84; PULSE 106; TEMP 36.7; O2SAT 99
[2022-04-24] MEDS: sodium chloride 0.9% 500 ML 999 ML IV (08:59)
[2022-04-24 09:05] LABS: Basophils % 0.5 %; Eosinophils % 0.8 %; Hematocrit 31.2 % (42.0-52.0); Lymphocytes # 0.5 10^3/uL (0.8-4.8); Lymphocytes % 12.5 %; Mean Corpuscular HGB Conc 32.1 g/dL (30.0-36.0); Mean Corpuscular Hemoglobin 28.4 pg (28.0-34.0); Mean Corpuscular Volume 88.6 fl (80-94); Mean Platelet Volume 9.5 fL (7.4-10.4); Monocytes # 0.6 10^3/uL (0.2-0.9); Monocytes % 14.5 %; Neutrophils # 2.77 10^3/uL (1.8-7.7); Neutrophils % 70.7 %; Nucleated Red Blood Cells % 0 %; Platelet Count 165 10^3/cmm (130-400); Red Blood Count 3.52 10^6/uL (4.1-5.3); Red Cell Distribution Width 16.4 % (12.1-15.1); White Blood Count 3.9 10^3/uL (4.0-10.0)
[2022-04-24 09:25] LABS: Alanine Aminotransferase 7 U/L (0-41); Albumin Level 2.6 g/dL (3.5-5.2); Alkaline Phosphatase 130 U/L (40-130); Anion Gap 15.3 (5-19); Aspartate Amino Transferase 11 U/L (0-40); Blood Urea Nitrogen 14 mg/dL (8-23); Calcium 8.9 mg/dL (8.5-10.5); Carbon Dioxide 25 mmol/L (22-29); Chloride 93 mmol/L (98-107); Globulin 3.7 g/dL (1.3-4.6); Glomerular Filtration Rate 113.2 mL/min (90-130); Glucose 153 mg/dL (65-115); Osmolality Calculated 272 mOsm/kg (285-295); Potassium 4.3 mmol/L (3.5-5.1); Sodium 129 mmol/L (136-145); Total Bilirubin 0.3 mg/dL (0.15-1.2); Total Protein 6.3 g/dL (6.6-8.7)
[2022-04-24 09:51] LABS: Digoxin 0.4 ng/mL (0.6-1.2)
[2022-04-24 10:38] VITALS: BP 111/77; PULSE 129; O2SAT 99
== END 2022-04-24 23:59 | disposition home or self-care (01) ==
PROVIDERS: Internal Medicine Cardiovascular Disease; Internal Medicine Hematology & Oncology; Nurse Practitioner; PCP Family Medicine; Visit Provider Radiology Radiation Oncology
DX: I49.5 Sick sinus syndrome; C09.9 Malignant neoplasm of tonsil, unspecified; I25.10 Atherosclerotic heart disease of native coronary artery without angina pectoris; I10 Essential (primary) hypertension
CPT/HCPCS: 77300; 77336; 77338; 77386; 80053; 80162; 82607; 82728; 83540; 83550; 85025; 96365; 96366; 96367; 96375; 96413; 99214; J1100; J1200; J1453; J1940; J2469; J3475; J3480; J3490; J7030; J7040; J7050; J9060

== ENCOUNTER 2022-05-01 08:02 | Emergency (ER) | payer OTHER, SELFPAY ==
[2022-05-01 08:04] VITALS: BP 91/69; PULSE 130; RESP 20; TEMP 36.4; BMI 21.6
--- NOTE | 2022-05-01 08:14 | W.ED.WEAKNES ---
HPI - Weakness General: Chief complaint: Weakness Stated complaint: Weakness Time Seen by Provider: 05/01/22 08:12 Source: patient and family Mode of arrival: EMS History of Present Illness: 66-year-old male presents emergency room complaining of generalized weakness. 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 He felt very weak today and could not get up his could not get him up so he called EMS. He is scheduled for treatment at the oncology center when he arrived here he basically said he had just intended for ambulance to give him a ride to oncology. He is not hurting anywhere at the moment. He is tachycardic but he tells me that he is constantly that way they recently started him on digoxin to help control his rate although he states it does not seem to be working. He is also on Eliquis. He denies any chest pain. No abdominal pain he previously had a feeding tube but that has been removed. MD Complaint: generalized weakness Onset (ago): week(s) Duration: constant Location: generalized Severity: moderate Relieving factors: none Exacerbating factors: none Associated symptoms: Reports decreased appetite and nausea; Denies chest pain, chills, confusion, melena, diaphoresis, dysuria, easy bruising, fever(s), headache(s), myalgias, short of breath, syncope or vomiting Review of Systems Const: Reports: fatigue and malaise; Denies: fever(s), chills or diaphoresis ENMT: Denies: throat pain, ear or mastoid pain, nasal discharge or nasal congestion Card: Denies: chest pain or syncope Resp: Denies: dyspnea, productive cough or non-productive cough GI: Reports: nausea; Denies: abdominal pain, vomiting or melena : Denies: dysuria Skin/Breast: Denies: rash or pruritus Neuro: Denies: headache(s) or confusion Paco/Lymph: Denies: easy bruising PFSH ED PFSH: Medical History Acute exacerbation of chronic obstructive pulmonary disease Cellulitis COPD (chronic obstructive pulmonary disease) Coronary artery disease Diabetes mellitus Hyperlipidemia Hypertension GIDEON (obstructive sleep apnea) Presence of other vascular implants and grafts PowerPort left subclavian Dr. Mead 03/07/2022 Squamous cell carcinoma of right tonsil Stroke Throat cancer Surgical History History of heart artery stent 1996 History of surgery on arm History of surgery on lower extremity Family History Mother Cancer lung Father Stroke Sister Cancer lung Other Bleeding disorder Clotting disorder Diabetes Hyperlipidemia Social History Smoking and tobacco status: current every day smoker (1 ppd, smoked since 1971) cigarettes Packs smoked per day: 1.5 Alcohol intake: never Lives independently: Yes Household members: family Physical Exam Const: COMMON NORMALS: no acute distress GENERAL APPEARANCE: cooperative and comfortable ORIENTATION/CONSCIOUSNESS: Yes awake, Yes oriented to person, Yes oriented to place and Yes oriented to time HENMT: COMMON NORMALS: normocephalic, atraumatic and hearing grossly normal bilaterally HEAD & SCALP: normocephalic and atraumatic Resp: COMMON NORMALS: normal respiratory effort, No retractions, No use of accessory muscles and clear to auscultation bilaterally AUSCULTATION: clear to auscultation bilaterally Cardio: COMMON NORMALS: regular rhythm and No murmurs present (Cardio) RATE: tachycardic RHYTHM: regular rhythm GI: COMMON NORMALS: Soft to palpation and No hepatosplenomegaly present AUSCULTATION: Yes normoactive bowel sounds PALPATION: Yes Soft to palpation, No Tenderness to palpation present (GI), No Guarding due to palpation present (GI) and Yes No hepatosplenomegaly present Extremity: COMMON NORMALS: normal to inspection, capillary refill normal, no clubbing, cyanosis or edema, no calf tenderness and no pedal edema Neuro: SENSORIUM/ORIENTATION: Yes oriented to person, Yes oriented to place and Yes oriented to time Skin: COMMON NORMALS: no rashes or lesions noted GENERAL SKIN EXAM: no rashes or lesions noted Course Vital Signs: Vital signs: Vital Signs Temperature 97.5 F L 05/01/22 08:04 Pulse Rate 110 H 05/01/22 09:15 Respiratory Rate 16 05/01/22 09:15 Blood Pressure 97/60 05/01/22 09:15 Pulse Oximetry 94 05/01/22 09:15 Oxygen Delivery Tx thod 05/01/22 09:15 MDM - Weakness Medical Decision Making Labs reviewed. Discussed with the patient he had anticipated just going straight to the oncology floor. We called and Talked to oncology was they asked that we get the lab work on him initially and then discharge him to oncology or get his treatment today we also started a liter of fluids he was discharged with a liter of fluids running staff will bring him to the oncology unit where they will provide further care including his chemotherapy today. Later on reviewed the labs found he had significant hyperkalemia this was going to be addressed by the oncology department while he was in the infusion center. Medical Records I reviewed the patient's medical records. Lab Data I reviewed the patient's lab results. : 05/01/22 08:50 05/01/22 08:50 Laboratory Results WBC 6.4 10^3/uL (4.0-10.0) 05/01/22 08:50 RBC 3.26 10^6/uL (4.1-5.3) L 05/01/22 08:50 Hgb 9.4 g/dL (11.7-16.6) L 05/01/22 08:50 Hct 30.0 % (42.0-52.0) L 05/01/22 08:50 MCV 92.0 fl (80-94) 05/01/22 08:50 MCH 28.8 pg (28.0-34.0) 05/01/22 08:50 MCHC 31.3 g/dL (30.0-36.0) 05/01/22 08:50 RDW 17.5 % (12.1-15.1) H 05/01/22 08:50 Plt Count 217 10^3/cmm (130-400) 05/01/22 08:50 MPV 9.6 fL (7.4-10.4) 05/01/22 08:50 Neut % (Auto) 75.0 % 05/01/22 08:50 Lymph % (Auto) 9.6 % 05/01/22 08:50 [place] % (Auto) 12.6 % 05/01/22 08:50 Eos % (Auto) 0.0 % 05/01/22 08:50 Baso % (Auto) 0.3 % 05/01/22 08:50 Neut # (Auto) 4.77 10^3/uL (1.8-7.7) 05/01/22 08:50 Lymph # (Auto) 0.6 10^3/uL (0.8-4.8) L 05/01/22 08:50 [place] # (Auto) 0.8 10^3/uL (0.2-0.9) 05/01/22 08:50 Eos # (Auto) 0.0 10^3/uL (0.0-0.8) 05/01/22 08:50 Baso # (Auto) 0.0 10^3/uL (0.0-0.1) 05/01/22 08:50 Nucleated RBC % (auto) 0.3 % 05/01/22 08:50 Nucleated RBCs # 0.0 /100WBC 05/01/22 08:50 Sodium 137 mmol/L (136-145) 05/01/22 08:50 Potassium 5.7 mmol/L (3.5-5.1) H 05/01/22 08:50 Chloride 101 mmol/L (98-107) 05/01/22 08:50 Carbon Dioxide 25 mmol/L (22-29) 05/01/22 08:50 Anion Gap 16.7 (5-19) 05/01/22 08:50 BUN 34 mg/dL (8-23) H 05/01/22 08:50 Creatinine 1.0 mg/dL (0.7-1.2) 05/01/22 08:50 GFR Calculation 75.0 mL/min (90-130) L 05/01/22 08:50 Glucose 135 mg/dL (65-115) H 05/01/22 08:50 Calculated Osmolality 294 mOsm/kg (285-295) 05/01/22 08:50 Calcium 9.9 mg/dL (8.5-10.5) 05/01/22 08:50 Total Bilirubin 0.2 mg/dL (0.15-1.2) 05/01/22 08:50 AST 17 U/L (0-40) 05/01/22 08:50 ALT 8 U/L (0-41) 05/01/22 08:50 Alkaline Phosphatase 123 U/L (40-130) 05/01/22 08:50 Total Protein 6.6 g/dL (6.6-8.7) 05/01/22 08:50 Albumin 2.7 g/dL (3.5-5.2) L 05/01/22 08:50 Globulin 3.9 g/dL (1.3-4.6) 05/01/22 08:50 PSA Screen 3.15 ng/mL (0-4) 05/01/22 08:50 Digoxin 1.8 ng/mL (0.6-1.2) H 05/01/22 08:50 Discharge Plan Discharge Patient Disposition: Home Clinical Impression: Weakness, Diabetes mellitus, Squamous cell carcinoma of right tonsil, Hyperkalemia Condition: Stable Prescriptions: No Action potassium chloride 20 mEq tablet extended release 20 meq PO DAILY Qty: 30 3RF prochlorperazine maleate [Compazine] 10 mg tablet 10 mg PO Q6H PRN (Reason: nausea and vomiting) Qty: 30 5RF lorazepam 0.5 mg tablet 0.5 mg PO TID PRN (Reason: nausea and vomiting) Qty: 30 1RF Rx Instructions: for SEVERE NAUSEA/VOMITING, anxiety and or insomnia Lidocaine Viscous 2 % solution 5 ml mucous membrane Q6H PRN (Reason: Pain) Qty: 100 0RF oxycodone-acetaminophen [Percocet] 5-325 mg tablet 1 - 2 tab PO .q4-6hr PRN (Reason: pain) 30 Days Qty: 60 0RF digoxin 125 mcg (0.125 mg) tablet 250 mcg PO DAILY Qty: 30 6RF oxycodone 5 mg/5 mL solution 5 mg PO .q4-6h PRN (Reason: pain) 14 Days Qty: 250 0RF albuterol sulfate 90 mcg/actuation HFA aerosol inhaler 2 inh INHALATION Q4H PRN (Reason: shortness of breath or wheezing) Qty: 18 0RF acetaminophen 500 mg Tablet 1,000 mg PO BID albuterol sulfate 2.5 mg /3 mL (0.083 %) Solution For Nebulization 2.5 mg INHALATION Q6H PRN (Reason: Shortness Of Breath) aspirin 81 mg Tablet,Delayed Release (Dr/Ec) 81 mg PO QAM Vitamin D3 25 mcg (1,000 unit) Tablet 25 mcg PO QPM cyanocobalamin (vitamin B-12) [Vitamin B-12] 1,000 mcg Tablet 1,000 mcg PO QAM metformin 1,000 mg Tablet 500 mg PO QAM rosuvastatin [Crestor] 20 mg Tablet 10 mg PO QAM Eliquis 5 mg Tablet 5 mg PO BID Hold Instructions: Resume on 03/11/22. Spiriva Respimat 2.5 mcg/actuation Mist 2 inh INHALATION QAM mometasone-formoterol 200-5 mcg/actuation Hfa Aerosol Inhaler 2 puff INHALATION BID polyethylene glycol 3350 [Miralax] 17 gram Powder In Packet 17 g PO DAILY PRN (Reason: Constipation) Discharge Orders: Discharge ED (Routine); Ordered 05/01/22 Ordered By: Roberto Mccauley Referrals: Katrina Gaytan MD [Primary Care Provider] - Discharge Diet: Advance as tolerated Discharge Activity: Increase activity as tolerated Patient Instructions: Opioid Safety, Pain Management Activity Restrictions/Additional Instructions: Staff will take it from the emergency room to the cancer center. They will review your labs with you and give you further fluids and other treatments as indicated. Coding Level of Care Code ED Snuff Grinder And Screener for Bernice Fwd Exam Detailed
[2022-05-01] MEDS: sodium chloride 0.9% 1,000 ML 999 ML IV (09:01)
[2022-05-01 09:05] LABS: Basophils % 0.3 %; Hemoglobin 9.4 g/dL (11.7-16.6); Lymphocytes # 0.6 10^3/uL (0.8-4.8); Lymphocytes % 9.6 %; Mean Corpuscular HGB Conc 31.3 g/dL (30.0-36.0); Mean Corpuscular Hemoglobin 28.8 pg (28.0-34.0); Mean Platelet Volume 9.6 fL (7.4-10.4); Monocytes # 0.8 10^3/uL (0.2-0.9); Monocytes % 12.6 %; Neutrophils # 4.77 10^3/uL (1.8-7.7); Nucleated Red Blood Cells % 0.3 %; Platelet Count 217 10^3/cmm (130-400); Red Blood Count 3.26 10^6/uL (4.1-5.3); Red Cell Distribution Width 17.5 % (12.1-15.1); White Blood Count 6.4 10^3/uL (4.0-10.0)
[2022-05-01 09:15] VITALS: BP 97/60; PULSE 110; RESP 16; O2SAT 94
[2022-05-01 09:39] LABS: Digoxin 1.8 ng/mL (0.6-1.2)
[2022-05-01 09:57] LABS: Alanine Aminotransferase 8 U/L (0-41); Albumin Level 2.7 g/dL (3.5-5.2); Alkaline Phosphatase 123 U/L (40-130); Anion Gap 16.7 (5-19); Aspartate Amino Transferase 17 U/L (0-40); Blood Urea Nitrogen 34 mg/dL (8-23); Calcium 9.9 mg/dL (8.5-10.5); Carbon Dioxide 25 mmol/L (22-29); Chloride 101 mmol/L (98-107); Globulin 3.9 g/dL (1.3-4.6); Glucose 135 mg/dL (65-115); Osmolality Calculated 294 mOsm/kg (285-295); Potassium 5.7 mmol/L (3.5-5.1); Sodium 137 mmol/L (136-145); Total Bilirubin 0.2 mg/dL (0.15-1.2); Total Protein 6.6 g/dL (6.6-8.7)
[2022-05-01 12:15] LABS: PSA Screen - Urology 3.15 ng/mL (0-4)
== END 2022-05-01 09:21 | disposition home or self-care (01) ==
PROVIDERS: Urology; Emergency Provider Family Medicine; PCP Family Medicine
DX: R53.1 Weakness (principal); E11.9 Type 2 diabetes mellitus without complications; C09.9 Malignant neoplasm of tonsil, unspecified; F17.210 Nicotine dependence, cigarettes, uncomplicated; E87.5 Hyperkalemia; Z79.899 Other long term (current) drug therapy
CPT/HCPCS: 80053; 80162; 85025; 96360; 99284; G0103; J7030

== ENCOUNTER → 2022-05-08 08:00 | Outpatient (BNVA) | payer OTHER, MEDICARE, SELFPAY | PROVIDERS: PCP Family Medicine; Visit Provider Internal Medicine Hematology & Oncology | DX: C09.8 Malignant neoplasm of overlapping sites of tonsil (principal) | CPT/HCPCS: 99214 ==

== ENCOUNTER 2022-05-20 08:13 | Emergency (ER) | payer OTHER, SELFPAY ==
[2022-05-20 08:18] VITALS: BP 77/59; PULSE 136; RESP 18; TEMP 36.1; O2SAT 98; BMI 21.4
--- NOTE | 2022-05-20 08:24 | ECG_ITS ---
[facility] Test Date: 2022-05-20 Pat Name: Chacorta Siegel Department: Room: Gender: Male See Wheeler: : 1955 Requested By: Roberto Alvarez Order Number: [id number] Jannie MD: Livan Napier M.D. Measurements Intervals [place] Rate: 135 P: 83 SC: 152 QRS: 107 QRSD: 78 T: 62 QT: 275 QTc: 413 Interpretive Statements SINUS TACHYCARDIA POSSIBLE RIGHT VENTRICULAR HYPERTROPHY [SOME/ALL OF: PROMINENT R IN V1, LATE TRANSITION, RAD, TORI, SSS] SEPTAL MYOCARDIAL INFARCTION , PROBABLY OLD [40+ ms Q WAVE IN V1/V2] Compared to ECG 02/21/2022 05:21:58 No significant changes Electronically Signed On 05-20-2022 11:03:28 MONITOR TECH by Livan Napier M.D. [id number]
[2022-05-20 08:40] VITALS: BP 77/59; PULSE 136; RESP 18; TEMP 36.1; O2SAT 98
[2022-05-20] MEDS: sodium chloride 0.9% 1,000 ML 999 ML IV ×2 (08:44→09:58)
[2022-05-20] MEDS: dexamethasone 10 mg/mL INJ IVP (08:44)
[2022-05-20 08:56] LABS: Basophils % 0.4 %; Eosinophils % 0.2 %; Hematocrit 35.7 % (42.0-52.0); Hemoglobin 11.3 g/dL (11.7-16.6); Lymphocytes # 0.9 10^3/uL (0.8-4.8); Mean Corpuscular HGB Conc 31.7 g/dL (30.0-36.0); Mean Corpuscular Hemoglobin 29.6 pg (28.0-34.0); Mean Corpuscular Volume 93.5 fl (80-94); Mean Platelet Volume 8.9 fL (7.4-10.4); Monocytes # 0.6 10^3/uL (0.2-0.9); Monocytes % 6.7 %; Neutrophils # 7.54 10^3/uL (1.8-7.7); Neutrophils % 80.9 %; Nucleated Red Blood Cells % 0 %; Platelet Count 294 10^3/cmm (130-400); Red Blood Count 3.82 10^6/uL (4.1-5.3); Red Cell Distribution Width 20.5 % (12.1-15.1); White Blood Count 9.3 10^3/uL (4.0-10.0)
[2022-05-20] MEDS: alteplase 1 mg/mL SDV 2 mL 2 MG INTRACATH (09:05)
--- NOTE | 2022-05-20 09:12 | W.ED.WEAKNES ---
HPI - Weakness General: Chief complaint: Weakness Stated complaint: blood pressure low and weakness Time Seen by Provider: 05/20/22 08:14 Source: patient Mode of arrival: ambulatory History of Present Illness: 66-year-old male presents emergency room with hypotension generally feeling weak. Patient has oropharyngeal cancer. He has been receiving radiation his last treatment was 3 days ago. He has 1 more left. He has completed chemotherapy this morning he just generally did not feel good they took his blood pressure at home and it was low talk to Dr. Nair advised him to present here. He denies any abdominal pain or chest pain no shortness of breath no recent fever sweats chills cough cold or congestion. MD Complaint: generalized weakness Onset (ago): hour(s) Duration: constant Location: generalized Relieving factors: none Exacerbating factors: none Associated symptoms: Reports decreased appetite; Denies chest pain, chills, confusion, melena, diaphoresis, dysuria, easy bruising, fever(s), headache(s), myalgias, nausea, rash, short of breath, syncope or vomiting Review of Systems Const: Reports: fatigue and malaise; Denies: fever(s), chills or diaphoresis ENMT: Denies: throat pain, ear or mastoid pain, nasal discharge or nasal congestion Card: Denies: chest pain or syncope Resp: Denies: dyspnea, productive cough or non-productive cough GI: Denies: abdominal pain, nausea, vomiting or melena : Denies: difficulty urinating, dysuria, urinary frequency or urinary urgency Skin/Breast: Denies: rash or pruritus Neuro: Denies: headache(s) or confusion Paco/Lymph: Denies: easy bruising PFS ED PFSH: Medical History Acute exacerbation of chronic obstructive pulmonary disease Cellulitis COPD (chronic obstructive pulmonary disease) Coronary artery disease Diabetes mellitus Hyperlipidemia Hypertension GIDEON (obstructive sleep apnea) Presence of other vascular implants and grafts PowerPort left subclavian Dr. Mead 03/07/2022 Squamous cell carcinoma of right tonsil Stroke Throat cancer Surgical History History of heart artery stent 1996 History of surgery on arm History of surgery on lower extremity Family History Mother Cancer lung Father Stroke Sister Cancer lung Other Bleeding disorder Clotting disorder Diabetes Hyperlipidemia Social History Smoking and tobacco status: current every day smoker (1 ppd, smoked since 1971) cigarettes Packs smoked per day: 1.5 Alcohol intake: never Lives independently: Yes Household members: family Marital status: Current occupational status: retired History of recent travel: No Physical Exam Const: COMMON NORMALS: no acute distress GENERAL APPEARANCE: cooperative and comfortable ORIENTATION/CONSCIOUSNESS: Yes awake, Yes oriented to person, Yes oriented to place and Yes oriented to time HENMT: COMMON NORMALS: normocephalic, atraumatic and hearing grossly normal bilaterally HEAD & SCALP: normocephalic and atraumatic Resp: COMMON NORMALS: normal respiratory effort, No retractions, No use of accessory muscles and clear to auscultation bilaterally AUSCULTATION: clear to auscultation bilaterally Cardio: COMMON NORMALS: regular rate, regular rhythm and No murmurs present (Cardio) RATE: regular rate RHYTHM: regular rhythm GI: COMMON NORMALS: Soft to palpation and No hepatosplenomegaly present AUSCULTATION: Yes normoactive bowel sounds PALPATION: Yes Soft to palpation, No Tenderness to palpation present (GI), No Guarding due to palpation present (GI) and Yes No hepatosplenomegaly present Extremity: COMMON NORMALS: normal to inspection, capillary refill normal, no clubbing, cyanosis or edema, no calf tenderness and no pedal edema Neuro: SENSORIUM/ORIENTATION: Yes oriented to person, Yes oriented to place and Yes oriented to time Skin: COMMON NORMALS: no rashes or lesions noted GENERAL SKIN EXAM: no rashes or lesions noted Course Vital Signs: Vital signs: Vital Signs Temperature 97 F L 05/20/22 08:40 Pulse Rate 96 05/20/22 11:56 Respiratory Rate 18 05/20/22 08:40 Blood Pressure 115/68 05/20/22 11:56 Pulse Oximetry 90 05/20/22 11:56 Oxygen Delivery Me thod 05/20/22 09:37 MDM - Weakness Medical Decision Making Pressure improved after fluids patient is feeling much better. We will go ahead and discharge patient home. He has antiemetics to use at home he also has pain medications continue his current medications. His dig level slightly high should be corrected by the fluids given. Follow-up with his primary care doctor next week. Medical Records I reviewed the patient's medical records. Lab Data I reviewed the patient's lab results. 05/20/22 08:38 05/20/22 08:38 Laboratory Results WBC 9.3 10^3/uL (4.0-10.0) 05/20/22 08:38 RBC 3.82 10^6/uL (4.1-5.3) L 05/20/22 08:38 Hgb 11.3 g/dL (11.7-16.6) L 05/20/22 08:38 Hct 35.7 % (42.0-52.0) L 05/20/22 08:38 MCV 93.5 fl (80-94) 05/20/22 08:38 MCH 29.6 pg (28.0-34.0) 05/20/22 08:38 MCHC 31.7 g/dL (30.0-36.0) 05/20/22 08:38 RDW 20.5 % (12.1-15.1) H 05/20/22 08:38 Plt Count 294 10^3/cmm (130-400) 05/20/22 08:38 MPV 8.9 fL (7.4-10.4) 05/20/22 08:38 Neut % (Auto) 80.9 % 05/20/22 08:38 Lymph % (Auto) 10.0 % 05/20/22 08:38 [place] % (Auto) 6.7 % 05/20/22 08:38 Eos % (Auto) 0.2 % 05/20/22 08:38 Baso % (Auto) 0.4 % 05/20/22 08:38 Neut # (Auto) 7.54 10^3/uL (1.8-7.7) 05/20/22 08:38 Lymph # (Auto) 0.9 10^3/uL (0.8-4.8) 05/20/22 08:38 [place] # (Auto) 0.6 10^3/uL (0.2-0.9) 05/20/22 08:38 Eos # (Auto) 0.0 10^3/uL (0.0-0.8) 05/20/22 08:38 Baso # (Auto) 0.0 10^3/uL (0.0-0.1) 05/20/22 08:38 Nucleated RBC % (auto) 0 % 05/20/22 08:38 Nucleated RBCs # 0.0 /100WBC 05/20/22 08:38 Sodium 136 mmol/L (136-145) 05/20/22 08:38 Potassium 3.4 mmol/L (3.5-5.1) L 05/20/22 08:38 Chloride 95 mmol/L (98-107) L 05/20/22 08:38 Carbon Dioxide 25 mmol/L (22-29) 05/20/22 08:38 Anion Gap 19.4 (5-19) H 05/20/22 08:38 BUN 14 mg/dL (8-23) 05/20/22 08:38 Creatinine 0.8 mg/dL (0.7-1.2) 05/20/22 08:38 GFR Calculation 97.0 mL/min (90-130) 05/20/22 08:38 Glucose 124 mg/dL (65-115) H 05/20/22 08:38 Calculated Osmolality 284 mOsm/kg (285-295) L 05/20/22 08:38 Calcium 8.8 mg/dL (8.5-10.5) 05/20/22 08:38 Digoxin 1.3 ng/mL (0.6-1.2) H 05/20/22 08:38 Discharge Plan Discharge Patient Disposition: Home Clinical Impression: Dehydration, Squamous cell carcinoma of right tonsil Condition: Stable Prescriptions: No Action prochlorperazine maleate [Compazine] 10 mg tablet 10 mg PO Q6H PRN (Reason: nausea and vomiting) Qty: 30 5RF lorazepam 0.5 mg tablet 0.5 mg PO TID PRN (Reason: nausea and vomiting) Qty: 30 1RF Rx Instructions: for SEVERE NAUSEA/VOMITING, anxiety and or insomnia digoxin 125 mcg (0.125 mg) tablet 375 mcg PO DIRECTED Rx Instructions: 05/08/22 (Dose change) Alternate with 250mcg every other day oxycodone 5 mg/5 mL solution 5 mg PO .q4-6h PRN (Reason: pain) 14 Days Qty: 250 0RF Lidocaine Viscous 2 % solution 5 ml mucous membrane Q6H PRN (Reason: Pain) Qty: 100 0RF oxycodone-acetaminophen [Percocet] 5-325 mg tablet 1 - 2 tab PO .q4-6hr PRN (Reason: pain) 30 Days Qty: 60 0RF digoxin [Digox] 250 mcg (0.25 mg) tablet 250 mcg PO DAILY Qty: 90 2RF Rx Instructions: 05/08/22 (Dose change) Alternate with 125mg every other day. albuterol sulfate 90 mcg/actuation HFA aerosol inhaler 2 inh INHALATION Q4H PRN (Reason: shortness of breath or wheezing) Qty: 18 0RF acetaminophen 500 mg Tablet 1,000 mg PO BID albuterol sulfate 2.5 mg /3 mL (0.083 %) Solution For Nebulization 2.5 mg INHALATION Q6H PRN (Reason: Shortness Of Breath) aspirin 81 mg Tablet,Delayed Release (Dr/Ec) 81 mg PO QAM Vitamin D3 25 mcg (1,000 unit) Tablet 25 mcg PO QPM cyanocobalamin (vitamin B-12) [Vitamin B-12] 1,000 mcg Tablet 1,000 mcg PO QAM metformin 1,000 mg Tablet 500 mg PO QAM rosuvastatin [Crestor] 20 mg Tablet 10 mg PO QAM Eliquis 5 mg Tablet 5 mg PO BID Hold Instructions: Resume on 03/11/22. Spiriva Respimat 2.5 mcg/actuation Mist 2 inh INHALATION QAM mometasone-formoterol 200-5 mcg/actuation Hfa Aerosol Inhaler 2 puff INHALATION BID polyethylene glycol 3350 [Miralax] 17 gram Powder In Packet 17 g PO DAILY PRN (Reason: Constipation) Discharge Orders: Discharge ED (Routine); Ordered 05/20/22 Ordered By: Roberto Mccauley Referrals: Katrina Gaytan MD [Primary Care Provider] - Discharge Diet: Usual diet Discharge Activity: Increase activity as tolerated Patient Instructions: Opioid Safety, Pain Management Activity Restrictions/Additional Instructions: You were seen for dehydrationa nd low blood pressure. These improved with fluids. Push oral fluids at home and recheck with your oncology team next week. Coding Level of Care Code ED Director Medical Safety for Chg Fwd Exam Detailed
[2022-05-20 09:16] LABS: Anion Gap 19.4 (5-19); Blood Urea Nitrogen 14 mg/dL (8-23); Calcium 8.8 mg/dL (8.5-10.5); Carbon Dioxide 25 mmol/L (22-29); Chloride 95 mmol/L (98-107); Creatinine Clr Calc Pharmacy 78.5224; Digoxin 1.3 ng/mL (0.6-1.2); Glucose 124 mg/dL (65-115); Osmolality Calculated 284 mOsm/kg (285-295); Potassium 3.4 mmol/L (3.5-5.1); Sodium 136 mmol/L (136-145)
[2022-05-20 09:37] VITALS: BP 120/62; PULSE 99; O2SAT 93
[2022-05-20 11:56] VITALS: BP 115/68; PULSE 96; O2SAT 90
== END 2022-05-20 11:55 | disposition home or self-care (01) ==
PROVIDERS: Emergency Provider Family Medicine; PCP Family Medicine
DX: E86.0 Dehydration (principal); C09.9 Malignant neoplasm of tonsil, unspecified
CPT/HCPCS: 80048; 80162; 85025; 93005; 96361; 96374; 99284; J1100; J2997; J7030

== ENCOUNTER 2022-05-24 08:05 | Oncology outpatient (recurring) (ONCR) | payer OTHER, MEDICARE, SELFPAY ==
--- NOTE | 2022-05-01 09:57 | ONCRAD TMN_ITS ---
Radiation Oncology Treatment Management Note Patient Name: Chacorta Siegel Date of : 1955 Date of Service: 05/01/2022 Attending Physician: Rahat Parham M.D. 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 The patient was evaluated at the [facility] Department in December for odynophagia. A CT scan of the neck ordered on December 27, 2021 demonstrated irregular fluid collections within the bilateral sienna-tonsillar tissues measuring 4.1 cm x 2.4 cm x 2 cm and bilateral enhancing cervical lymphadenopathy. He was transferred to the [facility] in [place], [place] for further management. A flexible laryngoscopy was performed by the on-call astronautical engineer. Significant findings included enlargement of the right tonsil with exudate. 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 A repeat neck CT scan described irregular mucosal thickening and enhancement of the oropharyngeal and hypopharyngeal mucosa involving the tonsils, glossotonsillar pillars, base of tongue, and inferior soft palate. Also reported were bilateral cervical lymphadenopathy within level II and level III lymph node stations. He was discharged with referral for definitive management. PET imaging obtained on February 07, 2022 confirmed hypermetabolic activity within the oropharyngeal mass and bilateral cervical levels II and III. Combined modality treatment was recommended. The patient has received 50 Gy of a prescribed 70 [place] with an intensity modulated radiotherapy plan utilizing a step and shoot treatment technique. He has been prescribed cisplatin (40 mg/m2) weekly during radiotherapy. Upon review of systems, he denied any new complaints. On physical examination, the patient weighed 139 lbs. His temperature was 96.6 ???F and the blood pressure was 98/69 mmHg. His pulse was 124 bpm and the respiratory rate was 16. There was a grade II dermatitis in the left lower neck. Radiotherapy will be postponed. I refilled the Oxycodone elixir prescription. Signed by: Dr. Rahat Parham 05/01/2022 9:55:39 AM
[2022-05-08 08:39] LABS: Basophils % 0.4 %; Eosinophils # 0.1 10^3/uL (0.0-0.8); Eosinophils % 0.6 %; Hematocrit 30.8 % (42.0-52.0); Hemoglobin 9.5 g/dL (11.7-16.6); Lymphocytes # 1.3 10^3/uL (0.8-4.8); Lymphocytes % 15.3 %; Mean Corpuscular HGB Conc 30.8 g/dL (30.0-36.0); Mean Corpuscular Hemoglobin 28.4 pg (28.0-34.0); Mean Corpuscular Volume 91.9 fl (80-94); Mean Platelet Volume 9.4 fL (7.4-10.4); Monocytes # 0.8 10^3/uL (0.2-0.9); Neutrophils % 71.1 %; Nucleated Red Blood Cells % 0 %; Platelet Count 482 10^3/cmm (130-400); Red Blood Count 3.35 10^6/uL (4.1-5.3); Red Cell Distribution Width 19.2 % (12.1-15.1); White Blood Count 8.4 10^3/uL (4.0-10.0)
[2022-05-08 08:57] LABS: Alanine Aminotransferase 8 U/L (0-41); Albumin Level 2.6 g/dL (3.5-5.2); Alkaline Phosphatase 137 U/L (40-130); Anion Gap 11.8 (5-19); Aspartate Amino Transferase 13 U/L (0-40); Blood Urea Nitrogen 21 mg/dL (8-23); Carbon Dioxide 27 mmol/L (22-29); Chloride 91 mmol/L (98-107); Globulin 3.8 g/dL (1.3-4.6); Glomerular Filtration Rate 113.2 mL/min (90-130); Glucose 151 mg/dL (65-115); Osmolality Calculated 268 mOsm/kg (285-295); Potassium 3.8 mmol/L (3.5-5.1); Sodium 126 mmol/L (136-145); Total Bilirubin 0.2 mg/dL (0.15-1.2); Total Protein 6.4 g/dL (6.6-8.7)
[2022-05-09] MEDS: OLANZapine 5 mg TABLET PO (10:03)
[2022-05-09] MEDS: sodium chloride 0.9% 250 ML 100 ML IV (10:17)
[2022-05-09] MEDS: diphenhydrAMINE 50 mg/mL SDV 1mL 25 MG IVP (10:19)
[2022-05-09] MEDS: famotidine 20 mg/2 mL INJ IVP (10:20)
[2022-05-09] MEDS: fosaprepitant 150 MG in sodium chloride 0.9% 150 ML 300 MG IV (10:23)
[2022-05-09] MEDS: palonosetron 0.25 mg/5 mL SDV IVP (11:05)
[2022-05-09] MEDS: FUROsemide 10 mg/mL SDV 2mL 20 MG IVP (12:36)
[2022-05-09] MEDS: potassium chloride 20 MEQ in sodium chloride 0.9% 500 ML 500 MEQ IV (12:38)
[2022-05-09 14:03] VITALS: BP 115/89; PULSE 96; TEMP 36; O2SAT 99
[2022-05-15 14:52] LABS: Basophils % 0.6 %; Eosinophils % 0.6 %; Hematocrit 29.2 % (42.0-52.0); Hemoglobin 9.2 g/dL (11.7-16.6); Mean Corpuscular HGB Conc 31.5 g/dL (30.0-36.0); Mean Corpuscular Hemoglobin 29.1 pg (28.0-34.0); Mean Corpuscular Volume 92.4 fl (80-94); Monocytes # 0.9 10^3/uL (0.2-0.9); Monocytes % 13.2 %; Neutrophils # 4.62 10^3/uL (1.8-7.7); Neutrophils % 68.7 %; Nucleated Red Blood Cells % 0 %; Platelet Count 325 10^3/cmm (130-400); Red Blood Count 3.16 10^6/uL (4.1-5.3); Red Cell Distribution Width 19.3 % (12.1-15.1); White Blood Count 6.7 10^3/uL (4.0-10.0)
[2022-05-15 15:09] LABS: Alanine Aminotransferase 8 U/L (0-41); Albumin Level 2.3 g/dL (3.5-5.2); Alkaline Phosphatase 152 U/L (40-130); Anion Gap 17.8 (5-19); Aspartate Amino Transferase 13 U/L (0-40); Blood Urea Nitrogen 14 mg/dL (8-23); Calcium 8.5 mg/dL (8.5-10.5); Carbon Dioxide 24 mmol/L (22-29); Chloride 96 mmol/L (98-107); Globulin 3.6 g/dL (1.3-4.6); Glomerular Filtration Rate 135.2 mL/min (90-130); Glucose 134 mg/dL (65-115); Osmolality Calculated 280 mOsm/kg (285-295); Potassium 3.8 mmol/L (3.5-5.1); Sodium 134 mmol/L (136-145); Total Bilirubin 0.3 mg/dL (0.15-1.2); Total Protein 5.9 g/dL (6.6-8.7)
--- NOTE | 2022-05-16 10:08 | ONCRAD TMN_ITS ---
Radiation Oncology Weekly Treatment Management Patient: Robbin Grayson MR#: [id number] : 1955> Attending Physician: Dr. Ozzy Lawrence Date of Service: 05/16/2022 Referring Physician(s) : Diagnosis: C09.1 - Malignant neoplasm of tonsillar pillar (anterior) (posterior), Diagnosed 12/2021 (Active) Stage III, T4a, N2c, M0, p16+ Radiotherapy to date: Course: Tonsil 2021, Treatment Site: Tonsil Ca ??? Initial, Ref. ID: [id number], Energy: 6X, Dose/Fx (cGy): 200, #Fx: 25 / 25, Dose Correction (cGy): 0, Total Dose (cGy): 5,000, Start Date: 03/13/2022, End Date: 04/21/2022, Elapsed Days: 39 Treatment Site: Head & Neck ??? Boost, Ref. ID: [id number], Energy: 6X, Dose/Fx (cGy): 200, #Fx: 6 / 10, Dose Correction (cGy): 0, Total Dose (cGy): 1,200, Start Date: 05/09/2022, End Date: 05/16/2022, Elapsed Days: 7 Reason for visit: The patient is being seen today as part of their regularly scheduled weekly on treatment visits to assess for acute toxicities from radiotherapy. Review of Systems: Mr. Gerber has 4 treatments to go. He was placed on break recently for a week and his symptoms significantly improved. At this time he is eating well but has moderate (5/10) pain with swallowing. He is using liquid oxycodone with benefit. He takes it about 1 hour before he eats. He also is experiencing altered taste and dry mouth. He is not having any unusual symptoms. Vital Signs: Performed on 05/16/2022 8:20 AM BMI - 21.6 kg/m2, Height - 65 in, Weight - 129.8 lbs, Temperature - 96.4 f, Pulse - 127 /min (high), Respiration - 18 /min, O2 Sat - 100 %, Pain - 0, Fatigue - 4 and BP - 100/ 69 mm(hg). Physical Exam: Skin of the neck looks excellent. No lymphadenopathy palpated. In the oral cavity no evidence of gross disease. He has moderate mucositis. No yeast or viral ulcerations seen. Imaging: Radiation therapy imaging related to accurate target localization (i.e. KV, MV and CBCT) was reviewed. Appropriate changes, if any, were made to ensure treatment accuracy. Plan: Continue treatment per plan. Refill liquid oxycodone. Discussed the resolution of side effects: Pain improvement over a few weeks, altered taste improvement over several months, and dry mouth improvement over 2 to 3 years. Signed by: Dr. Billy Lawrence 05/16/2022 10:06:05 AM
--- NOTE | 2022-05-22 09:11 | ONCRAD TMN_ITS ---
Radiation Oncology Treatment Management Note Patient Name: Chacorta Siegel Date of : 1955 Date of Service: 05/22/2022 Attending Physician: Rahat Parham M.D. 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 The patient was evaluated at the [facility]'s Emergency Department in December for odynophagia. A CT scan of the neck ordered on December 27, 2021 demonstrated irregular fluid collections within the bilateral sienna-tonsillar tissues measuring 4.1 cm x 2.4 cm x 2 cm and bilateral enhancing cervical lymphadenopathy. He was transferred to the [facility] in [place], [place] for further management. A flexible laryngoscopy was performed by the on-call gas desulfurizer. Significant findings included enlargement of the right tonsil with exudate. 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 A repeat neck CT scan described irregular mucosal thickening and enhancement of the oropharyngeal and hypopharyngeal mucosa involving the tonsils, glossotonsillar pillars, base of tongue, and inferior soft palate. Also reported were bilateral cervical lymphadenopathy within level II and level III lymph node stations. He was discharged with referral for definitive management. PET imaging obtained on February 07, 2022 confirmed hypermetabolic activity within the oropharyngeal mass and bilateral cervical levels II and III. Combined modality treatment was recommended. The patient has received 66 Gy of a prescribed 70 [place] with an intensity modulated radiotherapy plan utilizing a step and shoot treatment technique. He has been prescribed cisplatin (40 mg/m2) weekly during radiotherapy. Upon review of systems, he continued to report fatigue. On physical examination, the patient weighed 129 lbs. His temperature was 97.3 ???F and the blood pressure was 102/70 mmHg. His pulse was 122 bpm and the respiratory rate was 17. There was a grade I dermatitis in the left lower neck. Continue radiotherapy as planned. Signed by: Dr. Rahat Parham 05/22/2022 9:09:28 AM
--- NOTE | 2022-05-24 08:25 | N.ONRD TS_ITS ---
Radiation OncologyTreatment Summary Patient Name: Chacorta Siegel Date of : 1955 Date of Service: 05/24/2022 Attending Physician: Rahat Parham M.D. 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 The patient was evaluated at the [facility]'s Emergency Department in December for odynophagia. A CT scan of the neck ordered on December 27, 2021 demonstrated irregular fluid collections within the bilateral sienna-tonsillar tissues measuring 4.1 cm x 2.4 cm x 2 cm and bilateral enhancing cervical lymphadenopathy. He was transferred to the [facility] in [place], [place] for further management. A flexible laryngoscopy was performed by the on-call group worker. Significant findings included enlargement of the right tonsil with exudate. 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 A repeat neck CT scan described irregular mucosal thickening and enhancement of the oropharyngeal and hypopharyngeal mucosa involving the tonsils, glossotonsillar pillars, base of tongue, and inferior soft palate. Also reported were bilateral cervical lymphadenopathy within level II and level III lymph node stations. He was discharged with referral for definitive management. PET imaging obtained on February 07, 2022 confirmed hypermetabolic activity within the oropharyngeal mass and bilateral cervical levels II and III. Combined modality treatment was recommended. Head and neck radiation therapy was delivered between the dates of March 13, 2022 through May 24, 2022. A dose of 70 Gy was delivered in 35 fractions encompassing 63 elapsed days. He was prescribed cisplatin (100 mg/m2). The oropharyngeal tumor and cervical lymph node regions were treated utilizing an intensity modulated radiotherapy plan with a step and shoot treatment technique. The plan required eleven gantry angles (0???, 30???, 60???, 80???, 120???, 160???, 190???, 220???, 260???, 300???, and 340???) replicating an arc. The collimator rotation was 0???. The field sizes measured between 14 cm x 15 cm to 14 cm x 17.1 cm. The SSDs measured a minimum of 84 cm to a maximum of 92.5 cm. The ports delivered 288 MU, 196 MU, 228 MU, 280 MU, 310 MU, 183 MU, 222 MU, 171 MU, 228 MU, 210 MU, and 330 MU corresponding to the gantry angles described. The initial matson began on March 13, 2022 and continued through April 21, 2022. A prescribed dose of 50 Gy was administered in 25 fractions over 40 elapsed days. The gross tumor volume and pathological lymphadenopathy were subsequently treated with an intensity modular radiotherapy plan with a step and shoot treatment technique. The plan required eleven gantry angles (0???, 30???, 60???, 80???, 120???, 160???, 190???, 220???, 260???, 300???, and 340???)replicating an arc. The collimator rotation was 0???. The field sizes spanned between 13 cm x 14.6 cm to 14.5 cm x 14.8 cm. The SSDs ranged between of 90.6 cm to a maximum of 92.7 cm. The ports distributed 259 MU, 188 MU, 214 MU, 220 MU, 128 MU, 215 MU, 194 MU, 127 MU, 152 MU, 230 MU, and 174 MU corresponding to the gantry angles described. The reduced ports commenced on May 09, 2022 and concluded May 24, 2022. An additional 20 Gy was allocated in 10 fractions over 16 elapsed days. All treatments were performed with the Swarm[employer] linear accelerator and an isocentric technique. Low energy photons were prescribed. The dose was calculated by Anisotropic Analytic Algorithm with the plan normalized to deliver 100% of the prescription dose to 95% of the planning target volume. Signed by: Dr. Rahat Parham 05/24/2022 8:23:45 AM
== END 2022-05-24 23:59 | disposition home or self-care (01) ==
PROVIDERS: Internal Medicine Hematology & Oncology; PCP Family Medicine; Visit Provider Radiology Radiation Oncology
DX: Z51.0 Encounter for antineoplastic radiation therapy; C09.8 Malignant neoplasm of overlapping sites of tonsil
CPT/HCPCS: 36591; 77336; 77386; 80053; 85025; 96366; 96367; 96375; 96413; 99024; 99203; 99213; 99214; J1100; J1200; J1453; J1940; J2469; J3475; J3480; J3490; J7030; J7040; J7050; J9060

== ENCOUNTER 2022-05-29 08:57 | Emergency (ER) | payer OTHER, SELFPAY ==
[2022-05-29] VITALS (9 sets, daily range): BP systolic 72–110; BP diastolic 52–72; PULSE 71–131; RESP 15–20; TEMP 36.5; O2SAT 94–100
--- NOTE | 2022-05-29 09:09 | ECG_ITS ---
[facility] Test Date: 2022-05-29 Pat Name: Chacorta Siegel Department: Room: Gender: Male Supervisor Forming Department: : 1955 Requested By: Roberto Alvarez Order Number: [id number] Jannie MD: Livan Napier M.D. Measurements Intervals [place] Rate: 93 P: 85 AR: 155 QRS: 93 QRSD: 79 T: 62 QT: 319 QTc: 397 Interpretive Statements SINUS RHYTHM BORDERLINE RIGHT AXIS DEVIATION [QRS AXIS > 90] POSSIBLE ANTERIOR MYOCARDIAL INFARCTION , OF INDETERMINATE AGE [30 ms Q WAVE IN V3/V4, OR R < 0.2 mV IN V4] Compared to ECG 05/20/2022 08:24:16 Sinus tachycardia no longer present Atrial abnormality no longer present Myocardial infarct finding still present Electronically Signed On 05-29-2022 19:04:06 AUTO MACHINIST by Livan Napier M.D. [id number]
[2022-05-29 09:37] LABS: Basophils % 0.4 %; Eosinophils # 0.1 10^3/uL (0.0-0.8); Eosinophils % 1.4 %; Hematocrit 31.5 % (42.0-52.0); Hemoglobin 9.9 g/dL (11.7-16.6); Lymphocytes % 17.2 %; Mean Corpuscular HGB Conc 31.4 g/dL (30.0-36.0); Mean Corpuscular Hemoglobin 29.9 pg (28.0-34.0); Mean Corpuscular Volume 95.2 fl (80-94); Mean Platelet Volume 9.1 fL (7.4-10.4); Monocytes # 0.7 10^3/uL (0.2-0.9); Neutrophils # 3.75 10^3/uL (1.8-7.7); Neutrophils % 67.9 %; Nucleated Red Blood Cells % 0 %; Platelet Count 210 10^3/cmm (130-400); Red Blood Count 3.31 10^6/uL (4.1-5.3); Red Cell Distribution Width 20.8 % (12.1-15.1); White Blood Count 5.5 10^3/uL (4.0-10.0)
[2022-05-29] MEDS: sodium chloride 0.9% 1,000 ML 999 ML IV ×2 (09:38→10:33)
--- NOTE | 2022-05-29 09:41 | W.ED.DIZZY ---
HPI - Dizziness General: Chief Complaint: Dizziness Stated Complaint: low blood pressure Time Seen by Provider: 05/29/22 09:07 Source: patient Mode of arrival: ambulatory History of Present Illness: HPI Narrative: 66-year-old male who presents to the emergency room with generalized weakness dizziness hypotension. Patient has a pharyngeal cancer he has gone through a course of radiation and he is currently getting chemotherapy. He has a history of atrial fibrillation with rapid ventricular response and he is on Eliquis and digoxin for rate control. Complains of being lightheaded and dizzy he also has some sores in his mouth recently. With any exertion he states he has very poor stamina and gets very weak and has been noticing a rapid heart rate. MD elicited complaint: dizziness and lightheadedness Onset (ago): hour(s) Timing: gradual onset Severity: moderate Description: lightheadedness Context: change in body position History of similar symptoms: Yes Exacerbating factors: change in body position and exertion Relieving factors: remaining still and lying down Associated symptoms: Reports malaise, nausea, palpitations, short of breath and weakness; Denies change in hearing, chest pain, chills, cough, diaphoresis, ear discharge, ear pressure, fevers/chills, headache(s), nasal congestion, rash, syncope, tinnitus or vomiting Associated neuro symptoms: Deny confusion, difficulty speaking, dysphagia, diplopia, extremity weakness, facial numbness, facial weakness, gait changes, numbness in extremities or visual changes Review of Systems Const: Reports: malaise; Denies: fever(s), chills or diaphoresis ENMT: Reports: throat pain and mouth pain; Denies: ear discharge, change in hearing, tinnitus or nasal congestion Card: Reports: palpitations; Denies: chest pain or syncope Resp: Denies: dyspnea, productive cough or non-productive cough GI: Reports: nausea; Denies: vomiting or dysphagia : Denies: flank pain, dysuria, urinary frequency or urinary urgency Skin/Breast: Denies: rash or pruritus Neuro: Denies: headache(s), numbness in extremities or confusion PFS ED PFSH: Medical History Acute exacerbation of chronic obstructive pulmonary disease Cellulitis COPD (chronic obstructive pulmonary disease) Coronary artery disease Diabetes mellitus Hyperlipidemia Hypertension GIDEON (obstructive sleep apnea) Presence of other vascular implants and grafts PowerPort left subclavian Dr. Mead 03/07/2022 Squamous cell carcinoma of right tonsil Stroke Throat cancer Surgical History History of heart artery stent 1996 History of surgery on arm History of surgery on lower extremity Family History Mother Cancer lung Father Stroke Sister Cancer lung Other Bleeding disorder Clotting disorder Diabetes Hyperlipidemia Social History Smoking and tobacco status: current every day smoker (1 ppd, smoked since 1971) cigarettes Packs smoked per day: 1.5 Alcohol intake: never Lives independently: Yes Household members: family Marital status: Current occupational status: retired History of recent travel: No Physical Exam Const: GENERAL APPEARANCE: cooperative and comfortable ORIENTATION/CONSCIOUSNESS: Yes awake, Yes oriented to person, Yes oriented to place and Yes oriented to time HENMT: COMMON NORMALS: normocephalic, atraumatic, hearing grossly normal bilaterally, external ears normal, EAC's normal, TM's normal bilaterally, Normal nasal mucous membranes and turbinates present, moist oral mucous membranes and oropharynx normal HEAD & SCALP: normocephalic and atraumatic NOSE: Normal nasal mucous membranes and turbinates present EXTERNAL EAR: Yes external ears normal EXTERNAL AUDITORY CANAL: EAC's normal TYMPANIC MEMBRANE: TM's normal bilaterally MOUTH: Abnormal oral and palatal mucosa present white patches TEETH & GINGIVA: Yes gingiva abnormal Resp: COMMON NORMALS: normal respiratory effort, No retractions, No use of accessory muscles and clear to auscultation bilaterally AUSCULTATION: clear to auscultation bilaterally Cardio: COMMON NORMALS: No murmurs present (Cardio) RATE: tachycardic RHYTHM: abnormal rhythm irregularly irregular GI: COMMON NORMALS: Soft to palpation and No hepatosplenomegaly present AUSCULTATION: Yes normoactive bowel sounds PALPATION: Yes Soft to palpation, No Tenderness to palpation present (GI), No Guarding due to palpation present (GI) and Yes No hepatosplenomegaly present Extremity: COMMON NORMALS: normal to inspection, capillary refill normal, no clubbing, cyanosis or edema, no calf tenderness and no pedal edema Neuro: SENSORIUM/ORIENTATION: Yes oriented to person, Yes oriented to place and Yes oriented to time Skin: COMMON NORMALS: no rashes or lesions noted GENERAL SKIN EXAM: no rashes or lesions noted Course Vital Signs: Vital signs: Vital Signs Temperature 97.7 F 05/29/22 09:02 Pulse Rate 91 05/29/22 11:30 Respiratory Rate 19 H 05/29/22 11:30 Blood Pressure 107/65 05/29/22 11:30 Pulse Oximetry 98 05/29/22 11:30 MDM - Dizziness Medical Decision Making Hypotensive and elevated lactic acid on arrival both of these issues corrected with IV fluids patient is feeling much better and wishes to go home does have significantly abnormal urine reflective of cystitis no evidence of pyelonephritis gram of Rocephin given I am here and discharged home on ciprofloxacin x10 days. Also gave ondansetron to use as needed. Finally patient did have oral thrush will discharge home with Diflucan. Medical Records I reviewed the patient's medical records. Lab Data I reviewed the patient's lab results. 05/29/22 09:20 05/29/22 09:20 Laboratory Results WBC 5.5 10^3/uL (4.0-10.0) 05/29/22 09:20 RBC 3.31 10^6/uL (4.1-5.3) L 05/29/22 09:20 Hgb 9.9 g/dL (11.7-16.6) L 05/29/22 09:20 Hct 31.5 % (42.0-52.0) L 05/29/22 09:20 MCV 95.2 fl (80-94) H 05/29/22 09:20 MCH 29.9 pg (28.0-34.0) 05/29/22 09:20 MCHC 31.4 g/dL (30.0-36.0) 05/29/22 09:20 RDW 20.8 % (12.1-15.1) H 05/29/22 09:20 Plt Count 210 10^3/cmm (130-400) 05/29/22 09:20 MPV 9.1 fL (7.4-10.4) 05/29/22 09:20 Neut % (Auto) 67.9 % 05/29/22 09:20 Lymph % (Auto) 17.2 % 05/29/22 09:20 Reynolds % (Auto) 12.0 % 05/29/22 09:20 Eos % (Auto) 1.4 % 05/29/22 09:20 Baso % (Auto) 0.4 % 05/29/22 09:20 Neut # (Auto) 3.75 10^3/uL (1.8-7.7) 05/29/22 09:20 Lymph # (Auto) 1.0 10^3/uL (0.8-4.8) 05/29/22 09:20 Reynolds # (Auto) 0.7 10^3/uL (0.2-0.9) 05/29/22 09:20 Eos # (Auto) 0.1 10^3/uL (0.0-0.8) 05/29/22 09:20 Baso # (Auto) 0.0 10^3/uL (0.0-0.1) 05/29/22 09:20 Nucleated RBC % (auto) 0 % 05/29/22 09:20 Nucleated RBCs # 0.0 /100WBC 05/29/22 09:20 Sodium 138 mmol/L (136-145) 05/29/22 09:20 Potassium 3.1 mmol/L (3.5-5.1) L 05/29/22 09:20 Chloride 99 mmol/L (98-107) 05/29/22 09:20 Carbon Dioxide 26 mmol/L (22-29) 05/29/22 09:20 Anion Gap 16.1 (5-19) 05/29/22 09:20 BUN 12 mg/dL (8-23) 05/29/22 09:20 Creatinine 0.7 mg/dL (0.7-1.2) 05/29/22 09:20 GFR Calculation 113.2 mL/min (90-130) 05/29/22 09:20 Glucose 95 mg/dL (65-115) 05/29/22 09:20 Calculated Osmolality 286 mOsm/kg (285-295) 05/29/22 09:20 Lactic Acid 2.9 mmol/L (0.5-2.2) H 05/29/22 09:20 Lactic Acid (Sepsis) 1.3 mmol/L (0.5-2.2) 05/29/22 11:32 Calcium 8.0 mg/dL (8.5-10.5) L 05/29/22 09:20 Total Bilirubin 0.3 mg/dL (0.15-1.2) 05/29/22 09:20 AST 20 U/L (0-40) 05/29/22 09:20 ALT 11 U/L (0-41) 05/29/22 09:20 Alkaline Phosphatase 152 U/L (40-130) H 05/29/22 09:20 Total Protein 5.4 g/dL (6.6-8.7) L 05/29/22 09:20 Albumin 2.1 g/dL (3.5-5.2) L 05/29/22 09:20 Globulin 3.3 g/dL (1.3-4.6) 05/29/22 09:20 Urine Color Dark yellow (Yellow) 05/29/22 11:38 Urine Appearance Cloudy (CLEAR) A 05/29/22 11:38 Urine pH 5 (5-7) 05/29/22 11:38 Ur Specific Cruger 1.020 (1.005-1.030) 05/29/22 11:38 Urine Protein 1+ (Negative) H 05/29/22 11:38 Urine Glucose (UA) Norm (Normal) 05/29/22 11:38 Urine Ketones 1+ (Negative) H 05/29/22 11:38 Urine Blood 3+ (Negative) H 05/29/22 11:38 Urine Nitrate Negative (Negative) 05/29/22 11:38 Urine Bilirubin 1+ (Negative) H 05/29/22 11:38 Urine Urobilinogen 1 mg/dL (Negative) H 05/29/22 11:38 Ur Leukocyte Esterase 1+ (Negative) H 05/29/22 11:38 Urine RBC Too numerous to cnt /hpf (0-2) H 05/29/22 11:38 Urine WBC 15-25 /hpf (0-5) H 05/29/22 11:38 Ur Squamous Epith Cells 0-4 /hpf (0-5) H 05/29/22 11:38 Amorphous Sediment Not Reportable 05/29/22 11:38 Urine Bacteria 2+ /hpf (NONE) H 05/29/22 11:38 Coarse Granular Casts 10-15 /lpf H 05/29/22 11:38 Digoxin 0.9 ng/mL (0.6-1.2) 05/29/22 09:20 Discharge Plan Discharge Patient Disposition: Home Clinical Impression: Cystitis, Squamous cell carcinoma of right tonsil, Dehydration, Candidiasis of mouth Condition: Stable Prescriptions: New ciprofloxacin HCl 500 mg tablet 500 mg PO BID Qty: 20 0RF ondansetron HCl 4 mg tablet 4 mg PO Q6H PRN (Reason: nausea and vomiting) Qty: 20 0RF fluconazole [Diflucan] 150 mg tablet 150 mg PO Q3D Qty: 2 0RF Rx Instructions: may repeat second dose 72 hrs after first dose if symptoms persist No Action digoxin 125 mcg (0.125 mg) tablet 375 mcg PO DIRECTED Rx Instructions: 05/08/22 (Dose change) Alternate with 250mcg every other day Lidocaine Viscous 2 % solution 5 ml mucous membrane Q6H PRN (Reason: Pain) Qty: 100 0RF oxycodone-acetaminophen [Percocet] 5-325 mg tablet 1 - 2 tab PO .q4-6hr PRN (Reason: pain) 30 Days Qty: 60 0RF digoxin [Digox] 250 mcg (0.25 mg) tablet 250 mcg PO DAILY Qty: 90 2RF Rx Instructions: 05/08/22 (Dose change) Alternate with 125mg every other day. albuterol sulfate 90 mcg/actuation HFA aerosol inhaler 2 inh INHALATION Q4H PRN (Reason: shortness of breath or wheezing) Qty: 18 0RF acetaminophen 500 mg Tablet 1,000 mg PO BID albuterol sulfate 2.5 mg /3 mL (0.083 %) Solution For Nebulization 2.5 mg INHALATION Q6H PRN (Reason: Shortness Of Breath) aspirin 81 mg Tablet,Delayed Release (Dr/Ec) 81 mg PO QAM cholecalciferol (vitamin D3) [Vitamin D3] 25 mcg (1,000 unit) Tablet 25 mcg PO QPM cyanocobalamin (vitamin B-12) [Vitamin B-12] 1,000 mcg Tablet 1,000 mcg PO QAM metformin 1,000 mg Tablet 500 mg PO QAM rosuvastatin [Crestor] 20 mg Tablet 10 mg PO QAM Eliquis 5 mg Tablet 5 mg PO BID Hold Instructions: Resume on 03/23/22. Spiriva Respimat 2.5 mcg/actuation Mist 2 inh INHALATION QAM mometasone-formoterol 200-5 mcg/actuation Hfa Aerosol Inhaler 2 puff INHALATION BID polyethylene glycol 3350 [Miralax] 17 gram Powder In Packet 17 g PO DAILY PRN (Reason: Constipation) Mucinex 600 mg Tablet Extended Release 12hr 600 mg PO BID Discharge Orders: Discharge ED (Routine); Ordered 05/29/22 Ordered By: Roberto Mccauley Referrals: Katrina Gaytan MD [Primary Care Provider] - Discharge Diet: Usual diet Discharge Activity: Resume usual activity Patient Instructions: Opioid Safety, Pain Management Activity Restrictions/Additional Instructions: You were seen today for hypotension. Your blood pressure improved after IV fluids you also found to have a mild cystitis. Your white count was normal you are given your first dose of IV antibiotic here and discharged home on ciprofloxacin twice daily for 10 days. Follow-up with your primary care provider. You are also given a prescription for medication for nausea and vomiting. Finally you were given Diflucan for the oral candidiasis. Coding Level of Care Code ED Automobile Brakes Bonder for Otisg Fwd Exam Detailed
[2022-05-29 09:58] LABS: Alanine Aminotransferase 11 U/L (0-41); Albumin Level 2.1 g/dL (3.5-5.2); Alkaline Phosphatase 152 U/L (40-130); Anion Gap 16.1 (5-19); Aspartate Amino Transferase 20 U/L (0-40); Blood Urea Nitrogen 12 mg/dL (8-23); Carbon Dioxide 26 mmol/L (22-29); Chloride 99 mmol/L (98-107); Globulin 3.3 g/dL (1.3-4.6); Glomerular Filtration Rate 113.2 mL/min (90-130); Glucose 95 mg/dL (65-115); Osmolality Calculated 286 mOsm/kg (285-295); Potassium 3.1 mmol/L (3.5-5.1); Sodium 138 mmol/L (136-145); Total Bilirubin 0.3 mg/dL (0.15-1.2); Total Protein 5.4 g/dL (6.6-8.7)
[2022-05-29 09:59] LABS: Digoxin 0.9 ng/mL (0.6-1.2); Lactic Sepsis W/Reflex 2.9 mmol/L (0.5-2.2)
[2022-05-29 11:22] LABS: Reflex Lactate Order REFLEX LACTIC ORDERD
[2022-05-29 11:57] LABS: Lactic Acid level (Lactate) 1.3 mmol/L (0.5-2.2)
[2022-05-29 12:18] LABS: Glucose Urine UA Norm (Normal); Ketones Urine 1+ (Negative); Protein Urine 1+ (Negative); Urine Appearance Cloudy (CLEAR); Urine Color Dark Yellow (Yellow); pH Urine 5 (5-7)
[2022-05-29 12:19] LABS: Add Urine Microscopic? YES; Bilirubin Urine 1+ (Negative); Blood Urine 3+ (Negative); Leukocyte Esterase Urine 1+ (Negative); Nitrate Urine Negative (Negative); Urobilinogen Urine 1 mg/dL (Negative)
[2022-05-29 12:20] LABS: RBC Urine TOO NUMEROUS TO CNT /hpf (0-2)
[2022-05-29 12:21] LABS: Bacteria Urine 2+ /hpf; Squamous Epithelial Cell Urine 0-4 /hpf (0-5); WBC Urine 15-25 /hpf (0-5)
[2022-05-29 12:22] LABS: Add Urine Culture? Yes
[2022-05-29] MEDS: cefTRIAXone 1,000 MG in lidocaine 1% 2.1 ML 2.1 MG IM (12:50)
--- NOTE | 2022-05-29 13:02 | PC.NURSE ---
PT PORT ACCESS REMOVED WITH PULSATING NS FLUSH
== END 2022-05-29 13:00 | disposition home or self-care (01) ==
PROVIDERS: Emergency Provider Family Medicine; PCP Family Medicine
DX: N30.90 Cystitis, unspecified without hematuria (principal); C09.9 Malignant neoplasm of tonsil, unspecified; E86.0 Dehydration; B37.0 Candidal stomatitis; Z79.01 Long term (current) use of anticoagulants; Z79.84 Long term (current) use of oral hypoglycemic drugs; Z79.82 Long term (current) use of aspirin; F17.210 Nicotine dependence, cigarettes, uncomplicated; J44.9 Chronic obstructive pulmonary disease, unspecified; I25.10 Atherosclerotic heart disease of native coronary artery without angina pectoris; E11.9 Type 2 diabetes mellitus without complications; E78.5 Hyperlipidemia, unspecified; I10 Essential (primary) hypertension; Z86.73 Personal history of transient ischemic attack (TIA), and cerebral infarction without residual deficits
CPT/HCPCS: 36415; 80053; 80162; 81001; 83605; 85025; 87040; 87086; 93005; 96360; 96361; 96372; 99284; J0696; J7030

== ENCOUNTER 2022-06-01 08:39 | Emergency (ER) | payer OTHER, SELFPAY ==
[2022-06-01] VITALS (8 sets, daily range): BP systolic 84–113; BP diastolic 51–71; PULSE 69–89; RESP 13–19; O2SAT 94–100; BMI 19.3
--- NOTE | 2022-06-01 08:46 | ECG_ITS ---
[facility] Test Date: 2022-06-01 Pat Name: Chacorta Siegel Department: Room: Gender: Male Performance Specialist: : 1955 Requested By: Roberto Alvarez Order Number: [id number] Jannie MD: Livan Napier M.D. Measurements Intervals [place] Rate: 87 P: 78 RI: 155 QRS: 136 QRSD: 81 T: 37 QT: 356 QTc: 428 Interpretive Statements SINUS RHYTHM INDETERMINATE AXIS LEFT POSTERIOR FASCICULAR BLOCK [QRS AXIS > 109, INFERIOR Q] POSSIBLE ANTERIOR MYOCARDIAL INFARCTION , PROBABLY OLD [30 ms Q WAVE IN V3/V4, OR R < 0.2 mV IN V4] Compared to ECG 05/29/2022 09:48:12 Indeterminate axis now present Left posterior fascicular block now present Myocardial infarct finding still present Electronically Signed On 06-01-2022 10:15:09 MATHEMATICS TEACHER by Livan Napier M.D. [id number]
[2022-06-01 08:58] LABS: Basophils % 0.4 %; Eosinophils # 0.1 10^3/uL (0.0-0.8); Eosinophils % 0.7 %; Hematocrit 31.4 % (42.0-52.0); Hemoglobin 9.7 g/dL (11.7-16.6); Lymphocytes # 1.7 10^3/uL (0.8-4.8); Mean Corpuscular HGB Conc 30.9 g/dL (30.0-36.0); Mean Corpuscular Hemoglobin 30.4 pg (28.0-34.0); Mean Corpuscular Volume 98.4 fl (80-94); Mean Platelet Volume 8.9 fL (7.4-10.4); Monocytes # 0.8 10^3/uL (0.2-0.9); Monocytes % 11.9 %; Neutrophils # 4.27 10^3/uL (1.8-7.7); Neutrophils % 60.7 %; Nucleated Red Blood Cells % 0 %; Platelet Count 177 10^3/cmm (130-400); Red Blood Count 3.19 10^6/uL (4.1-5.3); Red Cell Distribution Width 20.5 % (12.1-15.1)
[2022-06-01] MEDS: sodium chloride 0.9% 1,000 ML 999 ML IV ×3 (09:01→13:14)
--- NOTE | 2022-06-01 09:05 | PC.NURSE ---
[facility] ACCESS[facility] PRIOR TO ARRIVAL TO ED
[2022-06-01 09:19] LABS: Alanine Aminotransferase 11 U/L (0-41); Albumin Level 1.9 g/dL (3.5-5.2); Alkaline Phosphatase 148 U/L (40-130); Aspartate Amino Transferase 21 U/L (0-40); Blood Urea Nitrogen 8 mg/dL (8-23); Calcium 7.9 mg/dL (8.5-10.5); Carbon Dioxide 26 mmol/L (22-29); Chloride 101 mmol/L (98-107); Globulin 3.3 g/dL (1.3-4.6); Glomerular Filtration Rate 84.7 mL/min (90-130); Glucose 99 mg/dL (65-115); Osmolality Calculated 286 mOsm/kg (285-295); Sodium 139 mmol/L (136-145); Total Bilirubin 0.2 mg/dL (0.15-1.2); Total Protein 5.2 g/dL (6.6-8.7)
[2022-06-01 09:20] LABS: Digoxin 1.2 ng/mL (0.6-1.2)
--- NOTE | 2022-06-01 09:33 | W.ED.WEAKNES ---
HPI - Weakness General: Chief complaint: Weakness Stated complaint: low BP Time Seen by Provider: 06/01/22 08:45 Source: patient Mode of arrival: ambulatory History of Present Illness: 66-year-old male returns to the emergency room with lightheadedness dizziness weakness. He was at the oncology clinic to get hydration today he was hypotensive and weak and he was redirected to the emergency room. He denies any chest pain or abdominal pain no nausea vomiting diarrhea he was here recently with similar presentation given IV fluids he improved and went home he has a history of pharyngeal cancer he has undergone chemo and he recently completed at round of radiation his last radiation treatment was last week Sunday 8 days ago. Its been about 4 weeks since his last chemo. No chest pain or shortness of breath. He is complaining of a headache. He has not had any nausea or vomiting no trauma to the head. MD Complaint: generalized weakness Onset (ago): hour(s) Duration: constant Location: generalized Relieving factors: none Exacerbating factors: none Associated symptoms: Reports decreased appetite and headache(s); Denies chest pain, chills, confusion, melena, diaphoresis, dysuria, easy bruising, fever(s), myalgias, nausea, rash, short of breath, syncope or vomiting Review of Systems Const: Reports: fatigue and malaise; Denies: fever(s), chills or diaphoresis ENMT: Denies: throat pain, ear or mastoid pain, nasal discharge or nasal congestion Card: Denies: chest pain or syncope Resp: Denies: dyspnea, productive cough or non-productive cough GI: Denies: abdominal pain, nausea, vomiting or melena : Denies: dysuria Musc: Denies: neck pain or back pain Skin/Breast: Denies: rash or pruritus Neuro: Reports: headache(s); Denies: confusion Paco/Lymph: Denies: easy bruising PFSH ED PFSH: Medical History Acute exacerbation of chronic obstructive pulmonary disease Cellulitis COPD (chronic obstructive pulmonary disease) Coronary artery disease Diabetes mellitus Hyperlipidemia Hypertension GIDEON (obstructive sleep apnea) Presence of other vascular implants and grafts PowerPort left subclavian Dr. Mead 03/07/2022 Squamous cell carcinoma of right tonsil Stroke Throat cancer Surgical History History of heart artery stent 1996 History of surgery on arm History of surgery on lower extremity Family History Mother Cancer lung Father Stroke Sister Cancer lung Other Bleeding disorder Clotting disorder Diabetes Hyperlipidemia Social History Smoking and tobacco status: current every day smoker (1 ppd, smoked since 1971) cigarettes Packs smoked per day: 1.5 Alcohol intake: never Lives independently: Yes Household members: family Marital status: Current occupational status: retired History of recent travel: No Physical Exam Const: GENERAL APPEARANCE: cooperative and comfortable ORIENTATION/CONSCIOUSNESS: Yes awake, Yes oriented to person, Yes oriented to place and Yes oriented to time HENMT: COMMON NORMALS: normocephalic, atraumatic and hearing grossly normal bilaterally HEAD & SCALP: normocephalic and atraumatic Lymph: LYMPHATIC: no lymphadenopathy noted and no lymphedema noted Resp: COMMON NORMALS: normal respiratory effort, No retractions, No use of accessory muscles and clear to auscultation bilaterally AUSCULTATION: clear to auscultation bilaterally Cardio: COMMON NORMALS: regular rate, regular rhythm and No murmurs present (Cardio) RATE: regular rate RHYTHM: regular rhythm GI: COMMON NORMALS: Soft to palpation and No hepatosplenomegaly present AUSCULTATION: Yes normoactive bowel sounds PALPATION: Yes Soft to palpation, No Tenderness to palpation present (GI), No Guarding due to palpation present (GI) and Yes No hepatosplenomegaly present Extremity: COMMON NORMALS: normal to inspection, capillary refill normal, no clubbing, cyanosis or edema, no calf tenderness and no pedal edema Neuro: SENSORIUM/ORIENTATION: Yes oriented to person, Yes oriented to place and Yes oriented to time Skin: COMMON NORMALS: no rashes or lesions noted GENERAL SKIN EXAM: no rashes or lesions noted Course Vital Signs: Vital signs: Vital Signs Pulse Rate 76 06/01/22 14:00 Respiratory Rate 13 06/01/22 14:00 Blood Pressure 113/60 06/01/22 14:00 Pulse Oximetry 97 06/01/22 14:00 Oxygen Delivery Me thod 06/01/22 09:54 Oxygen Flow Rate 2 06/01/22 09:54 MDM - Weakness Medical Decision Making Patient is feeling much better after IV fluids and wants to go home. He is concerned about taking his pills. He is given a little over 2 L of fluid. Labs reviewed his white count is normal he does not have a left shift. Having any chest or abdominal pain no dysuria urgency or frequency we did try to get a urine from him. When he was seen on 05/29 he had blood cultures done and these were reviewed both of which were negative and urine culture done on 05/29 was negative. He persistently has not been able to keep anything down even with the ondansetron. Given Phenergan to use in addition to the ondansetron. Encouraged him to follow-up with oncology tomorrow. Medical Records I reviewed the patient's medical records. Lab Data I reviewed the patient's lab results. 06/01/22 08:52 06/01/22 08:52 Laboratory Results WBC 7.0 10^3/uL (4.0-10.0) 06/01/22 08:52 RBC 3.19 10^6/uL (4.1-5.3) L 06/01/22 08:52 Hgb 9.7 g/dL (11.7-16.6) L 06/01/22 08:52 Hct 31.4 % (42.0-52.0) L 06/01/22 08:52 MCV 98.4 fl (80-94) H 06/01/22 08:52 MCH 30.4 pg (28.0-34.0) 06/01/22 08:52 MCHC 30.9 g/dL (30.0-36.0) 06/01/22 08:52 RDW 20.5 % (12.1-15.1) H 06/01/22 08:52 Plt Count 177 10^3/cmm (130-400) 06/01/22 08:52 MPV 8.9 fL (7.4-10.4) 06/01/22 08:52 Neut % (Auto) 60.7 % 06/01/22 08:52 Lymph % (Auto) 24.0 % 06/01/22 08:52 [place] % (Auto) 11.9 % 06/01/22 08:52 Eos % (Auto) 0.7 % 06/01/22 08:52 Baso % (Auto) 0.4 % 06/01/22 08:52 Neut # (Auto) 4.27 10^3/uL (1.8-7.7) 06/01/22 08:52 Lymph # (Auto) 1.7 10^3/uL (0.8-4.8) 06/01/22 08:52 [place] # (Auto) 0.8 10^3/uL (0.2-0.9) 06/01/22 08:52 Eos # (Auto) 0.1 10^3/uL (0.0-0.8) 06/01/22 08:52 Baso # (Auto) 0.0 10^3/uL (0.0-0.1) 06/01/22 08:52 Nucleated RBC % (auto) 0 % 06/01/22 08:52 Nucleated RBCs # 0.0 /100WBC 06/01/22 08:52 Sodium 139 mmol/L (136-145) 06/01/22 08:52 Potassium 3.0 mmol/L (3.5-5.1) L 06/01/22 08:52 Chloride 101 mmol/L (98-107) 06/01/22 08:52 Carbon Dioxide 26 mmol/L (22-29) 06/01/22 08:52 Anion Gap 15.0 (5-19) 06/01/22 08:52 BUN 8 mg/dL (8-23) 06/01/22 08:52 Creatinine 0.9 mg/dL (0.7-1.2) 06/01/22 08:52 GFR Calculation 84.7 mL/min (90-130) L 06/01/22 08:52 Glucose 99 mg/dL (65-115) 06/01/22 08:52 Calculated Osmolality 286 mOsm/kg (285-295) 06/01/22 08:52 Calcium 7.9 mg/dL (8.5-10.5) L 06/01/22 08:52 Total Bilirubin 0.2 mg/dL (0.15-1.2) 06/01/22 08:52 AST 21 U/L (0-40) 06/01/22 08:52 ALT 11 U/L (0-41) 06/01/22 08:52 Alkaline Phosphatase 148 U/L (40-130) H 06/01/22 08:52 Total Protein 5.2 g/dL (6.6-8.7) L 06/01/22 08:52 Albumin 1.9 g/dL (3.5-5.2) L 06/01/22 08:52 Globulin 3.3 g/dL (1.3-4.6) 06/01/22 08:52 Digoxin 1.2 ng/mL (0.6-1.2) 06/01/22 08:52 Discharge Plan Discharge Patient Disposition: Home Clinical Impression: Dehydration, Diabetes mellitus, Squamous cell carcinoma of right tonsil Condition: Stable Prescriptions: New promethazine 25 mg tablet 25 mg PO Q6H PRN (Reason: nausea and vomiting) Qty: 20 0RF No Action digoxin 125 mcg (0.125 mg) tablet 125 mcg PO DIRECTED Rx Instructions: 05/08/22 (Dose change) Alternate with 250mcg every other day Lidocaine Viscous 2 % solution 5 ml mucous membrane Q6H PRN (Reason: Pain) Qty: 100 0RF oxycodone 5 mg/5 mL solution 5 mg PO .q4-6h PRN (Reason: pain) 14 Days Qty: 250 0RF albuterol sulfate 90 mcg/actuation HFA aerosol inhaler 2 inh INHALATION Q4H PRN (Reason: shortness of breath or wheezing) Qty: 18 0RF acetaminophen 500 mg Tablet 1,000 mg PO BID albuterol sulfate 2.5 mg /3 mL (0.083 %) Solution For Nebulization 2.5 mg INHALATION Q6H PRN (Reason: Shortness Of Breath) aspirin 81 mg Tablet,Delayed Release (Dr/Ec) 81 mg PO QAM cholecalciferol (vitamin D3) [Vitamin D3] 25 mcg (1,000 unit) Tablet 25 mcg PO QPM Nutritional Drink Liquid 1 ea PO DAILY Digox 250 mcg (0.25 mg) tablet 250 mcg PO . DIRECTED Rx Instructions: 05/08/22 (Dose change) Alternate with 125mg every other day. cyanocobalamin (vitamin B-12) [Vitamin B-12] 1,000 mcg Tablet 1,000 mcg PO QAM metformin 1,000 mg Tablet 500 mg PO QAM rosuvastatin [Crestor] 20 mg Tablet 10 mg PO QAM Eliquis 5 mg Tablet 5 mg PO BID Hold Instructions: Resume on 03/11/22. Spiriva Respimat 2.5 mcg/actuation Mist 2 inh INHALATION QAM mometasone-formoterol 200-5 mcg/actuation Hfa Aerosol Inhaler 2 puff INHALATION BID polyethylene glycol 3350 [Miralax] 17 gram Powder In Packet 17 g PO DAILY PRN (Reason: Constipation) guaifenesin [Mucinex] 600 mg Tablet Extended Release 12hr 600 mg PO BID ciprofloxacin HCl 500 mg tablet 500 mg PO BID Qty: 20 0RF ondansetron HCl 4 mg tablet 4 mg PO Q6H PRN (Reason: nausea and vomiting) Qty: 20 0RF fluconazole [Diflucan] 150 mg tablet 150 mg PO Q3D Qty: 2 0RF Rx Instructions: may repeat second dose 72 hrs after first dose if symptoms persist Discharge Orders: Discharge ED (Routine); Ordered 06/01/22 Ordered By: Roberto Mccauley Referrals: Katrina Gaytan MD [Primary Care Provider] - Discharge Diet: Usual diet Discharge Activity: Increase activity as tolerated Patient Instructions: Opioid Safety, Pain Management Activity Restrictions/Additional Instructions: You were seen today for mild dehydration. Your symptoms improved after 2 L of IV fluids. You be discharged home you can use the Zofran and/or promethazine as needed for nausea. Recommend you follow-up with oncology tomorrow about possibly getting IV fluids prior to the weekend again. Return to the emergency room for further problems. Coding Level of Care Code ED [facility] Transporter for Bernice Fwjimbo Exam Comprehensive
--- NOTE | 2022-06-01 14:09 | PC.NURSE ---
PORT ACCESS DC'D WITH PULSATING FLUSH
[2022-06-01 22:24] LABS: Add Urine Microscopic? YES; Bilirubin Urine 1+ (Negative); Blood Urine 3+ (Negative); Glucose Urine UA Norm (Normal); Ketones Urine 1+ (Negative); Leukocyte Esterase Urine Negative (Negative); Nitrate Urine Negative (Negative); Protein Urine 1+ (Negative); Urine Appearance SL Hazy (CLEAR); Urine Color Brown (Yellow); Urobilinogen Urine Norm (Negative); pH Urine 5 (5-7)
[2022-06-01 22:25] LABS: Add Urine Culture? No; Amorphous Sediment Urine 1+ /hpf; Bacteria Urine TRACE /hpf; Coarse Granular Casts Urine 0-4 /lpf; RBC Urine TOO NUMEROUS TO CNT /hpf (0-2); Renal Epithelial Cells Urine 0-2 /hpf; Squamous Epithelial Cell Urine 0-4 /hpf (0-5); WBC Urine 0-4 /hpf (0-5)
== END 2022-06-01 14:05 | disposition home or self-care (01) ==
PROVIDERS: Emergency Provider Family Medicine; PCP Family Medicine
DX: E11.9 Type 2 diabetes mellitus without complications (principal); E86.0 Dehydration; C09.9 Malignant neoplasm of tonsil, unspecified; Z79.01 Long term (current) use of anticoagulants; Z79.82 Long term (current) use of aspirin; F17.210 Nicotine dependence, cigarettes, uncomplicated; J44.9 Chronic obstructive pulmonary disease, unspecified; I25.10 Atherosclerotic heart disease of native coronary artery without angina pectoris; E78.5 Hyperlipidemia, unspecified; I10 Essential (primary) hypertension; Z86.73 Personal history of transient ischemic attack (TIA), and cerebral infarction without residual deficits; Z85.89 Personal history of malignant neoplasm of other organs and systems
CPT/HCPCS: 80053; 80162; 81001; 85025; 93005; 96360; 96361; 99284; J7030

== ENCOUNTER 2022-06-06 09:06 | Emergency (ER) | payer OTHER, SELFPAY ==
--- NOTE | 2022-06-06 09:11 | XRR_ITS ---
PROCEDURE INFORMATION: Exam: XR Chest Exam date and time: 06/06/2022 9:29 AM Age: 66 years old Clinical indication: Cough and dyspnea; Prior surgery; Surgery type: Cardiac stents. SOB for quite some time but getting worse. HX of copd; Additional info: Dyspnea/cough TECHNIQUE: Imaging protocol: Radiologic exam of the chest. Views: 1 view. COMPARISON: CR XR chest 1V portable [id number] 03/19/2022 7:20 PM FINDINGS: Tubes, catheters and devices: The tip of a MediPort catheter projects on the SVC. Lungs: There is consolidation in the left base along the diaphragm with small left effusion. Pleural spaces: No pneumothorax. Heart/Mediastinum: Unremarkable. No cardiomegaly. Bones/joints: Unremarkable. XR/XR chest 1V portable [id number] IMPRESSION: Left lower lobe pneumonia with a small pleural effusion.
[2022-06-06] MEDS: sodium chloride 0.9% 1,000 ML 999 ML IV ×2 (09:27→11:29)
[2022-06-06 09:29] VITALS: BP 79/51; PULSE 92; RESP 16; TEMP 36.3; O2SAT 99
[2022-06-06 09:35] LABS: Basophils % 0.3 %; Eosinophils % 0.7 %; Hematocrit 28.2 % (42.0-52.0); Lymphocytes # 0.9 10^3/uL (0.8-4.8); Lymphocytes % 14.5 %; Mean Corpuscular HGB Conc 31.9 g/dL (30.0-36.0); Mean Corpuscular Hemoglobin 30.4 pg (28.0-34.0); Mean Corpuscular Volume 95.3 fl (80-94); Mean Platelet Volume 9.4 fL (7.4-10.4); Monocytes # 0.5 10^3/uL (0.2-0.9); Monocytes % 9.1 %; Neutrophils # 4.25 10^3/uL (1.8-7.7); Neutrophils % 71.9 %; Nucleated Red Blood Cells % 0 %; Platelet Count 158 10^3/cmm (130-400); Red Blood Count 2.96 10^6/uL (4.1-5.3); Red Cell Distribution Width 20.6 % (12.1-15.1); White Blood Count 5.9 10^3/uL (4.0-10.0)
--- NOTE | 2022-06-06 09:56 | W.ED.GENADLT ---
HPI - General Adult General: Chief complaint: General Medical Stated complaint: LOW BLOOD PRESSURE Time Seen by Provider: 06/06/22 09:11 Source: patient Mode of arrival: ambulatory History of Present Illness: 66-year-old male presents emergency room hypotensive again. He has been here several times in the last week he frequently is getting hypotensive. We worked him up for sepsis which was negative including normal lactic acid normal cultures urine and blood. He denies any chest pain or discomfort he has a slight cough is nonproductive is not particularly been short of breath he has been very weak lately each time he is come in we given fluids and his symptoms resolved. Onset (ago): week(s) Severity: mild Quality: burning Pain Consistency: constant Relieving factors: none Exacerbating factors: none Associated symptoms: Deny chest pain, confusion, cough, diaphoresis, decreased appetite, dyspnea, fevers/chills, headache(s), malaise, nausea, rash, palpitations, seizures, short of breath, syncope, vomiting or weakness Review of Systems Const: Reports: fatigue; Denies: fever(s), chills, malaise or diaphoresis ENMT: Denies: throat pain, ear or mastoid pain, nasal discharge or nasal congestion Card: Denies: chest pain, palpitations or syncope Resp: Reports: non-productive cough; Denies: dyspnea, productive cough or wheezing GI: Denies: abdominal pain, nausea or vomiting : Denies: flank pain, dysuria, urinary frequency or urinary urgency Skin/Breast: Denies: rash or pruritus Neuro: Denies: headache(s) or confusion PFSH ED PFSH: Medical History Acute exacerbation of chronic obstructive pulmonary disease Cellulitis COPD (chronic obstructive pulmonary disease) Coronary artery disease Diabetes mellitus Hyperlipidemia Hypertension GIDEON (obstructive sleep apnea) Presence of other vascular implants and grafts PowerPort left subclavian Dr. Mead 03/07/2022 Squamous cell carcinoma of right tonsil Stroke Throat cancer Surgical History History of heart artery stent 1996 History of surgery on arm History of surgery on lower extremity Family History Mother Cancer lung Father Stroke Sister Cancer lung Other Bleeding disorder Clotting disorder Diabetes Hyperlipidemia Social History Smoking and tobacco status: current every day smoker (1 ppd, smoked since 1971) cigarettes Packs smoked per day: 1.5 Alcohol intake: never Lives independently: Yes Household members: family Marital status: Current occupational status: retired History of recent travel: No Physical Exam Const: COMMON NORMALS: no acute distress GENERAL APPEARANCE: cooperative and comfortable ORIENTATION/CONSCIOUSNESS: Yes awake, Yes oriented to person, Yes oriented to place and Yes oriented to time HENMT: COMMON NORMALS: normocephalic, atraumatic and hearing grossly normal bilaterally HEAD & SCALP: normocephalic and atraumatic Eye: COMMON NORMALS: Equal, round and reactive pupils present, EOMs intact bilaterally, conjunctivae normal and no scleral icterus CONJUNCTIVA: Yes conjunctivae normal PUPIL: Yes Equal, round and reactive pupils present Neck/C-Spine: COMMON NORMALS: full ROM, supple and no JVD Resp: COMMON NORMALS: normal respiratory effort, No retractions, No use of accessory muscles and clear to auscultation bilaterally AUSCULTATION: clear to auscultation bilaterally Cardio: COMMON NORMALS: no JVD, regular rate, regular rhythm and No murmurs present (Cardio) RATE: regular rate RHYTHM: regular rhythm GI: COMMON NORMALS: Soft to palpation and No hepatosplenomegaly present AUSCULTATION: Yes normoactive bowel sounds PALPATION: Yes Soft to palpation, No Tenderness to palpation present (GI), No Guarding due to palpation present (GI) and Yes No hepatosplenomegaly present Extremity: COMMON NORMALS: normal to inspection, capillary refill normal, no clubbing, cyanosis or edema, no calf tenderness and no pedal edema Neuro: SENSORIUM/ORIENTATION: Yes oriented to person, Yes oriented to place and Yes oriented to time Skin: COMMON NORMALS: no rashes or lesions noted GENERAL SKIN EXAM: no rashes or lesions noted Course Vital Signs: Vital signs: Vital Signs Temperature 97.4 F L 06/06/22 10:32 Pulse Rate 75 06/06/22 14:30 Respiratory Rate 14 06/06/22 14:30 Blood Pressure 107/59 06/06/22 14:30 Pulse Oximetry 96 06/06/22 14:30 Oxygen Delivery Me thod 06/06/22 14:30 MDM - General Adult Medical Decision Making Patient is here twice last week and then today. We seen him when done cultures result came back negative he has hematuria he is on Eliquis. He has seen Dr. Lincoln for this in the past he is on digoxin for tachybradycardia syndrome and his dig level has been creeping up a little bit. Each time he comes in he is hypotensive he responds well to fluids feels much better and wants to go home. He did get started on Cipro for potential bladder infection based on the hematuria but the previous culture last week was negative. Today we did a cortisol level and a CPK both of those are unremarkable he is hypokalemic. He is fairly hypoalbuminemic. I suspect that is where his main problem is coming from his p.o. intake he admits is poor and he just does not feel like eating. I think he is third spacing fluid as evidenced by the CT which caused him to get hypovolemic which he will respond to well with supplemental IV fluids but that seems to go away after a day or so. He did have a small pneumonia but he is essentially asymptomatic of that the effusion is relatively small as well and does not require any intervention at this time Dr. Becrera did not feel there is an underlying mass but she did recommend that it be followed up. He is anemic and has been getting progressively worse I suspect from his hematuria. After the fluids he is feeling much better. Dr. Justice was concerned and asked that we consult the hospitalist Dr. White seen the patient's please see her consultation note. I recommend that we decrease his digoxin 125 mcg every other day, stop the metformin, both of these have potential negative side effects her appetite. I do not think he requires the metformin anymore it is probably of little to no benefit may be detrimental and his dig level is running a little bit on the high side so but 1 on a dig level should be therapeutic enough at his age. Add potassium 20 mEq twice daily x3 days he could consider having him get a PEG tube placed over this requirement stop his Eliquis he recently has large DVT in the right arm extending up into the carotid. It may be sometime before he is able to stop the Eliquis enough to have the PEG tube placed. We will stop the Eliquis for now and switch him to Lovenox since he developed the right arm DVT while on Eliquis. Due to a previous bad experience with a PEG tube is not very interested in repeating this anyway. Discussed with him the importance of adequate nutrition recommend that he schedule intake of supplemental liquid meal replacements such as Ensure Sustacal he should try to drink at minimum 4-5 preferably as many as 6/day. Also encourage at least 1500 mL/day of oral fluid intake. Recommend that he follow-up later this week to recheck a potassium with [facility] Medical Records I reviewed the patient's medical records. Lab Data I reviewed the patient's lab results. 06/06/22 09:22 06/06/22 09:22 Radiology Impressions Chest X-Ray 06/06/22 09:11 IMPRESSION: Left lower lobe pneumonia with a small pleural effusion. Abdomen/Pelvis CT 06/06/22 11:12 IMPRESSION: 1. No obstructing renal or ureteral calculi. Chest CTA 06/06/22 11:12 IMPRESSION: 1. No evidence of pulmonary embolus. 2. Small LEFT pleural effusion with volume loss LEFT lower lobe. Compressive atelectasis with a few air bronchograms in the lingula and LEFT lower lobe. Recommend correlation for pneumonia. 3. Small pericardial effusion. 4. Small esophageal hiatal hernia. Laboratory Results WBC 5.9 10^3/uL (4.0-10.0) 06/06/22 09: RBC 2.96 10^6/uL (4.1-5.3) L 06/06/22 09:22 Hgb 9.0 g/dL (11.7-16.6) L 06/06/22:22 Hct 28.2 % (42.0-52.0) L 06/06/22 09:22 MCV 95.3 fl (80-94) H 06/06/22 09:22 MCH 30.4 pg (28.0-34.0) 06/06/22 09: MCHC 31.9 g/dL (30.0-36.0) 06/06/22: RDW 20.6 % (12.1-15.1) H 06/06/22 09:22 Plt Count 158 10^3/cmm (130-400) 06/06/22 09:22 MPV 9.4 fL (7.4-10.4) 06/06/22 09:22 Neut % (Auto) 71.9 % 06/06/22 09: Lymph % (Auto) 14.5 % 06/06/22 09: Adams % (Auto) 9.1 % 06/06/22 09: Eos % (Auto) 0.7 % 06/06/22 09:22 Baso % (Auto) 0.3 % 06/06/22 09: Neut # (Auto) 4.25 10^3/uL (1.8-7.7) 06/06/22 09: Lymph # (Auto) 0.9 10^3/uL (0.8-4.8) 06/06/22: Adams # (Auto) 0.5 10^3/uL (0.2-0.9) 06/06/22 09: Eos # (Auto) 0.0 10^3/uL (0.0-0.8) 06/06/22 09: Baso # (Auto) 0.0 10^3/uL (0.0-0.1) 06/06/22 09: Nucleated RBC % (auto) 0 % 06/06/22 09: Nucleated RBCs # 0.0 /100WBC 06/06/22 09:22 Sodium 143 mmol/L (136-145) 06/06/22 09: Potassium 2.8 mmol/L (3.5-5.1) L* 06/06/22 09: Chloride 104 mmol/L (98-107) 06/06/22 09: Carbon Dioxide 24 mmol/L (22-29) 06/06/22 09:22 Anion Gap 17.8 (5-19) 06/06/22 09:22 BUN 5 mg/dL (8-23) L 06/06/22 09:22 Creatinine 0.8 mg/dL (0.7-1.2) 06/06/22 09:22 GFR Calculation 97.0 mL/min (90-130) 06/06/22 09:22 Glucose 62 mg/dL (65-115) L 06/06/22 09:22 Calculated Osmolality 291 mOsm/kg (285-295) 06/06/22 09:22 Lactic Acid 1.7 mmol/L (0.5-2.2) 06/06/22 09:22 Calcium 7.3 mg/dL (8.5-10.5) L 06/06/22 09:22 Total Bilirubin 0.2 mg/dL (0.15-1.2) 06/06/22 09:22 AST 26 U/L (0-40) 06/06/22 09:22 ALT 11 U/L (0-41) 06/06/22 09:22 Alkaline Phosphatase 112 U/L (40-130) 06/06/22 09: Creatine Kinase 37 U/L (39-308) L 06/06/22 09:22 Total Protein 4.8 g/dL (6.6-8.7) L 06/06/22 09: Albumin 1.9 g/dL (3.5-5.2) L 06/06/22: Globulin 2.9 g/dL (1.3-4.6) 06/06/22 09: Random Cortisol 15.47 ug/dL (2.47-19.5) 06/06/22 09: Urine Color Red (Yellow) 06/06/22 10:30 Urine Appearance Bloody (CLEAR) A 06/06/22 10:30 Urine pH 5 (5-7) 06/06/22 10:30 Ur Specific [place] 1.015 (1.005-1.030) 06/06/22 10:30 Urine Protein 1+ (Negative) H 06/06/22 10:30 Urine Glucose (UA) Norm (Normal) 06/06/22 10:30 Urine Ketones 1+ (Negative) H 06/06/22 10:30 Urine Blood 3+ (Negative) H 06/06/22 10:30 Urine Nitrate Negative (Negative) 06/06/22 10:30 Urine Bilirubin Neg (Negative) 06/06/22 10:30 Urine Urobilinogen Norm mg/dL (Negative) 06/06/22 10:30 Ur Leukocyte Esterase Negative (Negative) 06/06/22 10:30 Urine RBC Too numerous to cnt /hpf (0-2) H 06/06/22 10:30 Urine WBC None /hpf (0-5) 06/06/22 10:30 Ur Squamous Epith Cells None /hpf (0-5) 06/06/22 10:30 Amorphous Sediment Not Reportable 06/06/22 10:30 Urine Bacteria 3+ /hpf (NONE) H 06/06/22 10:30 Digoxin 1.3 ng/mL (0.6-1.2) H 06/06/22 09:22 Discharge Plan Discharge Patient Disposition: Home Clinical Impression: Hypoalbuminemia, Diabetes mellitus, Squamous cell carcinoma of right tonsil, Tachycardia-bradycardia, COPD (chronic obstructive pulmonary disease), Pneumonia, Hypotension Condition: Stable Prescriptions: New potassium chloride 20 mEq tablet extended release 20 meq PO BID Qty: 6 0RF Lovenox 60 mg/0.6 mL syringe 60 mg SUBCUT Q12H 30 Days Qty: 36 0RF Rx Instructions: Stop Eliquis Changed digoxin 125 mcg (0.125 mg) tablet 125 mcg PO .QOD Qty: 30 0RF Discontinued Eliquis 5 mg tablet 5 mg PO BID 30 Days Qty: 60 0RF Hold Instructions: Resume on 03/23/22. digoxin [Digox] 250 mcg (0.25 mg) tablet 250 mcg PO . DIRECTED Rx Instructions: 05/08/22 (Dose change) Alternate with 125mg every other day. metformin 1,000 mg Tablet 500 mg PO QAM No Action Lidocaine Viscous 2 % solution 5 ml mucous membrane Q6H PRN (Reason: Pain) Qty: 100 0RF albuterol sulfate 90 mcg/actuation HFA aerosol inhaler 2 inh INHALATION Q4H PRN (Reason: shortness of breath or wheezing) Qty: 18 0RF acetaminophen 500 mg Tablet 1,000 mg PO BID albuterol sulfate 2.5 mg /3 mL (0.083 %) Solution For Nebulization 2.5 mg INHALATION Q6H PRN (Reason: Shortness Of Breath) aspirin 81 mg Tablet,Delayed Release (Dr/Ec) 81 mg PO QAM cholecalciferol (vitamin D3) [Vitamin D3] 25 mcg (1,000 unit) Tablet 25 mcg PO QPM promethazine 25 mg tablet 25 mg PO Q6H PRN (Reason: nausea and vomiting) Qty: 20 0RF cyanocobalamin (vitamin B-12) [Vitamin B-12] 1,000 mcg Tablet 1,000 mcg PO QAM rosuvastatin [Crestor] 20 mg Tablet 10 mg PO QAM Spiriva Respimat 2.5 mcg/actuation Mist 2 inh INHALATION QAM mometasone-formoterol 200-5 mcg/actuation Hfa Aerosol Inhaler 2 puff INHALATION BID polyethylene glycol 3350 [Miralax] 17 gram Powder In Packet 17 g PO DAILY PRN (Reason: Constipation) guaifenesin [Mucinex] 600 mg Tablet Extended Release 12hr 600 mg PO BID ondansetron HCl 4 mg tablet 4 mg PO Q6H PRN (Reason: nausea and vomiting) Qty: 20 0RF Discharge Orders: Discharge ED (Routine); Ordered 06/06/22 Ordered By: Roberto Mccauley Referrals: Katrina Gaytan MD [Primary Care Provider] - Discharge Diet: Usual diet Patient Instructions: Opioid Safety, Pain Management Activity Restrictions/Additional Instructions: You were seen today for hypotension which improved with IV fluids. Hypokalemia as well as hypoalbuminemia (low protein). Make the following recommendations first stop metformin. Second decrease digoxin to 125 mcg every other day. Finally is critically important that you maintain adequate fluid intake and nutrition. You should drink at least 3-4 meal supplements such as Ensure Sustacal daily ideally 5 or 6. Additionally you should take in at least 1500 mL daily of oral fluid intake. [facility] 4 [facility], with a CBC and BMP. Additionally you should take the prescribed potassium supplement 1 pill twice daily for the next 3 days. 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
[2022-06-06 10:03] LABS: Alanine Aminotransferase 11 U/L (0-41); Albumin Level 1.9 g/dL (3.5-5.2); Alkaline Phosphatase 112 U/L (40-130); Blood Urea Nitrogen 5 mg/dL (8-23); Calcium 7.3 mg/dL (8.5-10.5); Carbon Dioxide 24 mmol/L (22-29); Chloride 104 mmol/L (98-107); Globulin 2.9 g/dL (1.3-4.6); Glucose 62 mg/dL (65-115); Osmolality Calculated 291 mOsm/kg (285-295); Sodium 143 mmol/L (136-145); Total Bilirubin 0.2 mg/dL (0.15-1.2); Total Protein 4.8 g/dL (6.6-8.7)
[2022-06-06 10:04] LABS: Anion Gap 17.8 (5-19); Aspartate Amino Transferase 26 U/L (0-40); Potassium 2.8 mmol/L (3.5-5.1)
[2022-06-06] MEDS: potassium chloride oral liq 20 mEq/15 mL UDC 40 MEQ PO (10:26)
[2022-06-06 10:32] VITALS: BP 96/60; PULSE 80; RESP 14; TEMP 36.3; O2SAT 100
[2022-06-06 10:43] LABS: Digoxin 1.3 ng/mL (0.6-1.2)
[2022-06-06 10:44] LABS: Add Urine Microscopic? YES; Bilirubin Urine Neg (Negative); Blood Urine 3+ (Negative); Glucose Urine UA Norm (Normal); Ketones Urine 1+ (Negative); Leukocyte Esterase Urine Negative (Negative); Nitrate Urine Negative (Negative); Protein Urine 1+ (Negative); RBC Urine TOO NUMEROUS TO CNT /hpf (0-2); Specific Gravity, Urine 1.015 (1.005-1.030); Urine Appearance Bloody (CLEAR); Urine Color Red (Yellow); Urobilinogen Urine Norm (Negative); pH Urine 5 (5-7)
[2022-06-06 10:45] LABS: Add Urine Culture? Yes; Bacteria Urine 3+ /hpf
[2022-06-06 10:48] LABS: Lactic Sepsis W/Reflex 1.7 mmol/L (0.5-2.2)
[2022-06-06 10:50] LABS: Cortisol Random 15.47 ug/dL (2.47-19.5)
--- NOTE | 2022-06-06 11:01 | ECG_ITS ---
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 Measurements Intervals [place] Rate: 74 P: 93 [place]: 147 QRS: 79 QRSD: 85 T: 38 QT: 329 QTc: 366 Interpretive Statements SINUS RHYTHM LOW QRS VOLTAGE [QRS DEFLECTION < 0.5/1.0 mV IN LIMB/CHEST LEADS] ANTEROSEPTAL MYOCARDIAL INFARCTION , OF INDETERMINATE AGE [40+ ms Q WAVE IN V1-V4] Compared to ECG 06/01/2022 08:55:44 Low QRS voltage now present Indeterminate axis no longer present Left posterior fascicular block no longer present Myocardial infarct finding still present Electronically Signed On 06-07-2022 0:02:12 MAT GAUGER by Sada Fay M.D. [id number]
--- NOTE | 2022-06-06 11:12 | CT_ITS ---
WS: [id number] CTA OF THE CHEST WITH PULMONARY EMBOLISM PROTOCOL TECHNIQUE: High-resolution contrast enhanced CTA of the chest with coronal and sagittal reformatted i mages with pulmonary embolism protocol. MIP images are also reviewed. CLINICAL INFORMATION: new L pleueal effusion, pharyngeal CA COMPARISON: None. DLP: 332.[address] scans at [facility] use at least one of these dose optimization techniques: automated e xposure control; mA and/or kV adjustment per patient size (includes targeted exams where dose is matc hed to clinical indication); or iterative reconstruction. FINDINGS: Proximal main pulmonary arteries are normal. Normal segmental and subsegmental pulmonary arteries. No evidence of pulmonary embolus. Small pericardial effusion. Small LEFT pleural effusion with compressive atelectasis LEFT lower lobe laterally and involving the lingula with a few air bronchograms. Recommend correlation for pneumonia. RIGHT lung is well aerated. Normal caliber thoracic aorta. Aortic calcification. No mediastinal or h ilar lymphadenopathy. No axillary lymphadenopathy. RIGHT Port-A-Cath with tip in the SVC. Small esophageal hiatal hernia. Prior postoperative changes involving the body of the stomach. Adrena l glands are normal. Fatty atrophy of the pancreas. Splenic granulomas. Hypertrophic changes thoracic spine. Chronic LEFT lower lobe rib fracture with callus formation. CT/CT angio chest PE protcl [id number] IMPRESSION: 1. No evidence of pulmonary embolus. 2. Small LEFT pleural effusion with volume loss LEFT lower lobe. Compressive a telectasis with a few air bronchograms in the lingula and LEFT lower lobe. Sahil mmend correlation for pneumonia. 3. Small pericardial effusion. 4. Small esophageal hiatal hernia.
--- NOTE | 2022-06-06 11:12 | CT_ITS ---
WS: [id number] CT ABDOMEN PELVIS TECHNIQUE: Noncontrast CT of the abdomen and pelvis with coronal and sagittal reformatted images. CLINICAL INFORMATION: flank pain COMPARISON: None. DLP: 401.[address] scans at [facility] use at least one of these dose optimization techniques: automated e xposure control; mA and/or kV adjustment per patient size (includes targeted exams where dose is matc hed to clinical indication); or iterative reconstruction. FINDINGS: Small esophageal hiatal hernia. Small pericardial effusion. Adrenal glands are normal. Prior postoper ative changes body of the stomach. Small LEFT pleural effusion with compressive atelectasis LEFT lowe r lobe. Chronic LEFT lower rib fracture with callus formation. Sludge in the gallbladder. Adrenal glands are normal. No hydronephrosis in either kidney. No obstructing renal or ureteral calcu li. Fatty atrophy of the pancreas. Splenic granulomas. Normal caliber abdominal aorta. Mild aortic ca lcification. Prominent prostate with indentation on the bladder. Prostate measures 3.6 x 3.4 CM. Sigmoid diverticulosis. No evidence of acute diverticulitis. Diffuse body wall anasarca. Normal appen evelyn in the RIGHT lower quadrant. Mild spondylitic changes lumbar spine. CT/CT kidney stone [id number] IMPRESSION: 1. No obstructing renal or ureteral calculi.
[2022-06-06 12:00] VITALS: BP 102/61; PULSE 76; RESP 18; O2SAT 92
[2022-06-06] MEDS: iohexol 350 mg/mL 500 mL Btl (per mL) IV (12:12)
[2022-06-06 13:50] LABS: Creatine Phosphokinase 37 U/L (39-308)
[2022-06-06 14:30] VITALS: BP 107/59; PULSE 75; RESP 14; O2SAT 96
--- NOTE | 2022-06-06 15:14 | P.CONIM_ITS ---
Providers/Reason For Consult Consulting Physician/Specialty*: Frase/Hosptialist Reason for Consult*: Admission Requesting Physician: Dr Mccauley; Dr Justice Primary Care Provider: Katrina Gaytan MD History of Present Illness History of Present Illness Chacorta Siegel is a 66 year old male who was sent to the emergency room from the oncology clinic. He presented there with weakness, dizziness and not feeling well. He was found to have hypotension. This has been a recurrent issue lately. He has been seen 3 times this month now with similar presentation. Each time he has received fluids and clinically felt better. On May 29 he was diagnosed with cystitis secondary to hematuria. He was started on Cipro and and has a couple more days left of that 10-day course. Blood and urine cultures from that day were unremarkable. No significant vomiting or other GI losses reported. 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 He recently received treatment for some c andidal mucositis. Says his swallowing is better. His skin is doing better. He has poor oral intake. In talking with him he mainly subsists on various types of clear broth. Does not drink much water nor consume much of a nutritional supplement a day. May be a half a can at most. He has continued to lose weight. He does get dizzy with position changes. He has gotten to the point that he spends most of his time lying down particularly on his left side. He denies chest pain. He has not had significant cough or upper respiratory symptoms. He has had significant swelling in his right upper extremity and was diagnosed via ultrasound with a DVT extending from jugular to axillary and other veins of the right upper extremity. He has a Port-A-Cath in his right upper chest. He is chronically on Eliquis due to a history of tachybradycardia syndrome and has been compliant with his anticoagulation. No reports of any fever. Lactic acid has been checked and is normal at 1.7. Back on May 29 it had been 2.9. He has a normal white count and normal differential. He has continued to have gross hematuria. No clots have been noted. He was also found to have hypokalemia in the emergency room with potassium at 2.8. He received some potassium replacement and fluids and overall is feeling better. With repeated visits to oncology clinic and multiple emergency room visits over the last 10 days, request was made for admission. Given the presence of gross hematuria, acute extensive DVT in the right upper extremity, need for anticoagulation and hemoglobin level at 9, known Port-A-Cath on the same side as the DVT, recommendation was for admission to transition to heparin based anticoagulation, monitoring of blood counts, consultation regarding Port-A-Cath removal, evaluation of hematuria and IV fluids plus electrolyte replacement and other care as needed. After discussing options, patient did not wish to be admitted and instead preferred attempting management on the outpatient basis with plans as I discussed with him and as are noted below. Review of Systems Narrative: As per HPI Medications/Allergies Home Medications Medication Instructions Recorded Confirmed Last Taken Type albuterol sulfate 90 mcg/actuation 2 inh inhalation Q4H PRN shortness 11/30/21 06/06/22 03/06/22 Rx aerosol inhaler of breath or wheezing #18 grams cyanocobalamin (vitamin B-12) 1,000 mcg PO QAM 01/25/22 06/06/22 06/06/22 History 1,000 mcg tablet (Vitamin B-12) mometasone-formoterol HFA 200 2 puff inhalation BID 01/25/22 06/06/22 05/29/22 History mcg-5 mcg/actuation aerosol inhaler polyethylene glycol 3350 17 gram 17 g PO DAILY PRN Constipation 01/25/22 06/06/22 Unknown History oral powder packet (Miralax) rosuvastatin 20 mg tablet (Crestor) 10 mg PO QAM 01/25/22 06/06/22 06/06/22 History tiotropium bromide 2.5 2 inh inhalation QAM 01/25/22 06/06/22 06/06/22 History mcg/actuation mist for inhalation (Spiriva Respimat) lidocaine HCl 2 % mucosal solution 5 ml mucous membrane Q6H PRN Pain 02/22/22 06/06/22 Unknown Rx (Lidocaine Viscous) #100 mL acetaminophen 500 mg tablet 1,000 mg PO BID 03/06/22 06/06/22 06/01/22 History albuterol sulfate 2.5 mg/3 mL 2.5 mg inhalation Q6H PRN 03/20/22 06/06/22 Unknown History (0.083 %) solution for nebulization Shortness Of Breath aspirin 81 mg tablet,delayed 81 mg PO QAM 03/20/22 06/06/22 06/06/22 History release cholecalciferol (vitamin D3) 25 25 mcg PO QPM 03/20/22 06/06/22 06/05/22 History mcg (1,000 unit) tablet (Vitamin D3) guaifenesin 600 mg tablet, 600 mg PO BID 05/29/22 06/06/22 06/06/22 History extended release 12 hr (Mucinex) ondansetron HCl 4 mg tablet 4 mg PO Q6H PRN nausea and 05/29/22 06/06/22 Unknown Rx vomiting #20 tabs promethazine 25 mg tablet 25 mg PO Q6H PRN nausea and 06/01/22 06/06/22 Unknown Rx vomiting #20 tabs digoxin 125 mcg (0.125 mg) tablet 125 mcg PO .QOD #30 tabs 06/06/22 06/06/22 05/31/22 Rx 125 mcg enoxaparin 60 mg/0.6 mL 60 mg (0.6 mL) SUBCUT Q12H DVT 30 06/06/22 Unknown Rx subcutaneous syringe (Lovenox) days #36 mL potassium chloride 20 mEq 20 meq PO BID #6 tabs 06/06/22 Unknown Rx tablet,extended release Allergies Allergy/AdvReac Type Severity Reaction Status Date / Time No Known Allergies Allergy Verified 05/29/22 11:25 PFSH Acute PFSH: Medical History (Updated 06/06/22 @ 16:17 by Melony White MD) COPD (chronic obstructive pulmonary disease) Coronary artery disease Deep vein thrombosis (DVT) of axillary vein of right upper extremity Diabetes mellitus Elevated PSA Variable levels when checked over time, high and low, has seen Dr Lincoln, not evaluating further at this time as noted per Urology clinic notes Hyperlipidemia Hypertension GIDEON (obstructive sleep apnea) Presence of other vascular implants and grafts PowerPort left subclavian Dr. Mead 03/07/2022 Squamous cell carcinoma of right tonsil Treated with cisplatin (last dose 05/09/22) and radiation (last treatment 05/24/22); Follows with Dr Justice. Stroke Tachycardia-bradycardia Surgical History (Updated 06/06/22 @ 15:36 by Melony White MD) History of heart artery stent 1996 History of percutaneous endoscopic gastrostomy With subsequent removal due to leakage and perforation History of surgery on arm History of surgery on lower extremity Family History Mother Cancer lung Father Stroke Sister Cancer lung Other Bleeding disorder Clotting disorder Diabetes Hyperlipidemia Social History (Updated 06/06/22 @ 15:37 by Melony White MD) Smoking and tobacco status: current every day smoker (1 ppd, smoked since 1971) cigarettes Packs smoked per day: 1.5 Alcohol intake: never Substance/Drug Use: never Lives independently: Yes Household members: family Marital status: Current occupational status: retired Vitals/I&O/Wt Last Vital Signs Temp 97.4 F L 06/06/22 10:32 Pulse 75 06/06/22 14:30 Resp 14 06/06/22 14:30 BP 107/59 06/06/22 14:30 Pulse Ox 96 06/06/22 14:30 O2 Del Method 06/06/22 14:30 06/06/22 06/06/22 06/06/22 06:59 14:59 22:59 Intake Total 1999 Balance 1999 Physical Exam Narrative: Patient with chronic ill appearance. Cachectic most notable in the face. Anticipated skin discoloration in the neck area but nothing appears acutely inflamed. Right upper extremity with significant edema much more than other extremities which are also edematous, upper extremities more so than lower. Capillary refill intact at fingertips of both upper extremities. Multiple sores in different stages of healing to upper extremities. Port-A-Cath site intact right upper chest. Some bruising to both arms. Decreased breath sounds in the left. Predominantly lies on the left. Abdomen with body wall edema. Positive bowel sounds. Speech is clear, generally weak but moves all extremities. Data 06/06/22 09:22 06/06/22 09:22 Other Labs: Radiology Impressions Chest X-Ray 06/06/22 09:11 IMPRESSION: Left lower lobe pneumonia with a small pleural effusion. Abdomen/Pelvis CT 06/06/22 11:12 IMPRESSION: 1. No obstructing renal or ureteral calculi. Chest CTA 06/06/22 11:12 IMPRESSION: 1. No evidence of pulmonary embolus. 2. Small LEFT pleural effusion with volume loss LEFT lower lobe. Compressive atelectasis with a few air bronchograms in the lingula and LEFT lower lobe. Recommend correlation for pneumonia. 3. Small pericardial effusion. 4. Small esophageal hiatal hernia. Laboratory Results WBC 5.9 10^3/uL (4.0-10.0) 06/06/22 09: RBC 2.96 10^6/uL (4.1-5.3) L 06/06/22 09:22 Hgb 9.0 g/dL (11.7-16.6) L 06/06/22:22 Hct 28.2 % (42.0-52.0) L 06/06/22 09:22 MCV 95.3 fl (80-94) H 06/06/22 09:22 MCH 30.4 pg (28.0-34.0) 06/06/22: MCHC 31.9 g/dL (30.0-36.0) 06/06/22 09: RDW 20.6 % (12.1-15.1) H 06/06/22 09:22 Plt Count 158 10^3/cmm (130-400) 06/06/22: MPV 9.4 fL (7.4-10.4) 06/06/22 09:22 Neut % (Auto) 71.9 % 06/06/22: Lymph % (Auto) 14.5 % 06/06/22:22 [place] % (Auto) 9.1 % 06/06/22 09:22 Eos % (Auto) 0.7 % 06/06/22 09:22 Baso % (Auto) 0.3 % 06/06/22: Neut # (Auto) 4.25 10^3/uL (1.8-7.7) 06/06/22 09:22 Lymph # (Auto) 0.9 10^3/uL (0.8-4.8) 06/06/22:22 [place] # (Auto) 0.5 10^3/uL (0.2-0.9) 06/06/22 09:22 Eos # (Auto) 0.0 10^3/uL (0.0-0.8) 06/06/22 09:22 Baso # (Auto) 0.0 10^3/uL (0.0-0.1) 06/06/22 09:22 Nucleated RBC % (auto) 0 % 06/06/22 09:22 Nucleated RBCs # 0.0 /100WBC 06/06/22 09:22 Sodium 143 mmol/L (136-145) 06/06/22 09:22 Potassium 2.8 mmol/L (3.5-5.1) L* 06/06/22 09:22 Chloride 104 mmol/L (98-107) 06/06/22 09:22 Carbon Dioxide 24 mmol/L (22-29) 06/06/22 09:22 Anion Gap 17.8 (5-19) 06/06/22 09:22 BUN 5 mg/dL (8-23) L 06/06/22 09:22 Creatinine 0.8 mg/dL (0.7-1.2) 06/06/22 09:22 GFR Calculation 97.0 mL/min (90-130) 06/06/22 09:22 Glucose 62 mg/dL (65-115) L 06/06/22 09:22 Calculated Osmolality 291 mOsm/kg (285-295) 06/06/22 09:22 Lactic Acid 1.7 mmol/L (0.5-2.2) 06/06/22 09:22 Calcium 7.3 mg/dL (8.5-10.5) L 06/06/22 09:22 Total Bilirubin 0.2 mg/dL (0.15-1.2) 06/06/22 09:22 AST 26 U/L (0-40) 06/06/22 09:22 ALT 11 U/L (0-41) 06/06/22 09:22 Alkaline Phosphatase 112 U/L (40-130) 06/06/22 09:22 Creatine Kinase 37 U/L (39-308) L 06/06/22 09:22 Total Protein 4.8 g/dL (6.6-8.7) L 06/06/22 09:22 Albumin 1.9 g/dL (3.5-5.2) L 06/06/22 09:22 Globulin 2.9 g/dL (1.3-4.6) 06/06/22 09:22 Random Cortisol 15.47 ug/dL (2.47-19.5) 06/06/22 09:22 Urine Color Red (Yellow) 06/06/22 10:30 Urine Appearance Bloody (CLEAR) A 06/06/22 10:30 Urine pH 5 (5-7) 06/06/22 10:30 Ur Specific [place] 1.015 (1.005-1.030) 06/06/22 10:30 Urine Protein 1+ (Negative) H 06/06/22 10:30 Urine Glucose (UA) Norm (Normal) 06/06/22 10:30 Urine Ketones 1+ (Negative) H 06/06/22 10:30 Urine Blood 3+ (Negative) H 06/06/22 10:30 Urine Nitrate Negative (Negative) 06/06/22 10:30 Urine Bilirubin Neg (Negative) 06/06/22 10:30 Urine Urobilinogen Norm mg/dL (Negative) 06/06/22 10:30 Ur Leukocyte Esterase Negative (Negative) 06/06/22 10:30 Urine RBC Too numerous to cnt /hpf (0-2) H 06/06/22 10:30 Urine WBC None /hpf (0-5) 06/06/22 10:30 Ur Squamous Epith Cells None /hpf (0-5) 06/06/22 10:30 Amorphous Sediment Not Reportable 06/06/22 10:30 Urine Bacteria 3+ /hpf (NONE) H 06/06/22 10:30 Digoxin 1.3 ng/mL (0.6-1.2) H 06/06/22 09:22 Micro: Microbiology 06/06/22 09:24 Blood Culture - Preliminary Blood SPECIMEN COLLECTED 06/06/22 09:22 Blood Culture - Preliminary Blood SPECIMEN COLLECTED Other data: MICRO FROM 05/29/22 ED visit Spec #: [id number] Jose: 05/29/22 Status: COMP Req #: [id number] Recd: 05/29/[address]: Roberto Mccauley DO Src: Urine CC SpDesc: Ordered: Procedure Result Verified Site Urine Culture Final 05/31/22-1000 NO GROWTH ON DAY 2 Urine Culture Preliminary (changed) 05/30/22-948 NO GROWTH AT 18-24 HOURS Spec #: [id number] Jose: 05/29/22 Status: COMP Req #: [id number] Recd: 05/29/[address]: Roberto Mccauley DO Src: Blood SpDesc: Ordered: Bcult Procedure Result Verified Site Blood Culture Final 06/03/22 NO GROWTH AFTER 5 DAYS Blood Culture Preliminary (changed) 05/30/22 NEGATIVE TO DATE Blood Culture Preliminary (changed) 05/29/22 SPECIMEN COLLECTED A&P Assessment and plan (1) Hypotension: Recurrent issue of late in someone who has a history of hypertension in past. Appears to respond to fluid administration when he presents. Cortisol okay. Clinically orthostatic by history as well. Has low albumin. On exam and on imaging today, has evidence of significant 3rd spacing. He has also primarily consuming salty broth and not much free water or nutritional supplements. Feels better after IVFs in the ER and blood pressure has normalized. (2) Hypoalbuminemia: Secondary to overall poor nutritional intake in the setting of known cancer being treated with chemoradiation until recently. Has minimal appetite and has not been taking nutritional supplements as recommended. He had had a PEG tube placed prior to initiation of treatment but had complications necessitating subsequent removal. Given these complications, he would like to not have a PEG tube placed again if it could be avoided, though is not completely against it should it become necessary to achieve an adequate nutritional state. Reviewed with patient and the absolute importance of getting him a minimum amount of nutritional support daily. Both asked questions and expressed understanding of the need to get a minimum of 3 to 4 cans of Ensure per day, 5-6 if he is able to tolerate it. Recommended small sips throughout the day rather than large volumes at a time and not to drink so much that he causes himself to vomit. Recommended keeping up with how much he is consuming daily. (3) Severe protein-calorie malnutrition: Secondary to above. Has been progressively worsening over the last 4 to 6 months with weight loss and poor oral intake. Consideration may need to be given to replacement of feeding tube depending on how he does with dietary recommendations described. (4) Deep vein thrombosis (DVT) of axillary vein of right upper extremity: Right upper extremity extending from jugular vein and axillary vein distally. Occlusive. Formed while patient was on Eliquis for another diagnosis and with right-sided Port-A-Cath in place. Extensive right upper extremity edema with intact capillary refill currently though multiple sores to the right upper extremity in different stages of healing. (5) Gross hematuria: Developed the first few days of this month. No other urinary symptoms. Was started on 10-day course of Cipro for cystitis on 05/29/2022. Blood and urine cultures from that date were negative. Remains on treatment. No clots have been noted but grossly bloody. Had been on cisplatin but last dose was right at a month ago. Never had gross hematuria previously. Has follow-up with Dr. Lincoln for elevated or rather variable PSA levels over time. Noncontrasted imaging did not show any presence of stones. Prostate was noted to be enlarged which is not new from what I have gathered reviewing the chart. Not really able to discern significant change and grossly bloody urine since onset. (6) Chronic anticoagulation: Has chronically been on Eliquis due to a history of tachybradycardia syndrome. Reports compliance with Eliquis therefore development of DVT represents treatment failure in the setting of known malignancy, treatment for malignancy and with implanted Port-A-Cath on the same side. Explained to him that cancer in and of itself as well as implanted devices can increase risk of development of blood clots. Reviewed with patient and his option to change to Lovenox. Patient recalls receiving when he was in the hospital. We talked about every 12 hours shots twice a day that he or his family would need to administer routinely. While his does not feel comfortable obligating herself to providing the injections, patient does have another family member that he feels confident will be able to help out. Both were given an opportunity to ask questions about medication. (7) Tachycardia-bradycardia: Follows with Dr. Salomon on an outpatient basis. Event monitoring did not show any evidence of atrial fibrillation or flutter. He was started on digoxin and March 2022. Today with evidence of digoxin toxicity just above normal range at 1.3. Could be a contributing factor to lack of oral intake and presenting symptoms. Review of vital signs over time shows that prior to initiation of digoxin he had significant tachycardia at times. 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 Last dose of cisplatin was administered on May 09 and last course of radiation therapy on May 24. By patient's and his 's understanding the cancer is gone after treatment. Follows with Dr. Justice outpatient. Has impacted his ability to swallow but reports that he has been doing better from that standpoint with pills since completing therapy. Recently treated for candidal mucositis with a round of Diflucan. (9) Presence of other vascular implants and grafts: Port-A-Cath in place right upper chest on same side as where DVT has developed in the right upper extremity. Was placed by Dr. Mead several months ago prior to onset of chemoradiation. (10) Diabetes mellitus: Type II, [id number], without known complications. Has been on metf ormin only. Review of recent blood sugars shows that they have been in the range of 62-151 going back several months. I do not have a current A1c but my understanding is this has been managed at the [place] [facility]. Currently right now I believe the potential risk of GI symptoms (making it possibly more challenging for him to get appropriate oral intake) associated with metformin outweigh the potential benefits at this time. Can be reevaluated on an ongoing basis. (11) Cystitis: Currently on Cipro for presumptive diagnosis of cystitis made on 05/29/2022 seco ndary to development of gross hematuria. Urine and blood cultures from that date remain negative. Patient has a couple of more days left of the course of Cipro. (12) Hypokalemia: Potassium 2.8. Received potassium supplementation in the emergency room. Has h ad intermittently for several months. Denies GI symptoms currently to account for losses. Review of medications shows albuterol which she has not been using excessively. No diuretics. Should start to see less of an impact from chemotherapy as he gets further out. Do not have magnesium and phosphorus levels today. Plan Patient was offered yet declined admission to the hospital. Primary concern for admission was gross hematuria in the setting of a known DVT and with Port-A-Cath in place. Overall I think poor nutritional intake and third spacing/fluid retention related to hypoalbuminemia and increased salt intake from broths has been causing fluctuations in his intravascular volume leading to episodes of orthostasis with hypotension. Digoxin level is mildly toxic today which could also be contributing to the symptoms he experiences. There was concern about possibility of pneumonia noted on CT imaging and from the ER however after talking with patient he spends most of his time lying on his left side. I suspect what is being noted on imaging is some atelectasis from this and the small effusion that has accumulated related to volume status. No symptoms to suggest pneumonia. Hypokalemia again present. Initially hypotensive, but has improved and clinically feels better after hydration. Given that patient is not currently wanting to be admitted to the hospital my recommendations for outpatient management are as follows: Regular intake of free water Limit salty broths Minimum of 3 to 4 cans of Ensure daily Close monitoring of nutritional status and oral intake Consideration may have to be given to PEG tube placement if he is not able to increase his outtake as time away from chemoradiation improves Status post recent treatment with Diflucan Continue and complete course of Cipro that was prescribed for cystitis Recommend follow-up with Dr. Lincoln as per his clinic, I reviewed the case with Dr. Lincoln and he felt that patient would benefit from cystoscopy given new development of gross hematuria without identified cause given need for anticoagulation Stop Eliquis Initiate Lovenox 1 mg per kg every 12 hours, rounding down to 60 mg every 12 hours based on current weight Regular monitoring of hemoglobin for decline that would indicate need to intervene Consideration needs to be given to port removal given development of DVT on the same side; decision on replacement as per oncology recommendations Port removal will necessitate holding of anticoagulation Hold digoxin for 2 to 3 days and then resume it every other day dosing 125 mcg with follow-up digoxin level in a week Recommend CBC and BMP in 3 to 4 days to follow-up on potassium level and hemoglobin as well as renal function and glucose. Recommend checking magnesium and potassium levels with follow-up blood draws to ensure appropriate levels that may impact potassium retention Hold metformin currently until nutritional status has improved or clear evidence of need to resume antidiabetic therapy Follow-up with primary care provider Dr. Katrina Gaytan within 5 to 7 days Follow-up with Dr. Justice as per oncology clinic Overall findings, concerns and plans as described above were discussed with patient and his and both were given an opportunity to ask questions Reviewed the above plans and patient's not wanting to be admitted to the hospital with Dr. Justice Above plans were reviewed with Dr. Mccauley Clinical situation was reviewed with Dr. Lincoln Old medical records were reviewed Laboratory studies both current and previous were reviewed Current medications were reviewed and changes to medications were personally reviewed with patient/ Coding Level of Care Code Acute Yacht Rigger for Chg Fwd Diagnoses Hypotension I95.9 Hypoalbuminemia E88.09 Severe protein-calorie malnutrition E43 Deep vein thrombosis (DVT) of axillary vein of right upper extremity I82.A11 Gross hematuria R31.0 Chronic anticoagulation Z79.01 Tachycardia-bradycardia I49.5 Squamous cell carcinoma of right tonsil C09.9 Presence of other vascular implants and grafts Z95.828 Diabetes mellitus E11.9 Cystitis N30.90 Hypokalemia E87.6 Time Spent (min) 85
--- NOTE | 2022-06-07 15:35 | DCPLANNER ---
Addendum entered by Pauline Franklin 06/30/22 11:38: Patient had a follow up appointment scheduled with urology - patient did attend appointment. Addendum entered by Pauline Franklin 06/13/22 13:00: Patient has a follow up appointment scheduled with urology for Sunday, June 21, 2022 at 3:[address] Lincoln. Clinic will call patient with appointment information. Original Note: transition manager had message to schedule a follow up appointment for patient with urology. transition manager sent patients information to the front office staff at urology. Patients information will be printed and reviewed. Clinic will call patient with appointment information.
== END 2022-06-06 15:25 | disposition home or self-care (01) ==
PROVIDERS: Emergency Provider Family Medicine; PCP Family Medicine
DX: I95.9 Hypotension, unspecified (principal); E88.09 Other disorders of plasma-protein metabolism, not elsewhere classified; E11.9 Type 2 diabetes mellitus without complications; R00.0 Tachycardia, unspecified; R00.1 Bradycardia, unspecified; J44.0 Chronic obstructive pulmonary disease with (acute) lower respiratory infection; J18.9 Pneumonia, unspecified organism; C09.9 Malignant neoplasm of tonsil, unspecified; Z79.82 Long term (current) use of aspirin; F17.210 Nicotine dependence, cigarettes, uncomplicated; I25.10 Atherosclerotic heart disease of native coronary artery without angina pectoris; E78.5 Hyperlipidemia, unspecified; I10 Essential (primary) hypertension; Z86.73 Personal history of transient ischemic attack (TIA), and cerebral infarction without residual deficits
CPT/HCPCS: 71045; 71275; 74176; 80053; 80162; 81001; 82533; 82550; 83605; 85025; 87040; 87086; 93005; 96360; 96361; 99285; J7030; Q9967

== ENCOUNTER 2022-06-06 22:13 | Inpatient (IN) | payer OTHER, MEDICARE, SELFPAY ==
[2022-06-06 22:18] VITALS: BP 70/51; PULSE 122; RESP 20; TEMP 36.3; O2SAT 97; BMI 19.3
--- NOTE | 2022-06-06 22:30 | XRR_ITS ---
PROCEDURE INFORMATION: Exam: XR Chest Exam date and time: 06/06/2022 10:36 PM Age: 66 years old Clinical indication: Other: Low BP SOB TECHNIQUE: Imaging protocol: Radiologic exam of the chest. Views: 1 view. COMPARISON: CR XR chest 1V portable [id number] 06/06/2022 9:29 AM FINDINGS: Tubes, catheters and devices: Right chest wall infusion port with catheter tip in the cavoatrial region. Lungs: Persistent left basilar opacity suggesting atelectasis versus pneumonia and small left pleural effusion. Pleural spaces: See Lungs finding. No pneumothorax. Heart/Mediastinum: No cardiomegaly. Bones/joints: No acute findings. XR/XR chest 1V portable [id number] IMPRESSION: Relatively stable left basilar opacity/pleural effusion as described.
--- NOTE | 2022-06-06 22:32 | ECG_ITS ---
[facility] Test Date: 2022-06-06 Pat Name: Chacorta Siegel Department: Room: Gender: Male Director Compensation: : 1955 Requested By: Sami Giron Order Number: [id number] Jannie MD: Sada Fay M.D. Measurements Intervals [place] Rate: 121 P: 56 FL: 143 QRS: 38 QRSD: 75 T: 70 QT: 330 QTc: 469 Interpretive Statements SINUS TACHYCARDIA LOW QRS VOLTAGE IN EXTREMITY LEADS [QRS DEFLECTION < 0.5 mV IN LIMB LEADS] ANTEROSEPTAL MYOCARDIAL INFARCTION , OF INDETERMINATE AGE [40+ ms Q WAVE IN V1-V4] Compared to ECG 06/06/2022 11:01:29 Sinus rhythm no longer present Myocardial infarct finding still present Electronically Signed On 06-07-2022 0:08:31 DIRECTOR OF AGRONOMY by Sada Fay M.D. [email or web address] medical [facility], [email or web address]/store/[id number] f
[2022-06-06 22:45] VITALS: BP 79/45; PULSE 106; RESP 15; O2SAT 98
[2022-06-06] MEDS: sodium chloride 0.9% 1,000 ML 999 ML IV (22:48)
[2022-06-06 22:49] LABS: Basophils % 0.4 %; Eosinophils # 0.1 10^3/uL (0.0-0.8); Eosinophils % 0.6 %; Hematocrit 30.1 % (42.0-52.0); Hemoglobin 9.4 g/dL (11.7-16.6); Lymphocytes % 11.4 %; Mean Corpuscular HGB Conc 31.2 g/dL (30.0-36.0); Mean Corpuscular Hemoglobin 30.1 pg (28.0-34.0); Mean Corpuscular Volume 96.5 fl (80-94); Mean Platelet Volume 9.4 fL (7.4-10.4); Monocytes # 0.7 10^3/uL (0.2-0.9); Monocytes % 8.5 %; Neutrophils # 6.56 10^3/uL (1.8-7.7); Neutrophils % 76.9 %; Nucleated Red Blood Cells % 0 %; Platelet Count 171 10^3/cmm (130-400); Red Blood Count 3.12 10^6/uL (4.1-5.3); Red Cell Distribution Width 21.2 % (12.1-15.1); White Blood Count 8.5 10^3/uL (4.0-10.0)
[2022-06-06 23:08] LABS: Lactate (Lactic Acid level) 1.9 mmol/L (0.5-2.2)
[2022-06-06 23:09] VITALS: BP 82/66; PULSE 96; RESP 19; O2SAT 99
[2022-06-06 23:09] LABS: Troponin(5th) Baseline 90 ng/L (0-15)
[2022-06-06] MEDS: ondansetron 2 mg/ML SDV 2 mL 4 MG IVP (23:09)
--- NOTE | 2022-06-06 23:09 | PC.NURSE ---
blood cultures x2 drawn
--- NOTE | 2022-06-06 23:14 | W.ED.DIZZY ---
HPI - Dizziness General: Chief Complaint: Dizziness Stated Complaint: low bp Time Seen by Provider: 06/06/22 22:30 Source: patient and family Mode of arrival: ambulatory Limitations: no limitations History of Present Illness: HPI Narrative: 66-year-old male who has a history of cancer he has been seen here multiple times this week for weakness dizziness and hypotension he states that he is continue to have vomiting he was seen here earlier today had IV fluids states he felt improved he is went home he has had vomiting he is hypotensive here he states his blood pressure is normally low as in the 70s when he arrived he denies any pain anywhere he states he just feels very weak and dizzy especially tries to ambulate. Associated symptoms: Reports malaise, nausea and vomiting; Denies chest pain, chills or headache(s) Review of Systems Const: Reports: fatigue and malaise; Denies: fever(s), chills, body aches or change in appetite Eyes: Denies: blurry vision or eye discomfort ENMT: Denies: throat pain or dental pain Card: Denies: chest pain Resp: Denies: dyspnea GI: Reports: nausea and vomiting; Denies: abdominal pain or diarrhea : Denies: dysuria Musc: Denies: neck pain or back pain Skin/Breast: Denies: rash Neuro: Denies: headache(s) Psych: Denies: depression Paco/Lymph: Denies: easy bruising All/Imm: Denies: urticaria PFSH ED PFSH: Medical History COPD (chronic obstructive pulmonary disease) Coronary artery disease Deep vein thrombosis (DVT) of axillary vein of right upper extremity Diabetes mellitus Elevated PSA Variable levels when checked over time, high and low, has seen Dr Lincoln, not evaluating further at this time as noted per Urology clinic notes Hyperlipidemia Hypertension GIDEON (obstructive sleep apnea) Presence of other vascular implants and grafts PowerPort left subclavian Dr. Mead 03/07/2022 Squamous cell carcinoma of right tonsil Treated with cisplatin (last dose 05/09/22) and radiation (last treatment 05/24/22); Follows with Dr Justice. Stroke Tachycardia-bradycardia Surgical History History of heart artery stent 1996 History of percutaneous endoscopic gastrostomy With subsequent removal due to leakage and perforation History of surgery on arm History of surgery on lower extremity Family History Mother Cancer lung Father Stroke Sister Cancer lung Other Bleeding disorder Clotting disorder Diabetes Hyperlipidemia Social History Smoking and tobacco status: current every day smoker (1 ppd, smoked since 1971) cigarettes Packs smoked per day: 1.5 Alcohol intake: never Lives independently: Yes Household members: family Marital status: Current occupational status: retired Physical Exam Const: COMMON NORMALS: patient oriented x3 GENERAL APPEARANCE: ill appearing HENMT: COMMON NORMALS: normocephalic and atraumatic HEAD & SCALP: normocephalic and atraumatic Eye: COMMON NORMALS: Equal, round and reactive pupils present and EOMs intact bilaterally PUPIL: Yes Equal, round and reactive pupils present Neck/C-Spine: COMMON NORMALS: full ROM and supple Chest: COMMONS NORMALS: normal inspection of the chest and normal palpation of entire chest wall Resp: COMMON NORMALS: normal respiratory effort, No retractions, No use of accessory muscles and clear to auscultation bilaterally AUSCULTATION: clear to auscultation bilaterally Cardio: COMMON NORMALS: regular rate, regular rhythm and No murmurs present (Cardio) RATE: regular rate RHYTHM: regular rhythm GI: COMMON NORMALS: Normal to inspection, nondistended, normoactive bowel sounds present, Soft to palpation, non-tender and no masses PALPATION: Yes Soft to palpation Extremity: COMMON NORMALS: normal to inspection and full ROM Neuro: COMMON NORMALS: patient oriented x3, moves all extremities and no focal motor deficits Psych: COMMON NORMALS: mental status grossly normal, Normal thought process present and cooperative THOUGHT PROCESS: Normal thought process present Skin: COMMON NORMALS: no rashes or lesions noted and no wounds GENERAL SKIN EXAM: no rashes or lesions noted Course Vital Signs: Vital signs: Vital Signs Temperature 97.4 F L 06/06/22 22:18 Pulse Rate 96 06/06/22 23:09 Respiratory Rate 19 H 06/06/22 23:09 Blood Pressure 82/66 06/06/22 23:09 Pulse Oximetry 99 06/06/22 23:09 Oxygen Delivery Me thod 06/06/22 23:09 MDM - Dizziness Medical Decision Making Patient presents here with vomiting likely causing his hypokalemia he was hypotensive when he first arrived his blood pressure here is much improved after IV fluids we will admit for observation due to his hypokalemia along with vomiting and weakness. Patient has no signs of infection. Lab Data 06/06/22 22:40 06/06/22 22:40 Radiology Impressions Chest X-Ray 06/06/22 22:30 IMPRESSION: Relatively stable left basilar opacity/pleural effusion as described. Laboratory Results WBC 8.5 10^3/uL (4.0-10.0) 06/06/22 22:40 RBC 3.12 10^6/uL (4.1-5.3) L 06/06/22 22:40 Hgb 9.4 g/dL (11.7-16.6) L 06/06/22 22:40 Hct 30.1 % (42.0-52.0) L 06/06/22 22:40 MCV 96.5 fl (80-94) H 06/06/22 22:40 MCH 30.1 pg (28.0-34.0) 06/06/22 22:40 MCHC 31.2 g/dL (30.0-36.0) 06/06/22 22:40 RDW 21.2 % (12.1-15.1) H 06/06/22 22:40 Plt Count 171 10^3/cmm (130-400) 06/06/22 22:40 MPV 9.4 fL (7.4-10.4) 06/06/22 22:40 Neut % (Auto) 76.9 % 06/06/22 22:40 Lymph % (Auto) 11.4 % 06/06/22 22:40 [place] % (Auto) 8.5 % 06/06/22 22:40 Eos % (Auto) 0.6 % 06/06/22 22:40 Baso % (Auto) 0.4 % 06/06/22 22:40 Neut # (Auto) 6.56 10^3/uL (1.8-7.7) 06/06/22 22:40 Lymph # (Auto) 1.0 10^3/uL (0.8-4.8) 06/06/22 22:40 [place] # (Auto) 0.7 10^3/uL (0.2-0.9) 06/06/22 22:40 Eos # (Auto) 0.1 10^3/uL (0.0-0.8) 06/06/22 22:40 Baso # (Auto) 0.0 10^3/uL (0.0-0.1) 06/06/22 22:40 Nucleated RBC % (auto) 0 % 06/06/22 22:40 Nucleated RBCs # 0.0 /100WBC 06/06/22 22:40 Sodium 141 mmol/L (136-145) 06/06/22 22:40 Potassium 2.6 mmol/L (3.5-5.1) L* 06/06/22 22:40 Chloride 105 mmol/L (98-107) 06/06/22 22:40 Carbon Dioxide 23 mmol/L (22-29) 06/06/22 22:40 Anion Gap 15.6 (5-19) 06/06/22 22:40 BUN 4 mg/dL (8-23) L 06/06/22 22:40 Creatinine 0.9 mg/dL (0.7-1.2) 06/06/22 22:40 GFR Calculation 84.7 mL/min (90-130) L 06/06/22 22:40 Glucose 92 mg/dL (65-115) 06/06/22 22:40 Calculated Osmolality 289 mOsm/kg (285-295) 06/06/22 22:40 Lactate 1.9 mmol/L (0.5-2.2) 06/06/22 22:40 Calcium 7.0 mg/dL (8.5-10.5) L 06/06/22 22:40 Total Bilirubin 0.2 mg/dL (0.15-1.2) 06/06/22 22:40 AST 30 U/L (0-40) 06/06/22 22:40 ALT 13 U/L (0-41) 06/06/22 22:40 Alkaline Phosphatase 135 U/L (40-130) H 06/06/22 22:40 Troponin T Baseline 90 ng/L (0-15) H 06/06/22 22:40 NT-Pro-B Natriuret Pep 2171 pg/mL (0-125) H 12/13/22 22:40 Total Protein 4.9 g/dL (6.6-8.7) L 06/06/22 22:40 Albumin 2.0 g/dL (3.5-5.2) L 06/06/22 22:40 Globulin 2.9 g/dL (1.3-4.6) 06/06/22 22:40 EKG Data EKG 1: I personally reviewed and interpreted this EKG as follows: EKG interpretation date: 06/06/22 EKG interpretation time: 22:24 Interpretation: sinus tach hr [address] or t wave abnormalities qrs 75 qtc 402 Discharge Plan Discharge Patient Disposition: Placed in Observation Clinical Impression: Hypokalemia, Hypotension, Vomiting Condition: Stable Prescriptions: No Action Lidocaine Viscous 2 % solution 5 ml mucous membrane Q6H PRN (Reason: Pain) Qty: 100 0RF albuterol sulfate 90 mcg/actuation HFA aerosol inhaler 2 inh INHALATION Q4H PRN (Reason: shortness of breath or wheezing) Qty: 18 0RF acetaminophen 500 mg Tablet 1,000 mg PO BID albuterol sulfate 2.5 mg /3 mL (0.083 %) Solution For Nebulization 2.5 mg INHALATION Q6H PRN (Reason: Shortness Of Breath) aspirin 81 mg Tablet,Delayed Release (Dr/Ec) 81 mg PO QAM cholecalciferol (vitamin D3) [Vitamin D3] 25 mcg (1,000 unit) Tablet 25 mcg PO QPM promethazine 25 mg tablet 25 mg PO Q6H PRN (Reason: nausea and vomiting) Qty: 20 0RF potassium chloride 20 mEq tablet extended release 20 meq PO BID Qty: 6 0RF digoxin 125 mcg (0.125 mg) tablet 125 mcg PO .QOD Qty: 30 0RF Lovenox 60 mg/0.6 mL syringe 60 mg SUBCUT Q12H 30 Days Qty: 36 0RF Rx Instructions: Stop Eliquis cyanocobalamin (vitamin B-12) [Vitamin B-12] 1,000 mcg Tablet 1,000 mcg PO QAM rosuvastatin [Crestor] 20 mg Tablet 10 mg PO QAM Spiriva Respimat 2.5 mcg/actuation Mist 2 inh INHALATION QAM mometasone-formoterol 200-5 mcg/actuation Hfa Aerosol Inhaler 2 puff INHALATION BID polyethylene glycol 3350 [Miralax] 17 gram Powder In Packet 17 g PO DAILY PRN (Reason: Constipation) guaifenesin [Mucinex] 600 mg Tablet Extended Release 12hr 600 mg PO BID ondansetron HCl 4 mg tablet 4 mg PO Q6H PRN (Reason: nausea and vomiting) Qty: 20 0RF Referrals: Katrina Gaytan MD [Primary Care Provider] - Coding Level of Care Code ED Hogshead Filler for Chg Fwd Exam Comprehensive
[2022-06-06 23:16] LABS: Alanine Aminotransferase 13 U/L (0-41); Alkaline Phosphatase 135 U/L (40-130); Anion Gap 15.6 (5-19); Aspartate Amino Transferase 30 U/L (0-40); Blood Urea Nitrogen 4 mg/dL (8-23); Carbon Dioxide 23 mmol/L (22-29); Chloride 105 mmol/L (98-107); Globulin 2.9 g/dL (1.3-4.6); Glomerular Filtration Rate 84.7 mL/min (90-130); Glucose 92 mg/dL (65-115); NT Pro B Type Natriuretic Pept 2171 pg/mL (0-125); Osmolality Calculated 289 mOsm/kg (285-295); Sodium 141 mmol/L (136-145); Total Bilirubin 0.2 mg/dL (0.15-1.2); Total Protein 4.9 g/dL (6.6-8.7)
[2022-06-06 23:19] LABS: Potassium 2.6 mmol/L (3.5-5.1)
--- NOTE | 2022-06-06 23:38 | P.HP_ITS ---
Providers/Chief Complaint Primary Care Provider: Katrina Gaytan MD Chief Complaint: low bp History of Present Illness Luisito Siegel is a 66 year old male who was sent from the oncology clinic this morning when he was a physician in Dr. White for hypotension and hypovolemia patient refused to get admitted. He returned because of persistent hypotension and worsening of his fatigue. He carries history of squamous cell carcinoma of tonsils status post cisplatin course and radiation therapy May 24. He has been treated for candidiasis and mucositis. His p.o. intake is very poor. He drinks mostly half a can a day because of change in taste and mucositis. Endorsing orthostatic changes. Significant swelling in right upper extremity showing DVT extending from jugular to axillary and other veins of right upper extremity, Port-A-Cath in place. He is on chronic anticoagulation. In the ER he was diagnosed with hypotension, hypovolemia received 1 L normal saline bolus along 40 mEq p.o. potassium and Zofran 4 mg IV push Patient is stating that for last couple weeks he has been feeling sick which she describing a generalized fatigue and malaise shortness of breath productive cough, sputum color has been changing as well. Mucositis has improved but his appetite has not returned. He has not noticed fever. He has not noticed any silvio blood in his urine. His last dose of Eliquis was this morning in the ER when he decided to go home ER physician switched him to injectable anticoagulating agent Lovenox. The reason he came back to the hospital is because of persistent hypotension. Patient is stating that if Mediport needs to be taken out he is agreeable, he thinks he is done with his chemo and radiation therapy for now He is DNR/DNI Review of Systems 2 Const: Reports: chills, body aches and fatigue Eyes: Denies: change in vision ENMT: Denies: throat pain Card: Denies: chest pain Resp: Reports: dyspnea GI: Reports: nausea and vomiting : Denies: flank pain Musc: Reports: back pain Skin/Breast: Reports: rash and skin tenderness Neuro: Denies: headache(s) Psych: Reports: anxiety Endo: Denies: polyuria Paco/Lymph: Reports: easy bruising All/Imm: Denies: urticaria Medications/Allergies Home Medications Medication Instructions Recorded Confirmed Last Taken Type albuterol sulfate 90 mcg/actuation 2 inh inhalation Q4H PRN shortness 11/30/21 06/06/22 03/06/22 Rx aerosol inhaler of breath or wheezing #18 grams cyanocobalamin (vitamin B-12) 1,000 mcg PO QAM 01/25/22 06/06/22 06/06/22 History 1,000 mcg tablet (Vitamin B-12) mometasone-formoterol HFA 200 2 puff inhalation BID 01/25/22 06/06/22 05/29/22 History mcg-5 mcg/actuation aerosol inhaler polyethylene glycol 3350 17 gram 17 g PO DAILY PRN Constipation 01/25/22 06/06/22 Unknown History oral powder packet (Miralax) rosuvastatin 20 mg tablet (Crestor) 10 mg PO QAM 01/25/22 06/06/22 06/06/22 History tiotropium bromide 2.5 2 inh inhalation QAM 01/25/22 06/06/22 06/06/22 History mcg/actuation mist for inhalation (Spiriva Respimat) lidocaine HCl 2 % mucosal solution 5 ml mucous membrane Q6H PRN Pain 02/22/22 06/06/22 Unknown Rx (Lidocaine Viscous) #100 mL acetaminophen 500 mg tablet 1,000 mg PO BID 03/06/22 06/06/22 06/01/22 History albuterol sulfate 2.5 mg/3 mL 2.5 mg inhalation Q6H PRN 03/20/22 06/06/22 Unknown History (0.083 %) solution for nebulization Shortness Of Breath aspirin 81 mg tablet,delayed 81 mg PO QAM 03/20/22 06/06/22 06/06/22 History release cholecalciferol (vitamin D3) 25 25 mcg PO QPM 03/20/22 06/06/22 06/05/22 History mcg (1,000 unit) tablet (Vitamin D3) guaifenesin 600 mg tablet, 600 mg PO BID 05/29/22 06/06/22 06/06/22 History extended release 12 hr (Mucinex) ondansetron HCl 4 mg tablet 4 mg PO Q6H PRN nausea and 05/29/22 06/06/22 Unknown Rx vomiting #20 tabs promethazine 25 mg tablet 25 mg PO Q6H PRN nausea and 06/01/22 06/06/22 Unknown Rx vomiting #20 tabs digoxin 125 mcg (0.125 mg) tablet 125 mcg PO .QOD #30 tabs 06/06/22 06/06/22 05/31/22 Rx 125 mcg enoxaparin 60 mg/0.6 mL 60 mg (0.6 mL) SUBCUT Q12H DVT 30 06/06/22 Unknown Rx subcutaneous syringe (Lovenox) days #36 mL potassium chloride 20 mEq 20 meq PO BID #6 tabs 06/06/22 Unknown Rx tablet,extended release Allergies Allergy/AdvReac Type Severity Reaction Status Date / Time No Known Allergies Allergy Verified 05/29/22 11:25 PFSH Acute PFSH: Medical History COPD (chronic obstructive pulmonary disease) Coronary artery disease Deep vein thrombosis (DVT) of axillary vein of right upper extremity Diabetes mellitus Elevated PSA Variable levels when checked over time, high and low, has seen Dr Lincoln, not evaluating further at this time as noted per Urology clinic notes Hyperlipidemia Hypertension GIDEON (obstructive sleep apnea) Presence of other vascular implants and grafts PowerPort left subclavian Dr. Mead 03/07/2022 Squamous cell carcinoma of right tonsil Treated with cisplatin (last dose 05/09/22) and radiation (last treatment 05/24/22); Follows with Dr Justice. Stroke Tachycardia-bradycardia Surgical History History of heart artery stent 1996 History of percutaneous endoscopic gastrostomy With subsequent removal due to leakage and perforation History of surgery on arm History of surgery on lower extremity Family History Mother Cancer lung Father Stroke Sister Cancer lung Other Bleeding disorder Clotting disorder Diabetes Hyperlipidemia Social History Smoking and tobacco status: current every day smoker (1 ppd, smoked since 1971) cigarettes Packs smoked per day: 1.5 Alcohol intake: never Lives independently: Yes Household members: family Marital status: Current occupational status: retired Vitals/I&O/Wt Last Vital Signs Temp 97.4 F L 06/06/22 22:18 Pulse 96 12/13/22 23:09 Resp 19 H 06/06/22 23:09 BP 82/66 06/06/22 23:09 Pulse Ox 99 06/06/22 23:09 O2 Del Method 06/06/22 23:09 Weight last 48 hrs Weight 54.431 kg Physical Exam Narrative: Malnourished elderly male Appears more than stated age Right arm 3+ pitting edema Abdomen distended however nontender Port-A-Cath right upper chest Petechiae bruises of extremities noted No active signs of cellulitis Multiple sores noted without signs of cellulitis S1, S2 variable Abdomen soft Oral mucosa without active ulcers Doing well on room air Data 06/06/22 22:40 06/06/22 22:40 Micro: Microbiology 06/06/22 22:40 Blood Culture - Preliminary Blood SPECIMEN COLLECTED A&P Assessment and plan (1) Hypovolemia: (2) Hypokalemia: (3) Protein calorie malnutrition: (4) Diabetes mellitus: (5) Deep vein thrombosis (DVT) of axillary vein of right upper extremity: (6) Gross hematuria: (7) Severe protein-calorie malnutrition: (8) Hypoalbuminemia: (9) Vomiting: (10) COPD (chronic obstructive pulmonary disease): Plan Left lower lobe pneumonia Small pleural effusion Currently patient is doing well on room air Immunocompromise History of esophageal hiatal hernia Small pericardial effusion noted on CTA chest No signs of PE Start broad-spectrum antibiotics No signs of leukocytosis or fever Hypovolemic, hypoalbuminemia Hypotension Responsive to IV fluids Severe protein calorie malnourishment Recurrent vomiting causing hypokalemia Start IV fluids with potassium supplement Check magnesium level Calcium is normal as compared to albumin correction Random cortisol level is normal and TSH We will give him 1 bag of albumin Right arm DVT, Port-A-Cath in place as well History of tachybradycardia syndrome Patient is on Eliquis, which can be discontinued we will start him on heparin once his hematuria resolved, for tonight I will watch him off any a nticoagulating agent because of significant hematuria, watch H&H current hemoglobin 9.4 He will need general surgery consult in the morning for replacement of Port-A-Cath in case he is still continuing his chemotherapy Patient will benefit from a palliative consult Dietitian has seen him on 03/20/2022 Digoxin level 1.3, with vomiting, discontinue digoxin for now history of tachybradycardia syndrome follows up with cardiology outpatient Please touch base with Dr. Justice in a.m. regarding safety of Port-A-Cath removal, his last Eliquis dose was on 06/06/22 in the AM, patient is waiting to get his Port-A-Cath removed if needed Holding off on anticoagulating agent tonight because of significant hematuria noted CT abdomen pelvis did not show any source of bleeding Goals of care discussed with the patient he prefers to stay DNR/DNI, at the bedside Attestations Medical Necessity Statement*: More than 2 midnights anticipated Time Spent in Patient Care: 40 Coding Level of Care Code Acute Knitting Machine Tender for Chg Fwd Diagnoses Hypovolemia E86.1 Hypokalemia E87.6 Protein calorie malnutrition E46 Diabetes mellitus E11.9 Deep vein thrombosis (DVT) of axillary vein of right upper extremity I82.A11 Gross hematuria R31.0 Severe protein-calorie malnutrition E43 Hypoalbuminemia E88.09 Vomiting R11.10 COPD (chronic obstructive pulmonary disease) J44.9
[2022-06-06 23:40] VITALS: BP 91/56; PULSE 85; RESP 17; O2SAT 94
[2022-06-06] MEDS: potassium chloride ER 20 mEq Tablet 40 MEQ PO (23:41)
[2022-06-07] VITALS (13 sets, daily range): BP systolic 93–119; BP diastolic 52–73; PULSE 74–95; RESP 16–20; TEMP 36.7–37.3; O2SAT 84–95
[2022-06-07 00:30] LABS: Procalcitonin 3.69 ng/mL (0-0.5)
--- NOTE | 2022-06-07 00:32 | ECG_ITS ---
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 [id number]
[2022-06-07] MEDS: sodium chlor 0.9% + KCl 40 mEq 40 MEQ/1,000 ML BAG 100 MEQ IV ×3 (01:42→21:02)
[2022-06-07] MEDS: albumin 12.5 gm/50 mL IV IV (01:47)
[2022-06-07] MEDS: cefepime 2,000 MG in sodium chloride 0.9% (plus) 50 ML 100 MG IV (02:03)
[2022-06-07] MEDS: piperacillin-tazobactam 3.375 GM in sodium chloride 0.9% (plus) 50 ML IV ×3 (02:41→19:46)
[2022-06-07 04:42] LABS: Basophils % 0.1 %; Eosinophils % 0.3 %; Hematocrit 23.9 % (42.0-52.0); Hemoglobin 7.3 g/dL (11.7-16.6); Lymphocytes # 0.4 10^3/uL (0.8-4.8); Mean Corpuscular HGB Conc 30.5 g/dL (30.0-36.0); Mean Corpuscular Hemoglobin 30.5 pg (28.0-34.0); Mean Platelet Volume 9.8 fL (7.4-10.4); Monocytes # 0.5 10^3/uL (0.2-0.9); Monocytes % 6.8 %; Neutrophils # 6.73 10^3/uL (1.8-7.7); Neutrophils % 86.3 %; Nucleated Red Blood Cells % 0 %; Platelet Count 128 10^3/cmm (130-400); Red Blood Count 2.39 10^6/uL (4.1-5.3); Red Cell Distribution Width 21.5 % (12.1-15.1); White Blood Count 7.8 10^3/uL (4.0-10.0)
--- NOTE | 2022-06-07 04:56 | PC.NURSE ---
Referred pt to Dr. Coronado for review of decreased hemoglobin results to 7.3 this am. Awaiting orders.
[2022-06-07 05:10] LABS: Anion Gap 13.2 (5-19); Blood Urea Nitrogen 6 mg/dL (8-23); Calcium 6.6 mg/dL (8.5-10.5); Carbon Dioxide 22 mmol/L (22-29); Chloride 109 mmol/L (98-107); Creatinine Clr Calc Pharmacy 78.1932; Glucose 85 mg/dL (65-115); Magnesium 1.3 mg/dL (1.7-2.3); Osmolality Calculated 289 mOsm/kg (285-295); Phosphorus 1.4 mg/dL (2.5-4.5); Potassium 3.2 mmol/L (3.5-5.1); Sodium 141 mmol/L (136-145)
[2022-06-07 06:03] LABS: Vitamin B12 1425 pg/mL (232-1245)
[2022-06-07 06:11] LABS: Add Urine Microscopic? YES; Bilirubin Urine Neg (Negative); Blood Urine 3+ (Negative); Glucose Urine UA Norm (Normal); Ketones Urine Negative (Negative); Leukocyte Esterase Urine Negative (Negative); Nitrate Urine Negative (Negative); Protein Urine 1+ (Negative); Urine Appearance Cloudy (CLEAR); Urine Color Brown (Yellow); Urobilinogen Urine Norm (Negative); pH Urine 5 (5-7)
[2022-06-07 06:12] LABS: Mucus Urine N /hpf; Other Crystals Urine N /hpf; RBC Urine TOO NUMEROUS TO CNT /hpf (0-2); Squamous Epithelial Cell Urine 0-4 /hpf (0-5); Uric Acid Crystals Urine N /hpf
--- NOTE | 2022-06-07 06:12 | ECG_ITS ---
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 Measurements Intervals [place] Rate: 89 P: 107 MA: 152 QRS: 83 QRSD: 86 T: 52 QT: 308 QTc: 376 Interpretive Statements SINUS RHYTHM LOW QRS VOLTAGE [QRS DEFLECTION < 0.5/1.0 mV IN LIMB/CHEST LEADS] ANTEROSEPTAL MYOCARDIAL INFARCTION , OF INDETERMINATE AGE [40+ ms Q WAVE IN V1-V4] Compared to ECG 06/07/2022 02:22:01 No significant changes Electronically Signed On 06-07-2022 18:23:48 ORTHOPHOTOGRAPHY TECHNICIAN by Sada Fay M.D. [id number]
[2022-06-07 06:13] LABS: Add Urine Culture? No
[2022-06-07 06:22] LABS: Troponin 5 6HR 78.08 ng/L (0-15)
[2022-06-07] MEDS: magnesium sulfate premix 4 GM/100 ML PREMIX IV (09:33)
[2022-06-07] MEDS: phosphorus 250 mg Tablet PO ×2 (09:41→18:10)
[2022-06-07] MEDS: vancomycin 750 MG in sodium chloride 0.9% 250 ML 250 MG IV ×2 (10:35→22:48)
--- NOTE | 2022-06-07 11:05 | CT_ITS ---
WS: [id number] CT CHEST TECHNIQUE: Noncontrast CT of the chest with coronal and sagittal reformatted images. CLINICAL INFORMATION: sob COMPARISON: 2019 DLP: 354.[address] scans at [facility] use at least one of these dose optimization techniques: automated e xposure control; mA and/or kV adjustment per patient size (includes targeted exams where dose is matc hed to clinical indication); or iterative reconstruction. FINDINGS: Small LEFT greater than RIGHT pleural effusions. Compressive atelectasis LEFT lower lobe with air bro nchograms. Small pericardial effusion. Hazy infiltrates LEFT upper lobe and LEFT lower lobe. Normal c aliber thoracic aorta. Aortic calcification. Coronary calcification. Adrenal glands are normal. Fatty atrophy of the pancrea s. RIGHT Port-A-Cath with tip in SVC. Mild thoracic kyphosis. Anterior hypertrophic changes lower thoracic spine. LEFT lower rib fractures with callus formation. CT/CT chest wo con [id number] IMPRESSION: 1. Small LEFT pleural effusion with compressive atelectasis in the LEFT lower lobe. Associated air bronchograms. 2. Scattered groundglass infiltrates in the perihilar LEFT upper and LEFT lowe r lobe. Recommend correlation for pneumonitis. 3. Small RIGHT pleural effusion. 4. Small pericardial effusion. 5. No mediastinal or hilar lymphadenopathy.
[2022-06-07 11:42] LABS: Thyroid Stimulating Hormone 1.45 uIU/mL (0.27-4.20)
--- NOTE | 2022-06-07 12:55 | P.PN_ITS ---
Subjective Subjective: Patient was seen this morning, with at bedside -Patient is wondering when his right-sided chest port will be removed -He complains of fatigue, weakness, he complains of difficulty swallowing, and also getting full quite soon -He is lost weight, no bloody or black stools, no hematemesis -Does report shortness of breath but no fevers, no chills -Reports recurrent hypotensive episodes, requiring multiple ER visits Vitals/I&O/Wt Last Vital Signs Temp 98.0 F 06/07/22 07:59 Pulse 83 06/07/22 08:19 Resp 18 06/07/22 08:19 BP 112/68 06/07/22 07:59 Pulse Ox 95 06/07/22 08:19 O2 Del Method 06/07/22 08:19 06/06/22 06/07/22 06/07/22 22:59 06:59 14:59 Intake Total 1200 / 1200 1170 / 1170 Output Total 150 / 150 Balance 1050 / 1050 1170 / 1170 Weight last 48 hrs Weight 54.431 kg Physical Exam Const: COMMON NORMALS: no acute distress and patient oriented x3 Resp: COMMON NORMALS: normal respiratory effort, No retractions, No use of accessory muscles and clear to auscultation bilaterally AUSCULTATION: clear to auscultation bilaterally Cardio: COMMON NORMALS: regular rate, regular rhythm, S1 normal heart sound present and S2 normal heart sound present RATE: regular rate RHYTHM: regular rhythm HEART SOUNDS: S1 normal heart sound present and S2 normal heart sound present GI: COMMON NORMALS: Normal to inspection, nondistended, normoactive bowel sounds present and non-tender Extremity: COMMON NORMALS: no pedal edema Neuro: COMMON NORMALS: patient oriented x3 Psych: COMMON NORMALS: mental status grossly normal Data 06/07/22 04:05 06/07/22 04:05 Micro: Microbiology 06/07/22 01:11 MRSA Culture - Final Nose 06/07/22 04:30 Bacterial Antigens - Final Urine,Clean Catch 06/07/22 04:30 Legionella Urinary Antigen - Final Urine,Clean Catch 06/06/22 23:05 Blood Culture - Preliminary Blood SPECIMEN COLLECTED 06/06/22 22:40 Blood Culture - Preliminary Blood SPECIMEN COLLECTED A&P Assessment and plan (1) Hypotension: Recurrent issue of late in someone who has a history of hypertension in past. Appears to respond to fluid administration when he presents. Cortisol okay. Clinically orthostatic by history as well. Has low albumin. On exam and on imaging today, has evidence of significant 3rd spacing. He has also primarily consuming salty broth and not much free water or nutritional supplements. -Blood pressures have improved with IV fluids -Does have pneumonia on CT imaging, continue broad-spectrum antibiotic therapy monitor cultures -Fluid boluses as required to maintain MAP greater than 65 (2) Hypoalbuminemia: Secondary to overall poor nutritional intake in the setting of known cancer being treated with chemoradiation until recently. Has minimal appetite and has not been taking nutritional supplements as recommended. He had had a PEG tube placed prior to initiation of treatment but had complications necessitating subsequent removal. Given these complications, he would like to not have a PEG tube placed again if it could be avoided, though is not completely against it should it become necessary to achieve an adequate nutritional state. Reviewed with patient and the absolute importance of getting him a minimum amount of nutritional support daily. Both asked questions and expressed understanding of the need to get a minimum of 3 to 4 cans of Ensure per day, 5-6 if he is able to tolerate it. Recommended small sips throughout the day rather than large volumes at a time and not to drink so much that he causes himself to vomit. Recommended keeping up with how much he is consuming daily. -Will consult nutrition, Ensure drinks twice daily later (3) Severe protein-calorie malnutrition: Secondary to above. Has been progressively worsening over the last 4 to 6 months with weight loss and poor oral intake. Consideration may need to be given to replacement of feeding tube depending on how he does with dietary recommendations described. -Consult speech therapy -Consult nutrition -We will do barium swallow (4) Deep vein thrombosis (DVT) of axillary vein of right upper extremity: Right upper extremity extending from jugular vein and axillary vein distally. Occlusive. Formed while patient was on Eliquis for another diagnosis and with right-sided Port-A-Cath in place. Extensive right upper extremity edema with intact capillary refill currently though multiple sores to the right upper extremity in different stages of healing. -Likely right-sided Port-A-Cath is inciting factor -Spoke spoke to Dr. Justice recommended removal as there is no plans of future chemotherapy -Consulted general surgery for Port-A-Cath removal -We will also culture the tip as there is concerns for possible infection (5) Gross hematuria: Developed the first few days of this month. No other urinary symptoms. Was started on 10-day course of Cipro for cystitis on 05/29/2022. Blood and urine cultures from that date were negative. Remains on treatment. No clots have been noted but grossly bloody. Had been on cisplatin but last dose was right at a month ago. Never had gross hematuria previously. Has follow-up with Dr. Lincoln for elevated or rather variable PSA levels over time. Noncontrasted imaging did not show any presence of stones. Prostate was noted to be enlarged which is not new from what I have gathered reviewing the chart. Not really able to discern significant change and grossly bloody urine since onset. -We will resume anticoagulation after Port-A-Cath removal, heparin monitor for hematuria -If hematuria reoccurs, will start CBI consult urology (6) Chronic anticoagulation: Has chronically been on Eliquis due to a history of tachybradycardia syndrome. Reports compliance with Eliquis therefore development of DVT represents treatment failure in the setting of known malignancy, treatment for malignancy and with implanted Port-A-Cath on the same side. Explained to him that cancer in and of itself as well as implanted devices can increase risk of development of blood clots. Reviewed with patient and his option to change to Lovenox. Patient recalls receiving when he was in the hospital. We talked about every 12 hours shots twice a day that he or his family would need to administer routinely. While his does not feel comfortable obligating herself to providing the injections, patient does have another family member that he feels confident will be able to help out. Both were given an opportunity to ask questions about medication. -Discussed with hematology oncology, the question is that was this a true failure of anticoagulation with Eliquis, will likely switch to Xarelto on discharge (7) Tachycardia-bradycardia: Follows with Dr. Salomon on an outpatient basis. Event monitoring did not show any evidence of atrial fibrillation or flutter. He was started on digoxin and March 2022. Today with evidence of digoxin toxicity just above normal range at 1.3. Could be a contributing factor to lack of oral intake and presenting symptoms. Review of vital signs over time shows that prior to initiation of digoxin he had significant tachycardia at times. 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 Last dose of cisplatin was administered on May 09 and last course of radiation therapy on May 24. By patient's and his 's understanding the cancer is gone after treatment. Follows with Dr. Justice outpatient. Has impacted his ability to swallow but reports that he has been doing better from that standpoint with pills since completing therapy. Recently treated for candidal mucositis with a round of Diflucan. (9) Presence of other vascular implants and grafts: Port-A-Cath in place right upper chest on same side as where DVT has developed in the right upper extremity. Was placed by Dr. Mead several months ago p rior to onset of chemoradiation. (10) Diabetes mellitus: Type II, [id number], without known complications. Has been on metformin only. Review of recent blood sugars shows that they have been in the range of 62-151 going back several months. I do not have a current A1c but my understanding is this has been managed at the [place] [facility]. Currently right now I believe the potential risk of GI symptoms (making it possibly more challenging for him to get appropriate oral intake) associated with metformin outweigh the potential benefits at this time. Can be reevaluated on an ongoing basis. (11) Cystitis: Currently on Cipro for presumptive diagnosis of cystitis made on 05/29/2022 secondary to development of gross hematuria. Urine and blood cultures from that date remain negative. Patient has a couple of more days left of the course of Cipro. -On broad-spectrum antibiotic therapy (12) Hypokalemia: Potassium 2.8. Received potassium supplementation in the emergency room. Has h ad intermittently for several months. Denies GI symptoms currently to account for losses. Review of medications shows albuterol which she has not been using excessively. No diuretics. Should start to see less of an impact from chemotherapy as he gets further out. Do not have magnesium and phosphorus levels today. -Replace as needed (13) Dysphagia: -Has complaints of dysphagia and also feeling full early, recurrent nausea vomiting - Will do a modified barium swallow -Speech therapy eval (14) Pneumonia: - Pneumonia, likely community-acquired pneumonia and/or aspiration pneumonia -Broaden antibiotic therapy to vancomycin, continue Zosyn -Follow blood cultures -Speech therapy evaluate as above (15) Hypomagnesemia: - Will replace (16) Hypophosphatemia: Plan Plan for today broaden antibiotic therapy to Vanco and Zosyn, Port-A-Cath removal, after Port-A-Cath is removed resume anticoagulation, monitor for hematuria, speech therapy eval, follow cultures Attestations Medical Necessity Statement*: Patient requires hospitalized patient for pneumonia, DVT associate with right Port-A-Cath requiring removal Coding Level of Care Code Acute Breaker Machine Tender for Chg Fwd Diagnoses Hypotension I95.9 Hypoalbuminemia E88.09 Severe protein-calorie malnutrition E43 Deep vein thrombosis (DVT) of axillary vein of right upper extremity I82.A11 Gross hematuria R31.0 Chronic anticoagulation Z79.01 Tachycardia-bradycardia I49.5 Squamous cell carcinoma of right tonsil C09.9 Presence of other vascular implants and grafts Z95.828 Diabetes mellitus E11.9 Cystitis N30.90 Hypokalemia E87.6 Dysphagia R13.10 Pneumonia J18.9 Hypomagnesemia E83.42 Hypophosphatemia E83.39
[2022-06-07] MEDS: ipratropium-albuterol 3 mL Neb INHALATION ×2 (13:48→20:22)
[2022-06-07 14:59] LABS: Influenza A by IFA negative (Negative); Influenza B by IFA negative (Negative)
--- NOTE | 2022-06-07 15:06 | PM.CONSULT ---
Providers/Reason For Consult Consulting Physician/Specialty*: Dr. Jamison Gold, DO/General surgery Reason for Consult*: Mediport removal Attending Physician: Barrett Burks MD Primary Care Provider: Katrina Gaytan MD History of Present Illness History of Present Illness Chacorta Siegel is a 66 year old male who presented to the hospital with increasing fatigue and hypotension. He was found to have a right upper extremity and right internal jugular DVT. He has a right-sided Mediport. He denies any pain. He reports that he has not taken his Eliquis in at least 2 days, however ER notes indicate that he took his Eliquis yesterday morning. Denies any nausea or vomiting Review of Systems General: Reports: 10 or more systems reviewed and unremarkable except in HPI and below Medications/Allergies Home Medications Medication Instructions Recorded Confirmed Last Taken Type albuterol sulfate 90 mcg/actuation 2 inh inhalation Q4H PRN shortness 11/30/21 06/07/22 03/06/22 Rx aerosol inhaler of breath or wheezing #18 grams cyanocobalamin (vitamin B-12) 1,000 mcg PO QAM 01/25/22 06/07/22 06/06/22 History 1,000 mcg tablet (Vitamin B-12) mometasone-formoterol HFA 200 2 puff inhalation BID 01/25/22 06/07/22 05/29/22 History mcg-5 mcg/actuation aerosol inhaler polyethylene glycol 3350 17 gram 17 g PO DAILY PRN Constipation 01/25/22 06/07/22 Unknown History oral powder packet (Miralax) rosuvastatin 20 mg tablet (Crestor) 10 mg PO QAM 01/25/22 06/07/22 06/06/22 History tiotropium bromide 2.5 2 inh inhalation QAM 01/25/22 06/07/22 06/06/22 History mcg/actuation mist for inhalation (Spiriva Respimat) lidocaine HCl 2 % mucosal solution 5 ml mucous membrane Q6H PRN Pain 02/22/22 06/07/22 Unknown Rx (Lidocaine Viscous) #100 mL acetaminophen 500 mg tablet 1,000 mg PO BID PRN Pain 03/06/22 06/07/22 06/01/22 History albuterol sulfate 2.5 mg/3 mL 2.5 mg inhalation Q6H PRN 03/20/22 06/07/22 Unknown History (0.083 %) solution for nebulization Shortness Of Breath aspirin 81 mg tablet,delayed 81 mg PO QAM 03/20/22 06/07/22 06/06/22 History release cholecalciferol (vitamin D3) 25 25 mcg PO QPM 03/20/22 06/07/22 06/05/22 History mcg (1,000 unit) tablet (Vitamin D3) guaifenesin 600 mg tablet, 600 mg PO BID 05/29/22 06/07/22 06/06/22 History extended release 12 hr (Mucinex) ondansetron HCl 4 mg tablet 4 mg PO Q6H PRN nausea and 05/29/22 06/07/22 Unknown Rx vomiting #20 tabs promethazine 25 mg tablet 25 mg PO Q6H PRN nausea and 06/01/22 06/07/22 Unknown Rx vomiting #20 tabs digoxin 125 mcg (0.125 mg) tablet 125 mcg PO .QOD #30 tabs 06/06/22 06/07/22 05/31/22 Rx 125 mcg enoxaparin 60 mg/0.6 mL 60 mg (0.6 mL) SUBCUT Q12H DVT 30 06/06/22 06/07/22 06/06/22 Rx subcutaneous syringe (Lovenox) days #36 mL potassium chloride 20 mEq 20 meq PO BID #6 tabs 06/06/22 06/07/22 Unknown Rx tablet,extended release Allergies Allergy/AdvReac Type Severity Reaction Status Date / Time No Known Allergies Allergy Verified 05/29/22 11:25 Current Medications Generic Name Dose Route Start Last Admin Trade Name Freq PRN Reason Stop Dose Admin Albuterol/Ipratropium 3 ml 06/07/22 13:15 06/07/22 13:48 Ipratropium-Albuterol 3 Ml Neb INHALATION 3 ml Q6H SAMMY Administration Piperacillin Sod/Tazobactam 50 mls @ 12.5 mls/hr 06/07/22 02:00 06/07/22 11:46 Sod 3.375 gm/ Sodium Chloride IV 12.5 mls/hr Q8H SAMMY Administration Protocol Potassium Chloride/Sodium Chloride 40 meq in 1,000 mls @ 100 mls/hr 06/07/22 00:42 06/07/22 11:46 Sodium Chlor 0.9% + Kcl 40 Meq IV 100 mls/hr .Q10H SAMMY Administration Vancomycin HCl 750 mg/ Sodium 250 mls @ 250 mls/hr 06/07/22 10:30 06/07/22 10:35 Chloride IV 250 mls/hr Q12H SAMMY Administration Protocol As Directed Potassium Phosphate 250 mg 06/07/22 09:00 06/07/22 09:41 Phosphorus 250 Mg Tablet PO 250 mg BID SAMMY Administration PFSH Acute PFSH: Medical History COPD (chronic obstructive pulmonary disease) Coronary artery disease Deep vein thrombosis (DVT) of axillary vein of right upper extremity Diabetes mellitus Elevated PSA Variable levels when checked over time, high and low, has seen Dr Lincoln, not evaluating further at this time as noted per Urology clinic notes Hyperlipidemia Hypertension GIDEON (obstructive sleep apnea) Presence of other vascular implants and grafts PowerPort left subclavian Dr. Mead 03/07/2022 Squamous cell carcinoma of right tonsil Treated with cisplatin (last dose 05/09/22) and radiation (last treatment 05/24/22); Follows with Dr Justice. Stroke Tachycardia-bradycardia Surgical History History of heart artery stent 1996 History of percutaneous endoscopic gastrostomy With subsequent removal due to leakage and perforation History of surgery on arm History of surgery on lower extremity Family History Mother Cancer lung Father Stroke Sister Cancer lung Other Bleeding disorder Clotting disorder Diabetes Hyperlipidemia Social History Smoking and tobacco status: current every day smoker (1 ppd, smoked since 1971) cigarettes Packs smoked per day: 1.5 Alcohol intake: never Lives independently: Yes Household members: family Marital status: Current occupational status: retired Vitals/I&O/Wt Last Vital Signs Temp 98.5 F 06/07/22 12:00 Pulse 88 06/07/22 13:57 Resp 16 06/07/22 13:57 BP 119/73 06/07/22 12:00 Pulse Ox 92 06/07/22 13:57 O2 Del Method 06/07/22 13:57 06/07/22 06/07/2206/07/22 06:59 14:59 22:59 Intake Total 1200 / 1200 1170 / 1170 Output Total 150 / 150 Balance 1050 / 1050 1170 / 1170 Weight last 48 hrs Weight 120 lb Physical Exam Narrative: General : Patient is well developed , no acute distress, oriented x3 Head : Normal cephalic, a-traumatic. Ears : Pinnae and external canal are normal. Hearing is normal. Eyes : PERRLA, Sclera and injection are normal. No conjunctival discharge. Nose : Mucous membranes are without erythema. Throat : buccal mucosa is normal, gums are without significant recession or hypertrophy. Lungs : Equal chest rise bilaterally, no use of accessory muscles, trachea is midline. Cor : Rate and rhythm are normal. Abdomen : Soft, ND, NT, no g/r/m Extremities : Edematous right upper extremity. Back : non-tender to palpation, no CVA tenderness. Neuro : CN II - XII intact, Upper and lower extremities have equal and full strength Data 06/07/22 04:05 06/07/22 04:05 Micro: Microbiology 06/07/22 01:11 MRSA Culture - Final Nose 06/07/22 04:30 Bacterial Antigens - Final Urine,Clean Catch 06/07/22 04:30 Legionella Urinary Antigen - Final Urine,Clean Catch 06/06/22 23:05 Blood Culture - Preliminary Blood SPECIMEN COLLECTED 06/06/22 22:40 Blood Culture - Preliminary Blood SPECIMEN COLLECTED A&P Assessment and plan (1) Deep vein thrombosis (DVT) of axillary vein of right upper extremity: Plan Mediport removal The risks and benefits of the procedure, including but not limited to, bleeding, infection, damage to surrounding structures, scar, numbness, pain or explained to the patient. He is understanding of the risks and wishes to proceed. Coding Level of Care Code Acute Household Appliance Repairer for Bernice Day Diagnoses Deep vein thrombosis (DVT) of axillary vein of right upper extremity I82.A11
[2022-06-07 16:20] LABS: Adenovirus Not Detected (NOT DETECT); Chlamydia Pneumoniae Not Detected (NOT DETECT); Coronavirus 229E,HKU1,NL63,OC4 Not Detected (NOT DETECT); Human Metapneumovirus Not Detected (NOT DETECT); Human Rhinovirus/Enterovirus Not Detected (NOT DETECT); Influenza A Not Detected (NOT DETECT); Influenza A H1 Not Detected (NOT DETECT); Influenza A H1-2009 Not Detected (NOT DETECT); Influenza A H3 Not Detected (NOT DETECT); Influenza B Not Detected (NOT DETECT); Mycoplasma Pneumoniae Not Detected (NOT DETECT); Parainfluenza Virus Type 1 Not Detected (NOT DETECT); Parainfluenza Virus Type 2 Not Detected (NOT DETECT); Parainfluenza Virus Type 3 Not Detected (NOT DETECT); Parainfluenza Virus Type 4 Not Detected (NOT DETECT); Respiratory Syncytial Virus A Not Detected (NOT DETECT); Respiratory Syncytial Virus B Not Detected (NOT DETECT); SARS-COV-2 Not Detected (NOT DETECT)
--- NOTE | 2022-06-07 17:10 | PM.OP ---
Operative Report Date of procedure: June 07, 2022 Pre-op diagnosis: Preop Diagnosis right upper extremity DVT Post-op diagnosis: same Procedure done: Mediport removal at the bedside Specimens removed/disposition: Catheter tip sent for culture Surgeon: Dr. Jamison Gold, DO Anesthesia: Local Estimated blood loss (mL): 5 Complications: None apparent Brief History: This is a very pleasant 66-year-old gentleman who had a right subclavian Mediport in place. He developed a right axillary DVT. Mediport removal was indicated. The risks and benefits were explained and documented. Procedure: 2% lidocaine with epinephrine was used to anesthetize the area over the right sided Mediport.? A 15 blade scalpel was used to make a horizontal incision just superior to the port.? Mediport was grasped and removed for holding pressure at the subclavian insertion site.? 3-0 Vicryl was used to make a [id number] closure over the catheter tract.? 3-0 nylon was used to close the incision in an simple running fashion.
[2022-06-07] MEDS: ondansetron 2 mg/ML SDV 2 mL 4 MG IVP (19:43)
[2022-06-07] MEDS: heparin drip 25,000 UNIT/500 ML PREMIX 15 UNIT IV (20:03)
[2022-06-07 21:06] LABS: Hematocrit 24.6 % (42.0-52.0); Hemoglobin 7.6 g/dL (11.7-16.6)
[2022-06-08] VITALS (19 sets, daily range): BP systolic 106–134; BP diastolic 64–83; PULSE 65–92; RESP 15–22; TEMP 36.6–37.3; O2SAT 90–99
[2022-06-08 02:33] LABS: Basophils % 0.1 %; Eosinophils % 0.1 %; Hematocrit 21.2 % (42.0-52.0); Hemoglobin 6.7 g/dL (11.7-16.6); Lymphocytes # 0.4 10^3/uL (0.8-4.8); Lymphocytes % 5.7 %; Mean Corpuscular HGB Conc 31.6 g/dL (30.0-36.0); Mean Corpuscular Volume 98.1 fl (80-94); Mean Platelet Volume 9.6 fL (7.4-10.4); Monocytes # 0.5 10^3/uL (0.2-0.9); Monocytes % 7.1 %; Neutrophils # 6.49 10^3/uL (1.8-7.7); Neutrophils % 85.6 %; Nucleated Red Blood Cells % 0 %; Platelet Count 104 10^3/cmm (130-400); Red Blood Count 2.16 10^6/uL (4.1-5.3); Red Cell Distribution Width 22.3 % (12.1-15.1); White Blood Count 7.6 10^3/uL (4.0-10.0)
[2022-06-08 02:44] LABS: Partial Thromboplastin Time 56.8 SECONDS (23.9-36.7)
[2022-06-08 02:48] LABS: Anion Gap 10.3 (5-19); Blood Urea Nitrogen 7 mg/dL (8-23); Calcium 6.5 mg/dL (8.5-10.5); Carbon Dioxide 24 mmol/L (22-29); Chloride 109 mmol/L (98-107); Creatinine Clr Calc Pharmacy 78.1932; Glomerular Filtration Rate 113.2 mL/min (90-130); Glucose 117 mg/dL (65-115); Magnesium 1.9 mg/dL (1.7-2.3); Osmolality Calculated 289 mOsm/kg (285-295); Phosphorus 1.8 mg/dL (2.5-4.5); Potassium 3.3 mmol/L (3.5-5.1); Sodium 140 mmol/L (136-145)
[2022-06-08] MEDS: piperacillin-tazobactam 3.375 GM in sodium chloride 0.9% (plus) 50 ML IV ×2 (04:23→17:26)
[2022-06-08] MEDS: sodium chlor 0.9% + KCl 40 mEq 40 MEQ/1,000 ML BAG 100 MEQ IV (06:19)
--- NOTE | 2022-06-08 08:00 | FL_ITS ---
WS: [id number] MODIFIED BARIUM SWALLOW HISTORY: Oropharyngeal dysphagia FLUOROSCOPY TIME: 2min [id number] # of spot films: 1 Modified barium swallow was performed by the speech pathologist. Fluoroscopy was provided with the pa tient in a lateral projection. Multiple food consistencies were provided. Significant coating of the oral pharynx with barium during the examination. There were several episod es of laryngeal penetration. Coughing was elicited during swallowing of the barium tablet. With sever al swallows of thin liquids aspiration was noted and significant. There was a spontaneous cough. FL/FL barium swallow modifd [id number] IMPRESSION: 1. Significant aspiration with thin liquids during contiguous swallows. 2. Several episodes of laryngeal penetration also noted. Please see speech therapist report also for recommendations.
--- NOTE | 2022-06-08 08:01 | USCV_ITS ---
Chacorta Siegel Age: 66 Gender: M : 1955 Exam Date: 06/08/2022 09:22 Ordering Phys: Barrett Burks MD Technologist: DELANO Exam Location: [facility] [place] Indication: DVT HISTORY: Upper extremity swelling. Right axillary DVT visualized 06/05/22 PROCEDURES: 2-D, Doppler and augmentation imaging is submitted of the right upper extremity venous system extending from the right jugular vein through the radial and ulnar veins. The cephalic vein is also included.. FINDINGS: Normal 2-D, color Doppler and phasicity noted in ther right upper extremity venous system extending from the right internal jugular vein through the main forearm. No thrombosis or occlusion noted. CONCLUSIONS Known Right axillary DVT seen on recent study 06/05/22 not well seen today and may have resolved with anticoagulation Otherwise no evidence of RUE thrombus Yoav Becerra MD (Electronically Signed) Final Date: 08 June 2022 12:17 S
--- NOTE | 2022-06-08 08:05 | PC.NURSE ---
notified Dr. Burks the patient has 22 efren IV's only. Charge notified ICU for an ultrasound guided IV to receive blood since hgb is 6.7. Dr. Burks okay with that.
--- NOTE | 2022-06-08 08:07 | PC.NURSE ---
Patient just left unit for procedure.
[2022-06-08] MEDS: ipratropium-albuterol 3 mL Neb INHALATION ×3 (08:44→21:31)
[2022-06-08] MEDS: phosphorus 250 mg Tablet PO ×2 (08:57→17:27)
[2022-06-08 10:16] LABS: Ferritin 412 ng/mL (30-400); Iron 14 ug/dL (59-158); Percent Saturation 33.3 % (20-50); Total Iron Binding Capacity 42 mcg/dl; Unsaturated Iron Binding 28 ug/dL (112-347)
[2022-06-08 10:31] LABS: Vitamin B12 1048 pg/mL (232-1245)
[2022-06-08 10:33] LABS: Folate Level 3.2 ng/mL (4.5-32.2)
--- NOTE | 2022-06-08 10:35 | PC.CHAP ---
Pastoral Care Encounter/Spiritual Assessment Type of Contact [] Declined cyber security analyst visit [] Patient/Family/Request visit [] Outpatient visit [] Follow-up visit [] Physician referral [] Code/Alert [x] Routine visit [] Staff referral [] Actively dying [] Patient sleeping [] Family support [] [] Out of room [] Palliative care [] [x] Receiving care in room [] Pre-surgical visit [] Trauma [] Long length of stay [] ICU visit [] Other: Relational/Emotional Strength [x] Patient feels connected with others/family/visitors/staff [] Distress [] Loneliness/isolation [] Abandonment Spirituality of Patient [] Person of Sonya [] Attends Orthodox of their Sonya [] Believes in Prayer [] Reads Bible or Islam materials [] There are Spiritual issues to be addressed Marking Room Supervisor Interventions [] Prayer [] Active listening [] Non-anxious presence [] Spiritual/emotional support [] Crisis/trauma care [] Spiritual counseling [] Bereavement support [] Provided bereavement packet [] Provided Bible/devotional materials [] Provided toy/stuffed animal, coloring book to patient or family member [] Provided Communion [] Anointing/[place] [] Salvation [] Completed spiritual assessment [] Other: Impact on Illness or Injury [] Angry [] Fearful [x] Anxious [] Often cries [] Exhaustion [] Unable to work [] Unable to attend scientology [] Unable to walk/stand [] Unable to read [] Unable to drive [] Unable to eat/drink [] Unable to sleep [] Unable to be with family [] Patient intubated [] Other: Summary waiting doctors report has a good attitude well go home Time spent with patient 10 mins
--- NOTE | 2022-06-08 11:46 | P.PN_ITS ---
Subjective Subjective: Patient was seen this morning, speech therapy at bedside, he sitting up in bed, denies any bloody or black stools, he feels a bit better, no nausea, no vomiting, overnight his heparin drip had to be stopped due to anemia Vitals/I&O/Wt Last Vital Signs Temp 98.1 F 06/08/22 09:00 Pulse 78 06/08/22 09:00 Resp 16 06/08/22 09:00 BP 114/72 06/08/22 09:00 Pulse Ox 95 06/08/22 09:00 O2 Del Method 06/08/22 09:00 O2 Flow Rate 3 06/08/22 08:45 06/07/22 06/08/22 06/08/22 22:59 06:59 14:59 Intake Total 1686.667 / 2856.667 1228.333 / 4085.000 Output Total 400 / 400 Balance 1686.667 / 2856.667 828.333 / 3685.000 Weight last 48 hrs Weight 54.431 kg Physical Exam Const: COMMON NORMALS: no acute distress and patient oriented x3 Resp: COMMON NORMALS: normal respiratory effort, No retractions, No use of acc essory muscles and clear to auscultation bilaterally AUSCULTATION: clear to auscultation bilaterally Cardio: COMMON NORMALS: regular rate, regular rhythm, S1 normal heart sound present and S2 normal heart sound present RATE: regular rate RHYTHM: regular rhythm HEART SOUNDS: S1 normal heart sound present and S2 normal heart sound present GI: COMMON NORMALS: Normal to inspection, nondistended, normoactive bowel sounds present and No hepatosplenomegaly present PALPATION: Yes No hepatosplenomegaly present Extremity: COMMON NORMALS: capillary refill normal Neuro: COMMON NORMALS: patient oriented x3 Psych: COMMON NORMALS: mental status grossly normal Data 06/08/22 02:25 06/08/22 02:25 Micro: Microbiology 06/06/22 23:05 Blood Culture - Preliminary Blood NEGATIVE TO DATE 06/06/22 22:40 Blood Culture - Preliminary Blood NEGATIVE TO DATE 06/07/22 09:33 Gram Stain - Final Sputum - Expectorated Sputum 06/07/22 01:11 MRSA Culture - Final Nose 06/07/22 04:30 Bacterial Antigens - Final Urine,Clean Catch A&P Assessment and plan (1) Hypotension: Recurrent issue of late in someone who has a history of hypertension in past. Appears to respond to fluid administration when he presents. Cortisol okay. Clinically orthostatic by history as well. Has low albumin. On exam and on imaging today, has evidence of significant 3rd spacing. He has also primarily consuming salty broth and not much free water or nutritional supplements. -Blood pressures have improved with IV fluids -Does have pneumonia on CT imaging, continue broad-spectrum antibiotic therapy monitor cultures -Fluid boluses as required to maintain MAP greater than 65 (2) Hypoalbuminemia: Secondary to overall poor nutritional intake in the setting of known cancer being treated with chemoradiation until recently. Has minimal appetite and has not been taking nutritional supplements as recommended. He had had a PEG tube placed prior to initiation of treatment but had complications necessitating subsequent removal. Given these complications, he would like to not have a PEG tube placed again if it could be avoided, though is not completely against it should it become necessary to achieve an adequate nutritional state. Reviewed with patient and the absolute importance of getting him a minimum amount of nutritional support daily. Both asked questions and expressed understanding of the need to get a minimum of 3 to 4 cans of Ensure per day, 5-6 if he is able to tolerate it. Recommended small sips throughout the day rather than large volumes at a time and not to drink so much that he causes himself to vomit. Recommended keeping up with how much he is consuming daily. -Will consult nutrition, Ensure drinks twice daily later (3) Severe protein-calorie malnutrition: Secondary to above. Has been progressively worsening over the last 4 to 6 months with weight loss and poor oral intake. Consideration may need to be given to replacement of feeding tube depending on how he does with dietary recommendations described. -Consult speech therapy -Consult nutrition -We will do barium swallow (4) Deep vein thrombosis (DVT) of axillary vein of right upper extremity: Right upper extremity extending from jugular vein and axillary vein distally. Occlusive. Formed while patient was on Eliquis for another diagnosis and with right-sided Port-A-Cath in place. Extensive right upper extremity edema with intact capillary refill currently though multiple sores to the right upper extremity in different stages of healing. -Likely right-sided Port-A-Cath is inciting factor -Spoke spoke to Dr. Justice recommended removal as there is no plans of future chemotherapy -status post Port-A-Cath removal -We will also culture the tip as there is concerns for possible infection (5) Gross hematuria: Developed the first few days of this month. No other urinary symptoms. Was started on 10-day course of Cipro for cystitis on 05/29/2022. Blood and urine cultures from that date were negative. Remains on treatment. No clots have been noted but grossly bloody. Had been on cisplatin but last dose was right at a month ago. Never had gross hematuria previously. Has follow-up with Dr. Lincoln for elevated or rather variable PSA levels over time. Noncontrasted imaging did not show any presence of stones. Prostate was noted to be enlarged which is not new from what I have gathered reviewing the chart. Not really able to discern significant change and grossly bloody urine since onset. -Anticoagulation discontinued for now, will resume once prudent -If hematuria reoccurs, will start CBI consult urology (6) Chronic anticoagulation: Has chronically been on Eliquis due to a history of tachybradycardia syndrome. Reports compliance with Eliquis therefore development of DVT represents treatment failure in the setting of known malignancy, treatment for malignancy and with implanted Port-A-Cath on the same side. Explained to him that cancer in and of itself as well as implanted devices can increase risk of development of blood clots. Reviewed with patient and his option to change to Lovenox. Patient recalls receiving when he was in the hospital. We talked about every 12 hours shots twice a day that he or his family would need to administer routinely. While his does not feel comfortable obligating herself to providing the injections, patient does have another family member that he feels confident will be able to help out. Both were given an opportunity to ask questions about medication. -Discussed with hematology oncology, the question is that was this a true failure of anticoagulation with Eliquis, will likely switch to Xarelto on discharge (7) Tachycardia-bradycardia: Follows with Dr. Salomon on an outpatient basis. Event monitoring did not show any evidence of atrial fibrillation or flutter. He was started on digoxin and March 2022. Today with evidence of digoxin toxicity just above normal range at 1.3. Could be a contributing factor to lack of oral intake and presenting symptoms. Review of vital signs over time shows that prior to initiation of digoxin he had significant tachycardia at times. 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 Last dose of cisplatin was administered on May 09 and last course of radiation therapy on May 24. By patient's and his 's understanding the cancer is gone after treatment. Follows with Dr. Justice outpatient. Has impacted his ability to swallow but reports that he has been doing better from that standpoint with pills since completing therapy. Recently treated for candidal mucositis with a round of Diflucan. (9) Presence of other vascular implants and grafts: Port-A-Cath in place right upper chest on same side as where DVT has developed in the right upper extremity. Was placed by Dr. Mead several months ago prior to onset of chemoradiation. -Status post Port-A-Cath removal (10) Diabetes mellitus: Type II, [id number], without known complications. Has been on metformin only. Review of recent blood sugars shows that they have been in the range of 62-151 going back several months. I do not have a current A1c but my understanding is this has been managed at the [facility]. Currently right now I believe the potential risk of GI symptoms (making it possibly more challenging for him to get appropriate oral intake) associated with metformin outweigh the potential benefits at this time. Can be reevaluated on an ongoing basis. (11) Cystitis: Currently on Cipro for presumptive diagnosis of cystitis made on 05/29/2022 secondary to development of gross hematuria. Urine and blood cultures from that date remain negative. Patient has a couple of more days left of the course of Cipro. -On broad-spectrum antibiotic therapy (12) Hypokalemia: Potassium 2.8. Received potassium supplementation in the emergency room. Has had intermittently for several months. Denies GI symptoms currently to account for losses. Review of medications shows albuterol which she has not been using excessively. No diuretics. Should start to see less of an impact from chemotherapy as he gets further out. Do not have magnesium and phosphorus levels today. -Replace as needed (13) Dysphagia: -Has complaints of dysphagia and also feeling full early, recurrent nausea vomiting - Modified barium swallow was performed by the speech pathologist. Fluoroscopy was provided with the patient in a lateral projection. Multiple food consistencies were provided. Significant coating of the oral pharynx with barium during the examination. There were several episodes of laryngeal penetration. Coughing was elicited during swallowing of the barium tablet. With several swallows of thin liquids aspiration was noted and significant. There was a spontaneous cough. -Speech therapy eval (14) Pneumonia: - Pneumonia, likely community-acquired pneumonia and/or aspiration pneumonia -Continue doses, start vancomycin as MRSA nares PCR negative -Follow blood cultures -Speech therapy evaluate as above (15) Hypomagnesemia: - Will replace (16) Hypophosphatemia: (17) Acute on chronic anemia: - Has chronic anemia -Iron studies show iron of 14, ferritin 412, folic acid 3.2 -Hemoccult stool pending -Hemoglobin down to 6.7, a heparin drip had to be stopped -Transfuse 1 PRBC start iron supplementation -Follow hemoglobin decide when to resume anticoagulation based on right upper quadrant ultrasound Plan Plan for today stop vancomycin, continue Zosyn, speech therapy eval, transfuse 1 unit PRBC, repeat right upper quadrant ultrasound, decide when to resume anticoagulation if this is a possibility given anemia, based on ultrasound results PT OT today Attestations Medical Necessity Statement*: Patient requires hospitalization for pneumonia, aspiration, acute anemia, right upper extremity DVT Coding Level of Care Code Acute Financial Services Officer for Chg Fwd Diagnoses Hypotension I95.9 Hypoalbuminemia E88.09 Severe protein-calorie malnutrition E43 Deep vein thrombosis (DVT) of axillary vein of right upper extremity I82.A11 Gross hematuria R31.0 Chronic anticoagulation Z79.01 Tachycardia-bradycardia I49.5 Squamous cell carcinoma of right tonsil C09.9 Presence of other vascular implants and grafts Z95.828 Diabetes mellitus E11.9 Cystitis N30.90 Hypokalemia E87.6 Dysphagia R13.10 Pneumonia J18.9 Hypomagnesemia E83.42 Hypophosphatemia E83.39 Acute on chronic anemia D64.9
[2022-06-08] MEDS: sodium chloride 0.9% (100 ml) 100 ML 125 ML (12:51)
[2022-06-08 17:19] LABS: Basophils % 0.4 %; Eosinophils % 0.5 %; Lymphocytes # 0.5 10^3/uL (0.8-4.8); Lymphocytes % 8.6 %; Mean Corpuscular HGB Conc 32.1 g/dL (30.0-36.0); Mean Corpuscular Hemoglobin 30.6 pg (28.0-34.0); Mean Corpuscular Volume 95.2 fl (80-94); Mean Platelet Volume 9.5 fL (7.4-10.4); Monocytes # 0.5 10^3/uL (0.2-0.9); Monocytes % 8.1 %; Neutrophils # 4.58 10^3/uL (1.8-7.7); Neutrophils % 80.5 %; Nucleated Red Blood Cells % 0 %; Platelet Count 94 10^3/cmm (130-400); Red Blood Count 2.94 10^6/uL (4.1-5.3); Red Cell Distribution Width 19.9 % (12.1-15.1); White Blood Count 5.7 10^3/uL (4.0-10.0)
[2022-06-08] MEDS: folic acid 1 mg Tablet PO (17:27)
[2022-06-08] MEDS: ferrous sulfate EC 325 mg Tablet PO (17:27)
[2022-06-09] VITALS (8 sets, daily range): BP systolic 123–142; BP diastolic 75–85; PULSE 74–84; RESP 16–20; TEMP 36.4–37; O2SAT 91–97
[2022-06-09] MEDS: sodium chlor 0.9% + KCl 40 mEq 40 MEQ/1,000 ML BAG 100 MEQ IV (00:55)
[2022-06-09] MEDS: piperacillin-tazobactam 3.375 GM in sodium chloride 0.9% (plus) 50 ML IV ×2 (01:26→09:28)
[2022-06-09] MEDS: ipratropium-albuterol 3 mL Neb INHALATION ×2 (02:36→07:47)
[2022-06-09 05:38] LABS: Basophils % 0.4 %; Eosinophils # 0.1 10^3/uL (0.0-0.8); Eosinophils % 0.9 %; Hematocrit 27.8 % (42.0-52.0); Lymphocytes # 0.4 10^3/uL (0.8-4.8); Lymphocytes % 7.6 %; Mean Corpuscular HGB Conc 32.4 g/dL (30.0-36.0); Mean Corpuscular Hemoglobin 30.6 pg (28.0-34.0); Mean Corpuscular Volume 94.6 fl (80-94); Mean Platelet Volume 9.9 fL (7.4-10.4); Monocytes # 0.5 10^3/uL (0.2-0.9); Monocytes % 8.5 %; Neutrophils # 4.47 10^3/uL (1.8-7.7); Neutrophils % 80.6 %; Nucleated Red Blood Cells % 0.4 %; Platelet Count 84 10^3/cmm (130-400); Red Blood Count 2.94 10^6/uL (4.1-5.3); Red Cell Distribution Width 20.6 % (12.1-15.1); White Blood Count 5.5 10^3/uL (4.0-10.0)
[2022-06-09 05:55] LABS: Blood Urea Nitrogen 6 mg/dL (8-23); Carbon Dioxide 25 mmol/L (22-29); Chloride 115 mmol/L (98-107); Creatinine Clr Calc Pharmacy 78.1932; Glomerular Filtration Rate 113.2 mL/min (90-130); Glucose 85 mg/dL (65-115); Magnesium 1.7 mg/dL (1.7-2.3); Osmolality Calculated 299 mOsm/kg (285-295); Phosphorus 2.9 mg/dL (2.5-4.5); Sodium 146 mmol/L (136-145)
[2022-06-09 06:08] LABS: Anion Gap 10.2 (5-19); Potassium 4.2 mmol/L (3.5-5.1)
[2022-06-09] MEDS: pantoprazole 40 mg SDV IVP (08:49)
[2022-06-09] MEDS: phosphorus 250 mg Tablet PO (08:49)
[2022-06-09] MEDS: ferrous sulfate EC 325 mg Tablet PO (08:49)
[2022-06-09] MEDS: folic acid 1 mg Tablet PO (08:49)
[2022-06-09] MEDS: polyethylene glycol 3350 Pkt 17 gm PO (08:49)
[2022-06-09] MEDS: iron sucrose 200 MG in sodium chloride 0.9% (100 ml) 100 ML 220 MG IV (09:25)
--- NOTE | 2022-06-09 11:39 | P.DS_ITS ---
Discharge Providers Date of Admission: 06/07/22 00:50 Date of Discharge: June 09, 2022 Attending Provider at Admission: Marcus Coronado MD Attending Provider at Discharge: Barrett Burks MD Primary Care Provider: Katrina Gaytan MD Diagnoses at Discharge Discharge Diagnosis (1) Hypotension: Status: Acute (2) Hypoalbuminemia: Status: Acute (3) Severe protein-calorie malnutrition: Status: Acute (4) Deep vein thrombosis (DVT) of axillary vein of right upper extremity: Status: Acute (5) Gross hematuria: Status: Acute (6) Chronic anticoagulation: Status: Acute Permanent problem details: On anticoagulation chronically with Eliquis due to history of tachy/taz syndrome (not found to have definite afib on event monitoring); DEVELOPED RUE DVT while on Eliquis (and with right sided port); CHANGED TO LOVENOX on 06/06/22 (7) Tachycardia-bradycardia: Status: Chronic (8) Squamous cell carcinoma of right tonsil: Status: Acute Permanent problem details: Treated with cisplatin (last dose 05/09/22) and radiation (last treatment 05/24/22); Follows with Dr Justice. (9) Presence of other vascular implants and grafts: Status: Chronic Permanent problem details: PowerPort left subclavian Dr. Mead 03/07/2022 (10) Diabetes mellitus: Status: Chronic (11) Cystitis: Status: Acute (12) Hypokalemia: Status: Acute (13) Dysphagia: Status: Chronic (14) Pneumonia: Status: Acute (15) Hypomagnesemia: Status: Acute (16) Hypophosphatemia: Status: Acute (17) Acute on chronic anemia: Status: Acute Reason for Visit Reason for Visit: low bp Hospital Course Hospital Course This is a 66-year-old male with a past medical history of CAD, COPD, DVT of axillary vein of right upper extremity on Eliquis, hyperlipidemia, hypertension, GIDEON, PowerPort in place, squamous cell carcinoma the right tonsil status postchemotherapy, history of tachybradycardia syndrome, history of CVA, history of endoscopic gastrostomy with subsequent removal due to leakage and perforation, status post partial laparoscopic gastrectomy who presents [facility] due to low blood pressures, weakness, fatigue Please look at my prior notes for further detail, hospitalization was quite complex Patient [facility] for hypotension likely multifactorial from anemia, slow GI bleed, and aspiration pneumonia For aspiration pneumonia, CT showed groundglass infiltrates left upper, left lower lobe, received broad-spectrum antibiotic therapy, cultures so far negative to date, overall clinically improved, discharged on Augmentin, aspiration precautions, aspiration instructions. I was clear with patient and his that I am worried about his recurrent risk of aspiration, aspiration pneumonia, and morbidity and mortality associated, advised adhere with aspiration precautions, aspiration diet, follow-up with gastroenterology. He is already had a PEG tube placement with complications, which was eventually removed. The other route would be a PEG tube placement however patient and family are not too keen about this. Patient was found to have acute on chronic anemia, on admission he had complaints of hematuria, no bloody or black stools reported. When his hemoglobin stabilized, he was placed back on anticoagulation given his history of right upper extremity DVT, however his hemoglobin dropped to 6.7, thus anticoagulation was discontinued. He was given a unit of blood and clinically monitored, hemoglobin 9.0, he was overall clinically improving. -In terms of the etiology behind his acute on chronic anemia, evidence of iron deficiency anemia on blood, given 1 unit PRBC, given 1 treatment of IV Venofer discharged on p.o. iron -I think that 1 component of his anemia is likely a slow GI bleed discharged on Protonix, Carafate, p.o. iron. He is getting need a GI evaluation, including an upper and lower GI evaluation, refer to general surgery. Advised if he were to have any blood or black stools to go to emergency room. -Another component of his anemia likely is related to folic acid deficiency, discharged on folic acid. He does have a poor diet some component related to his dysphagia, his early satiety and early fullness. Advised to drink protein shakes twice daily, modified diet, aspiration precautions -Another component of his anemia likely is related to his hematuria, refer to urology -I will have him follow with Dr. Justice in 1 week In terms of his hematuria, he had hematuria on admission, no recurrent episode of hematuria during his hospitalization He had an abdominal CT in February which showed -Mildly hyperdense focus in the right bladder base. This is better visualized compared with the prior imaging studies, possibly due to better bladder distention. It is uncertain whether this may represent a small bladder stone versus a bladder mass. Recommend clinical correlation and consider further evaluation with cystoscopy. -He is also has enlarged prostate,psa 3.15 -Nonetheless I want to have him follow-up with urology for consideration of cystoscopy Patient had a right chest port in place, with associated right upper extremity DVT, after discussion with Dr. Justice, and patient decision was made to remove port, as there was no further plans on chemotherapy, right chest port was removed without complication In terms of anticoagulation, for his right upper extremity VT, he is tried back on anticoagulation however developed anemia, necessary Inc. stop of anticoa gulation and blood transfusion, repeat venous ultrasound showed no definite evidence of right upper extremity thrombus, and no right axillary DVT seen on this study 06/05/2022 not well seen, and may have resolved. I had an extensive discussion with patient and his about anticoagulation, the source of his DVT has been removed, and repeat ultrasound shows no significant evidence of DVT. And he is suffering complications of anticoagulation, such as developing anemia and hematuria. Necessitating for us to stop anticoagulation for now. However there is a risk of him developing a recurrent DVT and morbidity mortality associated, as generally the recommendation is to continue anticoagulation for at least 3 months. We did ask follow-up anticoagulation here in the hospital I had him on a heparin drip for roughly 24 hours and he was unable to tolerate it and developed anemia so I gave it a try of anticoagulation but he suffered complication. Certainly this is a difficult decision we are between a rock and a hard place however I included him and his and the decision making, and we did shared decision-making. Other options could be do another trial of anticoagulation and see how he does understanding the risks including but not limited to worsening bleeding, and morbidity and mortality associated. After discussing the risks and benefits, all parties boisterously, all questions answered, discontinued anticoagulation for now. Continue mobility in the right upper extremity, monitor for signs of recurrent upper extremity DVT, monitor for signs of pulmonary embolism, if so go to the emergency room. Follow-up with Dr. Justice in 1 week. For complaints of patient's dysphagia -Underwent modified barium swallow -Modified barium swallow was performed by the speech pathologist. Fluoroscopy was provided with the patient in a lateral projection. Multiple food consistencies were provided. Significant coating of the oral pharynx with barium during the examination. There were several episodes of laryngeal penetration. Coughing was elicited during swallowing of the barium tablet. With several swallows of thin liquids aspiration was noted and significant. There was a spontaneous cough. -Had an extensive discussion with patient, including speech therapy had extensive discussion, training with patient about his high risk of aspiration -He will be discharged with home health care with speech therapy [place] -Discharged on dysphagia diet -He had a PEG tube placement with subsequent leakage and removal requiring a partial laparoscopic gastrectomy -Not sure how this is playing a role in his dysphagia, but he certainly complains of early fullness and nausea -I will refer him to gastroenterology for esophageal manometry and possible up per GI series, possible nuclear gastric emptying study, nursing [place] Physical Exam Const: COMMON NORMALS: no acute distress and patient oriented x3 Resp: COMMON NORMALS: normal respiratory effort, No retractions, No use of accessory muscles and clear to auscultation bilaterally AUSCULTATION: clear to auscultation bilaterally Cardio: COMMON NORMALS: regular rate, regular rhythm, S1 normal heart sound present and S2 normal heart sound present RATE: regular rate RHYTHM: regular rhythm HEART SOUNDS: S1 normal heart sound present and S2 normal heart sound present GI: COMMON NORMALS: Normal to inspection, nondistended, normoactive bowel sounds present and non-tender Extremity: COMMON NORMALS: no pedal edema Neuro: COMMON NORMALS: patient oriented x3 Psych: COMMON NORMALS: mental status grossly normal Discharge Data Studies Completed and Pending Completed Studies During Hospitalization Category Date Time Status CT chest wo con [id number] Routine Cat Scan 06/07/22 11:05 Completed FL barium swallow modifd [id number] Routine Exams 06/08/22 08:00 Completed XR chest 1V portable [id number] Stat Exams 06/06/22 22:30 Completed US venous duplex upper extremity RT [CV venous duplex Ultrasound 06/08/22 08:01 [place] [id number]] Routine Pending at discharge Category Date Time Status Basic Metabolic Panel AM LABS Lab 06/10/22 04:00 Ordered Blood Culture Stat Lab 06/06/22 23:05 Results Catheter Tip Culture Stat Lab 06/07/22 17:00 Received Complete Blood Count w/Auto AM LABS Lab 06/10/22 04:00 Ordered Immunochemical Fecal OCB Routine Lab 06/08/22 07:59 Ordered Lactoferrin Routine Lab 06/08/22 07:59 Ordered Magnesium AM LABS Lab 06/10/22 04:00 Ordered Occult Blood Stool [Immunochemical Fecal OCB] Routine Lab 06/09/22 07:48 Uncollected PRBC [Leukocyte Reduced RBC] Routine Lab 06/08/22 07:53 Results Phosphorus AM LABS Lab 06/10/22 04:00 Ordered Sputum Culture and Gram Stain Stat Lab 06/07/22 09:33 Results Type and Screen Routine Lab 06/08/22 07:53 Results Radiology Impressions Chest X-Ray 06/06/22 22:30 IMPRESSION: Relatively stable left basilar opacity/pleural effusion as described. Chest CT 06/07/22 11:05 IMPRESSION: 1. Small LEFT pleural effusion with compressive atelectasis in the LEFT lower lobe. Associated air bronchograms. 2. Scattered groundglass infiltrates in the perihilar LEFT upper and LEFT lower lobe. Recommend correlation for pneumonitis. 3. Small RIGHT pleural effusion. 4. Small pericardial effusion. 5. No mediastinal or hilar lymphadenopathy. Modified Barium Swallow 06/08/22 08:00 IMPRESSION: 1. Significant aspiration with thin liquids during contiguous swallows. 2. Several episodes of laryngeal penetration also noted. Please see speech therapist report also for recommendations. Laboratory Results WBC 5.5 10^3/uL (4.0-10.0) 06/09/22 04:34 RBC 2.94 10^6/uL (4.1-5.3) L 06/09/22 04:34 Hgb 9.0 g/dL (11.7-16.6) L 06/09/22 04:34 Hct 27.8 % (42.0-52.0) L 06/09/22 04:34 MCV 94.6 fl (80-94) H 06/09/22 04:34 MCH 30.6 pg (28.0-34.0) 06/09/22 04:34 MCHC 32.4 g/dL (30.0-36.0) 06/09/22 04:34 RDW 20.6 % (12.1-15.1) H 06/09/22 04:34 Plt Count 84 10^3/cmm (130-400) L 06/09/22 04:34 MPV 9.9 fL (7.4-10.4) 06/09/22 04:34 Neut % (Auto) 80.6 % 06/09/22 04:34 Lymph % (Auto) 7.6 % 06/09/22 04:34 [place] % (Auto) 8.5 % 06/09/22 04:34 Eos % (Auto) 0.9 % 06/09/22 04:34 Baso % (Auto) 0.4 % 06/09/22 04:34 Neut # (Auto) 4.47 10^3/uL (1.8-7.7) 06/09/22 04:34 Lymph # (Auto) 0.4 10^3/uL (0.8-4.8) L 06/09/22 04:34 [place] # (Auto) 0.5 10^3/uL (0.2-0.9) 06/09/22 04:34 Eos # (Auto) 0.1 10^3/uL (0.0-0.8) 06/09/22 04:34 Baso # (Auto) 0.0 10^3/uL (0.0-0.1) 06/09/22 04:34 Nucleated RBC % (auto) 0.4 % 06/09/22 04:34 Nucleated RBCs # 0.0 /100WBC 06/09/22 04:34 APTT 56.8 SECONDS (23.9-36.7) H 06/08/22 02:25 Sodium 146 mmol/L (136-145) H 06/09/22 04:34 Potassium 4.2 mmol/L (3.5-5.1) 06/09/22 04:34 Chloride 115 mmol/L (98-107) H 06/09/22 04:34 Carbon Dioxide 25 mmol/L (22-29) 06/09/22 04:34 Anion Gap 10.2 (5-19) 06/09/22 04:34 BUN 6 mg/dL (8-23) L 06/09/22 04:34 Creatinine 0.7 mg/dL (0.7-1.2) 06/09/22 04:34 GFR Calculation 113.2 mL/min (90-130) 06/09/22 04:34 Glucose 85 mg/dL (65-115) 06/09/22 04:34 Calculated Osmolality 299 mOsm/kg (285-295) H 06/09/22 04:34 Lactate 1.9 mmol/L (0.5-2.2) 06/06/22 22:40 Calcium 7.0 mg/dL (8.5-10.5) L 06/09/22 04:34 Phosphorus 2.9 mg/dL (2.5-4.5) 06/09/22 04:34 Magnesium 1.7 mg/dL (1.7-2.3) 06/09/22 04:34 Iron 14 ug/dL (59-158) L 06/08/22 Unknown TIBC 42 mcg/dl 06/08/22 Unknown % Saturation 33.3 % (20-50) 06/08/22 Unknown Unsat Iron Binding 28 ug/dL (112-347) L 06/08/22 Unknown Ferritin 412 ng/mL (30-400) H 06/08/22 Unknown Total Bilirubin 0.2 mg/dL (0.15-1.2) 06/06/22 22:40 AST 30 U/L (0-40) 06/06/22 22:40 ALT 13 U/L (0-41) 06/06/22 22:40 Alkaline Phosphatase 135 U/L (40-130) H 06/06/22 22:40 Troponin T Baseline 90 ng/L (0-15) H 06/06/22 22:40 Troponin T 120 Minute 77.20 ng/L (0-15) H 06/07/22 00:49 Delta Troponin T -12.80 ABS# (0-10) L 06/07/22 00:49 Troponin T Hi Sens 6Hr 78.08 ng/L (0-15) H 06/07/22 04:05 Troponin T Hi Sens 6Hr Delta -11.92 ng/L (0-12) L 06/07/22 04:05 C-Reactive Protein 25.0 mg/L (0.0-4.9) H 06/07/22 04:05 NT-Pro-B Natriuret Pep 2171 pg/mL (0-125) H 06/06/22 22:40 Total Protein 4.9 g/dL (6.6-8.7) L 06/06/22 22:40 Albumin 2.0 g/dL (3.5-5.2) L 06/06/22 22:40 Globulin 2.9 g/dL (1.3-4.6) 06/06/22 22:40 Vitamin B12 1048 pg/mL (232-1245) 06/08/22 Unknown Folate 3.2 ng/mL (4.5-32.2) L 06/08/22 Unknown Procalcitonin 3.69 ng/mL (0-0.5) H 06/06/22 22:40 TSH 1.45 uIU/mL (0.27-4.20) 06/07/22 04:05 Urine Color Brown (Yellow) 06/07/22 04:30 Urine Appearance Cloudy (CLEAR) A 06/07/22 04:30 Urine pH 5 (5-7) 06/07/22 04:30 Ur Specific [place] 1.010 (1.005-1.030) 06/07/22 04:30 Urine Protein 1+ (Negative) H 06/07/22 04:30 Urine Glucose (UA) Norm (Normal) 06/07/22 04:30 Urine Ketones Negative (Negative) 06/07/22 04:30 Urine Blood 3+ (Negative) H 06/07/22 04:30 Urine Nitrate Negative (Negative) 06/07/22 04:30 Urine Bilirubin Neg (Negative) 06/07/22 04:30 Urine Urobilinogen Norm mg/dL (Negative) 06/07/22 04:30 Ur Leukocyte Esterase Negative (Negative) 06/07/22 04:30 Urine RBC Too numerous to cnt /hpf (0-2) H 06/07/22 04:30 Urine WBC None /hpf (0-5) 06/07/22 04:30 Ur Squamous Epith Cells 0-4 /hpf (0-5) H 06/07/22 04:30 Calcium Oxalate Crystal None /hpf 06/07/22 04:30 Uric Acid Crystals N /hpf 06/07/22 04:30 Triple Phos Crystals None /hpf 06/07/22 04:30 Other Crystals N /hpf 06/07/22 04:30 Amorphous Sediment Not Reportable 06/07/22 04:30 Urine Bacteria None /hpf (NONE) 06/07/22 04:30 Urine Mucus N /hpf 06/07/22 04:30 Coronavirus 229E (PCR) Not detected (NOT DETECT) 06/07/22 14:24 Influenza Type A Ag negative (Negative) 06/07/22 14:34 Influenza Type B Ag negative (Negative) 06/07/22 14:34 SARS-CoV-2 (PCR) Not detected (NOT DETECT) 06/07/22 14:24 Blood Type B Positive 06/08/22 07:53 Rho(D) Type Positive 06/08/22 07:53 Antibody Screen Negative 06/08/22 07:53 Crossmatch See Detail 06/08/22 07:53 Vitals Last Vital Signs Temp 97.5 F L 06/09/22 11:00 Pulse 83 06/09/22 11:00 Resp 18 06/09/22 11:00 BP 142/79 06/09/22 11:00 Pulse Ox 92 06/09/22 11:00 O2 Del Method 06/09/22 11:00 O2 Flow Rate 0 06/09/22 08:00 Discharge Plan Discharge Patient Disposition: Home Health Service Condition: Stable Prescriptions: New benzonatate 100 mg Capsule 200 mg PO Q8H PRN (Reason: Cough) 7 Days Qty: 42 0RF folic acid 1 mg Tablet 1 mg PO BID 30 Days Qty: 60 0RF ferrous sulfate 325 mg (65 mg iron) Tablet,Delayed Release (Dr/Ec) 325 mg PO BIDWM 30 Days Qty: 30 0RF sucralfate 1 gram Tablet 1 g PO Q12H 30 Days Qty: 60 0RF Protonix 40 mg tablet,delayed release (DR/EC) 40 mg PO BID 30 Days Qty: 60 0RF amoxicillin-pot clavulanate 875-125 mg tablet 1 tab PO BID 5 Days Qty: 10 0RF metformin 500 mg tablet 250 mg PO DAILY 30 Days Qty: 30 0RF Continued Lidocaine Viscous 2 % solution 5 ml mucous membrane Q6H PRN (Reason: Pain) Qty: 100 0RF albuterol sulfate 90 mcg/actuation HFA aerosol inhaler 2 inh INHALATION Q4H PRN (Reason: shortness of breath or wheezing) Qty: 18 0RF acetaminophen 500 mg Tablet 1,000 mg PO BID PRN (Reason: Pain) albuterol sulfate 2.5 mg /3 mL (0.083 %) Solution For Nebulization 2.5 mg INHALATION Q6H PRN (Reason: Shortness Of Breath) aspirin 81 mg Tablet,Delayed Release (Dr/Ec) 81 mg PO QAM cholecalciferol (vitamin D3) [Vitamin D3] 25 mcg (1,000 unit) Tablet 25 mcg PO QPM ondansetron HCl 4 mg tablet 4 mg PO Q6H PRN (Reason: nausea and vomiting) 7 Days Qty: 28 0RF promethazine 25 mg tablet 25 mg PO Q6H PRN (Reason: nausea and vomiting) 7 Days Qty: 28 0RF cyanocobalamin (vitamin B-12) [Vitamin B-12] 1,000 mcg Tablet 1,000 mcg PO QAM rosuvastatin [Crestor] 20 mg Tablet 10 mg PO QAM Spiriva Respimat 2.5 mcg/actuation Mist 2 inh INHALATION QAM mometasone-formoterol 200-5 mcg/actuation Hfa Aerosol Inhaler 2 puff INHALATION BID polyethylene glycol 3350 [Miralax] 17 gram Powder In Packet 17 g PO DAILY PRN (Reason: Constipation) Changed Mucinex 600 mg Tablet Extended Release 12hr 600 mg PO BID PRN (Reason: congestion) 30 Days Qty: 30 0RF potassium chloride 20 mEq tablet extended release 20 meq PO DAILY Qty: 6 0RF Discontinued digoxin 125 mcg (0.125 mg) tablet 125 mcg PO .QOD Qty: 30 0RF enoxaparin [Lovenox] 60 mg/0.6 mL syringe 60 mg SUBCUT Q12H 30 Days Qty: 36 0RF Rx Instructions: Stop Eliquis Discharge Orders: Discharge Order (Routine); Ordered 06/09/22 Ordered By: Barrett Burks Referrals: Jayesh North MD [Referring] - 1 month ([facility] for dysphagia, need for esophageal monometry. Referral has been sent to their office. If you do not hear anything from Dr. North's office in 2 weeks call their office. ) Jamison Gold DO [Physician] - 1 month (egd and colonoscopy for anemia. Dr. Gold's office will call you with the appointment. ) Pan Lincoln MD [Physician] - 2 weeks (cystoscopy for hematuria. Dr. Lincoln's office will call you with an appoinment. ) Katrina Gaytan MD [Primary Care Provider] - 7-10 days (Please follow up with your primary care provider to discuss your recent hospital stay and change in medications within 7-10 days. ) John Justice MD [Staff Physician] - 1 week ([facility] They will call you with an appointment. ) Discharge Diet: As Directed and Cardiac Discharge Activity: Resume usual activity Patient Instructions: Benzonatate (By mouth), Iron Supplements (By mouth), Sucralfate (By mouth), Amoxicillin/Clavulanate Potassium (By mouth), Folic Acid (By mouth), Metformin (By mouth), Pantoprazole (By mouth), Urinary Tract Infection in Men (DC), Opioid Safety Activity Restrictions/Additional Instructions: - For your anemia, monitor for bloody or black stools or lightheadedness or dizziness if so go to the emergency room -Follow-up with Dr. Justice for recheck hemoglobin in 1 week -Please continue to hydrate well drink plenty of electrolyte balance fluids -For your dysphagia, please follow dysphagia diet as instructed -You do carry an increased risk of aspiration, follow dysphagia diet, aspiration precautions -If you develop shortness of breath, fevers come back to emergency room -For iron deficiency take iron -For your folate deficiency please take folic acid -Take antibiotics as prescribed for your pneumonia -I have set up an appointment with general surgery for consideration of EGD and colonoscopy for anemia -I have also set up an appointment for [facility] for your dysphagia for consideration of esophageal manometry and consideration of upper GI series -For your hematuria, please follow-up with Dr. Lincoln for consideration of cystoscopy -I have stopped her anticoagulation given your anemia however he is developed signs of a blood clot including but not limited to right upper extremity swelling, lower extremity swelling calf pain calf swelling or hemoptysis or sudden onset shortness of breath go to the emergency room -I have stopped her digoxin -If you develop recurrent low blood pressures go to the emergency room -I have decreased her metformin dose to 250 mg once daily, if he continues to get nausea, decreased to 2 to 50 mg once every other day -See your primary care provider in 72 hours Discharge Attestations Time Spent in Discharge Care*: greater than 30 min Quality Metrics Clinical Quality Measures [ No reported AMI, CVA or VTE this stay] Coding Level of Care Code Acute Chg FW DC note Exam Detailed Diagnoses Hypotension I95.9 Hypoalbuminemia E88.09 Severe protein-calorie malnutrition E43 Deep vein thrombosis (DVT) of axillary vein of right upper extremity I82.A11 Gross hematuria R31.0 Chronic anticoagulation Z79.01 Tachycardia-bradycardia I49.5 Squamous cell carcinoma of right tonsil C09.9 Presence of other vascular implants and grafts Z95.828 Diabetes mellitus E11.9 Cystitis N30.90 Hypokalemia E87.6 Dysphagia R13.10 Pneumonia J18.9 Hypomagnesemia E83.42 Hypophosphatemia E83.39 Acute on chronic anemia D64.9
--- NOTE | 2022-06-09 15:15 | PC.NURSE ---
Discussed discharge instructions, new medications, discontinued medications and follow up appointments with patient and spouse. Verbalized understanding.
--- NOTE | 2022-06-09 16:45 | PC.OT ---
OT Evaluation - Patient discharged before completion of evaluation.
== END 2022-06-09 14:45 | disposition home health service (06) | DRG 177 ==
LOC: ER 06-07 00:09 → MEDSURG 06-07 01:56
PROVIDERS: Admitting Provider Internal Medicine; Emergency Provider Emergency Medicine; PCP Family Medicine; Visit Provider Family Medicine
DX: J69.0 Pneumonitis due to inhalation of food and vomit (principal); E43 Unspecified severe protein-calorie malnutrition; Z68.1 Body mass index [BMI] 19.9 or less, adult; I82.621 Acute embolism and thrombosis of deep veins of right upper extremity; I95.9 Hypotension, unspecified; C09.9 Malignant neoplasm of tonsil, unspecified; Z79.899 Other long term (current) drug therapy; Z95.828 Presence of other vascular implants and grafts; E11.9 Type 2 diabetes mellitus without complications; N30.91 Cystitis, unspecified with hematuria; E87.6 Hypokalemia; R13.10 Dysphagia, unspecified; E83.42 Hypomagnesemia; D50.9 Iron deficiency anemia, unspecified; N40.0 Benign prostatic hyperplasia without lower urinary tract symptoms; G47.33 Obstructive sleep apnea (adult) (pediatric); I25.10 Atherosclerotic heart disease of native coronary artery without angina pectoris; Z95.5 Presence of coronary angioplasty implant and graft; J44.9 Chronic obstructive pulmonary disease, unspecified; Z66 Do not resuscitate; E86.1 Hypovolemia; Z79.82 Long term (current) use of aspirin; Z79.51 Long term (current) use of inhaled steroids; Z86.73 Personal history of transient ischemic attack (TIA), and cerebral infarction without residual deficits; F17.210 Nicotine dependence, cigarettes, uncomplicated
CPT/HCPCS: 36415; 36430; 71045; 71250; 74230; 80048; 80053; 81001; 82607; 82728; 82746; 83540; 83550; 83605; 83735; 83880; 84100; 84145; 84443; 84484; 85014; 85018; 85025; 85730; 86140; 86403; 86850; 86900; 86920; 87040; 87070; 87075; 87205; 87449; 87635; 87641; 87804; 92523; 92526; 92610; 92611; 93005; 93971; 94640; 96365; 96374; 97110; 97116; 97162; 99285; C9113; J0692; J1644; J1756; J2405; J2543; J3370; J3475; J7030; J7050; P9016; P9047

== ENCOUNTER 2022-06-09 23:25 | Inpatient (IN) | payer OTHER, MEDICARE, SELFPAY ==
[2022-06-09 23:28] VITALS: BP 141/101; PULSE 108; RESP 20; TEMP 37.1; O2SAT 94
--- NOTE | 2022-06-09 23:34 | XRR_ITS ---
PROCEDURE INFORMATION: Exam: XR Chest Exam date and time: 06/09/2022 11:38 PM Age: 66 years old Clinical indication: Shortness of breath; Patient HX: C/O SOB. Mid 80s sats on room air. History of pharyngeal cancer. TECHNIQUE: Imaging protocol: Radiologic exam of the chest. Views: 1 view. COMPARISON: CT chest con [id number] 06/07/2022 11:27 AM FINDINGS: Lungs: Bibasilar atelectasis versus infiltrate. Pleural spaces: Small bilateral pleural effusions. Heart/Mediastinum: Cardiomegaly. Bones/joints: Unremarkable. XR/XR chest 1V portable [id number] IMPRESSION: 1. Small bilateral pleural effusions. 2. Bibasilar atelectasis versus infiltrate. 3. Cardiomegaly.
--- NOTE | 2022-06-09 23:43 | ECG_ITS ---
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 Measurements Intervals [place] Rate: 102 P: -14 MT: 150 QRS: 166 QRSD: 80 T: -6 QT: 320 QTc: 417 Interpretive Statements SINUS TACHYCARDIA LOW QRS VOLTAGE [QRS DEFLECTION < 0.5/1.0 mV IN LIMB/CHEST LEADS] ANTEROLATERAL MYOCARDIAL INFARCTION , OF INDETERMINATE AGE [40+ ms Q WAVE IN I/aVL/V3-V6] Compared to ECG 06/07/2022 06:12:49 Sinus rhythm no longer present Myocardial infarct finding still present Electronically Signed On 06-09-2022 23:50:10 ESTHETICIAN MAKEUP ARTIST by Livan Napier M.D. [id number]
[2022-06-09 23:59] LABS: Basophils % 0.5 %; Eosinophils # 0.1 10^3/uL (0.0-0.8); Eosinophils % 1.7 %; Hematocrit 33.8 % (42.0-52.0); Hemoglobin 10.9 g/dL (11.7-16.6); Lymphocytes # 0.7 10^3/uL (0.8-4.8); Lymphocytes % 12.4 %; Mean Corpuscular HGB Conc 32.2 g/dL (30.0-36.0); Mean Corpuscular Hemoglobin 30.7 pg (28.0-34.0); Mean Corpuscular Volume 95.2 fl (80-94); Mean Platelet Volume 9.7 fL (7.4-10.4); Monocytes # 0.4 10^3/uL (0.2-0.9); Monocytes % 7.2 %; Neutrophils # 4.37 10^3/uL (1.8-7.7); Neutrophils % 76.3 %; Nucleated Red Blood Cells % 0 %; Platelet Count 88 10^3/cmm (130-400); Red Blood Count 3.55 10^6/uL (4.1-5.3); Red Cell Distribution Width 20.5 % (12.1-15.1); White Blood Count 5.7 10^3/uL (4.0-10.0)
[2022-06-10] VITALS (8 sets, daily range): BP systolic 108–129; BP diastolic 57–80; PULSE 76–90; RESP 18–26; TEMP 36.5; O2SAT 83–100
[2022-06-10 00:16] LABS: Influenza A by IFA negative (Negative); Influenza B by IFA negative (Negative); SARS Covid-2 Antigen negative (Negative)
--- NOTE | 2022-06-10 00:21 | USR_ITS ---
PROCEDURE INFORMATION: Exam: US Duplex Right Upper Extremity Veins, Limited Exam date and time: 06/10/2022 12:43 AM Age: 66 years old Clinical indication: Edema, localized; Upper extremity, right; Additional info: Swelling TECHNIQUE: Imaging protocol: Real-time Duplex ultrasound of the Right Upper Extremity with 2-D rai scale, color Doppler flow and spectral waveform analysis with image documentation. Limited exam focused on the right upper extremity veins. COMPARISON: No relevant prior studies available. FINDINGS: Evaluated veins include the right internal jugular, subclavian, axillary, brachial, basilic, cephalic, radial, and ulnar veins. No visible clot in the included veins. The included veins appear normally compressible. Duplex Doppler evaluation demonstrates flow in the evaluated veins. US/[place] [id number] IMPRESSION: No evidence of acute right upper extremity DVT.
--- NOTE | 2022-06-10 00:22 | W.ED.SOB ---
HPI - SOB/Dyspnea General: Chief Complaint: Shortness of Breath/Dyspnea Stated Complaint: right arm swelling, blood clot Time Seen by Provider: 06/09/22 23:34 Source: patient Mode of arrival: ambulatory Limitations: no limitations History of Present Illness: HPI Narrative: 66-year-old male who was admitted here this week for hypotension he was discharged yesterday he had multiple IVs in his right arm he states that since being home he has had swelling in that right arm he had received Lovenox here he had an ultrasound on the that showed no DVT in the old right arm. He is not on any blood thinners at this time she has had some mild dyspnea denies any cough denies fever Associated symptoms: Deny abdominal pain, chest pain, fever(s), nausea or vomiting Review of Systems Const: Denies: fever(s), chills, body aches or change in appetite Eyes: Denies: blurry vision or eye discomfort ENMT: Denies: throat pain or dental pain Card: Denies: chest pain Resp: Reports: dyspnea GI: Denies: abdominal pain, nausea, vomiting or diarrhea : Denies: dysuria Musc: Reports: extremity swelling Skin/Breast: Denies: rash Neuro: Denies: headache(s) Psych: Denies: depression Paco/Lymph: Denies: easy bruising All/Imm: Denies: urticaria PFSH ED PFSH: Medical History COPD (chronic obstructive pulmonary disease) Coronary artery disease Deep vein thrombosis (DVT) of axillary vein of right upper extremity Diabetes mellitus Elevated PSA Variable levels when checked over time, high and low, has seen Dr Lincoln, not evaluating further at this time as noted per Urology clinic notes Hyperlipidemia Hypertension GIDEON (obstructive sleep apnea) Presence of other vascular implants and grafts PowerPort left subclavian Dr. Mead 03/07/2022 Squamous cell carcinoma of right tonsil Treated with cisplatin (last dose 05/09/22) and radiation (last treatment 05/24/22); Follows with Dr Justice. Stroke Tachycardia-bradycardia Surgical History History of heart artery stent 1996 History of percutaneous endoscopic gastrostomy With subsequent removal due to leakage and perforation History of surgery on arm History of surgery on lower extremity Family History Mother Cancer lung Father Stroke Sister Cancer lung Other Bleeding disorder Clotting disorder Diabetes Hyperlipidemia Social History Smoking and tobacco status: current every day smoker cigarettes Packs smoked per day: 1.5 Alcohol intake: never Lives independently: Yes Household members: family Marital status: Current occupational status: retired Physical Exam Const: COMMON NORMALS: patient oriented x3 HENMT: COMMON NORMALS: normocephalic and atraumatic HEAD & SCALP: normocephalic and atraumatic Eye: COMMON NORMALS: Equal, round and reactive pupils present and EOMs intact bilaterally PUPIL: Yes Equal, round and reactive pupils present Neck/C-Spine: COMMON NORMALS: full ROM and supple Chest: COMMONS NORMALS: normal inspection of the chest and normal palpation of entire chest wall Resp: COMMON NORMALS: normal respiratory effort, No retractions, No use of accessory muscles and clear to auscultation bilaterally AUSCULTATION: clear to auscultation bilaterally Cardio: COMMON NORMALS: regular rate, regular rhythm and No murmurs present (Cardio) RATE: regular rate RHYTHM: regular rhythm GI: COMMON NORMALS: Normal to inspection, nondistended, normoactive bowel sounds present, Soft to palpation, non-tender and no masses PALPATION: Yes Soft to palpation Extremity: COMMON NORMALS: full ROM NARRATIVE EXTREMITY EXAM: Swelling noted to right arm distal pulses intact no erythema Neuro: COMMON NORMALS: patient oriented x3, moves all extremities and no focal motor deficits Psych: COMMON NORMALS: mental status grossly normal, Normal thought process present and cooperative THOUGHT PROCESS: Normal thought process present Skin: COMMON NORMALS: no rashes or lesions noted and no wounds GENERAL SKIN EXAM: no rashes or lesions noted Course Vital Signs: Vital signs: Vital Signs Temperature 98.8 F 06/09/22 23:28 Pulse Rate 90 06/10/22 00:37 Respiratory Rate 20 H 06/09/22 23:28 Blood Pressure 141/101 06/09/22 23:28 Pulse Oximetry 100 06/10/22 00:37 Oxygen Delivery Me thod 06/10/22 00:37 Oxygen Flow Rate 3 06/10/22 00:37 MDM - SOB/Dyspnea Medical Decision Making Patient presents here with dyspnea likely heart failure he does have an elevated BNP patient's been requiring oxygen here will desat into the 80s off of oxygen will admit at this time for his hypoxemia Lab Data 06/09/22 23:48 06/09/22 23:48 Labs/Radiology: Radiology Impressions Chest X-Ray 06/09/22 23:34 IMPRESSION: 1. Small bilateral pleural effusions. 2. Bibasilar atelectasis versus infiltrate. 3. Cardiomegaly. Laboratory Results WBC 5.7 10^3/uL (4.0-10.0) 06/09/22 23:48 RBC 3.55 10^6/uL (4.1-5.3) L 06/09/22 23:48 Hgb 10.9 g/dL (11.7-16.6) L 06/09/22 23:48 Hct 33.8 % (42.0-52.0) L 06/09/22 23:48 MCV 95.2 fl (80-94) H 06/09/22 23:48 MCH 30.7 pg (28.0-34.0) 06/09/22 23:48 MCHC 32.2 g/dL (30.0-36.0) 06/09/22 23:48 RDW 20.5 % (12.1-15.1) H 06/09/22 23:48 Plt Count 88 10^3/cmm (130-400) L 06/09/22 23:48 MPV 9.7 fL (7.4-10.4) 06/09/22 23:48 Neut % (Auto) 76.3 % 06/09/22 23:48 Lymph % (Auto) 12.4 % 06/09/22 23:48 Leake % (Auto) 7.2 % 06/09/22 23:48 Eos % (Auto) 1.7 % 06/09/22 23:48 Baso % (Auto) 0.5 % 06/09/22 23:48 Neut # (Auto) 4.37 10^3/uL (1.8-7.7) 06/09/22 23:48 Lymph # (Auto) 0.7 10^3/uL (0.8-4.8) L 06/09/22 23:48 Leake # (Auto) 0.4 10^3/uL (0.2-0.9) 06/09/22 23:48 Eos # (Auto) 0.1 10^3/uL (0.0-0.8) 06/09/22 23:48 Baso # (Auto) 0.0 10^3/uL (0.0-0.1) 06/09/22 23:48 Nucleated RBC % (auto) 0 % 06/09/22 23:48 Nucleated RBCs # 0.0 /100WBC 06/09/22 23:48 Sodium 142 mmol/L (136-145) 06/09/22 23:48 Potassium 4.0 mmol/L (3.5-5.1) 06/09/22 23:48 Chloride 107 mmol/L (98-107) 06/09/22 23:48 Carbon Dioxide 26 mmol/L (22-29) 06/09/22 23:48 Anion Gap 13.0 (5-19) 06/09/22 23:48 BUN 5 mg/dL (8-23) L 06/09/22 23:48 Creatinine 0.6 mg/dL (0.7-1.2) L 06/09/22 23:48 GFR Calculation 135.2 mL/min (90-130) H 06/09/22 23:48 Glucose 78 mg/dL (65-115) 06/09/22 23:48 Calculated Osmolality 290 mOsm/kg (285-295) 06/09/22 23:48 Calcium 7.6 mg/dL (8.5-10.5) L 06/09/22 23:48 Total Bilirubin 0.4 mg/dL (0.15-1.2) 06/09/22 23:48 AST 30 U/L (0-40) 06/09/22 23:48 ALT 16 U/L (0-41) 06/09/22 23:48 Alkaline Phosphatase 140 U/L (40-130) H 06/09/22 23:48 Troponin T Baseline 62 ng/L (0-15) H 06/09/22 23:48 NT-Pro-B Natriuret Pep 8002 pg/mL (0-125) H 06/09/22 23:48 Total Protein 5.0 g/dL (6.6-8.7) L 06/09/22 23:48 Albumin 2.1 g/dL (3.5-5.2) L 06/09/22 23:48 Globulin 2.9 g/dL (1.3-4.6) 06/09/22 23:48 Influenza Type A Ag negative (Negative) 06/09/22 23:48 Influenza Type B Ag negative (Negative) 06/09/22 23:48 SARS-CoV-2 Ag (Rapid) negative (Negative) 06/09/22 23:48 Discharge Plan Discharge Patient Disposition: Admitted As Inpatient Clinical Impression: Congestive heart failure, Acute respiratory failure with hypoxemia Condition: Stable Prescriptions: No Action Lidocaine Viscous 2 % solution 5 ml mucous membrane Q6H PRN (Reason: Pain) Qty: 100 0RF albuterol sulfate 90 mcg/actuation HFA aerosol inhaler 2 inh INHALATION Q4H PRN (Reason: shortness of breath or wheezing) Qty: 18 0RF acetaminophen 500 mg Tablet 1,000 mg PO BID PRN (Reason: Pain) albuterol sulfate 2.5 mg /3 mL (0.083 %) Solution For Nebulization 2.5 mg INHALATION Q6H PRN (Reason: Shortness Of Breath) aspirin 81 mg Tablet,Delayed Release (Dr/Ec) 81 mg PO QAM cholecalciferol (vitamin D3) [Vitamin D3] 25 mcg (1,000 unit) Tablet 25 mcg PO QPM benzonatate 100 mg Capsule 200 mg PO Q8H PRN (Reason: Cough) 7 Days Qty: 42 0RF folic acid 1 mg Tablet 1 mg PO BID 30 Days Qty: 60 0RF ferrous sulfate 325 mg (65 mg iron) Tablet,Delayed Release (Dr/Ec) 325 mg PO BIDWM 30 Days Qty: 30 0RF sucralfate 1 gram Tablet 1 g PO Q12H 30 Days Qty: 60 0RF Protonix 40 mg tablet,delayed release (DR/EC) 40 mg PO BID 30 Days Qty: 60 0RF amoxicillin-pot clavulanate 875-125 mg tablet 1 tab PO BID 5 Days Qty: 10 0RF metformin 500 mg tablet 250 mg PO DAILY 30 Days Qty: 30 0RF ondansetron HCl 4 mg tablet 4 mg PO Q6H PRN (Reason: nausea and vomiting) 7 Days Qty: 28 0RF promethazine 25 mg tablet 25 mg PO Q6H PRN (Reason: nausea and vomiting) 7 Days Qty: 28 0RF Mucinex 600 mg Tablet Extended Release 12hr 600 mg PO BID PRN (Reason: congestion) 30 Days Qty: 30 0RF potassium chloride 20 mEq tablet extended release 20 meq PO DAILY Qty: 6 0RF cyanocobalamin (vitamin B-12) [Vitamin B-12] 1,000 mcg Tablet 1,000 mcg PO QAM rosuvastatin [Crestor] 20 mg Tablet 10 mg PO QAM Spiriva Respimat 2.5 mcg/actuation Mist 2 inh INHALATION QAM mometasone-formoterol 200-5 mcg/actuation Hfa Aerosol Inhaler 2 puff INHALATION BID polyethylene glycol 3350 [Miralax] 17 gram Powder In Packet 17 g PO DAILY PRN (Reason: Constipation) Referrals: Katrina Gaytan MD [Primary Care Provider] - Coding Level of Care Code ED Drywall Taper Helper for Chg Fwd Exam Comprehensive
[2022-06-10] MEDS: ipratropium-albuterol 3 mL Neb INHALATION (00:36)
[2022-06-10 00:41] LABS: Alanine Aminotransferase 16 U/L (0-41); Albumin Level 2.1 g/dL (3.5-5.2); Alkaline Phosphatase 140 U/L (40-130); Aspartate Amino Transferase 30 U/L (0-40); Blood Urea Nitrogen 5 mg/dL (8-23); Calcium 7.6 mg/dL (8.5-10.5); Carbon Dioxide 26 mmol/L (22-29); Chloride 107 mmol/L (98-107); Globulin 2.9 g/dL (1.3-4.6); Glomerular Filtration Rate 135.2 mL/min (90-130); Glucose 78 mg/dL (65-115); NT Pro B Type Natriuretic Pept 8002 pg/mL (0-125); Osmolality Calculated 290 mOsm/kg (285-295); Sodium 142 mmol/L (136-145); Total Bilirubin 0.4 mg/dL (0.15-1.2)
[2022-06-10 00:45] LABS: Creatinine Clr Calc Pharmacy 67.3307
[2022-06-10 00:59] LABS: Troponin(5th) Baseline 62 ng/L (0-15)
[2022-06-10] MEDS: FUROsemide 10 mg/mL SDV 4mL 40 MG IVP (01:14)
--- NOTE | 2022-06-10 01:49 | ECG_ITS ---
[facility] Test Date: 2022-06-10 Pat Name: Chacorta Siegel Department: Room: Gender: Male Branch Assistant: : 1955 Requested By: Sami Giron Order Number: [id number] Reading MD: Reyes Lunsford Measurements Intervals [place] Rate: 89 P: 58 RI: 139 QRS: -74 QRSD: 80 T: 50 QT: 326 QTc: 398 Interpretive Statements SINUS RHYTHM WITH SINUS ARRHYTHMIA LOW QRS VOLTAGE [QRS DEFLECTION < 0.5/1.0 mV IN LIMB/CHEST LEADS] INFERIOR MYOCARDIAL INFARCTION , PROBABLY OLD [40+ ms Q WAVE AND/OR ST/T ABNORMALITY IN II/aVF] ANTEROSEPTAL MYOCARDIAL INFARCTION , PROBABLY OLD [40+ ms Q WAVE IN V1-V4] Compared to ECG 06/09/2022 23:43:56 Myocardial infarct finding still present Electronically Signed On 06-11-2022 15:52:13 RAND CEMENTER by Reyes Lunsfrod [id number]
--- NOTE | 2022-06-10 01:49 | ECG_ITS ---
[facility] Test Date: 2022-06-10 Pat Name: Chacorta Siegel Department: Room: 111 Gender: Male Clinical Material Handler: : 1955 Requested By: Sami Giron Order Number: [id number] Reading MD: Reyes Lunsford Measurements Intervals [place] Rate: 92 P: 55 IL: 151 QRS: -84 QRSD: 81 T: 72 QT: 315 QTc: 391 Interpretive Statements SINUS RHYTHM WITH SINUS ARRHYTHMIA LOW QRS VOLTAGE [QRS DEFLECTION < 0.5/1.0 mV IN LIMB/CHEST LEADS] INFERIOR MYOCARDIAL INFARCTION , PROBABLY OLD [40+ ms Q WAVE AND/OR ST/T ABNORMALITY IN II/aVF] ANTEROSEPTAL MYOCARDIAL INFARCTION , PROBABLY OLD [40+ ms Q WAVE IN V1-V4] Compared to ECG 06/09/2022 23:43:56 Sinus tachycardia no longer present Myocardial infarct finding still present Electronically Signed On 06-11-2022 15:52:31 ROLL CUTTING OPERATOR by Reyes Lunsford [id number]
[2022-06-10 02:07] LABS: Troponin 5 2HR 53.81 ng/L (0-15)
--- NOTE | 2022-06-10 04:48 | PM.HP ---
Providers/Chief Complaint Admitting Physician: Marcus Coronado MD Primary Care Provider: Katrina Gaytan MD Chief Complaint: right arm swelling, blood clot History of Present Illness Chacorta Siegel is a 66 year old male Medications/Allergies Home Medications Medication Instructions Recorded Confirmed Last Taken Type albuterol sulfate 90 mcg/actuation 2 inh inhalation Q4H PRN shortness 11/30/21 06/10/22 03/06/22 Rx aerosol inhaler of breath or wheezing #18 grams cyanocobalamin (vitamin B-12) 1,000 mcg PO QAM 01/25/22 06/10/22 06/06/22 03:00 History 1,000 mcg tablet (Vitamin B-12) mometasone-formoterol HFA 200 2 puff inhalation BID 01/25/22 06/10/22 05/29/22 History mcg-5 mcg/actuation aerosol inhaler polyethylene glycol 3350 17 gram 17 g PO DAILY PRN Constipation 01/25/22 06/10/22 06/09/22 History oral powder packet (Miralax) rosuvastatin 20 mg tablet (Crestor) 10 mg PO QAM 01/25/22 06/10/22 06/06/22 03:00 History tiotropium bromide 2.5 2 inh inhalation QAM 01/25/22 06/10/22 06/06/22 03:00 History mcg/actuation mist for inhalation (Spiriva Respimat) lidocaine HCl 2 % mucosal solution 5 ml mucous membrane Q6H PRN Pain 02/22/22 06/10/22 Unknown Rx (Lidocaine Viscous) #100 mL acetaminophen 500 mg tablet 1,000 mg PO BID PRN Pain 03/06/22 06/10/22 06/09/22 17:00 History albuterol sulfate 2.5 mg/3 mL 2.5 mg inhalation Q6H PRN 03/20/22 06/10/22 06/09/22 18:00 History (0.083 %) solution for nebulization Shortness Of Breath aspirin 81 mg tablet,delayed 81 mg PO QAM 03/20/22 06/10/22 06/06/22 03:00 History release cholecalciferol (vitamin D3) 25 25 mcg PO QPM 03/20/22 06/10/22 06/06/22 History mcg (1,000 unit) tablet (Vitamin D3) amoxicillin 875 mg-potassium 1 tab PO BID 5 days #10 tabs 06/09/22 06/10/22 06/09/22 17:00 Rx clavulanate 125 mg tablet benzonatate 100 mg capsule 200 mg PO Q8H PRN Cough 7 days #42 06/09/22 06/10/22 06/09/22 17:00 Rx caps ferrous sulfate 325 mg (65 mg 325 mg PO BIDWM 30 days #30 tabs 06/09/22 06/10/22 06/09/22 17:00 Rx iron) tablet,delayed release folic acid 1 mg tablet 1 mg PO BID 30 days #60 tabs 06/09/22 06/10/22 06/09/22 17:00 Rx guaifenesin 600 mg tablet, 600 mg PO BID PRN congestion 30 06/09/22 06/10/22 06/06/22 Rx extended release 12 hr (Mucinex) days #30 tabs metformin 500 mg tablet 250 mg PO DAILY 30 days #30 tabs 06/09/22 06/10/22 06/06/22 03:00 Rx ondansetron HCl 4 mg tablet 4 mg PO Q6H PRN nausea and 06/09/22 06/10/22 06/06/22 Rx vomiting 7 days #28 tabs pantoprazole 40 mg tablet,delayed 40 mg PO BID 30 days #60 tabs 06/09/22 06/10/22 06/09/22 17:00 Rx release (Protonix) potassium chloride 20 mEq 20 meq PO DAILY #6 tabs 06/09/22 06/10/22 Unknown Rx tablet,extended release promethazine 25 mg tablet 25 mg PO Q6H PRN nausea and 06/09/22 06/10/22 Unknown Rx vomiting 7 days #28 tabs sucralfate 1 gram tablet 1 g PO Q12H 30 days #60 tabs 06/09/22 06/10/22 Unknown Rx amoxicillin 875 mg-potassium tab 06/10/22 06/09/22 History clavulanate 125 mg tablet 1 tab Allergies Allergy/AdvReac Type Severity Reaction Status Date / Time No Known Allergies Allergy Verified 05/29/22 11:25 PFSH Acute PFSH: Medical History COPD (chronic obstructive pulmonary disease) Coronary artery disease Deep vein thrombosis (DVT) of axillary vein of right upper extremity Diabetes mellitus Elevated PSA Variable levels when checked over time, high and low, has seen Dr Lincoln, not evaluating further at this time as noted per Urology clinic notes Hyperlipidemia Hypertension GIDEON (obstructive sleep apnea) Presence of other vascular implants and grafts PowerPort left subclavian Dr. Mead 03/07/2022 Squamous cell carcinoma of right tonsil Treated with cisplatin (last dose 05/09/22) and radiation (last treatment 05/24/22); Follows with Dr Justice. Stroke Tachycardia-bradycardia Surgical History History of heart artery stent 1996 History of percutaneous endoscopic gastrostomy With subsequent removal due to leakage and perforation History of surgery on arm History of surgery on lower extremity Family History Mother Cancer lung Father Stroke Sister Cancer lung Other Bleeding disorder Clotting disorder Diabetes Hyperlipidemia Social History Smoking and tobacco status: current every day smoker cigarettes Packs smoked per day: 1.5 Alcohol intake: never Lives independently: Yes Household members: family Marital status: Current occupational status: retired Vitals/I&O/Wt Last Vital Signs Temp 97.7 F 06/10/22 03:30 Pulse 84 06/10/22 03:30 Resp 20 H 06/10/22 03:30 BP 108/57 06/10/22 03:30 Pulse Ox 98 06/10/22 03:30 O2 Del Method 06/10/22 03:30 O2 Flow Rate 2 06/10/22 03:30 06/09/22 06/09/22 06/10/22 14:59 22:59 06:59 Output Total 350 / 350 Balance -350 / -350 Weight last 48 hrs Weight 51.71 kg Data 06/09/22 23:48 06/09/22 23:48 Coding Level of Care Code Acute Advanced Solutions Architect for Chg Shay
[2022-06-10 06:13] LABS: Troponin 5 6HR 63.15 ng/L (0-15); Troponin 5 6HR Delta 1.15 ng/L (0-12)
[2022-06-10 06:23] LABS: Glucose Point of Care 80 mg/dL (70-110)
--- NOTE | 2022-06-10 07:12 | PC.NURSE ---
Patient left AMA at this time via wheelchair with spouse. Prior to leaving patient removed all tele and pulse ox monitoring. Patient was on 2L per NC and denied for staff to observe on pulse ox on room air, states understanding of associated risk. Dr Coronado came in to see patient just prior to his departure. All belongings sent with patient.
--- NOTE | 2022-06-10 07:21 | W.PM.EVENTAC ---
Event Notes Attestations Time Spent in Patient Care: Patient was upset that he was not seen by a physician, I did explain to him that there was CODE BLUE in the hospital and there was an emergence, I had to intubate a patient and then put art line which takes precedence. He understood the cause of delayed but stating that now he is feeling better his right arm swelling has improved he is sick of being in the hospital and now he would like to go home. Patient had decided to leave AMA before I could interview and examine him. I am seeing him right at the time when he is dressed up to go home. I am seeing him now at 7 AM after I have stabilized my sick patient in the ICU.
== END 2022-06-10 07:30 | disposition home or self-care (01) | DRG 189 ==
LOC: ER 06-10 02:33 → CSU 06-10 02:34
PROVIDERS: Admitting Provider Internal Medicine; Emergency Provider Emergency Medicine; PCP Family Medicine; Visit Provider Internal Medicine
DX: J96.01 Acute respiratory failure with hypoxia (principal); F17.210 Nicotine dependence, cigarettes, uncomplicated; Z53.29 Procedure and treatment not carried out because of patient's decision for other reasons; I50.9 Heart failure, unspecified; R60.0 Localized edema
CPT/HCPCS: 36416; 71045; 80053; 82962; 83880; 84484; 85025; 87426; 87804; 93005; 93971; 94640; 96374; 99285; J1940

== ENCOUNTER → 2022-06-20 08:40 | Outpatient (BNVA) | payer OTHER, SELFPAY | PROVIDERS: PCP Family Medicine; Visit Provider Surgery | DX: Z98.890 Other specified postprocedural states (principal) | CPT/HCPCS: 99024; 99203 ==

== ENCOUNTER → 2022-06-21 09:39 | Outpatient (BNVA) | payer OTHER, SELFPAY | PROVIDERS: PCP Family Medicine; Visit Provider Internal Medicine Hematology & Oncology | DX: C09.8 Malignant neoplasm of overlapping sites of tonsil (principal); C77.8 Secondary and unspecified malignant neoplasm of lymph nodes of multiple regions; F17.210 Nicotine dependence, cigarettes, uncomplicated | CPT/HCPCS: 99215 ==

== ENCOUNTER 2022-06-23 09:30 | Oncology outpatient (recurring) (ONCR) | payer OTHER, SELFPAY ==
[2022-06-01 08:31] VITALS: BP 74/51; PULSE 116; RESP 16; TEMP 36.1; O2SAT 97
--- NOTE | 2022-06-01 08:53 | PC.NURSE ---
pt presented to clinic, c/o severe weakness, fatigue, malaise and vomiting. Pt states he cannot keep anything down. VS obtained pt is hypotensive, slightly tachycardic. Dr valentine consulted. Dr. valentine in to see patient, pt was treated sunday in ER for UTI and yeast infection. Dr valentine suggests patient transferred to ER for sepsis workup. PT and agree to plan. Report called to IRISH Dejesus in ER. Patient transferred to ER via wheelchair with 2 nurse assist.
[2022-06-02 08:16] LABS: Charge for UA Resulting for Rev
[2022-06-02] MEDS: sodium chloride 0.9% 1,000 ML 999 ML IV (08:20)
[2022-06-02 08:48] LABS: Bilirubin Urine Neg (Negative); Blood Urine 3+ (Negative); Glucose Urine UA Norm (Normal); Ketones Urine 1+ (Negative); Nitrate Urine Negative (Negative); Protein Urine 1+ (Negative); Specific Gravity, Urine 1.015 (1.005-1.030); Urine Appearance Cloudy (CLEAR); Urine Color Yellow (Yellow); pH Urine 5 (5-7)
[2022-06-02 08:49] LABS: Add Urine Microscopic? YES; Leukocyte Esterase Urine Trace (Negative); Urobilinogen Urine Norm (Negative)
[2022-06-02 09:56] VITALS: BP 94/66; PULSE 88; RESP 18; TEMP 35.6; O2SAT 100
[2022-06-05] MEDS: sodium chloride 0.9% 1,000 ML 999 ML IV (11:55)
--- NOTE | 2022-06-05 13:44 | USCV_ITS ---
Chacorta Siegel Age: 66 Gender: M : 1955 Exam Date: 06/05/2022 13:58 Ordering Phys: John Justice MD Technologist: Exam [place] [facility] [place]: rt arm pain and swelling PROCEDURES: 2-D, Doppler and augmentation imaging is submitted of the right upper extremity venous system extending from the right jugular vein through the radial and ulnar veins. The cephalic vein is also included.. The following venous structures were evaluated: internal jugular vein, subclavian vein, axillary vein, and brachial veins. In addition, the basilic vein, cephalic vein, radial vein, and ulnar vein. FINDINGS: There is occlusive thrombus in a segement of the right axillary vein. The rest of the veins are normal. Oncology called with report. CONCLUSIONS Right upper extremity deep venous thrombosis involving axillary vein. Dr. Ciarra Puente DO (Electronically Signed) Final Date: 05 June 2022 14:57 S
[2022-06-13 09:10] LABS: Basophils % 0.3 %; Eosinophils # 0.1 10^3/uL (0.0-0.8); Eosinophils % 1.3 %; Hematocrit 35.5 % (42.0-52.0); Hemoglobin 11.4 g/dL (11.7-16.6); Lymphocytes # 0.7 10^3/uL (0.8-4.8); Lymphocytes % 10.9 %; Mean Corpuscular HGB Conc 32.1 g/dL (30.0-36.0); Mean Corpuscular Hemoglobin 30.8 pg (28.0-34.0); Mean Corpuscular Volume 95.9 fl (80-94); Mean Platelet Volume 9.9 fL (7.4-10.4); Monocytes # 0.5 10^3/uL (0.2-0.9); Monocytes % 8.5 %; Neutrophils # 4.67 10^3/uL (1.8-7.7); Neutrophils % 78.3 %; Nucleated Red Blood Cells % 0 %; Platelet Count 76 10^3/cmm (130-400); Red Cell Distribution Width 18.7 % (12.1-15.1)
[2022-06-13] MEDS: sodium chloride 0.9% 1,000 ML 999 ML IV (09:13)
[2022-06-13 09:31] LABS: Alanine Aminotransferase 16 U/L (0-41); Alkaline Phosphatase 148 U/L (40-130); Anion Gap 13.4 (5-19); Aspartate Amino Transferase 24 U/L (0-40); Blood Urea Nitrogen 6 mg/dL (8-23); Calcium 7.6 mg/dL (8.5-10.5); Carbon Dioxide 31 mmol/L (22-29); Chloride 103 mmol/L (98-107); Globulin 3.2 g/dL (1.3-4.6); Glomerular Filtration Rate 135.2 mL/min (90-130); Glucose 124 mg/dL (65-115); Osmolality Calculated 297 mOsm/kg (285-295); Potassium 3.4 mmol/L (3.5-5.1); Sodium 144 mmol/L (136-145); Total Bilirubin 0.4 mg/dL (0.15-1.2); Total Protein 5.2 g/dL (6.6-8.7)
[2022-06-21 10:46] LABS: Basophils % 0.6 %; Eosinophils # 0.1 10^3/uL (0.0-0.8); Hematocrit 36.3 % (42.0-52.0); Hemoglobin 11.6 g/dL (11.7-16.6); Lymphocytes # 1.1 10^3/uL (0.8-4.8); Lymphocytes % 15.6 %; Mean Corpuscular Volume 97.1 fl (80-94); Mean Platelet Volume 9.9 fL (7.4-10.4); Monocytes # 0.6 10^3/uL (0.2-0.9); Monocytes % 8.5 %; Neutrophils % 73.9 %; Nucleated Red Blood Cells % 0 %; Platelet Count 141 10^3/cmm (130-400); Red Blood Count 3.74 10^6/uL (4.1-5.3); Red Cell Distribution Width 17.4 % (12.1-15.1)
[2022-06-21 11:14] LABS: Alanine Aminotransferase 9 U/L (0-41); Alkaline Phosphatase 146 U/L (40-130); Blood Urea Nitrogen 7 mg/dL (8-23); Carbon Dioxide 30 mmol/L (22-29); Chloride 102 mmol/L (98-107); Globulin 3.8 g/dL (1.3-4.6); Glomerular Filtration Rate 135.2 mL/min (90-130); Glucose 96 mg/dL (65-115); Osmolality Calculated 288 mOsm/kg (285-295); Sodium 140 mmol/L (136-145); Total Bilirubin 0.5 mg/dL (0.15-1.2); Total Protein 5.8 g/dL (6.6-8.7)
[2022-06-21 11:15] LABS: Anion Gap 11.1 (5-19); Aspartate Amino Transferase 21 U/L (0-40); Potassium 3.1 mmol/L (3.5-5.1)
--- NOTE | 2022-06-21 13:16 | ONCRAD EPV_ITS ---
Radiation Oncology Established Patient Visit Patient: Chacorta Siegel [id number] : 1955> Age: 66> Sex: Male> Dictated by: Dr. 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 Initial, Ref. ID: [id number], Energy: 6X, Dose/Fx (cGy): 200, #Fx: 25 / 25, Dose Correction (cGy): 0, Total Dose (cGy): 5,000, Start Date: 03/13/2022, End Date: 04/21/2022, Elapsed Days: 39 Tonsil 2021, Treatment Site: Head & Neck ??? Boost, Ref. ID: [id number], Energy: 6X, Dose/Fx (cGy): 200, #Fx: 10 / 10, Dose Correction (cGy): 0, Total Dose (cGy): 2,000, Start Date: 05/09/2022, End Date: 05/24/2022, Elapsed Days: 15 Current History: Current Medications: Adult Aspirin EC Low Strength, albuterol Sulfate, apixaban, b-12, cholecalciferol, dilTIAZem HCl ER Beads, lidocaine Viscous HCl, lisinopril, metFORMIN HCl ER, miraLax, mometasone Furo-Formoterol Fum, oxyCODONE-Acetaminophen, rosuvastatin Calcium, tiotropium [place] Monohydrate. Allergies: No Known Allergies Current Complaints / Review of Systems: . Mr. Siegel completed the above course of radiation with concomitant cisplatin on 05/24/2022. He is seen in the clinic, but is currently waiting to be hospitalized because of significant aspiration. The patient's symptoms of aspiration do not seem all that significant. He is eating a soft diet and denies difficulty swallowing. He does have some lower throat discomfort when he swallows. A recent CT showed findings that were suggestive of lower lobe pneumonia. He had a swallowing study that showed significant aspiration. He saw Dr. Justice today and hospitalization has been recommended. The patient may well get a feeding tube. In terms of recovery from radiation and chemotherapy, as noted above, he still has a sore throat. His taste has started improving, at least for certain foods. His mouth continues to be very dry. Vital Signs: Performed on 06/21/2022 12:51 PM BMI - 20.468 kg/m2, Height - 65 in, Weight - 123 lbs, Temperature - 97.8 f, Pulse - 130 /min (high), Respiration - 16 /min, O2 Sat - 98 %, Pain - 0, Fatigue - 0 and BP - 89/ 59 mm(hg)(low). Physical Exam: General: Alert and oriented x 3. No acute distress. He appears chronically ill. He is in a wheelchair. HEENT: Normocephalic, atraumatic. Oral cavity exam reveals yeast involving the floor of mouth. No viral ulcerations or lesions. No lesions detected. On exam of the oropharynx, no residual carcinoma noted. The mucous membranes are healed and appear healthy. NECK: Supple without supraclavicular or jugular lymphadenopathy. He has hyperpigmentation and dry desquamation of the skin related to radiation. No areas of moist desquamation. Performance Status: ECOG 3 Lab: None pending. Pathology: Primary, c09.1 - malignant neoplasm of tonsillar pillar (anterior) (posterior), Diagnosed 12/2021 (active) stage iii, t4a, n2c, m0, p16+. Imaging: See HPI Impression: I did not detect any evidence of persistent disease in the oropharynx or neck. Mr. Siegel has developed significant aspiration and is probably going to be admitted to the hospital today. Due to the aspiration, it is likely he will need a feeding tube. He has oral candidiasis. Diflucan intravenously will be recommended. Signed by: 06/21/2022 1:15:37 PM <<Signature on File>> Time spent with patient: CPT Code: CPT Code:
[2022-06-21] MEDS: sodium chlor 0.9% + KCl 40 mEq 40 MEQ/1,000 ML BAG 250 MEQ IV (13:26)
[2022-06-21 15:05] VITALS: BP 96/66; PULSE 104; RESP 18; TEMP 36.1; O2SAT 99
--- NOTE | 2022-06-21 16:23 | PC.NURSE ---
Dr. Justice came back to check on patient. Patient did not want to wait around anymore and wanted to go home instead of being admitted. Dr. Justice told the patient that if he feels weak and can not eat and drink to go to the ER. Patient did not want to continue his Potassium infusion and only received 400 mL of the [address] Justice was good with his discontinuing the IV potassium. THis nurse removed his IV and secured and gauze and coban around the area. Patient left via w/c with his out to private vehicle.
[2022-06-23] MEDS: sodium chloride 0.9% 500 ML 999 ML IV (09:46)
[2022-06-23 10:32] VITALS: BP 102/74; PULSE 122; RESP 18; TEMP 36.6; O2SAT 99
== END 2022-06-24 23:59 | disposition home or self-care (01) ==
PROVIDERS: PCP Family Medicine; Visit Provider Internal Medicine Hematology & Oncology
DX: C09.8 Malignant neoplasm of overlapping sites of tonsil; C77.8 Secondary and unspecified malignant neoplasm of lymph nodes of multiple regions; F17.210 Nicotine dependence, cigarettes, uncomplicated; Z79.899 Other long term (current) drug therapy
CPT/HCPCS: 80053; 81003; 85025; 93971; 96365; 96366; 99215; J7030; J7040

== ENCOUNTER 2022-06-30 09:00 | Oncology outpatient (recurring) (ONCR) | payer MEDICARE, MEDICAID, SELFPAY ==
[2022-06-28] MEDS: sodium chloride 0.9% 500 ML 999 ML IV (11:20)
[2022-06-28 12:10] VITALS: BP 113/79; PULSE 115; RESP 18; TEMP 36.4; O2SAT 99
[2022-06-30] MEDS: sodium chloride 0.9% 500 ML 999 ML IV (09:44)
--- NOTE | 2022-06-30 10:23 | XR_ITS ---
WS: [id number] Chest 2 views, 06/30/2022 Clinical Data: Rule out pneumonia Comparison: Portable chest, 06/09/2022 Findings: No nodules, masses or effusions are seen. The heart is normal. The pulmonary vascularity is not increased. No pneumonia or pneumothorax is seen. The diaphragms are flattened. XR/XR chest 2V* [id number] Impression: Hyperinflation.
[2022-06-30 10:26] VITALS: BP 102/54; PULSE 88; RESP 16; TEMP 36.6; O2SAT 96
--- NOTE | 2022-06-30 10:30 | PC.NURSE ---
Patient presented stating he would like hydration today. Spoke with Dr. Justice and he stated we could provide hydration however patient needs to follow through with prior scheduled testing and follow up for possible aspiration. Spoke with patient regarding need to be evaluated as inpatient admission or ER which he declined stating he is able to better take in fluids and food at this time. Repeat Barium swallow evaluation needed per Dr. Justice. Patient stated he is unsure if he will do it. Patient education provided regarding noncompliance with recommendations, I told him if fever, chills, SOB, increased chest congestion or other symptoms of illness require follow up with urgent care or ER with understanding. Patient states he will follow up this week 07/04/22 with surgical consult with Dr. Gold, and will follow up with ENT doctor in [place] scheduled for 07/06/22.
== END 2022-07-25 23:59 | disposition home or self-care (01) ==
PROVIDERS: PCP Family Medicine; Visit Provider Internal Medicine Hematology & Oncology
DX: E86.0 Dehydration; C09.9 Malignant neoplasm of tonsil, unspecified
CPT/HCPCS: 71046; 96365; J7040

== ENCOUNTER → 2022-07-04 08:07 | Outpatient (BNVA) | payer MEDICARE, MEDICAID, SELFPAY | PROVIDERS: PCP Family Medicine; Visit Provider Surgery | DX: C09.9 Malignant neoplasm of tonsil, unspecified (principal); D64.9 Anemia, unspecified; T17.908A Unspecified foreign body in respiratory tract, part unspecified causing other injury, initial encounter; X58.XXXA Exposure to other specified factors, initial encounter | CPT/HCPCS: 99213 ==

== ENCOUNTER 2022-07-13 09:59 | Outpatient (CLI) | payer MEDICARE, MEDICAID, SELFPAY ==
--- NOTE | 2022-07-13 10:09 | FL_ITS ---
WS: [id number] FL barium swallow modifd [id number] REASON FOR EXAM: Other dysphagia FLUOROSCOPY TIME: 3min [id number] # OF SPOT FILMS: 0 FINDINGS: Patient was examined in the upright lateral projection with swallowing of multiple varying consistenc ies of barium. Examination was supervised by the speech therapy department. During the modified swallowing examination a barium pill was ingested which which did not readily ent ered the stomach from the esophagus. There were moderate tertiary contractions within the distal esop hagus and there appear to be a moderate to significant narrowing. In retrospect there appears to be a somewhat elongated persistent area of narrowing in the distal most esophagus and gastroesophageal ju nction on the previous examination of 03/21/2022. FL/FL barium swallow modifd [id number] IMPRESSION: Detailed analysis and report of the swallowing will be rendered by the speech t herapy department. Distal esophageal abnormality as noted above a follow-up formal barium esophagr am would be appropriate.
== END 2022-07-13 10:00 | disposition home or self-care (01) ==
LOC: RAD 10:02
PROVIDERS: PCP Family Medicine; Visit Provider Surgery
DX: T18.108A Unspecified foreign body in esophagus causing other injury, initial encounter (principal); X58.XXXA Exposure to other specified factors, initial encounter
CPT/HCPCS: 74230; 92611

== ENCOUNTER 2022-08-03 04:42 | Emergency (ER) | payer OTHER, MEDICARE, SELFPAY ==
--- NOTE | 2022-08-03 04:45 | ECG_ITS ---
[facility] Test Date: 2022-08-03 Pat Name: Chacorta Siegel Department: Room: Gender: Male [employer] Farmer: : 1955 Requested By: Sami Giron Order Number: [id number] Jannie MD: Amanda Salomon M.D. Measurements Intervals [place] Rate: 148 P: 85 NM: 122 QRS: 102 QRSD: 77 T: 75 QT: 281 QTc: 441 Interpretive Statements SINUS TACHYCARDIA RIGHT AXIS DEVIATION [QRS AXIS > 100] SEPTAL MYOCARDIAL INFARCTION , PROBABLY OLD [40+ ms Q WAVE IN V1/V2] Compared to ECG 06/10/2022 01:49:50 Right-axis deviation now present Sinus rhythm no longer present Sinus arrhythmia no longer present Myocardial infarct finding still present Electronically Signed On 08-04-2022 7:58:53 CANCER REGISTRY MANAGER by Amanda Salomon M.D. [id number]
[2022-08-03 04:48] VITALS: BP 96/73; PULSE 149; RESP 16; TEMP 36.4; O2SAT 94
--- NOTE | 2022-08-03 05:02 | ECG_ITS ---
[facility] Test Date: 2022-08-03 Pat Name: Chacorta Siegel Department: Room: Gender: Male Senior Clinical Data Analyst: : 1955 Requested By: Sami Giron Order Number: [id number] Jannie MD: Amanda Salomon M.D. Measurements Intervals [place] Rate: 141 P: 83 NH: 126 QRS: 99 QRSD: 79 T: 71 QT: 288 QTc: 442 Interpretive Statements SINUS TACHYCARDIA BORDERLINE RIGHT AXIS DEVIATION [QRS AXIS > 90] ABNORMAL RHYTHM ECG Compared to ECG 08/03/2022 04:55:10 Myocardial infarct finding no longer present Electronically Signed On 08-04-2022 7:58:41 DYE HOUSE WORKER by Amanda Salomon M.D. [id number]
--- NOTE | 2022-08-03 05:07 | W.ED.WEAKNES ---
Documented by User: Sami Giron MD 08/03/22 05:10 HPI - Weakness General: Chief complaint: Weakness Stated complaint: High Heart Rate\Low Blood Pressure Time Seen by Provider: 08/03/22 04:45 Source: patient Mode of arrival: ambulatory Limitations: no limitations History of Present Illness: 66-year-old male with extensive medical history had a history of squamous cell carcinoma of the right tonsil and finished chemoradiation in April he states that he is in remission. He states he does have chronic weakness he has home health he states that his home health yesterday was concerned his heart rate was in the 140s and recommended to go to the hospital yesterday states he did not want to go yesterday and decided to come this morning. He states he is generally weak but states that is chronic in nature he denies any chest pain he has had some shortness of breath he has had anemia in the past and was concerned about his blood level denies any known blood in his stools. He is tachycardic here Associated symptoms: Denies chills, dysuria, easy bruising, fever(s), headache(s), nausea or vomiting Review of Systems Const: Denies: fever(s), chills, body aches or change in appetite Eyes: Denies: blurry vision or eye discomfort ENMT: Denies: throat pain or dental pain Card: Reports: palpitations Resp: Reports: dyspnea GI: Denies: abdominal pain, nausea, vomiting or diarrhea : Denies: dysuria Musc: Reports: muscle weakness Skin/Breast: Denies: rash Neuro: Denies: headache(s) Psych: Denies: depression Paco/Lymph: Denies: easy bruising All/Imm: Denies: urticaria PFSH ED PFSH: Medical History COPD (chronic obstructive pulmonary disease) Coronary artery disease Deep vein thrombosis (DVT) of axillary vein of right upper extremity Diabetes mellitus Elevated PSA Variable levels when checked over time, high and low, has seen Dr Lincoln, not evaluating further at this time as noted per Urology clinic notes Gross hematuria Hyperlipidemia Hypertension GIDEON (obstructive sleep apnea) Presence of other vascular implants and grafts PowerPort left subclavian Dr. Mead 03/07/2022 Squamous cell carcinoma of right tonsil Treated with cisplatin (last dose 05/09/22) and radiation (last treatment 05/24/22); Follows with Dr Justice. Stroke Tachycardia-bradycardia Surgical History History of heart artery stent 1996 History of percutaneous endoscopic gastrostomy With subsequent removal due to leakage and perforation History of surgery on arm History of surgery on lower extremity Family History Mother Cancer lung Father Stroke Sister Cancer lung Other Bleeding disorder Clotting disorder Diabetes Hyperlipidemia Social History Smoking and tobacco status: current every day smoker cigarettes Packs smoked per day: 1.5 Alcohol intake: never Lives independently: Yes Household members: family Marital status: Current occupational status: retired Physical Exam Const: COMMON NORMALS: patient oriented x3 and healthy appearing GENERAL APPEARANCE: ill appearing and frail appearing HENMT: COMMON NORMALS: normocephalic and atraumatic HEAD & SCALP: normocephalic and atraumatic Eye: COMMON NORMALS: Equal, round and reactive pupils present and EOMs intact bilaterally PUPIL: Yes Equal, round and reactive pupils present Neck/C-Spine: COMMON NORMALS: full ROM and supple Chest: COMMONS NORMALS: normal inspection of the chest and normal palpation of entire chest wall Resp: COMMON NORMALS: normal respiratory effort, No retractions, No use of accessory muscles and clear to auscultation bilaterally AUSCULTATION: clear to auscultation bilaterally Cardio: COMMON NORMALS: regular rhythm and No murmurs present (Cardio) RATE: tachycardic RHYTHM: regular rhythm GI: COMMON NORMALS: Normal to inspection, nondistended, normoactive bowel sounds present, Soft to palpation, non-tender and no masses PALPATION: Yes Soft to palpation Extremity: COMMON NORMALS: normal to inspection and full ROM Neuro: COMMON NORMALS: patient oriented x3, moves all extremities and no focal motor deficits Psych: COMMON NORMALS: mental status grossly normal, Normal thought process present and cooperative THOUGHT PROCESS: Normal thought process present Skin: COMMON NORMALS: no rashes or lesions noted and no wounds GENERAL SKIN EXAM: no rashes or lesions noted Course Vital Signs: Vital signs: Vital Signs Temperature 97.6 F 08/03/22 04:48 Pulse Rate 109 H 08/03/22 06:20 Respiratory Rate 16 08/03/22 06:20 Blood Pressure 98/77 08/03/22 06:20 Pulse Oximetry 99 08/03/22 06:20 Oxygen Delivery Me thod 08/03/22 06:20 MDM - Weakness Lab Data 08/03/22 05:00 08/03/22 05:00 Radiology Impressions Chest CTA 08/03/22 05:29 IMPRESSION: 1. No pulmonary artery embolism identified. 2. Left lower lobe and lingular endobronchial mucous plugging. 3. Peripheral consolidative densities and tree in bud densities left lower lobe and lingula. Pneumonitis is likely. Clinical correlation is recommended. 4. Coronary atherosclerosis. 5. Small pericardial effusion. 6. Previous gastric sleeve surgery. ADDENDUM: 08/03/22 0726 CORRECTION: Coronary arteries: Left main, LAD, ramus medianis, LCx and RCA calcified coronary atherosclerosis. Laboratory Results WBC 7.5 10^3/uL (4.0-10.0) 08/03/22 05:00 RBC 3.49 10^6/uL (4.1-5.3) L 08/03/22 05:00 Hgb 11.1 g/dL (11.7-16.6) L 08/03/22 05:00 Hct 34.5 % (42.0-52.0) L 08/03/22 05:00 MCV 98.9 fl (80-94) H 08/03/22 05:00 MCH 31.8 pg (28.0-34.0) 08/03/22 05:00 MCHC 32.2 g/dL (30.0-36.0) 08/03/22 05:00 RDW 14.1 % (12.1-15.1) 08/03/22 05:00 Plt Count 262 10^3/cmm (130-400) 08/03/22 05:00 MPV 9.2 fL (7.4-10.4) 08/03/22 05:00 Neut % (Auto) 76.2 % 08/03/22 05:00 Lymph % (Auto) 11.6 % 08/03/22 05:00 [place] % (Auto) 10.9 % 08/03/22 05:00 Eos % (Auto) 0.1 % 08/03/22 05:00 Baso % (Auto) 0.1 % 08/03/22 05:00 Neut # (Auto) 5.72 10^3/uL (1.8-7.7) 08/03/22 05:00 Lymph # (Auto) 0.9 10^3/uL (0.8-4.8) 08/03/22 05:00 [place] # (Auto) 0.8 10^3/uL (0.2-0.9) 08/03/22 05:00 Eos # (Auto) 0.0 10^3/uL (0.0-0.8) 08/03/22 05:00 Baso # (Auto) 0.0 10^3/uL (0.0-0.1) 08/03/22 05:00 Nucleated RBC % (auto) 0 % 08/03/22 05:00 Nucleated RBCs # 0.0 /100WBC 08/03/22 05:00 D-Dimer 3.49 ug/mIFEU (0-0.59) H 08/03/22 05:00 Sodium 135 mmol/L (136-145) L 08/03/22 05:00 Potassium 4.4 mmol/L (3.5-5.1) 08/03/22 05:00 Chloride 101 mmol/L (98-107) 08/03/22 05:00 Carbon Dioxide 22 mmol/L (22-29) 08/03/22 05:00 Anion Gap 16.4 (5-19) 08/03/22 05:00 BUN 17 mg/dL (8-23) 08/03/22 05:00 Creatinine 0.8 mg/dL (0.7-1.2) 08/03/22 05:00 GFR Calculation 97.0 mL/min (90-130) 08/03/22 05:00 Glucose 118 mg/dL (65-115) H 08/03/22 05:00 Calculated Osmolality 283 mOsm/kg (285-295) L 08/03/22 05:00 Lactate 1.8 mmol/L (0.5-2.2) 08/03/22 05:09 Calcium 8.3 mg/dL (8.5-10.5) L 08/03/22 05:00 Total Bilirubin 0.4 mg/dL (0.15-1.2) 08/03/22 05:00 AST 16 U/L (0-40) 08/03/22 05:00 ALT 9 U/L (0-41) 08/03/22 05:00 Alkaline Phosphatase 196 U/L (40-130) H 08/03/22 05:00 Troponin T Baseline 58 ng/L (0-15) H 08/03/22 05:00 Troponin T 120 Minute 54.43 ng/L (0-15) H 08/03/22 06:56 Delta Troponin T -3.57 ABS# (0-10) L 08/03/22 06:56 Total Protein 5.3 g/dL (6.6-8.7) L 08/03/22 05:00 Albumin 2.2 g/dL (3.5-5.2) L 08/03/22 05:00 Globulin 3.1 g/dL (1.3-4.6) 08/03/22 05:00 Discharge Plan Discharge Patient Disposition: Home Clinical Impression: Pneumonia, Squamous cell carcinoma of right tonsil, COPD (chronic obstructive pulmonary disease), Mucus plugging of bronchi Condition: Stable Prescriptions: New levofloxacin 750 mg tablet 750 mg PO DAILY 7 Days Qty: 7 0RF No Action Lidocaine Viscous 2 % solution 5 ml mucous membrane Q6H PRN (Reason: Pain) Qty: 100 0RF promethazine 25 mg tablet 25 mg PO Q6H PRN (Reason: nausea and vomiting) 30 Days Qty: 90 0RF ondansetron HCl 4 mg tablet 4 mg PO Q6H PRN (Reason: nausea and vomiting) 30 Days Qty: 90 0RF fluconazole [Diflucan] 150 mg tablet 150 mg PO DAILY 14 Days Qty: 14 0RF albuterol sulfate 90 mcg/actuation HFA aerosol inhaler 2 inh INHALATION Q4H PRN (Reason: shortness of breath or wheezing) Qty: 18 0RF acetaminophen 500 mg Tablet 1,000 mg PO BID PRN (Reason: Pain) albuterol sulfate 2.5 mg /3 mL (0.083 %) Solution For Nebulization 2.5 mg INHALATION Q6H PRN (Reason: Shortness Of Breath) aspirin 81 mg Tablet,Delayed Release (Dr/Ec) 81 mg PO QAM cholecalciferol (vitamin D3) [Vitamin D3] 25 mcg (1,000 unit) Tablet 25 mcg PO QPM guaifenesin [Mucinex] 600 mg Tablet Extended Release 12hr 600 mg PO BID PRN (Reason: congestion) 30 Days Qty: 30 0RF potassium chloride 20 mEq tablet extended release 20 meq PO DAILY Qty: 6 0RF cyanocobalamin (vitamin B-12) [Vitamin B-12] 1,000 mcg Tablet 1,000 mcg PO QAM rosuvastatin [Crestor] 20 mg Tablet 10 mg PO QAM Spiriva Respimat 2.5 mcg/actuation Mist 2 inh INHALATION QAM mometasone-formoterol 200-5 mcg/actuation Hfa Aerosol Inhaler 2 puff INHALATION BID polyethylene glycol 3350 [Miralax] 17 gram Powder In Packet 17 g PO DAILY PRN (Reason: Constipation) Discharge Orders: Discharge ED (Routine); Ordered 08/03/22 Ordered By: Roberto Mccauley Referrals: Katrina Gaytan MD [Primary Care Provider] - Discharge Diet: Usual diet Discharge Activity: Increase activity as tolerated Patient Instructions: Opioid Safety, Pain Management Activity Restrictions/Additional Instructions: You were seen today for shortness of breath and rapid heart rate. The CT of your chest did not show any blood clots in the lungs but did show mucous plugging as well as pneumonia. You are given a prescription of Levaquin 750 mg once daily for 1 week for the pneumonia. Case management will make arrangements for follow-up with pulmonology regarding the mucous plugging. This may require a bronchoscopy at some point in the future. Sign Out Sign Out Data: Patient Sign Out occurred on 08/03/22 at 06:14. Patient's care was discussed, and care was transferred from to Roberto Mccauley DO. Coding Level of Care Code ED Diathermy Equipment Repairer for Chg Fwd Documented by User: Roberto Mccauley DO 08/03/22 08:00 HPI - Weakness General: Chief complaint: Weakness Stated complaint: High Heart Rate\Low Blood Pressure Time Seen by Provider: 08/03/22 04:45 [facility] ED [facility]: Medical History COPD (chronic obstructive pulmonary disease) Coronary artery disease Deep vein thrombosis (DVT) of axillary vein of right upper extremity Diabetes mellitus Elevated PSA Variable levels when checked over time, high and low, has seen Dr Lincoln, not evaluating further at this time as noted per Urology clinic notes Gross hematuria Hyperlipidemia Hypertension GIDEON (obstructive sleep apnea) Presence of other vascular implants and grafts PowerPort left subclavian Dr. Mead 03/07/2022 Squamous cell carcinoma of right tonsil Treated with cisplatin (last dose 05/09/22) and radiation (last treatment 05/24/22); Follows with Dr Justice. Stroke Tachycardia-bradycardia Surgical History History of heart artery stent 1996 History of percutaneous endoscopic gastrostomy With subsequent removal due to leakage and perforation History of surgery on arm History of surgery on lower extremity Family History Mother Cancer lung Father Stroke Sister Cancer lung Other Bleeding disorder Clotting disorder Diabetes Hyperlipidemia Social History Smoking and tobacco status: current every day smoker cigarettes Packs smoked per day: 1.5 Alcohol intake: never Lives independently: Yes Household members: family Marital status: Current occupational status: retired Course Vital Signs: Vital signs: Vital Signs Temperature 97.6 F 08/03/22 04:48 Pulse Rate 109 H 08/03/22 06:20 Respiratory Rate 16 08/03/22 06:20 Blood Pressure 98/77 08/03/22 06:20 Pulse Oximetry 99 08/03/22 06:20 Oxygen Delivery Me thod 08/03/22 06:20 MDM - Weakness Medical Decision Making Patient care handoff received from Dr. Giron continuation of ED evaluation. I personally saw and evaluated patient and reperformed jean portions of E/M. Patient is feeling better after fluids. CTA of his chest shows pneumonia with bronchial mucus plugging distally but no pulmonary emboli. Patient wishes to go home he is discharged home on Levaquin 750 mg p.o. daily. He is also advised him follow-up with pulmonology regarding the bronchial mucus plugging. Referral has been sent to case management. Discussed with patient family they expressed understanding. Patient is still mildly tachycardic Blood pressures in the 90s systolic but he is tolerating well and he is insisting on going home discharged home encourage fluids. Medical Records I reviewed the patient's medical records. Lab Data I reviewed the patient's lab results. 08/03/22 05:00 08/03/22 05:00 Radiology Impressions Chest CTA 08/03/22 05:29 IMPRESSION: 1. No pulmonary artery embolism identified. 2. Left lower lobe and lingular endobronchial mucous plugging. 3. Peripheral consolidative densities and tree in bud densities left lower lobe and lingula. Pneumonitis is likely. Clinical correlation is recommended. 4. Coronary atherosclerosis. 5. Small pericardial effusion. 6. Previous gastric sleeve surgery. ADDENDUM: 08/03/22 0726 CORRECTION: Coronary arteries: Left main, LAD, ramus medianis, LCx and RCA calcified coronary atherosclerosis. Laboratory Results WBC 7.5 10^3/uL (4.0-10.0) 08/03/22 05:00 RBC 3.49 10^6/uL (4.1-5.3) L 08/03/22 05:00 Hgb 11.1 g/dL (11.7-16.6) L 08/03/22 05:00 Hct 34.5 % (42.0-52.0) L 08/03/22 05:00 MCV 98.9 fl (80-94) H 08/03/22 05:00 MCH 31.8 pg (28.0-34.0) 08/03/22 05:00 MCHC 32.2 g/dL (30.0-36.0) 08/03/22 05:00 RDW 14.1 % (12.1-15.1) 08/03/22 05:00 Plt Count 262 10^3/cmm (130-400) 08/03/22 05:00 MPV 9.2 fL (7.4-10.4) 08/03/22 05:00 Neut % (Auto) 76.2 % 08/03/22 05:00 Lymph % (Auto) 11.6 % 08/03/22 05:00 [place] % (Auto) 10.9 % 08/03/22 05:00 Eos % (Auto) 0.1 % 08/03/22 05:00 Baso % (Auto) 0.1 % 08/03/22 05:00 Neut # (Auto) 5.72 10^3/uL (1.8-7.7) 08/03/22 05:00 Lymph # (Auto) 0.9 10^3/uL (0.8-4.8) 08/03/22 05:00 [place] # (Auto) 0.8 10^3/uL (0.2-0.9) 08/03/22 05:00 Eos # (Auto) 0.0 10^3/uL (0.0-0.8) 08/03/22 05:00 Baso # (Auto) 0.0 10^3/uL (0.0-0.1) 08/03/22 05:00 Nucleated RBC % (auto) 0 % 08/03/22 05:00 Nucleated RBCs # 0.0 /100WBC 08/03/22 05:00 D-Dimer 3.49 ug/mIFEU (0-0.59) H 08/03/22 05:00 Sodium 135 mmol/L (136-145) L 08/03/22 05:00 Potassium 4.4 mmol/L (3.5-5.1) 08/03/22 05:00 Chloride 101 mmol/L (98-107) 08/03/22 05:00 Carbon Dioxide 22 mmol/L (22-29) 08/03/22 05:00 Anion Gap 16.4 (5-19) 08/03/22 05:00 BUN 17 mg/dL (8-23) 08/03/22 05:00 Creatinine 0.8 mg/dL (0.7-1.2) 08/03/22 05:00 GFR Calculation 97.0 mL/min (90-130) 08/03/22 05:00 Glucose 118 mg/dL (65-115) H 08/03/22 05:00 Calculated Osmolality 283 mOsm/kg (285-295) L 08/03/22 05:00 Lactate 1.8 mmol/L (0.5-2.2) 08/03/22 05:09 Calcium 8.3 mg/dL (8.5-10.5) L 08/03/22 05:00 Total Bilirubin 0.4 mg/dL (0.15-1.2) 08/03/22 05:00 AST 16 U/L (0-40) 08/03/22 05:00 ALT 9 U/L (0-41) 08/03/22 05:00 Alkaline Phosphatase 196 U/L (40-130) H 08/03/22 05:00 Troponin T Baseline 58 ng/L (0-15) H 08/03/22 05:00 Troponin T 120 Minute 54.43 ng/L (0-15) H 08/03/22 06:56 Delta Troponin T -3.57 ABS# (0-10) L 08/03/22 06:56 Total Protein 5.3 g/dL (6.6-8.7) L 08/03/22 05:00 Albumin 2.2 g/dL (3.5-5.2) L 08/03/22 05:00 Globulin 3.1 g/dL (1.3-4.6) 08/03/22 05:00 Discharge Plan Discharge Patient Disposition: Home Clinical Impression: Pneumonia, Squamous cell carcinoma of right tonsil, COPD (chronic obstructive pulmonary disease), Mucus plugging of bronchi Condition: Stable Prescriptions: New levofloxacin 750 mg tablet 750 mg PO DAILY 7 Days Qty: 7 0RF No Action Lidocaine Viscous 2 % solution 5 ml mucous membrane Q6H PRN (Reason: Pain) Qty: 100 0RF promethazine 25 mg tablet 25 mg PO Q6H PRN (Reason: nausea and vomiting) 30 Days Qty: 90 0RF ondansetron HCl 4 mg tablet 4 mg PO Q6H PRN (Reason: nausea and vomiting) 30 Days Qty: 90 0RF fluconazole [Diflucan] 150 mg tablet 150 mg PO DAILY 14 Days Qty: 14 0RF albuterol sulfate 90 mcg/actuation HFA aerosol inhaler 2 inh INHALATION Q4H PRN (Reason: shortness of breath or wheezing) Qty: 18 0RF acetaminophen 500 mg Tablet 1,000 mg PO BID PRN (Reason: Pain) albuterol sulfate 2.5 mg /3 mL (0.083 %) Solution For Nebulization 2.5 mg INHALATION Q6H PRN (Reason: Shortness Of Breath) aspirin 81 mg Tablet,Delayed Release (Dr/Ec) 81 mg PO QAM cholecalciferol (vitamin D3) [Vitamin D3] 25 mcg (1,000 unit) Tablet 25 mcg PO QPM guaifenesin [Mucinex] 600 mg Tablet Extended Release 12hr 600 mg PO BID PRN (Reason: congestion) 30 Days Qty: 30 0RF potassium chloride 20 mEq tablet extended release 20 meq PO DAILY Qty: 6 0RF cyanocobalamin (vitamin B-12) [Vitamin B-12] 1,000 mcg Tablet 1,000 mcg PO QAM rosuvastatin [Crestor] 20 mg Tablet 10 mg PO QAM Spiriva Respimat 2.5 mcg/actuation Mist 2 inh INHALATION QAM mometasone-formoterol 200-5 mcg/actuation Hfa Aerosol Inhaler 2 puff INHALATION BID polyethylene glycol 3350 [Miralax] 17 gram Powder In Packet 17 g PO DAILY PRN (Reason: Constipation) Discharge Orders: Discharge ED (Routine); Ordered 08/03/22 Ordered By: Roberto Mccauley Referrals: Katrina Gaytan MD [Primary Care Provider] - Discharge Diet: Usual diet Discharge Activity: Increase activity as tolerated Patient Instructions: Opioid Safety, Pain Management Activity Restrictions/Additional Instructions: You were seen today for shortness of breath and rapid heart rate. The CT of your chest did not show any blood clots in the lungs but did show mucous plugging as well as pneumonia. You are given a prescription of Levaquin 750 mg once daily for 1 week for the pneumonia. Case management will make arrangements for follow-up with pulmonology regarding the mucous plugging. This may require a bronchoscopy at some point in the future. Sign Out Sign Out Data: Patient Sign Out occurred on 08/03/22 at 06:14. Patient's care was discussed, and care was transferred from to Roberto Mccauley DO. Coding Level of Care Code ED Diathermy Equipment Repairer for Bernice Day
[2022-08-03 05:09] LABS: Basophils % 0.1 %; Eosinophils % 0.1 %; Hematocrit 34.5 % (42.0-52.0); Hemoglobin 11.1 g/dL (11.7-16.6); Lymphocytes # 0.9 10^3/uL (0.8-4.8); Lymphocytes % 11.6 %; Mean Corpuscular HGB Conc 32.2 g/dL (30.0-36.0); Mean Corpuscular Hemoglobin 31.8 pg (28.0-34.0); Mean Corpuscular Volume 98.9 fl (80-94); Mean Platelet Volume 9.2 fL (7.4-10.4); Monocytes # 0.8 10^3/uL (0.2-0.9); Monocytes % 10.9 %; Neutrophils # 5.72 10^3/uL (1.8-7.7); Neutrophils % 76.2 %; Nucleated Red Blood Cells % 0 %; Platelet Count 262 10^3/cmm (130-400); Red Blood Count 3.49 10^6/uL (4.1-5.3); Red Cell Distribution Width 14.1 % (12.1-15.1); White Blood Count 7.5 10^3/uL (4.0-10.0)
[2022-08-03] MEDS: sodium chloride 0.9% 1,000 ML 999 ML IV (05:12)
[2022-08-03 05:13] VITALS: BP 108/75; PULSE 128; RESP 16; O2SAT 94
[2022-08-03 05:27] LABS: D Dimer 3.49 ug/mIFEU (0-0.59)
--- NOTE | 2022-08-03 05:29 | CTR_ITS ---
PROCEDURE INFORMATION: Exam: CTA Chest With Contrast Exam date and time: 08/03/2022 5:53 AM Age: 66 years old Clinical indication: Abnormal findings; Abnormal diagnostic tests; Elevated d-dimer; Shortness of breath; Patient HX: SOB with d dimer of 3.49. Tachycardic on monitor. History of pharyngeal cancer. TECHNIQUE: Imaging protocol: Computed tomographic angiography of the chest with contrast. 3D rendering (Not supervised by radiologist): MIP reconstructed images were created by the technologist. Radiation optimization: All CT scans at this facility use at least one of these dose optimization techniques: automated exposure control; mA and/or kV adjustment per patient size (includes targeted exams where dose is matched to clinical indication); or iterative reconstruction. Contrast material: OMNI 350; Contrast volume: 57 ml; Contrast route: INTRAVENOUS (IV); Other protocol: This patient has received 13 known CTs and 0 known cardiac nuclear medicine studies in the 12 months prior to the current study. COMPARISON: CT angio chest PE prot [id number] 06/06/2022 12:00 PM RADIATION DOSE METRICS: Total DLP (mGy-cm): 213.81 FINDINGS: Pulmonary arteries: No pulmonary artery embolism identified. Aorta: Mild aortic arch, branch, and descending thoracic aortic atherosclerotic calcification without ectasia. Thyroid: The partially imaged bilateral thyroid lobes are heterogeneous without definite nodule. Lungs: Left lower lobe basilar segment endobronchial mucous plugging. Peripheral consolidative density left lower lobe laterally, with more extensive left lower lobe tree in bud densities. Small consolidative density and tree in bud densities with mucous plugging of the lingula. Right middle lobe medial segment, right upper lobe anterior segment peripheral subsegmental atelectasis/linear scarring. Pleural spaces: No pneumothorax. Trace left pleural effusion, nearly resolved compared prior. Heart: Small pericardial effusion. Lymph nodes: Aorticopulmonary window lymph node measuring 8.6 mm short axis. Superior paraesophageal lymph node measuring 5.3 mm short axis. Left hilar granulomatous sheila calcifications are present. Left lower paratracheal lymph node measuring 9.4 mm short axis. Lower paraesophageal lymph node measuring 5 mm short axis. Stomach and bowel: Previous gastric sleeve surgery. Bones/joints: Diffuse osteopenia. Incidental manubriosternal fusion. Thoracic spine vertebral body marginal osteophytes are noted at multiple levels. Nonunion chronic left posterior [place] through fracture. Healed posterolateral left 10th rib fracture. Left main, LAD, ramus medianis, LCx and RCA calcified coronary atherosclerosis. Soft tissues: Unremarkable. CT/CT angio chest PE protcl [id number] IMPRESSION: 1. No pulmonary artery embolism identified. 2. Left lower lobe and lingular endobronchial mucous plugging. 3. Peripheral consolidative densities and tree in bud densities left lower lobe and lingula. Pneumonitis is likely. Clinical correlation is recommended. 4. Coronary atherosclerosis. 5. Small pericardial effusion. 6. Previous gastric sleeve surgery.
[2022-08-03 05:32] LABS: Troponin(5th) Baseline 58 ng/L (0-15)
[2022-08-03 05:36] LABS: Lactate (Lactic Acid level) 1.8 mmol/L (0.5-2.2)
[2022-08-03 05:40] LABS: Alanine Aminotransferase 9 U/L (0-41); Albumin Level 2.2 g/dL (3.5-5.2); Alkaline Phosphatase 196 U/L (40-130); Anion Gap 16.4 (5-19); Aspartate Amino Transferase 16 U/L (0-40); Blood Urea Nitrogen 17 mg/dL (8-23); Calcium 8.3 mg/dL (8.5-10.5); Carbon Dioxide 22 mmol/L (22-29); Chloride 101 mmol/L (98-107); Globulin 3.1 g/dL (1.3-4.6); Glucose 118 mg/dL (65-115); Osmolality Calculated 283 mOsm/kg (285-295); Potassium 4.4 mmol/L (3.5-5.1); Sodium 135 mmol/L (136-145); Total Bilirubin 0.4 mg/dL (0.15-1.2); Total Protein 5.3 g/dL (6.6-8.7)
[2022-08-03] MEDS: iohexol 350 mg/mL 500 mL Btl (per mL) IV (06:03)
[2022-08-03 06:20] VITALS: BP 98/77; PULSE 109; RESP 16; O2SAT 99
--- NOTE | 2022-08-03 07:05 | ECG_ITS ---
[facility] Test Date: 2022-08-03 Pat Name: Chacorta Siegel Department: Room: Gender: Male Elderly Sitter: : 1955 Requested By: Sami Giron Order Number: [id number] Jannie MD: Amanda Salomon M.D. Measurements Intervals [place] Rate: 111 P: 78 NM: 139 QRS: 29 QRSD: 82 T: 57 QT: 338 QTc: 461 Interpretive Statements SINUS TACHYCARDIA INDETERMINATE AXIS LOW QRS VOLTAGE IN EXTREMITY LEADS [QRS DEFLECTION < 0.5 mV IN LIMB LEADS] ANTEROSEPTAL MYOCARDIAL INFARCTION , PROBABLY OLD [40+ ms Q WAVE IN V1-V4] Compared to ECG 08/03/2022 05:11:02 Indeterminate axis now present Low QRS voltage now present Myocardial infarct finding now present Electronically Signed On 08-04-2022 8:16:06 LEATHER CARVER by Amanda Salomon M.D. [id number]
[2022-08-03 07:22] LABS: Troponin 5 2HR 54.43 ng/L (0-15)
[2022-08-03 07:24] LABS: Troponin 5 2HR Delta -3.57 ABS# (0-10)
[2022-08-03] MEDS: acetaminophen 500 mg Tablet 1000 MG PO (07:28)
[2022-08-03 08:00] VITALS: BP 98/77; PULSE 109; RESP 16; O2SAT 99
--- NOTE | 2022-08-03 11:52 | DCPLANNER ---
Addendum entered by Pauline Franklin 10/03/22 07:45: this appointment was cancelled Addendum entered by Pauline Franklin 08/04/22 14:30: Patient has a follow up appointment scheduled for September at 9:[address] Gunter at pulmonology. Clinic will call patient with appointment information. Original Note: manager outpatient had message to schedule a follow up appointment for patient with pulmonology. manager outpatient sent patients information to the front office staff at [facility]. Patients information will be printed and reviewed. Clinic will call patient with appointment information.
== END 2022-08-03 08:01 | disposition home or self-care (01) ==
PROVIDERS: Emergency Medicine; Emergency Provider Family Medicine; PCP Family Medicine
DX: J44.0 Chronic obstructive pulmonary disease with (acute) lower respiratory infection (principal); J18.9 Pneumonia, unspecified organism; R00.0 Tachycardia, unspecified; Z09 Encounter for follow-up examination after completed treatment for conditions other than malignant neoplasm; C09.9 Malignant neoplasm of tonsil, unspecified; F17.210 Nicotine dependence, cigarettes, uncomplicated; R94.31 Abnormal electrocardiogram [ECG] [EKG]; R13.10 Dysphagia, unspecified; T17.590A Other foreign object in bronchus causing asphyxiation, initial encounter; Z12.11 Encounter for screening for malignant neoplasm of colon; J44.9 Chronic obstructive pulmonary disease, unspecified; X58.XXXA Exposure to other specified factors, initial encounter; I25.10 Atherosclerotic heart disease of native coronary artery without angina pectoris; E11.9 Type 2 diabetes mellitus without complications; E78.5 Hyperlipidemia, unspecified; I10 Essential (primary) hypertension; Z86.73 Personal history of transient ischemic attack (TIA), and cerebral infarction without residual deficits
CPT/HCPCS: 36415; 71275; 80053; 83605; 84484; 85025; 85378; 93005; 96360; 99212; 99285; J7030; Q9967

== ENCOUNTER → 2022-08-24 09:22 | Outpatient (BNVA) | payer MEDICARE, MEDICAID, SELFPAY | PROVIDERS: PCP Family Medicine; Visit Provider Nurse Practitioner Family | DX: I25.10 Atherosclerotic heart disease of native coronary artery without angina pectoris (principal); I49.5 Sick sinus syndrome; Z79.899 Other long term (current) drug therapy; I11.0 Hypertensive heart disease with heart failure; I50.9 Heart failure, unspecified; F17.210 Nicotine dependence, cigarettes, uncomplicated; Z79.82 Long term (current) use of aspirin | CPT/HCPCS: 93005; 99214 ==

== ENCOUNTER 2022-08-29 13:23 | Outpatient (CLI) | payer MEDICARE, MEDICAID, SELFPAY ==
[2022-08-29 15:14] LABS: Digoxin 0.3 ng/mL (0.6-1.2)
== END 2022-08-29 13:24 | disposition home or self-care (01) ==
PROVIDERS: PCP Family Medicine; Visit Provider Nurse Practitioner Family
DX: I25.10 Atherosclerotic heart disease of native coronary artery without angina pectoris (principal); I49.5 Sick sinus syndrome; Z79.899 Other long term (current) drug therapy; C09.9 Malignant neoplasm of tonsil, unspecified; R13.10 Dysphagia, unspecified; R63.6 Underweight; Z68.1 Body mass index [BMI] 19.9 or less, adult
CPT/HCPCS: 31575; 36415; 80162; 99204

== ENCOUNTER 2022-08-31 11:26 | Emergency (ER) | payer OTHER, SELFPAY ==
--- NOTE | 2022-08-31 11:31 | ECG_ITS ---
[facility] Test Date: 2022-08-31 Pat Name: Chacorta Siegel Department: Room: Gender: Male Hose Inspector: : 1955 Requested By: Jayesh Luther Order Number: [id number] Jannie MD: Sada Fay M.D. Measurements Intervals [place] Rate: 91 P: 79 TN: 152 QRS: 123 QRSD: 74 T: 62 QT: 349 QTc: 430 Interpretive Statements SINUS RHYTHM POSSIBLE RIGHT VENTRICULAR HYPERTROPHY [SOME/ALL OF: PROMINENT R IN V1, LATE TRANSITION, RAD, TORI, SSS] ANTEROSEPTAL MYOCARDIAL INFARCTION , OF INDETERMINATE AGE [40+ ms Q WAVE IN V1-V4] Compared to ECG 08/03/2022 07:05:05 Sinus tachycardia no longer present Indeterminate axis no longer present Myocardial infarct finding still present Electronically Signed On 08-31-2022 23:40:32 CANDLE MAKING SUPERVISOR by Sada Fay M.D. [id number]
[2022-08-31 11:54] VITALS: BP 76/58; PULSE 142; RESP 16; TEMP 36.7; O2SAT 97
[2022-08-31 12:32] LABS: Basophils % 0.4 %; Eosinophils % 0.4 %; Hematocrit 36.7 % (42.0-52.0); Hemoglobin 11.8 g/dL (11.7-16.6); Lymphocytes # 1.3 10^3/uL (0.8-4.8); Mean Corpuscular HGB Conc 32.2 g/dL (30.0-36.0); Mean Corpuscular Hemoglobin 33.2 pg (28.0-34.0); Mean Corpuscular Volume 103.4 fl (80-94); Mean Platelet Volume 9.4 fL (7.4-10.4); Monocytes # 0.6 10^3/uL (0.2-0.9); Monocytes % 7.7 %; Neutrophils % 73.1 %; Nucleated Red Blood Cells % 0 %; Platelet Count 244 10^3/cmm (130-400); Red Blood Count 3.55 10^6/uL (4.1-5.3); Red Cell Distribution Width 15.5 % (12.1-15.1); White Blood Count 7.3 10^3/uL (4.0-10.0)
[2022-08-31] MEDS: sodium chloride 0.9% 1,000 ML 999 ML IV (12:54)
[2022-08-31 12:56] VITALS: BP 93/60; PULSE 115; RESP 20; O2SAT 98
--- NOTE | 2022-08-31 12:59 | W.ED.GENADLT ---
HPI - General Adult General: Chief complaint: General Medical Stated complaint: states low bloodpressure/high HR Time Seen by Provider: 08/31/22 12:32 Source: patient Mode of arrival: ambulatory History of Present Illness: 67-year-old male presents emergency room complaining of being lightheaded and dizzy states his blood pressures been low and his heart rates been high. 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 Feels like he has not been eating or drinking enough feels very weak and Drize noticed rapid heart rate lightheadedness dizziness and a low blood pressure. Associated symptoms: Deny chest pain, dyspnea, malaise, nausea, rash or vomiting Review of Systems Const: Denies: fever(s), chills, body aches, change in appetite, fatigue or malaise ENMT: Denies: throat pain, ear or mastoid pain, nasal discharge or nasal congestion Card: Denies: chest pain, edema, dyspnea on exertion or orthopnea Resp: Denies: dyspnea, productive cough or non-productive cough GI: Denies: abdominal pain, nausea, vomiting, hematemesis, coffee ground emesis, diarrhea, constipation, bloating, hematochezia or melena : Denies: flank pain, dysuria, urinary frequency or urinary urgency Skin/Breast: Denies: rash or pruritus PFSH ED PFSH: Medical History COPD (chronic obstructive pulmonary disease) Coronary artery disease Deep vein thrombosis (DVT) of axillary vein of right upper extremity Diabetes mellitus Elevated PSA Variable levels when checked over time, high and low, has seen Dr Lincoln, not evaluating further at this time as noted per Urology clinic notes Gross hematuria Hyperlipidemia Hypertension GIDEON (obstructive sleep apnea) Presence of other vascular implants and grafts PowerPort left subclavian Dr. Mead 03/07/2022 Squamous cell carcinoma of right tonsil Treated with cisplatin (last dose 05/09/22) and radiation (last treatment 05/24/22); Follows with Dr Justice. Stroke Tachycardia-bradycardia Surgical History History of heart artery stent 1996 History of percutaneous endoscopic gastrostomy With subsequent removal due to leakage and perforation History of surgery on arm History of surgery on lower extremity Family History Mother Cancer lung Father Stroke Sister Cancer lung Other Bleeding disorder Clotting disorder Diabetes Hyperlipidemia Social History Smoking and tobacco status: current every day smoker cigarettes Packs smoked per day: 1.5 Alcohol intake: never Lives independently: Yes Household members: family Marital status: Current occupational status: retired Physical Exam Const: COMMON NORMALS: no acute distress GENERAL APPEARANCE: cooperative and comfortable ORIENTATION/CONSCIOUSNESS: Yes awake, Yes oriented to person, Yes oriented to place and Yes oriented to time HENMT: COMMON NORMALS: normocephalic, atraumatic and hearing grossly normal bilaterally HEAD & SCALP: normocephalic and atraumatic Resp: COMMON NORMALS: normal respiratory effort, No retractions, No use of accessory muscles and clear to auscultation bilaterally AUSCULTATION: clear to auscultation bilaterally Cardio: COMMON NORMALS: regular rate, regular rhythm and No murmurs present (Cardio) RATE: regular rate RHYTHM: regular rhythm GI: COMMON NORMALS: Soft to palpation and No hepatosplenomegaly present AUSCULTATION: Yes normoactive bowel sounds PALPATION: Yes Soft to palpation, No Tenderness to palpation present (GI), No Guarding due to palpation present (GI) and Yes No hepatosplenomegaly present Extremity: COMMON NORMALS: normal to inspection, capillary refill normal, no clubbing, cyanosis or edema, no calf tenderness and no pedal edema Neuro: SENSORIUM/ORIENTATION: Yes oriented to person, Yes oriented to place and Yes oriented to time Skin: COMMON NORMALS: no rashes or lesions noted GENERAL SKIN EXAM: no rashes or lesions noted Course Vital Signs: Vital signs: Vital Signs Temperature 98.0 F 08/31/22 11:54 Pulse Rate 84 08/31/22 13:36 Respiratory Rate 20 H 08/31/22 13:36 Blood Pressure 106/72 08/31/22 13:36 Pulse Oximetry 93 08/31/22 13:36 Oxygen Delivery Me thod 08/31/22 11:54 MDM - General Adult Medical Decision Making Mildly dehydrated much improved after IV fluids. Incidental finding of mild bladder infection will start Macrobid twice daily. Push fluids offered antiemetics patient states he has plenty at home. His dig level was in a safe range and I do not think that is contributing to it. Reviewed all findings with him we will discharge patient home Lab Data 08/31/22 12:15 08/31/22 12:15 Laboratory Results WBC 7.3 10^3/uL (4.0-10.0) 08/31/22 12:15 RBC 3.55 10^6/uL (4.1-5.3) L 08/31/22 12:15 Hgb 11.8 g/dL (11.7-16.6) 08/31/22 12:15 Hct 36.7 % (42.0-52.0) L 08/31/22 12:15 MCV 103.4 fl (80-94) H 08/31/22 12:15 MCH 33.2 pg (28.0-34.0) 08/31/22 12:15 MCHC 32.2 g/dL (30.0-36.0) 08/31/22 12:15 RDW 15.5 % (12.1-15.1) H 08/31/22 12:15 Plt Count 244 10^3/cmm (130-400) 08/31/22 12:15 MPV 9.4 fL (7.4-10.4) 08/31/22 12:15 Neut % (Auto) 73.1 % 08/31/22 12:15 Lymph % (Auto) 18.0 % 08/31/22 12:15 [place] % (Auto) 7.7 % 08/31/22 12:15 Eos % (Auto) 0.4 % 08/31/22 12:15 Baso % (Auto) 0.4 % 08/31/22 12:15 Neut # (Auto) 5.30 10^3/uL (1.8-7.7) 08/31/22 12:15 Lymph # (Auto) 1.3 10^3/uL (0.8-4.8) 08/31/22 12:15 [place] # (Auto) 0.6 10^3/uL (0.2-0.9) 08/31/22 12:15 Eos # (Auto) 0.0 10^3/uL (0.0-0.8) 08/31/22 12:15 Baso # (Auto) 0.0 10^3/uL (0.0-0.1) 08/31/22 12:15 Nucleated RBC % (auto) 0 % 08/31/22 12:15 Nucleated RBCs # 0.0 /100WBC 08/31/22 12:15 Sodium 138 mmol/L (136-145) 08/31/22 12:15 Potassium 4.2 mmol/L (3.5-5.1) 08/31/22 12:15 Chloride 102 mmol/L (98-107) 08/31/22 12:15 Carbon Dioxide 25 mmol/L (22-29) 08/31/22 12:15 Anion Gap 15.2 (5-19) 08/31/22 12:15 BUN 13 mg/dL (8-23) 08/31/22 12:15 Creatinine 0.7 mg/dL (0.7-1.2) 08/31/22 12:15 GFR Calculation 112.8 mL/min (90-130) 08/31/22 12:15 Glucose 107 mg/dL (65-115) 08/31/22 12:15 Calculated Osmolality 287 mOsm/kg (285-295) 08/31/22 12:15 Calcium 8.2 mg/dL (8.5-10.5) L 08/31/22 12:15 Total Bilirubin 0.3 mg/dL (0.15-1.2) 08/31/22 12:15 AST 24 U/L (0-40) 08/31/22 12:15 ALT 12 U/L (0-41) 08/31/22 12:15 Alkaline Phosphatase 117 U/L (40-130) 08/31/22 12:15 NT-Pro-B Natriuret Pep 1020 pg/mL (0-125) H 08/31/22 12:15 Total Protein 5.7 g/dL (6.6-8.7) L 08/31/22 12:15 Albumin 2.2 g/dL (3.5-5.2) L 08/31/22 12:15 Globulin 3.5 g/dL (1.3-4.6) 08/31/22 12:15 TSH 2.53 uIU/mL (0.27-4.20) 08/31/22 12:15 Urine Color Dark yellow (Yellow) 08/31/22 13:23 Urine Appearance Hazy (CLEAR) A 08/31/22 13:23 Urine pH 5 (5-7) 08/31/22 13:23 Ur Specific [place] 1.025 (1.005-1.030) 08/31/22 13:23 Urine Protein Neg (Negative) 08/31/22 13:23 Urine Glucose (UA) Norm (Normal) 08/31/22 13:23 Urine Ketones 1+ (Negative) H 08/31/22 13:23 Urine Blood 2+ (Negative) H 08/31/22 13:23 Urine Nitrate Negative (Negative) 08/31/22 13:23 Urine Bilirubin Neg (Negative) 08/31/22 13:23 Urine Urobilinogen 1 mg/dL (Negative) H 08/31/22 13:23 Ur Leukocyte Esterase 1+ (Negative) H 08/31/22 13:23 Urine RBC 10-15 /hpf (0-2) H 08/31/22 13:23 Urine WBC 10-15 /hpf (0-5) H 08/31/22 13:23 Ur Squamous Epith Cells 0-4 /hpf (0-5) H 08/31/22 13:23 Amorphous Sediment Not Reportable 08/31/22 13:23 Urine Bacteria Trace /hpf (NONE) 08/31/22 13:23 Digoxin 0.7 ng/mL (0.6-1.2) 08/31/22 12:15 Discharge Plan Discharge Patient Disposition: Home Clinical Impression: Acute dehydration, Squamous cell carcinoma of right tonsil, Cystitis Condition: Stable Prescriptions: New Macrobid 100 mg capsule 100 mg PO BID 7 Days Qty: 14 0RF Rx Instructions: must administer with a meal/food No Action metformin 500 mg tablet 250 mg PO DAILY ferrous sulfate [FeroSul] 325 mg (65 mg iron) tablet 325 mg PO DAILY digoxin 62.5 mcg (0.0625 mg) tablet 62.5 mcg PO DAILY Qty: 30 3RF Lidocaine Viscous 2 % solution 5 ml mucous membrane Q6H PRN (Reason: Pain) Qty: 100 0RF promethazine 25 mg tablet 25 mg PO Q6H PRN (Reason: nausea and vomiting) 30 Days Qty: 90 0RF ondansetron HCl 4 mg tablet 4 mg PO Q6H PRN (Reason: nausea and vomiting) 30 Days Qty: 90 0RF albuterol sulfate 90 mcg/actuation HFA aerosol inhaler 2 inh INHALATION Q4H PRN (Reason: shortness of breath or wheezing) Qty: 18 0RF acetaminophen 500 mg Tablet 1,000 mg PO BID PRN (Reason: Pain) albuterol sulfate 2.5 mg /3 mL (0.083 %) Solution For Nebulization 2.5 mg INHALATION Q6H PRN (Reason: Shortness Of Breath) aspirin 81 mg Tablet,Delayed Release (Dr/Ec) 81 mg PO QAM cholecalciferol (vitamin D3) [Vitamin D3] 25 mcg (1,000 unit) Tablet 25 mcg PO QPM guaifenesin [Mucinex] 600 mg Tablet Extended Release 12hr 600 mg PO BID PRN (Reason: congestion) 30 Days Qty: 30 0RF cyanocobalamin (vitamin B-12) [Vitamin B-12] 1,000 mcg Tablet 1,000 mcg PO QAM rosuvastatin [Crestor] 20 mg Tablet 10 mg PO QAM Spiriva Respimat 2.5 mcg/actuation Mist 2 inh INHALATION QAM polyethylene glycol 3350 [Miralax] 17 gram Powder In Packet 17 g PO DAILY PRN (Reason: Constipation) Discharge Orders: Discharge ED (Routine); Ordered 08/31/22 Ordered By: Roberto Mccauley Referrals: Katrina Gaytan MD [Primary Care Provider] - Discharge Diet: Usual diet Discharge Activity: Resume usual activity Patient Instructions: Opioid Safety, Pain Management Activity Restrictions/Additional Instructions: You are seen today for weakness and rapid heart rate and low blood pressure your symptoms all improved after IV fluid infusion. 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
[2022-08-31 13:11] LABS: Alanine Aminotransferase 12 U/L (0-41); Albumin Level 2.2 g/dL (3.5-5.2); Alkaline Phosphatase 117 U/L (40-130); Anion Gap 15.2 (5-19); Aspartate Amino Transferase 24 U/L (0-40); Blood Urea Nitrogen 13 mg/dL (8-23); Calcium 8.2 mg/dL (8.5-10.5); Carbon Dioxide 25 mmol/L (22-29); Chloride 102 mmol/L (98-107); Globulin 3.5 g/dL (1.3-4.6); Glomerular Filtration Rate 112.8 mL/min (90-130); Glucose 107 mg/dL (65-115); NT Pro B Type Natriuretic Pept 1020 pg/mL (0-125); Osmolality Calculated 287 mOsm/kg (285-295); Potassium 4.2 mmol/L (3.5-5.1); Sodium 138 mmol/L (136-145); Thyroid Stimulating Hormone 2.53 uIU/mL (0.27-4.20); Total Bilirubin 0.3 mg/dL (0.15-1.2); Total Protein 5.7 g/dL (6.6-8.7)
[2022-08-31 13:36] VITALS: BP 106/72; PULSE 84; RESP 20; O2SAT 93
[2022-08-31 13:39] LABS: Digoxin 0.7 ng/mL (0.6-1.2)
[2022-08-31 13:54] LABS: Add Urine Microscopic? YES; Bilirubin Urine Neg (Negative); Blood Urine 2+ (Negative); Glucose Urine UA Norm (Normal); Ketones Urine 1+ (Negative); Leukocyte Esterase Urine 1+ (Negative); Nitrate Urine Negative (Negative); Protein Urine Neg (Negative); Specific Gravity, Urine 1.025 (1.005-1.030); Urine Appearance Hazy (CLEAR); Urine Color Dark Yellow (Yellow); Urobilinogen Urine 1 mg/dL (Negative); pH Urine 5 (5-7)
[2022-08-31 13:55] LABS: Add Urine Culture? Yes; Bacteria Urine TRACE /hpf; Squamous Epithelial Cell Urine 0-4 /hpf (0-5)
[2022-08-31 14:27] VITALS: BP 112/69; PULSE 90; RESP 19; O2SAT 92
== END 2022-08-31 14:29 | disposition home or self-care (01) ==
PROVIDERS: Emergency Medicine; Emergency Provider Family Medicine; PCP Family Medicine
DX: N30.90 Cystitis, unspecified without hematuria (principal); C09.9 Malignant neoplasm of tonsil, unspecified; E86.0 Dehydration; Z79.82 Long term (current) use of aspirin; Z79.84 Long term (current) use of oral hypoglycemic drugs; J44.9 Chronic obstructive pulmonary disease, unspecified; I25.10 Atherosclerotic heart disease of native coronary artery without angina pectoris; E11.9 Type 2 diabetes mellitus without complications; E78.5 Hyperlipidemia, unspecified; I10 Essential (primary) hypertension; Z86.73 Personal history of transient ischemic attack (TIA), and cerebral infarction without residual deficits; F17.210 Nicotine dependence, cigarettes, uncomplicated
CPT/HCPCS: 36415; 80053; 80162; 81001; 83880; 84443; 85025; 87040; 87086; 93005; 99284; J7030

== ENCOUNTER 2022-09-07 08:06 | Outpatient (CLI) | payer OTHER, MEDICARE, SELFPAY ==
[2022-09-07 08:47] LABS: Digoxin 0.8 ng/mL (0.6-1.2)
== END 2022-09-07 08:07 | disposition home or self-care (01) ==
LOC: LAB 08:15
PROVIDERS: PCP Family Medicine; Visit Provider Nurse Practitioner Family
DX: I49.5 Sick sinus syndrome (principal); I50.9 Heart failure, unspecified
CPT/HCPCS: 36415; 80162

== ENCOUNTER 2022-10-05 07:06 | Outpatient (CLI) | payer OTHER, SELFPAY ==
--- NOTE | 2022-10-05 | US_ITS ---
WS: [id number] RIGHT UPPER QUADRANT ULTRASOUND HISTORY: Evaluate for HCC. COMPARISON: 01/12/2015, Liver: 11.0 cm in length. Normal size liver. Very slight coarse echotexture throughout the liver. Por angie triads are still evident. No mass. No bile duct dilatation. Portal Vein: Normal hepatopetal flow with monophasic waveform. Gallbladder: Normally distended gallbladder with no stones or wall thickening. CBD: 0.3 cm Pancreas: Poorly visualized. No abnormality identified. Right kidney: 9.3 cm in length. Normal size and echogenicity. No hydronephrosis or mass. Aorta and IVC: Unremarkable abdominal aorta and IVC. No ascites. US/US abdomen limited 62504 IMPRESSION: 1. Very minimal coarse echotexture throughout the liver suggesting mild hepato cellular disease. No mass or bile duct dilatation. 2. Negative gallbladder.
== END 2022-10-05 07:07 | disposition home or self-care (01) ==
PROVIDERS: PCP Family Medicine; Visit Provider Family Medicine
DX: K76.9 Liver disease, unspecified (principal); J44.9 Chronic obstructive pulmonary disease, unspecified; I25.10 Atherosclerotic heart disease of native coronary artery without angina pectoris; E11.9 Type 2 diabetes mellitus without complications
CPT/HCPCS: 76705

== ENCOUNTER 2022-11-25 13:25 | Emergency (ER) | payer OTHER, SELFPAY ==
[2022-11-25 13:34] VITALS: BP 93/62; PULSE 125; RESP 22; TEMP 36.9; O2SAT 95; BMI 17.9
--- NOTE | 2022-11-25 14:17 | ED_ITS ---
HPI - General Adult General: Chief complaint: Airway/Esophagus Foreign Body Stated complaint: Swollen neck, hard to breath Time Seen by Provider: 11/25/22 13:44 History of Present Illness: This patient is a 67 year old presenting with throat swelling. he has a history of squamous cell cancer of the tonsil that was treated with chemo and radiation. He says that he finished his treatments in April 2022. He says that they stopped treatment early because they burned him. He says that he had no swelling in his throat at the time that he finished treatment. He comes in today due to swelling under his jaw that he noted over the past few days. He says it moves around on the anterior and lateral neck. He says that sometimes it gets soft and then moves to another spot and gets hard - then gets soft and moves again. He has trouble breathing when he tips his head back or turns to the left. He has not difficulty swallowing. he has had problems with dry mouth since his radiation. He is edentulous. PFS ED PFSH: Medical History COPD (chronic obstructive pulmonary disease) Coronary artery disease Deep vein thrombosis (DVT) of axillary vein of right upper extremity Diabetes mellitus Elevated PSA Variable levels when checked over time, high and low, has seen Dr Lincoln, not evaluating further at this time as noted per Urology clinic notes Gross hematuria Hyperlipidemia Hypertension GIDEON (obstructive sleep apnea) Presence of other vascular implants and grafts PowerPort left subclavian Dr. Mead 03/07/2022 Squamous cell carcinoma of right tonsil Treated with cisplatin (last dose 05/09/22) and radiation (last treatment 05/24/22); Follows with Dr Justice. Stroke Tachycardia-bradycardia Surgical History History of heart artery stent 1996 History of percutaneous endoscopic gastrostomy With subsequent removal due to leakage and perforation History of surgery on arm History of surgery on lower extremity Family History Mother Cancer lung Father Stroke Sister Cancer lung Other Bleeding disorder Clotting disorder Diabetes Hyperlipidemia Social History Smoking and tobacco status: current every day smoker cigarettes Packs smoked p er day: 1.5 Alcohol intake: never Substance/Drug Use: never Lives independently: Yes Household members: family Marital status: Current occupational status: retired Physical Exam Const: COMMON NORMALS: no acute distress, patient oriented x3, no limitations and alert GENERAL APPEARANCE: cooperative and comfortable NUTRITIONAL APPEARANCE: cachectic HENMT: OTHER: orange/yellow patches on the soft palate and posterior tongue - airway widely patent Eye: GENERAL EYE: appearance normal, both eyes and all related structures Neck/C-Spine: COMMON NORMALS: supple, no meningeal signs and no JVD Chest: COMMONS NORMALS: normal inspection of the chest Resp: COMMON NORMALS: normal respiratory effort, No use of accessory muscles and clear to auscultation bilaterally AUSCULTATION: clear to auscultation bilaterally Cardio: COMMON NORMALS: no JVD, regular rate, regular rhythm and No murmurs present (Cardio) RATE: regular rate RHYTHM: regular rhythm GI: COMMON NORMALS: Normal to inspection, nondistended, normoactive bowel sounds present, Soft to palpation and non-tender INSPECTION: Yes normal to inspection AUSCULTATION: Yes normoactive bowel sounds PALPATION: Yes Soft to palpation Back/Pelvis: COMMON NORMALS: thoracic and lumbar spine normal to inspection Extremity: COMMON NORMALS: normal to inspection (cachexia) Neuro: COMMON NORMALS: patient oriented x3, moves all extremities, no focal motor deficits and no sensory deficits noted SENSORIUM/ORIENTATION: Yes alert MENINGEAL SIGNS: Yes no meningeal signs Psych: COMMON NORMALS: mental status grossly normal, cooperative and normal affect Skin: COMMON NORMALS: no rashes or lesions noted and turgor normal GENERAL SKIN EXAM: no rashes or lesions noted and turgor normal Course Vital Signs: Vital signs: Vital Signs Temperature 98.5 F 11/25/22 13:34 Pulse Rate 118 H 11/25/22 15:20 Respiratory Rate 16 11/25/22 15:20 Blood Pressure 111/67 11/25/22 15:20 Pulse Oximetry 96 11/25/22 15:20 Oxygen Delivery Me thod Room Air 11/25/22 15:05 MDM - General Adult Medical Decision Making Patient with no respiratory distress - he is able to swallow and is not having any stridor or trouble breathing. Labs ordered to evaluate renal function and WBC - CT soft tissue neck ordered to evaluate for mass, abscess. Patient was unpleasant with staff and says that he is leaving at 4 pm no matter what. Lab Data 11/25/22 12:15 11/25/22 12:15 Laboratory Results WBC 11.8 10^3/uL (4.0-10.0) H 11/25/22 12:15 RBC 3.91 10^6/uL (4.1-5.3) L 11/25/22 12:15 Hgb 11.9 g/dL (11.7-16.6) 11/25/22 12:15 Hct 37.0 % (42.0-52.0) L 11/25/22 12:15 MCV 94.6 fl (80-94) H 11/25/22 12:15 MCH 30.4 pg (28.0-34.0) 11/25/22 12:15 MCHC 32.2 g/dL (30.0-36.0) 11/25/22 12:15 RDW 13.4 % (12.1-15.1) 11/25/22 12:15 Plt Count 374 10^3/cmm (130-400) 11/25/22 12:15 MPV 9.3 fL (7.4-10.4) 11/25/22 12:15 Neut % (Auto) 80.4 % 11/25/22 12:15 Lymph % (Auto) 9.1 % 11/25/22 12:15 [place] % (Auto) 6.5 % 11/25/22 12:15 Eos % (Auto) 3.0 % 11/25/22 12:15 Baso % (Auto) 0.4 % 11/25/22 12:15 Neut # (Auto) 9.48 10^3/uL (1.8-7.7) H 11/25/22 12:15 Lymph # (Auto) 1.1 10^3/uL (0.8-4.8) 11/25/22 12:15 [place] # (Auto) 0.8 10^3/uL (0.2-0.9) 11/25/22 12:15 Eos # (Auto) 0.4 10^3/uL (0.0-0.8) 11/25/22 12:15 Baso # (Auto) 0.1 10^3/uL (0.0-0.1) 11/25/22 12:15 Nucleated RBC % (auto) 0 % 11/25/22 12:15 Nucleated RBCs # 0.0 /100WBC 11/25/22 12:15 Sodium 137 mmol/L (136-145) 11/25/22 12:15 Potassium 4.6 mmol/L (3.5-5.1) 11/25/22 12:15 Chloride 95 mmol/L (98-107) L 11/25/22 12:15 Carbon Dioxide 31 mmol/L (22-29) H 11/25/22 12:15 Anion Gap 15.6 (5-19) 11/25/22 12:15 BUN 43 mg/dL (8-23) H 11/25/22 12:15 Creatinine 0.6 mg/dL (0.7-1.2) L 11/25/22 12:15 GFR Calculation 134.8 mL/min (90-130) H 11/25/22 12:15 Glucose 138 mg/dL (65-115) H 11/25/22 12:15 Calculated Osmolality 297 mOsm/kg (285-295) H 11/25/22 12:15 Calcium 10.1 mg/dL (8.5-10.5) 11/25/22 12:15 Total Bilirubin 0.2 mg/dL (0.15-1.2) 11/25/22 12:15 AST 22 U/L (0-40) 11/25/22 12:15 ALT 22 U/L (0-41) 11/25/22 12:15 Alkaline Phosphatase 125 U/L (40-130) 11/25/22 12:15 Total Protein 7.3 g/dL (6.6-8.7) 11/25/22 12:15 Albumin 3.5 g/dL (3.5-5.2) 11/25/22 12:15 Globulin 3.8 g/dL (1.3-4.6) 11/25/22 12:15 Discharge Plan Discharge Patient Disposition: Left Against Medical Advice Clinical Impression: Squamous cell carcinoma of right tonsil, Swelling of throat Condition: Stable Prescriptions: No Action metformin 500 mg tablet 250 mg PO DAILY ferrous sulfate [FeroSul] 325 mg (65 mg iron) tablet 325 mg PO DAILY Lidocaine Viscous 2 % solution 5 ml mucous membrane Q6H PRN (Reason: Pain) Qty: 100 0RF promethazine 25 mg tablet 25 mg PO Q6H PRN (Reason: nausea and vomiting) 30 Days Qty: 90 0RF ondansetron HCl 4 mg tablet 4 mg PO Q6H PRN (Reason: nausea and vomiting) 30 Days Qty: 90 0RF digoxin 62.5 mcg (0.0625 mg) tablet 62.5 mcg PO DAILY Qty: 30 3RF albuterol sulfate 90 mcg/actuation HFA aerosol inhaler 2 inh INHALATION Q4H PRN (Reason: shortness of breath or wheezing) Qty: 18 0RF acetaminophen 500 mg Tablet 1,000 mg PO BID PRN (Reason: Pain) albuterol sulfate 2.5 mg /3 mL (0.083 %) Solution For Nebulization 2.5 mg INHALATION Q6H PRN (Reason: Shortness Of Breath) aspirin 81 mg Tablet,Delayed Release (Dr/Ec) 81 mg PO QAM cholecalciferol (vitamin D3) [Vitamin D3] 25 mcg (1,000 unit) Tablet 25 mcg PO QPM guaifenesin [Mucinex] 600 mg Tablet Extended Release 12hr 600 mg PO BID PRN (Reason: congestion) 30 Days Qty: 30 0RF cyanocobalamin (vitamin B-12) [Vitamin B-12] 1,000 mcg Tablet 1,000 mcg PO QAM rosuvastatin [Crestor] 20 mg Tablet 10 mg PO QAM Spiriva Respimat 2.5 mcg/actuation Mist 2 inh INHALATION QAM polyethylene glycol 3350 [Miralax] 17 gram Powder In Packet 17 g PO DAILY PRN (Reason: Constipation) Referrals: Katrina Gaytan MD [Primary Care Provider] - Coding Level of Care Code ED Optical Glass Silverer for Chg Fwjimbo
[2022-11-25 14:38] LABS: Basophils # 0.1 10^3/uL (0.0-0.1); Basophils % 0.4 %; Eosinophils # 0.4 10^3/uL (0.0-0.8); Hemoglobin 11.9 g/dL (11.7-16.6); Lymphocytes # 1.1 10^3/uL (0.8-4.8); Lymphocytes % 9.1 %; Mean Corpuscular HGB Conc 32.2 g/dL (30.0-36.0); Mean Corpuscular Hemoglobin 30.4 pg (28.0-34.0); Mean Corpuscular Volume 94.6 fl (80-94); Mean Platelet Volume 9.3 fL (7.4-10.4); Monocytes # 0.8 10^3/uL (0.2-0.9); Monocytes % 6.5 %; Neutrophils # 9.48 10^3/uL (1.8-7.7); Neutrophils % 80.4 %; Nucleated Red Blood Cells % 0 %; Platelet Count 374 10^3/cmm (130-400); Red Blood Count 3.91 10^6/uL (4.1-5.3); Red Cell Distribution Width 13.4 % (12.1-15.1); White Blood Count 11.8 10^3/uL (4.0-10.0)
[2022-11-25 15:05] VITALS: BP 111/67; PULSE 118; RESP 16; O2SAT 96
[2022-11-25 15:06] LABS: Alanine Aminotransferase 22 U/L (0-41); Albumin Level 3.5 g/dL (3.5-5.2); Alkaline Phosphatase 125 U/L (40-130); Anion Gap 15.6 (5-19); Aspartate Amino Transferase 22 U/L (0-40); Blood Urea Nitrogen 43 mg/dL (8-23); Calcium 10.1 mg/dL (8.5-10.5); Carbon Dioxide 31 mmol/L (22-29); Chloride 95 mmol/L (98-107); Globulin 3.8 g/dL (1.3-4.6); Glomerular Filtration Rate 134.8 mL/min (90-130); Glucose 138 mg/dL (65-115); Osmolality Calculated 297 mOsm/kg (285-295); Potassium 4.6 mmol/L (3.5-5.1); Sodium 137 mmol/L (136-145); Total Bilirubin 0.2 mg/dL (0.15-1.2); Total Protein 7.3 g/dL (6.6-8.7)
[2022-11-25 15:20] VITALS: BP 111/67; PULSE 118; RESP 16; O2SAT 96
== END 2022-11-25 15:23 | disposition left against medical advice (07) ==
PROVIDERS: Emergency Provider Emergency Medicine; PCP Family Medicine
DX: C09.9 Malignant neoplasm of tonsil, unspecified (principal); F17.210 Nicotine dependence, cigarettes, uncomplicated; R22.0 Localized swelling, mass and lump, head; Z53.29 Procedure and treatment not carried out because of patient's decision for other reasons
CPT/HCPCS: 80053; 85025; 99283

== ENCOUNTER 2022-11-27 08:44 | Emergency (ER) | payer OTHER, SELFPAY ==
[2022-11-27 08:51] VITALS: BP 85/60; PULSE 129; RESP 19; TEMP 36.5; O2SAT 96; BMI 18.8
[2022-11-27 08:54] VITALS: BP 86/57; PULSE 130; RESP 16; O2SAT 96
--- NOTE | 2022-11-27 09:04 | ECG_ITS ---
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 Measurements Intervals [place] Rate: 124 P: 85 DE: 146 QRS: 242 QRSD: 81 T: 79 QT: 301 QTc: 433 Interpretive Statements SINUS TACHYCARDIA RIGHT VENTRICULAR HYPERTROPHY [SOME/ALL OF: PROMINENT R IN V1, LATE TRANSITION, RAD, TORI, SSS] ANTEROSEPTAL MYOCARDIAL INFARCTION , OF INDETERMINATE AGE [40+ ms Q WAVE IN V1-V4] Compared to ECG 08/31/2022 13:17:23 Sinus rhythm no longer present Myocardial infarct finding still present Electronically Signed On 11-27-2022 16:43:58 CDT by Livan Napier M.D. [id number]
--- NOTE | 2022-11-27 09:07 | ED_ITS ---
HPI - General Adult General: Chief complaint: General Medical Stated complaint: throat pain, trouble swallowing Time Seen by Provider: 11/27/22 08:47 Source: patient Mode of arrival: ambulatory History of Present Illness: 67-year-old male presents emergency room from the CT clinic. He was seen yesterday with complaints of swelling in his throat for the last 3 to 4 weeks.. He has a history of known squamous cell CA of the pharynx. He completed treatment he tells me last April he has had follow-up in the interim with Dr. Rosen in August. He was here yesterday with same complaint left AGAINST MEDICAL ADVICE. He does have a PEG tube in place is able to speak and swallow has no respiratory distress. He was noted on arrival here to be tachycardic. He is on digoxin there is no documented history in our records of him having atrial fibrillation in the past. Location: neck Quality: aching Pain Consistency: intermittent Relieving factors: none Exacerbating factors: none Associated symptoms: Reports palpitations; Deny chest pain, confusion, cough, diaphoresis, decreased appetite, dyspnea, fevers/chills, headache(s), malaise, nausea, rash, seizures, short of breath, syncope, vomiting or weakness Treatments prior to arrival: none Review of Systems Const: Denies: fever(s), chills, fatigue, malaise or diaphoresis ENMT: Reports: hoarseness; Denies: odynophagia Card: Reports: palpitations and irregular heart rhythm; Denies: chest pain, edema, swelling of feet/ankles or syncope Resp: Denies: dyspnea GI: Denies: abdominal pain, nausea or vomiting Skin/Breast: Denies: rash Neuro: Denies: headache(s) or confusion PFS ED PFSH: Medical History COPD (chronic obstructive pulmonary disease) Coronary artery disease Deep vein thrombosis (DVT) of axillary vein of right upper extremity Diabetes mellitus Elevated PSA Variable levels when checked over time, high and low, has seen Dr Lincoln, not evaluating further at this time as noted per Urology clinic notes Gross hematuria Hyperlipidemia Hypertension GIDEON (obstructive sleep apnea) Presence of other vascular implants and grafts PowerPort left subclavian Dr. Mead 03/07/2022 Squamous cell carcinoma of right tonsil Treated with cisplatin (last dose 05/09/22) and radiation (last treatment 05/24/22); Follows with Dr Justice. Stroke Tachycardia-bradycardia Surgical History History of heart artery stent 1996 History of percutaneous endoscopic gastrostomy With subsequent removal due to leakage and perforation History of surgery on arm History of surgery on lower extremity Family History Mother Cancer lung Father Stroke Sister Cancer lung Other Bleeding disorder Clotting disorder Diabetes Hyperlipidemia Social History Smoking and tobacco status: current every day smoker cigarettes Packs smoked per day: 1.5 Alcohol intake: never Substance/Drug Use: never Lives independently: Yes Household members: family Marital status: Current occupational status: retired Physical Exam Const: GENERAL APPEARANCE: cooperative and comfortable ORIENTATION/CONSCIO USNESS: Yes awake, Yes oriented to person, Yes oriented to place and Yes oriented to time HENMT: COMMON NORMALS: normocephalic, atraumatic and hearing grossly normal bilaterally HEAD & SCALP: normocephalic and atraumatic Neck/C-Spine: OTHER: Firm soft tissue swelling more notable on the left side of the neck than the right. No significant tenderness on palpation. Resp: COMMON NORMALS: normal respiratory effort, No retractions, No use of accessory muscles and clear to auscultation bilaterally AUSCULTATION: clear to auscultation bilaterally Cardio: RATE: tachycardic RHYTHM: abnormal rhythm irregularly irregular GI: COMMON NORMALS: Soft to palpation and No hepatosplenomegaly present AUSCULTATION: Yes normoactive bowel sounds PALPATION: Yes Soft to palpation, No Tenderness to palpation present (GI), No Guarding due to palpation present (GI) and Yes No hepatosplenomegaly present OTHER: PEG tube left epigastric region Extremity: COMMON NORMALS: normal to inspection, capillary refill normal, no clubbing, cyanosis or edema, no calf tenderness and no pedal edema Neuro: SENSORIUM/ORIENTATION: Yes oriented to person, Yes oriented to place and Yes oriented to time Skin: COMMON NORMALS: no rashes or lesions noted GENERAL SKIN EXAM: no rashes or lesions noted Course Vital Signs: Vital signs: Vital Signs Temperature 97.7 F 11/27/22 08:51 Pulse Rate 112 H 11/27/22 09:58 Respiratory Rate 16 11/27/22 08:54 Blood Pressure 86/57 11/27/22 08:54 Pulse Oximetry 96 11/27/22 09:58 Oxygen Delivery Me thod Room Air 11/27/22 08:54 MDM - General Adult Medical Decision Making Patient once again is anxious to be discharged to was here 2 days ago and essentially left AMA. He has had the swelling in his neck for several weeks you to follow-up with Dr. Rosen in August. He still is able to swallow and talk he has no difficulty with hoarseness. He is largely been using his PEG tube for nutrition he is not having difficulty with that. He is anxious to leave again we will set him up for referral back to Dr. Rosen to reevaluate and also set up for outpatient CT of the soft tissues of the neck with IV contrast to reevaluate. If he has worsening of his symptoms return to the emergency room Medical Records I reviewed the patient's medical records. Lab Data I reviewed the patient's lab results. 11/27/22 09:15 11/27/22 09:15 Laboratory Results WBC 11.8 10^3/uL (4.0-10.0) H 11/27/22 09:15 RBC 3.89 10^6/uL (4.1-5.3) L 11/27/22 09:15 Hgb 11.9 g/dL (11.7-16.6) 11/27/22 09:15 Hct 36.8 % (42.0-52.0) L 11/27/22 09:15 MCV 94.6 fl (80-94) H 11/27/22 09:15 MCH 30.6 pg (28.0-34.0) 11/27/22 09:15 MCHC 32.3 g/dL (30.0-36.0) 11/27/22 09:15 RDW 13.5 % (12.1-15.1) 11/27/22 09:15 Plt Count 352 10^3/cmm (130-400) 11/27/22 09:15 MPV 8.9 fL (7.4-10.4) 11/27/22 09:15 Neut % (Auto) 80.1 % 11/27/22 09:15 Lymph % (Auto) 9.1 % 11/27/22 09:15 [place] % (Auto) 6.7 % 11/27/22 09:15 Eos % (Auto) 3.2 % 11/27/22 09:15 Baso % (Auto) 0.5 % 11/27/22 09:15 Neut # (Auto) 9.45 10^3/uL (1.8-7.7) H 11/27/22 09:15 Lymph # (Auto) 1.1 10^3/uL (0.8-4.8) 11/27/22 09:15 [place] # (Auto) 0.8 10^3/uL (0.2-0.9) 11/27/22 09:15 Eos # (Auto) 0.4 10^3/uL (0.0-0.8) 11/27/22 09:15 Baso # (Auto) 0.1 10^3/uL (0.0-0.1) 11/27/22 09:15 Nucleated RBC % (auto) 0 % 11/27/22 09:15 Nucleated RBCs # 0.0 /100WBC 11/27/22 09:15 Sodium 132 mmol/L (136-145) L 11/27/22 09:15 Potassium 4.2 mmol/L (3.5-5.1) 11/27/22 09:15 Chloride 91 mmol/L (98-107) L 11/27/22 09:15 Carbon Dioxide 29 mmol/L (22-29) 11/27/22 09:15 Anion Gap 16.2 (5-19) 11/27/22 09:15 BUN 47 mg/dL (8-23) H 11/27/22 09:15 Creatinine 0.8 mg/dL (0.7-1.2) 11/27/22 09:15 GFR Calculation 96.7 mL/min (90-130) 11/27/22 09:15 Glucose 128 mg/dL (65-115) H 11/27/22 09:15 Calculated Osmolality 288 mOsm/kg (285-295) 11/27/22 09:15 Calcium 9.8 mg/dL (8.5-10.5) 11/27/22 09:15 Digoxin 0.5 ng/mL (0.6-1.2) L 11/27/22 09:15 Discharge Plan Discharge Patient Disposition: Home Clinical Impression: Squamous cell carcinoma of right tonsil, Tachycardia-bradycardia Condition: Stable Prescriptions: No Action metformin 500 mg tablet 250 mg PO DAILY ferrous sulfate [FeroSul] 325 mg (65 mg iron) tablet 325 mg PO DAILY Lidocaine Viscous 2 % solution 5 ml mucous membrane Q6H PRN (Reason: Pain) Qty: 100 0RF promethazine 25 mg tablet 25 mg PO Q6H PRN (Reason: nausea and vomiting) 30 Days Qty: 90 0RF ondansetron HCl 4 mg tablet 4 mg PO Q6H PRN (Reason: nausea and vomiting) 30 Days Qty: 90 0RF digoxin 62.5 mcg (0.0625 mg) tablet 62.5 mcg PO DAILY Qty: 30 3RF albuterol sulfate 90 mcg/actuation HFA aerosol inhaler 2 inh INHALATION Q4H PRN (Reason: shortness of breath or wheezing) Qty: 18 0RF acetaminophen 500 mg Tablet 1,000 mg PO BID PRN (Reason: Pain) albuterol sulfate 2.5 mg /3 mL (0.083 %) Solution For Nebulization 2.5 mg INHALATION Q6H PRN (Reason: Shortness Of Breath) aspirin 81 mg Tablet,Delayed Release (Dr/Ec) 81 mg PO QAM cholecalciferol (vitamin D3) [Vitamin D3] 25 mcg (1,000 unit) Tablet 25 mcg PO QPM guaifenesin [Mucinex] 600 mg Tablet Extended Release 12hr 600 mg PO BID PRN (Reason: congestion) 30 Days Qty: 30 0RF cyanocobalamin (vitamin B-12) [Vitamin B-12] 1,000 mcg Tablet 1,000 mcg PO QAM rosuvastatin [Crestor] 20 mg Tablet 10 mg PO QAM Spiriva Respimat 2.5 mcg/actuation Mist 2 inh INHALATION QAM polyethylene glycol 3350 [Miralax] 17 gram Powder In Packet 17 g PO DAILY PRN (Reason: Constipation) Discharge Orders: Discharge ED (Routine); Ordered 11/27/22 Ordered By: Roberto Mccauley Referrals: Katrina Gaytan MD [Primary Care Provider] - Patient Instructions: Opioid Safety, Pain Management Activity Restrictions/Additional Instructions: Patient you were seen today for swelling in his throat. We will schedule you for an outpatient CT of the neck with IV contrast and follow-up with Dr. Rosen. Recommend you increase your free water intake through your PEG tube by another 500 mL/day. Continue your other previously prescribed medications. Coding Level of Care Code ED Nurse Practitioner Adult for Bernice Day
[2022-11-27 09:25] LABS: Basophils # 0.1 10^3/uL (0.0-0.1); Basophils % 0.5 %; Eosinophils # 0.4 10^3/uL (0.0-0.8); Eosinophils % 3.2 %; Hematocrit 36.8 % (42.0-52.0); Hemoglobin 11.9 g/dL (11.7-16.6); Lymphocytes # 1.1 10^3/uL (0.8-4.8); Lymphocytes % 9.1 %; Mean Corpuscular HGB Conc 32.3 g/dL (30.0-36.0); Mean Corpuscular Hemoglobin 30.6 pg (28.0-34.0); Mean Corpuscular Volume 94.6 fl (80-94); Mean Platelet Volume 8.9 fL (7.4-10.4); Monocytes # 0.8 10^3/uL (0.2-0.9); Monocytes % 6.7 %; Neutrophils # 9.45 10^3/uL (1.8-7.7); Neutrophils % 80.1 %; Nucleated Red Blood Cells % 0 %; Platelet Count 352 10^3/cmm (130-400); Red Blood Count 3.89 10^6/uL (4.1-5.3); Red Cell Distribution Width 13.5 % (12.1-15.1); White Blood Count 11.8 10^3/uL (4.0-10.0)
[2022-11-27] MEDS: sodium chloride 0.9% 1,000 ML 999 ML IV (09:25)
[2022-11-27 09:41] LABS: Anion Gap 16.2 (5-19); Blood Urea Nitrogen 47 mg/dL (8-23); Calcium 9.8 mg/dL (8.5-10.5); Carbon Dioxide 29 mmol/L (22-29); Chloride 91 mmol/L (98-107); Digoxin 0.5 ng/mL (0.6-1.2); Glomerular Filtration Rate 96.7 mL/min (90-130); Glucose 128 mg/dL (65-115); Osmolality Calculated 288 mOsm/kg (285-295); Potassium 4.2 mmol/L (3.5-5.1); Sodium 132 mmol/L (136-145)
[2022-11-27 09:58] VITALS: PULSE 112; O2SAT 96
--- NOTE | 2022-11-27 11:51 | DCPLANNER ---
Addendum entered by Pauline Franklin 12/06/22 10:25: Patient had a follow up appointment scheduled with ENT - patient did attend appointment. Addendum entered by Pauline Franklin 12/01/22 10:18: Patient has a follow up appointment scheduled for Thursday, December 01, 2022 at 11:[address] Rosen at ENT. Original Note: sow manager had message to order a CT soft tissue neck with IV contrast, due to history of squamous cell CA and then a follow up with ENT. I am unable to order the CT from the ER due to patient having [facility] insurance. So patient is being referred to ENT with out the CT being ordered. It can be ordered from ENT and the [facility] will pay for it, just not from the ER. sow manager sent patients information to the front office staff at ENT. Patients information will be printed and reviewed. Clinic will call patient with appointment information.
== END 2022-11-27 09:59 | disposition home or self-care (01) ==
PROVIDERS: Emergency Provider Family Medicine; PCP Family Medicine
DX: C09.9 Malignant neoplasm of tonsil, unspecified (principal); R00.0 Tachycardia, unspecified; R00.1 Bradycardia, unspecified
CPT/HCPCS: 80048; 80162; 85025; 93005; 96360; 99284; J7030

== ENCOUNTER 2022-12-01 13:34 | Outpatient (CLI) | payer MEDICARE, MEDICAID, SELFPAY ==
[2022-12-01] MEDS: iohexol 350 mg/mL 500 mL Btl (per mL) IV (13:40)
--- NOTE | 2022-12-01 14:00 | CT_ITS ---
WS: [id number] CT NECK TECHNIQUE: Contrast-enhanced CT of the neck with coronal and sagittal reformatted images. CLINICAL INFORMATION: new onset swelling of neck COMPARISON: CT February 20, 2022 DLP: 140.[address] scans at [facility] use at least one of these dose optimization techniques: automated e xposure control; mA and/or kV adjustment per patient size (includes targeted exams where dose is matc hed to clinical indication); or iterative reconstruction. FINDINGS: Palpable marker overlying the lower midline neck. Underlying induration in the subcutaneous soft tiss ues in this area. No evidence of drainable abscess or fluid collection. Findings likely due to cellul itis or radiation therapy changes. Significant interval improvement in the previously described RIGHT oropharyngeal and tonsillar neopla sm compatible with interval response to therapy. Diffuse edema involving the hypopharynx and supraglo ttic soft tissues. Diffuse mucosal edema involves the epiglottis with thickening. Effacement of the v allecula. Partial effacement of the piriform sinuses. No critical airway stenosis. Glottis and subglo ttic airway are patent. Diffuse edema in the periglottic fat. . Normal parapharyngeal fat. Tongue base appears normal. Normal thyroid gland. No cervical lymphadenopa thy. Mild spondylitic changes cervical spine. Emphysematous changes in the lung apices are well aerat ed. A few patchy opacities in the LEFT lower lobe laterally nonspecific but may be inflammatory. This can be followed up with chest CT. Paranasal sinuses are well aerated. Mastoid air cells are well aerated. ] CT/CT neck w con* [id number] IMPRESSION: 1. No abscess or fluid collection deep to the palpable marker midline neck. Un derlying induration is seen with edema compatible with radiation therapy or pos sibly cellulitis and infection 2. Significant interval improvement in the previously described RIGHT tonsilla r neoplasm. This is essentially resolved compared to previous. 3. Diffuse mucosal edema involving the hypopharynx with diffuse circumferentia l enlargement of the epiglottis. Partial effacement of the piriform sinuses wit h induration in the periglottic fat. Findings likely due to radiation therapy. 4. Trace retropharyngeal fluid. No evidence of retropharyngeal abscess. 5. Normal glottis and subglottic airway 6. No cervical lymphadenopathy. 7. A few inflammatory appearing opacities partially visualized in the LEFT low er lobe laterally. This could be followed up with chest CT.
== END 2022-12-01 13:35 | disposition home or self-care (01) ==
PROVIDERS: PCP Family Medicine; Visit Provider Otolaryngology
DX: D49.0 Neoplasm of unspecified behavior of digestive system (principal); Z92.3 Personal history of irradiation; R91.8 Other nonspecific abnormal finding of lung field; C09.9 Malignant neoplasm of tonsil, unspecified; R22.1 Localized swelling, mass and lump, neck; J39.2 Other diseases of pharynx
CPT/HCPCS: 70491; 99213; Q9967

== ENCOUNTER 2022-12-06 18:02 | Emergency (ER) | payer OTHER, SELFPAY ==
[2022-12-06 18:03] VITALS: BP 107/67; PULSE 117; RESP 35; TEMP 36.7; O2SAT 95; BMI 19.4
--- NOTE | 2022-12-06 18:08 | W.ED.SOB ---
HPI - SOB/Dyspnea General: Chief Complaint: Shortness of Breath/Dyspnea Stated Complaint: sob Time Seen by Provider: 12/06/22 18:08 Source: patient Mode of arrival: EMS Limitations: no limitations History of Present Illness: HPI Narrative: This 67-year-old male with a past history of throat cancer, COPD and CAD presents to the ER with shortness of breath that started around noon today. Patient has not had any breathing treatments since onset of symptoms. He believes the swelling he has on the left side of the neck, which appeared about 2 weeks ago, is partly responsible for it. He denies fever, nausea or vomiting. Associated symptoms: Deny chest pain or lightheadedness Review of Systems Const: Denies: chills, body aches or change in appetite Eyes: Denies: change in vision or eye discharge ENMT: Denies: throat pain, dental pain or nasal discharge Card: Denies: chest pain or lightheadedness Resp: Reports: dyspnea and wheezing : Denies: dysuria Musc: Denies: neck pain or back pain Neuro: Denies: headache(s) or weakness in extremities Psych: Denies: depression Paco/Lymph: Denies: easy bruising All/Imm: Denies: urticaria, tongue swelling or facial swelling PFSH ED PFSH: Medical History COPD (chronic obstructive pulmonary disease) Coronary artery disease Deep vein thrombosis (DVT) of axillary vein of right upper extremity Diabetes mellitus Elevated PSA Variable levels when checked over time, high and low, has seen Dr Lincoln, not evaluating further at this time as noted per Urology clinic notes Gross hematuria Hyperlipidemia Hypertension GIDEON (obstructive sleep apnea) Presence of other vascular implants and grafts PowerPort left subclavian Dr. Mead 03/07/2022 Squamous cell carcinoma of right tonsil Treated with cisplatin (last dose 05/09/22) and radiation (last treatment 05/24/22); Follows with Dr Justice. Stroke Tachycardia-bradycardia Surgical History History of heart artery stent 1996 History of percutaneous endoscopic gastrostomy With subsequent removal due to leakage and perforation History of surgery on arm History of surgery on lower extremity Family History Mother Cancer lung Father Stroke Sister Cancer lung Other Bleeding disorder Clotting disorder Diabetes Hyperlipidemia Social History Smoking and tobacco status: current every day smoker cigarettes Packs smoked per day: 1.5 Alcohol intake: never Substance/Drug Use: never Lives independently: Yes Household members: family Marital status: Current occupational status: retired Physical Exam Const: COMMON NORMALS: no acute distress, patient oriented x3, no limitations and alert HENMT: COMMON NORMALS: normocephalic HEAD & SCALP: normocephalic Eye: COMMON NORMALS: EOMs intact bilaterally Neck/C-Spine: COMMON NORMALS: full ROM and supple Chest: COMMONS NORMALS: normal inspection of the chest Resp: EFFORT & INSPECTION: Yes tachypneic, Yes respiratory distress, Yes labored, Yes audible wheezes and Yes prolonged expiratory phase AUSCULTATION: rales and diminished lung sounds Cardio: COMMON NORMALS: regular rhythm RATE: tachycardic RHYTHM: regular rhythm GI: COMMON NORMALS: Normal to inspection, nondistended, normoactive bowel sounds present and non-tender OTHER: Presence of feeding tube in the left upper quadrant. : COMMON NORMALS: Yes no CVA tenderness BLADDER/KIDNEY EXAM: Yes no CVA tenderness Back/Pelvis: COMMON NORMALS: no CVA tenderness and no thoracic nor lumbar tenderness Extremity: GENERAL: Yes normal exam except as noted Neuro: COMMON NORMALS: patient oriented x3 and no focal motor deficits SENSORIUM/ORIENTATION: Yes alert Psych: COMMON NORMALS: mental status grossly normal and cooperative Course Vital Signs: Vital signs: Vital Signs Temperature 98.0 F 12/06/22 18:03 Pulse Rate 107 H 12/06/22 20:08 Respiratory Rate 24 H 12/06/22 20:08 Blood Pressure 99/66 12/06/22 20:08 Pulse Oximetry 98 12/06/22 20:08 Oxygen Delivery Me thod Nasal Cannula 12/06/22 18:46 Oxygen Flow Rate 2 12/06/22 18:46 MDM - SOB/Dyspnea Medical Decision Making Medical decision making: Patient presents to the ER with shortness of breath that started around noon today. He has a mass on the left side of the neck which he believes is contributing to the shortness of breath. CT neck with IV contrast was ordered to rule out any potential airway compromise from the mass. While waiting for the result, patient became impatient and stated that he wanted to leave. He was made aware of the risks involved with his decision to leave the ER prior to completion of his work-up. He is competent and understands the risks. So, he was allowed to sign out AGAINST MEDICAL ADVICE. He should return if his condition worsens or if he changes his mind. Lab Data 12/06/22 18:35 12/06/22 18:35 Labs/Radiology: Radiology Impressions Chest X-Ray 12/06/22 18:24 IMPRESSION: 1. Mild to moderate left basilar atelectasis and/or infiltrate and/or effusion. 2. Stable COPD . Laboratory Results WBC 12.9 10^3/uL (4.0-10.0) H 12/06/22 18:35 RBC 3.59 10^6/uL (4.1-5.3) L 12/06/22 18:35 Hgb 10.7 g/dL (11.7-16.6) L 12/06/22 18:35 Hct 32.5 % (42.0-52.0) L 12/06/22 18:35 MCV 90.5 fl (80-94) 12/06/22 18:35 MCH 29.8 pg (28.0-34.0) 12/06/22 18:35 MCHC 32.9 g/dL (30.0-36.0) 12/06/22 18:35 RDW 13.3 % (12.1-15.1) 12/06/22 18:35 Plt Count 365 10^3/cmm (130-400) 12/06/22 18:35 MPV 9.0 fL (7.4-10.4) 12/06/22 18:35 Neut % (Auto) 84.4 % 12/06/22 18:35 Lymph % (Auto) 7.1 % 12/06/22 18:35 [place] % (Auto) 6.7 % 12/06/22 18:35 Eos % (Auto) 0.8 % 12/06/22 18:35 Baso % (Auto) 0.3 % 12/06/22 18:35 Neut # (Auto) 10.89 10^3/uL (1.8-7.7) H 12/06/22 18:35 Lymph # (Auto) 0.9 10^3/uL (0.8-4.8) 12/06/22 18:35 [place] # (Auto) 0.9 10^3/uL (0.2-0.9) 12/06/22 18:35 Eos # (Auto) 0.1 10^3/uL (0.0-0.8) 12/06/22 18:35 Baso # (Auto) 0.0 10^3/uL (0.0-0.1) 12/06/22 18:35 Nucleated RBC % (auto) 0 % 12/06/22 18:35 Nucleated RBCs # 0.0 /100WBC 12/06/22 18:35 Sodium 126 mmol/L (136-145) L 12/06/22 18:35 Potassium 5.0 mmol/L (3.5-5.1) 12/06/22 18:35 Chloride 87 mmol/L (98-107) L 12/06/22 18:35 Carbon Dioxide 29 mmol/L (22-29) 12/06/22 18:35 Anion Gap 15.0 (5-19) 12/06/22 18:35 BUN 34 mg/dL (8-23) H 12/06/22 18:35 Creatinine 0.5 mg/dL (0.7-1.2) L 12/06/22 18:35 GFR Calculation 166.4 mL/min (90-130) H 12/06/22 18:35 Glucose 110 mg/dL (65-115) 12/06/22 18:35 Calculated Osmolality 270 mOsm/kg (285-295) L 12/06/22 18:35 Calcium 9.0 mg/dL (8.5-10.5) 12/06/22 18:35 Total Bilirubin 0.2 mg/dL (0.15-1.2) 12/06/22 18:35 AST 47 U/L (0-40) H 12/06/22 18:35 ALT 58 U/L (0-41) H 12/06/22 18:35 Alkaline Phosphatase 204 U/L (40-130) H 12/06/22 18:35 Troponin T Baseline 50 ng/L (0-15) H 12/06/22 18:35 Troponin T 120 Minute 50.72 ng/L (0-15) H 12/06/22 20:09 Delta Troponin T 0.72 ABS# (0-10) 12/06/22 20:09 Total Protein 6.5 g/dL (6.6-8.7) L 12/06/22 18:35 Albumin 3.5 g/dL (3.5-5.2) 12/06/22 18:35 Globulin 3.0 g/dL (1.3-4.6) 12/06/22 18:35 EKG Data EKG 1: Interpretation: 1815 hrs.: Sinus tachycardia, right ventricular hypertrophy, normal axis, no STEMI Discharge Plan Discharge Patient Disposition: Left Against Medical Advice Clinical Impression: Palpable mass of neck, Acute exacerbation of chronic obstructive airways disease Condition: Stable Prescriptions: No Action metformin 500 mg tablet 250 mg PO DAILY ferrous sulfate [FeroSul] 325 mg (65 mg iron) tablet 325 mg PO DAILY Lidocaine Viscous 2 % solution 5 ml mucous membrane Q6H PRN (Reason: Pain) Qty: 100 0RF promethazine 25 mg tablet 25 mg PO Q6H PRN (Reason: nausea and vomiting) 30 Days Qty: 90 0RF ondansetron HCl 4 mg tablet 4 mg PO Q6H PRN (Reason: nausea and vomiting) 30 Days Qty: 90 0RF digoxin 62.5 mcg (0.0625 mg) tablet 62.5 mcg PO DAILY Qty: 30 3RF albuterol sulfate 90 mcg/actuation HFA aerosol inhaler 2 inh INHALATION Q4H PRN (Reason: shortness of breath or wheezing) Qty: 18 0RF acetaminophen 500 mg Tablet 1,000 mg PO BID PRN (Reason: Pain) albuterol sulfate 2.5 mg /3 mL (0.083 %) Solution For Nebulization 2.5 mg INHALATION Q6H PRN (Reason: Shortness Of Breath) aspirin 81 mg Tablet,Delayed Release (Dr/Ec) 81 mg PO QAM cholecalciferol (vitamin D3) [Vitamin D3] 25 mcg (1,000 unit) Tablet 25 mcg PO QPM guaifenesin [Mucinex] 600 mg Tablet Extended Release 12hr 600 mg PO BID PRN (Reason: congestion) 30 Days Qty: 30 0RF cyanocobalamin (vitamin B-12) [Vitamin B-12] 1,000 mcg Tablet 1,000 mcg PO QAM rosuvastatin [Crestor] 20 mg Tablet 10 mg PO QAM Spiriva Respimat 2.5 mcg/actuation Mist 2 inh INHALATION QAM polyethylene glycol 3350 [Miralax] 17 gram Powder In Packet 17 g PO DAILY PRN (Reason: Constipation) Referrals: Katrina Gaytan MD [Primary Care Provider] - Coding Level of Care Code ED Log Yard Derrick Operator for Chg Shay
--- NOTE | 2022-12-06 18:12 | ECG_ITS ---
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 Measurements Intervals [place] Rate: 113 P: 72 TX: 146 QRS: 223 QRSD: 86 T: 66 QT: 299 QTc: 411 Interpretive Statements SINUS TACHYCARDIA RIGHT VENTRICULAR HYPERTROPHY [SOME/ALL OF: PROMINENT R IN V1, LATE TRANSITION, RAD, TORI, SSS] ANTEROSEPTAL MYOCARDIAL INFARCTION , OF INDETERMINATE AGE [40+ ms Q WAVE IN V1-V4] Compared to ECG 11/27/2022 09:08:57 No significant changes Electronically Signed On 12-06-2022 19:45:59 CDT by Livan Napier M.D. [email or web address]
--- NOTE | 2022-12-06 18:15 | PC.NURSE ---
Patient brought back to room, placed on invoice clerk, pulse ox, and BP cuff, and patient placed on 2L O2. EKG being obtained. Primary nurse notified of patient condition.
--- NOTE | 2022-12-06 18:24 | XRR_ITS ---
PROCEDURE INFORMATION: Exam: XR Chest Exam date and time: 12/06/2022 6:28 PM Age: 67 years old Clinical indication: Shortness of breath TECHNIQUE: Imaging protocol: Radiologic exam of the chest. Views: 1 view. COMPARISON: CR XR chest 2V* [id number] 06/30/2022 10:24 AM FINDINGS: Lungs: Mild to moderate left basilar atelectasis and/or infiltrate and/or effusion. Stable COPD . Pleural spaces: Unremarkable. No pleural effusion. No pneumothorax. Heart/Mediastinum: Unremarkable. No cardiomegaly. Vasculature: Calcification of the thoracic aorta and/or great vessels consistent with atherosclerotic vessel disease. Bones/joints: Unremarkable. XR/XR chest 1V portable [id number] IMPRESSION: 1. Mild to moderate left basilar atelectasis and/or infiltrate and/or effusion. 2. Stable COPD .
[2022-12-06] MEDS: ipratropium-albuterol 3 mL Neb INHALATION (18:45)
[2022-12-06 18:46] VITALS: PULSE 101; RESP 17; O2SAT 97
[2022-12-06 18:49] LABS: Basophils % 0.3 %; Eosinophils # 0.1 10^3/uL (0.0-0.8); Eosinophils % 0.8 %; Hematocrit 32.5 % (42.0-52.0); Hemoglobin 10.7 g/dL (11.7-16.6); Lymphocytes # 0.9 10^3/uL (0.8-4.8); Lymphocytes % 7.1 %; Mean Corpuscular HGB Conc 32.9 g/dL (30.0-36.0); Mean Corpuscular Hemoglobin 29.8 pg (28.0-34.0); Mean Corpuscular Volume 90.5 fl (80-94); Monocytes # 0.9 10^3/uL (0.2-0.9); Monocytes % 6.7 %; Neutrophils # 10.89 10^3/uL (1.8-7.7); Neutrophils % 84.4 %; Nucleated Red Blood Cells % 0 %; Platelet Count 365 10^3/cmm (130-400); Red Blood Count 3.59 10^6/uL (4.1-5.3); Red Cell Distribution Width 13.3 % (12.1-15.1); White Blood Count 12.9 10^3/uL (4.0-10.0)
[2022-12-06 18:51] VITALS: PULSE 103
[2022-12-06 19:06] LABS: Troponin(5th) Baseline 50 ng/L (0-15)
[2022-12-06 19:07] LABS: Alanine Aminotransferase 58 U/L (0-41); Albumin Level 3.5 g/dL (3.5-5.2); Alkaline Phosphatase 204 U/L (40-130); Aspartate Amino Transferase 47 U/L (0-40); Blood Urea Nitrogen 34 mg/dL (8-23); Carbon Dioxide 29 mmol/L (22-29); Chloride 87 mmol/L (98-107); Glomerular Filtration Rate 166.4 mL/min (90-130); Glucose 110 mg/dL (65-115); Osmolality Calculated 270 mOsm/kg (285-295); Sodium 126 mmol/L (136-145); Total Bilirubin 0.2 mg/dL (0.15-1.2); Total Protein 6.5 g/dL (6.6-8.7)
--- NOTE | 2022-12-06 19:47 | CTR_ITS ---
PROCEDURE INFORMATION: Exam: CT Neck With Contrast Exam date and time: 12/06/2022 8:27 PM Age: 67 years old Clinical indication: Neck pain; Prior surgery; Surgery date: 6+ months; Surgery type: Throat cancer; Additional info: Left neck swelling TECHNIQUE: Imaging protocol: Computed tomography of the neck with contrast. Radiation optimization: All CT scans at this facility use at least one of these dose optimization techniques: automated exposure control; mA and/or kV adjustment per patient size (includes targeted exams where dose is matched to clinical indication); or iterative reconstruction. Contrast material: OMNI 350; Contrast volume: 100 ml; Contrast route: INTRAVENOUS (IV); REPORTING DATA: Count of CT and Cardiac NM exams in prior 12 months: This patient has received 15 known CTs and 0 known cardiac nuclear medicine studies in the 12 months prior to the current study. COMPARISON: CT neck w con* [id number] 12/01/2022 2:03 PM RADIATION DOSE METRICS: Total DLP (mGy-cm): 188.13 FINDINGS: Pharynx: Again seen is diffuse mucosal edema of the hypopharynx with enlargement of the epiglottis and partial effacement of the piriformis sinuses, similar to prior exam, again likely due to radiation therapy. Larynx: Unremarkable. Epiglottis is normal. Prevertebral and retropharyngeal spaces: Trace retropharyngeal fluid again seen, similar to prior exam. Salivary glands: Normal. Glands are normal in size. Thyroid: Normal. No enlarged or calcified nodules. Lymph nodes: Unremarkable. No lymphadenopathy. Trachea: Visualized trachea is unremarkable. Lungs: Emphysematous changes Bones/joints: Unremarkable. No acute fracture. Soft tissues: Subcutaneous edema seen about the neck left greater than right without focal fluid collection, similar to prior exam. CT/CT neck w con* [id number] IMPRESSION: 1. Again seen is diffuse mucosal edema of the hypopharynx with enlargement of the epiglottis and partial effacement of the piriformis sinuses, similar to prior exam, again likely due to radiation therapy. 2. Subcutaneous edema seen about the neck left greater than right without focal fluid collection, similar to prior exam. 3. Trace retropharyngeal fluid again seen, similar to prior exam. 4. Emphysematous changes
[2022-12-06] MEDS: dexamethasone 10 mg/mL INJ IVP (20:06)
[2022-12-06 20:08] VITALS: BP 99/66; PULSE 107; RESP 24; O2SAT 98
[2022-12-06] MEDS: iohexol 350 mg/mL 500 mL Btl (per mL) IV (20:35)
[2022-12-06 20:40] LABS: Troponin 5 2HR 50.72 ng/L (0-15)
[2022-12-06 20:41] LABS: Troponin 5 2HR Delta 0.72 ABS# (0-10)
== END 2022-12-06 20:58 | disposition left against medical advice (07) ==
PROVIDERS: Emergency Provider Family Medicine; PCP Family Medicine
DX: R22.1 Localized swelling, mass and lump, neck (principal); J44.1 Chronic obstructive pulmonary disease with (acute) exacerbation; F17.210 Nicotine dependence, cigarettes, uncomplicated; Z53.29 Procedure and treatment not carried out because of patient's decision for other reasons
CPT/HCPCS: 36415; 70491; 71045; 80053; 84484; 85025; 93005; 94640; 96374; 99285; J1100; Q9967

== ENCOUNTER 2022-12-08 15:57 | Emergency (ER) | payer OTHER, SELFPAY ==
[2022-12-08 16:02] VITALS: BP 84/54; PULSE 123; RESP 22; TEMP 36.4; O2SAT 93
--- NOTE | 2022-12-08 16:23 | ECG_ITS ---
[facility] Test Date: 2022-12-08 Pat Name: Chacorta Siegel Department: Room: Gender: Male Personal Chef: : 1955 Requested By: Erica Bautista Order Number: [id number] Reading MD: Livan Napier M.D. Measurements Intervals [place] Rate: 119 P: 76 FL: 148 QRS: 245 QRSD: 86 T: 75 QT: 298 QTc: 420 Interpretive Statements SINUS TACHYCARDIA POSSIBLE RIGHT VENTRICULAR HYPERTROPHY [SOME/ALL OF: PROMINENT R IN V1, LATE TRANSITION, RAD, TORI, SSS] ANTEROSEPTAL MYOCARDIAL INFARCTION , OF INDETERMINATE AGE [40+ ms Q WAVE IN V1-V4] Compared to ECG 12/06/2022 18:12:45 No significant changes Electronically Signed On 12-09-2022 7:49:33 CDT by Livan Napier M.D. [id number]
--- NOTE | 2022-12-08 16:24 | XRR_ITS ---
PROCEDURE INFORMATION: Exam: XR Chest Exam date and time: 12/08/2022 4:38 PM Age: 67 years old Clinical indication: Shortness of breath; Additional info: SOB TECHNIQUE: Imaging protocol: Radiologic exam of the chest. Views: 1 view. COMPARISON: CR (CHEST, ) 12/06/2022 6:28 PM FINDINGS: Lungs: Emphysematous changes. Pleural spaces: Small left pleural effusion. Heart/Mediastinum: Cardiomegaly. Bones/joints: Unremarkable. XR/XR chest 1V portable [id number] IMPRESSION: 1. Small left pleural effusion, similar to prior exam. 2. Cardiomegaly. 3. Emphysematous changes.
--- NOTE | 2022-12-08 16:52 | W.ED.SOB ---
HPI - SOB/Dyspnea General: Chief Complaint: Shortness of Breath/Dyspnea Stated Complaint: SOB, Weezing Time Seen by Provider: 12/08/22 16:08 History of Present Illness: HPI Narrative: 67-year-old male with complex medical history including COPD, neck cancer, hyperlipidemia and iron deficiency anemia presented emergency room with shortness of breath and cough. Patient describes his cough as productive cough with yellow sputum. Patient was not evaluated. Complain 2 days ago but report increased symptoms since his last presentation to the ER. Denies any fever, chills, coughing up blood or vomiting blood. Patient with chronic neck mass and denies any change in his neck mass in size from the past few days. No known sick contacts or foreign travel. Associated symptoms: Deny chest congestion, chest pain, hemoptysis, lightheadedness or palpitations Review of Systems General: Reports: 10 or more systems reviewed and unremarkable except in HPI and below Card: Denies: chest pain, palpitations, irregular heart rhythm, swelling of feet/ankles or lightheadedness Resp: Reports: dyspnea, productive cough and wheezing; Denies: non-productive cough, pain on inspiration, hemoptysis or chest congestion Neuro: Denies: headache(s), numbness in extremities, weakness in extremities, sensory changes, lack of coordination, difficulty walking, frequent falls, behavioral changes, Slurred speech present or difficulty communicating thoughts FORMERLY [facility], [facility] ED PFSH: Medical History COPD (chronic obstructive pulmonary disease) Coronary artery disease Deep vein thrombosis (DVT) of axillary vein of right upper extremity Diabetes mellitus Elevated PSA Variable levels when checked over time, high and low, has seen Dr Lincoln, not evaluating further at this time as noted per Urology clinic notes Gross hematuria Hyperlipidemia Hypertension GIDEON (obstructive sleep apnea) Presence of other vascular implants and grafts PowerPort left subclavian Dr. Mead 03/07/2022 Squamous cell carcinoma of right tonsil Treated with cisplatin (last dose 05/09/22) and radiation (last treatment 05/24/22); Follows with Dr Justice. Stroke Tachycardia-bradycardia Surgical History History of heart artery stent 1996 History of percutaneous endoscopic gastrostomy With subsequent removal due to leakage and perforation History of surgery on arm History of surgery on lower extremity Family History Mother Cancer lung Father Stroke Sister Cancer lung Other Bleeding disorder Clotting disorder Diabetes Hyperlipidemia Social History Smoking and tobacco status: current every day smoker cigarettes Packs smoked per day: 1.5 Alcohol intake: never Substance/Drug Use: never Lives independently: Yes Household members: family Marital status: Current occupational status: retired Physical Exam Narrative: EXAM NARRATIVE: Patient is awake and alert x3 no acute distress. HENMT: COMMON NORMALS: atraumatic HEAD & SCALP: atraumatic Neck/C-Spine: GENERAL: Yes other (Large palpable mass on the left side of his neck. No redness, drainage or ) Chest: COMMONS NORMALS: normal inspection of the chest, normal palpation of entire chest wall and normal inspection of the breasts Breast/axilla inspection: Yes normal inspection of the breasts Resp: AUSCULTATION: wheezes and diminished lung sounds Cardio: PALPATION: normal PMI RATE: tachycardic GI: COMMON NORMALS: Normal to inspection, nondistended, normoactive bowel sounds present Extremity: NARRATIVE EXTREMITY EXAM: No palpable cords, no swelling or calf tenderness Course ED course: Patient presents emergency room with shortness of breath monitored here for few hours. I personally reviewed his previous labs and x-ray. Reevaluation(s): Reevaluation #1: At 4:57 PM patient was resting comfortably in the emergency room no acute distress. Vital Signs: Vital signs: Vital Signs Temperature 97.6 F 12/08/22 16:02 Pulse Rate 111 H 12/08/22 17:12 Respiratory Rate 16 12/08/22 17:09 Blood Pressure 84/54 12/08/22 16:02 Pulse Oximetry 94 12/08/22 17:09 Oxygen Delivery Me thod Nasal Cannula 12/08/22 17:09 Oxygen Flow Rate 2 12/08/22 17:09 MDM - SOB/Dyspnea Medical Decision Making I reviewed the EKG, chest x-ray, labs and discussed patient with the . Plan was to admit but patient declined admission Differential Diagnosis Likely acute exacerbation of chronic obstructive airways disease, congestive heart failure, community acquired pneumonia, asthma with exacerbation and pulmonary embolism Medical Records My plan was to admit patient for further evaluation and treatment given his presenting symptoms but patient declined admission at this time. She was given IV steroids and DuoNebs. He reviews that he feels better after the medication and treatment. Patient declined admission and would like to be discharged home. He will be discharged home with steroid and azithromycin. Lab Data 12/08/22 16:38 12/08/22 16:38 Labs/Radiology: Radiology Impressions Chest X-Ray 12/08/22 16:24 IMPRESSION: 1. Small left pleural effusion, similar to prior exam. 2. Cardiomegaly. 3. Emphysematous changes. Laboratory Results WBC 13.8 10^3/uL (4.0-10.0) H 12/08/22 16:38 RBC 4.18 10^6/uL (4.1-5.3) 12/08/22 16:38 Hgb 12.2 g/dL (11.7-16.6) 12/08/22 16:38 Hct 38.5 % (42.0-52.0) L 12/08/22 16:38 MCV 92.1 fl (80-94) 12/08/22 16:38 MCH 29.2 pg (28.0-34.0) 12/08/22 16:38 MCHC 31.7 g/dL (30.0-36.0) 12/08/22 16:38 RDW 13.5 % (12.1-15.1) 12/08/22 16:38 Plt Count 401 10^3/cmm (130-400) H 12/08/22 16:38 MPV 9.0 fL (7.4-10.4) 12/08/22 16:38 Neut % (Auto) 80.7 % 12/08/22 16:38 Lymph % (Auto) 11.1 % 12/08/22 16:38 [place] % (Auto) 6.5 % 12/08/22 16:38 Eos % (Auto) 0.5 % 12/08/22 16:38 Baso % (Auto) 0.4 % 12/08/22 16:38 Neut # (Auto) 11.12 10^3/uL (1.8-7.7) H 12/08/22 16:38 Lymph # (Auto) 1.5 10^3/uL (0.8-4.8) 12/08/22 16:38 [place] # (Auto) 0.9 10^3/uL (0.2-0.9) 12/08/22 16:38 Eos # (Auto) 0.1 10^3/uL (0.0-0.8) 12/08/22 16:38 Baso # (Auto) 0.1 10^3/uL (0.0-0.1) 12/08/22 16:38 Nucleated RBC % (auto) 0 % 12/08/22 16:38 Nucleated RBCs # 0.0 /100WBC 12/08/22 16:38 Sodium 132 mmol/L (136-145) L 12/08/22 16:38 Potassium 4.1 mmol/L (3.5-5.1) 12/08/22 16:38 Chloride 90 mmol/L (98-107) L 12/08/22 16:38 Carbon Dioxide 28 mmol/L (22-29) 12/08/22 16:38 Anion Gap 18.1 (5-19) 12/08/22 16:38 BUN 40 mg/dL (8-23) H 12/08/22 16:38 Creatinine 0.7 mg/dL (0.7-1.2) 12/08/22 16:38 GFR Calculation 112.8 mL/min (90-130) 12/08/22 16:38 Glucose 139 mg/dL (65-115) H 12/08/22 16:38 Calculated Osmolality 286 mOsm/kg (285-295) 12/08/22 16:38 Lactic Acid 2.8 mmol/L (0.5-2.2) H 12/08/22 16:38 Calcium 9.9 mg/dL (8.5-10.5) 12/08/22 16:38 Magnesium 2.2 mg/dL (1.7-2.3) 12/08/22 16:38 Total Bilirubin 0.2 mg/dL (0.15-1.2) 12/08/22 16:38 AST 42 U/L (0-40) H 12/08/22 16:38 ALT 60 U/L (0-41) H 12/08/22 16:38 Alkaline Phosphatase 169 U/L (40-130) H 12/08/22 16:38 NT-Pro-B Natriuret Pep 331 pg/mL (0-125) H 12/08/22 16:38 Total Protein 7.8 g/dL (6.6-8.7) 12/08/22 16:38 Albumin 3.6 g/dL (3.5-5.2) 12/08/22 16:38 Globulin 4.2 g/dL (1.3-4.6) 12/08/22 16:38 EKG Data EKG 1: Interpretation: Sinus tachycardia rate of [address] changes no ST elevation or T wave inversion. Discharge Plan Discharge Patient Disposition: Home Clinical Impression: COPD (chronic obstructive pulmonary disease), Mass in neck, Bronchitis, Tachycardia Condition: Stable Prescriptions: New Zithromax Z-Mathieu 250 mg tablet 250 mg PO DAILY 5 Days Qty: 6 0RF Medrol (Mathieu) 4 mg tablets,dose pack 4 mg PO DAILY Qty: 21 0RF No Action metformin 500 mg tablet 250 mg PO DAILY ferrous sulfate [FeroSul] 325 mg (65 mg iron) tablet 325 mg PO DAILY Lidocaine Viscous 2 % solution 5 ml mucous membrane Q6H PRN (Reason: Pain) Qty: 100 0RF promethazine 25 mg tablet 25 mg PO Q6H PRN (Reason: nausea and vomiting) 30 Days Qty: 90 0RF ondansetron HCl 4 mg tablet 4 mg PO Q6H PRN (Reason: nausea and vomiting) 30 Days Qty: 90 0RF digoxin 62.5 mcg (0.0625 mg) tablet 62.5 mcg PO DAILY Qty: 30 3RF albuterol sulfate 90 mcg/actuation HFA aerosol inhaler 2 inh INHALATION Q4H PRN (Reason: shortness of breath or wheezing) Qty: 18 0RF acetaminophen 500 mg Tablet 1,000 mg PO BID PRN (Reason: Pain) albuterol sulfate 2.5 mg /3 mL (0.083 %) Solution For Nebulization 2.5 mg INHALATION Q6H PRN (Reason: Shortness Of Breath) aspirin 81 mg Tablet,Delayed Release (Dr/Ec) 81 mg PO QAM cholecalciferol (vitamin D3) [Vitamin D3] 25 mcg (1,000 unit) Tablet 25 mcg PO QPM guaifenesin [Mucinex] 600 mg Tablet Extended Release 12hr 600 mg PO BID PRN (Reason: congestion) 30 Days Qty: 30 0RF cyanocobalamin (vitamin B-12) [Vitamin B-12] 1,000 mcg Tablet 1,000 mcg PO QAM rosuvastatin [Crestor] 20 mg Tablet 10 mg PO QAM Spiriva Respimat 2.5 mcg/actuation Mist 2 inh INHALATION QAM polyethylene glycol 3350 [Miralax] 17 gram Powder In Packet 17 g PO DAILY PRN (Reason: Constipation) Discharge Orders: Discharge ED (Routine); Ordered 12/08/22 Ordered By: Erica Almanza Referrals: Katrina Gaytan MD [Primary Care Provider] - Discharge Diet: Low Salt Discharge Activity: Resume usual activity Patient Instructions: Opioid Safety, Pain Management Coding Level of Care Code ED Dietitian Assistant for Bernice Day
[2022-12-08 16:56] LABS: Basophils # 0.1 10^3/uL (0.0-0.1); Basophils % 0.4 %; Eosinophils # 0.1 10^3/uL (0.0-0.8); Eosinophils % 0.5 %; Hematocrit 38.5 % (42.0-52.0); Hemoglobin 12.2 g/dL (11.7-16.6); Lymphocytes # 1.5 10^3/uL (0.8-4.8); Lymphocytes % 11.1 %; Mean Corpuscular HGB Conc 31.7 g/dL (30.0-36.0); Mean Corpuscular Hemoglobin 29.2 pg (28.0-34.0); Mean Corpuscular Volume 92.1 fl (80-94); Monocytes # 0.9 10^3/uL (0.2-0.9); Monocytes % 6.5 %; Neutrophils # 11.12 10^3/uL (1.8-7.7); Neutrophils % 80.7 %; Nucleated Red Blood Cells % 0 %; Platelet Count 401 10^3/cmm (130-400); Red Blood Count 4.18 10^6/uL (4.1-5.3); Red Cell Distribution Width 13.5 % (12.1-15.1); White Blood Count 13.8 10^3/uL (4.0-10.0)
[2022-12-08 17:09] VITALS: PULSE 109; RESP 16; O2SAT 94
[2022-12-08 17:09] LABS: Lactic Sepsis W/Reflex 2.8 mmol/L (0.5-2.2)
[2022-12-08] MEDS: ipratropium-albuterol 3 mL Neb INHALATION (17:11)
[2022-12-08 17:12] VITALS: PULSE 111
[2022-12-08 17:20] LABS: Alanine Aminotransferase 60 U/L (0-41); Albumin Level 3.6 g/dL (3.5-5.2); Alkaline Phosphatase 169 U/L (40-130); Anion Gap 18.1 (5-19); Aspartate Amino Transferase 42 U/L (0-40); Blood Urea Nitrogen 40 mg/dL (8-23); Calcium 9.9 mg/dL (8.5-10.5); Carbon Dioxide 28 mmol/L (22-29); Chloride 90 mmol/L (98-107); Globulin 4.2 g/dL (1.3-4.6); Glomerular Filtration Rate 112.8 mL/min (90-130); Glucose 139 mg/dL (65-115); Magnesium 2.2 mg/dL (1.7-2.3); NT Pro B Type Natriuretic Pept 331 pg/mL (0-125); Osmolality Calculated 286 mOsm/kg (285-295); Potassium 4.1 mmol/L (3.5-5.1); Sodium 132 mmol/L (136-145); Total Bilirubin 0.2 mg/dL (0.15-1.2); Total Protein 7.8 g/dL (6.6-8.7)
[2022-12-08] MEDS: dexamethasone 10 mg/mL INJ IVP (17:37)
[2022-12-08 18:34] LABS: Reflex Lactate Order REFLEX LACTIC ORDERD
== END 2022-12-08 18:36 | disposition home or self-care (01) ==
PROVIDERS: Emergency Provider Family Medicine; PCP Family Medicine
DX: J44.9 Chronic obstructive pulmonary disease, unspecified (principal); R22.1 Localized swelling, mass and lump, neck; R00.0 Tachycardia, unspecified; Z79.84 Long term (current) use of oral hypoglycemic drugs; Z79.82 Long term (current) use of aspirin; F17.210 Nicotine dependence, cigarettes, uncomplicated; I25.10 Atherosclerotic heart disease of native coronary artery without angina pectoris; E11.9 Type 2 diabetes mellitus without complications; E78.5 Hyperlipidemia, unspecified; Z86.73 Personal history of transient ischemic attack (TIA), and cerebral infarction without residual deficits
CPT/HCPCS: 71045; 80053; 83605; 83735; 83880; 85025; 87040; 87070; 87077; 87186; 87205; 93005; 94640; 96374; 99285; J1100

== ENCOUNTER → 2022-12-14 13:40 | Outpatient (BNVA) | payer MEDICARE, MEDICAID, SELFPAY | PROVIDERS: PCP Family Medicine; Visit Provider Internal Medicine Cardiovascular Disease | DX: R00.0 Tachycardia, unspecified (principal); I10 Essential (primary) hypertension; F17.210 Nicotine dependence, cigarettes, uncomplicated | CPT/HCPCS: 99214 ==

== ENCOUNTER → 2022-12-20 14:06 | Outpatient (BNVA) | payer MEDICARE, MEDICAID, SELFPAY | PROVIDERS: PCP Family Medicine; Visit Provider Internal Medicine Pulmonary Disease | DX: J43.9 Emphysema, unspecified (principal); R91.8 Other nonspecific abnormal finding of lung field; J21.9 Acute bronchiolitis, unspecified; F17.210 Nicotine dependence, cigarettes, uncomplicated; C09.9 Malignant neoplasm of tonsil, unspecified; Z92.3 Personal history of irradiation | CPT/HCPCS: 99204 ==

== ENCOUNTER 2022-12-22 19:42 | Inpatient (IN) | payer OTHER, SELFPAY ==
[2022-12-22 19:46] VITALS: BP 146/90; PULSE 131; RESP 30; TEMP 36.9; O2SAT 94
--- NOTE | 2022-12-22 19:50 | XRR_ITS ---
PROCEDURE INFORMATION: Exam: XR Chest Exam date and time: 12/22/2022 7:58 PM Age: 67 years old Clinical indication: Dyspnea and shortness of breath; Patient HX: Severe SOB with dyspnea. History of throat cancer. TECHNIQUE: Imaging protocol: Radiologic exam of the chest. Views: 1 view. COMPARISON: CR (CHEST, ) 12/08/2022 4:38 PM FINDINGS: Lungs: Continued mild left basilar atelectasis and/or infiltrate and/or scarring. Stable COPD . Pleural spaces: Unremarkable. No pleural effusion. No pneumothorax. Heart/Mediastinum: Unremarkable. No cardiomegaly. Bones/joints: Unremarkable. Other findings: Patient rotation to the left. XR/XR chest 1V portable [id number] IMPRESSION: 1. Continued mild left basilar atelectasis and/or infiltrate and/or scarring. 2. Stable COPD .
[2022-12-22 20:01] LABS: ABG PCO2 50.9 mmHg (35-45); ABG PH Result 7.45 (7.35-7.45); Arterial Blood Gas Hematocrit 33.5 % (42-52); Base Excess ABG 10.1 mmol/L (-2.0-2.0); Blood Gas Allen Test Pos; Blood Gas Sample Site Radial, right; Blood Gas Sample Type Arterial; Carboxyhemoglobin 11.3 %THgb (0.4-20.1); HCO3 ABG 35.5 mmol/L (22-26); HGB O2 Sat 85.5 % (95-100); Methemoglobin 0.1 % (0.4-1.5); Oxygen Device NC; PO2 ABG 69.7 mmHg (80.0-100.0); Total Hemoglobin 10.9 g/dL (14-18)
[2022-12-22] MEDS: dexamethasone 10 mg/mL INJ IVP (20:02)
[2022-12-22 20:07] LABS: Basophils % 0.3 %; Eosinophils # 0.1 10^3/uL (0.0-0.8); Eosinophils % 0.5 %; Hematocrit 35.1 % (42.0-52.0); Hemoglobin 11.2 g/dL (11.7-16.6); Lymphocytes # 0.7 10^3/uL (0.8-4.8); Lymphocytes % 4.8 %; Mean Corpuscular HGB Conc 31.9 g/dL (30.0-36.0); Mean Corpuscular Volume 90.9 fl (80-94); Monocytes # 0.8 10^3/uL (0.2-0.9); Monocytes % 5.3 %; Neutrophils # 13.21 10^3/uL (1.8-7.7); Neutrophils % 88.4 %; Nucleated Red Blood Cells % 0 %; Platelet Count 360 10^3/cmm (130-400); Red Blood Count 3.86 10^6/uL (4.1-5.3); Red Cell Distribution Width 14.4 % (12.1-15.1); White Blood Count 14.9 10^3/uL (4.0-10.0)
[2022-12-22 20:15] VITALS: BP 108/74; PULSE 127; RESP 16; O2SAT 95
[2022-12-22 20:29] LABS: Digoxin 0.5 ng/mL (0.6-1.2)
[2022-12-22 20:38] LABS: Alanine Aminotransferase 41 U/L (0-41); Albumin Level 3.1 g/dL (3.5-5.2); Alkaline Phosphatase 126 U/L (40-130); Anion Gap 16.4 (5-19); Aspartate Amino Transferase 34 U/L (0-40); Blood Urea Nitrogen 45 mg/dL (8-23); Calcium 9.8 mg/dL (8.5-10.5); Carbon Dioxide 30 mmol/L (22-29); Chloride 93 mmol/L (98-107); Globulin 4.2 g/dL (1.3-4.6); Glomerular Filtration Rate 166.4 mL/min (90-130); Glucose 160 mg/dL (65-115); Magnesium 2.2 mg/dL (1.7-2.3); NT Pro B Type Natriuretic Pept 518 pg/mL (0-125); Osmolality Calculated 295 mOsm/kg (285-295); Potassium 4.4 mmol/L (3.5-5.1); Sodium 135 mmol/L (136-145); Total Bilirubin 0.2 mg/dL (0.15-1.2); Total Protein 7.3 g/dL (6.6-8.7)
--- NOTE | 2022-12-22 21:22 | ECG_ITS ---
[facility] Test Date: 2022-12-22 Pat Name: Chacorta Siegel Department: Room: Gender: Male Chief Operator: : 1955 Requested By: Bryson Capps Order Number: [id number] Jannie MD: Livan Napier M.D. Measurements Intervals [place] Rate: 98 P: 71 MO: 153 QRS: 198 QRSD: 86 T: 68 QT: 314 QTc: 403 Interpretive Statements SINUS RHYTHM WITH MARKED SINUS ARRHYTHMIA POSSIBLE RIGHT VENTRICULAR HYPERTROPHY [SOME/ALL OF: PROMINENT R IN V1, LATE TRANSITION, RAD, TORI, SSS] INFERIOR MYOCARDIAL INFARCTION , OF INDETERMINATE AGE [40+ ms Q WAVE AND/OR ST/T ABNORMALITY IN II/aVF] ANTEROSEPTAL MYOCARDIAL INFARCTION , OF INDETERMINATE AGE [40+ ms Q WAVE IN V1-V4] Compared to ECG 12/08/2022 16:19:32 Sinus tachycardia no longer present Myocardial infarct finding still present Electronically Signed On 12-23-2022 5:59:08 CDT by Livan Napier M.D. [id number]
[2022-12-22 21:31] VITALS: BP 106/81; PULSE 125; RESP 28; O2SAT 94
--- NOTE | 2022-12-22 21:38 | W.ED.SOB ---
HPI - SOB/Dyspnea General: Chief Complaint: Shortness of Breath/Dyspnea Stated Complaint: SOB/COPD Time Seen by Provider: 12/22/22 19:44 History of Present Illness: HPI Narrative: Patient presents to the ER with complaints of shortness of breath. Patient has increased work of breathing and a history of COPD patient has a productive cough. Patient was diagnosed with throat cancer in June. Patient has been tachycardic but denies any fever chills colds nausea vomiting diarrhea. 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 Purvis 2 days ago. Review of Systems General: Reports: 10 or more systems reviewed and unremarkable except in HPI and below PFSH ED PFSH: Medical History COPD (chronic obstructive pulmonary disease) Coronary artery disease Deep vein thrombosis (DVT) of axillary vein of right upper extremity Diabetes mellitus Elevated PSA Variable levels when checked over time, high and low, has seen Dr Lincoln, not evaluating further at this time as noted per Urology clinic notes Gross hematuria Hyperlipidemia Hypertension GIDEON (obstructive sleep apnea) Presence of other vascular implants and grafts PowerPort left subclavian Dr. Mead 03/07/2022 Squamous cell carcinoma of right tonsil Treated with cisplatin (last dose 05/09/22) and radiation (last treatment 05/24/22); Follows with Dr Justice. Stroke Tachycardia-bradycardia Surgical History History of heart artery stent 1996 History of percutaneous endoscopic gastrostomy With subsequent removal due to leakage and perforation History of surgery on arm History of surgery on lower extremity Family History Mother Cancer lung Father Stroke Sister Cancer lung Other Bleeding disorder Clotting disorder Diabetes Hyperlipidemia Social History Smoking and tobacco status: current every day smoker cigarettes Packs smoked per day: 1.5 Alcohol intake: never Substance/Drug Use: never Lives independently: Yes Household members: family Marital status: Current occupational status: retired Physical Exam Const: COMMON NORMALS: average body habitus, patient oriented x3, no limitations, alert and well nourished HENMT: COMMON NORMALS: normocephalic, atraumatic, hearing grossly normal bilaterally, external ears normal, Normal external nose present and moist oral mucous membranes HEAD & SCALP: normocephalic and atraumatic NOSE: Normal external nose present EXTERNAL EAR: Yes external ears normal Eye: COMMON NORMALS: Equal, round and reactive pupils present, EOMs intact bilaterally, conjunctivae normal and no scleral icterus CONJUNCTIVA: Yes conjunctivae normal PUPIL: Yes Equal, round and reactive pupils present Neck/C-Spine: COMMON NORMALS: full ROM, no lymphadenopathy, supple, no meningeal signs and no JVD Chest: COMMONS NORMALS: normal inspection of the chest and normal palpation of entire chest wall Resp: EFFORT & INSPECTION: Yes symmetric chest movement, Yes tachypneic and Yes respiratory distress AUSCULTATION: rales, rhonchi and diminished lung sounds Cardio: COMMON NORMALS: no JVD, S1 normal heart sound present, No gallops present (Cardio), No clicks present (Cardio), No murmurs present (Cardio) and No rub (Cardio); negative for regular rate (Tachycardic) RATE: abnormal rate (Tachycardic) HEART SOUNDS: S1 normal heart sound present GI: COMMON NORMALS: Normal to inspection, nondistended, normoactive bowel sounds present, Soft to palpation, non-tender, No hepatosplenomegaly present and no masses PALPATION: Yes Soft to palpation and Yes No hepatosplenomegaly present : COMMON NORMALS: Yes no CVA tenderness BLADDER/KIDNEY EXAM: Yes no CVA tenderness Back/Pelvis: COMMON NORMALS: no CVA tenderness Neuro: COMMON NORMALS: patient oriented x3 SENSORIUM/ORIENTATION: Yes alert MENINGEAL SIGNS: Yes no meningeal signs Course Vital Signs: Vital signs: Vital Signs Temperature 98.4 F 12/22/22 19:46 Pulse Rate 70 12/22/22 22:32 Respiratory Rate 16 12/22/22 22:32 Blood Pressure 112/64 12/22/22 22:32 Pulse Oximetry 92 12/22/22 22:32 Oxygen Delivery Me thod Non-Rebreather 12/22/22 22:32 Oxygen Flow Rate 8 12/22/22 22:32 MDM - SOB/Dyspnea Medical Decision Making Patient presents to the ER with complaints of shortness of breath. Patient has increased working breathing and a history of COPD. Patient says has been going downhill for the last couple days. Patient progressively went downhill to the point of requiring a nonrebreather. Patient was given multiple nebulizers had a chest x-ray and CT angiogram. CT showed multiple thick mucous plugging's in the left lower lobe and left basilar pneumonia. Patient's had elevated white count of about 14.9. Patient With being tachycardic with a rate of about 120 bpm. UA was positive for leukocyte Estrace. It was discussed with Dr. Simeon agreed to accept the patient for further evaluation and treatment at [facility]. Differential Diagnosis Likely acute exacerbation of chronic obstructive airways disease; Unlikely congestive heart failure, community acquired pneumonia, asthma with exacerbation or pulmonary embolism Medical Records I reviewed the patient's medical records. Lab Data I reviewed the patient's lab results. 12/22/22 19:35 12/22/22 19:35 Labs/Radiology: Radiology Impressions Chest X-Ray 12/22/22 19:50 IMPRESSION: 1. Continued mild left basilar atelectasis and/or infiltrate and/or scarring. 2. Stable COPD . Chest CTA 12/22/22 21:40 IMPRESSION: 1. Severe calcified coronary artery disease. 2. Mild centrilobular emphysema. 3. Mucous plugs and peribronchial thickening in the right lower lobe with peribronchial thickening in the left lower lobe consistent with bronchitis. 4. Mild inferior segment lingula and left basilar pneumonia. 5. No pulmonary embolus or aortic dissection. COMMENTS: In the absence of a history or active diagnosis of lung cancer, it is recommended that this patient with emphysema be evaluated for enrollment in a low dose CT lung cancer screening program. Laboratory Results WBC 14.9 10^3/uL (4.0-10.0) H 12/22/22 19:35 RBC 3.86 10^6/uL (4.1-5.3) L 12/22/22 19:35 Hgb 11.2 g/dL (11.7-16.6) L 12/22/22 19:35 Hct 35.1 % (42.0-52.0) L 12/22/22 19:35 MCV 90.9 fl (80-94) 12/22/22 19:35 MCH 29.0 pg (28.0-34.0) 12/22/22 19:35 MCHC 31.9 g/dL (30.0-36.0) 12/22/22 19:35 RDW 14.4 % (12.1-15.1) 12/22/22 19:35 Plt Count 360 10^3/cmm (130-400) 12/22/22 19:35 MPV 10.0 fL (7.4-10.4) 12/22/22 19:35 Neut % (Auto) 88.4 % 12/22/22 19:35 Lymph % (Auto) 4.8 % 12/22/22 19:35 [place] % (Auto) 5.3 % 12/22/22 19:35 Eos % (Auto) 0.5 % 12/22/22 19:35 Baso % (Auto) 0.3 % 12/22/22 19:35 Neut # (Auto) 13.21 10^3/uL (1.8-7.7) H 12/22/22 19:35 Lymph # (Auto) 0.7 10^3/uL (0.8-4.8) L 12/22/22 19:35 [place] # (Auto) 0.8 10^3/uL (0.2-0.9) 12/22/22 19:35 Eos # (Auto) 0.1 10^3/uL (0.0-0.8) 12/22/22 19:35 Baso # (Auto) 0.0 10^3/uL (0.0-0.1) 12/22/22 19:35 Nucleated RBC % (auto) 0 % 12/22/22 19:35 Nucleated RBCs # 0.0 /100WBC 12/22/22 19:35 Specimen Type Arterial 12/22/22 19:53 Sample Site Radial, right 12/22/22 19:53 ABG pH 7.45 (7.35-7.45) 12/22/22 19:53 ABG pCO2 50.9 mmHg (35-45) H 12/22/22 19:53 ABG pO2 69.7 mmHg (80.0-100.0) L 12/22/22 19:53 ABG HCO3 35.5 mmol/L (22-26) H 12/22/22 19:53 ABG Base Excess 10.1 mmol/L (-2.0-2.0) H 12/22/22 19:53 Roge Test Pos 12/22/22 19:53 Hematocrit 33.5 % (42-52) L 12/22/22 19:53 Hgb O2 Saturation 85.5 % (95-100) L 12/22/22 19:53 Carboxyhemoglobin 11.3 %THgb (0.4-20.1) 12/22/22 19:53 Methemoglobin 0.1 % (0.4-1.5) L 12/22/22 19:53 Total Hemoglobin 10.9 g/dL (14-18) L 12/22/22 19:53 O2 Delivery Device Nc 12/22/22 19:53 O2 Liters/Min 2.0 % 12/22/22 19:53 Vehicle Modification Technician ID [email or web address] 12/22/22 19:53 Sodium 135 mmol/L (136-145) L 12/22/22 19:35 Potassium 4.4 mmol/L (3.5-5.1) 12/22/22 19:35 Chloride 93 mmol/L (98-107) L 12/22/22 19:35 Carbon Dioxide 30 mmol/L (22-29) H 12/22/22 19:35 Anion Gap 16.4 (5-19) 12/22/22 19:35 BUN 45 mg/dL (8-23) H 12/22/22 19:35 Creatinine 0.5 mg/dL (0.7-1.2) L 12/22/22 19:35 GFR Calculation 166.4 mL/min (90-130) H 12/22/22 19:35 Glucose 160 mg/dL (65-115) H 12/22/22 19:35 Calculated Osmolality 295 mOsm/kg (285-295) 12/22/22 19:35 Lactic Acid 0.9 mmol/L (0.5-2.2) 12/22/22 22:08 Calcium 9.8 mg/dL (8.5-10.5) 12/22/22 19:35 Magnesium 2.2 mg/dL (1.7-2.3) 12/22/22 19:35 Total Bilirubin 0.2 mg/dL (0.15-1.2) 12/22/22 19:35 AST 34 U/L (0-40) 12/22/22 19:35 ALT 41 U/L (0-41) 12/22/22 19:35 Alkaline Phosphatase 126 U/L (40-130) 12/22/22 19:35 Troponin T Gen 5 ng/L 47 ng/L (0-15) H 12/22/22 19:35 NT-Pro-B Natriuret Pep 518 pg/mL (0-125) H 12/22/22 19:35 Total Protein 7.3 g/dL (6.6-8.7) 12/22/22 19:35 Albumin 3.1 g/dL (3.5-5.2) L 12/22/22 19:35 Globulin 4.2 g/dL (1.3-4.6) 12/22/22 19:35 Procalcitonin 0.23 ng/mL (0-0.5) 12/22/22 19:35 Urine Color Yellow (Yellow) 12/22/22 22:01 Urine Appearance Turbid (CLEAR) A 12/22/22 22:01 Urine pH 5 (5-7) 12/22/22 22:01 Ur Specific [place] 1.020 (1.005-1.030) 12/22/22 22:01 Urine Protein 1+ (Negative) H 12/22/22 22:01 Urine Glucose (UA) Norm (Normal) 12/22/22 22:01 Urine Ketones 1+ (Negative) H 12/22/22 22:01 Urine Blood 3+ (Negative) H 12/22/22 22:01 Urine Nitrate Negative (Negative) 12/22/22 22:01 Urine Bilirubin Neg (Negative) 12/22/22 22:01 Urine Urobilinogen Norm mg/dL (Negative) 12/22/22 22:01 Ur Leukocyte Esterase 2+ (Negative) H 12/22/22 22:01 Urine RBC >100 /hpf (0-2) H 12/22/22 22:01 Urine WBC >100 /hpf (0-5) H 12/22/22 22:01 Ur Squamous Epith Cells 0-4 /hpf (0-5) H 12/22/22 22:01 Ur Renal Epithelial Cell 3 /hpf 12/22/22 22:01 Amorphous Sediment Not Reportable 12/22/22 22:01 Urine Bacteria 2+ /hpf (NONE) H 12/22/22 22:01 Digoxin 0.5 ng/mL (0.6-1.2) L 12/22/22 19:35 EKG Data EKG 1: I personally reviewed and interpreted this EKG as follows: EKG Interpretation Date: 12/22/22 EKG interpretation time: 21:22 Prior EKG tracings: not available for review Interpretation: EKG showed ventricular rate 98 bpm, [place] interval 153, QRS duration 86, QTc 378, sinus rhythm with marked sinus arrhythmia, possible right ventricular hypertrophy, Q waves in V1 through V4 and 2 and aVF. Discharge Plan Discharge Patient Disposition: Admitted As Inpatient Clinical Impression: Community acquired pneumonia, Acute exacerbation of chronic obstructive airways disease, Acute and chronic respiratory failure with hypoxia Condition: Stable Prescriptions: No Action Romantri Aerosphere 160-9-4.8 mcg/actuation HFA aerosol inhaler 2 inh inhalation BID digoxin 62.5 mcg (0.0625 mg) tablet 62.5 mcg PO DAILY Qty: 90 3RF (DME) Afflovest See Rx Instructions .Route .MEDSUPPLY Qty: 1 0RF Rx Instructions: As directed guaifenesin [Mucinex Fast-Max Chest-Congest] 100 mg/5 mL liquid 200 mg PO Q4H PRN (Reason: cough) Qty: 473 6RF Lidocaine Viscous 2 % solution 5 ml mucous membrane Q6H PRN (Reason: Pain) Qty: 100 0RF promethazine 25 mg tablet 25 mg PO Q6H PRN (Reason: nausea and vomiting) 30 Days Qty: 90 0RF ondansetron HCl 4 mg tablet 4 mg PO Q6H PRN (Reason: nausea and vomiting) 30 Days Qty: 90 0RF albuterol sulfate 90 mcg/actuation HFA aerosol inhaler 2 inh INHALATION Q4H PRN (Reason: shortness of breath or wheezing) Qty: 18 0RF acetaminophen 500 mg Tablet 1,000 mg PO BID PRN (Reason: Pain) albuterol sulfate 2.5 mg /3 mL (0.083 %) Solution For Nebulization 2.5 mg INHALATION Q6H PRN (Reason: Shortness Of Breath) aspirin 81 mg Tablet,Delayed Release (Dr/Ec) 81 mg PO QAM cholecalciferol (vitamin D3) [Vitamin D3] 25 mcg (1,000 unit) Tablet 25 mcg PO QPM cyanocobalamin (vitamin B-12) [Vitamin B-12] 1,000 mcg Tablet 1,000 mcg PO QAM rosuvastatin [Crestor] 20 mg Tablet 10 mg PO QAM polyethylene glycol 3350 [Miralax] 17 gram Powder In Packet 17 g PO DAILY PRN (Reason: Constipation) Medrol (Mathieu) 4 mg tablets,dose pack 4 mg PO DAILY Qty: 21 0RF Referrals: Katrina aGytan MD [Primary Care Provider] - Coding Level of Care Code ED Pcb Design Engineer for Chg Shay
[2022-12-22] MEDS: ipratropium-albuterol 3 mL Neb INHALATION (21:40)
--- NOTE | 2022-12-22 21:40 | CTR_ITS ---
PROCEDURE INFORMATION: Exam: CTA Chest With Contrast Exam date and time: 12/22/2022 10:10 PM Age: 67 years old Clinical indication: Dyspnea and shortness of breath; Patient HX: SOB with dyspnea, hypoxia, and tachycardia. History of throat cacner. ; Additional info: Dyspnea, hypoxia, tachycardia TECHNIQUE: Imaging protocol: Computed tomographic angiography of the chest with contrast. Exam focused on the arteries. 3D rendering (Not supervised by radiologist): MIP and/or 3D reconstructed images were created by the technologist. Radiation optimization: All CT scans at this facility use at least one of these dose optimization techniques: automated exposure control; mA and/or kV adjustment per patient size (includes targeted exams where dose is matched to clinical indication); or iterative reconstruction. Contrast material: OMNI 350; Contrast volume: 68 ml; Contrast route: INTRAVENOUS (IV); REPORTING DATA: Count of CT and Cardiac NM exams in prior 12 months: This patient has received 16 known [address]s and 0 known cardiac nuclear medicine studies in the 12 months prior to the current study. COMPARISON: CT angio chest PE protcl [id number] 08/03/2022 5:53 AM RADIATION DOSE METRICS: Total DLP (mGy-cm): 266.41 FINDINGS: Pulmonary arteries: Normal. No pulmonary emboli. Aorta: Calcification of the thoracic aorta and/or great vessels consistent with atherosclerotic vessel disease. Lungs: Mild centrilobular emphysema. Mucous plugs and peribronchial thickening in the right lower lobe with peribronchial thickening in the left lower lobe consistent with bronchitis. Mild inferior segment lingula and left basilar pneumonia. Pleural spaces: Unremarkable. No pneumothorax. No pleural effusion. Heart: Unremarkable. No cardiomegaly. No pericardial effusion. Coronary arteries: Severe calcified coronary artery disease. Lymph nodes: Unremarkable. No enlarged lymph nodes. Spleen: Calcified splenic granulomas. Bones/joints: Severe thoracic spondylosis. Soft tissues: Bilateral gynecomastia. CT/CT angio chest PE protcl [id number] IMPRESSION: 1. Severe calcified coronary artery disease. 2. Mild centrilobular emphysema. 3. Mucous plugs and peribronchial thickening in the right lower lobe with peribronchial thickening in the left lower lobe consistent with bronchitis. 4. Mild inferior segment lingula and left basilar pneumonia. 5. No pulmonary embolus or aortic dissection. COMMENTS: In the absence of a history or active diagnosis of lung cancer, it is recommended that this patient with emphysema be evaluated for enrollment in a low dose CT lung cancer screening program.
[2022-12-22 21:43] VITALS: PULSE 121; RESP 28; O2SAT 98
[2022-12-22 22:16] LABS: Troponin T (5th) Once 47 ng/L (0-15)
[2022-12-22 22:26] LABS: Add Urine Microscopic? YES; Bilirubin Urine Neg (Negative); Blood Urine 3+ (Negative); Glucose Urine UA Norm (Normal); Ketones Urine 1+ (Negative); Leukocyte Esterase Urine 2+ (Negative); Nitrate Urine Negative (Negative); Protein Urine 1+ (Negative); Urine Appearance Turbid (CLEAR); Urine Color Yellow (Yellow); Urobilinogen Urine Norm (Negative); pH Urine 5 (5-7)
[2022-12-22] MEDS: iohexol 350 mg/mL 500 mL Btl (per mL) IV (22:26)
[2022-12-22 22:28] LABS: WBC Urine >100 /hpf (0-5)
[2022-12-22 22:29] LABS: RBC Urine >100 /hpf (0-2); Renal Epithelial Cells Urine 3 /hpf
[2022-12-22 22:30] LABS: Add Urine Culture? Yes; Bacteria Urine 2+ /hpf; Squamous Epithelial Cell Urine 0-4 /hpf (0-5)
[2022-12-22 22:31] LABS: Lactic Sepsis W/Reflex 0.9 mmol/L (0.5-2.2)
[2022-12-22 22:32] VITALS: BP 112/64; PULSE 70; RESP 16; O2SAT 92
[2022-12-22 22:37] LABS: Procalcitonin 0.23 ng/mL (0-0.5)
[2022-12-22] MEDS: sodium chloride 0.9% 1,000 ML 999 ML IV (22:47)
[2022-12-22] MEDS: piperacillin-tazobactam 3.375 GM in sodium chloride 0.9% (plus) 50 ML IV (23:51)
[2022-12-22 23:58] VITALS: PULSE 118
[2022-12-23] VITALS (65 sets, daily range): BP systolic 95–147; BP diastolic 53–81; PULSE 57–121; RESP 12–31; TEMP 36.3–36.9; O2SAT 84–100; BMI 20.6
[2022-12-23] MEDS: sodium chloride 0.9% 1,000 ML 150 ML IV ×2 (01:05→05:51)
[2022-12-23] MEDS: dexamethasone 4 mg/mL INJ IVP ×3 (01:07→12:16)
[2022-12-23] MEDS: heparin 5,000 unit/mL INJ 1 mL 5000 UNIT SUBCUT ×3 (01:07→23:26)
[2022-12-23] MEDS: levofloxacin-dextrose 5 % 750 MG/150 ML PREMIX 100 MG IV (01:09)
--- NOTE | 2022-12-23 01:34 | P.HP_ITS ---
Providers/Chief Complaint Admitting Physician: Fabricio Dobson DO Primary Care Provider: Katrina Gaytan MD Chief Complaint: SOB/COPD History of Present Illness Chacorta Siegel is a 67 year old male with known severe COPD who saw Dr. Escalera for the first time within a week or so. He presents with worsening shortness of breath and hypoxia in the mid s. He was placed on 6 L oxygen. However he is a mouth breather and had to be placed on a nonrebreather. Treatment for his COPD included nebulizers and chest percussion performed by the . Unfortunately he continued to get worse and came in for care tonight. He denies associated symptoms no chest pain nausea vomiting. Denies fever or chills. No sick contacts. Of note: He is a current every day smoker. Been smoking for 50 years. He has a history of tonsillar cancer on the right he was finished with chemotherapy and radiation therapy in April 2020. Unfortunately he lost a significant amount of weight and it was not until August of this year that he was able to obtain a PEG tube. He has gained approximately 25 pounds since August with tube feedings. Has dysphagia due to the radiation therapy. Review of Systems Const: Denies: fever(s) or chills Eyes: Denies: change in vision ENMT: Denies: throat pain or nasal congestion Card: Denies: chest pain or palpitations Resp: Reports: dyspnea; Denies: productive cough GI: Denies: abdominal pain, nausea, vomiting or change in stool character : Denies: difficulty urinating or dysuria Musc: Denies: back pain or extremity pain Skin/Breast: Denies: rash or lesions Neuro: Denies: headache(s) or dizziness Psych: Denies: anxiety or depression Paco/Lymph: Denies: easy bruising or easy bleeding Medications/Allergies Home Medications Medication Instructions Recorded Confirmed Last Taken Type albuterol sulfate 90 mcg/actuation 2 inh inhalation Q4H PRN shortness 11/30/21 12/23/22 03/06/22 Rx aerosol inhaler of breath or wheezing #18 grams polyethylene glycol 3350 17 gram 17 g PO DAILY PRN Constipation 01/25/22 12/23/22 06/09/22 History oral powder packet (Miralax) rosuvastatin 20 mg tablet (Crestor) 10 mg PO QAM 08/09/1312/23/22 06/06/22 03:00 History acetaminophen 500 mg tablet 1,000 mg PO BID PRN Pain 03/06/22 12/23/22 06/09/22 17:00 History albuterol sulfate 2.5 mg/3 mL 2.5 mg inhalation Q6H PRN 03/20/22 12/23/22 06/09/22 18:00 History (0.083 %) solution for nebulization Shortness Of Breath aspirin 81 mg tablet,delayed 81 mg PO QAM 03/20/22 12/23/22 06/06/22 03:00 History release cholecalciferol (vitamin D3) 25 25 mcg PO QPM 03/20/22 12/23/22 06/06/22 History mcg (1,000 unit) tablet (Vitamin D3) ondansetron HCl 4 mg tablet 4 mg PO Q6H PRN nausea and 06/13/22 12/23/22 Unknown Rx vomiting 30 days #90 tabs budesonide 160 mcg-glycopyr 9 2 inh inhalation BID 12/14/22 12/23/22 Unknown History mcg-formot 4.8 mcg/actuation HFA inhaler (Breztri Aerosphere) digoxin 62.5 mcg (0.0625 mg) tablet 62.5 mcg PO DAILY #90 tabs 12/14/22 12/23/22 Unknown Rx Afflovest #1 ea 12/20/22 12/23/22 Unknown Rx guaifenesin 100 mg/5 mL oral 200 mg (10 mL) PO Q4H PRN cough 12/20/22 12/23/22 Unknown Rx liquid (Mucinex Fast-Max Chest #473 mL Congestion) food supplemt, lactose-reduced 8 ea feeding tube DIRECTED 12/23/22 12/23/22 Unknown History Allergies Allergy/AdvReac Type Severity Reaction Status Date / Time No Known Allergies Allergy Verified 12/20/22 14:17 PFSH Acute PFSH: Medical History COPD (chronic obstructive pulmonary disease) Coronary artery disease Deep vein thrombosis (DVT) of axillary vein of right upper extremity Diabetes mellitus Elevated PSA Variable levels when checked over time, high and low, has seen Dr Lincoln, not evaluating further at this time as noted per Urology clinic notes Gross hematuria Hyperlipidemia Hypertension GIDEON (obstructive sleep apnea) Presence of other vascular implants and grafts PowerPort left subclavian Dr. Mead 03/07/2022 Squamous cell carcinoma of right tonsil Treated with cisplatin (last dose 05/09/22) and radiation (last treatment 05/24/22); Follows with Dr Justice. Stroke Tachycardia-bradycardia Surgical History History of heart artery stent 1996 History of percutaneous endoscopic gastrostomy With subsequent removal due to leakage and perforation History of surgery on arm History of surgery on lower extremity Family History Mother Cancer lung Father Stroke Sister Cancer lung Other Bleeding disorder Clotting disorder Diabetes Hyperlipidemia Social History Smoking and tobacco status: current every day smoker cigarettes Packs smoked per day: 1.5 Alcohol intake: never Substance/Drug Use: never Lives independently: Yes Household members: family Marital status: Current occupational status: retired Vitals/I&O/Wt Last Vital Signs Temp 97.3 F L 12/23/22 00:00 Pulse 119 H 12/23/22 00:00 Resp 22 H 12/23/22 00:00 BP 147/79 12/23/22 00:00 Pulse Ox 95 12/23/22 00:00 O2 Del Method Aerosol Mask 12/23/22 00:00 O2 Flow Rate 8 12/22/22 22:32 12/22/22 12/22/22 12/23/22 14:59 22:59 06:59 Intake Total 1050.0 / 1050.0 Balance 1050.0 / 1050.0 Weight last 48 hrs Weight 54.431 kg Physical Exam Narrative: Patient is a thin elderly appearing male in acute respiratory distress. His respiratory rate is quite elevated and he is using accessory muscles to breathe Neuro: Alert and oriented to person place time and situation no focal deficits HEENT head is normocephalic atraumatic pupils equal round and reactive to light and accommodation extraocular muscles are intact there is no scleral icterus mucous membranes are dry, neck: is supple no JVD carotid bruits or lymphadenopathy Heart: Distant heart sounds able to clearly auscultate Lungs: Severely diminished breath sounds without short expiratory wheeze heard throughout Abdomen: Flat, PEG tube in place: Normal bowel sounds no hepatosplenomegaly nontender nondistended Extremities thin no edema Back: No spinal deformity noted no CVA tenderness Skin: No lesions or rashes noted Data 12/22/22 19:35 12/22/22 19:35 Micro: Microbiology 12/22/22 23:15 Blood Culture - Preliminary Blood SPECIMEN COLLECTED 12/22/22 23:07 Blood Culture - Preliminary Blood SPECIMEN COLLECTED CXR: My impression: Hyperinflated lungs Radiologist's impression: IMPRESSION: 1. ? Continued mild left basilar atelectasis and/or infiltrate and/or scarring. 2. ? Stable COPD . CTA Chest: Radiologist's impression: IMPRESSION: 1. ? Severe calcified coronary artery disease. 2. ? Mild centrilobular emphysema. 3. ? Mucous plugs and peribronchial thickening in the right lower lobe with peribronchial thickening in the left lower lobe consistent with bronchitis. 4. ? Mild inferior segment lingula and left basilar pneumonia. 5. ? No pulmonary embolus or aortic dissection. A&P Assessment and plan (1) Bronchiolitis: (2) Emphysema lung: (3) Community acquired pneumonia: Qualifiers: Laterality: left Lung location: lower lobe of lung Qualified Code(s): J18.9 - Pneumonia, unspecified organism (4) Acute exacerbation of chronic obstructive airways disease: (5) Acute and chronic respiratory failure with hypoxia: (6) Mucus plug in respiratory tract: (7) Dysphagia: (8) Squamous cell carcinoma of right tonsil: (9) Dehydration: (10) UTI (urinary tract infection): Plan 1. Acute on chronic respiratory failure, pneumonia, bronchiolitis, mucous plugging * Admit to [facility], full code. * Currently on nonrebreather will have respiratory titrate. * Antibiotics for pneumonia and bronchiolitis * DuoNebs and Mucomyst nebs for mucus plugging * Consult pulmonary in a.m. for possible bronc washout 2. Dehydration * IV fluid hydration * says she gives 180 cc flush after meds and after tube feeds. 3. UTI * Should have appropriate coverage with pneumonia coverage antibiotics 4. Dysphagia due to radiation therapy * Patient takes TwoCal for cans a day * I was unable to find [employer] and ordered Pulmocare for his tube feeds 5. Squamous cell carcinoma of right tonsil last treated end of April [address] Justice 6. Tachycardia-anticipate improvement with hydration and antibiotics Attestations Medical Necessity Statement*: Patient is acutely ill with chronic underlying illness. He will need IV antibiotics fluids and pulmonary toilet for a couple of days. He is expected to cross 2 midnights Coding Level of Care Code Acute Code for Chg Fwd Diagnoses Bronchiolitis J21.9 Emphysema lung J43.9 Community acquired pneumonia J18.9 Laterality: left Lung location: lower lobe of lung Acute exacerbation of chronic obstructive airways disease J44.1 Acute and chronic respiratory failure with hypoxia J96.21 Mucus plug in respiratory tract T17.998A Dysphagia R13.10 Squamous cell carcinoma of right tonsil C09.9 Dehydration E86.0 UTI (urinary tract infection) N39.0
[2022-12-23] MEDS: vancomycin 750 MG in sodium chloride 0.9% 250 ML 250 MG IV ×3 (04:54→20:34)
[2022-12-23] MEDS: acetylcysteine 200 mg/mL SDV 4 mL INHALATION ×5 (05:16→21:38)
[2022-12-23] MEDS: ipratropium-albuterol 3 mL Neb INHALATION ×3 (05:17→11:06)
[2022-12-23] MEDS: piperacillin-tazobactam 3.375 GM in sodium chloride 0.9% (plus) 50 ML IV ×3 (07:43→23:18)
[2022-12-23 07:46] LABS: Glucose Point of Care 128 mg/dL (70-110)
[2022-12-23] MEDS: budesonide 0.5 mg/2 mL Neb INHALATION ×2 (07:49→21:39)
[2022-12-23] MEDS: digoxin 125 mcg Tablet 62.5 MCG PO (09:32)
--- NOTE | 2022-12-23 10:28 | PC.NURSE ---
0945 Tube feeding pt tolerated 80z of pulmocare 1.5 and 180ml of free water.
[2022-12-23 11:26] LABS: Glucose Point of Care 157 mg/dL (70-110)
[2022-12-23 14:42] LABS: Iron 21 ug/dL (59-158); Percent Saturation 7.3 % (20-50); Total Iron Binding Capacity 285 mcg/dl; Unsaturated Iron Binding 264 ug/dL (112-347)
--- NOTE | 2022-12-23 14:43 | P.PN_ITS ---
Subjective Subjective: Admitted overnight. H&P and labs appreciated. Today morning seen with patient's spouse at bedside. Patient is on 2 L of oxygen supplementation saturation more than 95%. Patient looks tachypneic with audible stridor. Patient getting PEG tube feeds. denies any cough with PEG tube feeds. Patient states he thinks he is breathing at his baseline now and I think he can go home today. Blood work from admission appreciated. No blood work done today morning. Vitals appreciated with patient having sinus tachycardia with heart rate running more than 120s persistently since admission. Vitals/I&O/Wt Last Vital Signs Temp 97.7 F 12/23/22 11:13 Pulse 118 H 12/23/22 11:13 Resp 20 H 12/23/22 11:13 BP 111/71 12/23/22 11:13 Pulse Ox 100 12/23/22 11:13 O2 Del Method Nasal Cannula 12/23/22 11:13 O2 Flow Rate 3 12/23/22 11:08 12/22/22 12/23/22 12/23/22 22:59 06:59 14:59 Intake Total 2165.0 / 2165.0 1890 / 1890 Output Total 0 / 0 100 / 100 Balance 2165.0 / 2165.0 1790 / 1790 Weight last 48 hrs Weight 54.431 kg Physical Exam Narrative: General: No acute distress, AO x3, cachectic, chronically sick appearing, PEG tube in place HEENT: PERRLA, pupils bilaterally equal and reactive Chest: Bilateral audible stridor, bronchial breath sounds all over lung matson w ith occasional rhonchi and coarse crackles CVS: S1-S2 regular, no murmurs,tachycardia, no gallops, no rubs Abdomen: Soft, nontender, no organomegaly, bowel sounds present Neuro: No focal deficits, no facial deformity, AO x3, power 5/5 in all limbs Data 12/22/22 19:35 12/22/22 19:35 Micro: Microbiology 12/22/22 23:15 Blood Culture - Preliminary Blood SPECIMEN COLLECTED 12/22/22 23:07 Blood Culture - Preliminary Blood SPECIMEN COLLECTED A&P Assessment and plan (1) Acute and chronic respiratory failure with hypoxia: Most likely in setting of combination of acute exacerbation of COPD, community- acquired pneumonia along with stridor leading to respiratory failure. Patient does have findings of mucous plugging in the right lower zone but minimal. Appreciate CTA done on admission. CT neck with contrast done on December 08 shows persistent diffuse mucosal edema of the hypopharynx with enlargement of the epiglottitis and partial effacement of pyriform sinus which is stable to previous exam done on December 01. Back pain thought to be secondary radiation-induced injury. Given concerns for respiratory failure patient should be seen by ENT though is currently stable. ENT not on-call over the weekend. We will try to call on Sunday to see if patient would benefit from possible tracheostomy. For now because of sinus tachycardia switch to ipratropium, Xopenex every 4 hours. Continue with Mucomyst. Continue with Pulmicort twice daily. Continue with dexamethasone every 6 hours 4 mg IV. Check blood culture, sputum culture. If patient gets febrile will check for respiratory viral panel. Check procalcitonin, MRSA swab, urine Legionella, bacterial antigen, CRP. Sputum culture done on December 08 shows Staph aureus and Klebsiella. For now continue with IV vancomycin and Zosyn. Stop Levaquin. If MRSA is negative will discontinue vancomycin. Chest vest. (2) Bronchiolitis: (3) Emphysema lung: (4) Community acquired pneumonia: Qualifiers: Laterality: left Lung location: lower lobe of lung Qualified Code(s): J18.9 - Pneumonia, unspecified organism (5) Acute exacerbation of chronic obstructive airways disease: (6) Mucus plug in respiratory tract: (7) Sinus tachycardia: Most likely in setting of nebulization along with respiratory failure. Patient takes digoxin 62.5 mcg daily at home. Digoxin level is low. Increase digoxin to 125 mcg daily. Add metoprolol 25 mg twice daily. (8) Dysphagia: PEG tube in place. Continue tube feeds at home schedule. 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 Stop IV fluids. (11) UTI (urinary tract infection): (12) Diabetes mellitus: Check A1c. Patient not on OHA's at home. Add low-dose insulin sliding scale given patient being on high-dose steroids. Plan CODE STATUS: Discussed in detail with the patient. Patient does not want any life support or chest compressions. He wants to be DNR/DNI. will be the DPOA. at bedside during conversation. Continue with tube feeds. Heparin 5000 every 12 hourly for DVT prophylaxis. Protonix for PUD prophylaxis. Care discussed in detail with patient and patient's spouse at bedside. We discussed that patient will need to have IV antibiotics for few days and then ENT work-up prior to discharge. Discussed that there is a high chance of stridor, mucous plugging secondary to obstruction and epiglottitis from chronic radiation-induced edema leading to pneumonia and mucous plugging for which he would need to be on antibiotics for at least 10days to 2 weeks and few days of IV antibiotics till cultures results are available. Patient is agreeable to stay. Attestations Medical Necessity Statement*: Requires further hospitalization for management of acute on chronic hypoxic respiratory failure in setting of exacerbation of COPD, chronic pneumonia, stridor in setting of edema of hypopharynx and epiglottitis Diagnoses Acute and chronic respiratory failure with hypoxia J96.21 Bronchiolitis J21.9 Emphysema lung J43.9 Community acquired pneumonia J18.9 Laterality: left Lung location: lower lobe of lung Acute exacerbation of chronic obstructive airways disease J44.1 Mucus plug in respiratory tract T17.998A Sinus tachycardia R00.0 Dysphagia R13.10 Squamous cell carcinoma of right tonsil C09.9 Dehydration E86.0 UTI (urinary tract infection) N39.0 Diabetes mellitus E11.9
[2022-12-23] MEDS: metoprolol tartrate 25 mg Tablet PO ×2 (14:47→20:37)
[2022-12-23 14:56] LABS: Procalcitonin 0.22 ng/mL (0-0.5)
[2022-12-23] MEDS: acetaminophen 325 mg Tablet 650 MG PO (14:59)
[2022-12-23 15:39] LABS: Vitamin B12 > 2000 pg/mL (232-1245)
[2022-12-23] MEDS: ipratropium 0.5 mg/2.5 mL Neb INHALATION ×2 (16:06→21:39)
[2022-12-23] MEDS: levalbuterol 0.63 mg/3 mL Neb INHALATION ×2 (16:07→21:39)
[2022-12-23 16:23] LABS: C Reactive Protein 99.5 mg/L (0.0-4.9)
--- NOTE | 2022-12-23 16:54 | PC.NUTR ---
consult received for TF recs. Recommend bolus pulmocare 1.5 at 300ml QID with FWF 150 q4hrs. This provides 1200ml TF, 1800kcal, 75g protein, and 942ml TF fluids; 900ml FWF; total 1842ml fluids. If continuous feeds preferred, recommend goal rate of Pulmocare at 60ml/hr x 20 hours with 150ml FWF q4hrs to provide the 1800kcal, 75g protein, and 942ml TF fluids; 900ml FWF; total 1842ml fluids.
[2022-12-23 17:06] LABS: Glucose Point of Care 171 mg/dL (70-110)
[2022-12-23] MEDS: dexamethasone 10 mg/mL INJ 4 MG IVP ×2 (17:08→23:18)
--- NOTE | 2022-12-23 20:07 | PC.NURSE ---
Spoke with Dr. Dobson regarding patient with urinary urgency unable to urinate. Bladderscan revealed 815ml in bladder. ordered for insertion of noonan catheter.
[2022-12-23] MEDS: sodium chloride 0.9% 1,000 ML 75 ML IV (20:33)
[2022-12-23] MEDS: trazodone 50 mg Tablet PO (20:37)
[2022-12-23 21:14] LABS: Glucose Point of Care 154 mg/dL (70-110)
[2022-12-23] MEDS: insulin lispro 100 unit/1 mL SUBCUT (21:43)
[2022-12-24] VITALS (7 sets, daily range): BP systolic 106–114; BP diastolic 64–79; PULSE 89–118; RESP 13–22; TEMP 36.6–36.7; O2SAT 89–96
[2022-12-24] MEDS: ipratropium 0.5 mg/2.5 mL Neb INHALATION ×3 (01:08→07:52)
[2022-12-24] MEDS: levalbuterol 0.63 mg/3 mL Neb INHALATION ×2 (01:08→05:03)
[2022-12-24] MEDS: acetylcysteine 200 mg/mL SDV 4 mL INHALATION ×3 (01:08→07:53)
[2022-12-24 02:37] LABS: INR 1.01 (0.8-1.2)
[2022-12-24 02:44] LABS: Alanine Aminotransferase 36 U/L (0-41); Albumin Level 2.6 g/dL (3.5-5.2); Alkaline Phosphatase 105 U/L (40-130); Anion Gap 10.9 (5-19); Aspartate Amino Transferase 34 U/L (0-40); Blood Urea Nitrogen 34 mg/dL (8-23); Calcium 9.2 mg/dL (8.5-10.5); Carbon Dioxide 29 mmol/L (22-29); Chloride 105 mmol/L (98-107); Globulin 3.4 g/dL (1.3-4.6); Glomerular Filtration Rate 166.4 mL/min (90-130); Glucose 146 mg/dL (65-115); Osmolality Calculated 300 mOsm/kg (285-295); Potassium 4.9 mmol/L (3.5-5.1); Sodium 140 mmol/L (136-145); Total Bilirubin 0.2 mg/dL (0.15-1.2)
[2022-12-24 02:47] LABS: Magnesium 2.1 mg/dL (1.7-2.3); Phosphorus 3.7 mg/dL (2.5-4.5)
[2022-12-24 02:48] LABS: Estmated Average Glucose 103; Hemoglobin A1C 5.2 % (4.0-6.0)
[2022-12-24 04:21] LABS: Vancomycin Trough 14.6 ug/mL (10-15)
[2022-12-24] MEDS: dexamethasone 10 mg/mL INJ 4 MG IVP (05:08)
[2022-12-24] MEDS: vancomycin 750 MG in sodium chloride 0.9% 250 ML 250 MG IV (05:08)
[2022-12-24 05:24] LABS: Folate Level > 20.0 ng/mL (4.5-32.2)
[2022-12-24 06:35] LABS: Glucose Point of Care 138 mg/dL (70-110)
[2022-12-24] MEDS: piperacillin-tazobactam 3.375 GM in sodium chloride 0.9% (plus) 50 ML IV (07:50)
[2022-12-24] MEDS: budesonide 0.5 mg/2 mL Neb INHALATION (07:54)
[2022-12-24] MEDS: digoxin 125 mcg Tablet PO (08:40)
[2022-12-24] MEDS: metoprolol tartrate 25 mg Tablet PO (08:40)
--- NOTE | 2022-12-24 12:55 | P.DS_ITS ---
Discharge Providers Date of Admission: 12/22/22 23:11 Date of Discharge: December 24, 2022 Attending Provider at Admission: Fabricio Dobson DO Attending Provider at Discharge: Kashmir Beverly MD Primary Care Provider: Katrina Gaytan MD Diagnoses at Discharge Discharge Diagnosis (1) Acute and chronic respiratory failure with hypoxia: Status: Acute (2) Bronchiolitis: Status: Acute (3) Emphysema lung: Status: Acute (4) Community acquired pneumonia: Status: Acute Qualifiers: Laterality: left Lung location: lower lobe of lung Qualified Code(s): J18.9 - Pneumonia, unspecified organism (5) Acute exacerbation of chronic obstructive airways disease: Status: Acute (6) Mucus plug in respiratory tract: Status: Acute (7) Sinus tachycardia: Status: Acute (8) Dysphagia: Status: Chronic (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 (10) Dehydration: Status: Acute (11) UTI (urinary tract infection): Status: Acute (12) Diabetes mellitus: Status: Chronic Reason for Visit Reason for Visit: SOB/COPD Brief History: History as per HPI: Chacorta Siegel is a 67 year old male with known severe COPD who saw Dr. Escalera for the first time within a week or so.? He presents with worsening shortness of breath and hypoxia in the mid 80s.? He was placed on 6 L oxygen.? However he is a mouth breather and had to be placed on a nonrebreather.? Treatment for his COPD included nebulizers and chest percussion performed by the .? Unfortunately he continued to get worse and came in for care tonight.? He denies associated symptoms no chest pain nausea vomiting.? Denies fever or chills.? No sick contacts. Of note: He is a current every day smoker.? Been smoking for 50 years. He has a history of tonsillar cancer on the right he was finished with chemotherapy and radiation therapy in April 2020.? Unfortunately he lost a significant amount of weight and it was not until August of this year that he was able to obtain a PEG tube.? He has gained approximately 25 pounds since August with tube feedings.? Has dysphagia due to the radiation therapy. Hospital Course Hospital Course Patient was admitted to the hospital further evaluation and management of acute respiratory failure with hypoxia. Etiology of respiratory failure is most likely stridor in setting of epiglottitis and edema of hypopharynx related to radiation therapy along with COPD exacerbation in setting of mucous plugging secondary to community-acquired pneumonia. He was started on admission treatment, IV steroids and antibiotics as per his recent sputum culture which grew Staph aureus and Klebsiella. Patient responded well to the treatment and is respiratory distress improved. Continues to require 2 to 3 L of oxygen supplementation. His hospitalization was also complicated by him developing urinary retention for which Denise catheter was placed. Patient required to stay further in the hospital to complete IV antibiotic course, repeat blood cultures along with a follow-up with the ENT physician for possible need of tracheostomy given stridor in setting of epiglottitis and hypopharynx edema secondary to radiation therapy. Patient was counseled in detail multiple times to remain in hospital for completion of treatment to prevent him from getting worse or readmission. Patient verbalized understanding but was adamant on going home. On review patient has left hospital AMA multiple times without completion of treatment. Patient was counseled again against leaving AMA as that can mean for him to get worse, possible need of intubation for respiratory failure without completion of treatment. It was discussed that this pattern of leaving AMA without completion of treatment is just making you worse than making him better. Patient states he would just want to go home. Hospice care was also discussed in detail because of patient's current goals of care. Patient and patient's would want to discuss further amongst each other and follow-up as an outpatient with primary care provider if and when need arises for hospice. Patient prefers to go home with Denise in place for urinary retention. Patient was advised in detail about Denise care along with follow-up with his primary care provider for referral for urologist for a voiding trial in the office. Patient was also informed that Denise needs to be replaced if it remains in place for more than 2 to 3 weeks. Patient verbalized understanding and left AMA. Physical Exam Narrative: General: No acute distress, AO x3, cachectic, chronically sick appearing, PEG tube in place, stridor present HEENT: PERRLA, pupils bilaterally equal and reactive Chest: Bilateral audible stridor, bronchial breath sounds all over lung matson with occasional rhonchi and coarse crackles CVS: S1-S2 regular, no murmurs,tachycardia, no gallops, no rubs Abdomen: Soft, nontender, no organomegaly, bowel sounds present Neuro: No focal deficits, no facial deformity, AO x3, power 5/5 in all limbs Urinary Catheter Management: Denise: Cath Placed During This Visit: yes Reason for Continuing Indwelling Catheter: Acute Urinary Retention or Obstruction Urinary Catheter Date of Insertion: 12/23/22 Urinary Catheter Time of Insertion: 20:27 Discharge Data Studies Completed and Pending Completed Studies During Hospitalization Category Date Time Status CT angio chest PE protcl [id number] Stat Cat Scan 12/22/22 21:40 Completed XR chest 1V portable [id number] Stat Exams 12/22/22 19:50 Completed Pending at discharge Category Date Time Status Blood Culture Stat Lab 12/22/22 23:15 Results MRSA by PCR Routine Lab 12/23/22 14:50 Received Sputum Culture and Gram Stain Stat Lab 12/23/22 15:05 Results Radiology Impressions Chest X-Ray 12/22/22 19:50 IMPRESSION: 1. Continued mild left basilar atelectasis and/or infiltrate and/or scarring. 2. Stable COPD . Chest CTA 12/22/22 21:40 IMPRESSION: 1. Severe calcified coronary artery disease. 2. Mild centrilobular emphysema. 3. Mucous plugs and peribronchial thickening in the right lower lobe with peribronchial thickening in the left lower lobe consistent with bronchitis. 4. Mild inferior segment lingula and left basilar pneumonia. 5. No pulmonary embolus or aortic dissection. COMMENTS: In the absence of a history or active diagnosis of lung cancer, it is recommended that this patient with emphysema be evaluated for enrollment in a low dose CT lung cancer screening program. Microbiology 12/23/22 14:50 Nose MRSA Culture - Final 12/23/22 15:05 Sputum - Expectorated Sputum Gram Stain - Final 12/23/22 15:05 Sputum - Expectorated Sputum Sputum Culture - Preliminary 12/22/22 22:01 Urine,Clean Catch Urine Culture - Final 12/22/22 23:15 Blood Blood Culture - Preliminary NEGATIVE TO DATE 12/22/22 23:07 Blood Blood Culture - Preliminary NEGATIVE TO DATE 12/23/22 14:54 Unknown Source Legionella Urinary Antigen - Final 12/23/22 14:54 Urine Kidney Bacterial Antigens - Final Laboratory Results WBC 14.9 10^3/uL (4.0-10.0) H 12/22/22 19:35 RBC 3.86 10^6/uL (4.1-5.3) L 12/22/22 19:35 Hgb 11.2 g/dL (11.7-16.6) L 12/22/22 19:35 Hct 35.1 % (42.0-52.0) L 12/22/22 19:35 MCV 90.9 fl (80-94) 12/22/22 19:35 MCH 29.0 pg (28.0-34.0) 12/22/22 19:35 MCHC 31.9 g/dL (30.0-36.0) 12/22/22 19:35 RDW 14.4 % (12.1-15.1) 12/22/22 19:35 Plt Count 360 10^3/cmm (130-400) 12/22/22 19:35 MPV 10.0 fL (7.4-10.4) 12/22/22 19:35 Neut % (Auto) 88.4 % 12/22/22 19:35 Lymph % (Auto) 4.8 % 12/22/22 19:35 [place] % (Auto) 5.3 % 12/22/22 19:35 Eos % (Auto) 0.5 % 12/22/22 19:35 Baso % (Auto) 0.3 % 12/22/22 19:35 Neut # (Auto) 13.21 10^3/uL (1.8-7.7) H 12/22/22 19:35 Lymph # (Auto) 0.7 10^3/uL (0.8-4.8) L 12/22/22 19:35 [place] # (Auto) 0.8 10^3/uL (0.2-0.9) 12/22/22 19:35 Eos # (Auto) 0.1 10^3/uL (0.0-0.8) 12/22/22 19:35 Baso # (Auto) 0.0 10^3/uL (0.0-0.1) 12/22/22 19:35 Nucleated RBC % (auto) 0 % 12/22/22 19:35 Nucleated RBCs # 0.0 /100WBC 12/22/22 19:35 PT 13.60 SECONDS (12.1-14.9) 12/24/22 02:07 INR 1.01 (0.8-1.2) 12/24/22 02:07 Specimen Type Arterial 12/22/22 19:53 Sample Site Radial, right 12/22/22 19:53 ABG pH 7.45 (7.35-7.45) 12/22/22 19:53 ABG pCO2 50.9 mmHg (35-45) H 12/22/22 19:53 ABG pO2 69.7 mmHg (80.0-100.0) L 12/22/22 19:53 ABG HCO3 35.5 mmol/L (22-26) H 12/22/22 19:53 ABG Base Excess 10.1 mmol/L (-2.0-2.0) H 12/22/22 19:53 Roge Test Pos 12/22/22 19:53 Hematocrit 33.5 % (42-52) L 12/22/22 19:53 Hgb O2 Saturation 85.5 % (95-100) L 12/22/22 19:53 Carboxyhemoglobin 11.3 %THgb (0.4-20.1) 12/22/22 19:53 Methemoglobin 0.1 % (0.4-1.5) L 12/22/22 19:53 Total Hemoglobin 10.9 g/dL (14-18) L 12/22/22 19:53 O2 Delivery Device Nc 12/22/22 19:53 O2 Liters/Min 2.0 % 12/22/22 19:53 Trim Technician ID [email or web address] 12/22/22 19:53 Sodium 140 mmol/L (136-145) 12/24/22 02:07 Potassium 4.9 mmol/L (3.5-5.1) 12/24/22 02:07 Chloride 105 mmol/L (98-107) 12/24/22 02:07 Carbon Dioxide 29 mmol/L (22-29) 12/24/22 02:07 Anion Gap 10.9 (5-19) 12/24/22 02:07 BUN 34 mg/dL (8-23) H 12/24/22 02:07 Creatinine 0.5 mg/dL (0.7-1.2) L 12/24/22 02:07 GFR Calculation 166.4 mL/min (90-130) H 12/24/22 02:07 Glucose 146 mg/dL (65-115) H 12/24/22 02:07 POC Glucose 138 mg/dL (70-110) H 12/24/22 06:08 Estimat Average Glucose 103 12/24/22 02:07 Hemoglobin A1c 5.2 % (4.0-6.0) 12/24/22 02:07 Calculated Osmolality 300 mOsm/kg (285-295) H 12/24/22 02:07 Lactic Acid 0.9 mmol/L (0.5-2.2) 12/22/22 22:08 Calcium 9.2 mg/dL (8.5-10.5) 12/24/22 02:07 Phosphorus 3.7 mg/dL (2.5-4.5) 12/24/22 02:07 Magnesium 2.1 mg/dL (1.7-2.3) 12/24/22 02:07 Iron 21 ug/dL (59-158) L 12/22/22 19:35 TIBC 285 mcg/dl 12/22/22 19:35 % Saturation 7.3 % (20-50) L 12/22/22 19:35 Unsat Iron Binding 264 ug/dL (112-347) 12/22/22 19:35 Total Bilirubin 0.2 mg/dL (0.15-1.2) 12/24/22 02:07 AST 34 U/L (0-40) 12/24/22 02:07 ALT 36 U/L (0-41) 12/24/22 02:07 Alkaline Phosphatase 105 U/L (40-130) 12/24/22 02:07 Troponin T Gen 5 ng/L 47 ng/L (0-15) H 12/22/22 19:35 C-Reactive Protein 99.5 mg/L (0.0-4.9) H 12/22/22 19:35 NT-Pro-B Natriuret Pep 518 pg/mL (0-125) H 12/22/22 19:35 Total Protein 6.0 g/dL (6.6-8.7) L 12/24/22 02:07 Albumin 2.6 g/dL (3.5-5.2) L 12/24/22 02:07 Globulin 3.4 g/dL (1.3-4.6) 12/24/22 02:07 Vitamin B12 > 2000 pg/mL (232-1245) H 12/22/22 19:35 Folate > 20.0 ng/mL (4.5-32.2) 12/24/22 02:07 Procalcitonin 0.22 ng/mL (0-0.5) 12/22/22 19:35 Procalcitonin 0.23 ng/mL (0-0.5) 12/22/22 19:35 Urine Color Yellow (Yellow) 12/22/22 22:01 Urine Appearance Turbid (CLEAR) A 12/22/22 22:01 Urine pH 5 (5-7) 12/22/22 22:01 Ur Specific [place] 1.020 (1.005-1.030) 12/22/22 22:01 Urine Protein 1+ (Negative) H 12/22/22 22:01 Urine Glucose (UA) Norm (Normal) 12/22/22 22:01 Urine Ketones 1+ (Negative) H 12/22/22 22:01 Urine Blood 3+ (Negative) H 12/22/22 22:01 Urine Nitrate Negative (Negative) 12/22/22 22:01 Urine Bilirubin Neg (Negative) 12/22/22 22:01 Urine Urobilinogen Norm mg/dL (Negative) 12/22/22 22:01 Ur Leukocyte Esterase 2+ (Negative) H 12/22/22 22:01 Urine RBC >100 /hpf (0-2) H 12/22/22 22:01 Urine WBC >100 /hpf (0-5) H 12/22/22 22:01 Ur Squamous Epith Cells 0-4 /hpf (0-5) H 12/22/22 22:01 Ur Renal Epithelial Cell 3 /hpf 12/22/22 22:01 Amorphous Sediment Not Reportable 12/22/22 22:01 Urine Bacteria 2+ /hpf (NONE) H 12/22/22 22:01 Vancomycin Trough 14.6 ug/mL (10-15) 12/24/22 03:56 Digoxin 0.5 ng/mL (0.6-1.2) L 12/22/22 19:35 Vitals Last Vital Signs Temp 98.0 F 12/24/22 07:29 Pulse 112 H 12/24/22 08:40 Resp 18 12/24/22 07:55 BP 114/64 12/24/22 07:29 Pulse Ox 94 12/24/22 07:55 O2 Del Method Nasal Cannula 12/24/22 07:55 O2 Flow Rate 4 12/24/22 07:55 Discharge Plan Discharge Patient Disposition: Left Against Medical Advice Condition: Stable Prescriptions: No Action Suzyi Aerosphere 160-9-4.8 mcg/actuation HFA aerosol inhaler 2 inh inhalation BID (DME) Afflovest See Rx Instructions .Route .MEDSUPPLY Qty: 1 0RF Rx Instructions: As directed guaifenesin [Mucinex Fast-Max Chest-Congest] 100 mg/5 mL liquid 200 mg PO Q4H PRN (Reason: cough) Qty: 473 6RF ondansetron HCl 4 mg tablet 4 mg PO Q6H PRN (Reason: nausea and vomiting) 30 Days Qty: 90 0RF albuterol sulfate 90 mcg/actuation HFA aerosol inhaler 2 inh INHALATION Q4H PRN (Reason: shortness of breath or wheezing) Qty: 18 0RF acetaminophen 500 mg Tablet 1,000 mg PO BID PRN (Reason: Pain) albuterol sulfate 2.5 mg /3 mL (0.083 %) Solution For Nebulization 2.5 mg INHALATION Q6H PRN (Reason: Shortness Of Breath) aspirin 81 mg Tablet,Delayed Release (Dr/Ec) 81 mg PO QAM cholecalciferol (vitamin D3) [Vitamin D3] 25 mcg (1,000 unit) Tablet 25 mcg PO QPM rosuvastatin [Crestor] 20 mg Tablet 10 mg PO QAM polyethylene glycol 3350 [Miralax] 17 gram Powder In Packet 17 g PO DAILY PRN (Reason: Constipation) TwoCal HN Liquid See Rx Instructions .ROUTE .COMPLEX Rx Instructions: 8oz po four times a day as directed nystatin 100,000 unit/mL suspension See Rx Instructions .ROUTE .COMPLEX Rx Instructions: swish and swallow 5ml three times a day as needed digoxin 125 mcg (0.125 mg) tablet 62.5 mcg PO QAM Centrum 0.4-162-18 mg Tablet 1 tab feeding tube DAILY Other Ambulatory Orders: DME: Nebulizer with Neb Kit (Order) Location: None Selected Ordered By: Kashmir Beverly Referrals: Katrina Gaytan MD [Primary Care Provider] - Discharge Diet: Resume prior tube feeds Discharge Activity: Resume usual activity Patient Instructions: Chronic Respiratory Failure (DC), Acute Respiratory Failure (GEN), CHF Stoplight, COPD Stoplight, Opioid Safety Activity Restrictions/Additional Instructions: Patient should stay in the hospital for longer to complete the course of IV anti biotics at home, follow-up cultures, and the ENT consult for possible need of tracheostomy for developing stridor. Patient showed follow-up with ENT as an outpatient for further evaluation. He should follow-up with a urologist for voiding trial. If Denise remains in place for more than 2 weeks which replaced. Discharge Attestations Time Spent in Discharge Care*: greater than 30 min Specific Discharge Activities: educating patient, educating and/or supporting family/caregiver, discussing with pcp/other providers, discussing with skilled nursing case manager/social workers/dc planners, documenting/other paperwork and evaluating patient/reviewing data Status at Discharge: Cognitive status at discharge: cognitively intact , Behavioral status at discharge: cooperative , Functional status at discharge: wheelchair bound , Overall status at discharge: patient is not back to baseline Quality Metrics Clinical Quality Measures [ No reported AMI, CVA or VTE this stay] Coding Level of Care Code 69565 Total time (in minutes) for Discharge: 60 Diagnoses Acute and chronic respiratory failure with hypoxia J96.21 Bronchiolitis J21.9 Emphysema lung J43.9 Community acquired pneumonia J18.9 Laterality: left Lung location: lower lobe of lung Acute exacerbation of chronic obstructive airways disease J44.1 Mucus plug in respiratory tract T17.998A Sinus tachycardia R00.0 Dysphagia R13.10 Squamous cell carcinoma of right tonsil C09.9 Dehydration E86.0 UTI (urinary tract infection) N39.0 Diabetes mellitus E11.9
== END 2022-12-24 10:38 | disposition left against medical advice (07) | DRG 193 ==
LOC: ER 23:11 → CSU 23:12
PROVIDERS: Admitting Provider Internal Medicine; Emergency Provider Emergency Medicine; PCP Family Medicine; Visit Provider Student in an Organized Health Care Education/Training Program
DX: J18.9 Pneumonia, unspecified organism (principal); J96.01 Acute respiratory failure with hypoxia; J05.10 Acute epiglottitis without obstruction; N39.0 Urinary tract infection, site not specified; J21.9 Acute bronchiolitis, unspecified; K22.2 Esophageal obstruction; W88.1XXS Exposure to radioactive isotopes, sequela; Z99.81 Dependence on supplemental oxygen; F17.210 Nicotine dependence, cigarettes, uncomplicated; Z85.818 Personal history of malignant neoplasm of other sites of lip, oral cavity, and pharynx; Z92.21 Personal history of antineoplastic chemotherapy; Z92.3 Personal history of irradiation; R13.10 Dysphagia, unspecified; R33.9 Retention of urine, unspecified; Z53.29 Procedure and treatment not carried out because of patient's decision for other reasons; Z79.51 Long term (current) use of inhaled steroids; I25.10 Atherosclerotic heart disease of native coronary artery without angina pectoris; Z95.5 Presence of coronary angioplasty implant and graft; Z86.718 Personal history of other venous thrombosis and embolism; E11.9 Type 2 diabetes mellitus without complications; E78.5 Hyperlipidemia, unspecified; I10 Essential (primary) hypertension; Z66 Do not resuscitate; R00.0 Tachycardia, unspecified; E86.0 Dehydration; J43.9 Emphysema, unspecified; Z86.73 Personal history of transient ischemic attack (TIA), and cerebral infarction without residual deficits; Z95.828 Presence of other vascular implants and grafts; G47.33 Obstructive sleep apnea (adult) (pediatric)
CPT/HCPCS: 36415; 36416; 36600; 51702; 71045; 71275; 80053; 80162; 80202; 81001; 82607; 82746; 82805; 82962; 83036; 83540; 83550; 83605; 83735; 83880; 84100; 84145; 84484; 85025; 85610; 86140; 86403; 87040; 87070; 87086; 87205; 87449; 87641; 93005; 94640; 94664; 96365; 96372; 96375; 96376; 99285; J1100; J1644; J1815; J1956; J2543; J3370; J7030; J7050; J7608; J7614; J7626; J7644; Q9967

== ENCOUNTER 2022-12-25 04:41 | Emergency (ER) | payer OTHER, SELFPAY ==
--- NOTE | 2022-12-25 04:43 | W.ED.MALEGU ---
HPI - Male Genitourinary General: Chief complaint: General Medical Stated complaint: needs cath out Time Seen by Provider: 12/25/22 04:42 History of Present Illness: Mr. Siegel is a 67-year-old gentleman with complex past medical history presenting to the emergency department with desire to have catheter removed. He was hospitalized and left AMA yesterday with a Denise catheter in place with plan for outpatient follow-up and urology referral. He denies complications with the catheter but simply wants it taken out. He is quite adamant. Otherwise feels essentially baseline. He has plan to follow-up with his primary care provider on the fifth. No other specific changes in health, exacerbating, or alleviating factors identified. Review of Systems General: Reports: 10 or more systems reviewed and unremarkable except in HPI and below PFSH ED PFSH: Medical History COPD (chronic obstructive pulmonary disease) Coronary artery disease Deep vein thrombosis (DVT) of axillary vein of right upper extremity Diabetes mellitus Elevated PSA Variable levels when checked over time, high and low, has seen Dr Lincoln, not evaluating further at this time as noted per Urology clinic notes Gross hematuria Hyperlipidemia Hypertension GIDEON (obstructive sleep apnea) Presence of other vascular implants and grafts PowerPort left subclavian Dr. Mead 03/07/2022 Squamous cell carcinoma of right tonsil Treated with cisplatin (last dose 05/09/22) and radiation (last treatment 05/24/22); Follows with Dr Justice. Stroke Tachycardia-bradycardia Uses feeding tube Surgical History History of heart artery stent 1996 History of percutaneous endoscopic gastrostomy With subsequent removal due to leakage and perforation History of surgery on arm History of surgery on lower extremity Family History Mother Cancer lung Father Stroke Sister Cancer lung Other Bleeding disorder Clotting disorder Diabetes Hyperlipidemia Social History Smoking and tobacco status: current every day smoker cigarettes Packs smoked per day: 1.5 Alcohol intake: never Substance/Drug Use: never Lives independently: Yes Household members: family Marital status: Current occupational status: retired Physical Exam Const: COMMON NORMALS: alert GENERAL APPEARANCE: cooperative, well developed and ill appearing HENMT: COMMON NORMALS: normocephalic and atraumatic HEAD & SCALP: normocephalic and atraumatic Eye: COMMON NORMALS: conjunctivae normal CONJUNCTIVA: Yes conjunctivae normal SCLERA: sclerae normal Neck/C-Spine: COMMON NORMALS: supple GENERAL: Yes trachea midline Resp: COMMON NORMALS: normal respiratory effort and clear to auscultation bilaterally EFFORT & INSPECTION: Yes able to speak in complete sentences AUSCULTATION: clear to auscultation bilaterally OTHER: Transmitted upper airway noises Cardio: COMMON NORMALS: regular rhythm RATE: tachycardic RHYTHM: regular rhythm GI: PERCUSSION: normal to percussion : OTHER: Clear urine in Denise catheter bag Extremity: GENERAL: Yes normal exam except as noted and No edema Neuro: COMMON NORMALS: moves all extremities SENSORIUM/ORIENTATION: Yes alert and No Orientation impaired Psych: COMMON NORMALS: mental status grossly normal and Normal thought process present THOUGHT PROCESS: Normal thought process present Course Vital Signs: Vital signs: Vital Signs Temperature 98.5 F 12/25/22 05:06 Pulse Rate 138 H 12/25/22 05:06 Respiratory Rate 18 12/25/22 05:06 Blood Pressure 106/72 12/25/22 05:06 Pulse Oximetry 94 12/25/22 05:06 MDM - Male Medical Decision Making 67-year-old gentleman with quite complex past medical history presenting with demand of having catheter removed. He is quite adamant. I discussed risks of catheter removal and recommend leaving the catheter in place for proper follow-up which the patient declined. I directed the nurse to remove Denise catheter. The results of ED evaluation were discussed with the patient including prescriptions and/or symptomatic cares (if applicable) including appropriate and responsible use, followup plan, and return precautions. The patient verbalized understanding and felt safe for discharge. Medical Records I reviewed the patient's medical records. Lab Data I reviewed the patient's lab results. Discharge Plan Discharge Patient Disposition: Home Clinical Impression: Denise catheter in place Condition: Stable Prescriptions: No Action Breztri St[employer] 160-9-4.8 mcg/actuation HFA aerosol inhaler 2 inh inhalation BID (DME) Afflovest See Rx Instructions .Route .MEDSUPPLY Qty: 1 0RF Rx Instructions: As directed guaifenesin [Mucinex Fast-Max Chest-Congest] 100 mg/5 mL liquid 200 mg PO Q4H PRN (Reason: cough) Qty: 473 6RF ondansetron HCl 4 mg tablet 4 mg PO Q6H PRN (Reason: nausea and vomiting) 30 Days Qty: 90 0RF albuterol sulfate 90 mcg/actuation HFA aerosol inhaler 2 inh INHALATION Q4H PRN (Reason: shortness of breath or wheezing) Qty: 18 0RF acetaminophen 500 mg Tablet 1,000 mg PO BID PRN (Reason: Pain) albuterol sulfate 2.5 mg /3 mL (0.083 %) Solution For Nebulization 2.5 mg INHALATION Q6H PRN (Reason: Shortness Of Breath) aspirin 81 mg Tablet,Delayed Release (Dr/Ec) 81 mg PO QAM cholecalciferol (vitamin D3) [Vitamin D3] 25 mcg (1,000 unit) Tablet 25 mcg PO QPM rosuvastatin [Crestor] 20 mg Tablet 10 mg PO QAM polyethylene glycol 3350 [Miralax] 17 gram Powder In Packet 17 g PO DAILY PRN (Reason: Constipation) TwoCal HN Liquid See Rx Instructions .ROUTE .COMPLEX Rx Instructions: 8oz po four times a day as directed nystatin 100,000 unit/mL suspension See Rx Instructions .ROUTE .COMPLEX Rx Instructions: swish and swallow 5ml three times a day as needed digoxin 125 mcg (0.125 mg) tablet 62.5 mcg PO QAM Centrum 0.4-162-18 mg Tablet 1 tab feeding tube DAILY Discharge Orders: Discharge ED (Routine); Ordered 12/25/22 Ordered By: Jayesh Luther Referrals: Katrina Gaytan MD [Primary Care Provider] - Discharge Diet: As Directed Discharge Activity: Limit activity as instructed Patient Instructions: Denise Catheter Removal (DC) Activity Restrictions/Additional Instructions: Thank you for visiting the emergency department. You were seen and evaluated for concern over the catheter. I recommended keeping the catheter in place which you are adamantly declining. Please follow-up with your primary care provider. Return for any changes inability to urinate, abdominal pain, or anything else that you are concerned about and feel needs emergency department evaluation. Coding Level of Care Code ED Manager Of Administration for Bernice Day
[2022-12-25 04:48] VITALS: BP 106/72; PULSE 138; RESP 18; TEMP 36.9; O2SAT 94; BMI 16.6
[2022-12-25 05:06] VITALS: BP 106/72; PULSE 138; RESP 18; TEMP 36.9; O2SAT 94
== END 2022-12-25 05:07 | disposition home or self-care (01) ==
PROVIDERS: Emergency Provider Emergency Medicine; PCP Family Medicine
DX: Z46.6 Encounter for fitting and adjustment of urinary device (principal)
CPT/HCPCS: 99282

== ENCOUNTER 2023-01-02 07:55 | Outpatient (CLI) | payer OTHER, MEDICAID, SELFPAY ==
[2023-01-02 08:24] VITALS: PULSE 109; RESP 20; O2SAT 98
[2023-01-02] MEDS: albuterol 2.5 mg/3 mL Neb INHALATION (08:24)
[2023-01-02 08:29] VITALS: PULSE 118
== END 2023-01-02 07:56 | disposition home or self-care (01) ==
LOC: RT 08:01
PROVIDERS: PCP Family Medicine; Visit Provider Internal Medicine Pulmonary Disease
DX: R06.02 Shortness of breath (principal)
CPT/HCPCS: 94060; 94729; J7613

== ENCOUNTER 2023-01-05 08:17 | Oncology outpatient (recurring) (ONCR) | payer OTHER, SELFPAY ==
--- NOTE | 2023-01-05 09:04 | ONCRAD EPV_ITS ---
Radiation Oncology Follow-Up Note Patient Name: Chacorta Siegel Date of : 1955 Date of Service: 01/05/2023 Attending Physician: Rahat Parham M.D. 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 The patient was evaluated at the [facility] Emergency Department in December for odynophagia. A CT scan of the neck ordered on December 27, 2021 demonstrated irregular fluid collections within the bilateral sienna-tonsillar tissues measuring 4.1 cm x 2.4 cm x 2 cm and bilateral enhancing cervical lymphadenopathy. He was transferred to the [facility] in [place], [place] for further management. A flexible laryngoscopy was performed by the on-call plaster pattern caster. Significant findings included enlargement of the right tonsil with exudate. 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 A repeat neck CT scan described irregular mucosal thickening and enhancement of the oropharyngeal and hypopharyngeal mucosa involving the tonsils, glossotonsillar pillars, base of tongue, and inferior soft palate. Also reported were bilateral cervical lymphadenopathy within level II and level III lymph node stations. He was discharged with referral for definitive management. PET imaging obtained on February 07, 2022 confirmed hypermetabolic activity within the oropharyngeal mass and bilateral cervical levels II and III. Combined modality treatment was recommended. Head and neck radiation therapy was delivered between the dates of March 13, 2022 through May 24, 2022. A dose of 70 Gy was delivered in 35 fractions encompassing 63 elapsed days. He was prescribed cisplatin (100 mg/m2). On review of systems, he described dyspnea. On physical examination, he weighed 116 lbs. His temperature was 97.1???F and the blood pressure was 102/70 mmHg. The pulse was 114 bpm and his respiratory rate was 18 breaths per minute. Oxygen saturation while breathing ambient air was 985. I did not identify any cervical lymphadenopathy. Submental lymphedema was noted. I prescribed a Medrol Dosepak for his dyspnea. He has been scheduled for respiratory rehabilitation. Signed by: Dr. Rahat Parham 01/05/2023 9:02:45 AM
== END 2023-01-14 23:59 | disposition home or self-care (01) ==
LOC: ONCMED 08:18
PROVIDERS: Visit Provider Radiology Radiation Oncology
DX: C09.8 Malignant neoplasm of overlapping sites of tonsil; F17.210 Nicotine dependence, cigarettes, uncomplicated; R06.00 Dyspnea, unspecified; C77.8 Secondary and unspecified malignant neoplasm of lymph nodes of multiple regions; I89.0 Lymphedema, not elsewhere classified; Z79.899 Other long term (current) drug therapy; Z95.828 Presence of other vascular implants and grafts
CPT/HCPCS: 99214

== ENCOUNTER 2023-01-08 05:19 | Emergency (ER) | payer OTHER, SELFPAY ==
[2023-01-08 05:23] VITALS: BP 110/69; PULSE 118; RESP 24; TEMP 36.7; O2SAT 96; BMI 20.2
[2023-01-08 05:29] VITALS: BP 115/76; RESP 22; O2SAT 95
--- NOTE | 2023-01-08 05:38 | XRR_ITS ---
PROCEDURE INFORMATION: Exam: XR Chest Exam date and time: 01/08/2023 5:47 AM Age: 67 years old Clinical indication: Patient HX: Hemoptysis. History of throat cancer. ; Additional info: Hematemesis TECHNIQUE: Imaging protocol: Radiologic exam of the chest. Views: 1 view. COMPARISON: 1. CT angio chest PE protcl [id number] 12/22/2022 10:10 PM 2. CR (CHEST, ) 12/22/2022 7:58 PM FINDINGS: Lungs: Emphysematous changes noted. Trace consolidation at the left costophrenic angle may be consistent with mild airspace disease, atelectasis or scarring. The remainder of the lung parenchyma is clear. Pleural spaces: No pneumothorax. No pleural effusion. Heart/Mediastinum: The cardiomediastinal silhouette is within normal limits. Bones/joints: Unremarkable. XR/XR chest 1V portable [id number] IMPRESSION: Trace consolidation at the left costophrenic angle may be consistent with mild airspace disease, atelectasis or scarring. The remainder of the lung parenchyma is clear.
[2023-01-08] MEDS: sodium chloride 0.9% 500 ML IV (05:44)
[2023-01-08 05:46] LABS: Basophils % 0.2 %; Eosinophils % 0.2 %; Hematocrit 41.7 % (42.0-52.0); Lymphocytes # 1.4 10^3/uL (0.8-4.8); Lymphocytes % 11.2 %; Mean Corpuscular HGB Conc 31.2 g/dL (30.0-36.0); Mean Corpuscular Hemoglobin 28.4 pg (28.0-34.0); Mean Platelet Volume 9.4 fL (7.4-10.4); Monocytes # 0.5 10^3/uL (0.2-0.9); Monocytes % 3.7 %; Neutrophils # 10.19 10^3/uL (1.8-7.7); Neutrophils % 83.9 %; Nucleated Red Blood Cells % 0 %; Platelet Count 377 10^3/cmm (130-400); Red Blood Count 4.58 10^6/uL (4.1-5.3); Red Cell Distribution Width 15.9 % (12.1-15.1); White Blood Count 12.2 10^3/uL (4.0-10.0)
--- NOTE | 2023-01-08 05:49 | ECG_ITS ---
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 Measurements Intervals [place] Rate: 106 P: 72 LA: 158 QRS: 254 QRSD: 90 T: 59 QT: 308 QTc: 411 Interpretive Statements SINUS TACHYCARDIA POSSIBLE RIGHT VENTRICULAR HYPERTROPHY [SOME/ALL OF: PROMINENT R IN V1, LATE TRANSITION, RAD, TORI, SSS] INFERIOR MYOCARDIAL INFARCTION , OF INDETERMINATE AGE [40+ ms Q WAVE AND/OR ST/T ABNORMALITY IN II/aVF] ANTEROSEPTAL MYOCARDIAL INFARCTION , OF INDETERMINATE AGE [40+ ms Q WAVE IN V1-V4] Compared to ECG 12/22/2022 21:22:39 Sinus rhythm no longer present Sinus arrhythmia no longer present Myocardial infarct finding still present Electronically Signed On 01-08-2023 21:35:35 CDT by Sada Fay M.D. [email or web address]
--- NOTE | 2023-01-08 05:54 | W.ED.GENADLT ---
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 He evidently has some residual swelling after radiation therapy to his left neck. He presents with some shortness of breath, and mainly hemoptysis. He notes that the blood is bright red in nature. He denies any fever. He was seen recently and placed on steroids and antibiotics he says, which helped considerably. Swelling recurred to some degree and he saw his primary physician, who placed him on steroids only, which did not help as much. Associated symptoms: Reports dyspnea and rash; Deny chest pain, palpitations or vomiting Review of Systems Const: Denies: fever(s) or chills Eyes: Denies: change in vision ENMT: Reports: throat pain; Denies: mouth pain, swelling of lips/tongue, bleeding gums, nasal discharge or nasal congestion Card: Denies: chest pain or palpitations Resp: Reports: dyspnea, productive cough and hemoptysis GI: Denies: abdominal pain or vomiting Skin/Breast: Reports: rash PFSH ED PFSH: Medical History COPD (chronic obstructive pulmonary disease) Coronary artery disease Deep vein thrombosis (DVT) of axillary vein of right upper extremity Diabetes mellitus Elevated PSA Variable levels when checked over time, high and low, has seen Dr Lincoln, not evaluating further at this time as noted per Urology clinic notes Gross hematuria Hyperlipidemia Hypertension GIDEON (obstructive sleep apnea) Presence of other vascular implants and grafts PowerPort left subclavian Dr. Mead 03/07/2022 Squamous cell carcinoma of right tonsil Treated with cisplatin (last dose 05/09/22) and radiation (last treatment 05/24/22); Follows with Dr Justice. Stroke Tachycardia-bradycardia Uses feeding tube Surgical History History of heart artery stent 1996 History of percutaneous endoscopic gastrostomy With subsequent removal due to leakage and perforation History of surgery on arm History of surgery on lower extremity Family History Mother Cancer lung Father Stroke Sister Cancer lung Other Bleeding disorder Clotting disorder Diabetes Hyperlipidemia Social History Smoking and tobacco status: current every day smoker cigarettes Packs smoked per day: 1.5 Alcohol intake: never Substance/Drug Use: never Lives independently: Yes Household members: family Marital status: Current occupational status: retired Physical Exam Const: GENERAL APPEARANCE: cooperative and frail appearing (mildly); not ill appearing HENMT: COMMON NORMALS: normocephalic, atraumatic and Normal external nose present HEAD & SCALP: normocephalic and atraumatic NOSE: Normal external nose present and Normal nares present MOUTH: Normal oral and palatal mucosa present THROAT: other (clots present.) Eye: COMMON NORMALS: Equal, round and reactive pupils present and EOMs intact bilaterally PUPIL: Yes Equal, round and reactive pupils present Neck/C-Spine: OTHER: submandibular/anterior neck swelling/mass present. tender. Chest: CHEST: Yes Symmetrical chest wall rise Resp: COMMON NORMALS: normal respiratory effort and clear to auscultation bilaterally AUSCULTATION: clear to auscultation bilaterally Cardio: COMMON NORMALS: regular rate and regular rhythm RATE: regular rate RHYTHM: regular rhythm GI: COMMON NORMALS: Normal to inspection, nondistended, normoactive bowel sounds present Course Vital Signs: Vital signs: Vital Signs Temperature 98.0 F 01/08/23 05:23 Pulse Rate 110 H 01/08/23 06:55 Respiratory Rate 18 01/08/23 06:55 Blood Pressure 104/66 01/08/23 06:55 Pulse Oximetry 95 01/08/23 06:55 Oxygen Delivery Me thod Room Air 01/08/23 05:29 [facility] - General Adult Medical Decision Making Cough, shortness of breath, and hemoptysis in a patient with a previous history of squamous cell tonsillar cancer, now with diagnosed lymphedema of his neck. He is coughing up bright red blood with clots in the room. He is mildly tachycardic. Blood pressure is normal. Hemoglobin is 13. Platelet count is normal. Lab Data 01/08/23 05:30 01/08/23 05:30 Radiology Impressions Chest X-Ray 01/08/23 05:38 IMPRESSION: Trace consolidation at the left costophrenic angle may be consistent with mild airspace disease, atelectasis or scarring. The remainder of the lung parenchyma is clear. Laboratory Results WBC 12.2 10^3/uL (4.0-10.0) H 01/08/23 05:30 RBC 4.58 10^6/uL (4.1-5.3) 01/08/23 05:30 Hgb 13.0 g/dL (11.7-16.6) 01/08/23 05:30 Hct 41.7 % (42.0-52.0) L 01/08/23 05:30 MCV 91.0 fl (80-94) 01/08/23 05:30 MCH 28.4 pg (28.0-34.0) 01/08/23 05:30 MCHC 31.2 g/dL (30.0-36.0) 01/08/23 05:30 RDW 15.9 % (12.1-15.1) H 01/08/23 05:30 Plt Count 377 10^3/cmm (130-400) 01/08/23 05:30 MPV 9.4 fL (7.4-10.4) 01/08/23 05:30 Neut % (Auto) 83.9 % 01/08/23 05:30 Lymph % (Auto) 11.2 % 01/08/23 05:30 Haakon % (Auto) 3.7 % 01/08/23 05:30 Eos % (Auto) 0.2 % 01/08/23 05:30 Baso % (Auto) 0.2 % 01/08/23 05:30 Neut # (Auto) 10.19 10^3/uL (1.8-7.7) H 01/08/23 05:30 Lymph # (Auto) 1.4 10^3/uL (0.8-4.8) 01/08/23 05:30 Haakon # (Auto) 0.5 10^3/uL (0.2-0.9) 01/08/23 05:30 Eos # (Auto) 0.0 10^3/uL (0.0-0.8) 01/08/23 05:30 Baso # (Auto) 0.0 10^3/uL (0.0-0.1) 01/08/23 05:30 Nucleated RBC % (auto) 0 % 01/08/23 05:30 Nucleated RBCs # 0.0 /100WBC 01/08/23 05:30 PT 11.80 SECONDS (12.1-14.9) L 01/08/23 05:30 INR 0.84 (0.8-1.2) 01/08/23 05:30 APTT 26.6 SECONDS (23.9-36.7) 01/08/23 05:30 Sodium 136 mmol/L (136-145) 01/08/23 05:30 Potassium 4.5 mmol/L (3.5-5.1) 01/08/23 05:30 Chloride 90 mmol/L (98-107) L 01/08/23 05:30 Carbon Dioxide 34 mmol/L (22-29) H 01/08/23 05:30 Anion Gap 16.5 (5-19) 01/08/23 05:30 BUN 31 mg/dL (8-23) H 01/08/23 05:30 Creatinine 0.5 mg/dL (0.7-1.2) L 01/08/23 05:30 GFR Calculation 166.4 mL/min (90-130) H 01/08/23 05:30 Glucose 108 mg/dL (65-115) 01/08/23 05:30 Calculated Osmolality 289 mOsm/kg (285-295) 01/08/23 05:30 Calcium 10.0 mg/dL (8.5-10.5) 01/08/23 05:30 Total Bilirubin 0.2 mg/dL (0.15-1.2) 01/08/23 05:30 AST 29 U/L (0-40) 01/08/23 05:30 ALT 29 U/L (0-41) 01/08/23 05:30 Alkaline Phosphatase 124 U/L (40-130) 01/08/23 05:30 C-Reactive Protein 5.4 mg/L (0.0-4.9) H 01/08/23 05:30 Total Protein 7.7 g/dL (6.6-8.7) 01/08/23 05:30 Albumin 3.9 g/dL (3.5-5.2) 01/08/23 05:30 Globulin 3.8 g/dL (1.3-4.6) 01/08/23 05:30 Blood Type B Positive 01/08/23 05:55 Rho(D) Type Positive 01/08/23 05:55 Antibody Screen Negative 01/08/23 05:55 Discharge Plan Discharge Patient Disposition: Home Clinical Impression: Squamous cell carcinoma of right tonsil, Lymphedema, Hemoptysis Condition: Stable Prescriptions: No Action Breztri Aerosphere 160-9-4.8 mcg/actuation HFA aerosol inhaler 2 inh inhalation BID oxycodone 5 mg/5 mL solution 5 mg PO Q6H PRN (Reason: pain) 5 Days Qty: 200 0RF Rx Instructions: 5 mL or 1 teaspoon through PEG tube every 6 hours as needed severe pain. (DME) Afflovest See Rx Instructions .Route .MEDSUPPLY Qty: 1 0RF Rx Instructions: As directed guaifenesin [Mucinex Fast-Max Chest-Congest] 100 mg/5 mL liquid 200 mg PO Q4H PRN (Reason: cough) Qty: 473 6RF levofloxacin 500 mg tablet 500 mg PO DAILY ondansetron HCl 4 mg tablet 4 mg PO Q6H PRN (Reason: nausea and vomiting) 30 Days Qty: 90 0RF methylprednisolone [Medrol (Mathieu)] 4 mg tablets,dose pack 4 mg PO DAILY Qty: 21 0RF albuterol sulfate 90 mcg/actuation HFA aerosol inhaler 2 inh INHALATION Q4H PRN (Reason: shortness of breath or wheezing) Qty: 18 0RF acetaminophen 500 mg Tablet 1,000 mg PO BID PRN (Reason: Pain) albuterol sulfate 2.5 mg /3 mL (0.083 %) Solution For Nebulization 2.5 mg INHALATION Q6H PRN (Reason: Shortness Of Breath) aspirin 81 mg Tablet,Delayed Release (Dr/Ec) 81 mg PO QAM cholecalciferol (vitamin D3) [Vitamin D3] 25 mcg (1,000 unit) Tablet 25 mcg PO QPM rosuvastatin [Crestor] 20 mg Tablet 10 mg PO QAM polyethylene glycol 3350 [Miralax] 17 gram Powder In Packet 17 g PO DAILY PRN (Reason: Constipation) TwoCal HN Liquid See Rx Instructions .ROUTE .COMPLEX Rx Instructions: 8oz po four times a day as directed nystatin 100,000 unit/mL suspension See Rx Instructions .ROUTE .COMPLEX Rx Instructions: swish and swallow 5ml three times a day as needed digoxin 125 mcg (0.125 mg) tablet 62.5 mcg PO QAM Centrum 0.4-162-18 mg Tablet 1 tab feeding tube DAILY Discharge Orders: Discharge ED (Routine); Ordered 01/08/23 Ordered By: Roberto Mccauley Referrals: Katrina Gaytan MD [Primary Care Provider] - Discharge Diet: Usual diet Discharge Activity: Increase activity as tolerated Patient Instructions: Opioid Safety, Pain Management Activity Restrictions/Additional Instructions: You are seen today in the emergency room for hemoptysis (coughing up blood). This is likely related to your known diagnosis of squamous cell CA of the tonsil. Would recommend that you follow-up with Dr. Rosen later today. If you have recurrent or worsening problems return to the emergency room. Sign Out Sign Out Data: Patient Sign Out occurred on 01/08/23 at 06:28. Patient's care was discussed, and care was transferred from to Roberto Mccauley DO. Coding Level of Care Code ED Procedures Analyst for Chg Fwd Documented by User: Roberto Mccauley DO 01/08/23 06:49 HPI - General Adult General: Chief complaint: General Medical Stated complaint: Coughing Up blood Time Seen by Provider: 01/08/23 05:38 [facility] ED PFSH: Medical History COPD (chronic obstructive pulmonary disease) Coronary artery disease Deep vein thrombosis (DVT) of axillary vein of right upper extremity Diabetes mellitus Elevated PSA Variable levels when checked over time, high and low, has seen Dr Lincoln, not evaluating further at this time as noted per Urology clinic notes Gross hematuria Hyperlipidemia Hypertension GIDEON (obstructive sleep apnea) Presence of other vascular implants and grafts PowerPort left subclavian Dr. Mead 03/07/2022 Squamous cell carcinoma of right tonsil Treated with cisplatin (last dose 05/09/22) and radiation (last treatment 05/24/22); Follows with Dr Justice. Stroke Tachycardia-bradycardia Uses feeding tube Surgical History History of heart artery stent 1996 History of percutaneous endoscopic gastrostomy With subsequent removal due to leakage and perforation History of surgery on arm History of surgery on lower extremity Family History Mother Cancer lung Father Stroke Sister Cancer lung Other Bleeding disorder Clotting disorder Diabetes Hyperlipidemia Social History Smoking and tobacco status: current every day smoker cigarettes Packs smoked per day: 1.5 Alcohol intake: never Substance/Drug Use: never Lives independently: Yes Household members: family Marital status: Current occupational status: retired Course Vital Signs: Vital signs: Vital Signs Temperature 98.0 F 01/08/23 05:23 Pulse Rate 110 H 01/08/23 06:55 Respiratory Rate 18 01/08/23 06:55 Blood Pressure 104/66 01/08/23 06:55 Pulse Oximetry 95 01/08/23 06:55 Oxygen Delivery Me thod Room Air 01/08/23 05:29 [facility] - General Adult Medical Decision Making Cough, shortness of breath, and hemoptysis in a patient with a previous history of squamous cell tonsillar cancer, now with diagnosed lymphedema of his neck. He is coughing up bright red blood with clots in the room. He is mildly tachycardic. Blood pressure is normal. Hemoglobin is 13. Platelet count is normal. Care assumed at change of shift. Reviewed the chart. Patient was prescribed Levaquin on 710 he is completed the course of that. He also tells me in that same timeframe he was started on steroids. There is a prescription for a methylprednisolone steroid pack from Dr. Parham on 714. Complete the course of steroids. Do not recommend another round of antibiotics at this point. Patient has been on multiple antibiotics would be concerned about C. difficile if he were to continue. He has not had any further hemoptysis since arriving here. He is anxious to go home. His BUN is slightly elevated. He is frequently tachycardic but he is not hypoxic. At this point he just wants to be discharged we had offered to give him more fluids he declined. I asked him to contact Dr. Rosen's office later this morning and follow-up with him today. Return to the radiotherapy if he develops worsening hemoptysis. Medical Records I reviewed the patient's medical records. Lab Data I reviewed the patient's lab results. 01/08/23 05:30 01/08/23 05:30 Radiology Impressions Chest X-Ray 01/08/23 05:38 IMPRESSION: Trace consolidation at the left costophrenic angle may be consistent with mild airspace disease, atelectasis or scarring. The remainder of the lung parenchyma is clear. Laboratory Results WBC 12.2 10^3/uL (4.0-10.0) H 01/08/23 05:30 RBC 4.58 10^6/uL (4.1-5.3) 01/08/23 05:30 Hgb 13.0 g/dL (11.7-16.6) 01/08/23 05:30 Hct 41.7 % (42.0-52.0) L 01/08/23 05:30 MCV 91.0 fl (80-94) 01/08/23 05:30 MCH 28.4 pg (28.0-34.0) 01/08/23 05:30 MCHC 31.2 g/dL (30.0-36.0) 01/08/23 05:30 RDW 15.9 % (12.1-15.1) H 01/08/23 05:30 Plt Count 377 10^3/cmm (130-400) 01/08/23 05:30 MPV 9.4 fL (7.4-10.4) 01/08/23 05:30 Neut % (Auto) 83.9 % 01/08/23 05:30 Lymph % (Auto) 11.2 % 01/08/23 05:30 Haakon % (Auto) 3.7 % 01/08/23 05:30 Eos % (Auto) 0.2 % 01/08/23 05:30 Baso % (Auto) 0.2 % 01/08/23 05:30 Neut # (Auto) 10.19 10^3/uL (1.8-7.7) H 01/08/23 05:30 Lymph # (Auto) 1.4 10^3/uL (0.8-4.8) 01/08/23 05:30 Haakon # (Auto) 0.5 10^3/uL (0.2-0.9) 01/08/23 05:30 Eos # (Auto) 0.0 10^3/uL (0.0-0.8) 01/08/23 05:30 Baso # (Auto) 0.0 10^3/uL (0.0-0.1) 01/08/23 05:30 Nucleated RBC % (auto) 0 % 01/08/23 05:30 Nucleated RBCs # 0.0 /100WBC 01/08/23 05:30 PT 11.80 SECONDS (12.1-14.9) L 01/08/23 05:30 INR 0.84 (0.8-1.2) 01/08/23 05:30 APTT 26.6 SECONDS (23.9-36.7) 01/08/23 05:30 Sodium 136 mmol/L (136-145) 01/08/23 05:30 Potassium 4.5 mmol/L (3.5-5.1) 01/08/23 05:30 Chloride 90 mmol/L (98-107) L 01/08/23 05:30 Carbon Dioxide 34 mmol/L (22-29) H 01/08/23 05:30 Anion Gap 16.5 (5-19) 01/08/23 05:30 BUN 31 mg/dL (8-23) H 01/08/23 05:30 Creatinine 0.5 mg/dL (0.7-1.2) L 01/08/23 05:30 GFR Calculation 166.4 mL/min (90-130) H 01/08/23 05:30 Glucose 108 mg/dL (65-115) 01/08/23 05:30 Calculated Osmolality 289 mOsm/kg (285-295) 01/08/23 05:30 Calcium 10.0 mg/dL (8.5-10.5) 01/08/23 05:30 Total Bilirubin 0.2 mg/dL (0.15-1.2) 01/08/23 05:30 AST 29 U/L (0-40) 01/08/23 05:30 ALT 29 U/L (0-41) 01/08/23 05:30 Alkaline Phosphatase 124 U/L (40-130) 01/08/23 05:30 C-Reactive Protein 5.4 mg/L (0.0-4.9) H 01/08/23 05:30 Total Protein 7.7 g/dL (6.6-8.7) 01/08/23 05:30 Albumin 3.9 g/dL (3.5-5.2) 01/08/23 05:30 Globulin 3.8 g/dL (1.3-4.6) 01/08/23 05:30 Blood Type B Positive 01/08/23 05:55 Rho(D) Type Positive 01/08/23 05:55 Antibody Screen Negative 01/08/23 05:55 Discharge Plan Discharge Patient Disposition: Home Clinical Impression: Squamous cell carcinoma of right tonsil, Lymphedema, Hemoptysis Condition: Stable Prescriptions: No Action Breztri Aerosphere 160-9-4.8 mcg/actuation HFA aerosol inhaler 2 inh inhalation BID oxycodone 5 mg/5 mL solution 5 mg PO Q6H PRN (Reason: pain) 5 Days Qty: 200 0RF Rx Instructions: 5 mL or 1 teaspoon through PEG tube every 6 hours as needed severe pain. (DME) Afflovest See Rx Instructions .Route .MEDSUPPLY Qty: 1 0RF Rx Instructions: As directed guaifenesin [Mucinex Fast-Max Chest-Congest] 100 mg/5 mL liquid 200 mg PO Q4H PRN (Reason: cough) Qty: 473 6RF levofloxacin 500 mg tablet 500 mg PO DAILY ondansetron HCl 4 mg tablet 4 mg PO Q6H PRN (Reason: nausea and vomiting) 30 Days Qty: 90 0RF methylprednisolone [Medrol (Mathieu)] 4 mg tablets,dose pack 4 mg PO DAILY Qty: 21 0RF albuterol sulfate 90 mcg/actuation HFA aerosol inhaler 2 inh INHALATION Q4H PRN (Reason: shortness of breath or wheezing) Qty: 18 0RF acetaminophen 500 mg Tablet 1,000 mg PO BID PRN (Reason: Pain) albuterol sulfate 2.5 mg /3 mL (0.083 %) Solution For Nebulization 2.5 mg INHALATION Q6H PRN (Reason: Shortness Of Breath) aspirin 81 mg Tablet,Delayed Release (Dr/Ec) 81 mg PO QAM cholecalciferol (vitamin D3) [Vitamin D3] 25 mcg (1,000 unit) Tablet 25 mcg PO QPM rosuvastatin [Crestor] 20 mg Tablet 10 mg PO QAM polyethylene glycol 3350 [Miralax] 17 gram Powder In Packet 17 g PO DAILY PRN (Reason: Constipation) TwoCal HN Liquid See Rx Instructions .ROUTE .COMPLEX Rx Instructions: 8oz po four times a day as directed nystatin 100,000 unit/mL suspension See Rx Instructions .ROUTE .COMPLEX Rx Instructions: swish and swallow 5ml three times a day as needed digoxin 125 mcg (0.125 mg) tablet 62.5 mcg PO QAM Centrum 0.4-162-18 mg Tablet 1 tab feeding tube DAILY Discharge Orders: Discharge ED (Routine); Ordered 01/08/23 Ordered By: Roberto Mccauley Referrals: Katrina Gaytan MD [Primary Care Provider] - Discharge Diet: Usual diet Discharge Activity: Increase activity as tolerated Patient Instructions: Opioid Safety, Pain Management Activity Restrictions/Additional Instructions: You are seen today in the emergency room for hemoptysis (coughing up blood). This is likely related to your known diagnosis of squamous cell CA of the tonsil. Would recommend that you follow-up with Dr. Rosen later today. If you have recurrent or worsening problems return to the emergency room. Sign Out Sign Out Data: Patient Sign Out occurred on 01/08/23 at 06:28. Patient's care was discussed, and care was transferred from to Roberto Mccauley DO. Coding Level of Care Code ED Procedures Analyst for Bernice Day
[2023-01-08 06:01] LABS: INR 0.84 (0.8-1.2); Partial Thromboplastin Time 26.6 SECONDS (23.9-36.7)
[2023-01-08 06:11] LABS: Alanine Aminotransferase 29 U/L (0-41); Albumin Level 3.9 g/dL (3.5-5.2); Alkaline Phosphatase 124 U/L (40-130); Blood Urea Nitrogen 31 mg/dL (8-23); C Reactive Protein 5.4 mg/L (0.0-4.9); Carbon Dioxide 34 mmol/L (22-29); Chloride 90 mmol/L (98-107); Globulin 3.8 g/dL (1.3-4.6); Glomerular Filtration Rate 166.4 mL/min (90-130); Glucose 108 mg/dL (65-115); Osmolality Calculated 289 mOsm/kg (285-295); Sodium 136 mmol/L (136-145); Total Bilirubin 0.2 mg/dL (0.15-1.2); Total Protein 7.7 g/dL (6.6-8.7)
[2023-01-08 06:18] LABS: Anion Gap 16.5 (5-19); Aspartate Amino Transferase 29 U/L (0-40); Potassium 4.5 mmol/L (3.5-5.1)
[2023-01-08 06:53] VITALS: BP 104/66; PULSE 110; RESP 18; O2SAT 95
[2023-01-08 06:55] VITALS: BP 104/66; PULSE 110; RESP 18; O2SAT 95
== END 2023-01-08 06:57 | disposition home or self-care (01) ==
PROVIDERS: Emergency Medicine; Emergency Provider Family Medicine; PCP Family Medicine
DX: C09.9 Malignant neoplasm of tonsil, unspecified (principal); R04.2 Hemoptysis; I89.0 Lymphedema, not elsewhere classified; Z79.82 Long term (current) use of aspirin; F17.210 Nicotine dependence, cigarettes, uncomplicated; J44.9 Chronic obstructive pulmonary disease, unspecified; I25.10 Atherosclerotic heart disease of native coronary artery without angina pectoris; E11.9 Type 2 diabetes mellitus without complications; E78.5 Hyperlipidemia, unspecified; I10 Essential (primary) hypertension; Z86.73 Personal history of transient ischemic attack (TIA), and cerebral infarction without residual deficits
CPT/HCPCS: 31575; 36415; 71045; 80053; 85025; 85610; 85730; 86140; 86850; 86900; 93005; 96360; 99214; 99284; 99285; J7040

== ENCOUNTER 2023-01-12 07:35 | Outpatient (RCR) | payer OTHER, MEDICARE, MEDICAID, SELFPAY | END 2023-01-14 23:59 | disposition home or self-care (01) | LOC: SPT 07:35 | PROVIDERS: PCP Family Medicine; Visit Provider Family Medicine | DX: I89.0 Lymphedema, not elsewhere classified (principal) | CPT/HCPCS: 97161 ==

== ENCOUNTER 2023-01-13 08:06 | Emergency (ER) | payer OTHER, SELFPAY ==
[2023-01-13] VITALS (55 sets, daily range): BP systolic 73–112; BP diastolic 47–86; PULSE 99–146; RESP 14–32; O2SAT 94–100
--- NOTE | 2023-01-13 08:10 | ED_ITS ---
HPI - Altered Mental Status General: Chief Complaint: Altered Mental Status Stated Complaint: AMS Time Seen by Provider: 01/13/23 08:10 Limitations: altered mental status and physical limitation (Intubated) History of Present Illness: Mr. Siegel is a 67-year-old gentleman with complex past medical history including diabetes, history of oropharyngeal squamous cell cancer, CAD, G-tube presenting to the emergency department for altered mental status with respiratory failure. He was last known normal last night when he went to bed. Found this morning by family confused. Upon EMS arrival patient had oxygen saturations in the 80s. He did have purposeful movements and nonfocal exam per their report. Patient was intubated. Upon arrival patient is intubated and sedated with no meaningful history provided. Supplemental information provided by the patient's is that he was more or less normal yesterday evening. He often does not wear his home oxygen. He was feeling unwell around midnight. With regards to his history of cancer he completed chemotherapy and radiation in April. Per chart review he has had multiple ER visits including ER visits for hemoptysis and respiratory symptoms. With regards to abnormal CT findings he has not reported increased abdominal pain. Perhaps at the start of this month she did notice that the tubes seem to be out more than normal and intermittently leaks though does not have pain or difficulty flushing. Review of Systems General: Reports: ROS unobtainable due to endotracheal tube and ROS unobtainable due to mental status [facility] ED PFSH: Medical History COPD (chronic obstructive pulmonary disease) Coronary artery disease Deep vein thrombosis (DVT) of axillary vein of right upper extremity Diabetes mellitus Elevated PSA Variable levels when checked over time, high and low, has seen Dr Lincoln, not evaluating further at this time as noted per Urology clinic notes Gross hematuria Hyperlipidemia Hypertension GIDEON (obstructive sleep apnea) Presence of other vascular implants and grafts PowerPort left subclavian Dr. Mead 03/07/2022 Squamous cell carcinoma of right tonsil Treated with cisplatin (last dose 05/09/22) and radiation (last treatment 05/24/22); Follows with Dr Justice. Stroke Tachycardia-bradycardia Uses feeding tube Surgical History History of heart artery stent 1996 History of percutaneous endoscopic gastrostomy With subsequent removal due to leakage and perforation History of surgery on arm History of surgery on lower extremity Family History Mother Cancer lung Father Stroke Sister Cancer lung Other Bleeding disorder Clotting disorder Diabetes Hyperlipidemia Social History Smoking and tobacco status: current every day smoker cigarettes Packs smoked per day: 1.5 Alcohol intake: never Substance/Drug Use: never Lives independently: Yes Household members: family Marital status: Current occupational status: retired Physical Exam Const: GENERAL APPEARANCE: ill appearing and frail appearing HENMT: COMMON NORMALS: normocephalic and atraumatic HEAD & SCALP: normocephalic and atraumatic Eye: COMMON NORMALS: conjunctivae normal CONJUNCTIVA: Yes conjunctivae normal SCLERA: sclerae normal Neck/C-Spine: COMMON NORMALS: supple GENERAL: Yes trachea midline OTHER: Anterior neck swelling, reported chronic Resp: OTHER: Mechanically ventilated with essentially absent lung sounds on the left. Cardio: COMMON NORMALS: regular rhythm RATE: tachycardic RHYTHM: regular rhythm GI: COMMON NORMALS: Soft to palpation PALPATION: Yes Soft to palpation and No Tenderness to palpation present (GI) Extremity: GENERAL: Yes normal exam except as noted and No edema Neuro: COMMON NORMALS: moves all extremities SENSORIUM/ORIENTATION: Yes Orientation impaired and Yes obtunded Procedures Central Line Placement Left Femoral: Time Out Performed: Yes Patient Placed on Monitor/Pulse Ox: Yes MD Prep: mask, gown and gloves Central Line Prep: Povidone-Iodine 1% and sterile drapes applied Local Anesthetic: lidocaine 1% Amount of anesthesia used (mL): 3 Ultrasound Used for Placement: Yes Central Line Lumen Inserted: triple Post Procedure: sutured in place, good blood return, all ports aspirated, flushed, capped and sterile dressing applied Patient Tolerated Procedure: well and no complications Course Vital Signs: Vital signs: Vital Signs Pulse Rate 111 H 01/13/23 13:02 Respiratory Rate 21 H 01/13/23 12:35 Blood Pressure 91/62 01/13/23 13:02 Pulse Oximetry 97 01/13/23 13:02 Oxygen Delivery Me thod Mechanical Ventil ation 01/13/23 08:07 Fraction of Inspir ed Oxygen 40 01/13/23 11:34 MDM - Altered Mental Status Medical Decision Making 67-year-old gentleman presenting with altered mental status and respiratory failure intubated by EMS. On initial arrival patient is quite ill-appearing with tachycardia and hypotension. Given absent lung sounds on left initially ET tube retracted however bedside review of chest x-ray shows position have been satisfactory and tube was advanced again. Some improvement with deep suctioning likely representing mucous plugging as explanation for absent left lung sounds. EKG demonstrates sinus tachycardia with left axis deviation and nonspecific ST segment abnormalities, no STEMI. Labs with no leukocytosis, normocytic anemia significantly worse than proximately 5 days ago without active hemorrhage noted on head to toe exam. Coags normal. Metabolic panel with hypokalemia. Transaminitis present. NSTEMI noted on serial troponin. BNP is slightly elevated. Urinalysis with hematuria of uncertain etiology, may be secondary to cath placement. Toxic ingestions and UDS are negative. COVID-negative. Head CT with no apparent acute abnormality to explain change. CT neck appears similar to prior. CT chest abdomen pelvis with bilateral pneumonia and occlusive filling defect in the left mainstem bronchus likely secondary to mucous plugging given clinical history. Gastrostomy tube appears malpositioned which may correlate with increased leaking however I do not appreciate cellulitic changes or peritonitis. No evidence of intra-abdominal free air. During ED course patient treated with analgesia, sedation, broad-spectrum antibiotics, fluids which including prehospital administered fluids accounts for 30 cc/kg. Patient continued to be hypotensive and vasopressors after adequate fluid resuscitation for administered. Central in place without complication given need for additional access due to multiple drips and limited peripheral IV access. Given neck mass and clinical history internal jugular not adequate ideal for placement and therefore femoral line was placed. Patient has acute respiratory failure with postobstructive pneumonia and sepsis as well as NSTEMI and other evidence of systemic stress including transaminitis. We do not have pulmonology on-call to perform bronchoscopy. Case was reviewed with hospitalist and patient requires transfer for critical care/pulmonology and higher level of care. Patient is critically ill and requires the quickest means of transfer necessary and therefore was transferred by [facility] after being accepted by critical care at [facility] in [place]. Throughout ED course I updated the patient's at bedside. She was agreeable to interventions and transfer. I discussed guarded prognosis. Patient left ED in critical condition. Medical Records I reviewed the patient's medical records. Lab Data I reviewed the patient's lab results. 01/13/23 08:26 01/13/23 08:26 Radiology Impressions Chest X-Ray 01/13/23 08:10 IMPRESSION: 1. High position of endotracheal tube with distal tip above the clavicles and 10 cm above the bladimir. Advancement is recommended. 2. Left basilar atelectasis. Pneumonia should be excluded clinically. Chest/Abdomen/Pelvis CT 01/13/23 08:23 IMPRESSION: 1. Findings concerning for pneumonia worse on the left versus the right. 2. Occlusive filling defects in the left mainstem bronchus extending into the proximal segmental bronchi of the upper and lower lobes. 3. Emphysematous disease. IMPRESSION: 1. Percutaneous gastrostomy tube malpositioned with the retention bulb outside the abdominal cavity in the superficial soft tissues with minimal surrounding subcutaneous emphysema. 2. Questionable layering small stones versus sludge in the gallbladder lumen. No signs of acute cholecystitis. Head CT 01/13/23 08:23 IMPRESSION: No acute intracranial abnormality. Neck CT 01/13/23 08:23 IMPRESSION: 1. Similar edematous changes in the larynx/pharynx. 2. New mild peribronchial thickening and tree-in-bud airspace opacities scattered throughout the left lung, consistent with infectious process. 3. Fluid seen within the distal trachea and main bronchi bilaterally. Laboratory Results WBC 8.8 10^3/uL (4.0-10.0) 01/13/23 08: RBC 3.14 10^6/uL (4.1-5.3) L 01/13/23 08:26 Hgb 8.9 g/dL (11.7-16.6) L 01/13/23 08:26 Hct 29.1 % (42.0-52.0) L 01/13/23 08:26 MCV 92.7 fl (80-94) 01/13/23 08:26 MCH 28.3 pg (28.0-34.0) 01/13/23 08: MCHC 30.6 g/dL (30.0-36.0) 01/13/23 08: RDW 15.9 % (12.1-15.1) H 01/13/23 08:26 Plt Count 281 10^3/cmm (130-400) 01/13/23 08: MPV 9.4 fL (7.4-10.4) 01/13/23 08:26 Neut % (Auto) 85.7 % 01/13/23 08:26 Lymph % (Auto) 4.5 % 01/13/23 08: Arthur % (Auto) 8.7 % 01/13/23 08:26 Eos % (Auto) 0.0 % 01/13/23 08:26 Baso % (Auto) 0.1 % 01/13/23 08:26 Neut # (Auto) 7.56 10^3/uL (1.8-7.7) 01/13/23 08: Lymph # (Auto) 0.4 10^3/uL (0.8-4.8) L 01/13/23 08:26 Arthur # (Auto) 0.8 10^3/uL (0.2-0.9) 01/13/23 08: Eos # (Auto) 0.0 10^3/uL (0.0-0.8) 01/13/23 08:26 Baso # (Auto) 0.0 10^3/uL (0.0-0.1) 01/13/23 08: Nucleated RBC % (auto) 0.2 % 01/13/23 08: Nucleated RBCs # 0.0 /100WBC 01/13/23 08:26 PT 14.00 SECONDS (12.1-14.9) 01/13/23 08: INR 1.05 (0.8-1.2) 01/13/23 08: APTT 27.8 SECONDS (23.9-36.7) 01/13/23 08:26 Specimen Type Arterial 01/13/23 08:07 Sample Site Radial, left 01/13/23 08:07 ABG pH 7.51 (7.35-7.45) H 01/13/23 08:07 ABG pCO2 40.6 mmHg (35-45) 01/13/23 08:07 ABG pO2 209.0 mmHg (80.0-100.0) H 01/13/23 08:07 ABG HCO3 32.3 mmol/L (22-26) H 01/13/23 08:07 ABG Base Excess 8.5 mmol/L (-2.0-2.0) H 01/13/23 08:07 Roge Test Pos 01/13/23 08:07 Hematocrit 31.2 % (42-52) L 01/13/23 08:07 O2 Delivery Device Vent 01/13/23 08:07 FiO2 100.0 % 01/13/23 08:07 Tidal Volume 0.50 01/13/23 08:07 PEEP 6.0 cmH20 01/13/23 08:07 Prorate Clerk ID Cak 01/13/23 08:07 Sodium 138 mmol/L (136-145) 01/13/23 08:26 Potassium 5.2 mmol/L (3.5-5.1) H 01/13/23 08:26 Chloride 99 mmol/L (98-107) 01/13/23 08:26 Carbon Dioxide 30 mmol/L (22-29) H 01/13/23 08:26 Anion Gap 14.2 (5-19) 01/13/23 08:26 BUN 43 mg/dL (8-23) H 01/13/23 08:26 Creatinine 0.6 mg/dL (0.7-1.2) L 01/13/23 08:26 GFR Calculation 134.8 mL/min (90-130) H 01/13/23 08:26 Glucose 147 mg/dL (65-115) H 01/13/23 08:26 Calculated Osmolality 300 mOsm/kg (285-295) H 01/13/23 08:26 Lactic Acid 1.3 mmol/L (0.5-2.2) 01/13/23 08:26 Calcium 8.1 mg/dL (8.5-10.5) L 01/13/23 08:26 Magnesium 1.8 mg/dL (1.7-2.3) 01/13/23 08:26 Total Bilirubin 0.3 mg/dL (0.15-1.2) 01/13/23 08:26 AST 62 U/L (0-40) H 01/13/23 08:26 ALT 71 U/L (0-41) H 01/13/23 08:26 Alkaline Phosphatase 151 U/L (40-130) H 01/13/23 08:26 Creatine Kinase 27 U/L (39-308) L 01/13/23 08:26 Troponin T Baseline 132 ng/L (0-15) H* 01/13/23 08:26 Troponin T 120 Minute 145.6 ng/L (0-15) H 01/13/23 11:02 Delta Troponin T 13.6 ABS# (0-10) H* 01/13/23 11:02 NT-Pro-B Natriuret Pep 2515 pg/mL (0-125) H 01/13/23 08:26 Total Protein 4.5 g/dL (6.6-8.7) L 01/13/23 08:26 Albumin 2.4 g/dL (3.5-5.2) L 01/13/23 08:26 Globulin 2.1 g/dL (1.3-4.6) 01/13/23 08:26 TSH 2.09 uIU/mL (0.27-4.20) 01/13/23 08:26 Urine Color Dark yellow (Yellow) 01/13/23 09:42 Urine Appearance Hazy (CLEAR) A 01/13/23 09:42 Urine pH 5 (5-7) 01/13/23 09:42 Ur Specific [place] 1.005 (1.005-1.030) 01/13/23 09:42 Urine Protein 2+ (Negative) H 01/13/23 09:42 Urine Glucose (UA) Norm (Normal) 01/13/23 09:42 Urine Ketones Negative (Negative) 01/13/23 09:42 Urine Blood 3+ (Negative) H 01/13/23 09:42 Urine Nitrate Negative (Negative) 01/13/23 09:42 Urine Bilirubin Neg (Negative) 01/13/23 09:42 Urine Urobilinogen Norm mg/dL (Negative) 01/13/23 09:42 Ur Leukocyte Esterase Trace (Negative) H 01/13/23 09:42 Urine RBC >100 /hpf (0-2) H 01/13/23 09:42 Urine WBC 0-4 /hpf (0-5) H 01/13/23 09:42 Ur Squamous Epith Cells None /hpf (0-5) 01/13/23 09:42 Amorphous Sediment Not Reportable 01/13/23 09:42 Urine Bacteria Trace /hpf (NONE) 01/13/23 09:42 Hyaline Casts 0-4 /lpf H 01/13/23 09:42 Digoxin 0.6 ng/mL (0.6-1.2) 01/13/23 08:26 Salicylates < 0.3 mg/dL (3-10) L 01/13/23 08:26 Urine Opiates Screen Negative ng/mL (Negative) 01/13/23 09:42 Acetaminophen < 5.0 ug/mL (10-30) L 01/13/23 08:26 Ur Barbiturates Screen Negative ng/mL (Negative) 01/13/23 09:42 Ur Phencyclidine Scrn Negative ng/mL (Negative) 01/13/23 09:42 Ur Amphetamines Screen Negative ng/mL (Negative) 01/13/23 09:42 U Benzodiazepines Scrn Negative ng/mL (Negative) 01/13/23 09:42 Urine Cocaine Screen Negative ng/mL (Negative) 01/13/23 09:42 U Marijuana (THC) Screen Negative ng/mL (Negative) 01/13/23 09:42 Ethyl Alcohol < 10 mg/dL (0-10) 01/13/23 08:26 SARS-CoV-2 Ag (Rapid) negative (Negative) 01/13/23 10:14 Critical Care Time Critical Care Time: Critical Care Time: Yes Total Critical Care Time: 80 Attestation: Due to a high probability of clinically significant, possibly life threatening deterioration, the patient required my highest level of attention and preparedness to intervene emergently and I personally spent this critical care time directly and personally managing the patient. This critical care time included obtaining a history; examining the patient; pulse oximetry; ordering and review of laboratory and imaging studies; arranging urgent treatment with development of a management plan; evaluation of patient's response to treatment; frequent reassessment; and, discussions with other providers as applicable. It was exclusive of separately billable procedures. Primary system involved is cardiopulmonary and infectious disease. Discharge Plan Discharge Patient Disposition: Xfer Short-Term Hosp Clinical Impression: Pneumonia, Anemia, Acute and chronic respiratory failure with hypoxia, Sepsis, Abnormal transaminases, Acute non-ST elevation myocardial infarction (NSTEMI), Bronchial obstruction Condition: Critical Referrals: Katrina Gaytan MD [Primary Care Provider] - Coding Level of Care Code ED [employer] for Bernice Day
--- NOTE | 2023-01-13 08:10 | XRR_ITS ---
PROCEDURE INFORMATION: Exam: XR Chest Exam date and time: 01/13/2023 8:13 AM Age: 67 years old Clinical indication: Device placement; Ett placement (vent status); Additional info: Intubated TECHNIQUE: Imaging protocol: Radiologic exam of the chest. Views: 1 view. COMPARISON: CR (CHEST, ) 01/08/2023 5:47 AM FINDINGS: Tubes, catheters and devices: High position of endotracheal tube, with distal tip above the clavicles and 10 cm above the bladimir. Lungs: Streaky left basilar atelectasis noted. Pneumonia should be excluded clinically. Pleural spaces: Unremarkable. No pleural effusion. No pneumothorax. Heart/Mediastinum: Stable cardiomediastinal silhouette. Bones/joints: Unremarkable. XR/XR chest 1V portable [id number] IMPRESSION: 1. High position of endotracheal tube with distal tip above the clavicles and 10 cm above the bladimir. Advancement is recommended. 2. Left basilar atelectasis. Pneumonia should be excluded clinically.
--- NOTE | 2023-01-13 08:13 | ECG_ITS ---
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 Measurements Intervals [place] Rate: 136 P: 76 PA: 139 QRS: -78 QRSD: 89 T: 44 QT: 248 QTc: 373 Interpretive Statements SINUS TACHYCARDIA POSSIBLE RIGHT VENTRICULAR CONDUCTION DELAY [RSR (QR) IN V1/V2] ANTERIOR MYOCARDIAL INFARCTION , OF INDETERMINATE AGE [40+ ms Q WAVE AND/OR ST/T ABNORMALITY IN V3/V4] INFERIOR MYOCARDIAL INFARCTION , OF INDETERMINATE AGE [40+ ms Q WAVE AND/OR ST/T ABNORMALITY IN II/aVF] Compared to ECG 01/08/2023 05:49:59 Atrial abnormality no longer present Myocardial infarct finding still present Electronically Signed On 01-13-2023 11:41:25 CDT by Amanda Salomon M.D. [email or web address]
[2023-01-13 08:19] LABS: ABG PCO2 40.6 mmHg (35-45); ABG PH Result 7.51 (7.35-7.45); Arterial Blood Gas Hematocrit 31.2 % (42-52); Base Excess ABG 8.5 mmol/L (-2.0-2.0); Blood Gas Allen Test Pos; Blood Gas Operator Identificat CAK; Blood Gas Sample Site Radial, left; Blood Gas Sample Type Arterial; HCO3 ABG 32.3 mmol/L (22-26); Oxygen Device VENT
--- NOTE | 2023-01-13 08:23 | CTR_ITS ---
PROCEDURE INFORMATION: Exam: CT Chest With Contrast; Diagnostic Exam date and time: 01/13/2023 8:57 AM Age: 67 years old Clinical indication: Other: AMS, found down TECHNIQUE: Imaging protocol: Diagnostic computed tomography of the chest with contrast. Radiation optimization: All CT scans at this facility use at least one of these dose optimization techniques: automated exposure control; mA and/or kV adjustment per patient size (includes targeted exams where dose is matched to clinical indication); or iterative reconstruction. Contrast material: OMNI 350; Contrast volume: 80 ml; Contrast route: INTRAVENOUS (IV); REPORTING DATA: Count of CT and Cardiac NM exams in prior 12 months: This patient has received 16 known CTs and 0 known cardiac nuclear medicine studies in the 12 months prior to the current study. COMPARISON: CT angio chest PE protcl [id number] 12/22/2022 10:10 PM RADIATION DOSE METRICS: Total DLP (mGy-cm): 839.16 FINDINGS: Tubes, catheters and devices: Endotracheal tube approximately 5 cm above the bladimir. Lungs: Emphysematous changes noted. Patchy opacities in the lingula. Patchy opacities and dense consolidation in the left lower lobe. Few patchy opacities in the medial and posterior basal segments of the right lower lobe. Occlusive filling defects in the left mainstem bronchus extending into the proximal segmental bronchi of the upper and lower lobes. Left lower lobe peribronchial thickening. Pleural spaces: Unremarkable. No pneumothorax. No pleural effusion. Heart: The heart is within normal limits for size. There is no evidence of pericardial abnormality. Coronary arteries: Coronary artery calcifications noted. Lymph nodes: Unremarkable. No enlarged lymph nodes. Vasculature: Air within the veins in the upper chest and neck likely related to intravenous access. Bones/joints: Multilevel degenerative changes in the spine. Soft tissues: Bilateral gynecomastia. COMMENTS: In the absence of a history or active diagnosis of lung cancer, it is recommended that this patient with emphysema be evaluated for enrollment in a low dose CT lung cancer screening program. PROCEDURE INFORMATION: Exam: CT Abdomen And Pelvis With Contrast Exam date and time: 01/13/2023 8:57 AM Age: 67 years old Clinical indication: Other: AMS, found down TECHNIQUE: Imaging protocol: Computed tomography of the abdomen and pelvis with contrast. Radiation optimization: All CT scans at this facility use at least one of these dose optimization techniques: automated exposure control; mA and/or kV adjustment per patient size (includes targeted exams where dose is matched to clinical indication); or iterative reconstruction. Contrast material: OMNI 350; Contrast volume: 80 ml; Contrast route: INTRAVENOUS (IV); REPORTING DATA: Count of CT and Cardiac NM exams in prior 12 months: This patient has received 16 known CTs and 0 known cardiac nuclear medicine studies in the 12 months prior to the current study. COMPARISON: CT kidney stone [id number] 06/06/2022 11:56 AM RADIATION DOSE METRICS: Total DLP (mGy-cm): 839.16 FINDINGS: Tubes, catheters and devices: Percutaneous gastrostomy tube malpositioned with the retention bulb outside the abdominal cavity in the superficial soft tissues with minimal surrounding subcutaneous emphysema. Liver: The liver is normal in size and contour. Gallbladder and bile ducts: Questionable layering small stones versus sludge in the gallbladder lumen. No signs of acute cholecystitis. Pancreas: The pancreas appears normal. Spleen: The spleen appears normal. Adrenal glands: The adrenals appear normal. Kidneys and ureters: The kidneys enhance symmetrically and empty into non-dilated ureters. Stomach and bowel: Postsurgical changes along the anterior margin of the stomach. The stomach appears unremarkable. The small bowel loops are not abnormally dilated. The large bowel loops are not abnormally dilated. Colonic diverticulosis without signs of acute diverticulitis. Appendix: The appendix appears normal. Intraperitoneal space: No ascites or significant fluid collection. Vasculature: The aorta is nonaneurysmal. The IVC appears normal. Lymph nodes: There are no enlarged lymph nodes. Urinary bladder: Denise catheter noted within the urinary bladder which is non-distended. Reproductive: Unremarkable as visualized. Bones/joints: Multilevel degenerative changes in the spine. Soft tissues: Unremarkable. CT/CT chest abdpel w/*[id number] IMPRESSION: 1. Findings concerning for pneumonia worse on the left versus the right. 2. Occlusive filling defects in the left mainstem bronchus extending into the proximal segmental bronchi of the upper and lower lobes. 3. Emphysematous disease. IMPRESSION: 1. Percutaneous gastrostomy tube malpositioned with the retention bulb outside the abdominal cavity in the superficial soft tissues with minimal surrounding subcutaneous emphysema. 2. Questionable layering small stones versus sludge in the gallbladder lumen. No signs of acute cholecystitis.
--- NOTE | 2023-01-13 08:23 | CTR_ITS ---
PROCEDURE INFORMATION: Exam: CT Head Without Contrast Exam date and time: 01/13/2023 8:53 AM Age: 67 years old Clinical indication: Altered mental status/memory loss; Additional info: AMS, found down TECHNIQUE: Imaging protocol: Computed tomography of the head without contrast. Radiation optimization: All CT scans at this facility use at least one of these dose optimization techniques: automated exposure control; mA and/or kV adjustment per patient size (includes targeted exams where dose is matched to clinical indication); or iterative reconstruction. REPORTING DATA: Count of CT and Cardiac NM exams in prior 12 months: This patient has received 16 known CTs and 0 known cardiac nuclear medicine studies in the 12 months prior to the current study. COMPARISON: CT head wo con* [id number] 01/25/2022 10:17 AM RADIATION DOSE METRICS: Total DLP (mGy-cm): 1111.99 FINDINGS: Tubes, catheters and devices: Feeding tube is partially included. Brain: No hemorrhage, mass effect or midline shift. No acute, major vascular distribution infarction identified. Small lacunar infarcts are again seen in the left basal ganglia. There is foci of decreased attenuation in the periventricular and subcortical white matter, likely representing chronic small vessel ischemic changes. Mild cerebral volume loss is present. No intra-axial or extra-axial fluid collection seen. Cerebral ventricles: No ventriculomegaly. Paranasal sinuses: Visualized sinuses are unremarkable. No fluid levels. Mastoid air cells: Visualized mastoid air cells are well aerated. Pharynx: Fluid opacification of the nasopharynx and oropharynx seen. Bones/joints: Unremarkable. No acute fracture. Soft tissues: Unremarkable. CT/CT head wo con* [id number] IMPRESSION: No acute intracranial abnormality.
--- NOTE | 2023-01-13 08:23 | CTR_ITS ---
PROCEDURE INFORMATION: Exam: CT Neck With Contrast Exam date and time: 01/13/2023 9:02 AM Age: 67 years old Clinical indication: Other: AMS, found down TECHNIQUE: Imaging protocol: Computed tomography of the neck with contrast. Radiation optimization: All CT scans at this facility use at least one of these dose optimization techniques: automated exposure control; mA and/or kV adjustment per patient size (includes targeted exams where dose is matched to clinical indication); or iterative reconstruction. Contrast material: OMNI 350; Contrast volume: 40 ml; Contrast route: INTRAVENOUS (IV); REPORTING DATA: Count of CT and Cardiac NM exams in prior 12 months: This patient has received 16 known CTs and 0 known cardiac nuclear medicine studies in the 12 months prior to the current study. COMPARISON: CT neck w con* [id number] 12/06/2022 8:27 PM RADIATION DOSE METRICS: Total DLP (mGy-cm): 262.08 FINDINGS: Tubes, catheters and devices: Endotracheal tube is in satisfactory position. Pharynx: There is fluid opacification of the nasopharynx and oropharynx. Similar appearance of diffuse mucosal edema of the hypopharynx with enlargement of the epiglottis and partial effacement of the piriformis sinuses, likely due to radiation therapy, as previously mentioned. Larynx: See Pharynx finding. Prevertebral and retropharyngeal spaces: Trace retropharyngeal fluid re-identified. Salivary glands: Normal. Glands are normal in size. Thyroid: Normal. No enlarged or calcified nodules. Lymph nodes: Small reactive mediastinal lymph nodes noted. Trachea: Visualized trachea is unremarkable. Lungs: Fluid is seen within the distal trachea and main left and right bronchi. Centrilobular emphysema is present. There is mild peribronchial thickening in association with mucous plugging and tree-in-bud airspace opacities scattered throughout the left lung. Pleural spaces: Small left pleural effusion. Bones/joints: Degenerative changes of the spine seen. Vasculature: Mild diffuse atherosclerotic disease is present. Soft tissues: Similar appearance of subcutaneous edema in the neck bilaterally, left greater than right. No discrete fluid collection seen. CT/CT neck w con* [id number] IMPRESSION: 1. Similar edematous changes in the larynx/pharynx. 2. New mild peribronchial thickening and tree-in-bud airspace opacities scattered throughout the left lung, consistent with infectious process. 3. Fluid seen within the distal trachea and main bronchi bilaterally.
[2023-01-13 08:49] LABS: Basophils % 0.1 %; Hematocrit 29.1 % (42.0-52.0); Hemoglobin 8.9 g/dL (11.7-16.6); Lymphocytes # 0.4 10^3/uL (0.8-4.8); Lymphocytes % 4.5 %; Mean Corpuscular HGB Conc 30.6 g/dL (30.0-36.0); Mean Corpuscular Hemoglobin 28.3 pg (28.0-34.0); Mean Corpuscular Volume 92.7 fl (80-94); Mean Platelet Volume 9.4 fL (7.4-10.4); Monocytes # 0.8 10^3/uL (0.2-0.9); Monocytes % 8.7 %; Neutrophils # 7.56 10^3/uL (1.8-7.7); Neutrophils % 85.7 %; Nucleated Red Blood Cells % 0.2 %; Platelet Count 281 10^3/cmm (130-400); Red Blood Count 3.14 10^6/uL (4.1-5.3); Red Cell Distribution Width 15.9 % (12.1-15.1); White Blood Count 8.8 10^3/uL (4.0-10.0)
[2023-01-13 08:56] LABS: INR 1.05 (0.8-1.2)
[2023-01-13 08:57] LABS: Partial Thromboplastin Time 27.8 SECONDS (23.9-36.7)
[2023-01-13] MEDS: iohexol 350 mg/mL 500 mL Btl (per mL) IV ×2 (09:04→09:06)
[2023-01-13 09:07] LABS: Lactic Sepsis W/Reflex 1.3 mmol/L (0.5-2.2)
[2023-01-13 09:08] LABS: Digoxin 0.6 ng/mL (0.6-1.2)
[2023-01-13 09:15] LABS: Alanine Aminotransferase 71 U/L (0-41); Albumin Level 2.4 g/dL (3.5-5.2); Alkaline Phosphatase 151 U/L (40-130); Aspartate Amino Transferase 62 U/L (0-40); Blood Urea Nitrogen 43 mg/dL (8-23); Calcium 8.1 mg/dL (8.5-10.5); Carbon Dioxide 30 mmol/L (22-29); Chloride 99 mmol/L (98-107); Creatine Phosphokinase 27 U/L (39-308); Globulin 2.1 g/dL (1.3-4.6); Glomerular Filtration Rate 134.8 mL/min (90-130); Glucose 147 mg/dL (65-115); Magnesium 1.8 mg/dL (1.7-2.3); NT Pro B Type Natriuretic Pept 2515 pg/mL (0-125); Osmolality Calculated 300 mOsm/kg (285-295); Sodium 138 mmol/L (136-145); Thyroid Stimulating Hormone 2.09 uIU/mL (0.27-4.20); Total Bilirubin 0.3 mg/dL (0.15-1.2); Total Protein 4.5 g/dL (6.6-8.7)
[2023-01-13 09:30] LABS: Acetaminophen < 5.0 ug/mL (10-30); Alcohol Level < 10 mg/dL (0-10); Anion Gap 14.2 (5-19); Salicylate < 0.3 mg/dL (3-10)
[2023-01-13 09:31] LABS: Potassium 5.2 mmol/L (3.5-5.1)
[2023-01-13 09:32] LABS: Troponin(5th) Baseline 132 ng/L (0-15)
[2023-01-13] MEDS: fentaNYL 50 mcg/mL INJ 2mL IVP (10:10)
[2023-01-13] MEDS: fentaNYL 50 mcg/mL INJ 2mL 100 MCG IVP (10:10)
[2023-01-13] MEDS: sodium chloride 0.9% 1,000 ML 999 ML IV (10:10)
[2023-01-13] MEDS: lactated ringers 1,000 ML 999 ML IV (10:11)
[2023-01-13] MEDS: piperacillin-tazobactam 3.375 GM in sodium chloride 0.9% (plus) 50 ML IV (10:11)
--- NOTE | 2023-01-13 10:14 | ECG_ITS ---
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 Measurements Intervals Edwards Rate: 125 P: 85 AR: 136 QRS: 229 QRSD: 83 T: 44 QT: 270 QTc: 389 Interpretive Statements SINUS TACHYCARDIA POSSIBLE RIGHT VENTRICULAR HYPERTROPHY [SOME/ALL OF: PROMINENT R IN V1, LATE TRANSITION, RAD, TORI, SSS] ANTERIOR MYOCARDIAL INFARCTION , OF INDETERMINATE AGE [40+ ms Q WAVE AND/OR ST/T ABNORMALITY IN V3/V4] INFERIOR MYOCARDIAL INFARCTION , OF INDETERMINATE AGE [40+ ms Q WAVE AND/OR ST/T ABNORMALITY IN II/aVF] Compared to ECG 01/13/2023 08:13:02 No significant changes Electronically Signed On 01-15-2023 21:38:08 CDT by Amanda Salomon M.D. [id number]
[2023-01-13] MEDS: vancomycin 1,500 MG/300 ML PIGGYBACK 200 MG IV (10:21)
[2023-01-13 10:55] LABS: Amphetamines Screen Urine Negative (Negative); Barbiturates Screen Urine Negative (Negative); Benzodiazepines Screen Urine Negative (Negative); Cocaine Screen Urine Negative (Negative); Opiate Screen Urine Negative (Negative); PCP Screen Urine Negative (Negative); THC Screen Urine Negative (Negative)
[2023-01-13 11:10] LABS: Add Urine Microscopic? YES; Bilirubin Urine Neg (Negative); Blood Urine 3+ (Negative); Glucose Urine UA Norm (Normal); Ketones Urine Negative (Negative); Leukocyte Esterase Urine Trace (Negative); Nitrate Urine Negative (Negative); Protein Urine 2+ (Negative); Specific Gravity, Urine 1.005 (1.005-1.030); Urine Appearance Hazy (CLEAR); Urine Color Dark Yellow (Yellow); Urobilinogen Urine Norm (Negative); pH Urine 5 (5-7)
[2023-01-13 11:12] LABS: RBC Urine >100 /hpf (0-2)
[2023-01-13 11:13] LABS: Bacteria Urine TRACE /hpf; WBC Urine 0-4 /hpf (0-5)
[2023-01-13 11:14] LABS: Add Urine Culture? Yes; Hyaline Casts Urine 0-4 /lpf
[2023-01-13 11:47] LABS: SARS Covid-2 Antigen negative (Negative)
[2023-01-13 12:27] LABS: Troponin 5 2HR 145.6 ng/L (0-15); Troponin 5 2HR Delta 13.6 ABS# (0-10)
== END 2023-01-13 13:06 | disposition short-term general hospital (02) ==
PROVIDERS: Emergency Provider Emergency Medicine; PCP Family Medicine
DX: J96.21 Acute and chronic respiratory failure with hypoxia (principal); A41.9 Sepsis, unspecified organism; J18.9 Pneumonia, unspecified organism; I21.4 Non-ST elevation (NSTEMI) myocardial infarction; I10 Essential (primary) hypertension; I25.119 Atherosclerotic heart disease of native coronary artery with unspecified angina pectoris; D64.9 Anemia, unspecified; J98.09 Other diseases of bronchus, not elsewhere classified; R74.01 Elevation of levels of liver transaminase levels; F17.210 Nicotine dependence, cigarettes, uncomplicated; Z99.81 Dependence on supplemental oxygen; Z93.1 Gastrostomy status; Z95.5 Presence of coronary angioplasty implant and graft
CPT/HCPCS: 36556; 36600; 70450; 70491; 71045; 71260; 74177; 80053; 80162; 80306; 80307; 81001; 82550; 82803; 83605; 83735; 83880; 84443; 84484; 85025; 85610; 85730; 87040; 87070; 87077; 87086; 87186; 87205; 87426; 93005; 94002; 94799; 96365; 96366; 96367; 96375; 96376; 99291; 99292; J2250; J2543; J3010; J3370; J7030; J7050; J7060; J7120; Q9967